=== PATIENT | male | born 1955 | race Caucasian/White ===

== ENCOUNTER → 2017-07-12 | Outpatient (CLI) | payer OTHER ==
[~2017-07-12] MED LIST: ASPEC81 PO; EMPA1TAB PO; INSDGIPEN SC; LPR25 PO; LPT40 PO; LSN5 PO; METF750T PO; NTRSLP4 SL; PLV75 PO
== END | disposition home or self-care (01) ==
LOC: C.LABSPEC 17:39
PROVIDERS: ATTEND Urology
DX: R31.0 Gross hematuria (principal); N40.1 Benign prostatic hyperplasia with lower urinary tract symptoms

== ENCOUNTER → 2017-08-01 | Outpatient (CLI) | payer OTHER ==
[2017-08-01 13:08] LABS: ALT/SGPT 61 U/L (12-78); AST/SGOT 26 U/L (15-37); BLOOD UREA NITROGEN 14 mg/dl (7-18); BUN/CREATININE RATIO 13.5 (10-20); CALCIUM 8.9 mg/dl (8.5-10.1); CARBON DIOXIDE 24 mmol/L (21-32); CHLORIDE 106 mmol/L (98-107); CREATININE 1.04 mg/dl (0.60-1.40); GLUCOSE 158 mg/dl (70-99); POTASSIUM 3.8 mmol/L (3.5-5.1); SODIUM 137 mmol/L (136-145)
[2017-08-01 13:11] LABS: ALB/GLOB RATIO 1.3 (0.9-2); ALKALINE PHOSPHATASE 70 U/L (45-117)
== END | disposition home or self-care (01) ==
LOC: C.LAB 11:14
PROVIDERS: ATTEND Urology
DX: R31.0 Gross hematuria (principal); N40.1 Benign prostatic hyperplasia with lower urinary tract symptoms

== ENCOUNTER 2017-08-07 07:53 | Emergency (ER) | payer OTHER ==
[2017-08-07 08:06] VITALS: TEMP 36.6; Ht 182.9 cm
[2017-08-07] MEDS ORDERED: REPA1TAB5 PO (08:15)
[2017-08-07] MEDS ORDERED: ULT50 PO (08:15)
[2017-08-07] MEDS ORDERED: JNV100 PO (08:15)
[2017-08-07 09:37] LABS: URINE APPEARANCE CLEAR (CLEAR); URINE BILIRUBIN NEG (NEG); URINE COLOR YELLOW; URINE EPITHELIAL CELL AUTO 20-30 /lpf (0-5); URINE NITRITE NEG (NEG); URINE PH 5.5 (4.5-7.5); URINE SPECIFIC GRAVITY 1.013 (1.000-1.030); UROBILINOGEN NEG (NEG); ZZURINE CULT IF INDIC CATH NO
[2017-08-07 09:38] LABS: MANUAL MICROSCOPIC REQUIRED? NO; REVIEW REQ? NO
[2017-08-07] MEDS ORDERED: MoRPHine SULFATE 4 MG/ML 1 ML CARP\\VIAL IV STA ×2 (10:44→11:41)
[2017-08-07 11:49] LABS: BLOOD UREA NITROGEN 14 mg/dl (7-18); BUN/CREATININE RATIO 12.7 (10-20); CALCIUM 8.9 mg/dl (8.5-10.1); CARBON DIOXIDE 24 mmol/L (21-32); CHLORIDE 106 mmol/L (98-107); CREATININE 1.12 mg/dl (0.60-1.40); GLUCOSE 96 mg/dl (70-99); SODIUM 139 mmol/L (136-145)
[2017-08-07] MEDS ORDERED: HYDROmorphone INJ 2 MG/ML SYR/VIAL IV STA (12:50)
[2017-08-07] MEDS ORDERED: OPTIRAY 320 IV PRN (13:00)
[2017-08-07 13:40] LABS: HEMATOCRIT 42.4 % (42-52); MEAN CORPUSCULAR HEMOGLOBIN 32.1 pg (25-34); MEAN CORPUSCULAR HGB CONC 34.9 g/dl (32-36); MEAN PLATELET VOLUME 10.3 fL (7.4-10.4); PLATELET COUNT 170 K/uL (130-400); RED BLOOD COUNT 4.61 M/uL (4.7-6.1); WHITE BLOOD COUNT 9.48 K/uL (4.8-10.8)
--- NOTE | 2017-08-07 13:53 | DIAGNOSTIC IMAGING REPORT ---
ABD/PELVIS IV CONTRAST ONLY CLINICAL HISTORY: 62 years-old Male presenting with pelvis pain, bladder mass, hematuria, urinary symptoms. TECHNIQUE: Multidetector CT of the abdomen and pelvis was performed after the administration of intravenous contrast. IV contrast: 92 mL of Optiray 320. A dose lowering technique was used consistent with the principles of ALARA (as low as reasonably achievable). COMPARISON: None. CT DOSE (mGy.cm): The estimated cumulative dose is 1538.25 mGycm. FINDINGS: Communication Technician topogram: Diffuse small bowel gaseous distention. Lung bases: Minimal dependent changes likely atelectasis. Solid triangular peripheral nodule in the right middle lobe measuring 4 mm (see series 3 image 50). Normal heart size. Coronary artery calcification. No pericardial or pleural effusion. Liver: Normal morphology. No liver lesion. Patent hepatic vasculature. Biliary: No intrahepatic or extrahepatic biliary ductal dilatation. Normal gallbladder. Pancreas: Normal. Spleen: Normal. Adrenal glands: Normal. Kidneys and ureters: Mild right pelvocaliectasis with dilatation of the right ureter to the level of the right ureterovesical junction. No significant urothelial thickening along the ureter though periureteral fat stranding is noted along the right ureter. Relative hypoperfusion of the right kidney. Punctate nonobstructing calculus at the upper pole the right kidney. Multiple subcentimeter hypodensities in the kidneys bilaterally most likely cysts. Left ureter normal. Bladder: Irregular bladder wall thickening greatest along the right lateral aspect and at the fundus. This is even better characterized on delayed imaging with partial opacification of the urinary bladder. A Hernandez catheter decompresses the urinary bladder on initial phase. Pelvic organs: Prostate and seminal vesicles normal. Bowel: Diverticulosis of the sigmoid colon. Mild stool burden throughout normal caliber colon. Normal appendix. No bowel obstruction. Mild gaseous and fluid distention of small bowel in the left mid abdomen. Peritoneal cavity: No free fluid or intraperitoneal gas. Lymph nodes: No enlarged lymph nodes in the abdomen or pelvis. Vasculature: Atherosclerosis of the normal caliber abdominal aorta. IVC patent. Abdominal wall: Normal. Musculoskeletal: Degenerative changes of the spine. IMPRESSION: 1. Irregular bladder wall thickening along the right lateral aspect and at the fundus most consistent with bladder neoplasm, likely of urothelial origin. This results in mild right hydroureteronephrosis. No CT evidence of additional urothelial neoplasm allowing for nonopacification of the right renal collecting system. No lymphadenopathy or evidence of metastatic disease in the abdomen or pelvis. 2. Diverticulosis. 3. Solid subpleural 4 mm nodule in the right middle lobe. Electronically signed by: Benton Recio M.D. 08/07/2017 1:52 PM Dictated Date/Time: 08/07/2017 1:43 PM
--- NOTE | 2017-08-07 15:14 | EMERGENCY ROOM VISIT NOTE ---
History Report prepared by Francisco: Kaye Moreira Under the Supervision of: Dr. Harinder Chong D.O. First contact with patient: 08:25 Chief Complaint: URINARY SYMPTOMS Stated Complaint: URINARY SYMPTOMS Nursing Triage Summary: patient reports he has a tumor in his baldder he has been dealing with. It gets painful when it swells. I can only void small amounts at a time. but when it swells I also have trouble going number 2. last bm was this morning. patient has noticed some blood in urine from time to time. takes 81 mg asprin. History of Present Illness The patient is a 62 year old male who presents to the Emergency Room with complaints of persistent urinary symptoms for the past several days. He currently rates his discomfort as a 6/10 in severity. The patient reports that a few weeks ago he was diagnosed with a bladder tumor, noting that he follows with urology and oncology at [facility]. He states that recently he has had difficulty urinating and has been experiencing urinary retention. The patient states that when he urinates it is painful and additionally notes frequency. He report hematuria as well. The patient states that he has been constipated. He reports lower abdominal pain today with his symptoms. Source of History: patient Onset: past several days Position: other (global) Symptom Intensity: 6/10 Quality: other (urinary symptoms) Timing: other (persistent) Associated Symptoms: + abdominal pain (lower), + urinary symptoms (hematuria , frequency, painful urination, urinary retention) Review of Systems See HPI for pertinent positives & negatives. A total of 10 systems reviewed and were otherwise negative. Past Medical & Surgical Medical Problems: (1) Chronic back pain (2) Diabetes mellitus (3) Dyslipidemia Family History Cancer Diabetes mellitus Social History Smoking Status: Never Smoker Drug Use: none Marital Status: Housing Status: lives with significant other Occupation Status: retired Current/Historical Medications Scheduled Aspirin (Aspirin EC Low Dose), 81 MG PO QAM Atorvastatin (Atorvastatin Calcium), 80 MG PO QAM Clopidogrel Bisulfate (Clopidogrel), 75 MG PO QAM Insulin Glargine (Lantus Solostar), 10 UNIT SC DAILY Lisinopril (Lisinopril), 5 MG PO QAM Metformin Hcl (Glucophage Er), 750 MG PO BID Metoprolol Tartrate (Lopressor), 25 MG PO Q12 Repaglinide (Prandin), 0.5 MG PO DAILY Sitagliptin (Januvia), 100 MG PO QAM Scheduled PRN Tramadol HCl (Tramadol HCl), 50 MG PO UD PRN for Pain Allergies Coded Allergies: No Known Allergies (Unverified , 08/07/17) Physical Exam Vital Signs Date Time Temp Pulse Resp B/P (MAP) Pulse Ox O2 Delivery O2 Flow Rate FiO2 08/07/17 15:09 47 18 153/87 97 Room Air 08/07/17 12:57 60 16 123/78 95 Room Air 08/07/17 12:36 56 20 122/75 94 Room Air 08/07/17 11:13 52 18 167/95 98 Room Air 08/07/17 09:28 56 18 141/85 98 Room Air 08/07/17 08:06 36.6 59 18 150/87 98 Room Air Physical Exam CONSTITUTIONAL/VITAL SIGNS: Reviewed / noted above. GENERAL: Non-toxic in appearance. INTEGUMENTARY: Warm, dry, and [place]. HEAD: Normocephalic. EYES: without scleral icterus or trauma. ENT/OROPHARYNX: clear and moist. LYMPHADENOPATHY/NECK: Is supple without lymphadenopathy or meningismus. RESPIRATORY: Lungs clear and equal. CARDIOVASCULAR: Regular rate and rhythm. GI/ABDOMEN: Soft and tender in the suprapubic area. No organomegaly or pulsatile mass. No rebound or guarding. Normal bowel sounds. EXTREMITIES: Warm and well perfused. BACK: No CVA tenderness. NEUROLOGICAL: Intact without focal deficits. PSYCHIATRIC: normal affect. MUSCULOSKELETAL: Normally developed with good muscle tone. TRIAGE NURSING DOCUMENTATION REVIEWED. Medical Decision & Procedures ER Provider Diagnostic Interpretation: CT results as stated below per my review and radiologist interpretation: ABD/PELVIS IV CONTRAST ONLY CLINICAL HISTORY: 62 years-old Male presenting with pelvis pain, bladder mass, hematuria, urinary symptoms. TECHNIQUE: Multidetector CT of the abdomen and pelvis was performed after the administration of intravenous contrast. IV contrast: 92 mL of Optiray 320. A dose lowering technique was used consistent with the principles of ALARA (as low as reasonably achievable). COMPARISON: None. CT DOSE (mGy.cm): The estimated cumulative dose is 1538.25 mGycm. FINDINGS: Animal Care Giver topogram: Diffuse small bowel gaseous distention. Lung bases: Minimal dependent changes likely atelectasis. Solid triangular peripheral nodule in the right middle lobe measuring 4 mm (see series 3 image 50). Normal heart size. Coronary artery calcification. No pericardial or pleural effusion. Liver: Normal morphology. No liver lesion. Patent hepatic vasculature. Biliary: No intrahepatic or extrahepatic biliary ductal dilatation. Normal gallbladder. Pancreas: Normal. Spleen: Normal. Adrenal glands: Normal. Kidneys and ureters: Mild right pelvocaliectasis with dilatation of the right ureter to the level of the right ureterovesical junction. No significant urothelial thickening along the ureter though periureteral fat stranding is noted along the right ureter. Relative hypoperfusion of the right kidney. Punctate nonobstructing calculus at the upper pole the right kidney. Multiple subcentimeter hypodensities in the kidneys bilaterally most likely cysts. Left ureter normal. Bladder: Irregular bladder wall thickening greatest along the right lateral aspect and at the fundus. This is even better characterized on delayed imaging with partial opacification of the urinary bladder. A Hernandez catheter decompresses the urinary bladder on initial phase. Pelvic organs: Prostate and seminal vesicles normal. Bowel: Diverticulosis of the sigmoid colon. Mild stool burden throughout normal caliber colon. Normal appendix. No bowel obstruction. Mild gaseous and fluid distention of small bowel in the left mid abdomen. Peritoneal cavity: No free fluid or intraperitoneal gas. Lymph nodes: No enlarged lymph nodes in the abdomen or pelvis. Vasculature: Atherosclerosis of the normal caliber abdominal aorta. IVC patent. Abdominal wall: Normal. Musculoskeletal: Degenerative changes of the spine. IMPRESSION: 1. Irregular bladder wall thickening along the right lateral aspect and at the fundus most consistent with bladder neoplasm, likely of urothelial origin. This results in mild right hydroureteronephrosis. No CT evidence of additional urothelial neoplasm allowing for nonopacification of the right renal collecting system. No lymphadenopathy or evidence of metastatic disease in the abdomen or pelvis. 2. Diverticulosis. 3. Solid subpleural 4 mm nodule in the right middle lobe. Electronically signed by: Benton Recio M.D. 08/07/2017 1:52 PM Dictated Date/Time: 08/07/2017 1:43 PM Laboratory Results 08/07/17 11:00 08/07/17 11:00 Test 08/07/17 09:20 08/07/17 11:00 Urine Color YELLOW Urine Appearance CLEAR (CLEAR) Urine pH 5.5 (4.5-7.5) Urine Specific [place] 1.013 (1.000-1.030) Urine Protein NEG (NEG) Urine Glucose (UA) NEG (NEG) Urine Ketones NEG (NEG) Urine Occult Blood 2+ (NEG) Urine Nitrite NEG (NEG) Urine Bilirubin NEG (NEG) Urine Urobilinogen NEG (NEG) Urine Leukocyte Esterase NEG (NEG) Urine WBC (Auto) 1-5 /hpf (0-5) Urine RBC (Auto) 10-30 /hpf (0-4) Urine Hyaline Casts (Auto) 1-5 /lpf (0-5) Urine Epithelial Cells (Auto) 20-30 /lpf (0-5) Urine Bacteria (Auto) NEG (NEG) Red Blood Count 4.61 M/uL (4.7-6.1) Mean Corpuscular Volume 92.0 fL (80-100) Mean Corpuscular Hemoglobin 32.1 pg (25-34) Mean Corpuscular Hemoglobin Concent 34.9 g/dl (32-36) RDW Standard Deviation 43.9 fL (36.4-46.3) RDW Coefficient of Variation 13.0 % (11.5-14.5) Mean Platelet Volume 10.3 fL (7.4-10.4) Anion Gap 9.0 mmol/L (3-11) Estimated GFR () 80.6 Estimated GFR (Non- 69.5 BUN/Creatinine Ratio 12.7 (10-20) Calcium Level 8.9 mg/dl (8.5-10.1) Laboratory results as stated above per my review. Medications Administered Medications (Trade) Dose Ordered Sig/Young Route Start Time Stop Time Status Last Admin Dose Admin Morphine Sulfate (MoRPHine SULFATE INJ) 4 mg NOW STAT IV 08/07/17 10:44 08/07/17 10:45 DC 08/07/17 10:59 4 MG Morphine Sulfate (MoRPHine SULFATE INJ) 4 mg NOW STAT IV 08/07/17 11:41 08/07/17 11:42 DC 08/07/17 11:49 4 MG Hydromorphone HCl (Dilaudid Inj) 2 mg NOW STAT IV 08/07/17 12:50 08/07/17 12:52 DC 08/07/17 12:57 2 MG ED Course 0935: Previous medical records were reviewed. The patient was evaluated in room A3. A complete history and physical examination was performed. 1015: The patients case was discussed with [facility]. She states that the plan is to have the patient follow up with his doctors in [place] on as planned and then a plan will be devised from there. She notes that she spoke to the patients daughter regarding this. 1044: Ordered Morphine Sulfate 4 mg IV. 1050: I reevaluated the patient and he is resting. I discussed the test results with him and I discussed the treatment plan. He verbalized complete understanding and agreement. 1141: Ordered Morphine Sulfate 4 mg IV. 1250: Ordered Dilaudid Inj 2 mg IV. 1406: I reevaluated the patient and he is resting. I discussed the test results with the patient and he verbalized complete understanding and agreement. He states that his pain has improved. 1429: I discussed the patients case with Dr. Orlando, [facility]. He states that they will accept the patient as a transfer to their facility for further evaluation and treatment. 1435: I reevaluated the patient and he is resting. I discussed the treatment plan and he verbalized complete understanding and agreement. The patient will be transferred to [facility] for further evaluation and treatment. Medical Decision Differential considered: pancreatitis, hepatitis, acute cholecystitis, AAA, UTI , pyelonephritis, kidney stones, appendicitis, diverticulitis, shingles, bowel obstruction, mesenteric ischemia, intussusception,hernia, testicular torsion, ovarian torsion, ruptured ovarian cyst,ectopic , . This is a 62-year-old male who presents to the ED with a chief complaint of having been diagnosed with a bladder tumor several weeks ago. He was having discomfort in the bladder and came to the ED for evaluation. He thought that he might be obstructed. The patient has seen Dr. Moralez for this in the past. He has been referred to [place] and has an appointment on for testing. The patient has been taking Ultram and Motrin for his pain at home. His exam reveals some tenderness over the suprapubic area. A Hernandez catheter was placed and only 200 mL of urine was obtained. The patient's discomfort is likely related to his bladder tumor which is around 7 cm. Urine did not show obvious infection. Kidney function is normal. The patient was treated with IV morphine for pain. Blood work here reveals a normal CBC and chemistry panel. Urine did not show obvious infection. Medication Reconcilliation Current Medication List: was personally reviewed by me Consults Time Called: 1010 Consulting Physician: Dennis Eason Returned Call: [phone] The patients case was discussed with Dennis Eason. She states that the plan is to have the patient follow up with his doctors in [place] on as planned and then a plan will be devised from there. She notes that she spoke to the patients daughter regarding this. Additional Consults: Time Called: 1420 Consulted Physician: Dennis Ovalles Returned Call: [phone] Additional Comments: I discussed the patients case with Dr. Orlando, [facility]. He states that they will accept the patient as a transfer to their facility for further evaluation and treatment. Impression Primary Impression: Bladder neoplasm Additional Impression: Intractable abdominal pain Scribe Attestation The scribe's documentation has been prepared under my direction and personally reviewed by me in its entirety. I confirm that the note above accurately reflects all work, treatment, procedures, and medical decision making performed by me. Departure Information Dispostion Transfer Acute Care Facility Referrals No Doctor, Assigned (PCP) Problem Qualifiers
[2017-08-07 16:15] VITALS: BP 154/82; PULSE 52; O2SAT 97
== END 2017-08-07 16:20 | disposition short-term general hospital (02) ==
LOC: C.EDB 07:55 → C.EDA 16:20
DX: D41.4 Neoplasm of uncertain behavior of bladder (principal); R10.9 Unspecified abdominal pain; E11.9 Type 2 diabetes mellitus without complications; E78.5 Hyperlipidemia, unspecified; Z83.3 Family history of diabetes mellitus; Z79.82 Long term (current) use of aspirin; Z79.02 Long term (current) use of antithrombotics/antiplatelets; Z79.4 Long term (current) use of insulin; Z79.84 Long term (current) use of oral hypoglycemic drugs; Z79.899 Other long term (current) drug therapy

== ENCOUNTER → 2017-08-17 | Outpatient (CLI) | payer OTHER ==
[~2017-08-17] MED LIST changes: +ALBU18002 INH; +ASPI81TA28 PO; +ATOR-26 PO; +CITA10TA4 PO; +DOCU-94 PO; +DTR/5 PO; -EMPA1TAB PO; +GABA-113 PO; +GLIM4TAB2 PO; +JNV100 PO; +LISI-729 PO; +METO25TA56 PO; -NTRSLP4 SL; +ONDA8TAB62 SL; +OXYC1TAB3 PO; +PHEN-876 PO; +REPA1TAB5 PO; +SULF800T23 PO; +TAMS0.4C38 PO; +ULT50 PO
[2017-08-17 11:41] LABS: HEMATOCRIT 42.4 % (42-52); MEAN CELL VOLUME 93.4 fL (80-100); MEAN CORPUSCULAR HEMOGLOBIN 32.2 pg (25-34); MEAN CORPUSCULAR HGB CONC 34.4 g/dl (32-36); MEAN PLATELET VOLUME 10.3 fL (7.4-10.4); PLATELET COUNT 243 K/uL (130-400); RED BLOOD COUNT 4.54 M/uL (4.7-6.1)
[2017-08-17 12:08] LABS: ALB/GLOB RATIO 0.9 (0.9-2); ALKALINE PHOSPHATASE 85 U/L (45-117); ALT/SGPT 57 U/L (12-78); AST/SGOT 25 U/L (15-37); BLOOD UREA NITROGEN 16 mg/dl (7-18); BUN/CREATININE RATIO 12.5 (10-20); CALCIUM 8.8 mg/dl (8.5-10.1); CARBON DIOXIDE 29 mmol/L (21-32); CHLORIDE 102 mmol/L (98-107); CREATININE 1.24 mg/dl (0.60-1.40); GLUCOSE 84 mg/dl (70-99); POTASSIUM 4.2 mmol/L (3.5-5.1); SODIUM 138 mmol/L (136-145)
== END | disposition home or self-care (01) ==
LOC: C.LAB 10:54
PROVIDERS: ATTEND Urology
DX: C67.9 Malignant neoplasm of bladder, unspecified (principal)

== ENCOUNTER 2017-08-21 23:08 | Emergency (ER) | payer OTHER ==
[~2017-08-21] VITALS: Ht 182.9 cm; Wt 105.1 kg
[~2017-08-21 23:08] MED LIST changes: -ALBU18002 INH; -ASPI81TA28 PO; -ATOR-26 PO; -CITA10TA4 PO; -DOCU-94 PO; -DTR/5 PO; -GABA-113 PO; -GLIM4TAB2 PO; -JNV100 PO; -LISI-729 PO; -METF750T PO; -METO25TA56 PO; -ONDA8TAB62 SL; -OXYC1TAB3 PO; -PHEN-876 PO; -REPA1TAB5 PO; -SULF800T23 PO; -TAMS0.4C38 PO
[2017-08-21 23:12] VITALS: TEMP 36.3; Ht 182.9 cm; Wt 105.1 kg
[2017-08-21] MEDS ORDERED: ONDANSETRON INJ 2 MG/ML 2 ML VIAL IV STA (23:40)
[2017-08-21] MEDS ORDERED: MoRPHine SULFATE 10 MG/ML CARP/VIAL IV STA (23:40)
--- NOTE | 2017-08-21 23:48 | EMERGENCY ROOM VISIT NOTE ---
History Report prepared by Francisco: Dmitriy Tate Under the Supervision of: Dr. Keyana Dowling D.O. First contact with patient: 23:18 Chief Complaint: ABDOMINAL PAIN Stated Complaint: BLADDER PAIN History of Present Illness The patient is a 62 year old male who presents to the Emergency Room with complaints of lower abdominal pain that began a couple of months ago, but worsened over the past three days. He rates his pain a 9/10 in severity. 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 He believes his pain to be stemming from his tumor. 10 days ago, he was unable to urinate, so he had a Hernandez catheter placed. Today, he noticed that his Hernandez has been draining blood intermittently whenever he attempts to pass gas or have a bowel movement. He notes that he is taking 2 Oxycodone every four hours with a stool softener and a high fiber diet. He feels as if he either is constipated or has a excess of gas built up. His last bowel movement was yesterday. He has also been experiencing chills and shaking. He denies any hematochezia. Source of History: patient Onset: three nights ago Position: abdomen (lower) Symptom Intensity: 9/10 Quality: sharp Timing: worsening Associated Symptoms: + chills, + urinary symptoms (hematuria while attempting to pass gas/bowel matter), No hematochezia Review of Systems See HPI for pertinent positives & negatives. A total of 10 systems reviewed and were otherwise negative. Past Medical & Surgical Medical Problems: (1) Chronic back pain (2) Diabetes mellitus (3) Dyslipidemia Family History Cancer Diabetes mellitus Social History Smoking Status: Former Smoker Drug Use: none Marital Status: Housing Status: lives with significant other Occupation Status: retired Current/Historical Medications Scheduled Aspirin (Aspirin Ec), 81 MG PO QAM Atorvastatin (Lipitor), 80 MG PO DAILY Glimepiride (Glimepiride), 4 MG PO BID Lisinopril (Zestril), 5 MG PO QAM Metformin Hcl (Glucophage Er), 750 MG PO BID Metoprolol Tartrate (Lopressor) (Lopressor), 25 MG PO Q12 Repaglinide (Prandin), 0.5 MG PO DAILY Sitagliptin (Januvia), 100 MG PO QAM Sulfamethoxazole-Trimethoprim (Bactrim Ds 800MG/160MG), 1 TAB PO BID Scheduled PRN Albuterol Sulfate (Proair Respiclick), 2 PUFFS INH UD PRN for SOB/Wheezing Oxycodone Immediate Rel Tab (Roxicodone Ir), 1-2 TAB PO Q4H PRN for Severe Pain Allergies Coded Allergies: No Known Allergies (Unverified , 08/07/17) Physical Exam Vital Signs Date Time Temp Pulse Resp B/P (MAP) Pulse Ox O2 Delivery O2 Flow Rate FiO2 08/22/17 04:16 75 18 114/63 95 08/22/17 02:48 62 18 118/59 97 Nasal Cannula 2.0 08/22/17 00:56 66 18 116/66 93 Room Air 08/21/17 23:12 36.3 75 18 137/78 96 Room Air Physical Exam HEENT: Head - normocephalic and atraumatic Pupils are equal, round, and reactive to light. Extraocular eye muscles are intact, and sclera are anicteric. Nose - moist nasal mucosa without discharge. Mouth - moist buccal mucosa. Oropharynx is nonerythematous and there is no tonsillar exudate or edema noted. Neck: Supple; no JVD, nuchal rigidity, cervical lymphadenopathy. Heart: Regular rate and rhythm. There is a normal S1 and S2 with no murmurs, clicks, or gallops appreciated. Lungs: Clear to auscultation bilaterally with no wheezes, rales, or rhonchi. Abdomen: Soft, exquisite pain to palpation suprapubically and to the LLQ, nondistended, with good bowel sounds. There are no palpable pulsatile masses or hepatosplenomegaly. There is no guarding, rigidity, or rebound noted. A Hernandez catheter is in place. Extremities: No evidence of cyanosis, clubbing, or edema. There are easily palpable peripheral pulses. Skin: warm and dry with good turgor and no rashes. Medical Decision & Procedures ER Provider Diagnostic Interpretation: Radiology results as stated below per my review and the radiologist's interpretation: ABDOMEN X-RAY: Air fluid levels in the LUQ concerning for a small bowel obstruction. Stool in the right colon. No free air. Per me CT ABDOMEN & PELVIS With Contrast: Comparison is made to prior CT abdomen/pelvis on 08/07/2017. Interval placement of a right ureteral stent with slightly decreased but persistent moderate right hydroureteronephrosis likely due to obstruction by a mass in the bladder. Hernandez catheter again noted in the decompressed bladder. Fat stranding surrounding the bladder persistent right-sided bladder mass. Nonspecific hypodensities in both kidneys. Normal appendix. Diverticulosis without evidence of diverticulitis. No bowel obstruction or inflammation. Mild prominence of small bowel loops containing gas and fluid are nonspecific but may represent enteritis or ileus. Tiny fat-containing umbilical hernia. Radiologist: Michel Garcia M.D. Laboratory Results 08/21/17 23:50 Red Blood Count 4.20, Mean Corpuscular Volume 90.7, Mean Corpuscular Hemoglobin 32.1, Mean Corpuscular Hemoglobin Concent 35.4, Mean Platelet Volume 10.0, Neutrophils (%) (Auto) 76.5, Lymphocytes (%) (Auto) 10.3, Monocytes (%) (Auto) 11.8, Eosinophils (%) (Auto) 0.8, Basophils (%) (Auto) 0.1, Neutrophils # (Auto ) 8.42, Lymphocytes # (Auto) 1.14, Monocytes # (Auto) 1.30, Eosinophils # (Auto ) 0.09, Basophils # (Auto) 0.01 08/21/17 23:50 Test 08/21/17 23:50 08/22/17 00:10 08/22/17 00:37 White Blood Count 11.02 K/uL (4.8-10.8) Red Blood Count 4.20 M/uL (4.7-6.1) Hemoglobin 13.5 g/dL (14.0-18.0) Hematocrit 38.1 % (42-52) Mean Corpuscular Volume 90.7 fL (80-100) Mean Corpuscular Hemoglobin 32.1 pg (25-34) Mean Corpuscular Hemoglobin Concent 35.4 g/dl (32-36) Platelet Count 213 K/uL (130-400) Mean Platelet Volume 10.0 fL (7.4-10.4) Neutrophils (%) (Auto) 76.5 % Lymphocytes (%) (Auto) 10.3 % Monocytes (%) (Auto) 11.8 % Eosinophils (%) (Auto) 0.8 % Basophils (%) (Auto) 0.1 % Neutrophils # (Auto) 8.42 K/uL (1.4-6.5) Lymphocytes # (Auto) 1.14 K/uL (1.2-3.4) Monocytes # (Auto) 1.30 K/uL (0.11-0.59) Eosinophils # (Auto) 0.09 K/uL (0-0.5) Basophils # (Auto) 0.01 K/uL (0-0.2) RDW Standard Deviation 40.9 fL (36.4-46.3) RDW Coefficient of Variation 12.3 % (11.5-14.5) Immature Granulocyte % (Auto) 0.5 % Immature Granulocyte # (Auto) 0.06 K/uL (0.00-0.02) Anion Gap 5.0 mmol/L (3-11) Est Creatinine Clear Calc Drug Dose 91.1 ml/min Estimated GFR () 88.1 Estimated GFR (Non- 76.1 BUN/Creatinine Ratio 12.1 (10-20) Calcium Level 8.6 mg/dl (8.5-10.1) Urine Color YELLOW Urine Appearance CLOUDY (CLEAR) Urine pH 6.0 (4.5-7.5) Urine Specific [place] 1.013 (1.000-1.030) Urine Protein 1+ (NEG) Urine Glucose (UA) NEG (NEG) Urine Ketones NEG (NEG) Urine Occult Blood 3+ (NEG) Urine Nitrite POS (NEG) Urine Bilirubin NEG (NEG) Urine Urobilinogen NEG (NEG) Urine Leukocyte Esterase LARGE (NEG) Urine WBC (Auto) >30 /hpf (0-5) Urine RBC (Auto) >30 /hpf (0-4) Urine Hyaline Casts (Auto) 1-5 /lpf (0-5) Urine Epithelial Cells (Auto) 10-20 /lpf (0-5) Urine Bacteria (Auto) 2+ (NEG) Prothrombin Time 11.3 SECONDS (9.0-12.0) Prothromb Time International Ratio 1.1 (0.9-1.1) Activated Partial Thromboplast Time 28.8 SECONDS (21.0-31.0) Partial Thromboplastin Ratio 1.1 Laboratory results per my review. Medications Administered Medications (Trade) Dose Ordered Sig/Young Route Start Time Stop Time Status Last Admin Dose Admin Morphine Sulfate (MoRPHine SULFATE INJ) 6 mg NOW STAT IV 08/21/17 23:40 08/21/17 23:43 DC 08/21/17 23:58 6 MG Ondansetron HCl (Zofran Inj) 4 mg NOW STAT IV 08/21/17 23:40 08/21/17 23:43 DC 08/21/17 23:58 4 MG Hydromorphone HCl (Dilaudid Inj) 2 mg NOW STAT IV 08/22/17 00:47 08/22/17 00:49 DC 08/22/17 00:52 2 MG Trimethoprim/ Sulfamethoxazole (Septra Ds 800/ 160MG Tab) 1 tab NOW STAT PO 08/22/17 02:37 08/22/17 02:38 DC 08/22/17 02:47 1 TAB Procedure Zofran Inj 4 mg IV Morphine Sulfate 6 mg IV Dilaudid Inj 2 mg IV Trimethoprim/Sulfamethoxazole 1 tab PO ED Course 2332: Past medical records reviewed. The patient was evaluated in room B2. A complete history and physical exam was performed. An IV lock was initiated and labs are drawn as above. 2338: Nurses performed a bladder scan at this time and were unable to see any urine in his bladder. 2340: Ordered Zofran Inj 4 mg IV, Morphine Sulfate 6 mg IV. The patient went for an obstruction series as described above. 0045: Upon reevaluation, the patient is still having significant pain without relief from the prior medications. A urine specimen was obtained from the Hernandez catheter appears to be infected. 0047: Ordered Dilaudid Inj 2 mg IV. There was concern for a small bowel obstruction on x-ray and therefore the patient went for a CT scan of the abdomen /pelvis. 0237: Ordered Trimethoprim/Sulfamethoxazole 1 tab PO 0243: The patient's pain has started to come back slightly. I discussed his results and the plan with him. 0402: The patient's is now at the bedside. Upon reevaluation, the patient is resting. I discussed findings and results with him. I also discussed the hazards of opioid addiction. He verbalized agreement of the treatment plan. He was discharged home. Medical Decision The patient is a 62 year old male who presents to the ED with abdominal pain. Differential diagnosis includes urinary outlet obstruction, cystitis, small bowel obstruction or colonic obstruction secondary to bladder tumor, and fecal impaction. Laboratory Results: White blood cell count of 11.0, stable H&H, normal renal function, glucose 115, normal coagulation studies, urinalysis significantly infected, 3+ blood, positive nitrite, large leukocyte esterase, 2+ bacteria, greater than thirty white and red cells This is a 62-year-old male patient with a history of a bladder mass. The patient is scheduled to have this removed on September 11. Unfortunately, the patient is now unable to move his bowels. This is thought to be secondary to the tumor in the bladder creating pressure on the lower colon. Despite taking stool softeners and Metamucil, the patient still does not have regular bowel movements. Urinalysis reveals a urinary tract infection at this time. The patient will be started on oral antibiotics and I will prescribe additional oxycodone as the patient describes that he has run out. I've asked the patient to stop all of his stool softeners, enemas, and Metamucil. I've asked him to start taking milk of magnesia daily. He should follow-up with his surgeon about tonight's presentation. [place] Drug Monitoring Program Search Results: patient reviewed within database, no issues identified Medication Reconcilliation Current Medication List: was personally reviewed by me Blood Pressure Screening Patient's blood pressure: Normal blood pressure Blood pressure disposition: Did not require urgent referral (The patient's pressures were elevated earlier, but I felt them to be situational secondary to his pain) Impression Primary Impression: UTI (urinary tract infection) Additional Impression: Constipation Scribe Attestation The scribe's documentation has been prepared under my direction and personally reviewed by me in its entirety. I confirm that the note above accurately reflects all work, treatment, procedures, and medical decision making performed by me. Departure Information Dispostion Home / Self-Care Prescriptions Oxycodone Immediate Rel Tab (ROXICODONE IR) 5 Mg Tab 1-2 TAB PO Q4H Y for Severe Pain, #20 TAB Prov: Keyana Dowling D.OMark 08/22/17 Sulfamethoxazole-Trimethoprim (Bactrim Ds 800MG/160MG) 1 Tab Tab 1 TAB PO BID, #20 TAB Prov: Keyana Dowling D.O. 08/22/17 Referrals Robbie Vaca D.O. (PCP) Forms Call Back Authorization, HOME CARE DOCUMENTATION FORM, IMPORTANT VISIT INFORMATION Patient Instructions Constipation, My [facility], UTI Additional Instructions Take milk of magnesia daily. Stop other stool softners Take Bactrim twice a day Follow up with Dr. Vaca today Problem Qualifiers Primary Impression: UTI (urinary tract infection) Urinary tract infection type: acute cystitis Hematuria presence: with hematuria Qualified Codes: N30.01 - Acute cystitis with hematuria Additional Impression: Constipation Constipation type: unspecified constipation type Qualified Codes: K59.00 - Constipation, unspecified
[2017-08-22 00:05] LABS: BASO % 0.1 %; BASO ABS # 0.01 K/uL (0-0.2); COMPLETE YES; EOS % 0.8 %; HEMATOCRIT 38.1 % (42-52); IG% 0.5 %; LYMPH % 10.3 %; LYMPH ABS # 1.14 K/uL (1.2-3.4); MEAN CELL VOLUME 90.7 fL (80-100); MEAN CORPUSCULAR HEMOGLOBIN 32.1 pg (25-34); MEAN CORPUSCULAR HGB CONC 35.4 g/dl (32-36); MONO % 11.8 %; NEUT % 76.5 %; PLATELET COUNT 213 K/uL (130-400); WHITE BLOOD COUNT 11.02 K/uL (4.8-10.8)
[2017-08-22] MEDS ORDERED: GLIM4TAB2 PO (00:08)
[2017-08-22] MEDS ORDERED: ALBU18002 INH (00:08)
[2017-08-22] MEDS ORDERED: LISI-729 PO (00:08)
[2017-08-22] MEDS ORDERED: ATOR-26 PO (00:08)
[2017-08-22] MEDS ORDERED: METO25TA56 PO (00:08)
[2017-08-22] MEDS ORDERED: ASPI81TA28 PO (00:09)
[2017-08-22 00:23] LABS: BUN/CREATININE RATIO 12.1 (10-20); CALCIUM 8.6 mg/dl (8.5-10.1); CREATININE 1.04 mg/dl (0.60-1.40); POTASSIUM 3.8 mmol/L (3.5-5.1)
[2017-08-22 00:26] LABS: URINE APPEARANCE CLOUDY (CLEAR); URINE BILIRUBIN NEG (NEG); URINE COLOR YELLOW; URINE NITRITE POS (NEG); URINE SPECIFIC GRAVITY 1.013 (1.000-1.030); UROBILINOGEN NEG (NEG)
[2017-08-22 00:33] LABS: MANUAL MICROSCOPIC REQUIRED? NO; REVIEW REQ? NO
[2017-08-22] MEDS ORDERED: HYDROmorphone INJ 2 MG/ML SYR/VIAL IV STA (00:47)
[2017-08-22 01:00] LABS: INR 1.1 (0.9-1.1); PARTIAL THROMBOPLASTIN RATIO 1.1; PROTHROMBIN TIME (PATIENT) 11.3 SECONDS (9.0-12.0)
[2017-08-22] MEDS ORDERED: OPTIRAY 320 IV PRN (01:15)
[2017-08-22] MEDS ORDERED: SULFAMETHOXAZOLE/TRIMETHOPRIM DS 800/160MG TAB PO STA (02:37)
[2017-08-22] MEDS ORDERED: SULF800T23 PO (04:07)
[2017-08-22] MEDS ORDERED: OXYC1TAB3 PO (04:07)
[2017-08-22 04:16] VITALS: BP 114/63; PULSE 75; O2SAT 95
--- NOTE | 2017-08-22 07:14 | DIAGNOSTIC IMAGING REPORT ---
PA CHEST WITH ABDOMINAL SERIES CLINICAL HISTORY: Generalized abdominal pain. FINDINGS: 2 PA chest radiographs are compared to study dated 12/13/2015. The cardiomediastinal silhouette is unremarkable. The lungs and pleural spaces are clear. No pneumothorax is seen. The bony thorax is grossly intact. Supine and erect abdominal radiographs are compared to study dated 08/07/2017. There is a nonobstructed abdominal bowel gas pattern. Moderate to severe constipation is observed. A catheter projects over the pelvis. No evidence of intraperitoneal free air is seen. A right ureteral stent is in place. There are no abnormal abdominal calcifications. Phleboliths are seen in the left hemipelvis. There is moderate lumbosacral spondylosis. The lumbosacral spine and bony pelvis appear intact. IMPRESSION: 1. No active disease in the chest. 2. Nonobstructed abdominal bowel gas pattern noting moderate to severe constipation. 3. A right ureteral stent is new from previous. Electronically signed by: Tino Pandey M.D. 08/22/2017 7:13 AM Dictated Date/Time: 08/22/2017 7:11 AM
--- NOTE | 2017-08-22 07:17 | DIAGNOSTIC IMAGING REPORT ---
ABDOMEN AND PELVIS CT WITH IV CONTRAST CT DOSE: 802.27 mGy.cm HISTORY: Generalized abdominal pain. eval for sbo; history of bladder tumor TECHNIQUE: Multiaxial CT images of the abdomen and pelvis were performed following the use of intravenous contrast. A dose lowering technique was utilized adhering to the principles of ALARA. COMPARISON STUDY: Abdomen and pelvis CT 08/07/2017. FINDINGS: The lung bases are clear. No suspicious lytic or blastic osseous lesions. The liver, gallbladder, spleen, adrenal glands, and pancreas are unremarkable. There are few bilateral renal hypodense lesions. The majorities are subcentimeter in size and too small to characterize. Dominant lesion within the lower pole the right kidney measures 1.4 cm. This favors a cyst. No left-sided hydronephrosis. Mild right hydronephrosis is improved. A right ureteral stent is in good position. There is mild urothelial thickening within the right ureter. Irregular bladder wall thickening along the right side and anteriorly. Hernandez catheter is in place. Mild fast rating surrounding the bladder. A few prominent loops of fluid-filled small bowel within the left mid abdomen. However, there is no transition point to suggest an obstruction at this time. Colonic diverticulosis. No evidence for diverticulitis. Normal appendix. IMPRESSION: 1. A few borderline dilated fluid-filled loops of small bowel within the left midabdomen. These are not significantly changed compared the prior study. No transition point to suggest an obstruction at this time. 2. Interval placement of a right ureteral stent. The mild right hydronephrosis is improved. 3. Mild urothelial thickening within the right ureter has progressed. This could be reactive to the ureteral stent. 4. Right lateral and anterior bladder wall thickening/mass are again noted. 5. Colonic diverticulosis. 6. Normal appendix. Electronically signed by: Gt Rosario M.D. 08/22/2017 7:16 AM Dictated Date/Time: 08/22/2017 7:10 AM
[2017-08-22] MEDS ORDERED: REPA1TAB5 PO (08:15)
[2017-08-22] MEDS ORDERED: JNV100 PO (08:15)
[2017-08-22] MEDS ORDERED: METF750T PO (23:05)
--- NOTE | 2017-08-24 12:45 | Pharmacy Progress Note ---
ED Pharmacist Culture FollowUp Date of Service: Aug 24, 2017. Patient was sent home with a prescription for bactrim, which should cover the klebsiella pneumonia growing from the patient's urine culture.
[2017-08-29] MEDS ORDERED: OXYC1TAB3 PO (09:47)
[2017-08-29] MEDS ORDERED: GABA-113 PO (09:47)
[2017-08-29] MEDS ORDERED: SULF800T23 PO (09:47)
[2017-08-31] MEDS ORDERED: ONDA8TAB62 SL (11:43)
[2017-08-31] MEDS ORDERED: PHEN-876 PO (11:43)
[2017-08-31] MEDS ORDERED: DTR/5 PO (11:43)
[2017-08-31] MEDS ORDERED: TAMS0.4C38 PO (11:43)
[2017-08-31] MEDS ORDERED: DOCU-94 PO (11:43)
[2017-08-31] MEDS ORDERED: CITA10TA4 PO (11:43)
== END 2017-08-22 04:16 | disposition home or self-care (01) ==
LOC: C.EDB 23:09
DX: N39.0 Urinary tract infection, site not specified (principal); K59.00 Constipation, unspecified; E11.9 Type 2 diabetes mellitus without complications; E78.5 Hyperlipidemia, unspecified; G89.29 Other chronic pain; Z87.891 Personal history of nicotine dependence; Z79.82 Long term (current) use of aspirin; Z79.84 Long term (current) use of oral hypoglycemic drugs; Z79.899 Other long term (current) drug therapy; Z80.9 Family history of malignant neoplasm, unspecified; Z83.3 Family history of diabetes mellitus

== ENCOUNTER → 2017-08-29 | Outpatient (CLI) | payer OTHER ==
[~2017-08-29] MED LIST changes: +ALBU18002 INH; -ASPEC81 PO; +ASPI81TA28 PO; +ATOR-26 PO; +CITA10TA4 PO; +CLC100 PO; +CPR500 PO; +DFL100 PO; +DOCU-94 PO; +DRGTP75 TD; +DTR/5 PO; +ENOX30IN4 SQ; +GABA-113 PO; +GLIM4TAB2 PO; +HYDR-5688 PO; -INSDGIPEN SC; +JNV100 PO; +LCTL45 PO; +LISI-729 PO; -LPR25 PO; -LPT40 PO; +LSN25 PO; -LSN5 PO; +METF750T PO; +METO25TA56 PO; +MISCCAP80 PO; +MRLP17X PO; +MTML PO; +MTR500 PO; +NITR-5 PO; +NRN300 PO; +NRN600 PO; +NUTR-7 PO; +ONDA8TAB62 SL; +OXYC-594 PO; +OXYC-737 PO; +OXYC-90 PO; +PHEN-876 PO; -PLV75 PO; +PROTEIN DRINK PO; +PSYL58.636 PO; +REPA1TAB5 PO; +SENN-61 PO; +SULF800T23 PO; +TAMS0.4C38 PO; -ULT50 PO
--- NOTE | 2017-08-29 11:12 | DIAGNOSTIC IMAGING REPORT ---
(CHEST) THORAX WITHOUT CLINICAL HISTORY: C67.9 Malignant neoplasm of bladder COMPARISON STUDY: Chest x-ray dated 12/13/2015 CT DOSE: 621.31 mGy.cm TECHNIQUE: CT of the thorax was performed from the thoracic inlet to the lung bases. Images are reviewed in the axial, sagittal, and coronal planes. IV contrast was not administered for this examination. A dose lowering technique was utilized adhering to the principles of ALARA. FINDINGS: Thyroid: Imaged portions of the thyroid gland are normal in appearance. Thoracic aorta: The thoracic aorta is normal in course and caliber, noting standard 3 vessel arch anatomy. Heart: There are coronary artery calcifications present Lungs and pleural spaces: No pleural effusions are visualized. There is no focal pulmonary consolidation. There is a 2 mm right middle lobe pulmonary nodule as visualized in image #208/[id number]. There is a calcified granuloma within the right upper lobe abutting the fissure measuring 7 mm as visualized in image #175/346. There is a 3 mm left apical pulmonary nodule as visualized in image #97/346. There is a 3 mm left upper lobe nodule as visualized in image #143/346. This a 3 mm left upper lobe pulmonary nodule as visualized in image #173/346. Mediastinum: There is no mediastinal lymphadenopathy. Halina: Clear. Axilla: Clear. Upper abdomen: There is a punctate upper pole left renal calculus. There is mild right-sided hydronephrosis. There is a partially visualized right-sided neck ureteral stent. Skeletal structures: There are no lytic or blastic osseous lesions. IMPRESSION: 1. No evidence of pathologic adenopathy 3. Scattered tiny subcentimeter pulmonary nodules. Given the history of a known primary malignancy, a 12 month follow-up CT scan should be considered. Electronically signed by: Cristian Gayle M.D. 08/29/2017 11:10 AM Dictated Date/Time: 08/29/2017 11:03 AM
== END | disposition home or self-care (01) ==
LOC: C.CTS 10:51
PROVIDERS: ATTEND Urology
DX: C67.9 Malignant neoplasm of bladder, unspecified (principal)

== ENCOUNTER → 2017-09-06 | Outpatient (CLI) | payer OTHER ==
[~2017-09-06] MED LIST changes: -CLC100 PO; -CPR500 PO; -DFL100 PO; -DRGTP75 TD; -ENOX30IN4 SQ; -HYDR-5688 PO; -LCTL45 PO; -LSN25 PO; -MISCCAP80 PO; -MRLP17X PO; -MTML PO; -MTR500 PO; -NITR-5 PO; -NRN300 PO; -NRN600 PO; -NUTR-7 PO; -OXYC-594 PO; -OXYC-737 PO; -OXYC-90 PO; +OXYC1TAB3 PO; -PROTEIN DRINK PO; -PSYL58.636 PO; -SENN-61 PO
--- NOTE | 2017-09-06 14:35 | DIAGNOSTIC IMAGING REPORT ---
BONE SCAN WHOLE BODY HISTORY: Bladder carcinoma C67.9 Malignant neoplasm of bladderNo latex [id number] RADIOTRACER: 27.3 mCi Tc-99m MDP STUDY/IMAGES: Planar anterior and posterior whole body imaging was performed 3 hours following the intravenous administration of radiotracer. COMPARISON: None. FINDINGS: Obstructive changes of the right kidney. Intense activity overlying the right kidney as compared to the left. Study is considered negative for metastatic bone disease. Mild scattered degenerative activity about the shoulders, sternomanubrial joints, as well as knees bilaterally. IMPRESSION: 1. Study is negative for metastatic bone disease. 2. High-grade obstructive changes right kidney The above report was generated using voice recognition software. It may contain grammatical, syntax or spelling errors. Electronically signed by: Wil Waldrop M.D. 09/06/2017 2:34 PM Dictated Date/Time: 09/06/2017 2:31 PM
== END | disposition home or self-care (01) ==
LOC: C.NUCL 09:54
PROVIDERS: ATTEND Urology
DX: C67.9 Malignant neoplasm of bladder, unspecified (principal)

== ENCOUNTER → 2017-09-06 | Outpatient (CLI) | payer OTHER ==
--- NOTE | 2017-09-06 11:33 | DIAGNOSTIC IMAGING REPORT ---
MRI OF THE PELVIS COMBO CLINICAL HISTORY: Bladder cancer. COMPARISON STUDY: Pelvic CT dated 08/22/2017. TECHNIQUE: MRI of the pelvis is performed utilizing various T1 and T2-weighted sequences in the axial, sagittal, and coronal planes. Contrast-enhanced images were acquired following the IV administration of 10 cc of Gadavist. The examination is degraded by motion artifact. FINDINGS: The bladder is decompressed around a Hernandez catheter and not well evaluated. The bladder wall is markedly thickened. This appears greatest posteriorly. There is pericystic stranding which significant compromises assessment for extension beyond the bladder wall. There is right-sided hydroureter. A right ureteral stent is in place. There is mild fullness of the left ureter. No pelvic adenopathy is identified. The bony pelvis appears intact. The visualized loops of small bowel and colon are normal in course and caliber. There is sigmoid diverticulosis without MRI evidence of acute diverticulitis. IMPRESSION: 1. The bladder is decompressed around a Hernandez catheter and not evaluated. 2. There is circumferential bladder wall thickening and hyperemia which appears greatest posteriorly. This is likely related to the reported history of bladder cancer. This could also be related to cystitis as there significant pericystic inflammatory stranding. Correlation with clinical findings and urinalysis will be required. 3. No pelvic adenopathy is identified. 4. There is right-sided hydroureter. A right ureteral stent is in place. Dictated: 09/06/2017 11:05 AM Transcribed: 09/06/2017 11:32 AM [email or web address] Electronically signed by: Tino Pandey M.D. 09/06/2017 12:01 PM Dictated Date/Time: 09/06/2017 11:05 AM
== END | disposition home or self-care (01) ==
LOC: C.MRI 09:52
PROVIDERS: ATTEND Internal Medicine Hematology & Oncology
DX: C67.2 Malignant neoplasm of lateral wall of bladder (principal); Z96.0 Presence of urogenital implants; N13.4 Hydroureter

== ENCOUNTER 2017-09-07 09:11 | Inpatient (IN) | payer OTHER ==
[~2017-09-07] VITALS: Ht 182.9 cm; Wt 106.5 kg
[2017-09-07] MEDS ORDERED: HYDROmorphone INJ 1 MG/ML SYR IV STA ×3 (09:33→12:27)
[2017-09-07] MEDS ORDERED: SODIUM CHLORIDE 0.9% 1000ML 1,000 ML IV ONE (09:33)
[2017-09-07] MEDS ORDERED: ONDANSETRON INJ 2 MG/ML 2 ML VIAL IV STA (09:33)
[2017-09-07] MEDS ORDERED: OXYC1TAB3 PO (09:43)
[2017-09-07] MEDS ORDERED: OPTIRAY 320 IV PRN (09:45)
[2017-09-07 10:11] LABS: BASO % 0.1 %; BASO ABS # 0.01 K/uL (0-0.2); EOS % 0.1 %; EOS ABS # 0.01 K/uL (0-0.5); HEMATOCRIT 38.8 % (42-52); HEMOGLOBIN 13.6 g/dL (14.0-18.0); IG# 0.08 K/uL (0.00-0.02); LYMPH % 1.3 %; MEAN CELL VOLUME 90.7 fL (80-100); MEAN CORPUSCULAR HEMOGLOBIN 31.8 pg (25-34); MEAN CORPUSCULAR HGB CONC 35.1 g/dl (32-36); MEAN PLATELET VOLUME 9.9 fL (7.4-10.4); MONO % 5.8 %; MONO ABS # 0.86 K/uL (0.11-0.59); NEUT % 92.2 %; NEUT ABS # 13.76 K/uL (1.4-6.5); PLATELET COUNT 165 K/uL (130-400); RED CELL DISTRIBUTION WIDTH CV 12.6 % (11.5-14.5); RED CELL DISTRIBUTION WIDTH SD 41.6 fL (36.4-46.3); WHITE BLOOD COUNT 14.92 K/uL (4.8-10.8)
[2017-09-07] MEDS ORDERED: ACETAMINOPHEN 500 MG TAB PO STA (10:11)
--- NOTE | 2017-09-07 10:11 | DIAGNOSTIC IMAGING REPORT ---
CHEST ONE VIEW PORTABLE CLINICAL HISTORY: Sepsis COMPARISON STUDY: 08/22/2017 FINDINGS: The cardiac and mediastinal contours remain stable. There is no overt failure. There are no pleural effusions. There is slight interstitial prominence, a finding likely accentuated by the AP portable technique..[ IMPRESSION: Slight interstitial prominence, a finding likely related to technical factors. No evidence of focal pulmonary consolidation. Electronically signed by: Cristian Gayle M.D. 09/07/2017 10:10 AM Dictated Date/Time: 09/07/2017 10:08 AM
[2017-09-07] MEDS ORDERED: VANCOMYCIN 1GM/270ML NSS IV STA (10:23)
[2017-09-07] MEDS ORDERED: CEFEPIME IV 2,000 MG in DEXTROSE 5% 100ML 100 ML IV STA (10:23)
[2017-09-07 10:25] LABS: INR 1.1 (0.9-1.1); PTT PATIENT 29.7 SECONDS (21.0-31.0)
[2017-09-07 10:28] LABS: ALBUMIN 3.6 gm/dl (3.4-5.0); ALT/SGPT 39 U/L (12-78); AST/SGOT 17 U/L (15-37); BLOOD UREA NITROGEN 14 mg/dl (7-18); CALCIUM 8.6 mg/dl (8.5-10.1); CARBON DIOXIDE 25 mmol/L (21-32); CREATININE 1.41 mg/dl (0.60-1.40); GLUCOSE 126 mg/dl (70-99); LIPASE 58 U/L (73-393); POTASSIUM 3.9 mmol/L (3.5-5.1); SODIUM 130 mmol/L (136-145)
[2017-09-07 10:34] LABS: ALKALINE PHOSPHATASE 87 U/L (45-117); CKMB < 0.5 ng/ml (0.5-3.6); TOTAL PROTEIN 7.6 gm/dl (6.4-8.2)
[2017-09-07 10:54] LABS: INFLUENZA B ANTIGEN Neg for Influ B (NEG)
--- NOTE | 2017-09-07 11:02 | EMERGENCY ROOM VISIT NOTE ---
History First contact with patient: 09:25 Chief Complaint: OTHER COMPLAINT Stated Complaint: CANCER PT, BLADDER HURTING REALLY BAD AND CHILLS History of Present Illness The patient is a 62 year old male who presents to the Emergency Room with complaints of bladder and epigastric pain as well as chills. The patient reports he had a PET scan yesterday as well as an MRI of his pelvis. He is to receive an echocardiogram here today however the patient had a terrible night last night and is been complaining of epigastric pain as well as bladder pain. In addition the patient is complaining of chills. He took oxycodone last night with no improvement in his pain. He is requesting multiple warm blankets. Review of Systems See HPI for pertinent positives & negatives. A total of 10 systems reviewed and were otherwise negative. Past Medical/Surgical History Medical Problems: (1) Bladder pain (2) Chronic back pain (3) Diabetes mellitus (4) Dyslipidemia (5) UTI (urinary tract infection) Family History Cancer Diabetes mellitus Social History Smoking Status: Former Smoker Drug Use: none Marital Status: Housing Status: lives with significant other Occupation Status: retired Current/Historical Medications Scheduled Aspirin (Aspirin Ec), 81 MG PO QAM Atorvastatin (Lipitor), 80 MG PO QPM Citalopram Hydrobromide (Citalopram Hydrobromide), 10 MG PO DAILY Gabapentin (Neurontin), 300 MG PO TID Glimepiride (Glimepiride), 8 MG PO DAILY Lisinopril (Zestril), 5 MG PO QAM Metformin Hcl (Glucophage Er), 750 MG PO BID Metoprolol Tartrate (Lopressor) (Lopressor), 25 MG PO Q12 Repaglinide (Prandin), 0.5 MG PO QAM Sitagliptin (Januvia), 100 MG PO QAM Tamsulosin Hcl (Flomax), 0.4 MG PO DAILY Scheduled PRN Albuterol Sulfate (Proair Respiclick), 2 PUFFS INH UD PRN for SOB/Wheezing Docusate Sodium (Colace), 100 MG PO BID PRN for Constipation Ondansetron Odt (Zofran Odt), 4 MG SL Q8 PRN for Nausea Oxybutynin Chloride (Ditropan), 5 MG PO TID PRN for Bladder pain Oxycodone Ir (Roxicodone Ir), 5-10 MG PO Q4H PRN for Severe Pain Phenazopyridine HCl (Pyridium), 200 MG PO TID PRN for Bladder pain Physical Exam Vital Signs Date Time Temp Pulse Resp B/P (MAP) Pulse Ox O2 Delivery O2 Flow Rate FiO2 09/07/17 13:12 37.9 09/07/17 13:04 37.9 84 20 105/53 100 09/07/17 13:00 100 Nasal Cannula 2.0 09/07/17 12:31 89 20 113/65 95 Nasal Cannula 09/07/17 11:05 99 20 127/67 97 Nasal Cannula 2.0 09/07/17 10:17 95 Nasal Cannula 3.0 09/07/17 10:12 96 Room Air 09/07/17 10:12 89 16 155/79 93 Room Air 09/07/17 09:54 82 09/07/17 09:22 37.3 91 20 130/64 97 Room Air Physical Exam GENERAL: Patient is a healthy-appearing well-nourished male in mild distress, rigors present HEAD: Normocephalic atraumatic EYES: Ocular movements intact pupils equal and react to light OROPHARYNX mucous membranes are moist no exudates present no erythema or edema present NECK: Supple no nuchal rigidity CHEST: Good equal expansion LUNGS: Clear and equal to auscultation CARDIAC: Normal S1 and S2 ABDOMEN: Soft nontender no guarding BACK: No CVA tenderness EXTREMITIES: No pain upon palpation normal muscle strength in all groups no clubbing cyanosis or edema NEURO: Patient is following commands is answering questions appropriately. Alert and oriented x3 Cranial Nerves 2-12 grossly intact Medical Decision & Procedures ER Provider Diagnostic Interpretation: CHEST ONE VIEW PORTABLE CLINICAL HISTORY: Sepsis COMPARISON STUDY: 08/22/2017 FINDINGS: The cardiac and mediastinal contours remain stable. There is no overt failure. There are no pleural effusions. There is slight interstitial prominence, a finding likely accentuated by the AP portable technique..[ IMPRESSION: Slight interstitial prominence, a finding likely related to technical factors. No evidence of focal pulmonary consolidation. Electronically signed by: Cristian Gayle M.D. 09/07/2017 10:10 AM Dictated Date/Time: 09/07/2017 10:08 AM Laboratory Results Test 09/07/17 09:50 09/07/17 09:57 09/07/17 10:01 09/07/17 11:15 Immature Granulocyte % (Auto) 0.5 % White Blood Count 14.92 K/uL (4.8-10.8) Red Blood Count 4.28 M/uL (4.7-6.1) Hemoglobin 13.6 g/dL (14.0-18.0) Hematocrit 38.8 % (42-52) Mean Corpuscular Volume 90.7 fL (80-100) Mean Corpuscular Hemoglobin 31.8 pg (25-34) Mean Corpuscular Hemoglobin Concent 35.1 g/dl (32-36) Platelet Count 165 K/uL (130-400) Mean Platelet Volume 9.9 fL (7.4-10.4) Neutrophils (%) (Auto) 92.2 % Lymphocytes (%) (Auto) 1.3 % Monocytes (%) (Auto) 5.8 % Eosinophils (%) (Auto) 0.1 % Basophils (%) (Auto) 0.1 % Neutrophils # (Auto) 13.76 K/uL (1.4-6.5) Lymphocytes # (Auto) 0.20 K/uL (1.2-3.4) Monocytes # (Auto) 0.86 K/uL (0.11-0.59) Eosinophils # (Auto) 0.01 K/uL (0-0.5) Basophils # (Auto) 0.01 K/uL (0-0.2) Immature Granulocyte # (Auto) 0.08 K/uL (0.00-0.02) Prothrombin Time 11.2 SECONDS (9.0-12.0) Prothromb Time International Ratio 1.1 (0.9-1.1) Activated Partial Thromboplast Time 29.7 SECONDS (21.0-31.0) Partial Thromboplastin Ratio 1.1 Total Bilirubin 0.7 mg/dl (0.2-1) Aspartate Amino Transf (AST/SGOT) 17 U/L (15-37) Alanine Aminotransferase (ALT/SGPT) 39 U/L (12-78) Alkaline Phosphatase 87 U/L (45-117) Total Creatine Kinase 60 U/L (39-308) Creatine Kinase MB < 0.5 ng/ml (0.5-3.6) Creatine Kinase MB Ratio (0-3.0) Troponin I < 0.015 ng/ml (0-0.045) Total Protein 7.6 gm/dl (6.4-8.2) Albumin 3.6 gm/dl (3.4-5.0) Globulin 4.0 gm/dl (2.5-4.0) Albumin/Globulin Ratio 0.9 (0.9-2) Amylase Level 31 U/L (25-115) Lipase 58 U/L (73-393) Procalcitonin 1.12 ng/ml (0-0.5) Influenza Type A Antigen Neg for Influ A (NEG) Influenza Type B Antigen Neg for Influ B (NEG) Bedside Lactic Acid Venous 0.95 mmol/L (0.90-1.70) Bedside Hemoglobin 13.3 g/dl (14.0-18.0) Bedside Hematocrit 39 % (42-52) Bedside Sodium 133 mEq/L (135-144) Bedside Potassium 3.8 mEq/L (3.3-5.0) Bedside Chloride 95 mEq/L (101-112) Bedside Total CO2 24 mEq/l (24-31) Bedside Blood Urea Nitrogen 15 mg/dl (7-18) Bedside Creatinine 1.5 mg/dl (0.6-1.3) Bedside Glucose (other) 128 mg/dl (70-99) Bedside Ionized Calcium (Vishnu) 1.08 mmol/l (1.12-1.32) Urine Color YELLOW Urine Appearance CLOUDY (CLEAR) Urine pH 5.0 (4.5-7.5) Urine Specific [place] 1.036 (1.000-1.030) Urine Protein 1+ (NEG) Urine Glucose (UA) NEG (NEG) Urine Ketones 1+ (NEG) Urine Occult Blood 3+ (NEG) Urine Nitrite POS (NEG) Urine Bilirubin NEG (NEG) Urine Urobilinogen NEG (NEG) Urine Leukocyte Esterase LARGE (NEG) Urine WBC (Auto) >30 /hpf (0-5) Urine RBC (Auto) >30 /hpf (0-4) Urine Hyaline Casts (Auto) 1-5 /lpf (0-5) Urine Epithelial Cells (Auto) 5-10 /lpf (0-5) Urine Bacteria (Auto) 2+ (NEG) Urine Yeast (Auto) (NONE PRSENT) Medications Administered Medications (Trade) Dose Ordered Sig/Young Route Start Time Stop Time Status Last Admin Dose Admin Sodium Chloride 1,000 ml @ 999 mls/hr Q1H1M ONCE IV 09/07/17 09:33 09/07/17 10:42 DC 09/07/17 10:08 999 MLS/HR Hydromorphone HCl (Dilaudid Inj) 1 mg NOW STAT IV 09/07/17 09:33 09/07/17 09:35 DC 09/07/17 10:09 1 MG Ondansetron HCl (Zofran Inj) 4 mg NOW STAT IV 09/07/17 09:33 09/07/17 09:35 DC 09/07/17 10:09 4 MG Acetaminophen (Tylenol Tab) 1,000 mg NOW STAT PO 09/07/17 10:11 09/07/17 10:12 DC 09/07/17 10:36 1,000 MG Cefepime HCl 2000 mg/Dextrose 122 ml @ 200 mls/hr NOW STAT IV 09/07/17 10:23 09/07/17 10:59 DC 09/07/17 11:03 200 MLS/HR Vancomycin HCl (Vancomycin 1gm/ 270ml Nss) 1 gm NOW STAT IV 09/07/17 10:23 09/07/17 10:25 DC 09/07/17 10:36 1 GM Hydromorphone HCl (Dilaudid Inj) 1 mg NOW STAT IV 09/07/17 11:13 09/07/17 11:14 DC 09/07/17 11:22 1 MG Metoclopramide HCl (Reglan Inj) 10 mg NOW STAT IV 09/07/17 11:13 09/07/17 11:14 DC 09/07/17 11:22 10 MG Sodium Chloride 1,000 ml @ 999 mls/hr Q1H1M STAT IV 09/07/17 12:17 09/07/17 13:17 DC 09/07/17 12:29 999 MLS/HR Sodium Chloride 1,000 ml @ 999 mls/hr Q1H1M STAT IV 09/07/17 12:22 09/07/17 13:22 DC 09/07/17 12:29 999 MLS/HR Clindamycin Phosphate 600 mg/ Dextrose 54 ml @ 108 mls/hr 1230 IV 09/07/17 12:30 09/07/17 12:59 DC 09/07/17 12:37 108 MLS/HR Hydromorphone HCl (Dilaudid Inj) 1 mg NOW STAT IV 09/07/17 12:27 09/07/17 12:28 DC 09/07/17 12:32 1 MG Oxycodone HCl (Roxicodone Immediate Rel Tab) 10 mg Q4H PRN PO 09/07/17 12:30 09/21/17 12:29 09/08/17 05:57 10 MG Hydromorphone HCl (Dilaudid Inj) 1 mg Q3H PRN IV 09/07/17 12:30 09/21/17 12:29 09/08/17 04:51 1 MG Acetaminophen (Tylenol Tab) 650 mg Q6H PRN PO 09/07/17 12:30 10/07/17 12:29 09/08/17 01:32 650 MG Sodium Chloride 1,000 ml @ 150 mls/hr Q6H40M IV 09/07/17 13:15 09/08/17 02:34 DC 09/07/17 23:07 150 MLS/HR Medical Decision This is a 62-year-old male who presents emergency department complaining of rigors. An IV was established, the patient does have an elevation in his white blood count cell count. Due to the nature the patient's pain he was sent for CAT scan of the abdomen and pelvis. This was concerning for pyelonephritis. Due to the stent being in place urology was immediately consulted. The patient was given multiple doses of Dilaudid in the emergency department along with cefepime and clindamycin and vancomycin. I did discuss the case with both the hospitalist as well as the hospital liaison. The patient was taken to the operating room. Impression Primary Impression: UTI (urinary tract infection) Critical Care I have personally spent greater than 30 minutes of critical care time in the direct management of this patient. This includes bedside care, interpretation of diagnostic studies, and testing, discussion with consultants, patient, and family members, and other required patient management activities. This 30 minutes is in excess of all separately billable procedures. Departure Information Dispostion Still a Patient Referrals Vasyl Westbrook D.O. (PCP) Patient Instructions [facility] Problem Qualifiers Primary Impression: UTI (urinary tract infection) Urinary tract infection type: acute cystitis Hematuria presence: without hematuria Qualified Codes: N30.00 - Acute cystitis without hematuria
[2017-09-07] MEDS ORDERED: METOCLOPRAMIDE HCL INJ 5 MG/ML 2 ML VIAL IV STA (11:13)
--- NOTE | 2017-09-07 11:14 | DIAGNOSTIC IMAGING REPORT ---
CT ABD/PELVIS IV CONTRAST ONLY CLINICAL HISTORY: Diffuse abdominal pain HISTORY OF BLADDER TUMOR COMPARISON STUDY: 08/22/2017 TECHNIQUE: Following the IV administration of k mL of Optiray-320, CT scan of the abdomen and pelvis was performed from the lung bases to the proximal femurs. Images are reviewed in the axial, sagittal, and coronal planes. IV contrast was administered without complication. A dose lowering technique was utilized adhering to the principles of ALARA. CT DOSE: 934.65 mGy.cm FINDINGS: Lower chest: There are bibasal atelectatic changes. Liver: The contrast-enhanced liver is normal in size, contour, and attenuation. There is no intrahepatic biliary ductal dilatation. The hepatic veins and portal veins are patent. Gallbladder: Unremarkable. Spleen: The spleen is enlarged measuring 15.9 cm. This remains unchanged the prior study. Pancreas: Unremarkable. Adrenal glands: Unremarkable. Kidneys: There are bilateral hypodense renal lesions ranging in size from 4 mm to 16 mm. These likely represent cysts. There is a diminished right-sided nephrogram. There is right-sided hydronephrosis and hydroureter. There is right-sided perinephric stranding. There is a right-sided nephroureteral stent. Bowel: There are no transition zones indicate bowel obstruction. There is colonic diverticulosis. There are no acute peridiverticular inflammatory changes. The appendix appears normal. Peritoneum: There is no intraperitoneal free air or abdominal ascites. Vasculature: The abdominal aorta is normal in course and caliber. Adenopathy: There is no evidence of pathologic adenopathy by size criteria. Pelvic viscera: There is a joint fluid catheter. There is right lateral bladder wall thickening, likely secondary to the patient's known bladder mass. Skeletal structures: No destructive osseous lesions are seen. IMPRESSION: 1. No evidence of bowel obstruction. No evidence of free air 2. Diverticulosis. No evidence of acute diverticulitis 3. Normal appendix 4. Worsening right-sided hydronephrosis and hydroureter with a diminished right-sided nephrogram and right-sided periureteral stranding. This may indicate right-sided obstruction, despite the presence of an indwelling right-sided nephroureteral stent 5. Bladder wall thickening, similar to the prior study Electronically signed by: Cristian Gayle M.D. 09/07/2017 11:12 AM Dictated Date/Time: 09/07/2017 11:07 AM
[2017-09-07] MEDS ORDERED: CLINDAMYCIN 600 MG/54 ML D5W IV STA (12:16)
[2017-09-07] MEDS ORDERED: SODIUM CHLORIDE 0.9% 1000ML 1,000 ML IV STA ×2 (12:17→12:22)
[2017-09-07] MEDS ORDERED: FAMOTIDINE 20 MG TAB PO PRN (12:30)
[2017-09-07] MEDS ORDERED: CLINDAMYCIN IV 600 MG in DEXTROSE 5% 50ML 50 ML IV SCH (12:30)
[2017-09-07] MEDS ORDERED: ALBUTEROL HFA 8 GM INHALER INH PRN (12:30)
[2017-09-07] MEDS ORDERED: POLYETHYLENE (MIRALAX) 17 GM PACK PO PRN (12:30)
[2017-09-07] MEDS ORDERED: ONDANSETRON INJ 2 MG/ML 2 ML VIAL IV. PRN (12:30)
[2017-09-07 13:00] VITALS: O2SAT 100; BMI 30.2
[2017-09-07] MEDS ORDERED: CONRAY 30% 150ML BOTTLE ONE (13:00)
[2017-09-07] MEDS ORDERED: PROPOFOL IV EMULSION 10 MG/ML 20 ML VIAL IV ONE ×2 (13:01→14:06)
[2017-09-07] MEDS ORDERED: LIDOCAINE HCL 2% 2 ML VIAL (20MG/ML) ONE (13:01)
[2017-09-07] MEDS ORDERED: MIDAZOLAM HCL 1 MG/ML 2ML VIAL ONE (13:01)
[2017-09-07] MEDS ORDERED: SUCCINYLCHOLINE CHLORIDE 20 MG/ML 10 ML VIAL IV ONE (13:01)
[2017-09-07] MEDS ORDERED: FENTANYL CITRATE INJ 50 MCG/1 ML 2 ML VIAL ONE ×2 (13:01→14:16)
--- NOTE | 2017-09-07 13:01 | History and Physical ---
History & Physical Date & Time of Service: Sep 07, 2017 at 12:33 Chief Complaint: Cancer Pt, Bladder Hurting Really Bad And Chills Primary Care Physician: Vasyl Westbrook D.O. History of Present Illness Source: patient 62 y/o M Hx DM II, CAD, urothelial bladder CA - recent resection and R ureteral stent. Pt with chronic Hernandez. Presents with severe bladder pain, dysuria and rigors. He denies CP, SOB, N/V. A CT abdomen/pelvis obtained in the ER reveals worsening R hydroureteronephrosis with perinephric stranding, suspicious for reobstruction vs pyelonephritis or combination of both. Initial labs are notable for a + UA, leukocytosis, hyponatremia and SANTHOSH. 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 Smoking Status: Former Smoker Drug Use: none Marital Status: Occupational Status: retired Multi-Drug Resistant Organisms History of MDRO: No Allergies Coded Allergies: No Known Allergies (Unverified , 09/07/17) Home Medications Scheduled Aspirin (Aspirin Ec), 81 MG PO QAM Atorvastatin (Lipitor), 80 MG PO QPM Citalopram Hydrobromide (Citalopram Hydrobromide), 10 MG PO DAILY Gabapentin (Neurontin), 300 MG PO TID Glimepiride (Glimepiride), 8 MG PO DAILY Lisinopril (Zestril), 5 MG PO QAM Metformin Hcl (Glucophage Er), 750 MG PO BID Metoprolol Tartrate (Lopressor) (Lopressor), 25 MG PO Q12 Repaglinide (Prandin), 0.5 MG PO QAM Sitagliptin (Januvia), 100 MG PO QAM Tamsulosin Hcl (Flomax), 0.4 MG PO DAILY Scheduled PRN Albuterol Sulfate (Proair Respiclick), 2 PUFFS INH UD PRN for SOB/Wheezing Docusate Sodium (Colace), 100 MG PO BID PRN for Constipation Ondansetron Odt (Zofran Odt), 4 MG SL Q8 PRN for Nausea Oxybutynin Chloride (Ditropan), 5 MG PO TID PRN for Bladder pain Oxycodone Ir (Roxicodone Ir), 5-10 MG PO Q4H PRN for Severe Pain Phenazopyridine HCl (Pyridium), 200 MG PO TID PRN for Bladder pain Review of Systems Constitutional: + fever, + chills, + sweats, + weakness Eyes: No worsening of vision ENT: No hearing loss, No unusual epistaxis, No nasal symptoms Respiratory: No cough, No sputum, No wheezing Cardiovascular: No chest pain, No orthopnea, No PND Abdomen: + pain (suprapubic pain - R flank pain) Genitourinary - Male: + hematuria (occassional judy hematuria), + dysuria Neurologic: + weakness, No memory loss, No paralysis Psychiatric: No depression symptoms, No anhedonism Endocrine: + fatigue, No excessive thirst Hematologic / Lymphatic: No abnormal bleeding/bruising Integumentary: No rash Allergic / Immunologic: No environmental allergies Physical Exam Vital Signs Date Time Temp Pulse Resp B/P (MAP) Pulse Ox O2 Delivery O2 Flow Rate FiO2 09/07/17 11:05 99 20 127/67 97 Nasal Cannula 2.0 09/07/17 10:17 95 Nasal Cannula 3.0 09/07/17 10:12 96 Room Air 09/07/17 10:12 89 16 155/79 93 Room Air 09/07/17 09:54 82 09/07/17 09:22 37.3 91 20 130/64 97 Room Air General Appearance: WD/WN, no apparent distress Head: normocephalic Eyes: normal inspection ENT: normal ENT inspection, pharynx normal Neck: supple, no JVD Respiratory/Chest: chest non-tender, lungs clear Cardiovascular: regular rate, rhythm, no edema, no gallop Abdomen/GI: normal bowel sounds, + pertinent finding (Lower abdominal/ suprapubic - R flank pain to palpation - no guarding) Back: + right CVA tenderness Extremities/Musculoskelatal: normal inspection, no calf tenderness, normal capillary refill Neurologic/Psych: 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 associate II-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 nml as tested, no motor/sensory deficits, oriented x 3 Skin: normal color, warm/dry Diagnostics Laboratory Results Results Past 24 Hours Test 09/07/17 09:50 09/07/17 11:15 Range/Units White Blood Count 14.92 4.8-10.8 K/uL Red Blood Count 4.28 4.7-6.1 M/uL Hemoglobin 13.6 14.0-18.0 g/dL Hematocrit 38.8 42-52 % Mean Corpuscular Volume 90.7 80-100 fL Mean Corpuscular Hemoglobin 31.8 25-34 pg Mean Corpuscular Hemoglobin Concent 35.1 32-36 g/dl Platelet Count 165 130-400 K/uL Mean Platelet Volume 9.9 7.4-10.4 fL Neutrophils (%) (Auto) 92.2 % Lymphocytes (%) (Auto) 1.3 % Monocytes (%) (Auto) 5.8 % Eosinophils (%) (Auto) 0.1 % Basophils (%) (Auto) 0.1 % Neutrophils # (Auto) 13.76 1.4-6.5 K/uL Lymphocytes # (Auto) 0.20 1.2-3.4 K/uL Monocytes # (Auto) 0.86 0.11-0.59 K/uL Eosinophils # (Auto) 0.01 0-0.5 K/uL Basophils # (Auto) 0.01 0-0.2 K/uL RDW Standard Deviation 41.6 36.4-46.3 fL RDW Coefficient of Variation 12.6 11.5-14.5 % Immature Granulocyte % (Auto) 0.5 % Immature Granulocyte # (Auto) 0.08 0.00-0.02 K/uL Prothrombin Time 11.2 9.0-12.0 SECONDS Prothromb Time International Ratio 1.1 0.9-1.1 Activated Partial Thromboplast Time 29.7 21.0-31.0 SECONDS Partial Thromboplastin Ratio 1.1 Sodium Level 130 136-145 mmol/L Potassium Level 3.9 3.5-5.1 mmol/L Chloride Level 98 98-107 mmol/L Carbon Dioxide Level 25 21-32 mmol/L Anion Gap 7.0 3-11 mmol/L Blood Urea Nitrogen 14 7-18 mg/dl Creatinine 1.41 0.60-1.40 mg/dl Est Creatinine Clear Calc Drug Dose 66.0 ml/min Estimated GFR () 61.0 Estimated GFR (Non- 52.6 BUN/Creatinine Ratio 10.1 10-20 Random Glucose 126 70-99 mg/dl Calcium Level 8.6 8.5-10.1 mg/dl Total Bilirubin 0.7 0.2-1 mg/dl Aspartate Amino Transf (AST/SGOT) 17 15-37 U/L Alanine Aminotransferase (ALT/SGPT) 39 12-78 U/L Alkaline Phosphatase 87 45-117 U/L Total Creatine Kinase 60 39-308 U/L Creatine Kinase MB < 0.5 0.5-3.6 ng/ml Creatine Kinase MB Ratio 0-3.0 Troponin I < 0.015 0-0.045 ng/ml Total Protein 7.6 6.4-8.2 gm/dl Albumin 3.6 3.4-5.0 gm/dl Globulin 4.0 2.5-4.0 gm/dl Albumin/Globulin Ratio 0.9 0.9-2 Amylase Level 31 25-115 U/L Lipase 58 73-393 U/L Procalcitonin 1.12 0-0.5 ng/ml Influenza Type A Antigen Neg for Influ A NEG Influenza Type B Antigen Neg for Influ B NEG Urine Color YELLOW Urine Appearance CLOUDY CLEAR Urine pH 5.0 4.5-7.5 Urine Specific [place] 1.036 1.000-1.030 Urine Protein 1+ NEG Urine Glucose (UA) NEG NEG Urine Ketones 1+ NEG Urine Occult Blood 3+ NEG Urine Nitrite POS NEG Urine Bilirubin NEG NEG Urine Urobilinogen NEG NEG Urine Leukocyte Esterase LARGE NEG Urine WBC (Auto) >30 0-5 /hpf Urine RBC (Auto) >30 0-4 /hpf Urine Hyaline Casts (Auto) 1-5 0-5 /lpf Urine Epithelial Cells (Auto) 5-10 0-5 /lpf Urine Bacteria (Auto) 2+ NEG Urine Yeast (Auto) NONE PRSENT Microbiology Results 09/07/17 Blood Culture, Received Pending 09/07/17 Blood Culture, Received Pending 09/07/17 Urine Culture, Received Pending Impression Assessment and Plan 62 y/o M Hx DM II, CAD, urothelial bladder CA - recent resection and R ureteral stent. Pt with chronic Hernandez. Presents with severe bladder pain, dysuria and rigors. He denies CP, SOB, N/V. A CT abdomen/pelvis obtained in the ER reveals worsening R hydroureteronephrosis with perinephric stranding, suspicious for reobstruction vs pyelonephritis or combination of both. Initial labs are notable for a + UA, leukocytosis, hyponatremia and SANTHOSH. 1) UTI - likely pyelo and possible reobstruction. The case was discussed with urology and the pt will likely proceed to the OR today for possible stent replacement. We have placed him on broad spectrum coverage pending culture results due to recent invasive procedures, anatomical compromise and sepsis. 2) SANTHOSH - IVF provided - will trend BMP - suspect combination of dehydration and R renal injury 3) Hyponatremia - hypovolemic - cont IVF 4) DM II - placed on Q6H SS 5) CAD - no evidence of ACS - cont ASA, statin, Bblocker Full code - SCDs due to hematuria Total time for this admit including review of labs, meds, imaging - discussion with pt and ER attending - 38 min VTE Prophylaxis VTE Risk Assessment Done? Y/N: Yes Risk Level: Moderate
[2017-09-07 13:09] LABS: ISTAT CREATININE 1.5 mg/dl (0.6-1.3); ISTAT IONIZED CALCIUM 1.08 mmol/l (1.12-1.32); ISTAT POTASSIUM 3.8 mEq/L (3.3-5.0)
--- NOTE | 2017-09-07 13:35 | Urology Consultation ---
History General Date of Service: Sep 07, 2017. Chief Complaint: Right obstruction Primary Care Physician: Vasyl Westbrook D.O. Pt seen a urologist before?: Yes History of Present Illness Patient developed illness with sweating fevers and chills. Pain in right radiating to the groin in waves with no relief. History of Bladder cancer with obst of right kidney and stent. Multiple issues. Patient meets SIRS criteria due to tachycardia and white count. Imaging Imaging: CT Laboratory Labs were reviewed and are within normal limits unless listed below. Labs are available in the chart and at [facility] Problem List Medical Problems: (1) Bladder neoplasm Status: Acute (2) Constipation Status: Acute (3) Intractable abdominal pain Status: Acute (4) UTI (urinary tract infection) Status: Acute Past History arrhythmia, coronary artery disease Past Surgical History: ureteral stent Family History Cancer Diabetes mellitus Social History Hx Tobacco Use In Past Year?: No (smoked for 30 plus years) Marital status: Occupation status: retired History of MDRO No Allergies Coded Allergies: No Known Allergies (Unverified , 09/07/17) Medications Home Medications: Home Meds and Scripts Medications Dose Route/Sig Max Daily Dose Days Date Category Roxicodone Ir (Oxycodone HCl) 5 Mg Tab 5-10 Mg PO Q4H PRN 09/07/17 Reported Flomax (Tamsulosin Hcl) 0.4 Mg Cap 0.4 Mg PO DAILY 30 08/31/17 Reported Citalopram Hydrobromide 10 Mg Tab 10 Mg PO DAILY 30 08/31/17 Reported Ditropan (Oxybutynin Chloride) 5 Mg Tab 5 Mg PO TID PRN 30 08/31/17 Reported Colace (Docusate Sodium) 100 Mg Cap 100 Mg PO BID PRN 15 08/31/17 Reported Pyridium (Phenazopyridine HCl) 200 Mg Tab 200 Mg PO TID PRN 08/31/17 Reported Zofran Odt (Ondansetron HCl) 8 Mg Soltab 4 Mg SL Q8 PRN 08/31/17 Reported Neurontin (Gabapentin) 300 Mg Cap 300 Mg PO TID 08/29/17 Reported Aspirin Ec (Aspirin) 81 Mg Tab 81 Mg PO QAM 08/22/17 Reported Lipitor (Atorvastatin Calcium) 80 Mg Tab 80 Mg PO QPM 08/22/17 Reported Lopressor (Metoprolol Tartrate) 25 Mg Tab 25 Mg PO Q12 08/22/17 Reported Zestril (Lisinopril) 5 Mg Tab 5 Mg PO QAM 08/22/17 Reported Glimepiride 4 Mg Tab 8 Mg PO DAILY 08/22/17 Reported Proair Respiclick (Albuterol Sulfate) 108 Mcg/Act Aer 2 Puffs INH UD PRN 08/22/17 Reported Prandin (Repaglinide) 0.5 Mg Tab 0.5 Mg PO QAM 08/07/17 Reported Januvia (Sitagliptin) 100 Mg Tab 100 Mg PO QAM 08/07/17 Reported Glucophage Er (Metformin Hcl) 750 Mg Tab 750 Mg PO BID 12/13/15 Reported Inpatient Medications: Current Inpatient Medications Medications (Trade) Dose Ordered Sig/Young Route Start Time Stop Time Status Last Admin Dose Admin Ioversol (Optiray 320) 125 ml UD PRN IV 09/07/17 09:45 09/11/17 09:44 Aspirin (Ecotrin Tab) 81 mg QAM PO 09/08/17 09:00 10/08/17 08:59 UNV Atorvastatin Calcium (Lipitor Tab) 80 mg QPM PO 09/07/17 21:00 10/07/17 20:59 UNV Docusate Sodium (coLACE CAP) 100 mg BID PRN PO 09/07/17 12:30 10/07/17 12:29 UNV Gabapentin (Neurontin Cap) 300 mg TID PO 09/07/17 14:00 10/07/17 13:59 UNV Lisinopril (Zestril Tab) 5 mg QAM PO 09/08/17 09:00 10/08/17 08:59 UNV Metoprolol Tartrate (Lopressor Tab) 25 mg Q12 PO 09/07/17 21:00 10/07/17 20:59 UNV Oxybutynin Chloride (Ditropan Tab) 5 mg TID PRN PO 09/07/17 12:30 10/07/17 12:29 UNV Oxycodone HCl (Roxicodone Immediate Rel Tab) 10 mg Q4H PRN PO 09/07/17 12:30 09/21/17 12:29 UNV Phenazopyridine HCl (Pyridium Tab) 200 mg TID PRN PO 09/07/17 12:30 10/07/17 12:29 UNV Tamsulosin HCl (Flomax Cap) 0.4 mg DAILY PO 09/08/17 09:00 10/08/17 08:59 UNV Non-Formulary Medication (Albuterol Sulfate (Proair Respiclick)) 2 puffs UD PRN INH 09/07/17 12:30 10/07/17 12:29 UNV Non-Formulary Medication (Citalopram Hydrobromide ) 10 mg DAILY PO 09/08/17 09:00 10/08/17 08:59 UNV Ondansetron HCl (Zofran Inj) 4 mg Q6H PRN IV. 09/07/17 12:30 10/07/17 12:29 UNV Docusate Sodium (coLACE CAP) 100 mg BID PO 09/07/17 21:00 10/07/17 20:59 UNV Polyethylene (Miralax Powder Packet) 17 gm DAILY PRN PO 09/07/17 12:30 10/07/17 12:29 UNV Famotidine (Pepcid Tab) 20 mg BID PRN PO 09/07/17 12:30 10/07/17 12:29 UNV Hydromorphone HCl (Dilaudid Inj) 1 mg Q3H PRN IV 09/07/17 12:30 09/21/17 12:29 UNV Acetaminophen (Tylenol Tab) 650 mg Q6H PRN PO 09/07/17 12:30 10/07/17 12:29 UNV Cefepime HCl 1000 mg/Dextrose 111 ml @ 200 mls/hr Q8H IV 09/07/17 12:30 09/17/17 12:29 UNV Sodium Chloride 1,000 ml @ 150 mls/hr Q6H40M IV 09/07/17 13:15 10/07/17 13:14 UNV Insulin Aspart (novoLOG ASPART) SLIDING SCALE G... Q6H SC 09/07/17 13:15 10/07/17 13:14 UNV Review of Systems Review of Systems All Other Systems: Reviewed and Negative Additional Comments: All reviewed pertinent postitives and negatives in HPI. Positive for fever, chills, nausea, and ill feelings. Physical Exam Vital Signs: Vital Signs Past 12 Hours Date Time Temp Pulse Resp B/P (MAP) Pulse Ox O2 Delivery O2 Flow Rate FiO2 09/07/17 13:12 37.9 09/07/17 13:04 37.9 84 20 105/53 100 09/07/17 12:31 89 20 113/65 95 Nasal Cannula 09/07/17 11:05 99 20 127/67 97 Nasal Cannula 2.0 09/07/17 10:17 95 Nasal Cannula 3.0 09/07/17 10:12 96 Room Air 09/07/17 10:12 89 16 155/79 93 Room Air 09/07/17 09:54 82 09/07/17 09:22 37.3 91 20 130/64 97 Room Air Physical Exam: General Appearance: WD/WN, + mild distress Eyes: bilateral eyes normal inspection ENT: normal ENT inspection, hearing grossly normal Neck: supple, no JVD Respiratory/Chest: chest non-tender, no respiratory distress Cardiovascular: regular rate, rhythm Gastrointestinal: Abdomen: normal abdomen Genitourinary - Male: Penis: normal penis Extremities: normal range of motion, no pedal edema, no calf tenderness 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 Likely urinary source. 2 Bladder Cancer 3 Obstruction right kidney Plan to urgently take to OR for cystoscopy and right stent exchange with pyelogram and possible aspiration. Will need critical or close monitoring for development of sepsis. Will follow closely. Agree with broad spectrum antibioitcs. Risks and benefits discussed.
[2017-09-07] MEDS ORDERED: EpHEDrine SULFATE INJ 50 MG/ML AMP IV PRN (13:45)
[2017-09-07] MEDS ORDERED: ONDANSETRON INJ 2 MG/ML 2 ML VIAL IV PRN (13:45)
[2017-09-07] MEDS ORDERED: ATROPINE SULFATE 0.1 MG/ML 5ML SYR IV PRN (13:45)
[2017-09-07] MEDS ORDERED: PROMETHAZINE HCL INJ 6.25 MG in SODIUM CHLORIDE 0.9% 50ML 50 ML IV PRN (13:45)
[2017-09-07] MEDS ORDERED: ONDANSETRON INJ 2 MG/ML 2 ML VIAL ONE (14:07)
--- NOTE | 2017-09-07 14:12 | [facility] Operative Report ---
Operative Report Operative Date Sep 07, 2017. 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 Acute cystitis. Specimens Urine right kidney for culture. Drains 6x28 Right Stent. 18 Fr Hernandez Anesthesia General Complication(s) None Disposition Recovery Room / PACU Indications Obstruction secondary to malignancy with signs of acute pyelonephritis. Urgent stent exchange. Description of Procedure Patient was consented and brought back to the operating room. Patient was placed under anesthesia in the supine position and moved to the dorsal lithotomy position. Patient was prepped and draped in the regular sterile fashion. A time out was completed. A 30degree Cystoscope was placed into the bladder and the entire bladder was examined. Patient has residual tumor from previous resection with healing resection bed. The UO's were identified. The right stent was grasped and partially removed. A wire was then placed. The Right was cannulized with a catheter over the wire and an aspiration of urine from the kidney was completed. With the wire in place, a 6 x 28 Double J stent was placed. It was confirmed with fluoroscopy. With the stent in place , the bladder was emptied. The bladder examined again with images saved. The bladder was left full. The scope was removed. An 18 Fr Hernandez was placed. The patient was cleaned, aroused from anesthesia, and transferred to the pacu in stable condition having tolerated the procedure well with no complications. I was present and participated in all aspects of the procedure. The patient will be monitored in the PACU until transferred. I attest to the content of the Intraoperative Record and any orders documented therein. Any exceptions are noted below.
--- NOTE | 2017-09-07 14:22 | DIAGNOSTIC IMAGING REPORT ---
INTRAOPERATIVE KUB 2 VIEWS CLINICAL HISTORY: RT STENT EXCHANGE COMPARISON STUDY: No previous studies for comparison. FINDINGS: 54 seconds of fluoroscopic time was utilized. 2 intraoperative fluoroscopic spot images are provided for interpretation. There is a joint fluid catheter. There is a double-pigtail right-sided neck ureteral stent. There is right-sided hydronephrosis. Contrast is visualized within the distal left ureter. IMPRESSION: Intraoperative radiographs imaged rating a double-pigtail right-sided ureteral stent and right-sided hydronephrosis Electronically signed by: Cristian Gayle M.D. 09/07/2017 2:21 PM Dictated Date/Time: 09/07/2017 2:20 PM
[2017-09-07] MEDS ORDERED: GLUCOSE 40% GEL 15 GM TUBE PO PRN (14:30)
[2017-09-07] MEDS ORDERED: GLUCAGON FOR INJ 1 MG VIAL SQ PRN (14:30)
[2017-09-07] MEDS ORDERED: GLUCOSE 10 TABS/TUBE PO PRN (14:30)
[2017-09-07] MEDS ORDERED: DEXTROSE 50% 50 ML SYR IV PRN (14:30)
[2017-09-07] MEDS ORDERED: DOCUSATE SODIUM 100 MG CAP PO PRN (14:45)
[2017-09-07] MEDS: FENTANYL CITRATE INJ 50 MCG/1 ML 2 ML VIAL IV PRN ×2 (15:18→15:30)
--- NOTE | 2017-09-07 15:19 | Anesthesiology Progress Note ---
Anesthesia Post Op Note Date & Time Sep 07, 2017 at 15:19 Vital Signs Pain Intensity: 2 Vital Signs Past 12 Hours Date Time Temp Pulse Resp B/P (MAP) Pulse Ox O2 Delivery O2 Flow Rate FiO2 09/07/17 15:05 86 18 109/64 97 Nasal Cannula 4 09/07/17 14:50 85 16 112/58 97 Nasal Cannula 4 09/07/17 14:35 36.6 88 16 103/53 97 Nasal Cannula 4 09/07/17 14:25 94 16 101/60 95 Oxymask 10 09/07/17 14:17 36.4 92 16 108/61 97 Oxymask 10 09/07/17 13:12 37.9 09/07/17 13:04 37.9 84 20 105/53 100 09/07/17 13:00 100 Nasal Cannula 2.0 09/07/17 12:31 89 20 113/65 95 Nasal Cannula 09/07/17 11:05 99 20 127/67 97 Nasal Cannula 2.0 09/07/17 10:17 95 Nasal Cannula 3.0 09/07/17 10:12 96 Room Air 09/07/17 10:12 89 16 155/79 93 Room Air 09/07/17 09:54 82 09/07/17 09:22 37.3 91 20 130/64 97 Room Air Notes Mental Status: alert / awake / arousable, participated in evaluation Pt Amnestic to Procedure: Yes Nausea / Vomiting: adequately controlled Pain: adequately controlled Airway Patency, RR, SpO2: stable & adequate BP & HR: stable & adequate Hydration State: stable & adequate Anesthetic Complications: no major complications apparent
[2017-09-07 16:00] VITALS: BP 99/64; PULSE 87; TEMP 38.1; O2SAT 97
[2017-09-07] MEDS: SODIUM CHLORIDE 0.9% 1000ML 1,000 ML IV SCH ×2 (16:44→23:07)
[2017-09-07] MEDS: GABAPENTIN 300 MG CAP PO SCH ×2 (16:44→20:16)
[2017-09-07] MEDS: INSULIN ASPART 100 UNITS/ML 3 ML PEN SC SCH (17:53)
[2017-09-07] MEDS: OXYCODONE HCL IR 5 MG TAB (IMMEDIATE RELEASE) PO PRN ×2 (17:56→22:20)
[2017-09-07] MEDS: CEFEPIME IV 1,000 MG in SYRINGE 0 ML IV SCH (18:00)
[2017-09-07 18:33] LABS: CALCIUM 8.3 mg/dl (8.5-10.1); CREATININE 1.33 mg/dl (0.60-1.40)
[2017-09-07 19:54] VITALS: BP 123/72; PULSE 96; TEMP 36.7; O2SAT 96
[2017-09-07 20:00] VITALS: O2SAT 96
[2017-09-07] MEDS: ATORVASTATIN 40 MG TAB PO SCH (20:15)
[2017-09-07] MEDS: DOCUSATE SODIUM 100 MG CAP PO SCH (20:15)
[2017-09-07] MEDS: METOPROLOL TARTRATE 25 MG TAB PO SCH (20:16)
[2017-09-07] MEDS: HYDROmorphone INJ 1 MG/ML SYR IV PRN ×2 (20:17→23:49)
[2017-09-07 23:25] VITALS: BP 98/58; PULSE 80; TEMP 38.1; O2SAT 96
[2017-09-07 23:59] VITALS: O2SAT 96
[2017-09-08] MEDS: ACETAMINOPHEN 325 MG TAB PO PRN (01:32)
[2017-09-08] MEDS: OXYCODONE HCL IR 5 MG TAB (IMMEDIATE RELEASE) PO PRN ×4 (02:16→19:56)
[2017-09-08] MEDS: CEFEPIME IV 1,000 MG in SYRINGE 0 ML IV SCH ×3 (02:34→20:29)
[2017-09-08 04:00] VITALS: O2SAT 99
[2017-09-08 04:15] VITALS: BP 99/62; PULSE 68; TEMP 37.1; O2SAT 99
[2017-09-08] MEDS: HYDROmorphone INJ 1 MG/ML SYR IV PRN ×4 (04:51→23:56)
[2017-09-08] MEDS: INSULIN ASPART 100 UNITS/ML 3 ML PEN SC SCH ×5 (06:00→21:00)
[2017-09-08 07:09] LABS: HEMATOCRIT 33.9 % (42-52); HEMOGLOBIN 11.6 g/dL (14.0-18.0); MEAN CELL VOLUME 91.9 fL (80-100); MEAN CORPUSCULAR HEMOGLOBIN 31.4 pg (25-34); MEAN CORPUSCULAR HGB CONC 34.2 g/dl (32-36); MEAN PLATELET VOLUME 9.9 fL (7.4-10.4); PLATELET COUNT 120 K/uL (130-400); RED CELL DISTRIBUTION WIDTH CV 12.7 % (11.5-14.5); WHITE BLOOD COUNT 15.07 K/uL (4.8-10.8)
[2017-09-08 07:43] LABS: CALCIUM 8.1 mg/dl (8.5-10.1); CREATININE 1.3 mg/dl (0.60-1.40); POTASSIUM 3.8 mmol/L (3.5-5.1)
[2017-09-08 07:53] VITALS: BP 115/71; PULSE 75; TEMP 36.9; O2SAT 98
[2017-09-08] MEDS: GABAPENTIN 300 MG CAP PO SCH ×3 (08:14→20:36)
[2017-09-08] MEDS: ASPIRIN 81 MG ECTAB PO SCH (08:14)
[2017-09-08] MEDS: DOCUSATE SODIUM 100 MG CAP PO SCH ×2 (08:14→20:36)
[2017-09-08] MEDS: METOPROLOL TARTRATE 25 MG TAB PO SCH ×2 (08:14→20:36)
[2017-09-08] MEDS: CITALOPRAM 20 MG TAB PO SCH (08:14)
[2017-09-08] MEDS: LISINOPRIL 5 MG TAB PO SCH (08:15)
[2017-09-08] MEDS: TAMSULOSIN HCL 0.4 MG CAP PO SCH (08:15)
--- NOTE | 2017-09-08 08:38 | Anesthesiology Progress Note ---
Anesthesia Post Op Note Date & Time Sep 08, 2017 at 08:37 Vital Signs Pain Intensity: 9.0 Vital Signs Past 12 Hours Date Time Temp Pulse Resp B/P (MAP) Pulse Ox O2 Delivery O2 Flow Rate FiO2 09/08/17 04:15 37.1 68 17 99/62 (74) 99 Nasal Cannula 2.0 09/08/17 04:00 99 Nasal Cannula 2.0 09/07/17 23:59 96 Nasal Cannula 2.0 09/07/17 23:25 38.1 80 18 98/58 (71) 96 Nasal Cannula 3.0 Notes Mental Status: alert / awake / arousable, participated in evaluation Pt Amnestic to Procedure: Yes Nausea / Vomiting: adequately controlled Pain: adequately controlled Airway Patency, RR, SpO2: stable & adequate BP & HR: stable & adequate Hydration State: stable & adequate Anesthetic Complications: no major complications apparent
[2017-09-08] MEDS ORDERED: MAGNESIUM SULFATE 1GM / D5W 1 GM in PREMIXED IN D5W 100 ML IV STA (09:24)
[2017-09-08] MEDS ORDERED: PSYLLIUM 58.6% PWD PACK S\\F PO SCH (10:30)
[2017-09-08] MEDS: SODIUM CHLORIDE 0.9% 1000ML 1,000 ML IV SCH ×2 (11:00→17:53)
[2017-09-08 11:04] VITALS: BP 111/70; PULSE 69; TEMP 37.1; O2SAT 97
[2017-09-08] MEDS: OXYBUTYNIN CHLORIDE 5 MG TAB PO PRN ×2 (12:14→23:55)
--- NOTE | 2017-09-08 12:57 | Progress Note ---
Subjective Date of Service: Sep 08, 2017. Subjective Pt evaluation today including: conversation w/ patient, physical exam, chart review, lab review, review of studies Pain: Controlled POD1 Patient doing well. No pain. No discomfort. Patient still ill feeling. Low energy. Activity slowly increasing. No N/V Problem List Medical Problems: (1) Bladder neoplasm Status: Acute (2) Constipation Status: Acute (3) Intractable abdominal pain Status: Acute (4) UTI (urinary tract infection) Status: Acute Review of Systems All Other Systems: Reviewed and Negative (All reviewed. Pertinent Positives and Negatives in HPI) Objective Vital Signs Date Time Temp Pulse Resp B/P (MAP) Pulse Ox O2 Delivery O2 Flow Rate FiO2 09/08/17 11:04 37.1 69 20 111/70 (84) 97 Nasal Cannula 2.0 09/08/17 08:00 Nasal Cannula 2.0 09/08/17 07:53 36.9 75 20 115/71 (86) 98 Nasal Cannula 3.0 09/08/17 04:15 37.1 68 17 99/62 (74) 99 Nasal Cannula 2.0 09/08/17 04:00 99 Nasal Cannula 2.0 09/07/17 23:59 96 Nasal Cannula 2.0 09/07/17 23:25 38.1 80 18 98/58 (71) 96 Nasal Cannula 3.0 09/07/17 20:00 96 Nasal Cannula 2.0 09/07/17 19:54 36.7 96 19 123/72 (89) 96 Nasal Cannula 2.0 09/07/17 16:00 38.1 87 18 99/64 (76) 97 Nasal Cannula 2.0 09/07/17 15:05 86 18 109/64 97 Nasal Cannula 4 09/07/17 14:50 85 16 112/58 97 Nasal Cannula 4 09/07/17 14:35 36.6 88 16 103/53 97 Nasal Cannula 4 09/07/17 14:25 94 16 101/60 95 Oxymask 10 09/07/17 14:17 36.4 92 16 108/61 97 Oxymask 10 09/07/17 13:12 37.9 09/07/17 13:04 37.9 84 20 105/53 100 09/07/17 13:00 100 Nasal Cannula 2.0 Physical Exam General Appearance: WD/WN, no apparent distress Eyes: normal inspection, PERRL, EOMI ENT: normal ENT inspection, hearing grossly normal Neck: supple, no JVD Respiratory/Chest: no respiratory distress, no accessory muscle use Cardiovascular: regular rate, rhythm Abdomen: + distended Extremities: normal range of motion, normal inspection, no pedal edema 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, no motor/sensory deficits, oriented x 3 Skin: normal color, + diaphoresis Lymphatic: no adenopathy Laboratory Results Last 24 Hours Test 09/07/17 17:47 09/07/17 17:51 09/08/17 01:33 09/08/17 06:16 Sodium Level 135 mmol/L Potassium Level 4.0 mmol/L Chloride Level 101 mmol/L Carbon Dioxide Level 25 mmol/L Anion Gap 9.0 mmol/L Blood Urea Nitrogen 13 mg/dl Creatinine 1.33 mg/dl Est Creatinine Clear Calc Drug Dose 69.9 ml/min Estimated GFR () 65.5 Estimated GFR (Non- 56.5 BUN/Creatinine Ratio 9.7 Random Glucose 113 mg/dl Calcium Level 8.3 mg/dl Bedside Glucose 120 mg/dl 113 mg/dl 106 mg/dl Test 09/08/17 06:58 09/08/17 11:57 White Blood Count 15.07 K/uL Red Blood Count 3.69 M/uL Hemoglobin 11.6 g/dL Hematocrit 33.9 % Mean Corpuscular Volume 91.9 fL Mean Corpuscular Hemoglobin 31.4 pg Mean Corpuscular Hemoglobin Concent 34.2 g/dl RDW Standard Deviation 43.0 fL RDW Coefficient of Variation 12.7 % Platelet Count 120 K/uL Mean Platelet Volume 9.9 fL Sodium Level 135 mmol/L Potassium Level 3.8 mmol/L Chloride Level 104 mmol/L Carbon Dioxide Level 25 mmol/L Anion Gap 6.0 mmol/L Blood Urea Nitrogen 14 mg/dl Creatinine 1.30 mg/dl Est Creatinine Clear Calc Drug Dose 73.3 ml/min Estimated GFR () 67.3 Estimated GFR (Non- 58.1 BUN/Creatinine Ratio 10.5 Random Glucose 118 mg/dl Calcium Level 8.1 mg/dl Phosphorus Level 3.0 mg/dl Magnesium Level 1.7 mg/dl Bedside Glucose 169 mg/dl Assessment and Plan 1. POD 1 Stent Change. 2. Obstructive Uropathy 3. Bacteremia 4. Likely Right Pyelonephritis. 5. Clot Retention. 6. T3 Bladder Cancer. Patient improved pain after stent change. Blood cultures are positive for gram neg bacilli. Likely pyelo of right kidney. Unsure if truly obstructed or if acute pyelonephritis exacerbated by obstruction. Patient has residual tumor in bladder. Ureteral orifice was clear and stent placed easily. Pyelogram concerning for external compression of right ureter possibly due to tumor. Will maintain maximum drainage and plan for broad abx coverage. Patient had TURBT scheduled for Monday. Will reschedule. Also was to get Port placed, likely will need rescheduled due to bacteremia. Continued [facility] stay due to: fever, abnormal vital signs, multiple IV medications needed
[2017-09-08] MEDS ORDERED: NURSING VERBAL MED ORDER ONE ×3 (13:15→15:45)
[2017-09-08] MEDS: PHENAZOPYRIDINE HCL 200 MG TAB PO PRN ×2 (15:08→23:54)
--- NOTE | 2017-09-08 17:18 | Progress Note ---
Subjective Date of Service: Sep 08, 2017. Subjective Pt evaluation today including: conversation w/ patient, conversation w/ family ( at bedside), physical exam, chart review, lab review, review of studies ( CT abd/pelvis), review of inpatient medication list Pain: right flank, back PO Intake: fair/good Voiding: solano catheter in place tele stable overnight feels slightly better today pain over right flank is worst symptom he also has chronic low back pain at home despite copious oxycodone & dilaudid today he has continued with pain Problem List Medical Problems: (1) Bladder neoplasm Status: Acute (2) Constipation Status: Acute (3) Intractable abdominal pain Status: Acute (4) UTI (urinary tract infection) Status: Acute Review of Systems Constitutional: No chills Respiratory: No shortness of breath Cardiac: No chest pain, No orthopnea Abdomen: + see HPI, + pain, No nausea, No vomiting Objective Vital Signs Date Time Temp Pulse Resp B/P (MAP) Pulse Ox O2 Delivery O2 Flow Rate FiO2 09/08/17 12:00 Nasal Cannula 2.0 09/08/17 11:04 37.1 69 20 111/70 (84) 97 Nasal Cannula 2.0 09/08/17 08:00 Nasal Cannula 2.0 09/08/17 07:53 36.9 75 20 115/71 (86) 98 Nasal Cannula 3.0 09/08/17 04:15 37.1 68 17 99/62 (74) 99 Nasal Cannula 2.0 09/08/17 04:00 99 Nasal Cannula 2.0 09/07/17 23:59 96 Nasal Cannula 2.0 09/07/17 23:25 38.1 80 18 98/58 (71) 96 Nasal Cannula 3.0 09/07/17 20:00 96 Nasal Cannula 2.0 09/07/17 19:54 36.7 96 19 123/72 (89) 96 Nasal Cannula 2.0 Physical Exam General Appearance: no apparent distress ENT: pharynx normal Neck: no JVD Respiratory/Chest: lungs clear, no respiratory distress, no accessory muscle use Cardiovascular: regular rate, rhythm, no gallop, no murmur Abdomen: normal bowel sounds, soft, no organomegaly, + tenderness (right flank to percussion) Extremities: no pedal edema Neurologic/Psychiatric: alert, oriented x 3 Laboratory Results Last 24 Hours Test 09/07/17 17:47 09/07/17 17:51 09/08/17 01:33 09/08/17 06:16 Sodium Level 135 mmol/L Potassium Level 4.0 mmol/L Chloride Level 101 mmol/L Carbon Dioxide Level 25 mmol/L Anion Gap 9.0 mmol/L Blood Urea Nitrogen 13 mg/dl Creatinine 1.33 mg/dl Est Creatinine Clear Calc Drug Dose 69.9 ml/min Estimated GFR () 65.5 Estimated GFR (Non- 56.5 BUN/Creatinine Ratio 9.7 Random Glucose 113 mg/dl Calcium Level 8.3 mg/dl Bedside Glucose 120 mg/dl 113 mg/dl 106 mg/dl Test 09/08/17 06:58 09/08/17 11:57 09/08/17 16:43 White Blood Count 15.07 K/uL Red Blood Count 3.69 M/uL Hemoglobin 11.6 g/dL Hematocrit 33.9 % Mean Corpuscular Volume 91.9 fL Mean Corpuscular Hemoglobin 31.4 pg Mean Corpuscular Hemoglobin Concent 34.2 g/dl RDW Standard Deviation 43.0 fL RDW Coefficient of Variation 12.7 % Platelet Count 120 K/uL Mean Platelet Volume 9.9 fL Sodium Level 135 mmol/L Potassium Level 3.8 mmol/L Chloride Level 104 mmol/L Carbon Dioxide Level 25 mmol/L Anion Gap 6.0 mmol/L Blood Urea Nitrogen 14 mg/dl Creatinine 1.30 mg/dl Est Creatinine Clear Calc Drug Dose 73.3 ml/min Estimated GFR () 67.3 Estimated GFR (Non- 58.1 BUN/Creatinine Ratio 10.5 Random Glucose 118 mg/dl Calcium Level 8.1 mg/dl Phosphorus Level 3.0 mg/dl Magnesium Level 1.7 mg/dl Bedside Glucose 169 mg/dl 131 mg/dl Assessment and Plan 62yo male: 1. GNR septicemia - 2nd to complicated/solano-catheter associated UTI +/- right- sided pyelonephritis. Cont cefepime, await blood culture results. Repeat blood cx's in the AM for test of cure. 2. right-sided ureteral obstruction 2nd to bladder cancer - s/p stent exchange , POD #1. Appreciate urology assistance. 3. hyponatremia - 2nd to dehydration - resolved. Lower fluid rate to 75cc/hr. 4. bladder cancer - recent diagnosis - noted. 5. hypomagnesemia - replace, repeat level in AM. 6. CAD - no ischemic symptoms at this time. echo this admission. 7. chronic pain syndrome with acute pain 2nd to #1 above - increase dilaudid to 1.5mg q4h prn. Toradol prn as well. 8. DVT proph - start lovenox tomorrow. 9. T2DM - controlled. Novolog meals/HS. Holding oral agents. 10. HTN - controlled. 11. FEN - lower fluid rate to 75cc/hr. Repeat BMP/mag in am. 12. PT, OT 13. constipation - metamucil TID per his request. patient apparently was scheduled to have outpatient echo today to reassess LV function prior to start of Rx for bladder cancer noted that last echo in 2015 showed EF 50% will repeat echo to reassess LV function Continued [facility] stay due to: fever, abnormal vital signs, inadequate oral pain control, multiple IV medications needed Discharge planning: uncertain
[2017-09-08] MEDS: PSYLLIUM 58.6% PWD PACK S\\F PO SCH ×2 (17:41→21:00)
[2017-09-08 19:15] VITALS: BP 105/61; PULSE 81; TEMP 37.4; O2SAT 95
[2017-09-08] MEDS: ATORVASTATIN 40 MG TAB PO SCH (20:36)
[2017-09-09 00:25] VITALS: BP 115/67; PULSE 74; TEMP 36.5; O2SAT 96
[2017-09-09] MEDS: OXYCODONE HCL IR 5 MG TAB (IMMEDIATE RELEASE) PO PRN ×4 (02:28→16:34)
[2017-09-09] MEDS: KETOROLAC TROMETHAMINE 30 MG/ML VIAL IV PRN ×2 (02:29→19:33)
[2017-09-09] MEDS: CEFEPIME IV 1,000 MG in SYRINGE 0 ML IV SCH (02:33)
[2017-09-09 06:06] VITALS: BP 102/57; PULSE 61; TEMP 36.7; O2SAT 94
[2017-09-09] MEDS: HYDROmorphone INJ 1 MG/ML SYR IV PRN ×3 (06:37→19:34)
[2017-09-09] MEDS: SODIUM CHLORIDE 0.9% 1000ML 1,000 ML IV SCH ×3 (07:34→19:43)
[2017-09-09] MEDS: INSULIN ASPART 100 UNITS/ML 3 ML PEN SC SCH ×4 (07:34→21:53)
[2017-09-09 07:39] LABS: BASO % 0.1 %; BASO ABS # 0.01 K/uL (0-0.2); EOS % 0.6 %; EOS ABS # 0.07 K/uL (0-0.5); HEMATOCRIT 33.6 % (42-52); HEMOGLOBIN 11.3 g/dL (14.0-18.0); IG# 0.06 K/uL (0.00-0.02); LYMPH % 6.8 %; LYMPH ABS # 0.76 K/uL (1.2-3.4); MEAN CELL VOLUME 93.3 fL (80-100); MEAN CORPUSCULAR HEMOGLOBIN 31.4 pg (25-34); MEAN CORPUSCULAR HGB CONC 33.6 g/dl (32-36); MEAN PLATELET VOLUME 10.3 fL (7.4-10.4); MONO % 11.6 %; NEUT % 80.4 %; NEUT ABS # 9.04 K/uL (1.4-6.5); PLATELET COUNT 117 K/uL (130-400); RED CELL DISTRIBUTION WIDTH CV 12.8 % (11.5-14.5); RED CELL DISTRIBUTION WIDTH SD 43.3 fL (36.4-46.3); WHITE BLOOD COUNT 11.24 K/uL (4.8-10.8)
[2017-09-09] MEDS: METOPROLOL TARTRATE 25 MG TAB PO SCH ×2 (08:04→21:52)
[2017-09-09] MEDS: PSYLLIUM 58.6% PWD PACK S\\F PO SCH ×3 (08:05→16:38)
[2017-09-09] MEDS: GABAPENTIN 300 MG CAP PO SCH ×3 (08:07→21:51)
[2017-09-09] MEDS: OXYBUTYNIN CHLORIDE 5 MG TAB PO PRN (08:07)
[2017-09-09] MEDS: ASPIRIN 81 MG ECTAB PO SCH (08:08)
[2017-09-09] MEDS: LISINOPRIL 5 MG TAB PO SCH (08:08)
[2017-09-09] MEDS: CITALOPRAM 20 MG TAB PO SCH (08:09)
[2017-09-09] MEDS: DOCUSATE SODIUM 100 MG CAP PO SCH ×2 (08:09→21:52)
[2017-09-09] MEDS: TAMSULOSIN HCL 0.4 MG CAP PO SCH (08:09)
[2017-09-09] MEDS: PHENAZOPYRIDINE HCL 200 MG TAB PO PRN ×2 (08:10→16:30)
[2017-09-09 08:11] LABS: CALCIUM 8.1 mg/dl (8.5-10.1); CREATININE 1.17 mg/dl (0.60-1.40); POTASSIUM 3.6 mmol/L (3.5-5.1)
[2017-09-09 08:14] VITALS: BP 104/44; PULSE 68; TEMP 37.1; O2SAT 98
[2017-09-09] MEDS: CIPROFLOXACIN / D5W 400 MG in PREMIXED IN D5W 200 ML IV SCH ×2 (08:24→21:51)
[2017-09-09 11:10] VITALS: BP 112/59; PULSE 66; TEMP 36.8; O2SAT 94
--- NOTE | 2017-09-09 12:23 | Progress Note ---
Subjective Date of Service: Sep 09, 2017. Subjective Pt evaluation today including: conversation w/ patient, physical exam, chart review, lab review, review of studies pt feeling better ,with better appetite R flank pain present but better Anxious to move forward with workup and RX Problem List Medical Problems: (1) Bladder neoplasm Status: Acute (2) Constipation Status: Acute (3) Intractable abdominal pain Status: Acute (4) UTI (urinary tract infection) Status: Acute Objective Vital Signs Date Time Temp Pulse Resp B/P (MAP) Pulse Ox O2 Delivery O2 Flow Rate FiO2 09/09/17 11:10 36.8 66 20 112/59 (76) 94 Nasal Cannula 2.0 09/09/17 08:14 37.1 68 20 104/44 (64) 98 Nasal Cannula 2.0 09/09/17 08:00 Nasal Cannula 2.0 09/09/17 06:06 36.7 61 20 102/57 (72) 94 Nasal Cannula 2.0 09/09/17 04:00 Nasal Cannula 2.0 09/09/17 00:25 36.5 74 20 115/67 (83) 96 Nasal Cannula 2.0 09/09/17 00:00 Nasal Cannula 2.0 09/08/17 20:00 Nasal Cannula 2.0 09/08/17 19:15 37.4 81 18 105/61 (76) 95 Room Air 09/08/17 16:00 Nasal Cannula 2.0 Physical Exam Comments: culture positive for Klebsiella sensitive to cipro which he is on Laboratory Results Last 24 Hours Test 09/08/17 16:43 09/08/17 20:20 09/09/17 06:26 09/09/17 07:14 Bedside Glucose 131 mg/dl 184 mg/dl 141 mg/dl White Blood Count 11.24 K/uL Red Blood Count 3.60 M/uL Hemoglobin 11.3 g/dL Hematocrit 33.6 % Mean Corpuscular Volume 93.3 fL Mean Corpuscular Hemoglobin 31.4 pg Mean Corpuscular Hemoglobin Concent 33.6 g/dl Platelet Count 117 K/uL Mean Platelet Volume 10.3 fL Neutrophils (%) (Auto) 80.4 % Lymphocytes (%) (Auto) 6.8 % Monocytes (%) (Auto) 11.6 % Eosinophils (%) (Auto) 0.6 % Basophils (%) (Auto) 0.1 % Neutrophils # (Auto) 9.04 K/uL Lymphocytes # (Auto) 0.76 K/uL Monocytes # (Auto) 1.30 K/uL Eosinophils # (Auto) 0.07 K/uL Basophils # (Auto) 0.01 K/uL RDW Standard Deviation 43.3 fL RDW Coefficient of Variation 12.8 % Immature Granulocyte % (Auto) 0.5 % Immature Granulocyte # (Auto) 0.06 K/uL Sodium Level 138 mmol/L Potassium Level 3.6 mmol/L Chloride Level 103 mmol/L Carbon Dioxide Level 29 mmol/L Anion Gap 6.0 mmol/L Blood Urea Nitrogen 13 mg/dl Creatinine 1.17 mg/dl Est Creatinine Clear Calc Drug Dose 81.4 ml/min Estimated GFR () 76.4 Estimated GFR (Non- 66.0 BUN/Creatinine Ratio 11.4 Random Glucose 122 mg/dl Calcium Level 8.1 mg/dl Magnesium Level 1.9 mg/dl Test 09/09/17 10:58 Bedside Glucose 156 mg/dl Assessment and Plan continue antibiotics and pain control pt wbc down and pain better Continued [facility] stay due to: fever, abnormal vital signs, inadequate oral pain control, multiple IV medications needed Discharge planning: uncertain
--- NOTE | 2017-09-09 14:30 | ECHOCARDIOGRAM REPORT ---
*NOTICE TO RECEIVING [facility] This information is strictly Confidential and protected under [place] law. [place] law prohibits you from making any further disclosure of this information unless further disclosure is expressly permitted by the written consent of the person to whom it pertains or is authorized by law. A general authorization for the release of medical or other information is not sufficient for this purpose. Hospital accepts no responsibility if the information is made available to any other person, INCLUDING THE PATIENT. Interpretation Summary * Name: LIZET JONES Study Date: 09/09/2017 08:02 AM BP: 102/57 mmHg * Patient Location: C.2E\S\E208\S\1 HR: 68 * : 1955 (M/d/yyyy) Gender: Male Height: 72 in * Age: 62 yrs Ethnicity: [place] Weight: 234 lb * Ordering Physician: Balwinder Marte * Referring Physician: Self, Referred * Performed By: Brice Shin RDCS * * Reason For Study: CAD * BSA: 2.3 m2 * -- Conclusions -- * Left ventricular systolic function is normal. * No definite wall motion abnormalities. * Ejection Fraction = 60-65%. * There is mild concentric left ventricular hypertrophy. * Grade I diastolic dysfunction, (abnormal relaxation pattern). * No significant valvular pathology. Procedure Details * A complete two-dimensional transthoracic echocardiogram was performed (2D, M-mode, Doppler and color flow Doppler). * The study was technically adequate. Left Ventricle * The left ventricle is normal in size. * There is mild concentric left ventricular hypertrophy. * Ejection Fraction = 60-65%. * Left ventricular systolic function is normal. * No definite wall motion abnormalities. Right Ventricle * The right ventricle is grossly normal size. * The right ventricular systolic function is normal as assessed by tricuspid annular plane systolic excursion (TAPSE) (normal >1.5 cm). Atria * The left atrial size is normal. * Right atrial size is normal. * No ASD detected; PFO is not assessed. Mitral Valve * The mitral valve anatomy is normal. * There is no mitral valve stenosis. * Significant mitral regurgitation is absent. Tricuspid Valve * The tricuspid valve is not well visualized, but is grossly normal. * There is no tricuspid stenosis. * Significant tricuspid regurgitation is absent. Aortic Valve * The aortic valve is normal in structure and function. * No hemodynamically significant valvular aortic stenosis. * No aortic regurgitation is present. Pulmonic Valve * The pulmonary valve is not well seen, but the Doppler examination is normal without significant regurgitation or stenosis. Great Vessels * The aortic root is not well visualized but is probably normal size. * The pulmonary is not well visualized. Pericardium/Pleural * There is no pericardial effusion. Great Vessels * There is no evidence of pulmonary hypertension. The PA systolic pressure is less than 36 mmHg. Left Ventricular Diastolic Function * Grade I diastolic dysfunction, (abnormal relaxation pattern). MMode 2D Measurements and Calculations IVSd 1.2 cm LVIDd 4.3 cm LVIDs 3.2 cm LVPWd 1.2 cm IVS/LVPW 1.0 FS 25.6 % EDV(Teich) 82.0 ml ESV(Teich) 40.4 ml EF(Teich) 50.8 % EDV(cubed) 78.2 ml ESV(cubed) 32.2 ml EF(cubed) 58.8 % LV mass(C)d 183.9 grams LV mass(C)dI 80.8 grams/m\S\2 SV(Teich) 41.6 ml SI(Teich) 18.3 ml/m\S\2 SV(cubed) 46.0 ml SI(cubed) 20.2 ml/m\S\2 EPSS 0.55 cm ACS 2.2 cm asc Aorta Diam 3.6 cm LVOT diam 2.1 cm LVOT area 3.3 cm\S\2 LVAd ap4 30.5 cm\S\2 LVLd ap4 9.0 cm EDV(MOD-sp4) 87.8 ml EDV(sp4-el) 87.7 ml LVAs ap4 17.6 cm\S\2 LVLs ap4 7.5 cm ESV(MOD-sp4) 37.6 ml ESV(sp4-el) 35.0 ml EF(MOD-sp4) 57.2 % EF(sp4-el) 60.1 % LVAd ap2 28.8 cm\S\2 LVLd ap2 8.9 cm EDV(MOD-sp2) 77.5 ml EDV(sp2-el) 79.1 ml LVAs ap2 16.3 cm\S\2 LVLs ap2 7.3 cm ESV(MOD-sp2) 29.8 ml ESV(sp2-el) 30.8 ml EF(MOD-sp2) 61.6 % EF(sp2-el) 61.1 % LVLd %diff -1.56 % EDV(MOD-bp) 82.3 ml LVLs %diff -2.35 % ESV(MOD-bp) 32.8 ml EF(MOD-bp) 60.2 % SV(MOD-sp4) 50.2 ml SI(MOD-sp4) 22.0 ml/m\S\2 SV(MOD-sp2) 47.8 ml SI(MOD-sp2) 21.0 ml/m\S\2 SV(MOD-bp) 49.5 ml SI(MOD-bp) 21.7 ml/m\S\2 SV(sp4-el) 52.7 ml SI(sp4-el) 23.1 ml/m\S\2 SV(sp2-el) 48.3 ml SI(sp2-el) 21.2 ml/m\S\2 Doppler Measurements and Calculations MV E max tom 79.1 cm/sec MV A max tom 89.9 cm/sec MV E/A 0.88 MV dec time 0.29 sec Ao V2 max 186.2 cm/sec Ao max PG 13.9 mmHg Ao max PG (full) 6.6 mmHg TIM(V,A) 2.4 cm\S\2 TIM(V,D) 2.4 cm\S\2 LV V1 max PG 7.3 mmHg LV V1 max 134.9 cm/sec TR max tom 230.6 cm/sec
[2017-09-09 15:20] VITALS: BP 105/59; PULSE 60; TEMP 36.6; O2SAT 93
[2017-09-09] MEDS ORDERED: ENOXAPARIN 40 MG/0.4 ML SYR SQ ONE (18:00)
--- NOTE | 2017-09-09 18:00 | Progress Note ---
Subjective Date of Service: Sep 09, 2017. Subjective Pt evaluation today including: conversation w/ patient, conversation w/ family (, daughter at bedside), physical exam, chart review, lab review, review of studies (echo), review of inpatient medication list Pain: right flank pain better PO Intake: improving Voiding: solano catheter in place tele stable overnight he overall feels better less pain in his right flank and back he admits to using oxycodone 2-3x's each day for 6-12 months at home also uses CPAP for NIDIA with sleeping (and especially after IV dilaudid) o2 sats noted to drop to the 80s reports bowel movement this am Problem List Medical Problems: (1) Bladder neoplasm Status: Acute (2) Constipation Status: Acute (3) Intractable abdominal pain Status: Acute (4) UTI (urinary tract infection) Status: Acute Review of Systems Constitutional: No fever, No chills, No fatigue Respiratory: No shortness of breath Cardiac: No chest pain, No orthopnea Abdomen: + see HPI, + pain, No nausea, No vomiting Objective Vital Signs Date Time Temp Pulse Resp B/P (MAP) Pulse Ox O2 Delivery O2 Flow Rate FiO2 09/09/17 15:20 36.6 60 18 105/59 (74) 93 Room Air 09/09/17 12:00 Nasal Cannula 2.0 09/09/17 11:10 36.8 66 20 112/59 (76) 94 Nasal Cannula 2.0 09/09/17 08:14 37.1 68 20 104/44 (64) 98 Nasal Cannula 2.0 09/09/17 08:00 Nasal Cannula 2.0 09/09/17 06:06 36.7 61 20 102/57 (72) 94 Nasal Cannula 2.0 09/09/17 04:00 Nasal Cannula 2.0 09/09/17 00:25 36.5 74 20 115/67 (83) 96 Nasal Cannula 2.0 09/09/17 00:00 Nasal Cannula 2.0 09/08/17 20:00 Nasal Cannula 2.0 09/08/17 19:15 37.4 81 18 105/61 (76) 95 Room Air Physical Exam General Appearance: no apparent distress, + pertinent finding (looks better) ENT: pharynx normal Neck: no JVD Respiratory/Chest: lungs clear, no respiratory distress, no accessory muscle use Cardiovascular: regular rate, rhythm, no gallop, no murmur Abdomen: normal bowel sounds, soft, no organomegaly, + tenderness (mild, right flank/CVA region) Extremities: no pedal edema Neurologic/Psychiatric: alert, oriented x 3 Laboratory Results Last 24 Hours Test 09/08/17 20:20 09/09/17 06:26 09/09/17 07:14 09/09/17 10:58 Bedside Glucose 184 mg/dl 141 mg/dl 156 mg/dl White Blood Count 11.24 K/uL Red Blood Count 3.60 M/uL Hemoglobin 11.3 g/dL Hematocrit 33.6 % Mean Corpuscular Volume 93.3 fL Mean Corpuscular Hemoglobin 31.4 pg Mean Corpuscular Hemoglobin Concent 33.6 g/dl Platelet Count 117 K/uL Mean Platelet Volume 10.3 fL Neutrophils (%) (Auto) 80.4 % Lymphocytes (%) (Auto) 6.8 % Monocytes (%) (Auto) 11.6 % Eosinophils (%) (Auto) 0.6 % Basophils (%) (Auto) 0.1 % Neutrophils # (Auto) 9.04 K/uL Lymphocytes # (Auto) 0.76 K/uL Monocytes # (Auto) 1.30 K/uL Eosinophils # (Auto) 0.07 K/uL Basophils # (Auto) 0.01 K/uL RDW Standard Deviation 43.3 fL RDW Coefficient of Variation 12.8 % Immature Granulocyte % (Auto) 0.5 % Immature Granulocyte # (Auto) 0.06 K/uL Sodium Level 138 mmol/L Potassium Level 3.6 mmol/L Chloride Level 103 mmol/L Carbon Dioxide Level 29 mmol/L Anion Gap 6.0 mmol/L Blood Urea Nitrogen 13 mg/dl Creatinine 1.17 mg/dl Est Creatinine Clear Calc Drug Dose 81.4 ml/min Estimated GFR () 76.4 Estimated GFR (Non- 66.0 BUN/Creatinine Ratio 11.4 Random Glucose 122 mg/dl Calcium Level 8.1 mg/dl Magnesium Level 1.9 mg/dl Test 09/09/17 16:25 Bedside Glucose 131 mg/dl Assessment and Plan 62yo male: 1. klebsiella septicemia - 2nd to complicated/solano-catheter associated UTI +/ - right-sided pyelonephritis - improved. Repeat blood cx's today to ensure sterility/test of cure. d/c cefepime; change to IV cipro 400mg q12h. In 1-2 days, as long as stable/improving, can change to PO cipro to complete at least 14 days in total of antibiotics. 2. right-sided ureteral obstruction 2nd to bladder cancer - s/p stent exchange , POD #2. Appreciate urology assistance. 3. hyponatremia - 2nd to dehydration - resolved. Can possibly d/c fluids later today if eating/drinking well and BP remains stable. 4. bladder cancer - recent diagnosis - noted. 5. hypomagnesemia - resolved. 6. CAD - no ischemic symptoms at this time. ECHO w/o wall motion abnormalities and preserved EF. Cont asa, statin, BB. 7. chronic pain syndrome with acute pain 2nd to #1 above - cont dilaudid IV prn. Toradol prn as well. 8. DVT proph - start lovenox 40mg once daily. Follow platelet count carefully. 9. T2DM - controlled. Novolog meals/HS. Holding oral agents. 10. HTN - controlled, but BPs low-normal. Hold MICHAEL. Lower metoprolol to 12.5mg BID. 11. FEN - lytes stable, eating is better; repeat BMP am. Cont NS at 75cc/hr; consider d/c later today. 12. constipation - metamucil TID. 13. NIDIA - pt's asked to bring in home CPAP. 14. mild thrombocytopenia - suspect 2nd to #1 and platelet count should improve with Rx of septicemia. CBC in am. 15. mild hypoxia - likely hypoventilation when he uses IV dilaudid + NIDIA when he is sleeping (and not using CPAP). Incentive spirometry, use narcotics cautiously, CPAP at HS/naps for NIDIA. NO evidence of CHF on exam today. family updated leave on tele until AM can likely go to med/surg tomorrow if stable PT, OT mihir requested Continued [facility] stay due to: inadequate oral pain control, multiple IV medications needed Discharge planning: home
[2017-09-09 19:03] VITALS: BP 104/62; PULSE 67; TEMP 37.8; O2SAT 95
[2017-09-09] MEDS: ATORVASTATIN 40 MG TAB PO SCH (21:51)
[2017-09-10] VITALS (7 sets, daily range): BP systolic 103–134; BP diastolic 62–96; PULSE 56–80; TEMP 36.5–37.5; O2SAT 91–96
[2017-09-10] MEDS: OXYCODONE HCL IR 5 MG TAB (IMMEDIATE RELEASE) PO PRN ×4 (01:33→23:18)
[2017-09-10] MEDS: KETOROLAC TROMETHAMINE 30 MG/ML VIAL IV PRN (03:45)
[2017-09-10] MEDS: HYDROmorphone INJ 1 MG/ML SYR IV PRN ×4 (03:46→20:19)
[2017-09-10] MEDS: INSULIN ASPART 100 UNITS/ML 3 ML PEN SC SCH ×5 (07:00→20:54)
[2017-09-10 07:15] LABS: HEMATOCRIT 33.6 % (42-52); HEMOGLOBIN 11.2 g/dL (14.0-18.0); MEAN CELL VOLUME 92.3 fL (80-100); MEAN CORPUSCULAR HEMOGLOBIN 30.8 pg (25-34); MEAN CORPUSCULAR HGB CONC 33.3 g/dl (32-36); MEAN PLATELET VOLUME 10.5 fL (7.4-10.4); PLATELET COUNT 126 K/uL (130-400); RED CELL DISTRIBUTION WIDTH CV 12.6 % (11.5-14.5); RED CELL DISTRIBUTION WIDTH SD 42.8 fL (36.4-46.3); WHITE BLOOD COUNT 8.83 K/uL (4.8-10.8)
[2017-09-10] MEDS: DOCUSATE SODIUM 100 MG CAP PO SCH ×2 (07:26→17:45)
[2017-09-10] MEDS: ASPIRIN 81 MG ECTAB PO SCH (07:27)
[2017-09-10] MEDS: CITALOPRAM 20 MG TAB PO SCH (07:27)
[2017-09-10] MEDS: METOPROLOL TARTRATE 25 MG TAB PO SCH ×2 (07:27→20:27)
[2017-09-10] MEDS: ENOXAPARIN 40 MG/0.4 ML SYR SQ SCH (07:28)
[2017-09-10] MEDS: OXYBUTYNIN CHLORIDE 5 MG TAB PO PRN (07:28)
[2017-09-10] MEDS: PSYLLIUM 58.6% PWD PACK S\\F PO SCH ×3 (07:28→20:28)
[2017-09-10] MEDS: TAMSULOSIN HCL 0.4 MG CAP PO SCH (07:29)
[2017-09-10] MEDS: GABAPENTIN 300 MG CAP PO SCH ×3 (07:29→20:28)
[2017-09-10] MEDS: PHENAZOPYRIDINE HCL 200 MG TAB PO PRN (07:32)
[2017-09-10 07:47] LABS: CALCIUM 8.1 mg/dl (8.5-10.1); CREATININE 1.14 mg/dl (0.60-1.40); POTASSIUM 3.6 mmol/L (3.5-5.1)
--- NOTE | 2017-09-10 08:30 | Progress Note ---
Subjective Date of Service: Sep 10, 2017. Subjective pt has no new concerns just happy that he is recovering, anxious to discuss the future of his solano with urology tomorrow, no other active issues Problem List Medical Problems: (1) Bladder neoplasm Status: Acute (2) Constipation Status: Acute (3) Intractable abdominal pain Status: Acute (4) UTI (urinary tract infection) Status: Acute Review of Systems Constitutional: + weakness, + fatigue Respiratory: No cough, No sputum, No shortness of breath, No dyspnea on exertion Cardiac: No chest pain, No edema Abdomen: No pain, No nausea, No vomiting Male : + dysuria, No incontinence Psychiatric: No depression symptoms, No anhedonism Objective Vital Signs Date Time Temp Pulse Resp B/P (MAP) Pulse Ox O2 Delivery O2 Flow Rate FiO2 09/10/17 08:00 Nasal Cannula 2.0 09/10/17 04:06 37.1 80 19 107/77 (87) 91 Room Air 09/10/17 04:00 Nasal Cannula 2.0 09/10/17 00:30 36.6 57 20 103/62 (76) 96 Room Air 09/10/17 00:00 Nasal Cannula 2.0 09/09/17 20:00 Nasal Cannula 2.0 09/09/17 19:03 37.8 67 18 104/62 (76) 95 Room Air 09/09/17 16:00 Nasal Cannula 2.0 09/09/17 15:20 36.6 60 18 105/59 (74) 93 Room Air 09/09/17 12:00 Nasal Cannula 2.0 09/09/17 11:10 36.8 66 20 112/59 (76) 94 Nasal Cannula 2.0 Physical Exam General Appearance: WD/WN, + mild distress (due to fatigue) Eyes: normal inspection, sclerae normal Respiratory/Chest: chest non-tender, lungs clear, normal breath sounds Cardiovascular: regular rate, rhythm, no murmur Abdomen: normal bowel sounds, soft, + tenderness (suprapubic) Neurologic/Psychiatric: alert, oriented x 3 Laboratory Results Last 24 Hours Test 09/09/17 10:58 09/09/17 16:25 09/09/17 20:37 09/10/17 06:16 Bedside Glucose 156 mg/dl 131 mg/dl 164 mg/dl White Blood Count 8.83 K/uL Red Blood Count 3.64 M/uL Hemoglobin 11.2 g/dL Hematocrit 33.6 % Mean Corpuscular Volume 92.3 fL Mean Corpuscular Hemoglobin 30.8 pg Mean Corpuscular Hemoglobin Concent 33.3 g/dl RDW Standard Deviation 42.8 fL RDW Coefficient of Variation 12.6 % Platelet Count 126 K/uL Mean Platelet Volume 10.5 fL Sodium Level 138 mmol/L Potassium Level 3.6 mmol/L Chloride Level 104 mmol/L Carbon Dioxide Level 29 mmol/L Anion Gap 5.0 mmol/L Blood Urea Nitrogen 14 mg/dl Creatinine 1.14 mg/dl Est Creatinine Clear Calc Drug Dose 83.7 ml/min Estimated GFR () 78.9 Estimated GFR (Non- 68.1 BUN/Creatinine Ratio 12.0 Random Glucose 118 mg/dl Calcium Level 8.1 mg/dl Test 09/10/17 06:42 Bedside Glucose 146 mg/dl Assessment and Plan 62yo male sepsis from uti poa, previous bladder cancer klebsiella septicemia - 2nd to complicated/solano-catheter associated UTI +/- right-sided pyelonephritis changed to IV cipro 400mg q12h, complete at least 14 days in total of antibiotics. right-sided ureteral obstruction 2nd to bladder cancer - s/p stent exchange, urology to follow hyponatremia - resolved, hypomagnesemia - resolved. CAD - no ischemic symptoms at this time. ECHO w/o wall motion abnormalities and preserved EF. Cont asa, statin, BB. chronic pain syndrome with acute pain dilaudid IV prn. Toradol prn as well. DVT proph - start lovenox 40mg once daily, had mild thrombocytopenia will monitor for HIT. T2DM - controlled. Novolog meals/HS. consider restarting oral agent HTN - controlled, but BPs low-normal. Holding MICHAEL. Lower metoprolol to 12.5mg BID. constipation - metamucil TID. NIDIA - home CPAP. . Continued [facility] stay due to: inadequate oral pain control, multiple IV medications needed Discharge planning: home
[2017-09-10] MEDS: CIPROFLOXACIN / D5W 400 MG in PREMIXED IN D5W 200 ML IV SCH ×2 (09:19→20:21)
[2017-09-10] MEDS ORDERED: SENNA 8.6 MG TAB PO ONE (14:15)
[2017-09-10] MEDS: SENNA 8.6 MG TAB PO SCH (15:44)
--- NOTE | 2017-09-10 15:49 | Progress Note ---
Subjective Date of Service: Sep 10, 2017. Subjective Pt evaluation today including: conversation w/ patient, physical exam, lab review pt with less pain anxious to moveforward to bladder cancer treatment Problem List Medical Problems: (1) Bladder neoplasm Status: Acute (2) Constipation Status: Acute (3) Intractable abdominal pain Status: Acute (4) UTI (urinary tract infection) Status: Acute Objective Vital Signs Date Time Temp Pulse Resp B/P (MAP) Pulse Ox O2 Delivery O2 Flow Rate FiO2 09/10/17 12:43 36.6 65 20 122/71 (88) 95 Room Air 09/10/17 12:00 Room Air 09/10/17 08:00 Room Air 09/10/17 07:20 36.5 63 20 126/96 (106) 95 Room Air 09/10/17 04:06 37.1 80 19 107/77 (87) 91 Room Air 09/10/17 04:00 Nasal Cannula 2.0 09/10/17 00:30 36.6 57 20 103/62 (76) 96 Room Air 09/10/17 00:00 Nasal Cannula 2.0 09/09/17 20:00 Nasal Cannula 2.0 09/09/17 19:03 37.8 67 18 104/62 (76) 95 Room Air 09/09/17 16:00 Nasal Cannula 2.0 Laboratory Results Last 24 Hours Test 09/09/17 16:25 09/09/17 20:37 09/10/17 06:16 09/10/17 06:42 Bedside Glucose 131 mg/dl 164 mg/dl 146 mg/dl White Blood Count 8.83 K/uL Red Blood Count 3.64 M/uL Hemoglobin 11.2 g/dL Hematocrit 33.6 % Mean Corpuscular Volume 92.3 fL Mean Corpuscular Hemoglobin 30.8 pg Mean Corpuscular Hemoglobin Concent 33.3 g/dl RDW Standard Deviation 42.8 fL RDW Coefficient of Variation 12.6 % Platelet Count 126 K/uL Mean Platelet Volume 10.5 fL Sodium Level 138 mmol/L Potassium Level 3.6 mmol/L Chloride Level 104 mmol/L Carbon Dioxide Level 29 mmol/L Anion Gap 5.0 mmol/L Blood Urea Nitrogen 14 mg/dl Creatinine 1.14 mg/dl Est Creatinine Clear Calc Drug Dose 83.7 ml/min Estimated GFR () 78.9 Estimated GFR (Non- 68.1 BUN/Creatinine Ratio 12.0 Random Glucose 118 mg/dl Calcium Level 8.1 mg/dl Test 09/10/17 10:43 Bedside Glucose 146 mg/dl Assessment and Plan continue antibiotics and pain control pt wbc down and pain better Continued [facility] stay due to: inadequate oral pain control, multiple IV medications needed Discharge planning: home
[2017-09-10] MEDS ORDERED: NURSING VERBAL MED ORDER ONE (16:15)
[2017-09-10] MEDS: SODIUM CHLORIDE 0.9% 1000ML 1,000 ML IV SCH (16:29)
[2017-09-10] MEDS: ATORVASTATIN 40 MG TAB PO SCH (20:23)
[2017-09-11] MEDS: KETOROLAC TROMETHAMINE 30 MG/ML VIAL IV PRN ×3 (02:25→23:25)
[2017-09-11 07:33] VITALS: BP 126/83; PULSE 61; TEMP 37; O2SAT 96
[2017-09-11] MEDS: SENNA 8.6 MG TAB PO SCH (08:07)
[2017-09-11] MEDS: OXYCODONE HCL IR 5 MG TAB (IMMEDIATE RELEASE) PO PRN ×3 (08:11→21:35)
[2017-09-11] MEDS: TAMSULOSIN HCL 0.4 MG CAP PO SCH (08:37)
[2017-09-11] MEDS: GABAPENTIN 300 MG CAP PO SCH ×3 (08:37→21:30)
[2017-09-11] MEDS: ASPIRIN 81 MG ECTAB PO SCH (08:37)
[2017-09-11] MEDS: CITALOPRAM 20 MG TAB PO SCH (08:37)
[2017-09-11] MEDS: ENOXAPARIN 40 MG/0.4 ML SYR SQ SCH (08:38)
[2017-09-11] MEDS: DOCUSATE SODIUM 100 MG CAP PO SCH ×2 (08:40→21:24)
[2017-09-11] MEDS: PSYLLIUM 58.6% PWD PACK S\\F PO SCH ×3 (08:40→18:32)
[2017-09-11] MEDS: INSULIN ASPART 100 UNITS/ML 3 ML PEN SC SCH ×4 (08:41→21:28)
[2017-09-11] MEDS: CIPROFLOXACIN / D5W 400 MG in PREMIXED IN D5W 200 ML IV SCH (08:55)
[2017-09-11] MEDS ORDERED: MAGNESIUM HYDROXIDE SUSP 30 ML UDC PO PRN (09:00)
[2017-09-11] MEDS: METOPROLOL TARTRATE 25 MG TAB PO SCH ×2 (09:08→21:25)
--- NOTE | 2017-09-11 09:11 | Progress Note ---
Subjective Date of Service: Sep 11, 2017. (Paula Scales CRNP) Subjective Pt evaluation today including: conversation w/ patient, chart review, lab review Voiding: solano catheter in place (patent, draining clear, yellow urine ) 62 yo male with bladder cancer s/p stent exchange. Pt c/o bladder pain and spasms this morning. C/o constipation to the nursing staff as well. He is upset as he feels no one knows what is going on with his care, and was told there is to be a urology meeting today to discuss potential procedure. He is pending port placement to start chemo, but this is on hold by general surgery in the setting of positive blood cultures. (Paula Scales CRNP) Pt evaluation today including: conversation w/ patient Constipation with bloating and bladder pains. Improved slightly. On agressive bowel reg. No BM since admit. No fevers or chills. (Robbie Vaca, D.O.) Problem List Medical Problems: (1) Bladder neoplasm Status: Acute (2) Constipation Status: Acute (3) Intractable abdominal pain Status: Acute (4) UTI (urinary tract infection) Status: Acute (Paula Scales CRNP) Review of Systems Constitutional: No fever, No chills Respiratory: No shortness of breath Cardiac: No chest pain Abdomen: No pain, No nausea, No vomiting Male : No hematuria Heme: No abnormal bleeding/bruising (Paula Scales CRNP) All Other Systems: Reviewed and Negative (Robbie Vaca, D.O.) Objective Vital Signs Date Time Temp Pulse Resp B/P (MAP) Pulse Ox O2 Delivery O2 Flow Rate FiO2 09/11/17 07:33 37.0 61 19 126/83 (97) 96 Room Air 09/10/17 23:20 Room Air 09/10/17 23:07 36.9 56 18 118/76 (90) 95 Room Air 09/10/17 16:37 37.5 62 16 134/78 (96) 95 Room Air 09/10/17 16:29 36.6 65 20 95 09/10/17 16:00 Room Air 09/10/17 16:00 Room Air 09/10/17 12:43 36.6 65 20 122/71 (88) 95 Room Air 09/10/17 12:00 Room Air (Paula Scales CRNP) Physical Exam General Appearance: no apparent distress Eyes: normal inspection ENT: hearing grossly normal Neck: no JVD Respiratory/Chest: no respiratory distress, no accessory muscle use Cardiovascular: no JVD Extremities: normal inspection Neurologic/Psychiatric: alert, normal mood/affect, oriented x 3 Skin: normal color (Paula Scales CRNP) General Appearance: WD/WN, no apparent distress Respiratory/Chest: no respiratory distress, no accessory muscle use Cardiovascular: regular rate, rhythm Abdomen: soft Extremities: non-tender, normal inspection Neurologic/Psychiatric: pmo manager II-XII nml as tested, alert, normal mood/affect Skin: normal color, warm/dry (Robbie Vaca D.OMark) Laboratory Results Last 24 Hours Test 09/10/17 10:43 09/10/17 16:27 09/10/17 16:47 09/10/17 20:42 Bedside Glucose 146 mg/dl 151 mg/dl 138 mg/dl 197 mg/dl Test 09/11/17 08:10 Bedside Glucose 119 mg/dl (Paula Scales CRNP) Assessment and Plan POD # 4 s/p right stent exchange AFVSS. Dr. Vaca to see the pt later today to discuss terminologist plan of care regarding the pt's bladder cancer. Port placement on hold per general surgery. Will continue to follow along with primary service. Continued [facility] stay due to: inadequate oral pain control, multiple IV medications needed Discharge planning: home (Paula Scales CRNP) 1 Acute Pyelo 2. Obst Right Ureter 3. T3 Bladder Cancer 4. Constipation with chronic issues. Plan to compete antibiotics. Will likely need approx 2 weeks of abx. Needs to have port placed. Patient is expected to start chemotherapy soon. May need to check with oncology and determine if anything would need done while inpatient. Patient was having bowel issues worked up. Major constipation issues. (Robbie Vaca D.OMark)
[2017-09-11] MEDS: PHENAZOPYRIDINE HCL 200 MG TAB PO PRN (09:52)
[2017-09-11] MEDS ORDERED: OXYBUTYNIN CHLORIDE 5 MG TAB PO PRN (10:00)
[2017-09-11] MEDS ORDERED: PHENAZOPYRIDINE HCL 200 MG TAB PO PRN (10:00)
[2017-09-11] MEDS ORDERED: BISACODYL 10 MG SUPP PR PRN (10:15)
[2017-09-11] MEDS: HYDROmorphone INJ 1 MG/ML SYR IV PRN (11:28)
--- NOTE | 2017-09-11 12:52 | Hospitalist Progress Note ---
Hospitalist Progress Note Date of Service Sep 11, 2017. (Mana Haas PA-C) Subjective Pt evaluation today including: conversation w/ patient, physical exam, chart review, lab review, review of studies, review of inpatient medication list Patient seen and evaluated. Patient is agitated this morning. States his pain is worse because he isn't moving his bowel. He is on multiple medications for this and will add a suppository. Could consider enema if not response. Did take MOM this AM. States pain is all in the suprapubic region. Constitutional: No fever, No chills Respiratory: No shortness of breath Cardiovascular: No chest pain Abdomen: + pain (suprapubic), + constipation, No nausea, No vomiting, No diarrhea Musculoskeletal: No swelling, No calf pain Heme: No abnormal bleeding/bruising (Mana Haas, IVELISSEC) Medications Current Inpatient Medications Medications (Trade) Dose Ordered Sig/Young Route Start Time Stop Time Status Last Admin Dose Admin Aspirin (Ecotrin Tab) 81 mg QAM PO 09/08/17 09:00 10/08/17 08:59 09/11/17 08:37 81 MG Atorvastatin Calcium (Lipitor Tab) 80 mg QPM PO 09/07/17 21:00 10/07/17 20:59 09/10/17 20:23 80 MG Docusate Sodium (coLACE CAP) 100 mg BID PRN PO 09/07/17 14:45 10/07/17 14:44 Gabapentin (Neurontin Cap) 300 mg TID PO 09/07/17 14:00 10/07/17 13:59 09/11/17 08:37 300 MG Lisinopril (Zestril Tab) 5 mg QAM PO 09/08/17 09:00 10/08/17 08:59 Future Hold 09/09/17 08:08 5 MG Oxycodone HCl (Roxicodone Immediate Rel Tab) 10 mg Q4H PRN PO 09/07/17 12:30 09/21/17 12:29 09/11/17 08:11 10 MG Tamsulosin HCl (Flomax Cap) 0.4 mg DAILY PO 09/08/17 09:00 10/08/17 08:59 09/11/17 08:37 0.4 MG Albuterol (Ventolin Hfa Inhaler) 2 puffs DAILY PRN INH 09/07/17 12:30 10/07/17 12:29 Citalopram Hydrobromide (celeXA TAB) 10 mg DAILY PO 09/08/17 09:00 10/08/17 08:59 09/11/17 08:37 10 MG Ondansetron HCl (Zofran Inj) 4 mg Q6H PRN IV. 09/07/17 12:30 10/07/17 12:29 Docusate Sodium (coLACE CAP) 100 mg BID PO 09/07/17 21:00 10/07/17 20:59 09/11/17 08:40 100 MG Polyethylene (Miralax Powder Packet) 17 gm DAILY PRN PO 09/07/17 12:30 10/07/17 12:29 Famotidine (Pepcid Tab) 20 mg BID PRN PO 09/07/17 12:30 10/07/17 12:29 Acetaminophen (Tylenol Tab) 650 mg Q6H PRN PO 09/07/17 12:30 10/07/17 12:29 09/08/17 01:32 650 MG Glucose (Glucose 40% Gel) 15-30 GRAMS 15 GRAMS... UD PRN PO 09/07/17 14:30 10/07/17 14:29 Glucose (Glucose Chew Tab) 4-8 Tablets 4 Tabl... UD PRN PO 09/07/17 14:30 10/07/17 14:29 Dextrose (Dextrose 50% 50ML Syringe) 25-50ML OF 50% DW IV FOR... UD PRN IV 09/07/17 14:30 10/07/17 14:29 Glucagon (Glucagon Inj) 1 mg UD PRN SQ 09/07/17 14:30 10/07/17 14:29 Insulin Aspart (novoLOG ASPART) SLIDING SCALE G... ACHS SC 09/08/17 16:15 10/08/17 16:14 09/10/17 20:54 1 UNITS Hydromorphone HCl (Dilaudid Inj) 1.5 mg Q4H PRN IV 09/08/17 14:00 09/22/17 13:59 09/11/17 11:28 1.5 MG Psyllium Hydrophilic Mucilloid (Metamucil Powder) 1 pkt TID PO 09/08/17 16:00 10/08/17 15:59 09/11/17 08:40 1 PKT Ketorolac Tromethamine (Toradol Inj) 30 mg Q6H PRN IV 09/08/17 17:15 09/13/17 17:14 09/11/17 10:43 30 MG Metoprolol Tartrate (Lopressor Tab) 12.5 mg Q12 PO 09/09/17 21:00 10/07/17 20:59 09/11/17 09:08 12.5 MG Enoxaparin Sodium (Lovenox Inj) 40 mg QAM SQ 09/10/17 09:00 10/10/17 08:59 09/11/17 08:38 40 MG Senna (Senokot Tab) 17.2 mg QAM PO 09/11/17 09:00 10/11/17 08:59 09/11/17 08:07 17.2 MG Magnesium Hydroxide (Milk Of Magnesia Susp) 30 ml Q6H PRN PO 09/11/17 09:00 10/11/17 08:59 09/11/17 09:12 30 ML Phenazopyridine HCl (Pyridium Tab) 200 mg TID PRN PO 09/11/17 10:00 10/11/17 09:59 Oxybutynin Chloride (Ditropan Tab) 5 mg TID PRN PO 09/11/17 10:00 10/11/17 09:59 Bisacodyl (Dulcolax Supp) 10 mg DAILY PRN [place] 09/11/17 10:15 10/11/17 10:14 Ciprofloxacin (Cipro Tab) 500 mg Q12H PO 09/11/17 21:00 09/25/17 20:59 (Mana Haas, COLETTE) Objective Vital Signs Date Time Temp Pulse Resp B/P (MAP) Pulse Ox O2 Delivery O2 Flow Rate FiO2 09/11/17 07:40 Room Air 09/11/17 07:33 37.0 61 19 126/83 (97) 96 Room Air 09/10/17 23:20 Room Air 09/10/17 23:07 36.9 56 18 118/76 (90) 95 Room Air 09/10/17 16:37 37.5 62 16 134/78 (96) 95 Room Air 09/10/17 16:29 36.6 65 20 95 09/10/17 16:00 Room Air 09/10/17 16:00 Room Air (Mana Haas PA-C) Physical Exam General Appearance: WD/WN, no apparent distress Eyes: sclerae normal ENT: hearing grossly normal Neck: no JVD Respiratory/Chest: lungs clear, normal breath sounds, no respiratory distress, no accessory muscle use Cardiovascular: regular rate, rhythm, no gallop, no murmur Abdomen: normal bowel sounds, + distended (mild distension ), + tenderness ( suprapubic with minimal palpation however no guarding or rigidity) Extremities: no pedal edema Neurologic/Psychiatric: alert Skin: normal color, warm/dry (Mana Haas PA-C) Laboratory Results Last 24 Hours Test 09/10/17 16:27 09/10/17 16:47 09/10/17 20:42 09/11/17 08:10 Bedside Glucose 151 mg/dl 138 mg/dl 197 mg/dl 119 mg/dl Test 09/11/17 12:05 Bedside Glucose 124 mg/dl (Mana Haas PA-C) Assessment and Plan 62yo male sepsis from uti poa, previous bladder cancer Sepsis with Klebsiella Septicemia 2/2 Complicated/Hernandez Associated UTI: Possible R Pyelonephritis - Repeat BCx with NGTD - Ciprofloxacin 500 mg BID to complete 14 day course - continue until 09/20 R-Sided Ureteral Obstruction 2/2 Bladd CA S/P Stente Exchange - Ditropan 5 mg TID PRN and Pyridium 200 mg TID PRN - Continue Roxicodone, Toradol, and Dilaudid - Urology following - plan to complete Abx - pending port placement and chemotherapy in near future CAD: - ASA 81 mg daily, Lipitor 80 mg daily Chronic Pain with Acute Pain: - As above T2DM: - Can continue Prandin, Januvia, Glimepiride, and Metformin with SSI coverage if necessary Constipation: - Senna, Metamucil, Colace, Miralax/MOM, and Dulcolax supp. HTN: - Lisinopril is on hold - continue reduced Lopressor dose DVT Prophylaxis: Lovenox 40 mg SC daily Code Status: - Will need pain control and if tolerating oral Abx possible D/C next 1-2 days Continued [facility] stay due to: multiple IV medications needed Discharge planning: home (Mana Haas, PA-C) PA Physician Supervision Note: I interviewed and examined the patient. Discussed with Mana Haas PAC and agree with findings and plan as documented in the note. Any exceptions or clarifications are listed here: None That the majority my visit counseling this patient today as he was very irate about his Gen. hospital stay I spent 25 minutes [id number] in the room and at least 10 minutes reviewing his chart and discussing with my PA prior to seeing him. His complaint really revolve around his lack of control of the situation and his feeling that things have been delayed due to one thing or another. I explained to him that I'm trying to coordinate at least placement of his a port prior to leaving so they can start chemotherapy as soon as possible. He is agreeable to speaking to Dr. Natarajan regarding a port placement after a week's worth of antibiotic treatment. He will however continue his antibiotic treatment subsequent to the port as recommended by urology for 14 day total treatment. Vital signs are stable side physical exam he appears robust he still having gross hematuria his heart is regular lungs are clear Klebsiella septicemia felt to be of urinary source with recent diagnosis of a urothelial malignancy and chronic diabetes The sensitivities are returned patient will receive one week of therapy he does have subsequent negative blood cultures and a port will be placed we will complete 2 weeks of antibiotics as mentioned in urology's notes and coordinate with oncology for continued treatment Documented By: Ranjith Seay (Ranjith Seay M.D.)
[2017-09-11 15:29] VITALS: BP 117/69; PULSE 60; TEMP 36.7; O2SAT 97
--- NOTE | 2017-09-11 16:03 | Medical Consult ---
Consultation Date of Consultation: Sep 11, 2017. Attending Physician: Ranjith Seay M.D. Reason for Consultation: access port History of Present Illness recently adm w/ sepsis secondary to ureteral obstr- stent placed. pt had + blood cult 09/07- on IV atbx since w/ neg bld cult 09/09. needs port for continued treatment of bladder cancer. Past Medical/Surgical History Medical Problems: (1) Bladder neoplasm Status: Acute (2) Constipation Status: Acute (3) Intractable abdominal pain Status: Acute (4) UTI (urinary tract infection) Status: Acute Family History Cancer Diabetes mellitus Social History Smoking Status: Former Smoker Drug Use: none Marital Status: Housing Status: lives with significant other Occupation Status: retired Allergies Coded Allergies: No Known Allergies (Unverified , 09/07/17) Current Inpatient Medications Current Inpatient Medications Medications (Trade) Dose Ordered Sig/Young Route Start Time Stop Time Status Last Admin Dose Admin Aspirin (Ecotrin Tab) 81 mg QAM PO 09/08/17 09:00 10/08/17 08:59 09/11/17 08:37 81 MG Atorvastatin Calcium (Lipitor Tab) 80 mg QPM PO 09/07/17 21:00 10/07/17 20:59 09/10/17 20:23 80 MG Docusate Sodium (coLACE CAP) 100 mg BID PRN PO 09/07/17 14:45 10/07/17 14:44 Gabapentin (Neurontin Cap) 300 mg TID PO 09/07/17 14:00 10/07/17 13:59 09/11/17 13:42 300 MG Lisinopril (Zestril Tab) 5 mg QAM PO 09/08/17 09:00 10/08/17 08:59 Future Hold 09/09/17 08:08 5 MG Oxycodone HCl (Roxicodone Immediate Rel Tab) 10 mg Q4H PRN PO 09/07/17 12:30 09/21/17 12:29 09/11/17 08:11 10 MG Tamsulosin HCl (Flomax Cap) 0.4 mg DAILY PO 09/08/17 09:00 10/08/17 08:59 09/11/17 08:37 0.4 MG Albuterol (Ventolin Hfa Inhaler) 2 puffs DAILY PRN INH 09/07/17 12:30 10/07/17 12:29 Citalopram Hydrobromide (celeXA TAB) 10 mg DAILY PO 09/08/17 09:00 10/08/17 08:59 09/11/17 08:37 10 MG Ondansetron HCl (Zofran Inj) 4 mg Q6H PRN IV. 09/07/17 12:30 10/07/17 12:29 Docusate Sodium (coLACE CAP) 100 mg BID PO 09/07/17 21:00 10/07/17 20:59 09/11/17 08:40 100 MG Polyethylene (Miralax Powder Packet) 17 gm DAILY PRN PO 09/07/17 12:30 10/07/17 12:29 Famotidine (Pepcid Tab) 20 mg BID PRN PO 09/07/17 12:30 10/07/17 12:29 Acetaminophen (Tylenol Tab) 650 mg Q6H PRN PO 09/07/17 12:30 10/07/17 12:29 09/08/17 01:32 650 MG Glucose (Glucose 40% Gel) 15-30 GRAMS 15 GRAMS... UD PRN PO 09/07/17 14:30 10/07/17 14:29 Glucose (Glucose Chew Tab) 4-8 Tablets 4 Tabl... UD PRN PO 09/07/17 14:30 10/07/17 14:29 Dextrose (Dextrose 50% 50ML Syringe) 25-50ML OF 50% DW IV FOR... UD PRN IV 09/07/17 14:30 10/07/17 14:29 Glucagon (Glucagon Inj) 1 mg UD PRN SQ 09/07/17 14:30 10/07/17 14:29 Insulin Aspart (novoLOG ASPART) SLIDING SCALE G... ACHS SC 09/08/17 16:15 10/08/17 16:14 09/10/17 20:54 1 UNITS Hydromorphone HCl (Dilaudid Inj) 1.5 mg Q4H PRN IV 09/08/17 14:00 09/22/17 13:59 09/11/17 11:28 1.5 MG Psyllium Hydrophilic Mucilloid (Metamucil Powder) 1 pkt TID PO 09/08/17 16:00 10/08/17 15:59 09/11/17 08:40 1 PKT Ketorolac Tromethamine (Toradol Inj) 30 mg Q6H PRN IV 09/08/17 17:15 09/13/17 17:14 09/11/17 10:43 30 MG Metoprolol Tartrate (Lopressor Tab) 12.5 mg Q12 PO 09/09/17 21:00 10/07/17 20:59 09/11/17 09:08 12.5 MG Enoxaparin Sodium (Lovenox Inj) 40 mg QAM SQ 09/10/17 09:00 10/10/17 08:59 09/11/17 08:38 40 MG Senna (Senokot Tab) 17.2 mg QAM PO 09/11/17 09:00 10/11/17 08:59 09/11/17 08:07 17.2 MG Magnesium Hydroxide (Milk Of Magnesia Susp) 30 ml Q6H PRN PO 09/11/17 09:00 10/11/17 08:59 09/11/17 09:12 30 ML Phenazopyridine HCl (Pyridium Tab) 200 mg TID PRN PO 09/11/17 10:00 10/11/17 09:59 Oxybutynin Chloride (Ditropan Tab) 5 mg TID PRN PO 09/11/17 10:00 10/11/17 09:59 Bisacodyl (Dulcolax Supp) 10 mg DAILY PRN [place] 09/11/17 10:15 10/11/17 10:14 Ciprofloxacin (Cipro Tab) 500 mg Q12H PO 09/11/17 21:00 09/25/17 20:59 Repaglinide (Prandin Tab) 0.5 mg QAM PO 09/12/17 09:00 10/12/17 08:59 Sitagliptin Phosphate (Januvia Tab) 100 mg QAM PO 09/12/17 09:00 10/12/17 08:59 Glimepiride (Amaryl Tab) 8 mg DAILY@0830 PO 09/12/17 08:30 10/12/17 08:29 Non-Formulary Medication (Metformin Hcl (Glucophage Er)) 750 mg BID PO 09/11/17 21:00 10/11/17 20:59 UNV Physical Exam Date Time Temp Pulse Resp B/P (MAP) Pulse Ox O2 Delivery O2 Flow Rate FiO2 09/11/17 15:29 36.7 60 18 117/69 (85) 97 Room Air 09/11/17 07:40 Room Air 09/11/17 07:33 37.0 61 19 126/83 (97) 96 Room Air 09/10/17 23:20 Room Air 09/10/17 23:07 36.9 56 18 118/76 (90) 95 Room Air 09/10/17 16:37 37.5 62 16 134/78 (96) 95 Room Air 09/10/17 16:29 36.6 65 20 95 09/10/17 16:00 Room Air 09/10/17 16:00 Room Air General Appearance: no apparent distress Neck: supple Respiratory/Chest: no respiratory distress Neurologic/Psych: alert Skin: normal color Laboratory Results Last 24 Hours Test 09/10/17 16:27 09/10/17 16:47 09/10/17 20:42 09/11/17 08:10 Bedside Glucose 151 mg/dl 138 mg/dl 197 mg/dl 119 mg/dl Test 09/11/17 12:05 Bedside Glucose 124 mg/dl Assessment & Plan 09/11/17- pt is scheduled for access port on 09/13 cont IV atbx - can d/c Wed after port placed if he cont to progress
[2017-09-11] MEDS ORDERED: METFORMIN HCL 750 MG PO SCH (21:00)
[2017-09-11] MEDS: ATORVASTATIN 40 MG TAB PO SCH (21:24)
[2017-09-11] MEDS: CIPROFLOXACIN 500 MG TAB PO SCH (21:24)
[2017-09-11 23:15] VITALS: BP 108/68; PULSE 66; TEMP 37.3; O2SAT 93
[2017-09-12] MEDS: KETOROLAC TROMETHAMINE 30 MG/ML VIAL IV PRN ×3 (07:34→23:29)
[2017-09-12] MEDS: OXYCODONE HCL IR 5 MG TAB (IMMEDIATE RELEASE) PO PRN ×4 (07:45→21:36)
[2017-09-12 07:49] VITALS: BP 129/74; PULSE 65; TEMP 37.1; O2SAT 96
[2017-09-12] MEDS: INSULIN ASPART 100 UNITS/ML 3 ML PEN SC SCH ×4 (08:00→21:00)
[2017-09-12] MEDS ORDERED: GLIMEPIRIDE 2 MG TAB PO SCH (08:30)
[2017-09-12] MEDS: CITALOPRAM 20 MG TAB PO SCH (08:47)
[2017-09-12] MEDS: CIPROFLOXACIN 500 MG TAB PO SCH ×2 (08:47→21:31)
[2017-09-12] MEDS: TAMSULOSIN HCL 0.4 MG CAP PO SCH (08:48)
[2017-09-12] MEDS: DOCUSATE SODIUM 100 MG CAP PO SCH ×2 (08:48→21:31)
[2017-09-12] MEDS: ASPIRIN 81 MG ECTAB PO SCH (08:48)
[2017-09-12] MEDS: METOPROLOL TARTRATE 25 MG TAB PO SCH ×2 (08:50→21:32)
[2017-09-12] MEDS: GABAPENTIN 300 MG CAP PO SCH ×3 (08:51→21:31)
[2017-09-12] MEDS: PSYLLIUM 58.6% PWD PACK S\\F PO SCH ×3 (08:51→18:19)
[2017-09-12] MEDS: SENNA 8.6 MG TAB PO SCH (08:53)
[2017-09-12] MEDS: ENOXAPARIN 40 MG/0.4 ML SYR SQ SCH (08:54)
[2017-09-12] MEDS ORDERED: SITAGLIPTIN 100 MG TAB PO SCH (09:00)
[2017-09-12] MEDS ORDERED: REPAGLINIDE 1 MG TAB PO SCH (09:00)
--- NOTE | 2017-09-12 09:01 | Hospitalist Progress Note ---
Hospitalist Progress Note Date of Service Sep 12, 2017. Subjective Pt evaluation today including: conversation w/ patient, physical exam, chart review, lab review, review of studies, review of inpatient medication list Medications Current Inpatient Medications Medications (Trade) Dose Ordered Sig/Young Route Start Time Stop Time Status Last Admin Dose Admin Aspirin (Ecotrin Tab) 81 mg QAM PO 09/08/17 09:00 10/08/17 08:59 09/12/17 08:48 81 MG Atorvastatin Calcium (Lipitor Tab) 80 mg QPM PO 09/07/17 21:00 10/07/17 20:59 09/11/17 21:24 80 MG Docusate Sodium (coLACE CAP) 100 mg BID PRN PO 09/07/17 14:45 10/07/17 14:44 Gabapentin (Neurontin Cap) 300 mg TID PO 09/07/17 14:00 10/07/17 13:59 09/12/17 08:51 300 MG Lisinopril (Zestril Tab) 5 mg QAM PO 09/08/17 09:00 10/08/17 08:59 Future Hold 09/09/17 08:08 5 MG Oxycodone HCl (Roxicodone Immediate Rel Tab) 10 mg Q4H PRN PO 09/07/17 12:30 09/21/17 12:29 09/12/17 07:45 10 MG Tamsulosin HCl (Flomax Cap) 0.4 mg DAILY PO 09/08/17 09:00 10/08/17 08:59 09/12/17 08:48 0.4 MG Albuterol (Ventolin Hfa Inhaler) 2 puffs DAILY PRN INH 09/07/17 12:30 10/07/17 12:29 Citalopram Hydrobromide (celeXA TAB) 10 mg DAILY PO 09/08/17 09:00 10/08/17 08:59 09/12/17 08:47 10 MG Ondansetron HCl (Zofran Inj) 4 mg Q6H PRN IV. 09/07/17 12:30 10/07/17 12:29 Docusate Sodium (coLACE CAP) 100 mg BID PO 09/07/17 21:00 10/07/17 20:59 09/12/17 08:48 100 MG Polyethylene (Miralax Powder Packet) 17 gm DAILY PRN PO 09/07/17 12:30 10/07/17 12:29 Famotidine (Pepcid Tab) 20 mg BID PRN PO 09/07/17 12:30 10/07/17 12:29 Acetaminophen (Tylenol Tab) 650 mg Q6H PRN PO 09/07/17 12:30 10/07/17 12:29 09/08/17 01:32 650 MG Glucose (Glucose 40% Gel) 15-30 GRAMS 15 GRAMS... UD PRN PO 09/07/17 14:30 10/07/17 14:29 Glucose (Glucose Chew Tab) 4-8 Tablets 4 Tabl... UD PRN PO 09/07/17 14:30 10/07/17 14:29 Dextrose (Dextrose 50% 50ML Syringe) 25-50ML OF 50% DW IV FOR... UD PRN IV 09/07/17 14:30 10/07/17 14:29 Glucagon (Glucagon Inj) 1 mg UD PRN SQ 09/07/17 14:30 10/07/17 14:29 Insulin Aspart (novoLOG ASPART) SLIDING SCALE G... ACHS SC 09/08/17 16:15 10/08/17 16:14 09/11/17 21:28 1 UNITS Hydromorphone HCl (Dilaudid Inj) 1.5 mg Q4H PRN IV 09/08/17 14:00 09/22/17 13:59 09/11/17 11:28 1.5 MG Psyllium Hydrophilic Mucilloid (Metamucil Powder) 1 pkt TID PO 09/08/17 16:00 10/08/17 15:59 09/12/17 08:51 1 PKT Ketorolac Tromethamine (Toradol Inj) 30 mg Q6H PRN IV 09/08/17 17:15 09/13/17 17:14 09/12/17 07:34 30 MG Metoprolol Tartrate (Lopressor Tab) 12.5 mg Q12 PO 09/09/17 21:00 10/07/17 20:59 09/12/17 08:50 12.5 MG Enoxaparin Sodium (Lovenox Inj) 40 mg QAM SQ 09/10/17 09:00 10/10/17 08:59 09/12/17 08:54 40 MG Senna (Senokot Tab) 17.2 mg QAM PO 09/11/17 09:00 10/11/17 08:59 09/12/17 08:53 17.2 MG Magnesium Hydroxide (Milk Of Magnesia Susp) 30 ml Q6H PRN PO 09/11/17 09:00 10/11/17 08:59 09/11/17 09:12 30 ML Phenazopyridine HCl (Pyridium Tab) 200 mg TID PRN PO 09/11/17 10:00 10/11/17 09:59 Oxybutynin Chloride (Ditropan Tab) 5 mg TID PRN PO 09/11/17 10:00 10/11/17 09:59 Bisacodyl (Dulcolax Supp) 10 mg DAILY PRN [place] 09/11/17 10:15 10/11/17 10:14 09/11/17 16:01 10 MG Ciprofloxacin (Cipro Tab) 500 mg Q12H PO 09/11/17 21:00 09/25/17 20:59 09/12/17 08:47 500 MG Repaglinide (Prandin Tab) 0.5 mg QAM PO 09/12/17 09:00 10/12/17 08:59 Future Hold 09/12/17 08:52 0.5 MG Sitagliptin Phosphate (Januvia Tab) 100 mg QAM PO 09/12/17 09:00 10/12/17 08:59 Future Hold 09/12/17 08:49 100 MG Glimepiride (Amaryl Tab) 8 mg DAILY@0830 PO 09/12/17 08:30 10/12/17 08:29 Future Hold 09/12/17 08:46 8 MG Miscellaneous Information (Order Awaiting Action) 1 ea QS N/A 09/12/17 00:00 10/12/17 00:00 Future Hold Objective Vital Signs Date Time Temp Pulse Resp B/P (MAP) Pulse Ox O2 Delivery O2 Flow Rate FiO2 09/12/17 07:49 37.1 65 18 129/74 (92) 96 Room Air 09/12/17 07:30 Room Air 09/11/17 23:25 Room Air 09/11/17 23:15 37.3 66 16 108/68 (81) 93 Room Air 09/11/17 16:00 Room Air 09/11/17 15:29 36.7 60 18 117/69 (85) 97 Room Air Laboratory Results Last 24 Hours Test 09/11/17 12:05 09/11/17 16:55 09/11/17 20:44 09/12/17 08:04 Bedside Glucose 124 mg/dl 114 mg/dl 183 mg/dl 130 mg/dl Assessment and Plan 62yo male sepsis from uti poa, previous bladder cancer Sepsis with Klebsiella Septicemia 2/2 Complicated/Hernandez Associated UTI: Possible R Pyelonephritis -IMPROVING - Repeat BCx with NGTD - Ciprofloxacin 500 mg BID to complete 14 day course - continue until 09/20 R-Sided Ureteral Obstruction 2/2 Bladder CA S/P Stent Exchange - Ditropan 5 mg TID PRN and Pyridium 200 mg TID PRN - Continue Roxicodone, Toradol, and Dilaudid - Urology following - plan to complete Abx - pending port placement and chemotherapy in near future - General Surgery following - plan for port placement on 09/13 CAD: - ASA 81 mg daily, Lipitor 80 mg daily Chronic Pain with Acute Pain: - As above T2DM: - Will hold oral antidiabetics later today (Prandin, Januvia, Glimepiride, and Metformin) due to NPO at midnight and cover with SSI Constipation: - Had 2 BMs yesterday - will need good bowel regimen on D/C given pain medication - Senna, Metamucil, Colace, Miralax/MOM, and Dulcolax supp. HTN: - Lisinopril is on hold - continue reduced Lopressor dose DVT Prophylaxis: Lovenox 40 mg SC daily Code Status: FULL RESUSCITATION Disposition: Port placement on 09/13 - possible D/C after Continued [facility] stay due to: other (port placement) Discharge planning: home with home health
--- NOTE | 2017-09-12 09:05 | Progress Note ---
Subjective Date of Service: Sep 12, 2017. Subjective Pt evaluation today including: conversation w/ patient, chart review, lab review Voiding: solano catheter in place (patent, draining clear, yellow urine ) 62 yo male with bladder cancer. Pt reports he is feeling better this morning. BM x 2 yesterday. Continues to have some bladder spasms. Pending port placement by Dr. Natarajan tomorrow. Problem List Medical Problems: (1) Bladder neoplasm Status: Acute (2) Constipation Status: Acute (3) Intractable abdominal pain Status: Acute (4) UTI (urinary tract infection) Status: Acute Review of Systems Constitutional: No fever, No chills Respiratory: No shortness of breath Cardiac: No chest pain Abdomen: No pain, No nausea, No vomiting Male : No hematuria Heme: No abnormal bleeding/bruising Objective Vital Signs Date Time Temp Pulse Resp B/P (MAP) Pulse Ox O2 Delivery O2 Flow Rate FiO2 09/12/17 07:49 37.1 65 18 129/74 (92) 96 Room Air 09/12/17 07:30 Room Air 09/11/17 23:25 Room Air 09/11/17 23:15 37.3 66 16 108/68 (81) 93 Room Air 09/11/17 16:00 Room Air 09/11/17 15:29 36.7 60 18 117/69 (85) 97 Room Air Physical Exam General Appearance: no apparent distress Eyes: normal inspection ENT: hearing grossly normal Neck: no JVD Respiratory/Chest: no respiratory distress, no accessory muscle use Cardiovascular: no JVD Extremities: normal inspection Neurologic/Psychiatric: alert, normal mood/affect, oriented x 3 Skin: normal color Laboratory Results Last 24 Hours Test 09/11/17 12:05 09/11/17 16:55 09/11/17 20:44 09/12/17 08:04 Bedside Glucose 124 mg/dl 114 mg/dl 183 mg/dl 130 mg/dl Assessment and Plan POD # 5 s/p right stent exchange AFVSS. Continue abx for 14 days of therapy per Dr. Vaca. Plan for port placement tomorrow. Will consult oncology while inpatient to set up initiation of chemo TOSIN. Will continue to follow along with primary service. Continued [facility] stay due to: other (port placement) Discharge planning: home with home health
--- NOTE | 2017-09-12 09:40 | Oncology Consultation ---
Oncology/Heme Consultation Date of Consultation: Sep 12, 2017. Attending Physician: Ranjith Seay M.D. Reason for Consultation: History of bladder carcinoma History of Present Illness Mr. Anna is a 62-year-old gentleman with a history of myocardial infarction in early 2015. He was seen in our clinic recently. In the past he had had bladder pain and occasional hematuria. CT scan done in June of last year revealed an enhancing mass in the right superior lateral bladder wall. At [facility] a cystoscopy was done in July that revealed high-grade invasive urothelial carcinoma with muscularis propria invasion. He was seen in our clinic and plans were to begin systemic chemotherapy with MVA C. The patient was admitted now after a few days worth of fever and chills. He was found to have right hydronephrosis and a ureteral stent has been placed. Klebsiella has been grown in his urine from September 07. He currently seems to be doing well. He is afebrile. He is alert and oriented. Past Medical/Surgical History Medical Problems: (1) Bladder neoplasm Status: Acute (2) Constipation Status: Acute (3) Intractable abdominal pain Status: Acute (4) UTI (urinary tract infection) Status: Acute Family History Cancer Diabetes mellitus Social History Smoking Status: Former Smoker Drug Use: none Marital Status: Housing Status: lives with significant other Occupation Status: retired Allergies Coded Allergies: No Known Allergies (Unverified , 09/07/17) Home Medications Scheduled Aspirin (Aspirin Ec), 81 MG PO QAM Atorvastatin (Lipitor), 80 MG PO QPM Citalopram Hydrobromide (Citalopram Hydrobromide), 10 MG PO DAILY Gabapentin (Neurontin), 300 MG PO TID Glimepiride (Glimepiride), 8 MG PO DAILY Lisinopril (Zestril), 5 MG PO QAM Metformin Hcl (Glucophage Er), 750 MG PO BID Metoprolol Tartrate (Lopressor) (Lopressor), 25 MG PO Q12 Repaglinide (Prandin), 0.5 MG PO QAM Sitagliptin (Januvia), 100 MG PO QAM Tamsulosin Hcl (Flomax), 0.4 MG PO DAILY Scheduled PRN Albuterol Sulfate (Proair Respiclick), 2 PUFFS INH UD PRN for SOB/Wheezing Docusate Sodium (Colace), 100 MG PO BID PRN for Constipation Ondansetron Odt (Zofran Odt), 4 MG SL Q8 PRN for Nausea Oxybutynin Chloride (Ditropan), 5 MG PO TID PRN for Bladder pain Oxycodone Ir (Roxicodone Ir), 5-10 MG PO Q4H PRN for Severe Pain Phenazopyridine HCl (Pyridium), 200 MG PO TID PRN for Bladder pain Current Inpatient Medications Current Inpatient Medications Medications (Trade) Dose Ordered Sig/Young Route Start Time Stop Time Status Last Admin Dose Admin Aspirin (Ecotrin Tab) 81 mg QAM PO 09/08/17 09:00 10/08/17 08:59 09/12/17 08:48 81 MG Atorvastatin Calcium (Lipitor Tab) 80 mg QPM PO 09/07/17 21:00 10/07/17 20:59 09/11/17 21:24 80 MG Docusate Sodium (coLACE CAP) 100 mg BID PRN PO 09/07/17 14:45 10/07/17 14:44 Gabapentin (Neurontin Cap) 300 mg TID PO 09/07/17 14:00 10/07/17 13:59 09/12/17 08:51 300 MG Lisinopril (Zestril Tab) 5 mg QAM PO 09/08/17 09:00 10/08/17 08:59 Future Hold 09/09/17 08:08 5 MG Oxycodone HCl (Roxicodone Immediate Rel Tab) 10 mg Q4H PRN PO 09/07/17 12:30 09/21/17 12:29 09/12/17 07:45 10 MG Tamsulosin HCl (Flomax Cap) 0.4 mg DAILY PO 09/08/17 09:00 10/08/17 08:59 09/12/17 08:48 0.4 MG Albuterol (Ventolin Hfa Inhaler) 2 puffs DAILY PRN INH 09/07/17 12:30 10/07/17 12:29 Citalopram Hydrobromide (celeXA TAB) 10 mg DAILY PO 09/08/17 09:00 10/08/17 08:59 09/12/17 08:47 10 MG Ondansetron HCl (Zofran Inj) 4 mg Q6H PRN IV. 1/11/18 12:30 10/07/17 12:29 Docusate Sodium (coLACE CAP) 100 mg BID PO 09/07/17 21:00 10/07/17 20:59 09/12/17 08:48 100 MG Polyethylene (Miralax Powder Packet) 17 gm DAILY PRN PO 09/07/17 12:30 10/07/17 12:29 Famotidine (Pepcid Tab) 20 mg BID PRN PO 09/07/17 12:30 10/07/17 12:29 Acetaminophen (Tylenol Tab) 650 mg Q6H PRN PO 09/07/17 12:30 10/07/17 12:29 09/08/17 01:32 650 MG Glucose (Glucose 40% Gel) 15-30 GRAMS 15 GRAMS... UD PRN PO 09/07/17 14:30 10/07/17 14:29 Glucose (Glucose Chew Tab) 4-8 Tablets 4 Tabl... UD PRN PO 09/07/17 14:30 10/07/17 14:29 Dextrose (Dextrose 50% 50ML Syringe) 25-50ML OF 50% DW IV FOR... UD PRN IV 09/07/17 14:30 10/07/17 14:29 Glucagon (Glucagon Inj) 1 mg UD PRN SQ 09/07/17 14:30 10/07/17 14:29 Insulin Aspart (novoLOG ASPART) SLIDING SCALE G... ACHS SC 09/08/17 16:15 10/08/17 16:14 09/11/17 21:28 1 UNITS Hydromorphone HCl (Dilaudid Inj) 1.5 mg Q4H PRN IV 09/08/17 14:00 09/22/17 13:59 09/11/17 11:28 1.5 MG Psyllium Hydrophilic Mucilloid (Metamucil Powder) 1 pkt TID PO 09/08/17 16:00 10/08/17 15:59 09/12/17 08:51 1 PKT Ketorolac Tromethamine (Toradol Inj) 30 mg Q6H PRN IV 09/08/17 17:15 09/13/17 17:14 09/12/17 07:34 30 MG Metoprolol Tartrate (Lopressor Tab) 12.5 mg Q12 PO 09/09/17 21:00 10/07/17 20:59 09/12/17 08:50 12.5 MG Enoxaparin Sodium (Lovenox Inj) 40 mg QAM SQ 09/10/17 09:00 10/10/17 08:59 09/12/17 08:54 40 MG Senna (Senokot Tab) 17.2 mg QAM PO 09/11/17 09:00 10/11/17 08:59 09/12/17 08:53 17.2 MG Magnesium Hydroxide (Milk Of Magnesia Susp) 30 ml Q6H PRN PO 09/11/17 09:00 10/11/17 08:59 09/11/17 09:12 30 ML Phenazopyridine HCl (Pyridium Tab) 200 mg TID PRN PO 09/11/17 10:00 10/11/17 09:59 Oxybutynin Chloride (Ditropan Tab) 5 mg TID PRN PO 09/11/17 10:00 10/11/17 09:59 Bisacodyl (Dulcolax Supp) 10 mg DAILY PRN [place] 09/11/17 10:15 10/11/17 10:14 09/11/17 16:01 10 MG Ciprofloxacin (Cipro Tab) 500 mg Q12H PO 09/11/17 21:00 09/25/17 20:59 09/12/17 08:47 500 MG Repaglinide (Prandin Tab) 0.5 mg QAM PO 09/12/17 09:00 10/12/17 08:59 Future Hold 09/12/17 08:52 0.5 MG Sitagliptin Phosphate (Januvia Tab) 100 mg QAM PO 09/12/17 09:00 10/12/17 08:59 Future Hold 09/12/17 08:49 100 MG Glimepiride (Amaryl Tab) 8 mg DAILY@0830 PO 09/12/17 08:30 10/12/17 08:29 Future Hold 09/12/17 08:46 8 MG Miscellaneous Information (Order Awaiting Action) 1 ea QS N/A 09/12/17 00:00 10/12/17 00:00 Future Hold Review of Systems Constitutional: He reports a 30-40 pound weight loss over the past 6 months according to prior notes Eyes: Negative for event change of vision ENT: Negative for epistaxis, nasal discharge, sore throat, or deafness Cardiovascular: Negative for chest pain, palpitations, dizziness, diaphoresis Respiratory: Negative for new shortness of breath,hemoptysis, or purulent cough Gastrointestinal: Negative for diarrhea, hematemesis, melena, nausea, vomiting , or dyspepsia Integumentary (skin): Negative for rash or jaundice discoloration Genitourinary: Positive for dysuria Neurological: Negative for weakness, seizure activity, headache, or dizziness Lymphatic/Hematologic: Negative for petechiae, bleeding or new adenopathy Musculoskeletal: Negative for new joint or back pain Allergic/Immunologic: Negative for unusual rash or pruritis. Physical Exam Date Time Temp Pulse Resp B/P (MAP) Pulse Ox O2 Delivery O2 Flow Rate FiO2 09/12/17 07:49 37.1 65 18 129/74 (92) 96 Room Air 09/12/17 07:30 Room Air 09/11/17 23:25 Room Air 09/11/17 23:15 37.3 66 16 108/68 (81) 93 Room Air 09/11/17 16:00 Room Air 09/11/17 15:29 36.7 60 18 117/69 (85) 97 Room Air Constitutional: vitals are stable. Eyes: Eyes are BARBARA EOMI without conjuctival erythema or icterus. ENT: External examination was negative for masses. Neck: Negative for masses or palpable thyromegaly Respiratory: Lung sounds were generally clear bilaterally Cardiovascular: Heart was RRR without significant murmur, gallops aoe rubs Gastrointestinal: No palpable hepatic or splenomegaly. The abdomen was soft with normal bowel sounds. Lymphatic system: there was no palpable peripheral lymphadenopathy Musculoskeletal System: The musculoskeletal system seemed concordant with age. Skin: The skin was negative for jaundice. Neurologic exam: The exam was negative for any focal findings. Deep tendon reflexes were equal and symmetrical. Psychiatric exam: Was essentially negative with normal mood and effect. Extremities: Negative for edema Laboratory Results Last 24 Hours Test 09/11/17 12:05 09/11/17 16:55 09/11/17 20:44 09/12/17 08:04 Bedside Glucose 124 mg/dl 114 mg/dl 183 mg/dl 130 mg/dl Assessment & Plan Bladder carcinoma affecting the right bladder wall. This has led to hydronephrosis and a ureteral stent has been placed. Dr. Sims's plan was to give MVAC. I understand a port is scheduled to be placed tomorrow. The Klebsiella in his blood will need to be treated before beginning chemotherapy. An echocardiogram done recently showed normal LVEF. We will arrange for follow- up in our clinic in anticipation to begin the above systemic therapy mid to late next week at the earliest. Thank you.
[2017-09-12] MEDS: ACETAMINOPHEN 325 MG TAB PO PRN (11:01)
--- NOTE | 2017-09-12 13:48 | Hospitalist Progress Note ---
Hospitalist Progress Note Date of Service Sep 12, 2017. (Mana Haas PA-C) Subjective Pt evaluation today including: conversation w/ patient, conversation w/ family , physical exam, chart review, lab review, review of studies, review of inpatient medication list Patient seen and evaluated. No acute events overnight. Reporting pain is improving with bowel movements. However still has chronic pain with his cancer/stent and looks uncomfortable. Verbalizes no other complaints. Reports pain medications do help control his pain but does require a decent amount to control his pain. Plan for port placement tomorrow. Possible D/C tomorrow pending tolerance of procedure. Plans to follow with Onc next week for treatment. Constitutional: No fever, No chills Respiratory: No cough, No shortness of breath Cardiovascular: No chest pain Abdomen: + pain, No nausea, No vomiting, No diarrhea, No constipation Male : + problem reported (Hernandez placed without issue) Heme: No abnormal bleeding/bruising (Mana Haas, IVELISSEC) Medications Current Inpatient Medications Medications (Trade) Dose Ordered Sig/Young Route Start Time Stop Time Status Last Admin Dose Admin Aspirin (Ecotrin Tab) 81 mg QAM PO 09/08/17 09:00 10/08/17 08:59 09/12/17 08:48 81 MG Atorvastatin Calcium (Lipitor Tab) 80 mg QPM PO 09/07/17 21:00 10/07/17 20:59 09/11/17 21:24 80 MG Docusate Sodium (coLACE CAP) 100 mg BID PRN PO 09/07/17 14:45 10/07/17 14:44 Gabapentin (Neurontin Cap) 300 mg TID PO 09/07/17 14:00 10/07/17 13:59 09/12/17 13:39 300 MG Lisinopril (Zestril Tab) 5 mg QAM PO 09/08/17 09:00 10/08/17 08:59 Future Hold 09/09/17 08:08 5 MG Oxycodone HCl (Roxicodone Immediate Rel Tab) 10 mg Q4H PRN PO 09/07/17 12:30 09/21/17 12:29 09/12/17 11:44 10 MG Tamsulosin HCl (Flomax Cap) 0.4 mg DAILY PO 09/08/17 09:00 10/08/17 08:59 09/12/17 08:48 0.4 MG Albuterol (Ventolin Hfa Inhaler) 2 puffs DAILY PRN INH 09/07/17 12:30 10/07/17 12:29 Citalopram Hydrobromide (celeXA TAB) 10 mg DAILY PO 09/08/17 09:00 10/08/17 08:59 09/12/17 08:47 10 MG Ondansetron HCl (Zofran Inj) 4 mg Q6H PRN IV. 09/07/17 12:30 10/07/17 12:29 Docusate Sodium (coLACE CAP) 100 mg BID PO 09/07/17 21:00 10/07/17 20:59 09/12/17 08:48 100 MG Polyethylene (Miralax Powder Packet) 17 gm DAILY PRN PO 09/07/17 12:30 10/07/17 12:29 Famotidine (Pepcid Tab) 20 mg BID PRN PO 09/07/17 12:30 10/07/17 12:29 Acetaminophen (Tylenol Tab) 650 mg Q6H PRN PO 09/07/17 12:30 10/07/17 12:29 09/12/17 11:01 650 MG Glucose (Glucose 40% Gel) 15-30 GRAMS 15 GRAMS... UD PRN PO 09/07/17 14:30 10/07/17 14:29 Glucose (Glucose Chew Tab) 4-8 Tablets 4 Tabl... UD PRN PO 09/07/17 14:30 10/07/17 14:29 Dextrose (Dextrose 50% 50ML Syringe) 25-50ML OF 50% DW IV FOR... UD PRN IV 09/07/17 14:30 10/07/17 14:29 Glucagon (Glucagon Inj) 1 mg UD PRN SQ 09/07/17 14:30 10/07/17 14:29 Insulin Aspart (novoLOG ASPART) SLIDING SCALE G... ACHS SC 09/08/17 16:15 10/08/17 16:14 09/11/17 21:28 1 UNITS Hydromorphone HCl (Dilaudid Inj) 1.5 mg Q4H PRN IV 09/08/17 14:00 09/22/17 13:59 09/11/17 11:28 1.5 MG Psyllium Hydrophilic Mucilloid (Metamucil Powder) 1 pkt TID PO 09/08/17 16:00 10/08/17 15:59 09/12/17 13:38 1 PKT Ketorolac Tromethamine (Toradol Inj) 30 mg Q6H PRN IV 09/08/17 17:15 09/13/17 17:14 09/12/17 07:34 30 MG Metoprolol Tartrate (Lopressor Tab) 12.5 mg Q12 PO 09/09/17 21:00 10/07/17 20:59 09/12/17 08:50 12.5 MG Enoxaparin Sodium (Lovenox Inj) 40 mg QAM SQ 09/10/17 09:00 10/10/17 08:59 09/12/17 08:54 40 MG Senna (Senokot Tab) 17.2 mg QAM PO 09/11/17 09:00 10/11/17 08:59 09/12/17 08:53 17.2 MG Magnesium Hydroxide (Milk Of Magnesia Susp) 30 ml Q6H PRN PO 09/11/17 09:00 10/11/17 08:59 09/11/17 09:12 30 ML Phenazopyridine HCl (Pyridium Tab) 200 mg TID PRN PO 09/11/17 10:00 10/11/17 09:59 09/12/17 11:00 200 MG Oxybutynin Chloride (Ditropan Tab) 5 mg TID PRN PO 09/11/17 10:00 10/11/17 09:59 Bisacodyl (Dulcolax Supp) 10 mg DAILY PRN [place] 09/11/17 10:15 10/11/17 10:14 09/11/17 16:01 10 MG Ciprofloxacin (Cipro Tab) 500 mg Q12H PO 09/11/17 21:00 09/25/17 20:59 09/12/17 08:47 500 MG Repaglinide (Prandin Tab) 0.5 mg QAM PO 09/12/17 09:00 10/12/17 08:59 Future Hold 09/12/17 08:52 0.5 MG Sitagliptin Phosphate (Januvia Tab) 100 mg QAM PO 09/12/17 09:00 10/12/17 08:59 Future Hold 09/12/17 08:49 100 MG Glimepiride (Amaryl Tab) 8 mg DAILY@0830 PO 09/12/17 08:30 10/12/17 08:29 Future Hold 09/12/17 08:46 8 MG Miscellaneous Information (Order Awaiting Action) 1 ea QS N/A 09/12/17 00:00 10/12/17 00:00 Future Hold (Mana Haas PA-C) Objective Vital Signs Date Time Temp Pulse Resp B/P (MAP) Pulse Ox O2 Delivery O2 Flow Rate FiO2 09/12/17 07:49 37.1 65 18 129/74 (92) 96 Room Air 09/12/17 07:30 Room Air 09/11/17 23:25 Room Air 09/11/17 23:15 37.3 66 16 108/68 (81) 93 Room Air 09/11/17 16:00 Room Air 09/11/17 15:29 36.7 60 18 117/69 (85) 97 Room Air (Mana Haas PA-C) Physical Exam General Appearance: WD/WN, + mild distress (uncomfortable - pain) Eyes: sclerae normal ENT: hearing grossly normal Neck: supple, no JVD, trachea midline Respiratory/Chest: lungs clear, normal breath sounds, no respiratory distress, no accessory muscle use Cardiovascular: regular rate, rhythm, no gallop, no murmur Abdomen: normal bowel sounds, + tenderness Extremities: no pedal edema Neurologic/Psychiatric: alert Skin: normal color, warm/dry (Mana Haas PA-C) Laboratory Results Last 24 Hours Test 09/11/17 16:55 09/11/17 20:44 09/12/17 08:04 Bedside Glucose 114 mg/dl 183 mg/dl 130 mg/dl (Mana Haas PA-C) Assessment and Plan 62yo male sepsis from uti poa, previous bladder cancer Sepsis with Klebsiella Septicemia 2/2 Complicated/Hernandez Associated UTI: Possible R Pyelonephritis -IMPROVING - Repeat BCx with NGTD - Ciprofloxacin 500 mg BID to complete 14 day course - continue until 09/20 R-Sided Ureteral Obstruction 2/2 Bladder CA S/P Stent Exchange - Ditropan 5 mg TID PRN and Pyridium 200 mg TID PRN - Continue Roxicodone, Toradol, and Dilaudid - Urology following - plan to complete Abx - pending port placement and chemotherapy in near future - General Surgery following - plan for port placement on 09/13 CAD: - ASA 81 mg daily, Lipitor 80 mg daily Chronic Pain with Acute Pain: - As above T2DM: - Will hold oral antidiabetics later today (Prandin, Januvia, Glimepiride, and Metformin) due to NPO at midnight and cover with SSI Constipation: - Had 2 BMs yesterday - will need good bowel regimen on D/C given pain medication - Senna, Metamucil, Colace, Miralax/MOM, and Dulcolax supp. HTN: - Lisinopril is on hold - continue reduced Lopressor dose DVT Prophylaxis: Lovenox 40 mg SC daily Code Status: FULL RESUSCITATION Disposition: Port placement on 09/13 - possible D/C after pending procedure tolerance Continued [facility] stay due to: other (port placement on 09/13) Discharge planning: home with home health (possible vs self-care) (Mana Haas, PA-C) PA Physician Supervision Note: I interviewed and examined the patient. Discussed with Mana Haas PAC and agree with findings and plan as documented in the note. Any exceptions or clarifications are listed here: None Patient is in better spirits today did move his bowels scheduled for his a port placement on the , continue antibiotics and likely initiating chemotherapy 1 week from the after completing 2 weeks of antibiotics he continues to be followed by urology. Vital signs are stable as mentioned he did of a bowel movement Cardiac exam is regular lungs are clear abdomen normoactive bowel sounds and soft Sepsis from urinary source on presentation with recent urothelial tumor, plan for antibiotics to continue a port and chemotherapy being arranged however discussion of Hernandez catheter needs to be determined by urology Documented By: Ranjith Seay (Ranjith Seay M.D.)
--- NOTE | 2017-09-12 15:06 | Progress Note ---
Progress Note Date of Service Sep 12, 2017. Progress Note Pt is a 62 yo man who initially presented with urosepsis s/p stent exchange. Pt has been receiving IV antibiotic for his infection and currently doing better. Pt with h/o bladder cancer is scheduled to have infusaport placement tomorrow. Pt PMH significant for [place] in 11/2015 s/p IVY, HTN, XOL, DM2 with insulin and NIDIA using CPAP. Recent NATACHA done on 09/07/17 shows EF of 60-65% with gr 1 DD. Anesthesia plan was discussed with patient, all questions answered and consent was obtained. Pt was advised to be NPO after midnight except for no more than 15ml of water with meds in the morning.
[2017-09-12] MEDS ORDERED: LACTULOSE SYRUP 30 GM/45 ML UDP PO ONE (15:30)
[2017-09-12 15:36] VITALS: BP 112/67; PULSE 85; TEMP 36.9; O2SAT 99
[2017-09-12] MEDS ORDERED: METFORMIN HCL 750 MG PO SCH (21:00)
[2017-09-12] MEDS: ATORVASTATIN 40 MG TAB PO SCH (21:32)
[2017-09-12 21:37] VITALS: BP 151/74
[2017-09-12 23:15] VITALS: BP 146/65; PULSE 74; TEMP 37.3; O2SAT 93
[2017-09-12] MEDS ORDERED: NURSING VERBAL MED ORDER ONE (23:15)
[2017-09-13] VITALS (9 sets, daily range): BP systolic 100–130; BP diastolic 58–78; PULSE 62–83; TEMP 36.8–37.2; O2SAT 92–97; Ht 182.9 cm; Wt 106.5 kg
[2017-09-13] MEDS ORDERED: GLUCAGON FOR INJ 1 MG VIAL SQ STA (05:55)
[2017-09-13] MEDS ORDERED: INSULIN ASPART 100 UNITS/ML 3 ML PEN SC SCH ×2 (06:00→12:00)
[2017-09-13] MEDS ORDERED: DEXTROSE 50% 50 ML SYR IV ONE ×2 (06:00)
--- NOTE | 2017-09-13 06:19 | History & Physical Bridge Note ---
H&P Re-Evaluation Bridge Note: I have examined the patient, reviewed the History & Physical and in the interval since the performance of the History & Physical I have noted the following changes of clinical significance: No changes noted
[2017-09-13] MEDS ORDERED: DEXTROSE 5% 1000ML 1,000 ML IV SCH (06:30)
[2017-09-13] MEDS ORDERED: NURSING VERBAL MED ORDER ONE ×3 (06:30→13:15)
[2017-09-13] MEDS ORDERED: LIDOCAINE HCL 1% 20 ML VIAL ONE (07:57)
[2017-09-13] MEDS ORDERED: HEPARIN SOD (PORCINE) 1000 UNIT/ML 10 ML VIAL ONE (07:57)
[2017-09-13] MEDS ORDERED: THROMBIN FOR SOLN 20000 UNIT KIT ONE (07:57)
[2017-09-13] MEDS ORDERED: CEFAZOLIN SOD 1 GM VIAL ONE (07:57)
[2017-09-13] MEDS ORDERED: EpHEDrine SULFATE INJ 50 MG/ML AMP IV PRN (08:30)
[2017-09-13] MEDS ORDERED: ONDANSETRON INJ 2 MG/ML 2 ML VIAL IV PRN ×2 (08:30→09:15)
[2017-09-13] MEDS ORDERED: PROMETHAZINE HCL INJ 12.5 MG in SODIUM CHLORIDE 0.9% 50ML 50 ML IV PRN (08:30)
[2017-09-13] MEDS ORDERED: FENTANYL CITRATE INJ 50 MCG/1 ML 2 ML VIAL IV PRN (08:30)
[2017-09-13] MEDS ORDERED: ATROPINE SULFATE 0.1 MG/ML 5ML SYR IV PRN (08:30)
[2017-09-13] MEDS ORDERED: HYDROmorphone INJ 1 MG/ML SYR IV PRN (08:30)
--- NOTE | 2017-09-13 08:30 | Progress Note ---
Progress Note Date of Service Sep 13, 2017. Progress Note Attempted to see the pt, but he was on his way to the OR for port placement this morning. Will plan to leave solano catheter in place for now until he follows up with Dr. Vaca. High risk for recurrence of UR. Will see pt again tomorrow morning.
--- NOTE | 2017-09-13 09:07 | [facility] Operative Report ---
Operative Report Operative Date Sep 13, 2017. Pre-Operative Diagnosis Bladder Cancer Post-Operative Diagnosis Same as preop Procedure(s) Performed port Surgeon Dr. Natarajan Can Technician Surgeon(s) None Estimated Blood Loss 3 cc Findings placed via Lt subclavian vein Specimens None per Surgeon Complication(s) None Disposition Recovery Room / PACU I attest to the content of the Intraoperative Record and any orders documented therein. Any exceptions are noted below.
[2017-09-13] MEDS ORDERED: HYDROCODONE/ACETAMOPHEN 5/325MG TAB PO PRN ×2 (09:15)
[2017-09-13] MEDS ORDERED: HYDR-5688 PO (09:21)
--- NOTE | 2017-09-13 09:22 | Discharge Instructions ---
Discharge Instructions Date of Service Sep 13, 2017. Admission Reason for Admission: Bladder Pain, Uti Discharge Discharge Diagnosis / Problem: port Discharge Goals Goal(s): Decrease discomfort, Improve function Activity Recommendations Activity Limitations: as noted below Lifting Limitations: no more than 25 pounds Exercise/Sports Limitations: until after follow-up appointment May Resume Sexual Activity: when tolerated Shower/Bathe: tomorrow Driving or Machine Use: resume 1 day after discharge . Instructions / Follow-Up Instructions / Follow-Up SPECIAL CARE INSTRUCTIONS: * Cover incisions and change daily for comfort/drainage. * May use ibuprofen for pain as tolerated. * Expect some swelling and bruising. Call your doctor if: * Temperature above 101 degrees * Pain not relieved by pain medicine ordered * There is increased drainage or redness from any incision * You have any unanswered questions or concerns [phone]. FOLLOW UP VISIT: If not already scheduled, please call the office for a follow-up visit. for 2 weeks- suture removal OFFICE PHONE NUMBER: Dr. Natarajan Office Current Hospital Diet Patient's current hospital diet: AHA Diet (Heart Healthy), Diabetes Type 2 Diet Discharge Diet Recommended Diet: Regular Diet Procedures Procedures Performed: A-Port Insertion Left Subclavian Pending Studies Studies pending at discharge: no Medical Emergencies . Who to Call and When: Medical Emergencies: If at any time you feel your situation is an emergency, please call 911 immediately. . Non-Emergent Contact Non-Emergency issues call your: Primary Care Provider, Surgeon . "Provider Documentation" section prepared by Ibrahima Natarajan. . VTE Core Measure Inpt VTE Proph given/why not?: Enoxaparin (Lovenox)SQ, SCD's
--- NOTE | 2017-09-13 09:26 | Hematology/Oncology Prog Note ---
Hematology/Onc Progress Note Date of Service Sep 13, 2017. Diagnoses Bladder carcinoma Right hydronephrosis Medications Medications Administered Medications (Trade) Dose Ordered Sig/Young Route Start Time Stop Time Status Last Admin Dose Admin Sodium Chloride 1,000 ml @ 999 mls/hr Q1H1M ONCE IV 09/07/17 09:33 09/07/17 10:42 DC 09/07/17 10:08 999 MLS/HR Hydromorphone HCl (Dilaudid Inj) 1 mg NOW STAT IV 09/07/17 09:33 09/07/17 09:35 DC 09/07/17 10:09 1 MG Ondansetron HCl (Zofran Inj) 4 mg NOW STAT IV 09/07/17 09:33 09/07/17 09:35 DC 09/07/17 10:09 4 MG Acetaminophen (Tylenol Tab) 1,000 mg NOW STAT PO 09/07/17 10:11 09/07/17 10:12 DC 09/07/17 10:36 1,000 MG Cefepime HCl 2000 mg/Dextrose 122 ml @ 200 mls/hr NOW STAT IV 09/07/17 10:23 09/07/17 10:59 DC 09/07/17 11:03 200 MLS/HR Vancomycin HCl (Vancomycin 1gm/ 270ml Nss) 1 gm NOW STAT IV 09/07/17 10:23 09/07/17 10:25 DC 09/07/17 10:36 1 GM Hydromorphone HCl (Dilaudid Inj) 1 mg NOW STAT IV 09/07/17 11:13 09/07/17 11:14 DC 09/07/17 11:22 1 MG Metoclopramide HCl (Reglan Inj) 10 mg NOW STAT IV 09/07/17 11:13 09/07/17 11:14 DC 09/07/17 11:22 10 MG Sodium Chloride 1,000 ml @ 999 mls/hr Q1H1M STAT IV 09/07/17 12:17 09/07/17 13:17 DC 09/07/17 12:29 999 MLS/HR Sodium Chloride 1,000 ml @ 999 mls/hr Q1H1M STAT IV 09/07/17 12:22 09/07/17 13:22 DC 09/07/17 12:29 999 MLS/HR Clindamycin Phosphate 600 mg/ Dextrose 54 ml @ 108 mls/hr 1230 IV 09/07/17 12:30 09/07/17 12:59 DC 09/07/17 12:37 108 MLS/HR Hydromorphone HCl (Dilaudid Inj) 1 mg NOW STAT IV 09/07/17 12:27 09/07/17 12:28 DC 09/07/17 12:32 1 MG Aspirin (Ecotrin Tab) 81 mg QAM PO 09/08/17 09:00 10/08/17 08:59 09/12/17 08:48 81 MG Atorvastatin Calcium (Lipitor Tab) 80 mg QPM PO 09/07/17 21:00 10/07/17 20:59 09/12/17 21:32 80 MG Gabapentin (Neurontin Cap) 300 mg TID PO 09/07/17 14:00 10/07/17 13:59 09/12/17 21:31 300 MG Lisinopril (Zestril Tab) 5 mg QAM PO 09/08/17 09:00 10/08/17 08:59 Future Hold 09/09/17 08:08 5 MG Metoprolol Tartrate (Lopressor Tab) 25 mg Q12 PO 09/07/17 21:00 09/09/17 17:48 DC 09/09/17 08:04 25 MG Oxybutynin Chloride (Ditropan Tab) 5 mg TID PRN PO 09/07/17 12:30 09/11/17 09:55 DC 09/10/17 07:28 5 MG Oxycodone HCl (Roxicodone Immediate Rel Tab) 10 mg Q4H PRN PO 09/07/17 12:30 09/21/17 12:29 09/12/17 21:36 10 MG Phenazopyridine HCl (Pyridium Tab) 200 mg TID PRN PO 09/07/17 12:30 09/11/17 09:55 DC 09/11/17 09:52 200 MG Tamsulosin HCl (Flomax Cap) 0.4 mg DAILY PO 09/08/17 09:00 10/08/17 08:59 09/12/17 08:48 0.4 MG Citalopram Hydrobromide (celeXA TAB) 10 mg DAILY PO 09/08/17 09:00 10/08/17 08:59 09/12/17 08:47 10 MG Docusate Sodium (coLACE CAP) 100 mg BID PO 09/07/17 21:00 10/07/17 20:59 09/12/17 21:31 100 MG Hydromorphone HCl (Dilaudid Inj) 1 mg Q3H PRN IV 09/07/17 12:30 09/08/17 13:56 DC 09/08/17 12:14 1 MG Acetaminophen (Tylenol Tab) 650 mg Q6H PRN PO 09/07/17 12:30 10/07/17 12:29 09/12/17 11:01 650 MG Cefepime HCl 1000 mg/Syringe 11 ml @ 5.5 mls/min Q8H IV 09/07/17 19:00 09/09/17 07:53 DC 09/09/17 02:33 5.5 MLS/MIN Sodium Chloride 1,000 ml @ 150 mls/hr Q6H40M IV 09/07/17 13:15 09/08/17 02:34 DC 09/07/17 23:07 150 MLS/HR Fentanyl Citrate (Fentanyl Inj) 25 mcg Q5M PRN IV 09/07/17 13:45 09/07/17 18:45 DC 09/07/17 15:30 25 MCG Sodium Chloride 1,000 ml @ 75 mls/hr [id number] IV 09/08/17 09:30 09/10/17 17:03 DC 09/09/17 19:43 75 MLS/HR Magnesium Sulfate 1 gm/Prmx 100 ml @ 100 mls/hr NOW STAT IV 09/08/17 09:24 09/08/17 10:23 DC 09/08/17 10:57 100 MLS/HR Psyllium Hydrophilic Mucilloid (Metamucil Powder) 1 pkt QAM PO 09/08/17 10:30 09/08/17 16:00 DC 09/08/17 10:57 1 PKT Insulin Aspart (novoLOG ASPART) SLIDING SCALE G... ACHS SC 09/08/17 16:15 09/12/17 23:19 DC 09/11/17 21:28 1 UNITS Hydromorphone HCl (Dilaudid Inj) 1.5 mg Q4H PRN IV 09/08/17 14:00 09/22/17 13:59 09/11/17 11:28 1.5 MG Psyllium Hydrophilic Mucilloid (Metamucil Powder) 1 pkt TID PO 09/08/17 16:00 10/08/17 15:59 09/12/17 18:19 1 PKT Ketorolac Tromethamine (Toradol Inj) 30 mg Q6H PRN IV 09/08/17 17:15 09/13/17 17:14 09/12/17 23:29 30 MG Ciprofloxacin/ Dextrose 400 mg/ Prmx 200 ml @ 100 mls/hr Q12 IV 09/09/17 09:00 09/11/17 10:20 DC 09/11/17 08:55 100 MLS/HR Metoprolol Tartrate (Lopressor Tab) 12.5 mg Q12 PO 09/09/17 21:00 10/07/17 20:59 09/12/17 21:32 12.5 MG Enoxaparin Sodium (Lovenox Inj) 40 mg NOW ONCE SQ 09/09/17 18:00 09/09/17 18:20 DC 09/09/17 19:33 40 MG Enoxaparin Sodium (Lovenox Inj) 40 mg QAM SQ 09/10/17 09:00 10/10/17 08:59 Future Hold 09/12/17 08:54 40 MG Senna (Senokot Tab) 17.2 mg QAM PO 09/11/17 09:00 10/11/17 08:59 09/12/17 08:53 17.2 MG Senna (Senokot Tab) 17.2 mg ONE ONCE PO 09/10/17 14:15 09/10/17 14:19 DC 09/10/17 15:17 17.2 MG Magnesium Hydroxide (Milk Of Magnesia Susp) 30 ml Q6H PRN PO 09/11/17 09:00 10/11/17 08:59 09/11/17 09:12 30 ML Phenazopyridine HCl (Pyridium Tab) 200 mg TID PRN PO 09/11/17 10:00 10/11/17 09:59 09/12/17 11:00 200 MG Bisacodyl (Dulcolax Supp) 10 mg DAILY PRN AL 09/11/17 10:15 10/11/17 10:14 09/11/17 16:01 10 MG Ciprofloxacin (Cipro Tab) 500 mg Q12H PO 09/11/17 21:00 09/25/17 20:59 09/12/17 21:31 500 MG Repaglinide (Prandin Tab) 0.5 mg QAM PO 09/12/17 09:00 10/12/17 08:59 Future Hold 09/12/17 08:52 0.5 MG Sitagliptin Phosphate (Januvia Tab) 100 mg QAM PO 09/12/17 09:00 10/12/17 08:59 Future Hold 09/12/17 08:49 100 MG Glimepiride (Amaryl Tab) 8 mg DAILY@0830 PO 09/12/17 08:30 10/12/17 08:29 Future Hold 09/12/17 08:46 8 MG Lactulose (Chronulac Syrup) 30 gm ONE ONCE PO 09/12/17 15:30 09/12/17 15:31 DC 09/12/17 15:46 30 GM Dextrose (Dextrose 50% 50ML Syringe) 25 ml NOW ONCE IV 09/13/17 00:00 09/13/17 00:12 DC 09/13/17 00:13 25 ML Dextrose (Dextrose 50% 50ML Syringe) 50 ml NOW ONCE IV 09/13/17 06:00 09/13/17 06:05 DC 09/13/17 06:12 50 ML Glucagon (Glucagon Inj) 1 mg NOW STAT SQ 09/13/17 05:55 09/13/17 06:05 DC 09/13/17 06:13 1 MG Dextrose 1,000 ml @ 100 mls/hr Q10H IV 09/13/17 06:30 10/13/17 06:29 09/13/17 06:24 100 MLS/HR Lidocaine HCl (Xylocaine 1% Inj (Local)) 40 ml STK-MED ONCE .ROUTE 09/13/17 07:57 09/13/17 07:58 DC 09/13/17 09:02 10 ML Cefazolin Sodium (Ancef Inj) 1,000 mg STK-MED ONCE .ROUTE 09/13/17 07:57 09/13/17 07:58 DC 09/13/17 09:01 1,000 MG Heparin Sodium (Porcine) (Heparin Iv Bolus) 10,000 unit STK-MED ONCE .ROUTE 09/13/17 07:57 09/13/17 07:58 DC 09/13/17 09:01 1,000 UNIT Subjective Seen in the postop area. Today he had a port placed in the right subclavian. He states he feels well. He is anxious for discharge. Review of Systems: Constitutional: Negative for weight loss, night sweats, or fever Eyes: Negative for event change of vision ENT: Negative for epistaxis, nasal discharge, sore throat, or deafness Cardiovascular: Negative for chest pain, palpitations, dizziness, diaphoresis Respiratory: Negative for new shortness of breath,hemoptysis, or purulent cough Gastrointestinal: Negative for diarrhea, hematemesis, melena, nausea, vomiting , or dyspepsia Integumentary (skin): Negative for rash or jaundice discoloration Genitourinary: as before Neurological: Negative for weakness, seizure activity, headache, or dizziness Lymphatic/Hematologic: Negative for petechiae, bleeding or new adenopathy Musculoskeletal: Negative for new joint or back pain Allergic/Immunologic: Negative for unusual rash or pruritis. Vital Signs Vital Signs Past 12 Hours Date Time Temp Pulse Resp B/P (MAP) Pulse Ox O2 Delivery O2 Flow Rate FiO2 09/13/17 09:20 68 18 130/72 95 Nasal Cannula 2 09/13/17 09:13 36.5 75 18 136/76 97 Nasal Cannula 2 09/13/17 07:46 36.9 62 17 130/78 (95) 96 Room Air 09/13/17 07:10 Room Air 09/12/17 23:30 Room Air 09/12/17 23:15 37.3 74 16 146/65 (92) 93 Room Air 09/12/17 21:37 151/74 (99) Physical Exam Constitutional: vitals are stable. Eyes: Eyes are BARBARA EOMI without conjuctival erythema or icterus. ENT: External examination was negative for masses. Neck: Negative for masses or palpable thyromegaly Respiratory: Lung sounds were generally clear bilaterally Cardiovascular: Heart was RRR without significant murmur, gallops aoe rubs Gastrointestinal: No palpable hepatic or splenomegaly. The abdomen was soft with normal bowel sounds. Lymphatic system: there was no palpable peripheral lymphadenopathy Musculoskeletal System: The musculoskeletal system seemed concordant with age. Skin: The skin was negative for jaundice. Neurologic exam: The exam was negative for any focal findings. Deep tendon reflexes were equal and symmetrical. Psychiatric exam: Was essentially negative with normal mood and effect. Extremities: negative for edema, tenderness Laboratory Last 24 Hours Test 09/12/17 11:58 09/12/17 17:07 09/12/17 21:12 09/12/17 21:25 Bedside Glucose 91 mg/dl 78 mg/dl 58 mg/dl 58 mg/dl Test 09/12/17 21:50 09/12/17 23:30 09/13/17 00:50 09/13/17 05:51 Bedside Glucose 65 mg/dl 68 mg/dl 82 mg/dl 46 mg/dl Test 09/13/17 06:38 Bedside Glucose 170 mg/dl Assessment & Plan Bladder carcinoma status post ureteric stent placement. Gram-negative sepsis being treated. Port is been placed in anticipation of chemotherapy namely MVA C that all began mid-to-late next week in our clinic and those arrangements will be made in follow-up. Echocardiogram has been done and LVEF is quite good. We will sign off as a service for now please do not hesitate to reconsult if needed.
--- NOTE | 2017-09-13 09:31 | OPERATIVE REPORT ---
DATE OF OPERATION: 09/13/2017 NAME OF OPERATION: Access port. PREOPERATIVE DIAGNOSIS: Bladder cancer. POSTOPERATIVE DIAGNOSIS: Same. STAFF SURGEON: Ibrahima Natarajan MD. ANESTHESIA: 1% plain lidocaine with sedation. DESCRIPTION OF PROCEDURE: The patient was brought in the operating room and placed on the operating table in supine position. His chest was prepped and draped in usual fashion. 1% plain lidocaine was used to anesthetize the skin and subcutaneous tissue over the left deltopectoral groove. Incision was made carrying dissection down identifying the cephalic vein. It was too small to place the catheter. It was ligated. Then the patient was placed in Trendelenburg position. Using a puncture technique, the left subclavian vein was localized, a wire passed under fluoroscopy. The dilator and introducer passed over the wire. The dilator and wire removed. Catheter passed through the introducer, positioned appropriately and then aspirated and flushed with heparinized solution. A pocket was fashioned in the chest wall. Then the port was attached to the catheter. The port was aspirated and flushed with heparinized solution and was placed into the pocket and secured to the chest wall using 3-0 Prolene suture. The wound was irrigated with antibiotic solution. Subcutaneous tissue was reapproximated using 2-0 chromic suture and then the skin reapproximated using 4-0 nylon suture. The patient was transferred to recovery room in stable condition. I attest to the content of the Intraoperative Record and any orders documented therein. Any exception s are noted below.
--- NOTE | 2017-09-13 09:33 | Anesthesiology Progress Note ---
Anesthesia Post Op Note Date & Time Sep 13, 2017 at 09:33 Vital Signs Pain Intensity: 0 Vital Signs Past 12 Hours Date Time Temp Pulse Resp B/P (MAP) Pulse Ox O2 Delivery O2 Flow Rate FiO2 09/13/17 09:30 60 18 114/67 99 Nasal Cannula 2 09/13/17 09:20 68 18 130/72 95 Nasal Cannula 2 09/13/17 09:13 36.5 75 18 136/76 97 Nasal Cannula 2 09/13/17 07:46 36.9 62 17 130/78 (95) 96 Room Air 09/13/17 07:10 Room Air 09/12/17 23:30 Room Air 09/12/17 23:15 37.3 74 16 146/65 (92) 93 Room Air 09/12/17 21:37 151/74 (99) Notes Mental Status: alert / awake / arousable, participated in evaluation Pt Amnestic to Procedure: Yes Nausea / Vomiting: adequately controlled Pain: adequately controlled Airway Patency, RR, SpO2: stable & adequate BP & HR: stable & adequate Hydration State: stable & adequate Anesthetic Complications: no major complications apparent Awake, doing well, no complaints. VSS.
--- NOTE | 2017-09-13 09:57 | DIAGNOSTIC IMAGING REPORT ---
CHEST ONE VIEW PORTABLE CLINICAL HISTORY: A-Port catheter placement COMPARISON STUDY: 09/07/2017 FINDINGS: The cardiac and mediastinal contours are normal. There is no evidence of focal pulmonary consolidation. There is no evidence of failure. No pleural effusions are visualized.[There has been interval placement of a left subclavian A-Port catheter. The tip projects at the superior vena cava. There is no pneumothorax. A small metallic density projects over the central chest. IMPRESSION: No evidence of pneumothorax status post placement of a left subclavian A-Port catheter. Electronically signed by: Cristian Gayle M.D. 09/13/2017 9:55 AM Dictated Date/Time: 09/13/2017 9:54 AM
[2017-09-13] MEDS: CIPROFLOXACIN 500 MG TAB PO SCH (10:24)
[2017-09-13] MEDS: PSYLLIUM 58.6% PWD PACK S\\F PO SCH ×2 (10:24→13:15)
[2017-09-13] MEDS: CITALOPRAM 20 MG TAB PO SCH (10:24)
[2017-09-13] MEDS: DOCUSATE SODIUM 100 MG CAP PO SCH (10:25)
[2017-09-13] MEDS: TAMSULOSIN HCL 0.4 MG CAP PO SCH (10:25)
[2017-09-13] MEDS: ASPIRIN 81 MG ECTAB PO SCH (10:25)
[2017-09-13] MEDS: METOPROLOL TARTRATE 25 MG TAB PO SCH (10:27)
[2017-09-13] MEDS: GABAPENTIN 300 MG CAP PO SCH ×2 (10:27→13:16)
[2017-09-13] MEDS: SENNA 8.6 MG TAB PO SCH (10:28)
[2017-09-13] MEDS ORDERED: CPR500 PO (10:58)
[2017-09-13] MEDS ORDERED: SENN-61 PO (10:58)
[2017-09-13] MEDS ORDERED: LCTL45 PO (14:01)
--- NOTE | 2017-09-13 14:02 | Surgery Progress Note ---
Surgery Progress Note Date of Service Sep 13, 2017. Objective Vital Signs: Date Time Temp Pulse Resp B/P (MAP) Pulse Ox O2 Delivery O2 Flow Rate FiO2 09/13/17 12:45 36.9 77 18 123/77 (92) 92 Room Air 09/13/17 11:50 37.2 70 14 121/74 (90) 95 Room Air 09/13/17 11:09 96 Room Air 09/13/17 10:45 36.8 82 16 120/75 (90) 94 Room Air 09/13/17 10:17 37.0 78 16 105/72 (83) 92 Room Air 09/13/17 09:45 Room Air 09/13/17 09:45 37.0 69 16 106/71 (83) 97 Room Air 09/13/17 09:40 36.6 61 18 105/62 99 Nasal Cannula 2 09/13/17 09:30 60 18 114/67 99 Nasal Cannula 2 09/13/17 09:20 68 18 130/72 95 Nasal Cannula 2 09/13/17 09:13 36.5 75 18 136/76 97 Nasal Cannula 2 09/13/17 07:46 36.9 62 17 130/78 (95) 96 Room Air 09/13/17 07:10 Room Air 09/12/17 23:30 Room Air 09/12/17 23:15 37.3 74 16 146/65 (92) 93 Room Air 09/12/17 21:37 151/74 (99) 09/12/17 15:45 Room Air 09/12/17 15:36 36.9 85 18 112/67 (82) 99 Room Air Laboratory Results: Results Past 24 Hours Test 09/12/17 17:07 09/12/17 21:12 09/12/17 21:25 09/12/17 21:50 Range/Units Bedside Glucose 78 58 58 65 70-99 mg/dl Test 09/12/17 23:30 09/13/17 00:50 09/13/17 05:51 09/13/17 06:38 Range/Units Bedside Glucose 68 82 46 170 70-99 mg/dl Test 09/13/17 09:22 09/13/17 12:21 Range/Units Bedside Glucose 180 76 70-99 mg/dl Assessment & Plan 09/13/17- s/p port- may d/c when ok with med team- script in chart, instructions in computer- office 2 weeks- sutures
--- NOTE | 2017-09-13 14:06 | Discharge Instructions ---
Discharge Instructions Date of Service Sep 13, 2017. Admission Reason for Admission: Bladder Pain, Uti Discharge Discharge Diagnosis / Problem: Urinary Tract Infection; Urinary Retention Discharge Goals Goal(s): Decrease discomfort, Improve function, Increase independence Activity Recommendations Activity Limitations: resume your previous activity . Instructions / Follow-Up Instructions / Follow-Up Sepsis from Klebsiella Septicemia and Urinary Tract Infection: - Your repeat blood cultures do not show any bacteria. Due to the UTI will need to complete a 14 day course of antibiotics. You will finish this on 09/20/17 - Follow-up with the urologist as planned. The plan is to keep the Hernandez in place at this time until you follow-up with urology Constipation: - Will give a prescription for Lactulose to use as needed for constipation and Senna this is a laxative that helps when using pain medication Diabetes: - Continue to monitor your diabetes as you normally do. Continue your previously prescribed diabetes medication. Home Medications: - Please continue your home medications as previously prescribed. We did not make changes to these Current Hospital Diet Patient's current hospital diet: AHA Diet (Heart Healthy), Diabetes Type 2 Diet Discharge Diet Recommended Diet: AHA Diet (Heart Healthy), Diabetes Type 2 Diet Procedures Procedures Performed: A-Port Insertion Left Subclavian Pending Studies Studies pending at discharge: no Medical Emergencies . Who to Call and When: Medical Emergencies: If at any time you feel your situation is an emergency, please call 911 immediately. . Non-Emergent Contact Non-Emergency issues call your: Primary Care Provider Call Non-Emergent contact if: you have a fever, your pain is concerning you, you have any medication questions . . "Provider Documentation" section prepared by Mana Haas. . VTE Core Measure Inpt VTE Proph given/why not?: Enoxaparin (Lovenox)SQ, SCD's
--- NOTE | 2017-09-13 18:08 | Discharge Summary ---
Discharge Summary Date of Service Sep 13, 2017. Discharge Summary Admission Date: Sep 07, 2017 at 13:20 Discharge Date: Sep 13, 2017 Discharge Disposition: Home Principal Diagnosis: Sepsis with Klebsiella Septicemia with Catheter- Associated UTI Problems/Secondary Diagnoses: 1. T2DM 2. CAD S/P VT and S/P Stent 3. Invasive Bladder CA - Urothelial - Possible Invasion into Rectum - TURBT on 08/08 4. HLD Procedures: CT ABD/PELVIS IV CONTRAST ONLY FINDINGS: Lower chest: There are bibasal atelectatic changes. Liver: The contrast-enhanced liver is normal in size, contour, and attenuation. There is no intrahepatic biliary ductal dilatation. The hepatic veins and portal veins are patent. Gallbladder: Unremarkable. Spleen: The spleen is enlarged measuring 15.9 cm. This remains unchanged the prior study. Pancreas: Unremarkable. Adrenal glands: Unremarkable. Kidneys: There are bilateral hypodense renal lesions ranging in size from 4 mm to 16 mm. These likely represent cysts. There is a diminished right-sided nephrogram. There is right-sided hydronephrosis and hydroureter. There is right-sided perinephric stranding. There is a right-sided nephroureteral stent. Bowel: There are no transition zones indicate bowel obstruction. There is colonic diverticulosis. There are no acute peridiverticular inflammatory changes. The appendix appears normal. Peritoneum: There is no intraperitoneal free air or abdominal ascites. Vasculature: The abdominal aorta is normal in course and caliber. Adenopathy: There is no evidence of pathologic adenopathy by size criteria. Pelvic viscera: There is a joint fluid catheter. There is right lateral bladder wall thickening, likely secondary to the patient's known bladder mass. Skeletal structures: No destructive osseous lesions are seen. IMPRESSION: 1. No evidence of bowel obstruction. No evidence of free air 2. Diverticulosis. No evidence of acute diverticulitis 3. Normal appendix 4. Worsening right-sided hydronephrosis and hydroureter with a diminished right-sided nephrogram and right-sided periureteral stranding. This may indicate right-sided obstruction, despite the presence of an indwelling right-sided nephroureteral stent 5. Bladder wall thickening, similar to the prior study INTRAOPERATIVE KUB 2 VIEWS FINDINGS: 54 seconds of fluoroscopic time was utilized. 2 intraoperative fluoroscopic spot images are provided for interpretation. There is a joint fluid catheter. There is a double-pigtail right-sided neck ureteral stent. There is right-sided hydronephrosis. Contrast is visualized within the distal left ureter. IMPRESSION: Intraoperative radiographs imaged rating a double-pigtail right-sided ureteral stent and right-sided hydronephrosis CHEST ONE VIEW PORTABLE FINDINGS: The cardiac and mediastinal contours remain stable. There is no overt failure. There are no pleural effusions. There is slight interstitial prominence, a finding likely accentuated by the AP portable technique..[ IMPRESSION: Slight interstitial prominence, a finding likely related to technical factors. No evidence of focal pulmonary consolidation. Medication Reconciliation New Medications: Hydrocodone/Acetaminophen 5MG/325MG ([place] 5MG/325MG) Tab 1-2 TABLET PO q 6 hrs PRN for Pain, #20 TAB PRN PAIN Lactulose (Lactulose) 30 Gm/45 Ml Syrp 30 GM PO DAILY PRN for Constipation for 14 Days Ciprofloxacin (Ciprofloxacin HCl) 500 Mg Tab 500 MG PO Q12H, #15 TAB Take one dose this evening on 09/13 then resume twice a day on 09/14 Senna (Senokot) 8.6 Mg Tab 17.2 MG PO QAM for 30 Days, #60 TAB Continued Medications: Albuterol Sulfate (Proair Respiclick) 108 Mcg/Act Aer 2 PUFFS INH UD PRN for SOB/Wheezing Aspirin (Aspirin Ec) 81 Mg Tab 81 MG PO QAM Atorvastatin (Lipitor) 80 Mg Tab 80 MG PO QPM Citalopram Hydrobromide (Citalopram Hydrobromide) 10 Mg Tab 10 MG PO DAILY for 30 Days, #30 TAB 3 Refills Docusate Sodium (Colace) 100 Mg Cap 100 MG PO BID PRN for Constipation for 15 Days, #30 CAP Gabapentin (Neurontin) 300 Mg Cap 300 MG PO TID, CAP Glimepiride (Glimepiride) 4 Mg Tab 8 MG PO DAILY Lisinopril (Zestril) 5 Mg Tab 5 MG PO QAM, TAB Metformin Hcl (Glucophage Er) 750 Mg Tab 750 MG PO BID Metoprolol Tartrate (Lopressor) (Lopressor) 25 Mg Tab 25 MG PO Q12, TAB Ondansetron Odt (Zofran Odt) 8 Mg Soltab 4 MG SL Q8 PRN for Nausea, TAB Oxybutynin Chloride (Ditropan) 5 Mg Tab 5 MG PO TID PRN for Bladder pain for 30 Days, #90 TAB 11 Refills Oxycodone Ir (Roxicodone Ir) 5 Mg Tab 5-10 MG PO Q4H PRN for Severe Pain, TAB Phenazopyridine HCl (Pyridium) 200 Mg Tab 200 MG PO TID PRN for Bladder pain, #6 TAB Sitagliptin (Januvia) 100 Mg Tab 100 MG PO QAM Tamsulosin Hcl (Flomax) 0.4 Mg Cap 0.4 MG PO DAILY for 30 Days, #30 CAP 5 Refills Discontinued Medications: Repaglinide (Prandin) 0.5 Mg Tab 0.5 MG PO QAM Discharge Exam Review of Systems: Constitutional: No fever, No chills Respiratory: No cough, No shortness of breath Cardiovascular: No chest pain Abdomen: No pain, No nausea, No vomiting, No diarrhea, No constipation Musculoskeletal: No swelling, No calf pain Genitourinary - Male: + urinary retention (Hernandez placed), No dysuria Hematologic / Lymphatic: No abnormal bleeding/bruising Physical Exam: General Appearance: WD/WN, no apparent distress Eyes: sclerae normal ENT: hearing grossly normal Neck: supple, no JVD, trachea midline Respiratory/Chest: lungs clear, normal breath sounds, no respiratory distress, no accessory muscle use Cardiovascular: regular rate, rhythm, no gallop, no murmur Abdomen / GI: normal bowel sounds, non tender, soft Extremities: no calf tenderness, no pedal edema Neurologic/Psychiatric: alert, oriented x 3 Skin: normal color, warm/dry Hospital Course ADMISSION: 62 y/o M Hx DM II, CAD, urothelial bladder CA - recent resection and R ureteral stent. Pt with chronic Hernandez. Presents with severe bladder pain, dysuria and rigors. He denies CP, SOB, N/V. A CT abdomen/pelvis obtained in the ER reveals worsening R hydroureteronephrosis with perinephric stranding, suspicious for reobstruction vs pyelonephritis or combination of both. Initial labs are notable for a + UA, leukocytosis, hyponatremia and SANTHOSH. HOSPITAL COURSE: Mr. Anna was admitted for Sepsis from Klebsiella Septicemia 2/ 2 Hernandez-Associated UTI and Possible R Pyelonephritis with Known Obstructive Bladder CA Sepsis with Klebsiella Septicemia 2/2 Complicated/Hernandez Associated UTI: Possible R Pyelonephritis -IMPROVING - Repeat BCx with NGTD - Ciprofloxacin 500 mg BID to complete 14 day course - course complete on 09/20 R-Sided Ureteral Obstruction 2/2 Bladder CA S/P Stent Exchange - Chronic Hernandez Placed - Urology followed - plan to follow as outpatient and discuss situation with chronic Hernandez - whether to remove and complete TOV or leave in - General Surgery followed - placed L port for chemotherapy - Oncology - plans to see at end of week and possible chemotherapy starting next week T2DM: - Had episodes of hypoglycemia - currently resolved - continue home oral anti- diabetics Constipation: - Promote good bowel regimen - Rx given for Senna and PRN Lactulose HTN: - Lisinopril is on hold due to initial SANTHOSH - currently resolved Disposition: Plans for F/U with Urology in near future, Oncology on 09/15 with plans for possible chemotherapy next week PA Physician Supervision Note: I interviewed and examined the patient. Discussed with Mana PLUNKETT and agree with findings and plan as documented in the note. Any exceptions or clarifications are listed here: None Patient is doing dramatically well after having is a port placed today. He continues have improved symptoms after having his constipation remedied with lactulose Vital signs are stable The patient is stable doing well has a port site is minorly tender heart is regular lungs are clear Patiently discharged to complete 1 more week of outpatient antibiotics continue his Hernandez catheterization by urology use lactulose for his constipation and will follow up with oncology as an outpatient Documented By: Ranjith Seay Total Time Spent: Greater than 30 minutes This includes examination of the patient, discharge planning, medication reconciliation, and communication with other providers. Discharge Instructions Please refer to the electronic Patient Visit Report (Discharge Instructions) for additional information. Additional Copies To Vasyl Westbrook D.O.
== END 2017-09-13 16:04 | disposition home or self-care (01) | DRG 698 ==
LOC: C.EDB 09:13 → C.2T 13:20 → ENRESERV 14:32 → C.2E 09-08 13:31 → ENRESERV 09-10 14:27 → C.MSW 09-10 16:37
PROVIDERS: ADMIT Internal Medicine; ATTEND Internal Medicine
PROC: 0TP98DZ Removal of Intraluminal Device from Ureter, Via Natural or Artificial Opening Endoscopic (ICD-10-PCS; principal; 2017-09-07 11:05)
PROC: 0T768DZ Dilation of Right Ureter with Intraluminal Device, Via Natural or Artificial Opening Endoscopic (ICD-10-PCS; principal; 2017-09-07 11:05)
PROC: 0JH63XZ Insertion of Tunneled Vascular Access Device into Chest Subcutaneous Tissue and Fascia, Percutaneous Approach (ICD-10-PCS; 2017-09-13)
PROC: 05H633Z Insertion of Infusion Device into Left Subclavian Vein, Percutaneous Approach (ICD-10-PCS; 2017-09-13)
DX: T83.511A Infection and inflammatory reaction due to indwelling urethral catheter, initial encounter (principal); A41.9 Sepsis, unspecified organism; E87.1 Hypo-osmolality and hyponatremia; N17.9 Acute kidney failure, unspecified; N13.1 Hydronephrosis with ureteral stricture, not elsewhere classified; N10 Acute pyelonephritis; N39.0 Urinary tract infection, site not specified; E11.9 Type 2 diabetes mellitus without complications; I25.10 Atherosclerotic heart disease of native coronary artery without angina pectoris; E86.0 Dehydration; E83.42 Hypomagnesemia; G89.29 Other chronic pain; K59.00 Constipation, unspecified; B96.1 Klebsiella pneumoniae [K. pneumoniae] as the cause of diseases classified elsewhere; G47.33 Obstructive sleep apnea (adult) (pediatric); R09.02 Hypoxemia; C67.2 Malignant neoplasm of lateral wall of bladder; Z79.82 Long term (current) use of aspirin; Z79.84 Long term (current) use of oral hypoglycemic drugs; Z79.899 Other long term (current) drug therapy; Y84.6 Urinary catheterization as the cause of abnormal reaction of the patient, or of later complication, without mention of misadventure at the time of the procedure

== ENCOUNTER 2017-09-17 12:39 | Inpatient (IN) | payer OTHER ==
[~2017-09-17] VITALS: Ht 177.8 cm; Wt 97.7 kg
[~2017-09-17 12:39] MED LIST changes: +CPR500 PO; +HYDR-5688 PO; +LCTL45 PO; -REPA1TAB5 PO; +SENN-61 PO; -SULF800T23 PO
[2017-09-17] MEDS ORDERED: FENTANYL 50 MCG/HR TDSY TD STA (13:22)
--- NOTE | 2017-09-17 13:29 | EMERGENCY ROOM VISIT NOTE ---
History First contact with patient: 13:05 Chief Complaint: PAIN (GENERALIZED) Stated Complaint: KIDNEY AND BLADDER CANCER History of Present Illness The patient is a 62 year old male who presents to the Emergency Room with complaints of severe right flank pain and lower abdominal pain that started fairly suddenly this morning. The patient has a history of invasive bladder cancer. He was just discharged from the hospital on 09/13. He was treated for a UTI and also had a port placed. He is not currently taking chemotherapy. The patient also notes gross hematuria starting this morning. He has an indwelling Hernandez catheter. He has also had chills. He did not take his temperature at home. He denies any cough, congestion or sore throat. No nausea. He has had a poor appetite. The patient was taking oxycodone at home that did not help with the pain this morning. Review of Systems 10 system review performed and negative unless noted in HPI or below Past Medical/Surgical History Medical Problems: (1) Bladder pain (2) Chronic back pain (3) Diabetes mellitus (4) Dyslipidemia (5) Gross hematuria (6) Gross hematuria (7) Intractable pain (8) Postop check (9) UTI (urinary tract infection) Family History Cancer Diabetes mellitus Social History Smoking Status: Former Smoker Drug Use: none Marital Status: Housing Status: lives with significant other Occupation Status: retired Current/Historical Medications Scheduled Aspirin (Aspirin Ec), 81 MG PO QAM Atorvastatin (Lipitor), 80 MG PO QPM Ciprofloxacin (Ciprofloxacin HCl), 500 MG PO Q12H Citalopram Hydrobromide (Citalopram Hydrobromide), 10 MG PO DAILY Gabapentin (Neurontin), 300 MG PO TID Glimepiride (Glimepiride), 8 MG PO DAILY Lisinopril (Zestril), 5 MG PO QAM Metformin Hcl (Glucophage Er), 750 MG PO BID Metoprolol Tartrate (Lopressor) (Lopressor), 25 MG PO Q12 Senna (Senokot), 17.2 MG PO QAM Sitagliptin (Januvia), 100 MG PO QAM Tamsulosin Hcl (Flomax), 0.4 MG PO DAILY Scheduled PRN Albuterol Sulfate (Proair Respiclick), 2 PUFFS INH UD PRN for SOB/Wheezing Docusate Sodium (Colace), 100 MG PO BID PRN for Constipation Hydrocodone/Acetaminophen 5MG/325MG ([place] 5MG/325MG), 1-2 TABLET PO q 6 hrs PRN for Pain Lactulose (Lactulose), 30 GM PO DAILY PRN for Constipation Ondansetron Odt (Zofran Odt), 4 MG SL Q8 PRN for Nausea Oxybutynin Chloride (Ditropan), 5 MG PO TID PRN for Bladder pain Oxycodone Ir (Roxicodone Ir), 5-10 MG PO Q4H PRN for Severe Pain Phenazopyridine HCl (Pyridium), 200 MG PO TID PRN for Bladder pain Physical Exam Vital Signs Date Time Temp Pulse Resp B/P (MAP) Pulse Ox O2 Delivery O2 Flow Rate FiO2 09/17/17 17:18 64 17 119/88 98 Nasal Cannula 09/17/17 15:43 59 18 108/72 99 Nasal Cannula 2.0 09/17/17 14:40 61 20 135/73 93 Room Air 09/17/17 12:55 36.6 81 24 106/62 95 Room Air Physical Exam VITALS: Vitals are noted on the nurse's note and reviewed by myself. Vital signs stable. GENERAL: 62-year-old male, obviously uncomfortable, SKIN: The skin was without rashes, erythema, edema, or bruising. HEAD: Normocephalic atraumatic. MOUTH: Mucous membranes lately dry. Tonsils are not enlarged. Pharynx without erythema or exudate. Uvula midline. Airway patent. Tongue does not deviate. NECK: . No lymphadenopathy. Cervical spine is nontender. No JVD. HEART: Regular rate and rhythm without murmurs gallops or rubs. LUNGS: Clear to auscultation bilaterally without wheezes, rales or rhonchi. No accessory muscle use. ABDOMEN: Positive bowel sounds x 4.Soft, tenderness to palpation in the right lower quadrant and suprapubic region. Right CVA tenderness noted. No guarding or rebound tenderness. Gross hematuria noted in the Hernandez bag MUSCULOSKELETAL: No muscle atrophy, erythema, or edema noted. Strength 5/5 throughout. NEURO: Patient was alert and oriented to person place and time. Normal sensation to touch. No focal neurological deficits. Medical Decision & Procedures ER Provider Diagnostic Interpretation: CT abdomen and pelvis IMPRESSION: 1. Unchanged moderate right-sided hydroureteronephrosis with right-sided ureteral stent in stable satisfactory position. 2. Hernandez catheter is noted within a partially collapsed urinary bladder lumen. Hemorrhagic debris is noted within the urinary bladder lumen anterior to the Hernandez catheter balloon. Additionally, there is bladder wall thickening with moderate perivesicular stranding. Correlate with urinalysis to exclude cystitis. 3. Bilateral nonobstructing renal calculi. No ureteral calculi identified. 4. Moderate colonic diverticulosis without diverticulitis. 5. Mild splenomegaly. The above report was generated using voice recognition software. It may contain grammatical, syntax or spelling errors. Electronically signed by: Sushil Diaz M.D. 09/17/2017 2:48 PM Dictated Date/Time: 09/17/2017 2:39 PM The status of this report is Signed. Draft = Not yet reviewed or approved by Radiologist. Signed = Reviewed and approved by Radiologist. <AttendingPhy></AttendingPhy> <FamilyPhy>Vasyl Westbrook D.O.</FamilyPhy> < PrimaryPhy>Vasyl Westbrook D.O.</PrimaryPhy> <UnitNumber>[id number]</ UnitNumber> <VisitNumber>[id number]</VisitNumber> <PatientName>LIZET JONES< /PatientName> <DateOfBirth>1955</DateOfBirth> <Location>[facility]</Location> < ServiceDate>09/17/17</ServiceDate> <MNE>ESINDI</MNE> <OrderingPhy>Nithya Nuñez PA-C</OrderingPhy> <OrderingPhyMNE>f rep ord dr montoya</OrderingPhyMNE> < DictatingPhyMNE>f rep dict dr montoya</DictatingPhyMNE> <CCListMNE>f rep ct mne</ CCListMNE> <AdmittingPhyMNE>f pt admit dr montoya</AdmittingPhyMNE> <AttendingPhyMNE >f pt attend dr montoya</AttendingPhyMNE> Chest x-ray Patient Name: LIZET JONES Unit Number: [id number] Dictated: 09/17/17 1357 Transcribed: 09/17/17 135 JRB Printed Date/Time: [~ rep prt dt]/[~ rep prt tm] [~ rep ct labl] - [~ rep ct ivnm] [facility] [place] [id number] Dictated: 09/17/171356 Transcribed: 09/17/171356 JRB Printed Date/Time: [~ rep prt dt]/[~ rep prt tm] [~ rep ct labl] - [~ rep ct ivnm] IMPRESSION: No acute process. The above report was generated using voice recognition software. It may contain grammatical, syntax or spelling errors. Electronically signed by: Sushil Diaz M.D. 09/17/2017 1:59 PM Dictated Date/Time: 09/17/2017 1:57 PM The status of this report is Signed. Draft = Not yet reviewed or approved by Radiologist. Signed = Reviewed and approved by Radiologist. <AttendingPhy></AttendingPhy> <FamilyPhy>Vasyl Westbrook D.O.</FamilyPhy> < PrimaryPhy>Vasyl Westbrook D.O.</PrimaryPhy> <UnitNumber>[id number]</ UnitNumber> <VisitNumber>[id number]</VisitNumber> <PatientName>LIZET JONES Boyd< /PatientName> <DateOfBirth>1955</DateOfBirth> <Location>[facility]</Location> < ServiceDate>09/17/17</ServiceDate> <MNE>ESINDI</MNE> <OrderingPhy>Nithya Nuñez PA-C</OrderingPhy> <OrderingPhyMNE>f rep ord dr montoya</OrderingPhyMNE> < DictatingPhyMNE>f rep dict dr montoya</DictatingPhyMNE> <CCListMNE>f rep ct mne</ CCListMNE> <AdmittingPhyMNE>f pt admit dr montoya</AdmittingPhyMNE> <AttendingPhyMNE >f pt attend dr montoya</AttendingPhyMNE> <ConsultingPhyMNE>f pt consult dr montoya</ConsultingPhyMNE> <FamilyPhyMNE>f pt fam dr mne</FamilyPhyMNE> <OtherPhyMNE>f pt other mne</OtherPhyMNE> < PrimaryPhyMNE>f pt prim care mne</PrimaryPhyMNE> <ReferringPhyMNE>f pt referring mne</ReferringPhyMNE> Laboratory Results 09/17/17 13:10 Red Blood Count 3.96, Mean Corpuscular Volume 90.7, Mean Corpuscular Hemoglobin 30.8, Mean Corpuscular Hemoglobin Concent 34.0, Mean Platelet Volume 9.7, Neutrophils (%) (Auto) 76.1, Lymphocytes (%) (Auto) 11.0, Monocytes (%) (Auto) 10.6, Eosinophils (%) (Auto) 0.9, Basophils (%) (Auto) 0.1, Neutrophils # (Auto ) 5.23, Lymphocytes # (Auto) 0.76, Monocytes # (Auto) 0.73, Eosinophils # (Auto ) 0.06, Basophils # (Auto) 0.01 09/17/17 13:10 Test 09/17/17 13:10 09/17/17 13:50 09/17/17 14:30 White Blood Count 6.88 K/uL (4.8-10.8) Red Blood Count 3.96 M/uL (4.7-6.1) Hemoglobin 12.2 g/dL (14.0-18.0) Hematocrit 35.9 % (42-52) Mean Corpuscular Volume 90.7 fL (80-100) Mean Corpuscular Hemoglobin 30.8 pg (25-34) Mean Corpuscular Hemoglobin Concent 34.0 g/dl (32-36) Platelet Count 180 K/uL (130-400) Mean Platelet Volume 9.7 fL (7.4-10.4) Neutrophils (%) (Auto) 76.1 % Lymphocytes (%) (Auto) 11.0 % Monocytes (%) (Auto) 10.6 % Eosinophils (%) (Auto) 0.9 % Basophils (%) (Auto) 0.1 % Neutrophils # (Auto) 5.23 K/uL (1.4-6.5) Lymphocytes # (Auto) 0.76 K/uL (1.2-3.4) Monocytes # (Auto) 0.73 K/uL (0.11-0.59) Eosinophils # (Auto) 0.06 K/uL (0-0.5) Basophils # (Auto) 0.01 K/uL (0-0.2) RDW Standard Deviation 42.5 fL (36.4-46.3) RDW Coefficient of Variation 12.7 % (11.5-14.5) Immature Granulocyte % (Auto) 1.3 % Immature Granulocyte # (Auto) 0.09 K/uL (0.00-0.02) Prothrombin Time 11.0 SECONDS (9.0-12.0) Prothromb Time International Ratio 1.0 (0.9-1.1) Anion Gap 10.0 mmol/L (3-11) Est Creatinine Clear Calc Drug Dose 57.6 ml/min Estimated GFR () 54.8 Estimated GFR (Non- 47.3 BUN/Creatinine Ratio 12.4 (10-20) Calcium Level 8.9 mg/dl (8.5-10.1) Total Bilirubin 0.5 mg/dl (0.2-1) Aspartate Amino Transf (AST/SGOT) 58 U/L (15-37) Alanine Aminotransferase (ALT/SGPT) 153 U/L (12-78) Alkaline Phosphatase 85 U/L (45-117) Total Protein 7.4 gm/dl (6.4-8.2) Albumin 3.2 gm/dl (3.4-5.0) Globulin 4.2 gm/dl (2.5-4.0) Albumin/Globulin Ratio 0.8 (0.9-2) Lactic Acid Level 0.9 mmol/L (0.4-2.0) Urine Color RED Urine Appearance TURBID (CLEAR) Urine pH 6.5 (4.5-7.5) Urine Specific [place] 1.020 (1.000-1.030) Urine Protein 2+ (NEG) Urine Glucose (UA) NEG (NEG) Urine Ketones NEG (NEG) Urine Occult Blood 3+ (NEG) Urine Nitrite NEG (NEG) Urine Bilirubin NEG (NEG) Urine Urobilinogen NEG (NEG) Urine Leukocyte Esterase NEG (NEG) Urine RBC >30 /hpf (0-4) Urine WBC >30 /hpf (0-5) Urine Epithelial Cells 0-5 /lpf (0-5) Urine Bacteria 1+ (NEG) Medications Administered Medications (Trade) Dose Ordered Sig/Young Route Start Time Stop Time Status Last Admin Dose Admin Hydromorphone HCl (Dilaudid Inj) 1 mg Q1H PRN IV 09/17/17 13:30 09/17/17 19:23 DC 09/17/17 17:18 1 MG Fentanyl (Duragesic Patch) 50 mcg NOW STAT TD 09/17/17 13:22 09/17/17 13:26 DC 09/17/17 13:33 50 MCG Sodium Chloride 1,000 ml @ 999 mls/hr Q1H1M ONCE IV 09/17/17 13:30 09/17/17 14:30 DC 09/17/17 13:34 999 MLS/HR ED Course Patient was seen and examined Vital signs including blood pressure were reviewed medications list was verified with patient Labs were obtained, and a saline lock was established The patient was medicated with Dilaudid. He was also given a fentanyl patch. He was hydrated with 1 L normal saline. Upon reevaluation, the patient was still. He was given Dilaudid 1 mg IV. His workup was reviewed with my supervising physician who is in agreement with my plan. I discussed the results with the patient and the patient's family. They voiced understanding. We discussed disposition. They were uncomfortable being discharged home as he has had a lot of bleeding and clots through the Hernandez catheter. This was discussed with case management. The case was discussed with the [facility] hospitalist group who agreed to admit the patient for further workup and treatment. Medical Decision Differential diagnosis: UTI, sepsis, invasive bladder CA, hydronephrosis This patient is an unfortunate 62-year-old male with a history of invasive bladder cancer that presented to the emergency department with hematuria, chills and sudden onset of severe pain. Exam, he was significantly uncomfortable. His abdomen was tender. There was gross blood in the Hernandez catheter. His labs reveal a mild drop in his H&H. Otherwise, there is no significant change from previous labs. A CT was performed. There was some inflammatory changes surrounding the bladder consistent with his recent UTI. Otherwise, it was fairly unchanged. Unfortunately, I did not get the patient's pain under control after numerous doses of Dilaudid and fentanyl patch. He also was passing a fair amount of blood and clots in his urine. For these reasons, I do not feel comfortable discharging the patient home. This was discussed with the patient and he was in agreement. He will be admitted to the hospital for further workup and treatment. This chart was completed in part utilizing [employer] Speech Voice Recognition software. Attempts were made to minimize the grammatical errors, random word insertions, pronoun errors and incomplete sentences. Any formal questions or concerns about the content, text or information contained within the body of this dictation should be directly addressed to the provider for clarification. Medication Reconcilliation Current Medication List: was personally reviewed by me Blood Pressure Screening Patient's blood pressure: Normal blood pressure Impression Primary Impression: Gross hematuria Additional Impression: Abdominal pain Departure Information Referrals Vasyl Westbrook D.O. (PCP) Patient Instructions [facility] Problem Qualifiers
[2017-09-17] MEDS ORDERED: SODIUM CHLORIDE 0.9% 1000ML 1,000 ML IV ONE (13:30)
[2017-09-17] MEDS: HYDROmorphone INJ 1 MG/ML SYR IV PRN ×4 (13:34→21:16)
[2017-09-17 13:40] LABS: HEMATOCRIT 35.9 % (42-52); HEMOGLOBIN 12.2 g/dL (14.0-18.0); MEAN CELL VOLUME 90.7 fL (80-100); MEAN CORPUSCULAR HEMOGLOBIN 30.8 pg (25-34); MEAN PLATELET VOLUME 9.7 fL (7.4-10.4); PLATELET COUNT 180 K/uL (130-400); RED CELL DISTRIBUTION WIDTH CV 12.7 % (11.5-14.5); RED CELL DISTRIBUTION WIDTH SD 42.5 fL (36.4-46.3); WHITE BLOOD COUNT 6.88 K/uL (4.8-10.8)
[2017-09-17 13:48] LABS: ALBUMIN 3.2 gm/dl (3.4-5.0); CALCIUM 8.9 mg/dl (8.5-10.1); CREATININE 1.54 mg/dl (0.60-1.40)
[2017-09-17 13:51] LABS: TOTAL PROTEIN 7.4 gm/dl (6.4-8.2)
[2017-09-17 14:00] LABS: BASO % 0.1 %; BASO ABS # 0.01 K/uL (0-0.2); EOS % 0.9 %; EOS ABS # 0.06 K/uL (0-0.5); IG# 0.09 K/uL (0.00-0.02); LYMPH ABS # 0.76 K/uL (1.2-3.4); MONO % 10.6 %; MONO ABS # 0.73 K/uL (0.11-0.59); NEUT % 76.1 %; NEUT ABS # 5.23 K/uL (1.4-6.5)
--- NOTE | 2017-09-17 14:00 | DIAGNOSTIC IMAGING REPORT ---
CHEST ONE VIEW PORTABLE HISTORY: 62 years-old Male chills hx bladder CA acute chest with history of bladder cancer COMPARISON: Chest radiograph 09/13/2017 TECHNIQUE: Portable AP view of the chest FINDINGS: Left subclavian Kdcmyt-i-Owuk catheter is seen with distal tip terminating in the region of the SVC. Atherosclerosis of the aorta. Cardiac silhouette is within normal limits. Previously noted metallic density projecting over the central chest is no longer identified. There is no pneumothorax, pleural effusion, focal airspace consolidation or overt pulmonary edema. The bones of the chest appear grossly intact. IMPRESSION: No acute process. The above report was generated using voice recognition software. It may contain grammatical, syntax or spelling errors. Electronically signed by: Sushil Diaz M.D. 09/17/2017 1:59 PM Dictated Date/Time: 09/17/2017 1:57 PM
--- NOTE | 2017-09-17 14:49 | DIAGNOSTIC IMAGING REPORT ---
ABD/PELVIS WITHOUT FOR STONE HISTORY: 62 years-old Male hematuria severe R flank pain low abd pain acute hematuria with right-sided flank pain and lower abdominal pain. Right-sided ureteral stent in place. COMPARISON: CT abdomen and pelvis 09/07/2017. TECHNIQUE: Multiple axial CT images of the abdomen and pelvis were obtained without the use of IV contrast. A dose lowering technique was used consistent with the principals of DANIELLE. FINDINGS: Subsegmental groundglass opacities of the left lung base suggest atelectasis. No pneumatosis or pneumoperitoneum identified. Imaged inferior cardiac chambers are unremarkable with coronary arterial disease. The liver, gallbladder, pancreas and adrenal glands are within normal limits. Spleen is mildly enlarged, 15.6 cm. There are at least 8 nonobstructive renal calculi on the left, largest of which measures 3 mm. There are least 6 nonobstructing renal calculi on the right, largest of which measures 3 mm within the inferior pole. 1.6 cm low attenuating lesion of the inferior pole right kidney suggests renal cyst. There is moderate right-sided hydroureteronephrosis with associated right perinephric and periureteral inflammatory stranding which appears generally unchanged from comparison. A right-sided ureteral stent is in place which appears to be in satisfactory positioning. No calculi are seen along the course of the right ureteral stent. Hernandez catheter is noted within a partially collapsed urinary lumen. High attenuating ill-defined material anterior to the balloon suggest hemorrhage. Moderate perivesicular inflammatory stranding. Moderate atherosclerosis of the aorta. No aneurysm. No bulky adenopathy identified. There is no bowel obstruction or focal bowel wall thickening identified. Moderate colonic diverticulosis without CT evidence of acute diverticulitis. Normal appendix and terminal ileum. Soft tissues are unremarkable. The bones appear intact. IMPRESSION: 1. Unchanged moderate right-sided hydroureteronephrosis with right-sided ureteral stent in stable satisfactory position. 2. Hernandez catheter is noted within a partially collapsed urinary bladder lumen. Hemorrhagic debris is noted within the urinary bladder lumen anterior to the Hernandez catheter balloon. Additionally, there is bladder wall thickening with moderate perivesicular stranding. Correlate with urinalysis to exclude cystitis. 3. Bilateral nonobstructing renal calculi. No ureteral calculi identified. 4. Moderate colonic diverticulosis without diverticulitis. 5. Mild splenomegaly. The above report was generated using voice recognition software. It may contain grammatical, syntax or spelling errors. Electronically signed by: Sushil Diaz M.D. 09/17/2017 2:48 PM Dictated Date/Time: 09/17/2017 2:39 PM
[2017-09-17] MEDS ORDERED: DEXTROSE 50% 50 ML SYR IV PRN (17:30)
[2017-09-17] MEDS ORDERED: GLUCAGON FOR INJ 1 MG VIAL SQ PRN (17:30)
[2017-09-17] MEDS ORDERED: GLUCOSE 40% GEL 15 GM TUBE PO PRN (17:30)
[2017-09-17] MEDS ORDERED: GLUCOSE 10 TABS/TUBE PO PRN (17:30)
[2017-09-17] MEDS ORDERED: ONDANSETRON 4MG OD TAB SL PRN (17:45)
[2017-09-17] MEDS ORDERED: PHENAZOPYRIDINE HCL 200 MG TAB PO PRN (17:45)
[2017-09-17] MEDS ORDERED: DOCUSATE SODIUM 100 MG CAP PO PRN (17:45)
[2017-09-17] MEDS ORDERED: LACTULOSE SYRUP 30 GM/45 ML UDP PO PRN (17:45)
--- NOTE | 2017-09-17 18:37 | History and Physical ---
History & Physical Date & Time of Service: Sep 17, 2017 at 17:59 Chief Complaint: Kidney And Bladder Cancer Primary Care Physician: Vasyl Westbrook D.O. History of Present Illness Patient is a 62 year old male with bladder cancer and a past medical history of HTN, HLD, DM, and NIDIA that presents with intractable pain and gross hematuria. The patient is on pain medications at home including Roxicodone and had been requiring decreasing doses until this morning. The patient states that he woke up with right sided flank and suprapubic discomfort. This discomfort continued to progress throughout the day until it was a constant 10/10 sharp and burning pain. He also developed hematuria this morning that also progressed to the point where not we urinating gross blood through his solano catheter. The patient was recently discharged on 09/13/16 after he was treated for klebsiella septicemia secondary to a complicated UTI with possible right pyelonephritis. The patient is currently on Cipro 500mg BID and will complete his course of antibiotics on 09/20. During that admission he also had an exchange of a right sided ureteral stent due to worsening bladder cancer. He also had a port placed on his left side for chemotherapy that he is slated to start on 09/[address] Sims. The patient has been having regular bowel movements with his regimen of Lactulose and Senna despite his significant opioid use. Past Medical/Surgical History Medical Problems: (1) Chronic back pain Status: Chronic (2) Diabetes mellitus Status: Chronic (3) Dyslipidemia Status: Chronic Family History Cancer Diabetes mellitus Social History Smoking Status: Former Smoker Drug Use: none Marital Status: Occupational Status: retired Multi-Drug Resistant Organisms History of MDRO: No Allergies Coded Allergies: No Known Allergies (Unverified , 09/17/17) Home Medications Scheduled Aspirin (Aspirin Ec), 81 MG PO QAM Atorvastatin (Lipitor), 80 MG PO QPM Ciprofloxacin (Ciprofloxacin HCl), 500 MG PO Q12H Citalopram Hydrobromide (Citalopram Hydrobromide), 10 MG PO DAILY Gabapentin (Neurontin), 300 MG PO TID Glimepiride (Glimepiride), 8 MG PO DAILY Lisinopril (Zestril), 5 MG PO QAM Metformin Hcl (Glucophage Er), 750 MG PO BID Metoprolol Tartrate (Lopressor) (Lopressor), 25 MG PO Q12 Senna (Senokot), 17.2 MG PO QAM Sitagliptin (Januvia), 100 MG PO QAM Tamsulosin Hcl (Flomax), 0.4 MG PO DAILY Scheduled PRN Albuterol Sulfate (Proair Respiclick), 2 PUFFS INH UD PRN for SOB/Wheezing Docusate Sodium (Colace), 100 MG PO BID PRN for Constipation Hydrocodone/Acetaminophen 5MG/325MG ([place] 5MG/325MG), 1-2 TABLET PO q 6 hrs PRN for Pain Lactulose (Lactulose), 30 GM PO DAILY PRN for Constipation Ondansetron Odt (Zofran Odt), 4 MG SL Q8 PRN for Nausea Oxybutynin Chloride (Ditropan), 5 MG PO TID PRN for Bladder pain Oxycodone Ir (Roxicodone Ir), 5-10 MG PO Q4H PRN for Severe Pain Phenazopyridine HCl (Pyridium), 200 MG PO TID PRN for Bladder pain Review of Systems Constitutional: No fever, No chills, No fatigue Respiratory: No cough, No shortness of breath Cardiovascular: No chest pain, No palpitations Abdomen: + pain (suprapubic pain), No nausea, No vomiting, No diarrhea, No constipation, No GI bleeding Genitourinary - Male: + hematuria (gross hematuria) Physical Exam Vital Signs Date Time Temp Pulse Resp B/P (MAP) Pulse Ox O2 Delivery O2 Flow Rate FiO2 09/17/17 17:18 64 17 119/88 98 Nasal Cannula 09/17/17 15:43 59 18 108/72 99 Nasal Cannula 2.0 09/17/17 14:40 61 20 135/73 93 Room Air 09/17/17 12:55 36.6 81 24 106/62 95 Room Air General Appearance: WD/WN, no apparent distress Head: normocephalic, atraumatic Eyes: normal inspection, sclerae normal Respiratory/Chest: chest non-tender, lungs clear, normal breath sounds Cardiovascular: regular rate, rhythm, no edema, no gallop Abdomen/GI: normal bowel sounds, soft, + pertinent finding (Suprapubic tenderness, Right flank tenderness) Genitourinary - Male: normal male genitalia, no urethral discharge Back: + right CVA tenderness Neurologic/Psych: alert, normal mood/affect, oriented x 3 Diagnostics Laboratory Results Results Past 24 Hours Test 09/17/17 13:10 09/17/17 13:50 09/17/17 14:30 Range/Units White Blood Count 6.88 4.8-10.8 K/uL Red Blood Count 3.96 4.7-6.1 M/uL Hemoglobin 12.2 14.0-18.0 g/dL Hematocrit 35.9 42-52 % Mean Corpuscular Volume 90.7 80-100 fL Mean Corpuscular Hemoglobin 30.8 25-34 pg Mean Corpuscular Hemoglobin Concent 34.0 32-36 g/dl Platelet Count 180 130-400 K/uL Mean Platelet Volume 9.7 7.4-10.4 fL Neutrophils (%) (Auto) 76.1 % Lymphocytes (%) (Auto) 11.0 % Monocytes (%) (Auto) 10.6 % Eosinophils (%) (Auto) 0.9 % Basophils (%) (Auto) 0.1 % Neutrophils # (Auto) 5.23 1.4-6.5 K/uL Lymphocytes # (Auto) 0.76 1.2-3.4 K/uL Monocytes # (Auto) 0.73 0.11-0.59 K/uL Eosinophils # (Auto) 0.06 0-0.5 K/uL Basophils # (Auto) 0.01 0-0.2 K/uL RDW Standard Deviation 42.5 36.4-46.3 fL RDW Coefficient of Variation 12.7 11.5-14.5 % Immature Granulocyte % (Auto) 1.3 % Immature Granulocyte # (Auto) 0.09 0.00-0.02 K/uL Prothrombin Time 11.0 9.0-12.0 SECONDS Prothromb Time International Ratio 1.0 0.9-1.1 Sodium Level 133 136-145 mmol/L Potassium Level 4.0 3.5-5.1 mmol/L Chloride Level 99 98-107 mmol/L Carbon Dioxide Level 24 21-32 mmol/L Anion Gap 10.0 3-11 mmol/L Blood Urea Nitrogen 19 7-18 mg/dl Creatinine 1.54 0.60-1.40 mg/dl Est Creatinine Clear Calc Drug Dose 57.6 ml/min Estimated GFR () 54.8 Estimated GFR (Non- 47.3 BUN/Creatinine Ratio 12.4 10-20 Random Glucose 153 70-99 mg/dl Calcium Level 8.9 8.5-10.1 mg/dl Total Bilirubin 0.5 0.2-1 mg/dl Aspartate Amino Transf (AST/SGOT) 58 15-37 U/L Alanine Aminotransferase (ALT/SGPT) 153 12-78 U/L Alkaline Phosphatase 85 45-117 U/L Total Protein 7.4 6.4-8.2 gm/dl Albumin 3.2 3.4-5.0 gm/dl Globulin 4.2 2.5-4.0 gm/dl Albumin/Globulin Ratio 0.8 0.9-2 Lactic Acid Level 0.9 0.4-2.0 mmol/L Urine Color RED Urine Appearance TURBID CLEAR Urine pH 6.5 4.5-7.5 Urine Specific [place] 1.020 1.000-1.030 Urine Protein 2+ NEG Urine Glucose (UA) NEG NEG Urine Ketones NEG NEG Urine Occult Blood 3+ NEG Urine Nitrite NEG NEG Urine Bilirubin NEG NEG Urine Urobilinogen NEG NEG Urine Leukocyte Esterase NEG NEG Urine RBC >30 0-4 /hpf Urine WBC >30 0-5 /hpf Urine Epithelial Cells 0-5 0-5 /lpf Urine Bacteria 1+ NEG Microbiology Results 09/17/17 Blood Culture, Received Pending 09/17/17 Blood Culture, Received Pending Impression Assessment and Plan Patient is a 62 year old male with bladder cancer and a past medical history of HTN, HLD, DM, and NIDIA that presents with intractable pain and gross hematuria Intractable Pain 2/2 Bladder Cancer - Abdominal CT: Patient is a 62 year old male with bladder cancer and a past medical history of HTN, HLD, DM, and NIDIA that presents with intractable pain and gross hematuria - Pain well controlled with IV Dilaudid --> Require 3 doses of 1mg over 5 hours in the ED - Dilaudid 1mg IV q4h PRN for Pain - Continue home Oxybutynin, Pyridium, and Flomax - Normal Saline 100 mls/hr - Solano Catheter in place Gross Hematuria 2/2 Bladder Cancer - UA and Urine Culture ordered --> UA shows 3+ Hematuria - H/H q6h - Hold home Aspirin and no anticoagulation at this time - Urology Consult - NPO after midnight SANTHOSH - Creatinine 1.54 - Baseline appears to be 1.2 but lab as recently as 09/15 showed Cr of 1.66 - IV hydration - Daily BMP History of Klebsiella Septicemia 2/2 Complicated UTI with possible Right Sided Pyelonephritis - Continue Ciprofloxacin 500mg BID until 09/20/16 Hypertension - Continue home Lisinopril Constipation - Continue Senna and Lactulose Diabetes - Sliding Scale Insulin - BSG AC and HS - Hold home Metformin and Sitagliptin' NIDIA - CPAP machine ordered Hyperlipidemia - Continue home Atorvastatin DVT - SCDs Code Status - Full Resuscitation Level of Care Med/Surg Resuscitation Status FULL RESUSCITATION VTE Prophylaxis VTE Risk Assessment Done? Y/N: Yes Risk Level: Moderate Given or contraindicated: SCD's Note Supervising Note Dr. Zaman I performed a history and physical examination on the patient. I reviewed above note and agree with it. I discussed plan with APC and patient. During my face to face encounter with the patient, I answered all of the patient's questions. Consulted Urology. Discussed case. Likely pain is from ureteral stent, and hematuria is from retained blood clot. Urology will see patient in AM. Will continue to follow patient over the course of the day. Resident Tracking Resident Involvement: Resident Care Provided Care Provided: Adult Hospital Medicine
[2017-09-17 19:15] VITALS: BP 147/84; PULSE 71; TEMP 37.3; O2SAT 95
[2017-09-17] MEDS: SODIUM CHLORIDE 0.9% 1000ML 1,000 ML IV SCH (19:38)
[2017-09-17] MEDS ORDERED: HYDROmorphone INJ 1 MG/ML SYR ONE (19:38)
[2017-09-17] MEDS ORDERED: INSULIN ASPART 100 UNITS/ML 3 ML PEN SC SCH (21:00)
[2017-09-17] MEDS ORDERED: IV FLUIDS COMPLETED PRN (21:15)
[2017-09-17] MEDS: CIPROFLOXACIN 500 MG TAB PO SCH (21:17)
[2017-09-17] MEDS: METOPROLOL TARTRATE 25 MG TAB PO SCH (21:18)
[2017-09-17] MEDS: GABAPENTIN 300 MG CAP PO SCH (21:18)
[2017-09-17] MEDS: ATORVASTATIN 40 MG TAB PO SCH (21:19)
[2017-09-17 21:35] VITALS: BP 147/84; PULSE 71; TEMP 37.3; Ht 177.8 cm; Wt 97.7 kg
[2017-09-17] MEDS: OXYBUTYNIN CHLORIDE 5 MG TAB PO PRN (21:45)
[2017-09-17 22:20] LABS: HEMATOCRIT 32.5 % (42-52); HEMOGLOBIN 10.9 g/dL (14.0-18.0)
[2017-09-17 22:51] VITALS: BP 107/66; PULSE 62; TEMP 36.7; O2SAT 96
[2017-09-18] VITALS (7 sets, daily range): BP systolic 95–154; BP diastolic 65–94; PULSE 56–72; TEMP 36.9–37.1; O2SAT 93–99
[2017-09-18] MEDS ORDERED: NURSING VERBAL MED ORDER ONE ×2 (01:15→09:15)
[2017-09-18] MEDS: HYDROmorphone INJ 1 MG/ML SYR IV PRN ×5 (01:22→20:39)
[2017-09-18] MEDS: SODIUM CHLORIDE 0.9% 1000ML 1,000 ML IV SCH (05:40)
[2017-09-18] MEDS ORDERED: INSULIN ASPART 100 UNITS/ML 3 ML PEN SC SCH (06:00)
[2017-09-18 06:30] LABS: HEMATOCRIT 37.2 % (42-52); HEMOGLOBIN 12.5 g/dL (14.0-18.0)
[2017-09-18 06:32] LABS: BASO % 0.3 %; BASO ABS # 0.02 K/uL (0-0.2); EOS % 1.3 %; EOS ABS # 0.09 K/uL (0-0.5); HEMATOCRIT 37.9 % (42-52); HEMOGLOBIN 12.6 g/dL (14.0-18.0); IG# 0.07 K/uL (0.00-0.02); LYMPH % 13.7 %; LYMPH ABS # 0.97 K/uL (1.2-3.4); MEAN CELL VOLUME 92.4 fL (80-100); MEAN CORPUSCULAR HEMOGLOBIN 30.7 pg (25-34); MEAN CORPUSCULAR HGB CONC 33.2 g/dl (32-36); MEAN PLATELET VOLUME 9.4 fL (7.4-10.4); MONO ABS # 0.85 K/uL (0.11-0.59); NEUT % 71.7 %; PLATELET COUNT 203 K/uL (130-400); RED CELL DISTRIBUTION WIDTH SD 43.7 fL (36.4-46.3)
[2017-09-18 07:05] LABS: CALCIUM 8.7 mg/dl (8.5-10.1); CREATININE 1.52 mg/dl (0.60-1.40)
--- NOTE | 2017-09-18 08:55 | Urology Consultation ---
History General Date of Service: Sep 18, 2017. Chief Complaint: gross hematuria Primary Care Physician: Vasyl Westbrook D.O. Pt seen a urologist before?: Yes (Dr. Vaca ) If yes, why?: bladder cancer History of Present Illness 62 yo male with urothelial carcinoma admitted for worsening gross hematuria. The pt is s/p TURBT in July and s/p right stent exchange for worsening right hydro on 09-07-17. He reports chronic constipation at home, and notes pain and straining with BMs causing worsening hematuria. He notes his hematuria worsened yesterday after attempting to have a BM, and resulted in gross hematuria with clots and clogging of his catheter. This resulted in pain as well. Urine is neville colored without clot this morning. Solano patent. He reports chills at home as well. Denies fevers. Denies n/v. He is currently afebrile and white count is normal. Blood and urine cultures pending. Cr noted to be elevated at 1.[address] scan showing stable right hydro with stent in good position. Imaging Imaging: CT Laboratory Last 24 Hours Test 09/17/17 13:10 09/17/17 13:50 09/17/17 14:30 09/17/17 20:23 White Blood Count 6.88 K/uL Red Blood Count 3.96 M/uL Hemoglobin 12.2 g/dL Hematocrit 35.9 % Mean Corpuscular Volume 90.7 fL Mean Corpuscular Hemoglobin 30.8 pg Mean Corpuscular Hemoglobin Concent 34.0 g/dl Platelet Count 180 K/uL Mean Platelet Volume 9.7 fL Neutrophils (%) (Auto) 76.1 % Lymphocytes (%) (Auto) 11.0 % Monocytes (%) (Auto) 10.6 % Eosinophils (%) (Auto) 0.9 % Basophils (%) (Auto) 0.1 % Neutrophils # (Auto) 5.23 K/uL Lymphocytes # (Auto) 0.76 K/uL Monocytes # (Auto) 0.73 K/uL Eosinophils # (Auto) 0.06 K/uL Basophils # (Auto) 0.01 K/uL RDW Standard Deviation 42.5 fL RDW Coefficient of Variation 12.7 % Immature Granulocyte % (Auto) 1.3 % Immature Granulocyte # (Auto) 0.09 K/uL Prothrombin Time 11.0 SECONDS Prothromb Time International Ratio 1.0 Sodium Level 133 mmol/L Potassium Level 4.0 mmol/L Chloride Level 99 mmol/L Carbon Dioxide Level 24 mmol/L Anion Gap 10.0 mmol/L Blood Urea Nitrogen 19 mg/dl Creatinine 1.54 mg/dl Est Creatinine Clear Calc Drug Dose 57.6 ml/min Estimated GFR () 54.8 Estimated GFR (Non- 47.3 BUN/Creatinine Ratio 12.4 Random Glucose 153 mg/dl Calcium Level 8.9 mg/dl Total Bilirubin 0.5 mg/dl Aspartate Amino Transf (AST/SGOT) 58 U/L Alanine Aminotransferase (ALT/SGPT) 153 U/L Alkaline Phosphatase 85 U/L Total Protein 7.4 gm/dl Albumin 3.2 gm/dl Globulin 4.2 gm/dl Albumin/Globulin Ratio 0.8 Lactic Acid Level 0.9 mmol/L Urine Color RED Urine Appearance TURBID Urine pH 6.5 Urine Specific [place] 1.020 Urine Protein 2+ Urine Glucose (UA) NEG Urine Ketones NEG Urine Occult Blood 3+ Urine Nitrite NEG Urine Bilirubin NEG Urine Urobilinogen NEG Urine Leukocyte Esterase NEG Urine RBC >30 /hpf Urine WBC >30 /hpf Urine Epithelial Cells 0-5 /lpf Urine Bacteria 1+ Bedside Glucose 111 mg/dl Test 09/17/17 22:10 09/18/17 06:04 09/18/17 06:16 Hemoglobin 10.9 g/dL 12.6 g/dL Hematocrit 32.5 % 37.9 % Bedside Glucose 127 mg/dl White Blood Count 7.10 K/uL Red Blood Count 4.10 M/uL Mean Corpuscular Volume 92.4 fL Mean Corpuscular Hemoglobin 30.7 pg Mean Corpuscular Hemoglobin Concent 33.2 g/dl Platelet Count 203 K/uL Mean Platelet Volume 9.4 fL Neutrophils (%) (Auto) 71.7 % Lymphocytes (%) (Auto) 13.7 % Monocytes (%) (Auto) 12.0 % Eosinophils (%) (Auto) 1.3 % Basophils (%) (Auto) 0.3 % Neutrophils # (Auto) 5.10 K/uL Lymphocytes # (Auto) 0.97 K/uL Monocytes # (Auto) 0.85 K/uL Eosinophils # (Auto) 0.09 K/uL Basophils # (Auto) 0.02 K/uL RDW Standard Deviation 43.7 fL RDW Coefficient of Variation 13.0 % Immature Granulocyte % (Auto) 1.0 % Immature Granulocyte # (Auto) 0.07 K/uL Sodium Level 133 mmol/L Potassium Level 4.0 mmol/L Chloride Level 102 mmol/L Carbon Dioxide Level 27 mmol/L Anion Gap 4.0 mmol/L Blood Urea Nitrogen 16 mg/dl Creatinine 1.52 mg/dl Est Creatinine Clear Calc Drug Dose 58.3 ml/min Estimated GFR () 55.7 Estimated GFR (Non- 48.1 BUN/Creatinine Ratio 10.5 Random Glucose 129 mg/dl Calcium Level 8.7 mg/dl Problem List Medical Problems: (1) Abdominal pain Status: Acute (2) Bladder neoplasm Status: Acute (3) Constipation Status: Acute (4) Intractable abdominal pain Status: Acute (5) UTI (urinary tract infection) Status: Acute Past History arrhythmia, cancer (bladder ), coronary artery disease, urinary tract infection Past Surgical History: ureteral stent (right stent exchange 09-07-17), other ( TURBT, mediport placement 09-13-17) Family History Cancer Diabetes mellitus Social History Hx Tobacco Use In Past Year?: No (smoked 1 PPD for 30 years plus) Smoking: non-smoker Drug use: none Marital status: Occupation status: retired History of MDRO No Allergies Coded Allergies: No Known Allergies (Unverified , 09/17/17) Medications Home Medications: Home Meds and Scripts Medications Dose Route/Sig Max Daily Dose Days Date Category Dose Instructions Lactulose 30 Gm/45 Ml Syrp 30 Gm PO DAILY PRN 14 09/13/17 Rx Senokot (Senna) 8.6 Mg Tab 17.2 Mg PO QAM 30 09/13/17 Rx Ciprofloxacin HCl (Ciprofloxacin) 500 Mg Tab 500 Mg PO Q12H 09/13/17 Rx Take one dose this evening on 09/13 then resume twice a day on [place] 5MG/325MG (Acetaminophen/Hydrocodone Bitart) Tab 1-2 Tablet PO Q 6 HRS PRN 09/13/17 Rx PRN PAIN Roxicodone Ir (Oxycodone HCl) 5 Mg Tab 5-10 Mg PO Q4H PRN 09/07/17 Reported Flomax (Tamsulosin Hcl) 0.4 Mg Cap 0.4 Mg PO DAILY 30 08/31/17 Reported Citalopram Hydrobromide 10 Mg Tab 10 Mg PO DAILY 30 08/31/17 Reported Ditropan (Oxybutynin Chloride) 5 Mg Tab 5 Mg PO TID PRN 30 08/31/17 Reported Colace (Docusate Sodium) 100 Mg Cap 100 Mg PO BID PRN 15 08/31/17 Reported Pyridium (Phenazopyridine HCl) 200 Mg Tab 200 Mg PO TID PRN 08/31/17 Reported Zofran Odt (Ondansetron HCl) 8 Mg Soltab 4 Mg SL Q8 PRN 08/31/17 Reported Neurontin (Gabapentin) 300 Mg Cap 300 Mg PO TID 08/29/17 Reported Aspirin Ec (Aspirin) 81 Mg Tab 81 Mg PO QAM 08/22/17 Reported Lipitor (Atorvastatin Calcium) 80 Mg Tab 80 Mg PO QPM 08/22/17 Reported Lopressor (Metoprolol Tartrate) 25 Mg Tab 25 Mg PO Q12 08/22/17 Reported Zestril (Lisinopril) 5 Mg Tab 5 Mg PO QAM 08/22/17 Reported Glimepiride 4 Mg Tab 8 Mg PO DAILY 08/22/17 Reported Proair Respiclick (Albuterol Sulfate) 108 Mcg/Act Aer 2 Puffs INH UD PRN 08/22/17 Reported Januvia (Sitagliptin) 100 Mg Tab 100 Mg PO QAM 08/07/17 Reported Glucophage Er (Metformin Hcl) 750 Mg Tab 750 Mg PO BID 12/13/15 Reported Inpatient Medications: Current Inpatient Medications Medications (Trade) Dose Ordered Sig/Young Route Start Time Stop Time Status Last Admin Dose Admin Glucose (Glucose 40% Gel) 15-30 GRAMS 15 GRAMS... UD PRN PO 09/17/17 17:30 10/17/17 17:29 Glucose (Glucose Chew Tab) 4-8 Tablets 4 Tabl... UD PRN PO 09/17/17 17:30 10/17/17 17:29 Dextrose (Dextrose 50% 50ML Syringe) 25-50ML OF 50% DW IV FOR... UD PRN IV 09/17/17 17:30 10/17/17 17:29 Glucagon (Glucagon Inj) 1 mg UD PRN SQ 09/17/17 17:30 10/17/17 17:29 Hydromorphone HCl (Dilaudid Inj) 1 mg Q4 PRN IV 09/17/17 21:00 10/01/17 20:59 09/18/17 06:22 1 MG Atorvastatin Calcium (Lipitor Tab) 80 mg QPM PO 09/17/17 21:00 10/17/17 20:59 09/17/17 21:19 80 MG Ciprofloxacin (Cipro Tab) 500 mg Q12H PO 09/17/17 21:00 09/20/17 23:59 09/17/17 21:17 500 MG Docusate Sodium (coLACE CAP) 100 mg BID PRN PO 09/17/17 17:45 10/17/17 17:44 Gabapentin (Neurontin Cap) 300 mg TID PO 09/17/17 21:00 10/17/17 20:59 09/17/17 21:18 300 MG Lactulose (Chronulac Syrup) 30 gm DAILY PRN PO 09/17/17 17:45 10/17/17 17:44 Lisinopril (Zestril Tab) 5 mg QAM PO 09/18/17 09:00 10/18/17 08:59 Metoprolol Tartrate (Lopressor Tab) 25 mg Q12 PO 09/17/17 21:00 10/17/17 20:59 09/17/17 21:18 25 MG Ondansetron HCl (Zofran Odt) 4 mg Q8 PRN SL 09/17/17 17:45 10/17/17 17:44 Oxybutynin Chloride (Ditropan Tab) 5 mg TID PRN PO 09/17/17 17:45 10/17/17 17:44 09/17/17 21:45 5 MG Phenazopyridine HCl (Pyridium Tab) 200 mg TID PRN PO 09/17/17 17:45 10/17/17 17:44 Senna (Senokot Tab) 17.2 mg QAM PO 09/18/17 09:00 10/18/17 08:59 Tamsulosin HCl (Flomax Cap) 0.4 mg DAILY PO 09/18/17 09:00 10/18/17 08:59 Sodium Chloride 1,000 ml @ 100 mls/hr Q10H IV 09/17/17 19:30 10/17/17 19:29 09/18/17 05:40 100 MLS/HR Miscellaneous (Iv Fluids Completed) 1 ea PRN PRN N/A 09/17/17 21:15 09/17/18 21:14 Insulin Aspart (novoLOG ASPART) SLIDING SCALE If C... Q6 SC 09/18/17 06:00 10/18/17 05:59 Review of Systems Review of Systems Constitutional: No fever, No chills Eyes: No double vision Neurological: No dizzy Endocrine: No excessive thirst Gastrointestinal: No abdominal pain, No nausea, No vomiting Cardiovascular: No chest pain Respiratory: No shortness of breath Skin: No rash Musculoskeletal: No back pain Male : + blood in urine Physical Exam Vital Signs: Vital Signs Past 12 Hours Date Time Temp Pulse Resp B/P (MAP) Pulse Ox O2 Delivery O2 Flow Rate FiO2 09/18/17 06:57 36.9 72 17 95/65 (75) 95 Room Air 09/18/17 00:30 99 Room Air 09/17/17 22:51 36.7 62 18 107/66 (80) 96 Room Air 09/17/17 21:35 37.3 71 18 147/84 Physical Exam: General Appearance: no apparent distress Eyes: bilateral eyes normal inspection ENT: hearing grossly normal Neck: no JVD Respiratory/Chest: no respiratory distress, no accessory muscle use Cardiovascular: no JVD Extremities: normal inspection Neurologic/Psychiatric: alert, normal mood/affect, oriented x 3 Skin: normal color Assessment & Plan Assessment & Plan A/P: Gross hematuria, bladder cancer, ARF AFVSS. Stent appears in good position on CT scan. Avoid surgical intervention for now. Will provide a diet this morning. Recommend IVF for ARF. Will plan for hand irrigation of solano catheter qshift and PRN. Recommend aggressive management of constipation. Will order Miralax and MOM this morning. Continue stool softeners and Dulcolax PRN. Consider adding Dulcolax suppositories PRN. Will keep f/u with Dr. Vaca on 09-28-17 as scheduled. Thanks for the consult. Will continue to follow along with primary service.
[2017-09-18] MEDS ORDERED: POLYETHYLENE (MIRALAX) 17 GM PACK PO SCH (09:00)
[2017-09-18] MEDS ORDERED: SENNA 8.6 MG TAB PO SCH (09:00)
[2017-09-18] MEDS: TAMSULOSIN HCL 0.4 MG CAP PO SCH (09:20)
[2017-09-18] MEDS: METOPROLOL TARTRATE 25 MG TAB PO SCH ×2 (09:20→20:44)
[2017-09-18] MEDS: GABAPENTIN 300 MG CAP PO SCH ×3 (09:20→20:44)
[2017-09-18] MEDS: CIPROFLOXACIN 500 MG TAB PO SCH ×2 (09:20→20:44)
[2017-09-18] MEDS: OXYBUTYNIN CHLORIDE 5 MG TAB PO PRN (09:21)
[2017-09-18] MEDS: MAGNESIUM HYDROXIDE SUSP 30 ML UDC PO PRN (09:29)
[2017-09-18] MEDS: LISINOPRIL 5 MG TAB PO SCH (10:37)
[2017-09-18] MEDS: INSULIN ASPART 100 UNITS/ML 3 ML PEN SC SCH ×3 (13:28→20:47)
--- NOTE | 2017-09-18 13:29 | Family Medicine Progress Note ---
Progress Note Date of Service Sep 18, 2017. Subjective Pt evaluation today including: conversation w/ patient, physical exam, chart review, lab review Pain: reports R sided bladder and kidney pain PO Intake: tolerated 50% of BF Voiding: solano catheter in place This AM reports R sided back and abdominal pain even at rest. Denied n/v. Otherwise asymptomatic Constitutional: No fever, No chills Respiratory: No shortness of breath Cardiovascular: No chest pain Abdomen: + pain, + constipation, No nausea, No vomiting Male : + hematuria Medications Current Inpatient Medications Medications (Trade) Dose Ordered Sig/Young Route Start Time Stop Time Status Last Admin Dose Admin Glucose (Glucose 40% Gel) 15-30 GRAMS 15 GRAMS... UD PRN PO 09/17/17 17:30 10/17/17 17:29 Glucose (Glucose Chew Tab) 4-8 Tablets 4 Tabl... UD PRN PO 09/17/17 17:30 10/17/17 17:29 Dextrose (Dextrose 50% 50ML Syringe) 25-50ML OF 50% DW IV FOR... UD PRN IV 09/17/17 17:30 10/17/17 17:29 Glucagon (Glucagon Inj) 1 mg UD PRN SQ 09/17/17 17:30 10/17/17 17:29 Hydromorphone HCl (Dilaudid Inj) 1 mg Q4 PRN IV 09/17/17 21:00 10/01/17 20:59 09/18/17 16:32 1 MG Atorvastatin Calcium (Lipitor Tab) 80 mg QPM PO 09/17/17 21:00 10/17/17 20:59 09/17/17 21:19 80 MG Ciprofloxacin (Cipro Tab) 500 mg Q12H PO 09/17/17 21:00 09/20/17 23:59 09/18/17 09:20 500 MG Docusate Sodium (coLACE CAP) 100 mg BID PRN PO 09/17/17 17:45 10/17/17 17:44 Gabapentin (Neurontin Cap) 300 mg TID PO 09/17/17 21:00 10/17/17 20:59 09/18/17 13:26 300 MG Lactulose (Chronulac Syrup) 30 gm DAILY PRN PO 09/17/17 17:45 10/17/17 17:44 09/18/17 14:38 30 GM Lisinopril (Zestril Tab) 5 mg QAM PO 09/18/17 09:00 10/18/17 08:59 09/18/17 10:37 5 MG Metoprolol Tartrate (Lopressor Tab) 25 mg Q12 PO 09/17/17 21:00 10/17/17 20:59 09/18/17 09:20 25 MG Ondansetron HCl (Zofran Odt) 4 mg Q8 PRN SL 09/17/17 17:45 10/17/17 17:44 Oxybutynin Chloride (Ditropan Tab) 5 mg TID PRN PO 09/17/17 17:45 10/17/17 17:44 09/18/17 09:21 5 MG Phenazopyridine HCl (Pyridium Tab) 200 mg TID PRN PO 09/17/17 17:45 10/17/17 17:44 Senna (Senokot Tab) 17.2 mg QAM PO 09/18/17 09:00 10/18/17 08:59 09/18/17 09:20 17.2 MG Tamsulosin HCl (Flomax Cap) 0.4 mg DAILY PO 09/18/17 09:00 10/18/17 08:59 09/18/17 09:20 0.4 MG Miscellaneous (Iv Fluids Completed) 1 ea PRN PRN N/A 09/17/17 21:15 09/17/18 21:14 Magnesium Hydroxide (Milk Of Magnesia Susp) 30 ml Q6H PRN PO 09/18/17 08:45 10/18/17 08:44 09/18/17 09:29 30 ML Polyethylene (Miralax Powder Packet) 17 gm DAILY PO 09/18/17 09:00 10/18/17 08:59 Insulin Aspart (novoLOG ASPART) SLIDING SCALE If C... ACHS SC 09/18/17 12:00 10/18/17 05:59 09/18/17 13:28 6 UNITS Miscellaneous (Fentanyl Patch Remove & Waste) 1 ea Q3D@1300 ONCE N/A 09/20/17 13:00 09/20/17 13:01 Miscellaneous Information (Check Fentanyl Patch Placement) 1 ea QS N/A 09/18/17 16:00 09/20/17 13:01 09/18/17 15:46 1 EA Objective Vital Signs Date Time Temp Pulse Resp B/P (MAP) Pulse Ox O2 Delivery O2 Flow Rate FiO2 09/18/17 15:45 Room Air 09/18/17 15:40 37.1 56 18 117/73 (88) 93 Room Air 09/18/17 10:38 147/86 (106) 09/18/17 09:24 64 154/94 (114) 09/18/17 07:20 Room Air 09/18/17 06:57 36.9 72 17 95/65 (75) 95 Room Air 09/18/17 00:30 99 Room Air 09/17/17 22:51 36.7 62 18 107/66 (80) 96 Room Air 09/17/17 21:35 37.3 71 18 147/84 09/17/17 19:45 Room Air Physical Exam General Appearance: + mild distress Eyes: normal inspection, sclerae normal Respiratory/Chest: lungs clear, normal breath sounds Cardiovascular: regular rate, rhythm, no murmur Abdomen: normal bowel sounds, soft, + tenderness (RLQ/suprapubic TTP; +R sided CVA tenderness) Extremities: non-tender, no pedal edema Neurologic/Psychiatric: alert, oriented x 3 Skin: warm/dry Laboratory Results 09/18/17 06:16 Red Blood Count 4.10, Mean Corpuscular Volume 92.4, Mean Corpuscular Hemoglobin 30.7, Mean Corpuscular Hemoglobin Concent 33.2, Mean Platelet Volume 9.4, Neutrophils (%) (Auto) 71.7, Lymphocytes (%) (Auto) 13.7, Monocytes (%) (Auto) 12.0, Eosinophils (%) (Auto) 1.3, Basophils (%) (Auto) 0.3, Neutrophils # (Auto ) 5.10, Lymphocytes # (Auto) 0.97, Monocytes # (Auto) 0.85, Eosinophils # (Auto ) 0.09, Basophils # (Auto) 0.02 09/18/17 13:57 09/18/17 06:16 Test 09/18/17 06:16 09/18/17 16:59 White Blood Count 7.10 K/uL (4.8-10.8) Red Blood Count 4.10 M/uL (4.7-6.1) Hemoglobin 12.6 g/dL (14.0-18.0) Hematocrit 37.9 % (42-52) Mean Corpuscular Volume 92.4 fL (80-100) Mean Corpuscular Hemoglobin 30.7 pg (25-34) Mean Corpuscular Hemoglobin Concent 33.2 g/dl (32-36) Platelet Count 203 K/uL (130-400) Mean Platelet Volume 9.4 fL (7.4-10.4) Neutrophils (%) (Auto) 71.7 % Lymphocytes (%) (Auto) 13.7 % Monocytes (%) (Auto) 12.0 % Eosinophils (%) (Auto) 1.3 % Basophils (%) (Auto) 0.3 % Neutrophils # (Auto) 5.10 K/uL (1.4-6.5) Lymphocytes # (Auto) 0.97 K/uL (1.2-3.4) Monocytes # (Auto) 0.85 K/uL (0.11-0.59) Eosinophils # (Auto) 0.09 K/uL (0-0.5) Basophils # (Auto) 0.02 K/uL (0-0.2) RDW Standard Deviation 43.7 fL (36.4-46.3) RDW Coefficient of Variation 13.0 % (11.5-14.5) Immature Granulocyte % (Auto) 1.0 % Immature Granulocyte # (Auto) 0.07 K/uL (0.00-0.02) Anion Gap 4.0 mmol/L (3-11) Est Creatinine Clear Calc Drug Dose 58.3 ml/min Estimated GFR () 55.7 Estimated GFR (Non- 48.1 BUN/Creatinine Ratio 10.5 (10-20) Calcium Level 8.7 mg/dl (8.5-10.1) Bedside Glucose 144 mg/dl (70-99) Assessment and Plan 62 yoM with hx of invasive urothelial bladder cancer, CAD s/p MA/stent, HTN, HLD , DM, and NIDIA who presents with worsening gross hematuria and intractable pain likely from excessive straining due to chronic constipation. Intractable Pain 2/2 Invasive Urothelial Bladder Cancer with possible invasion into rectum - well controlled with IV Dilaudid and fentanyl patch - Hx of TURBT in July and exchange of R ureteral stent for worsening hydro in 09/07/17 - Abdominal CT: unchanged moderate R sided hydroureteronephrosis; ureteral stent in stable position, hemorrhagic debris anterior to Solano balloon within lumen of bladder, mod bladder wall thickening with mod perivascular stranding r/ ot cystitis,b/l non-obstructing renal calculi no ureteral calculi - Dilaudid 1mg IV q4h PRN for Pain - Continue home Flomax 0.4mg daily - Continue home Oxybutynin 5mg TID PRN - Continue home Pyridium 200mg TID PRN - Solano Catheter in place - Urology Consult - no surgical intervention at this time - hand irrigate solano qshift and PRN - Miralax 17g daily (refused today) and MOM 30ml this AM - Dulcolax and stool softner PRN; consider dulcolax supp PRN - Keep f/u 09/28/17 Gross Hematuria 2/2 Bladder Cancer - UA - 3+ Hematuria >30 RBC, >30 WBC red turbid - UCx NG < 1000 colonies - H/H q6h - stable this PM - Hold home Aspirin and no anticoagulation at this time Mildly elevated Cr - Creatinine 1.52 - Baseline appears to be 1.2 but lab as recently as 09/15 showed Cr of 1.66 - Daily BMP History of Klebsiella Septicemia 2/2 Complicated UTI with possible Right Sided Pyelonephritis - Continue Ciprofloxacin 500mg BID until 09/20/16 Hypertension - Continue home Lisinopril 5mg QAM - Metoprolol 25mg Q12H Constipation - Continue Lactulose 30g Q1H until BM. Max dose 4 - Received MOM 30ml Q6H PRN this AM Diabetes type 2 - Sliding Scale Insulin - goal 120-160; CF 25; Carb 1:8 - BSG AC and HS - Hold home Metformin and Sitagliptin NIDIA - CPAP machine ordered Hyperlipidemia - Continue home Atorvastatin 80mg QPM DVT - SCDs Code Status - Full Resuscitation Resident Physician Supervision Note: I interviewed and examined the patient. Discussed with Dr. Romero and agree with findings and plan as documented in the note. Any exceptions or clarifications are listed here: None Documented By: Jeferson Darden relates most of his pain to BMs and constipation. notes that he's tried a number of different bowel meds at [facility] wtout relief, hard to tell exactly what all he's taken and when, on directed questioning does note that he's taken miralax 3-4 doses in a day without meaningful results vitals noted nad breathing unlabored no pallor or icterus, abd soft moderate distended no guarding/rebound, (+) suprapubic tenderness pain - relates to cancer and constipation -agree w transitioning to "basal bolus" type pain regimen -bowel regimen - for now lactulose to affect BMs then transition to hopefully more reliable regimen at home Resident Involvement: Resident Care Provided Care Provided: Adult Hospital Medicine
[2017-09-18 14:19] LABS: HEMATOCRIT 34.9 % (42-52); HEMOGLOBIN 11.8 g/dL (14.0-18.0)
[2017-09-18] MEDS: CHECK FENTANYL PATCH PLACEMENT SCH (15:46)
[2017-09-18] MEDS: LACTULOSE SYRUP 30 GM/45 ML UDP PO SCH ×4 (16:28→19:00)
[2017-09-18] MEDS: ATORVASTATIN 40 MG TAB PO SCH (20:45)
[2017-09-19] MEDS: CHECK FENTANYL PATCH PLACEMENT SCH ×4 (00:18→23:41)
[2017-09-19] MEDS: HYDROmorphone INJ 1 MG/ML SYR IV PRN ×4 (02:34→17:22)
[2017-09-19 07:36] VITALS: BP 119/80; PULSE 80; TEMP 36.9; O2SAT 95
[2017-09-19] MEDS ORDERED: SIMETHICONE 80 MG CHEW PO PRN (09:00)
[2017-09-19] MEDS: GABAPENTIN 300 MG CAP PO SCH ×3 (09:04→21:28)
[2017-09-19] MEDS: TAMSULOSIN HCL 0.4 MG CAP PO SCH (09:04)
[2017-09-19] MEDS: LISINOPRIL 5 MG TAB PO SCH (09:04)
--- NOTE | 2017-09-19 09:04 | Progress Note ---
Subjective Date of Service: Sep 19, 2017. Subjective Pt evaluation today including: conversation w/ patient, chart review, lab review Voiding: solano catheter in place (patent, draining clear, yellow urine) 62 yo male with urothelial carcinoma, gross hematuria. Pt reports large BMs yesterday. BMs clear liquid now. C/o gas pains this morning. Says he is not happy with his pain control. He is also upset that he does not have Metamucil ordered with each meal, which he feels helps to control his constipation. He does not want to take Miralax, as he feels this upsets his stomach. Pt also refusing solano irrigation as he said this was not done in a sterile fashion, and he does not want to continue the irrigations. Forturnately his urine is now clear. Prelim UC&S is negative. One blood culture preliminarily positive, the second is preliminarily negative. Problem List Medical Problems: (1) Abdominal pain Status: Acute (2) Bladder neoplasm Status: Acute (3) Constipation Status: Acute (4) Intractable abdominal pain Status: Acute (5) UTI (urinary tract infection) Status: Acute Review of Systems Constitutional: No fever, No chills Respiratory: No shortness of breath Cardiac: No chest pain Abdomen: + pain (gas pain ), No nausea, No vomiting, No constipation Male : No hematuria Heme: No abnormal bleeding/bruising Objective Vital Signs Date Time Temp Pulse Resp B/P (MAP) Pulse Ox O2 Delivery O2 Flow Rate FiO2 09/19/17 07:36 36.9 80 16 119/80 (93) 95 Room Air 09/18/17 22:59 36.9 63 15 110/69 (83) 95 Room Air 09/18/17 15:45 Room Air 09/18/17 15:40 37.1 56 18 117/73 (88) 93 Room Air 09/18/17 10:38 147/86 (106) 09/18/17 09:24 64 154/94 (114) Physical Exam General Appearance: no apparent distress Eyes: normal inspection ENT: hearing grossly normal Neck: no JVD Respiratory/Chest: no respiratory distress, no accessory muscle use Cardiovascular: no JVD Extremities: normal inspection Neurologic/Psychiatric: alert, normal mood/affect, oriented x 3 Skin: normal color Laboratory Results Last 24 Hours Test 09/18/17 11:59 09/18/17 13:57 09/18/17 16:59 09/18/17 20:14 Bedside Glucose 142 mg/dl 144 mg/dl 176 mg/dl Hemoglobin 11.8 g/dL Hematocrit 34.9 % Test 09/19/17 04:44 09/19/17 07:19 Assessment and Plan A/P: Bladder cancer, gross hematuria AFVSS. Hematuria resolved. Can d/c solano irrigations for now as urine is clear. Resume PRN. Will order him some Metamucil TID with meals. Will d/c the Miralax. Will also order some simethicone to hopefully help with his gas pains. Pt OK for d/c home when OK with primary service. Keep f/u with Dr. Vaca on 09-28 as scheduled and f/u with oncology for chemo as scheduled for next week as well.
[2017-09-19] MEDS: METOPROLOL TARTRATE 25 MG TAB PO SCH ×2 (09:05→21:00)
[2017-09-19] MEDS: CIPROFLOXACIN 500 MG TAB PO SCH ×2 (09:05→21:26)
[2017-09-19] MEDS: INSULIN ASPART 100 UNITS/ML 3 ML PEN SC SCH ×4 (09:10→21:00)
[2017-09-19 09:25] LABS: HEMATOCRIT 37.1 % (42-52); HEMOGLOBIN 12.7 g/dL (14.0-18.0); MEAN CELL VOLUME 90.7 fL (80-100); MEAN CORPUSCULAR HEMOGLOBIN 31.1 pg (25-34); MEAN CORPUSCULAR HGB CONC 34.2 g/dl (32-36); MEAN PLATELET VOLUME 9.4 fL (7.4-10.4); PLATELET COUNT 208 K/uL (130-400); RED CELL DISTRIBUTION WIDTH CV 12.8 % (11.5-14.5); RED CELL DISTRIBUTION WIDTH SD 42.3 fL (36.4-46.3); WHITE BLOOD COUNT 9.78 K/uL (4.8-10.8)
[2017-09-19] MEDS ORDERED: FENTANYL PATCH REMOVE & WASTE SCH (09:59)
[2017-09-19] MEDS ORDERED: FENTANYL 75 MCG/HR TDSY TD SCH (10:00)
[2017-09-19] MEDS: OXYBUTYNIN CHLORIDE 5 MG TAB PO PRN ×2 (10:00→16:29)
[2017-09-19 10:25] LABS: ALBUMIN 3.3 gm/dl (3.4-5.0); CALCIUM 8.6 mg/dl (8.5-10.1); CREATININE 1.44 mg/dl (0.60-1.40); POTASSIUM 3.9 mmol/L (3.5-5.1)
[2017-09-19 10:28] LABS: TOTAL PROTEIN 7.7 gm/dl (6.4-8.2)
[2017-09-19] MEDS: PSYLLIUM 58.6% PWD PACK S\\F PO SCH ×2 (13:07→18:14)
[2017-09-19 15:54] VITALS: BP 96/64; PULSE 69; TEMP 36.4; O2SAT 96
[2017-09-19] MEDS: DOCUSATE SODIUM 100 MG CAP PO SCH ×2 (18:31→21:26)
--- NOTE | 2017-09-19 19:06 | Family Medicine Progress Note ---
Progress Note Date of Service Sep 19, 2017. Subjective Pt evaluation today including: conversation w/ patient, physical exam, chart review, lab review Pain: reports diffuse gas related Abd pain PO Intake: tolerating Voiding: solano catheter in place (dark yellow urine ) This AM pt reports severe diffuse gas related abdominal pain. Reports persistent bladder pain. Denies n/v. Otherwise asymptomatic. ON: Had numerous BMs s/p 3 doses of lactulose 30mg Constitutional: No fever, No chills Respiratory: No shortness of breath Cardiovascular: No chest pain Abdomen: + pain, No nausea, No vomiting, No constipation Medications Current Inpatient Medications Medications (Trade) Dose Ordered Sig/Young Route Start Time Stop Time Status Last Admin Dose Admin Glucose (Glucose 40% Gel) 15-30 GRAMS 15 GRAMS... UD PRN PO 09/17/17 17:30 10/17/17 17:29 Glucose (Glucose Chew Tab) 4-8 Tablets 4 Tabl... UD PRN PO 09/17/17 17:30 10/17/17 17:29 Dextrose (Dextrose 50% 50ML Syringe) 25-50ML OF 50% DW IV FOR... UD PRN IV 09/17/17 17:30 10/17/17 17:29 Glucagon (Glucagon Inj) 1 mg UD PRN SQ 09/17/17 17:30 10/17/17 17:29 Hydromorphone HCl (Dilaudid Inj) 1 mg Q4 PRN IV 09/17/17 21:00 10/01/17 20:59 09/19/17 17:22 1 MG Atorvastatin Calcium (Lipitor Tab) 80 mg QPM PO 09/17/17 21:00 10/17/17 20:59 09/18/17 20:45 80 MG Ciprofloxacin (Cipro Tab) 500 mg Q12H PO 09/17/17 21:00 09/20/17 23:59 09/19/17 09:05 500 MG Lactulose (Chronulac Syrup) 30 gm DAILY PRN PO 09/17/17 17:45 10/17/17 17:44 09/18/17 14:38 30 GM Lisinopril (Zestril Tab) 5 mg QAM PO 09/18/17 09:00 10/18/17 08:59 09/19/17 09:04 5 MG Metoprolol Tartrate (Lopressor Tab) 25 mg Q12 PO 09/17/17 21:00 10/17/17 20:59 09/19/17 09:05 25 MG Ondansetron HCl (Zofran Odt) 4 mg Q8 PRN SL 09/17/17 17:45 10/17/17 17:44 Oxybutynin Chloride (Ditropan Tab) 5 mg TID PRN PO 09/17/17 17:45 10/17/17 17:44 09/19/17 16:29 5 MG Phenazopyridine HCl (Pyridium Tab) 200 mg TID PRN PO 09/17/17 17:45 10/17/17 17:44 Tamsulosin HCl (Flomax Cap) 0.4 mg DAILY PO 09/18/17 09:00 10/18/17 08:59 09/19/17 09:04 0.4 MG Miscellaneous (Iv Fluids Completed) 1 ea PRN PRN N/A 09/17/17 21:15 09/17/18 21:14 Magnesium Hydroxide (Milk Of Magnesia Susp) 30 ml Q6H PRN PO 09/18/17 08:45 10/18/17 08:44 09/18/17 09:29 30 ML Insulin Aspart (novoLOG ASPART) SLIDING SCALE If C... ACHS SC 09/18/17 12:00 10/18/17 05:59 09/19/17 18:30 9 UNITS Psyllium Hydrophilic Mucilloid (Metamucil Powder) 1 pkt TIDM PO 09/19/17 12:30 10/19/17 12:29 09/19/17 18:14 1 PKT Simethicone (Mylicon Chew Tab) 80 mg Q6H PRN PO 09/19/17 09:00 10/19/17 08:59 09/19/17 13:08 80 MG Fentanyl (Duragesic Patch) 75 mcg Q72H TD 09/19/17 10:00 10/03/17 09:59 09/19/17 10:00 75 MCG Miscellaneous (Fentanyl Patch Remove & Waste) 1 ea Q72H N/A 09/19/17 09:59 10/19/17 09:58 09/19/17 10:03 1 EA Miscellaneous Information (Check Fentanyl Patch Placement) 1 ea QS N/A 1/23/18 16:00 10/19/17 15:59 09/19/17 16:04 1 EA Docusate Sodium (coLACE CAP) 100 mg BID PO 09/19/17 17:30 10/17/17 17:44 09/19/17 18:31 100 MG Gabapentin (Neurontin Cap) 300 mg BID PO 09/19/17 21:00 10/17/17 20:59 Gabapentin (Neurontin Cap) 600 mg QAM PO 09/20/17 09:00 10/20/17 08:59 Oxycodone/ Acetaminophen (Percocet 10-325MG Tab) 1 tab Q4H PRN PO 09/19/17 17:30 10/03/17 17:29 Objective Vital Signs Date Time Temp Pulse Resp B/P (MAP) Pulse Ox O2 Delivery O2 Flow Rate FiO2 09/19/17 16:05 Room Air 09/19/17 15:54 36.4 69 18 96/64 (75) 96 Room Air 09/19/17 07:36 36.9 80 16 119/80 (93) 95 Room Air 09/19/17 07:25 Room Air 09/18/17 22:59 36.9 63 15 110/69 (83) 95 Room Air Physical Exam General Appearance: no apparent distress Eyes: normal inspection, sclerae normal Respiratory/Chest: lungs clear, normal breath sounds Cardiovascular: regular rate, rhythm, no murmur Abdomen: normal bowel sounds, soft, + distended, + tenderness (diffuse TTP) Extremities: non-tender, no pedal edema Neurologic/Psychiatric: alert Skin: warm/dry Laboratory Results 09/19/17 09:03 09/19/17 09:03 Test 09/19/17 09:03 09/19/17 12:11 Red Blood Count 4.09 M/uL (4.7-6.1) Mean Corpuscular Volume 90.7 fL (80-100) Mean Corpuscular Hemoglobin 31.1 pg (25-34) Mean Corpuscular Hemoglobin Concent 34.2 g/dl (32-36) RDW Standard Deviation 42.3 fL (36.4-46.3) RDW Coefficient of Variation 12.8 % (11.5-14.5) Mean Platelet Volume 9.4 fL (7.4-10.4) Anion Gap 10.0 mmol/L (3-11) Est Creatinine Clear Calc Drug Dose 61.6 ml/min Estimated GFR () 59.5 Estimated GFR (Non- 51.3 BUN/Creatinine Ratio 10.9 (10-20) Calcium Level 8.6 mg/dl (8.5-10.1) Total Bilirubin 0.5 mg/dl (0.2-1) Direct Bilirubin 0.1 mg/dl (0-0.2) Aspartate Amino Transf (AST/SGOT) 41 U/L (15-37) Alanine Aminotransferase (ALT/SGPT) 117 U/L (12-78) Alkaline Phosphatase 89 U/L (45-117) Total Protein 7.7 gm/dl (6.4-8.2) Albumin 3.3 gm/dl (3.4-5.0) Bedside Glucose 136 mg/dl (70-99) Assessment and Plan 62 yoM with hx of invasive urothelial bladder cancer, CAD s/p [place]/stent, HTN, HLD , DM, and NIDIA who presented with worsening gross hematuria and intractable pain likely from excessive straining due to chronic constipation. Intractable Pain 2/2 Invasive Urothelial Bladder Cancer with possible invasion into rectum - persistent - Hx of TURBT in July and exchange of R ureteral stent for worsening hydro in 09/07/17 - Abdominal CT: unchanged moderate R sided hydroureteronephrosis; ureteral stent in stable position, hemorrhagic debris anterior to Solano balloon within lumen of bladder, mod bladder wall thickening with mod perivascular stranding r/ ot cystitis,b/l non-obstructing renal calculi no ureteral calculi - Started on Percocet 10-325 Q4H PRN for moderate pain - Dilaudid 1mg IV q4h PRN for severe Pain - Increased Gabapentin 300mg BID and 600mg QAM - Continue home Flomax 0.4mg daily - Continue home Oxybutynin 5mg TID PRN - Continue home Pyridium 200mg TID PRN - Solano Catheter in place draining dark urine - Urology Consult - no surgical intervention at this time - Metamucil TID with meals - Semithicone 80mg PO Q6H PRN for gas pains - Dced Miralax - Keep f/u with Dr. Vaca on 09/28/17 and oncology for next week Gross Hematuria 2/2 Bladder Cancer - resolved - UA - 3+ Hematuria >30 RBC, >30 WBC red turbid - UCx NG < 1000 colonies - H/H q6h - stable this AM - Hold home Aspirin and no anticoagulation at this time Mildly elevated Cr - improving - Creatinine 1.52 --> 1.44 - Baseline appears to be 1.2 but lab as recently as 09/15 showed Cr of 1.66 - Daily BMP History of Klebsiella Septicemia 2/2 Complicated UTI with possible Right Sided Pyelonephritis - Continue Ciprofloxacin 500mg BID until 09/20/16 Hypertension - Continue home Lisinopril 5mg QAM - Metoprolol 25mg Q12H Constipation - resolved - Continue Lactulose 30g PRN - take if no BM in 2 days (a dose every hr up to 3 doses until has a BM) - Started on Colace 100mg BID Diabetes type 2 - Sliding Scale Insulin - goal 120-160; CF 25; Carb 1:8 - BSG AC and HS - Hold home Metformin and Sitagliptin NIDIA - CPAP machine ordered Hyperlipidemia - Continue home Atorvastatin 80mg QPM DVT: SCDs Code Status: Full Resuscitation Resident Physician Supervision Note: I interviewed and examined the patient. Discussed with Dr. Romero and agree with findings and plan as documented in the note. Any exceptions or clarifications are listed here: None Documented By: Jeferson Darden had BM's now crampy abdominal pain some, also ongoing chronic abdominal pain not well controlled emily noted less distress but still uncomfortable constipation - improved, base bowel regimen cancer pain - increase basal pain control, follow for ?improvement after gas pain from lactulose subsides otherwise as above Resident Involvement: Resident Care Provided Care Provided: Adult Hospital Medicine
[2017-09-19] MEDS: ATORVASTATIN 40 MG TAB PO SCH (21:27)
[2017-09-19 21:30] VITALS: BP 98/64
[2017-09-19] MEDS: OXYCODONE/ACETAMINOPHEN 10/325MG TAB PO PRN (23:46)
[2017-09-20 00:15] VITALS: BP 110/60; PULSE 60; TEMP 36.8; O2SAT 95
[2017-09-20] MEDS: OXYCODONE/ACETAMINOPHEN 10/325MG TAB PO PRN ×4 (06:10→21:49)
[2017-09-20 07:00] VITALS: BP 102/74; PULSE 66; TEMP 36.8; O2SAT 96
[2017-09-20] MEDS: CHECK FENTANYL PATCH PLACEMENT SCH ×2 (08:00→15:56)
[2017-09-20 08:34] LABS: HEMATOCRIT 35.3 % (42-52); MEAN CELL VOLUME 90.3 fL (80-100); MEAN CORPUSCULAR HEMOGLOBIN 30.7 pg (25-34); MEAN PLATELET VOLUME 9.7 fL (7.4-10.4); PLATELET COUNT 215 K/uL (130-400); RED CELL DISTRIBUTION WIDTH CV 12.9 % (11.5-14.5); RED CELL DISTRIBUTION WIDTH SD 42.2 fL (36.4-46.3); WHITE BLOOD COUNT 9.11 K/uL (4.8-10.8)
--- NOTE | 2017-09-20 08:47 | Progress Note ---
Subjective Date of Service: Sep 20, 2017. Subjective Pt evaluation today including: conversation w/ patient, chart review, lab review Voiding: solano catheter in place (patent, draining clear, yellow urine) 62 yo male with urothelial carcinoma. Pt reports his gas pain has improved. No BMs this morning, but has gone several times over the past few days. Hematuria resolved. Denies n/v. Blood culture preliminarily positive, but still pending. Problem List Medical Problems: (1) Abdominal pain Status: Acute (2) Bladder neoplasm Status: Acute (3) Constipation Status: Acute (4) Intractable abdominal pain Status: Acute (5) UTI (urinary tract infection) Status: Acute Review of Systems Constitutional: No fever, No chills Respiratory: No shortness of breath Cardiac: No chest pain Abdomen: No pain, No nausea, No vomiting Male : No hematuria Heme: No abnormal bleeding/bruising Objective Vital Signs Date Time Temp Pulse Resp B/P (MAP) Pulse Ox O2 Delivery O2 Flow Rate FiO2 09/20/17 07:00 36.8 66 16 102/74 (83) 96 Room Air 09/20/17 00:15 36.8 60 16 110/60 (77) 95 Room Air 09/19/17 23:40 Room Air 09/19/17 21:30 98/64 (75) 09/19/17 16:05 Room Air 09/19/17 15:54 36.4 69 18 96/64 (75) 96 Room Air Physical Exam General Appearance: no apparent distress Eyes: normal inspection ENT: hearing grossly normal Neck: no JVD Respiratory/Chest: no respiratory distress, no accessory muscle use Cardiovascular: no JVD Extremities: normal inspection Neurologic/Psychiatric: alert, normal mood/affect, oriented x 3 Skin: normal color Laboratory Results Last 24 Hours Test 09/19/17 09:03 09/19/17 12:11 09/19/17 16:56 09/19/17 20:38 White Blood Count 9.78 K/uL Red Blood Count 4.09 M/uL Hemoglobin 12.7 g/dL Hematocrit 37.1 % Mean Corpuscular Volume 90.7 fL Mean Corpuscular Hemoglobin 31.1 pg Mean Corpuscular Hemoglobin Concent 34.2 g/dl RDW Standard Deviation 42.3 fL RDW Coefficient of Variation 12.8 % Platelet Count 208 K/uL Mean Platelet Volume 9.4 fL Sodium Level 132 mmol/L Potassium Level 3.9 mmol/L Chloride Level 100 mmol/L Carbon Dioxide Level 22 mmol/L Anion Gap 10.0 mmol/L Blood Urea Nitrogen 16 mg/dl Creatinine 1.44 mg/dl Est Creatinine Clear Calc Drug Dose 61.6 ml/min Estimated GFR () 59.5 Estimated GFR (Non- 51.3 BUN/Creatinine Ratio 10.9 Random Glucose 149 mg/dl Calcium Level 8.6 mg/dl Total Bilirubin 0.5 mg/dl Direct Bilirubin 0.1 mg/dl Aspartate Amino Transf (AST/SGOT) 41 U/L Alanine Aminotransferase (ALT/SGPT) 117 U/L Alkaline Phosphatase 89 U/L Total Protein 7.7 gm/dl Albumin 3.3 gm/dl Bedside Glucose 136 mg/dl 133 mg/dl 132 mg/dl Test 09/20/17 07:47 White Blood Count 9.11 K/uL Red Blood Count 3.91 M/uL Hemoglobin 12.0 g/dL Hematocrit 35.3 % Mean Corpuscular Volume 90.3 fL Mean Corpuscular Hemoglobin 30.7 pg Mean Corpuscular Hemoglobin Concent 34.0 g/dl RDW Standard Deviation 42.2 fL RDW Coefficient of Variation 12.9 % Platelet Count 215 K/uL Mean Platelet Volume 9.7 fL Assessment and Plan A/P: Bladder cancer, gross hematuria AFVSS. Hematuria resolved. Can d/c solano irrigations for now as urine is clear. Resume PRN. Continue constipation management. I think this is a huge factor in his comfort levels. He also reports he wants to continue Percocet as it is effective for his pain control. We did discuss the risk of worsening constipation on Percocet and if he needs to take oxybutynin. Pt OK for d/c home when OK with primary service. Keep f/u with Dr. Vaca on 09-28 as scheduled and f/u with oncology for chemo as scheduled for next week as well. No further management at this time. Will sign off for now. Recall PRN issues.
[2017-09-20] MEDS ORDERED: GABAPENTIN 300 MG CAP PO SCH (09:00)
[2017-09-20 09:13] LABS: ALT/SGPT 91 U/L (12-78); AST/SGOT 31 U/L (15-37); BLOOD UREA NITROGEN 15 mg/dl (7-18); CARBON DIOXIDE 24 mmol/L (21-32); CREATININE 1.38 mg/dl (0.60-1.40); GLUCOSE 114 mg/dl (70-99); POTASSIUM 4.1 mmol/L (3.5-5.1); SODIUM 132 mmol/L (136-145)
[2017-09-20 09:15] LABS: ALKALINE PHOSPHATASE 81 U/L (45-117); TOTAL PROTEIN 6.9 gm/dl (6.4-8.2)
[2017-09-20] MEDS: PSYLLIUM 58.6% PWD PACK S\\F PO SCH ×3 (09:26→17:54)
[2017-09-20] MEDS: CIPROFLOXACIN 500 MG TAB PO SCH ×2 (09:26→21:47)
[2017-09-20] MEDS: TAMSULOSIN HCL 0.4 MG CAP PO SCH (09:27)
[2017-09-20] MEDS: METOPROLOL TARTRATE 25 MG TAB PO SCH ×2 (09:27→21:00)
[2017-09-20] MEDS: LISINOPRIL 5 MG TAB PO SCH (09:27)
[2017-09-20] MEDS: GABAPENTIN 300 MG CAP PO SCH (09:27)
[2017-09-20] MEDS: INSULIN ASPART 100 UNITS/ML 3 ML PEN SC SCH ×4 (09:39→21:00)
[2017-09-20] MEDS ORDERED: DOCUSATE SODIUM 100 MG CAP PO SCH (10:15)
[2017-09-20] MEDS ORDERED: FENTANYL PATCH REMOVE & WASTE ONE (13:00)
[2017-09-20] MEDS: OXYBUTYNIN CHLORIDE 5 MG TAB PO PRN (13:02)
[2017-09-20 15:19] VITALS: BP 101/65; PULSE 59; TEMP 36.9; O2SAT 97
[2017-09-20] MEDS: MAGNESIUM HYDROXIDE SUSP 30 ML UDC PO PRN (19:05)
--- NOTE | 2017-09-20 19:17 | Family Medicine Progress Note ---
Progress Note Date of Service Sep 20, 2017. Subjective Pt evaluation today including: conversation w/ patient, physical exam, chart review, lab review Pain: reports better controlled bladder pain PO Intake: tolerating Voiding: solano catheter in place (draining yellow urine no blood) This AM reports better control of bladder pain and decreased R kidney pain. Denies any n/v. Tolerating diet. Has not had a BM since yesterday morning Constitutional: No fever, No chills Respiratory: No shortness of breath Cardiovascular: No chest pain Abdomen: + pain, No nausea, No vomiting, No diarrhea, No constipation Medications Current Inpatient Medications Medications (Trade) Dose Ordered Sig/Young Route Start Time Stop Time Status Last Admin Dose Admin Glucose (Glucose 40% Gel) 15-30 GRAMS 15 GRAMS... UD PRN PO 09/17/17 17:30 10/17/17 17:29 Glucose (Glucose Chew Tab) 4-8 Tablets 4 Tabl... UD PRN PO 09/17/17 17:30 10/17/17 17:29 Dextrose (Dextrose 50% 50ML Syringe) 25-50ML OF 50% DW IV FOR... UD PRN IV 09/17/17 17:30 10/17/17 17:29 Glucagon (Glucagon Inj) 1 mg UD PRN SQ 09/17/17 17:30 10/17/17 17:29 Hydromorphone HCl (Dilaudid Inj) 1 mg Q4 PRN IV 09/17/17 21:00 10/01/17 20:59 09/19/17 17:22 1 MG Atorvastatin Calcium (Lipitor Tab) 80 mg QPM PO 09/17/17 21:00 10/17/17 20:59 09/19/17 21:27 80 MG Ciprofloxacin (Cipro Tab) 500 mg Q12H PO 09/17/17 21:00 09/20/17 23:59 09/20/17 09:26 500 MG Lactulose (Chronulac Syrup) 30 gm DAILY PRN PO 09/17/17 17:45 10/17/17 17:44 09/18/17 14:38 30 GM Lisinopril (Zestril Tab) 5 mg QAM PO 09/18/17 09:00 10/18/17 08:59 09/20/17 09:27 5 MG Metoprolol Tartrate (Lopressor Tab) 25 mg Q12 PO 09/17/17 21:00 10/17/17 20:59 09/20/17 09:27 25 MG Ondansetron HCl (Zofran Odt) 4 mg Q8 PRN SL 09/17/17 17:45 10/17/17 17:44 Oxybutynin Chloride (Ditropan Tab) 5 mg TID PRN PO 09/17/17 17:45 10/17/17 17:44 09/20/17 13:02 5 MG Phenazopyridine HCl (Pyridium Tab) 200 mg TID PRN PO 09/17/17 17:45 10/17/17 17:44 Tamsulosin HCl (Flomax Cap) 0.4 mg DAILY PO 09/18/17 09:00 10/18/17 08:59 09/20/17 09:27 0.4 MG Miscellaneous (Iv Fluids Completed) 1 ea PRN PRN N/A 09/17/17 21:15 09/17/18 21:14 Magnesium Hydroxide (Milk Of Magnesia Susp) 30 ml Q6H PRN PO 09/18/17 08:45 10/18/17 08:44 09/20/17 19:05 30 ML Insulin Aspart (novoLOG ASPART) SLIDING SCALE If C... ACHS SC 09/18/17 12:00 10/18/17 05:59 09/20/17 18:00 7 UNITS Psyllium Hydrophilic Mucilloid (Metamucil Powder) 1 pkt TIDM PO 09/19/17 12:30 10/19/17 12:29 09/20/17 17:54 1 PKT Simethicone (Mylicon Chew Tab) 80 mg Q6H PRN PO 09/19/17 09:00 10/19/17 08:59 09/19/17 13:08 80 MG Fentanyl (Duragesic Patch) 75 mcg Q72H TD 09/19/17 10:00 10/03/17 09:59 09/19/17 10:00 75 MCG Miscellaneous (Fentanyl Patch Remove & Waste) 1 ea Q72H N/A 09/19/17 09:59 10/19/17 09:58 09/19/17 10:03 1 EA Miscellaneous Information (Check Fentanyl Patch Placement) 1 ea QS N/A 09/19/17 16:00 10/19/17 15:59 09/20/17 15:56 1 EA Gabapentin (Neurontin Cap) 300 mg BID PO 09/19/17 21:00 10/17/17 20:59 09/20/17 09:27 300 MG Gabapentin (Neurontin Cap) 600 mg QAM PO 09/20/17 09:00 10/20/17 08:59 Oxycodone/ Acetaminophen (Percocet 10-325MG Tab) 1 tab Q4H PRN PO 09/19/17 17:30 10/03/17 17:29 09/20/17 16:41 1 TAB Docusate Sodium (coLACE CAP) 100 mg BID PO 09/20/17 21:00 10/20/17 20:59 Objective Vital Signs Date Time Temp Pulse Resp B/P (MAP) Pulse Ox O2 Delivery O2 Flow Rate FiO2 09/20/17 16:50 Room Air 09/20/17 15:19 36.9 59 18 101/65 (77) 97 Room Air 09/20/17 07:25 Room Air 09/20/17 07:00 36.8 66 16 102/74 (83) 96 Room Air 09/20/17 00:15 36.8 60 16 110/60 (77) 95 Room Air 09/19/17 23:40 Room Air 09/19/17 21:30 98/64 (75) Physical Exam General Appearance: no apparent distress Eyes: normal inspection, sclerae normal Respiratory/Chest: lungs clear, normal breath sounds Cardiovascular: regular rate, rhythm, no murmur Abdomen: normal bowel sounds, soft, + tenderness (RLQ and suprapubic TTP) Extremities: non-tender, no pedal edema Neurologic/Psychiatric: alert, oriented x 3 Skin: warm/dry Laboratory Results 09/20/17 07:47 09/20/17 07:47 Test 09/20/17 07:47 09/20/17 12:33 Red Blood Count 3.91 M/uL (4.7-6.1) Mean Corpuscular Volume 90.3 fL (80-100) Mean Corpuscular Hemoglobin 30.7 pg (25-34) Mean Corpuscular Hemoglobin Concent 34.0 g/dl (32-36) RDW Standard Deviation 42.2 fL (36.4-46.3) RDW Coefficient of Variation 12.9 % (11.5-14.5) Mean Platelet Volume 9.7 fL (7.4-10.4) Anion Gap 8.0 mmol/L (3-11) Est Creatinine Clear Calc Drug Dose 64.2 ml/min Estimated GFR () 62.6 Estimated GFR (Non- 54.0 BUN/Creatinine Ratio 10.7 (10-20) Calcium Level 9.0 mg/dl (8.5-10.1) Total Bilirubin 0.4 mg/dl (0.2-1) Direct Bilirubin < 0.1 mg/dl (0-0.2) Aspartate Amino Transf (AST/SGOT) 31 U/L (15-37) Alanine Aminotransferase (ALT/SGPT) 91 U/L (12-78) Alkaline Phosphatase 81 U/L (45-117) Total Protein 6.9 gm/dl (6.4-8.2) Albumin 3.0 gm/dl (3.4-5.0) Bedside Glucose 133 mg/dl (70-99) Assessment and Plan 62 yoM with hx of invasive urothelial bladder cancer, CAD s/p [place]/stent, HTN, HLD , DM, and NIDIA who presented with worsening gross hematuria and intractable pain likely from excessive straining due to chronic constipation. Intractable Pain 2/2 Invasive Urothelial Bladder Cancer with possible invasion into rectum - better controlled - Hx of TURBT in July and exchange of R ureteral stent for worsening hydro in 09/07/17 - Abdominal CT: unchanged moderate R sided hydroureteronephrosis; ureteral stent in stable position, hemorrhagic debris anterior to Solano balloon within lumen of bladder, mod bladder wall thickening with mod perivascular stranding r/ ot cystitis,b/l non-obstructing renal calculi no ureteral calculi - Started on Percocet 10-325 Q4H PRN for moderate pain which is better controlling pain - Dilaudid 1mg IV q4h PRN for severe Pain - Increased Gabapentin 600mg BID and 300mg QAM - Continue home Flomax 0.4mg daily - Continue home Oxybutynin 5mg TID PRN - Continue home Pyridium 200mg TID PRN - Solano Catheter in place draining yellow urine - Urology Consult - no surgical intervention at this time - Metamucil TID with meals - Semithicone 80mg PO Q6H PRN for gas pains - Dced Miralax - Keep f/u with Dr. Vaca on 09/28/17 and oncology for next week Gross Hematuria 2/2 Bladder Cancer - resolved - UA - 3+ Hematuria >30 RBC, >30 WBC red turbid - UCx NG < 1000 colonies - H/H q6h - stable this AM - Hold home Aspirin and no anticoagulation at this time Mildly elevated Cr - improving - Creatinine 1.52 --> 1.38 - Baseline appears to be 1.2 but lab as recently as 09/15 showed Cr of 1.66 - Daily BMP History of Klebsiella Septicemia 2/2 Complicated UTI with possible Right Sided Pyelonephritis - Continue Ciprofloxacin 500mg BID until 09/20/16 Hypertension - Continue home Lisinopril 5mg QAM - Metoprolol 25mg Q12H Constipation - resolved - Continue Lactulose 30g PRN - take if no BM in 2 days (a dose every hr up to 3 doses until has a BM) - Started on Colace 100mg BID Diabetes type 2 - Sliding Scale Insulin - goal 120-160; CF 25; Carb 1:8 - BSG AC and HS - Hold home Metformin and Sitagliptin NIDIA - CPAP machine ordered Hyperlipidemia - Continue home Atorvastatin 80mg QPM DVT: SCDs Code Status: Full Resuscitation Resident Physician Supervision Note: I interviewed and examined the patient. Discussed with Dr. Romero and agree with findings and plan as documented in the note. Any exceptions or clarifications are listed here: None Documented By: Jeferson Darden doing better feeling better thinks pain under better control vitals noted nad breathing unlabored no pallor or icterus constipation - improved, bowel regimen pain - improving - fentanyl + percocet + gabapentin Resident Involvement: Resident Care Provided Care Provided: Adult Hospital Medicine
[2017-09-20] MEDS ORDERED: GABAPENTIN 300 MG CAP PO ONE (20:00)
[2017-09-20] MEDS: ATORVASTATIN 40 MG TAB PO SCH (21:48)
[2017-09-20] MEDS: DOCUSATE SODIUM 100 MG CAP PO SCH (21:51)
[2017-09-20 21:54] VITALS: BP 102/65; PULSE 61
[2017-09-20] MEDS: GABAPENTIN 600 MG TAB PO SCH (22:12)
[2017-09-20 22:52] VITALS: BP 109/67; PULSE 59; TEMP 36.6; O2SAT 96
[2017-09-21] MEDS: CHECK FENTANYL PATCH PLACEMENT SCH ×3 (00:11→16:28)
[2017-09-21] MEDS: OXYCODONE/ACETAMINOPHEN 10/325MG TAB PO PRN ×3 (06:31→16:34)
[2017-09-21 06:51] LABS: HEMATOCRIT 34.9 % (42-52); HEMOGLOBIN 11.6 g/dL (14.0-18.0); MEAN CELL VOLUME 90.4 fL (80-100); MEAN CORPUSCULAR HEMOGLOBIN 30.1 pg (25-34); MEAN CORPUSCULAR HGB CONC 33.2 g/dl (32-36); MEAN PLATELET VOLUME 9.8 fL (7.4-10.4); PLATELET COUNT 222 K/uL (130-400); RED CELL DISTRIBUTION WIDTH CV 12.8 % (11.5-14.5); RED CELL DISTRIBUTION WIDTH SD 41.9 fL (36.4-46.3); WHITE BLOOD COUNT 7.76 K/uL (4.8-10.8)
[2017-09-21 07:19] LABS: ALBUMIN 2.9 gm/dl (3.4-5.0); CALCIUM 8.7 mg/dl (8.5-10.1); CREATININE 1.58 mg/dl (0.60-1.40); POTASSIUM 4.4 mmol/L (3.5-5.1)
[2017-09-21 07:22] LABS: TOTAL PROTEIN 6.9 gm/dl (6.4-8.2)
[2017-09-21 08:12] VITALS: BP 99/57; PULSE 55; TEMP 37; O2SAT 94
[2017-09-21] MEDS: METOPROLOL TARTRATE 25 MG TAB PO SCH (09:00)
[2017-09-21] MEDS: LISINOPRIL 5 MG TAB PO SCH (09:00)
[2017-09-21] MEDS: PSYLLIUM 58.6% PWD PACK S\\F PO SCH ×2 (09:12→13:09)
[2017-09-21] MEDS: GABAPENTIN 600 MG TAB PO SCH (09:16)
[2017-09-21] MEDS: TAMSULOSIN HCL 0.4 MG CAP PO SCH (09:16)
[2017-09-21] MEDS: INSULIN ASPART 100 UNITS/ML 3 ML PEN SC SCH ×2 (09:20→13:13)
[2017-09-21] MEDS: MAGNESIUM HYDROXIDE SUSP 30 ML UDC PO PRN (10:40)
[2017-09-21] MEDS: DOCUSATE SODIUM 100 MG CAP PO SCH ×2 (11:54→16:33)
[2017-09-21] MEDS ORDERED: GABAPENTIN 300 MG CAP PO SCH (12:00)
--- NOTE | 2017-09-21 15:00 | Discharge Instructions ---
Discharge Instructions Date of Service Sep 21, 2017. Admission Reason for Admission: Gross Hematuria; Intractable Pain Discharge Discharge Diagnosis / Problem: intractable pain and gross hemature in the setting of bladder cancer Discharge Goals Goal(s): Decrease discomfort, Diagnostic testing, Therapeutic intervention Activity Recommendations Activity Limitations: resume your previous activity . Instructions / Follow-Up Instructions / Follow-Up Mr. Anna you were admitted for uncontrollable pain in your bladder and right kidney as well as blood in your urine likely from your bladder cancer. Constipation was also contributing to your pain. We changed your pain medication and constipation regimen. You were also seen by Urology, Paula Scales while here. Please follow the instructions below: Constipation - Take Colace 100mg twice a day - Take a packet/1 dose of Metamucil with each meal for added fiber to your diet - Take lactulose 30mg if you have not have a bowel movement in 2 days - You can take a dose every hour up to 3 doses until you have a bowel movement Pain - Take Percocet 10mg every 4 hours as needed for uncontrolled pain - Place a fentanyl patch every 3 days for chronic pain management Hypertension - Continue taking Lisinopril 5mg every morning Diabetees - Continue taking home metformin and Sitagliptin as prescribed Sleep apnea - Continue using your CPAP machine at night High cholesterol - Continue taking your Atorvastatin as prescribed -Follow up with Dr. Westbrook as scheduled on 09/[address] Barrera tomorrow 09/22 Current Hospital Diet Patient's current hospital diet: Diabetes Type 2 Diet Discharge Diet Recommended Diet: Regular Diet, Diabetes Type 2 Diet Pending Studies Studies pending at discharge: no Medical Emergencies . Who to Call and When: Medical Emergencies: If at any time you feel your situation is an emergency, please call 911 immediately. . Non-Emergent Contact Non-Emergency issues call your: Primary Care Provider . . "Provider Documentation" section prepared by Poppy Romero. . VTE Core Measure Inpt VTE Proph given/why not?: SCD's
[2017-09-21] MEDS ORDERED: NRN300 PO (15:02)
[2017-09-21] MEDS ORDERED: LCTL45 PO (15:02)
[2017-09-21] MEDS ORDERED: OXYC-88 PO (15:02)
[2017-09-21] MEDS ORDERED: NRN600 PO (15:02)
[2017-09-21] MEDS ORDERED: MTML PO (15:02)
[2017-09-21] MEDS ORDERED: DRGTP75 TD (15:02)
[2017-09-21] MEDS ORDERED: DOCU-94 PO (15:02)
[2017-09-21 15:36] VITALS: BP 99/57; PULSE 55; TEMP 37; O2SAT 94
[2017-09-21 15:52] VITALS: BP 114/74; PULSE 68; TEMP 36.8; O2SAT 93
--- NOTE | 2017-09-21 18:31 | Discharge Summary ---
Discharge Summary Date of Service Sep 21, 2017. Discharge Summary Admission Date: Sep 17, 2017 at 17:57 Discharge Date: Sep 21, 2017 Discharge Disposition: Home Principal Diagnosis: intractable pain and hematuria in the setting of bladder cancer Problems/Secondary Diagnoses: Constipation HTN DM2 NIDIA HLD Procedures: CHEST ONE VIEW PORTABLE HISTORY: 62 years-old Male chills hx bladder CA acute chest with history of bladder cancer COMPARISON: Chest radiograph 09/13/2017 TECHNIQUE: Portable AP view of the chest FINDINGS: Left subclavian Oelzym-d-Mdgi catheter is seen with distal tip terminating in the region of the SVC. Atherosclerosis of the aorta. Cardiac silhouette is within normal limits. Previously noted metallic density projecting over the central chest is no longer identified. There is no pneumothorax, pleural effusion, focal airspace consolidation or overt pulmonary edema. The bones of the chest appear grossly intact. IMPRESSION: No acute process. ABD/PELVIS WITHOUT FOR STONE HISTORY: 62 years-old Male hematuria severe R flank pain low abd pain acute hematuria with right-sided flank pain and lower abdominal pain. Right-sided ureteral stent in place. COMPARISON: CT abdomen and pelvis 09/07/2017. TECHNIQUE: Multiple axial CT images of the abdomen and pelvis were obtained without the use of IV contrast. A dose lowering technique was used consistent with the principals of DANIELLE. FINDINGS: Subsegmental groundglass opacities of the left lung base suggest atelectasis. No pneumatosis or pneumoperitoneum identified. Imaged inferior cardiac chambers are unremarkable with coronary arterial disease. The liver, gallbladder, pancreas and adrenal glands are within normal limits. Spleen is mildly enlarged, 15.6 cm. There are at least 8 nonobstructive renal calculi on the left, largest of which measures 3 mm. There are least 6 nonobstructing renal calculi on the right, largest of which measures 3 mm within the inferior pole. 1.6 cm low attenuating lesion of the inferior pole right kidney suggests renal cyst. There is moderate right-sided hydroureteronephrosis with associated right perinephric and periureteral inflammatory stranding which appears generally unchanged from comparison. A right-sided ureteral stent is in place which appears to be in satisfactory positioning. No calculi are seen along the course of the right ureteral stent. Hernandez catheter is noted within a partially collapsed urinary lumen. High attenuating ill-defined material anterior to the balloon suggest hemorrhage. Moderate perivesicular inflammatory stranding. Moderate atherosclerosis of the aorta. No aneurysm. No bulky adenopathy identified. There is no bowel obstruction or focal bowel wall thickening identified. Moderate colonic diverticulosis without CT evidence of acute diverticulitis. Normal appendix and terminal ileum. Soft tissues are unremarkable. The bones appear intact. IMPRESSION: 1. Unchanged moderate right-sided hydroureteronephrosis with right-sided ureteral stent in stable satisfactory position. 2. Hernandez catheter is noted within a partially collapsed urinary bladder lumen. Hemorrhagic debris is noted within the urinary bladder lumen anterior to the Hernandez catheter balloon. Additionally, there is bladder wall thickening with moderate perivesicular stranding. Correlate with urinalysis to exclude cystitis. 3. Bilateral nonobstructing renal calculi. No ureteral calculi identified. 4. Moderate colonic diverticulosis without diverticulitis. 5. Mild splenomegaly. Consultations: Urology - Paula Scales Medication Reconciliation New Medications: Fentanyl (Duragesic) 75 Mcg Tdsy 75 MCG TD Q72H, #10 Gabapentin (Gabapentin) 600 Mg Tab 600 MG PO BID, #60 TAB Gabapentin (Gabapentin) 300 Mg Cap 300 MG PO DAILY@1200, #30 CAP Oxycodone/Acetaminophen 10MG/325MG (Oxycodone/Acetaminophen 10MG/325MG) 1 Tab Tab 1 TAB PO QID PRN for Pain, #120 TAB Psyllium (Konsyl) 1 Pkt Pack 1 PKT PO TIDM for 30 Days Continued Medications: Albuterol Sulfate (Proair Respiclick) 108 Mcg/Act Aer 2 PUFFS INH UD PRN for SOB/Wheezing Atorvastatin (Lipitor) 80 Mg Tab 80 MG PO QPM Ciprofloxacin (Ciprofloxacin HCl) 500 Mg Tab 500 MG PO Q12H, #15 TAB Take one dose this evening on 09/13 then resume twice a day on 09/14 Citalopram Hydrobromide (Citalopram Hydrobromide) 10 Mg Tab 10 MG PO DAILY for 30 Days, #30 TAB 3 Refills Docusate Sodium (Colace) 100 Mg Cap 100 MG PO BID, #60 CAP (This prescription has been renewed) Glimepiride (Glimepiride) 4 Mg Tab 8 MG PO DAILY Lactulose (Lactulose) 30 Gm/45 Ml Syrp 30 GM PO DAILY PRN for Constipation, #1 BTL (This prescription has been renewed) Lisinopril (Zestril) 5 Mg Tab 5 MG PO QAM, TAB Metformin Hcl (Glucophage Er) 750 Mg Tab 750 MG PO BID Metoprolol Tartrate (Lopressor) (Lopressor) 25 Mg Tab 25 MG PO Q12, TAB Ondansetron Odt (Zofran Odt) 8 Mg Soltab 4 MG SL Q8 PRN for Nausea, TAB Oxybutynin Chloride (Ditropan) 5 Mg Tab 5 MG PO TID PRN for Bladder pain for 30 Days, #90 TAB 11 Refills Phenazopyridine HCl (Pyridium) 200 Mg Tab 200 MG PO TID PRN for Bladder pain, #6 TAB Sitagliptin (Januvia) 100 Mg Tab 100 MG PO QAM Tamsulosin Hcl (Flomax) 0.4 Mg Cap 0.4 MG PO DAILY for 30 Days, #30 CAP 5 Refills Discontinued Medications: Aspirin (Aspirin Ec) 81 Mg Tab 81 MG PO QAM Gabapentin (Neurontin) 300 Mg Cap 300 MG PO TID, CAP Hydrocodone/Acetaminophen 5MG/325MG ([place] 5MG/325MG) Tab 1-2 TABLET PO q 6 hrs PRN for Pain, #20 TAB PRN PAIN Oxycodone Ir (Roxicodone Ir) 5 Mg Tab 5-10 MG PO Q4H PRN for Severe Pain, TAB Senna (Senokot) 8.6 Mg Tab 17.2 MG PO QAM for 30 Days, #60 TAB Discharge Exam Constitutional: No fever, No chills Respiratory: No shortness of breath Cardiovascular: No chest pain Abdomen: + pain, No nausea, No vomiting, No diarrhea, No constipation General Appearance: no apparent distress Eyes: normal inspection, sclerae normal Respiratory/Chest: lungs clear, normal breath sounds Cardiovascular: regular rate, rhythm, no murmur Abdomen: normal bowel sounds, soft, + tenderness (RLQ and suprapubic TTP) Extremities: non-tender, no pedal edema Neurologic/Psychiatric: alert, oriented x 3 Skin: warm/dry Hospital Course 62 yoM with hx of invasive urothelial bladder cancer, CAD s/p [place]/stent, HTN, HLD , DM, and NIDIA who presented with worsening gross hematuria and intractable pain likely from excessive straining due to chronic constipation. Intractable Pain 2/2 Invasive Urothelial Bladder Cancer with possible invasion into rectum - better controlled - Hx of TURBT in July and exchange of R ureteral stent for worsening hydro in 09/07/17 - Abdominal CT: unchanged moderate R sided hydroureteronephrosis; ureteral stent in stable position, hemorrhagic debris anterior to Hernandez balloon within lumen of bladder, mod bladder wall thickening with mod perivascular stranding r/ ot cystitis,b/l non-obstructing renal calculi no ureteral calculi - Started and dced on Percocet 10-325 Q4H PRN for moderate pain which is better controlling pain - Received Dilaudid 1mg IV q4h PRN for severe Pain - Increased Gabapentin to 600mg BID and 300mg QAM - Continued home Flomax 0.4mg daily - Continued home Oxybutynin 5mg TID PRN - Continued home Pyridium 200mg TID PRN - Hernandez Catheter in place draining yellow urine - Urology Consult - no surgical intervention at this time - Metamucil TID with meals - Semithicone 80mg PO Q6H PRN for gas pains - Dced Miralax - Keep f/u with Dr. Vaca on 09/28/17 and oncology for next week Gross Hematuria 2/2 Bladder Cancer - resolved - UA - 3+ Hematuria >30 RBC, >30 WBC red turbid - UCx NG < 1000 colonies - H/H - stable at 11.6/24.9 - Held home Aspirin and not anticoagulated during admission Mildly elevated Cr - Creatinine 1.52 --> 1.58 - Baseline appears to be 1.2 but lab as recently as 09/15 showed Cr of 1.66 - Followed daily BMP History of Klebsiella Septicemia 2/2 Complicated UTI with possible Right Sided Pyelonephritis - Continued Ciprofloxacin 500mg BID until 09/20/16 Hypertension - Continued home Lisinopril 5mg QAM - Continued Metoprolol 25mg Q12H Constipation - resolved - Continued Lactulose 30g PRN - take if no BM in 2 days (a dose every hr up to 3 doses until has a BM) - Started on Colace 100mg BID - Instructed to take Metamucil 1 dose/packet with each meal for added fiber to diet Diabetes type 2 - Sliding Scale Insulin - goal 120-160; CF 25; Carb 1:8 - BSG AC and HS - Held home Metformin and Sitagliptin NIDIA - Continued on CPAP Hyperlipidemia - Continued home Atorvastatin 80mg QPM DVT: SCDs Code Status: Full Resuscitation Resident Physician Supervision Note: I interviewed and examined the patient. Discussed with Dr. Romero and agree with findings and plan as documented in the note. Any exceptions or clarifications are listed here: None Documented By: Jeferson Darden feeling better! feels that he'll do well at home vitals noted nad breathing unlabored no pallor or icterus constipation - base bowel regimen of colace 100mg bid & fiber; lactulose prn refractory constipation pain - base regimen of fentanyl patch + gabapentin (can continue to titrate), percocet for breakthrough otherwise as above, stable/safe for home Total Time Spent: Less than 30 minutes This includes examination of the patient, discharge planning, medication reconciliation, and communication with other providers. Discharge Instructions Please refer to the electronic Patient Visit Report (Discharge Instructions) for additional information. Additional Copies To Vasyl Westbrook D.O.
== END 2017-09-21 17:30 | disposition home or self-care (01) | DRG 948 ==
LOC: C.EDB 12:43 → EDBEDREQ 17:56 → C.MSW 17:57 → EDBEDREQ 18:01 → ENRESERV 18:15
PROVIDERS: ADMIT Student in an Organized Health Care Education/Training Program; ATTEND Family Medicine
DX: G89.3 Neoplasm related pain (acute) (chronic) (principal); N17.9 Acute kidney failure, unspecified; C67.9 Malignant neoplasm of bladder, unspecified; K59.00 Constipation, unspecified; R31.0 Gross hematuria; E11.9 Type 2 diabetes mellitus without complications; E78.5 Hyperlipidemia, unspecified; I11.9 Hypertensive heart disease without heart failure; I25.10 Atherosclerotic heart disease of native coronary artery without angina pectoris; G47.33 Obstructive sleep apnea (adult) (pediatric); Z79.899 Other long term (current) drug therapy; Z79.82 Long term (current) use of aspirin; Z79.84 Long term (current) use of oral hypoglycemic drugs; Z87.440 Personal history of urinary (tract) infections; Z87.891 Personal history of nicotine dependence; Z83.3 Family history of diabetes mellitus

== ENCOUNTER 2017-10-12 10:22 | Emergency (ER) | payer OTHER ==
[~2017-10-12] VITALS: Ht 182.9 cm; Wt 98.0 kg
[~2017-10-12 10:22] MED LIST changes: -CPR500 PO; +DRGTP75 TD; -GABA-113 PO; -HYDR-5688 PO; -LISI-729 PO; +LSN25 PO; +MTML PO; +NRN300 PO; +NRN600 PO; +OXYC-88 PO; -OXYC1TAB3 PO; -SENN-61 PO
[2017-10-12 10:55] VITALS: Ht 182.9 cm; Wt 98.0 kg
[2017-10-12 11:58] LABS: HEMATOCRIT 31.6 % (42-52); HEMOGLOBIN 10.8 g/dL (14.0-18.0); MEAN CELL VOLUME 87.1 fL (80-100); MEAN CORPUSCULAR HEMOGLOBIN 29.8 pg (25-34); MEAN CORPUSCULAR HGB CONC 34.2 g/dl (32-36); RED CELL DISTRIBUTION WIDTH CV 13.5 % (11.5-14.5); WHITE BLOOD COUNT 46.98 K/uL (4.8-10.8)
[2017-10-12 12:06] LABS: ALBUMIN 3.2 gm/dl (3.4-5.0); CALCIUM 8.6 mg/dl (8.5-10.1); CREATININE 1.84 mg/dl (0.60-1.40); POTASSIUM 3.6 mmol/L (3.5-5.1)
[2017-10-12] MEDS ORDERED: CEFTRIAXONE SOD INJ 1 GM ADDVIAL IV STA (12:08)
[2017-10-12] MEDS ORDERED: SODIUM CHLORIDE 0.9% 1000ML 1,000 ML IV STA ×3 (12:08→12:10)
[2017-10-12] MEDS ORDERED: HYDROmorphone INJ 1 MG/ML SYR IV STA ×5 (12:08→16:53)
[2017-10-12] MEDS ORDERED: VANCOMYCIN 1GM/270ML NSS IV STA (12:08)
[2017-10-12] MEDS ORDERED: ONDANSETRON INJ 2 MG/ML 2 ML VIAL IV STA (12:08)
[2017-10-12 12:09] LABS: TOTAL PROTEIN 6.7 gm/dl (6.4-8.2)
[2017-10-12] MEDS ORDERED: ONDANSETRON INJ 2 MG/ML 2 ML VIAL ONE (12:09)
[2017-10-12] MEDS ORDERED: HYDROmorphone INJ 1 MG/ML SYR ONE (12:09)
--- NOTE | 2017-10-12 12:10 | EMERGENCY ROOM VISIT NOTE ---
History Report prepared by Francisco: Eben Wolfe Under the Supervision of: Dr. Harinder Kebede M.D. First contact with patient: 11:09 Chief Complaint: ABDOMINAL PAIN Stated Complaint: COLD,HOT FLASHES,ABD PAIN, BLADDER CA PT Nursing Triage Summary: pt had 2nd chemo rx yesterday. last night became achey with n/v. pt has indwelling solano for invasive bladder ca History of Present Illness The patient is a 62 year old male who presents to the Emergency Room with complaints of severe and diffuse abdominal pains that began last night. The patient states that he is currently diagnosed with Bladder Cancer and just received his second round of chemotherapy 3 days ago. Last night he also developed nausea and vomiting along with his abdominal pain that has continued to worsen since onset. Source of History: patient Onset: Last night Position: abdomen (Diffuse) Symptom Intensity: severe Timing: worsening Associated Symptoms: + nausea, + vomiting Review of Systems See HPI for pertinent positives & negatives. A total of 10 systems reviewed and were otherwise negative. Past Medical & Surgical Medical Problems: (1) Bladder pain (2) Chronic back pain (3) Diabetes mellitus (4) Dyslipidemia (5) Gross hematuria (6) Gross hematuria (7) Intractable pain (8) Postop check (9) UTI (urinary tract infection) Family History Cancer Diabetes mellitus Social History Smoking Status: Never Smoker Drug Use: none Marital Status: Housing Status: lives with significant other Occupation Status: retired Current/Historical Medications Scheduled Aspirin (Aspirin Ec), 81 MG PO QAM Atorvastatin (Lipitor), 80 MG PO QPM Citalopram Hydrobromide (Citalopram Hydrobromide), 10 MG PO QAM Docusate Sodium (Colace), 100 MG PO BID Fentanyl (Duragesic), 75 MCG TD Q72H Gabapentin (Gabapentin), 600 MG PO BID Gabapentin (Gabapentin), 300 MG PO DAILY@1200 Glimepiride (Glimepiride), 8 MG PO QAM Lisinopril (Lisinopril), 2.5 MG PO QAM Metformin Hcl (Glucophage Er), 750 MG PO BID Metoprolol Tartrate (Lopressor) (Lopressor), 25 MG PO BID Psyllium (Konsyl), 1 PKT PO TIDM Sitagliptin (Januvia), 100 MG PO QAM Tamsulosin Hcl (Flomax), 0.4 MG PO QPM Scheduled PRN Albuterol Sulfate (Proair Respiclick), 2 PUFFS INH UD PRN for SOB/Wheezing Lactulose (Lactulose), 30 GM PO DAILY PRN for Constipation Ondansetron Odt (Zofran Odt), 4 MG SL Q8 PRN for Nausea Oxybutynin Chloride (Ditropan), 5 MG PO TID PRN for Bladder pain Oxycodone/Acetaminophen 10MG/325MG (Oxycodone/Acetaminophen 10MG/325MG), 1 TAB PO QID PRN for Pain Phenazopyridine HCl (Pyridium), 200 MG PO TID PRN for Bladder pain Allergies Coded Allergies: No Known Allergies (Unverified , 10/12/17) Physical Exam Vital Signs Date Time Temp Pulse Resp B/P (MAP) Pulse Ox O2 Delivery O2 Flow Rate FiO2 10/13/17 08:14 55 17 147/82 93 Room Air 10/13/17 06:36 37.3 60 18 124/74 97 Room Air 10/13/17 05:35 85 20 131/60 99 Room Air 10/13/17 04:47 60 10/13/17 03:15 78 18 132/74 98 Nasal Cannula 2.0 10/13/17 03:00 61 18 132/77 99 Nasal Cannula 2.0 10/13/17 02:30 61 18 100/58 95 Nasal Cannula 2.0 10/13/17 02:00 57 18 134/79 97 Nasal Cannula 2.0 10/13/17 01:30 60 18 133/82 98 Nasal Cannula 2.0 10/13/17 01:01 157/85 10/13/17 00:54 65 18 100 10/13/17 00:39 62 26 99 10/13/17 00:31 117/70 10/13/17 00:24 57 98 10/13/17 00:19 55 12 98 Nasal Cannula 2.0 10/13/17 00:04 55 12 97 10/13/17 00:01 127/66 10/12/17 23:49 59 13 98 10/12/17 23:34 65 17 98 10/12/17 23:31 129/70 10/12/17 23:19 56 12 98 10/12/17 23:14 57 97 Nasal Cannula 2.0 2/15/18 23:10 58 2/15/18 23:01 128/66 /15/18 22:59 57 14 97 /1518 22:44 69 26 97 /15/18 22:31 139/82 /15/18 22:29 65 16 99 /15/18 22:14 58 98 /15/18 22:01 134/64 15/18 21:59 60 13 98 15/18 21:44 59 13 98 /15/18 21:31 119/64 15/18 21:29 61 16 99 /15/18 21:14 64 98 /15/ 21:09 65 98 Nasal Cannula 2.0 10/12/17 21:01 146/68 89 Room Air 10/12/17 21:00 Nasal Cannula 2.0 10/12/17 20:54 66 16 94 15/18 20:39 66 16 93 18 20:34 148/80 10/12/17 20:05 64 13 90 18 20:01 127/72 18 19:50 63 95 15/18 19:35 67 15 92 15/18 19:30 66 14 92 15/18 19:21 141/85 10/12/17 19:15 64 12 94 15/18 19:04 153/88 1518 18:45 63 15 96 15/18 18:06 69 12 91 15/18 18:01 128/74 1518 17:36 65 13 92 15/18 17:06 65 19 95 15/18 17:03 66 19 133/80 95 215/18 17:01 133/80 15/18 16:36 67 14 95 15/18 16:06 70 94 1518 16:01 114/59 94 Room Air 10/12/17 15:56 74 12 92 15/18 15:26 77 19 94 15/18 15:01 138/86 1518 14:56 78 0 94 15 14:51 79 4 94 10/12/17 14:36 78 8 97 18 14:36 78 8 97 15 14:21 63 19 98 10/12/17 14:06 61 15 96 10/12/17 14:06 61 15 96 10/12/17 14:01 144/81 10/12/17 13:52 67 15 97 10/12/17 13:22 59 17 98 10/12/17 13:16 94 Room Air 10/12/17 13:03 62 20 149/92 98 Room Air 10/12/17 13:01 149/92 10/12/17 12:57 158/93 10/12/17 12:22 66 22 10/12/17 12:12 65 10/12/17 12:01 139/80 10/12/17 11:52 70 13 84 10/12/17 11:22 61 18 96 10/12/17 11:14 134/78 10/12/17 10:55 37.4 69 20 136/83 98 Room Air Physical Exam GENERAL: Patient is a healthy-appearing well-nourished male HEAD: Normocephalic atraumatic EYES: Ocular movements intact pupils equal and react to light OROPHARYNX mucous membranes are moist no exudates present no erythema or edema present NECK: Supple no nuchal rigidity CHEST: Good equal expansion LUNGS: Clear and equal to auscultation CARDIAC: Normal S1 and S2 ABDOMEN: Soft and diffusely tender abdomen no guarding BACK: No CVA tenderness EXTREMITIES: No pain upon palpation normal muscle strength in all groups no clubbing cyanosis or edema NEURO: Patient is following commands and answering questions appropriately. Alert and oriented x3 Cranial Nerves 2-12 grossly intact Medical Decision & Procedures ER Provider Diagnostic Interpretation: Radiology results as stated below per my review and radiologist interpretation: ABD/PELVIS IV CONTRAST ONLY CLINICAL HISTORY: 62 years-old Male presenting with Pt c/o abd pain, history of urothelial carcinoma. TECHNIQUE: Multidetector CT of the abdomen and pelvis was performed after the administration of intravenous contrast. IV contrast: 64 mL of Optiray 320. A dose lowering technique was used consistent with the principles of ALARA (as low as reasonably achievable). COMPARISON: 09/17/2017. CT DOSE (mGy.cm): The estimated cumulative dose is 702.85 mGy.cm. FINDINGS: Inventory Clerk topogram: Right ureteral stent and Solano catheter in place. Lung bases: Dependent reticulation and solid consolidation at the posterior basal left lower lobe. Mild left lower lobe bronchial wall thickening and minimal bronchial debris and bronchiectasis. Normal heart size. Coronary artery calcification. No pericardial or pleural effusion. Liver: Normal morphology. No liver lesion. Patent hepatic vasculature. Biliary: No intrahepatic or extrahepatic biliary ductal dilatation. Normal gallbladder. Pancreas: Normal. Spleen: Normal. Adrenal glands: Normal. Kidneys and ureters: Persistent right perinephric fat stranding. A right ureteral stent is in place. Relative hypoperfusion/delayed perfusion of the right kidney noted to the left. Nonobstructing 2 mm calculus at the upper pole the right kidney. Several hypodensities in the right kidney indeterminate but likely simple cysts. The right urinary collecting system and right ureter remain dilated. Urothelial thickening and periureteral fat stranding. These findings are unchanged from most recent CT. Multiple nonobstructing punctate left renal calculi. Mild left pelviectasis and mild left hydroureter. Bladder: The bladder is decompressed with a Solano catheter. Focus of gas related to catheterization. Extensive bladder wall thickening and perivesicular fat stranding as on prior exam. Previously noted hyperdensity is no longer present though the lumen is poorly evaluated given underdistention. Pelvic organs: Prostate and seminal vesicles normal. Bowel: Diverticulosis of the descending and sigmoid colon. Scattered diverticula noted elsewhere in the colon. The appendix is normal. No bowel obstruction. Peritoneal cavity: No free fluid or intraperitoneal gas. Lymph nodes: No enlarged lymph nodes in the abdomen or pelvis. Vasculature: Atherosclerosis of the normal caliber abdominal aorta. IVC patent. Abdominal wall: Normal. Musculoskeletal: Degenerative changes of the spine. IMPRESSION: 1. Right ureteral stent and Solano catheter is in place. The right urinary collecting system remains dilated despite the presence of the right ureteral stent. Mild dilatation of the left renal collecting system and left ureter similar to prior exam. Altered perfusion of the right kidney consistent with right hydroureteronephrosis. Obstruction of both ureters consistent with obstruction at the bladder trigone likely secondary to neoplasm. 2. Extensive bladder wall thickening and perivesicular inflammatory change. Underlying cystitis and/or neoplasm is difficult to exclude. Correlate with urinalysis to exclude acute infection. Alternatively, findings could be seen in the setting of post radiation cystitis or due to neoplasm. 3. Nonobstructing bilateral nephrolithiasis. 4. Diverticulosis. 5. Findings suggest chronic aspiration in the left lower lobe Electronically signed by: Benton Recio M.D. 10/12/2017 1:06 PM Dictated Date/Time: 10/12/2017 12:56 PM CHEST ONE VIEW PORTABLE HISTORY: 62 years-old Male Sepsis acute sepsis with history of bladder cancer COMPARISON: Chest radiograph 09/17/2017 TECHNIQUE: Portable AP view of the chest FINDINGS: Cardiac silhouette is upper limits of normal in size. Atherosclerosis of the aorta. Left subclavian [id number]-j-[id number] catheter appears unchanged with distal tip in the region of the mid SVC. There is no pneumothorax or pleural effusion. There is mild left hemidiaphragmatic elevation with subsegmental left basilar opacities. The right lung is clear. Bones of the chest appear grossly intact. IMPRESSION: Subsegmental left basilar opacities suggest atelectasis with mild left hemidiaphragmatic elevation. The above report was generated using voice recognition software. It may contain grammatical, syntax or spelling errors. Electronically signed by: Sushil Diaz M.D. 10/12/2017 12:49 PM Dictated Date/Time: 10/12/2017 12:47 PM Laboratory Results 10/12/17 11:11 Red Blood Count 3.63, Mean Corpuscular Volume 87.1, Mean Corpuscular Hemoglobin 29.8, Mean Corpuscular Hemoglobin Concent 34.2, Mean Platelet Volume 9.4 10/12/17 11:11 Test 10/12/17 11:11 10/12/17 11:25 10/12/17 12:24 10/12/17 12:44 White Blood Count 46.98 K/uL (4.8-10.8) Red Blood Count 3.63 M/uL (4.7-6.1) Hemoglobin 10.8 g/dL (14.0-18.0) Hematocrit 31.6 % (42-52) Mean Corpuscular Volume 87.1 fL (80-100) Mean Corpuscular Hemoglobin 29.8 pg (25-34) Mean Corpuscular Hemoglobin Concent 34.2 g/dl (32-36) Platelet Count 148 K/uL (130-400) Mean Platelet Volume 9.4 fL (7.4-10.4) RDW Standard Deviation 43.0 fL (36.4-46.3) RDW Coefficient of Variation 13.5 % (11.5-14.5) Neutrophils % (Manual) 97.4 % Lymphocytes % (Manual) 1.7 % Monocytes % (Manual) 0.9 % Neutrophils # (Manual) 45.76 K/uL (1.4-6.5) Total Absolute Neutrophils 45.76 K/uL (1.4-6.5) Lymphocytes # (Manual) 0.80 K/uL (1.2-3.4) Total Absolute Lymphocytes 0.80 K/uL (1.2-3.4) Monocytes # (Manual) 0.42 K/uL (0.11-0.59) Toxic Granulation 2+ Dohle Bodies 1+ Large Platelets 2+ Prothrombin Time 11.3 SECONDS (9.0-12.0) Prothromb Time International Ratio 1.1 (0.9-1.1) Activated Partial Thromboplast Time 26.8 SECONDS (21.0-31.0) Partial Thromboplastin Ratio 1.0 Anion Gap 11.0 mmol/L (3-11) Est Creatinine Clear Calc Drug Dose 49.9 ml/min Estimated GFR () 44.2 Estimated GFR (Non- 38.2 BUN/Creatinine Ratio 13.4 (10-20) Calcium Level 8.6 mg/dl (8.5-10.1) Total Bilirubin 0.5 mg/dl (0.2-1) Aspartate Amino Transf (AST/SGOT) 16 U/L (15-37) Alanine Aminotransferase (ALT/SGPT) 23 U/L (12-78) Alkaline Phosphatase 121 U/L (45-117) Total Creatine Kinase 31 U/L (39-308) Creatine Kinase MB 0.5 ng/ml (0.5-3.6) Creatine Kinase MB Ratio 1.6 (0-3.0) Troponin I < 0.015 ng/ml (0-0.045) Total Protein 6.7 gm/dl (6.4-8.2) Albumin 3.2 gm/dl (3.4-5.0) Globulin 3.5 gm/dl (2.5-4.0) Albumin/Globulin Ratio 0.9 (0.9-2) Lipase 50 U/L (73-393) Procalcitonin 0.69 ng/ml (0-0.5) Urine Color YELLOW Urine Appearance CLEAR (CLEAR) Urine pH >= 9.0 (4.5-7.5) Urine Specific Sunset 1.012 (1.000-1.030) Urine Protein NEG (NEG) Urine Glucose (UA) NEG (NEG) Urine Ketones TRACE (NEG) Urine Occult Blood TRACE (NEG) Urine Nitrite POS (NEG) Urine Bilirubin NEG (NEG) Urine Urobilinogen NEG (NEG) Urine Leukocyte Esterase SMALL (NEG) Urine WBC (Auto) >30 /hpf (0-5) Urine RBC (Auto) 0-4 /hpf (0-4) Urine Hyaline Casts (Auto) 1-5 /lpf (0-5) Urine Epithelial Cells (Auto) 0-5 /lpf (0-5) Urine Bacteria (Auto) NEG (NEG) Urine Yeast (Auto) BUD W/ HYPHAE (NONE PRSENT) Bedside Lactic Acid Venous 1.08 mmol/L (0.90-1.70) Influenza Type A Antigen Neg for Influ A (NEG) Influenza Type B Antigen Neg for Influ B (NEG) Test 10/13/17 07:24 Bedside Glucose 122 mg/dl (70-99) Labs reviewed by ED physician. Medications Administered Medications (Trade) Dose Ordered Sig/Young Route Start Time Stop Time Status Last Admin Dose Admin Ceftriaxone Sodium (Rocephin Inj) 1 gm NOW STAT IV 10/12/17 12:08 10/12/17 12:10 DC 10/12/17 13:07 1 GM Sodium Chloride 1,000 ml @ 999 mls/hr Q1H1M STAT IV 10/12/17 12:08 10/12/17 13:08 DC 10/12/17 12:08 999 MLS/HR Vancomycin HCl (Vancomycin 1gm/ 270ml Nss) 1 gm NOW STAT IV 10/12/17 12:08 10/12/17 12:10 DC 10/12/17 13:46 1 GM Hydromorphone HCl (Dilaudid Inj) 1 mg STK-MED ONCE .ROUTE 10/12/17 12:09 10/12/17 12:10 DC 10/12/17 12:09 1 MG Ondansetron HCl (Zofran Inj) 4 mg STK-MED ONCE .ROUTE 10/12/17 12:09 10/12/17 12:10 DC 10/12/17 12:09 4 MG Sodium Chloride 1,000 ml @ 999 mls/hr Q1H1M STAT IV 10/12/17 12:10 10/12/17 13:10 DC 10/12/17 12:10 999 MLS/HR Sodium Chloride 1,000 ml @ 999 mls/hr Q1H1M STAT IV 10/12/17 12:10 10/12/17 13:10 DC 10/12/17 12:10 999 MLS/HR Hydromorphone HCl (Dilaudid Inj) 1 mg NOW STAT IV 10/12/17 12:28 10/12/17 12:29 DC 10/12/17 12:28 1 MG Hydromorphone HCl (Dilaudid Inj) 1 mg NOW STAT IV 10/12/17 12:58 10/12/17 13:00 DC 10/12/17 13:07 1 MG Caspofungin 70 mg/ Sodium Chloride 260 ml @ 260 mls/hr ONE ONCE IV 10/12/17 14:00 10/12/17 14:59 DC 10/12/17 14:06 260 MLS/HR Acetaminophen 100 ml @ 400 mls/hr NOW STAT IV 10/12/17 14:05 10/12/17 14:19 DC 10/12/17 14:20 400 MLS/HR Hydromorphone HCl (Dilaudid Inj) 1 mg NOW STAT IV 10/12/17 14:09 10/12/17 14:11 DC 10/12/17 14:20 1 MG Metoclopramide HCl (Reglan Inj) 10 mg NOW STAT IV. 10/12/17 14:09 10/12/17 14:11 DC 10/12/17 14:20 10 MG Fentanyl (Duragesic Patch) 50 mcg NOW STAT TD 10/12/17 14:15 10/12/17 14:16 DC 10/12/17 14:46 50 MCG Hydromorphone HCl (Dilaudid Inj) 1 mg NOW STAT IV 10/12/17 16:53 10/12/17 16:54 DC 10/12/17 17:03 1 MG Hydromorphone HCl (Dilaudid Inj) 1 mg Q1HWA PRN IV 10/12/17 20:45 10/13/17 10:23 DC 10/13/17 07:46 1 MG Vancomycin HCl (Vancomycin 1gm/ 270ml Nss) 1 gm NOW STAT IV 10/13/17 01:20 10/13/17 01:21 DC 10/13/17 01:51 1 GM Ondansetron HCl (Zofran Inj) 4 mg NOW STAT IV 10/13/17 01:44 10/13/17 01:45 DC 10/13/17 01:48 4 MG Ondansetron HCl (Zofran Inj) 4 mg STK-MED ONCE .ROUTE 10/13/17 07:50 10/13/17 07:51 DC 10/13/17 07:50 4 MG ED Course 1206: Past medical records reviewed. The patient was evaluated in room C10. A complete history and physical examination was performed. 1208: Ordered Zofran 4 mg IV, Vancomycin HCl 1 gm IV, Sodium Chloride 1000 mL @ 999 mL/hr IV, Rocephin 1 gm IV, Dilaudid 1 mg IV. 1210: Ordered Sodium Chloride 1000 mL @ 999 mL/hr IV, Sodium Chloride 1000 mL @ 999 mL/hr IV. 1228: Ordered Dilaudid 1 mg IV. 1258: Ordered Dilaudid 1 mg IV. 1324: I discussed the case with Dr. Nathan [facility]. He asked that I add an Antifungal medication to the patient's treatment. He will come to evaluate the patient and discuss transfer options with the family. 1353: Dr. Evans has evaluated the patient at this time. They would like to go to [facility] for a Nephrostomy Tube. 1359: The patient is being prepared for transfer to [facility]. 1400: Ordered Caspofungin 70 mg/Sodium Chloride 260 mL @ 260 mL/hr IV. 1408: I discussed the case with Dr. Dayana [facility]. She will accept the patient for transfer. Medical Decision Differential diagnosis: Etiologies such as appendicitis, diverticulitis, PUD, biliary pathology, UTI, pancreatitis, obstruction, mesenteric ischemia, aortic pathology, infections, inflammatory bowel disease, renal colic, as well as others were entertained. This is a 62-year-old male who presents emergency department complaining of right-sided flank pain. Patient has a history of bladder cancer and has stents in place. Because the stents have been revised already I did have urology come and see the patient. They believe the patient will be better served with a percutaneous nephrostomy. She was started on Rocephin and vancomycin. Patient has a large white blood cell count that urology believes is consistent with a fungal infection there for fungal cultures were taken. I discussed the case with pharmacology who felt that the patient should be started on capsaicin. I also discussed the case with [facility] who expressed readily accepted the patient for transfer. As the patient was waiting for a bed patient was signed out to Dr. Chong at change of shift. Received patient in signout from Dr. Shah. Patient has been waiting in the emergency department overnight for a bed. At this point I did call [facility] and threatened to send the patient to [facility]. A bed then opened up and the patient was transferred via ambulance. Medication Reconcilliation Current Medication List: was personally reviewed by me Blood Pressure Screening Patient's blood pressure: Elevated blood pressure Blood pressure disposition: Referred to PCP Consults Time Called: 1318 Consulting Physician: Dr. Nathan Collins Returned Call: 1324 I discussed the case with Dr. Nathan Collins. He asked that I add an Antifungal medication to the patient's treatment. He will come to evaluate the patient and discuss transfer options with the family. Additional Consults: Time Called: 1400 Consulted Physician: Dr. Dayana Juárez Returned Call: 1408 Additional Comments: I discussed the case with Dr. Dayana Hammonds. She will accept the patient for transfer. Impression Primary Impression: Fungal infection Additional Impression: uretheral stent blockage Critical Care I have personally spent greater than 90 minutes of critical care time in the direct management of this patient. This includes bedside care, interpretation of diagnostic studies, and testing, discussion with consultants, patient, and family members, and other required patient management activities. This 90 minutes is in excess of all separately billable procedures. Scribe Attestation The scribe's documentation has been prepared under my direction and personally reviewed by me in its entirety. I confirm that the note above accurately reflects all work, treatment, procedures, and medical decision making performed by me. Departure Information Dispostion Transfer Acute Care Facility ([facility]) Referrals Vasyl Westbrook D.O. (PCP) Patient Instructions [facility] Problem Qualifiers
[2017-10-12 12:11] LABS: MEAN PLATELET VOLUME 9.4 fL (7.4-10.4); PLATELET COUNT 148 K/uL (130-400)
[2017-10-12] MEDS ORDERED: OPTIRAY 320 IV PRN (12:15)
--- NOTE | 2017-10-12 12:50 | DIAGNOSTIC IMAGING REPORT ---
CHEST ONE VIEW PORTABLE HISTORY: 62 years-old Male Sepsis acute sepsis with history of bladder cancer COMPARISON: Chest radiograph 09/17/2017 TECHNIQUE: Portable AP view of the chest FINDINGS: Cardiac silhouette is upper limits of normal in size. Atherosclerosis of the aorta. Left subclavian [id number] catheter appears unchanged with distal tip in the region of the mid SVC. There is no pneumothorax or pleural effusion. There is mild left hemidiaphragmatic elevation with subsegmental left basilar opacities. The right lung is clear. Bones of the chest appear grossly intact. IMPRESSION: Subsegmental left basilar opacities suggest atelectasis with mild left hemidiaphragmatic elevation. The above report was generated using voice recognition software. It may contain grammatical, syntax or spelling errors. Electronically signed by: Sushil Diaz M.D. 10/12/2017 12:49 PM Dictated Date/Time: 10/12/2017 12:47 PM
[2017-10-12 12:51] LABS: INR 1.1 (0.9-1.1); PTT PATIENT 26.8 SECONDS (21.0-31.0)
[2017-10-12 13:00] LABS: CKMB 0.5 ng/ml (0.5-3.6)
--- NOTE | 2017-10-12 13:07 | DIAGNOSTIC IMAGING REPORT ---
ABD/PELVIS IV CONTRAST ONLY CLINICAL HISTORY: 62 years-old Male presenting with Pt c/o abd pain, history of urothelial carcinoma. TECHNIQUE: Multidetector CT of the abdomen and pelvis was performed after the administration of intravenous contrast. IV contrast: 64 mL of Optiray 320. A dose lowering technique was used consistent with the principles of ALARA (as low as reasonably achievable). COMPARISON: 09/17/2017. CT DOSE (mGy.cm): The estimated cumulative dose is 702.85 mGy.cm. FINDINGS: Physicist Cryogenics topogram: Right ureteral stent and Hernandez catheter in place. Lung bases: Dependent reticulation and solid consolidation at the posterior basal left lower lobe. Mild left lower lobe bronchial wall thickening and minimal bronchial debris and bronchiectasis. Normal heart size. Coronary artery calcification. No pericardial or pleural effusion. Liver: Normal morphology. No liver lesion. Patent hepatic vasculature. Biliary: No intrahepatic or extrahepatic biliary ductal dilatation. Normal gallbladder. Pancreas: Normal. Spleen: Normal. Adrenal glands: Normal. Kidneys and ureters: Persistent right perinephric fat stranding. A right ureteral stent is in place. Relative hypoperfusion/delayed perfusion of the right kidney noted to the left. Nonobstructing 2 mm calculus at the upper pole the right kidney. Several hypodensities in the right kidney indeterminate but likely simple cysts. The right urinary collecting system and right ureter remain dilated. Urothelial thickening and periureteral fat stranding. These findings are unchanged from most recent CT. Multiple nonobstructing punctate left renal calculi. Mild left pelviectasis and mild left hydroureter. Bladder: The bladder is decompressed with a Hernandez catheter. Focus of gas related to catheterization. Extensive bladder wall thickening and perivesicular fat stranding as on prior exam. Previously noted hyperdensity is no longer present though the lumen is poorly evaluated given underdistention. Pelvic organs: Prostate and seminal vesicles normal. Bowel: Diverticulosis of the descending and sigmoid colon. Scattered diverticula noted elsewhere in the colon. The appendix is normal. No bowel obstruction. Peritoneal cavity: No free fluid or intraperitoneal gas. Lymph nodes: No enlarged lymph nodes in the abdomen or pelvis. Vasculature: Atherosclerosis of the normal caliber abdominal aorta. IVC patent. Abdominal wall: Normal. Musculoskeletal: Degenerative changes of the spine. IMPRESSION: 1. Right ureteral stent and Hernandez catheter is in place. The right urinary collecting system remains dilated despite the presence of the right ureteral stent. Mild dilatation of the left renal collecting system and left ureter similar to prior exam. Altered perfusion of the right kidney consistent with right hydroureteronephrosis. Obstruction of both ureters consistent with obstruction at the bladder trigone likely secondary to neoplasm. 2. Extensive bladder wall thickening and perivesicular inflammatory change. Underlying cystitis and/or neoplasm is difficult to exclude. Correlate with urinalysis to exclude acute infection. Alternatively, findings could be seen in the setting of post radiation cystitis or due to neoplasm. 3. Nonobstructing bilateral nephrolithiasis. 4. Diverticulosis. 5. Findings suggest chronic aspiration in the left lower lobe. Electronically signed by: Benton Recio M.D. 10/12/2017 1:06 PM Dictated Date/Time: 10/12/2017 12:56 PM
[2017-10-12 13:16] VITALS: O2SAT 94
[2017-10-12 13:40] LABS: INFLUENZA B ANTIGEN Neg for Influ B (NEG)
[2017-10-12] MEDS ORDERED: CASPOFUNGIN INJ 70 MG in SODIUM CHLORIDE 0.9% 250ML 250 ML IV ONE (14:00)
[2017-10-12] MEDS ORDERED: ACETAMINOPHEN IV 100 ML IV STA (14:05)
[2017-10-12] MEDS ORDERED: METOCLOPRAMIDE HCL INJ 5 MG/ML 2 ML VIAL IV. STA (14:09)
[2017-10-12] MEDS ORDERED: FENTANYL 50 MCG/HR TDSY TD STA (14:15)
--- NOTE | 2017-10-12 14:18 | Urology Consultation ---
History General Date of Service: Oct 12, 2017. Chief Complaint: Right Hydronephrosis, Sepsis Primary Care Physician: Vasyl Westbrook D.O. Pt seen a urologist before?: Yes History of Present Illness Presented with malaise, n/v, fever, chills, severe elevated white count. Severe renal colic. CT in ER shows obstruction of right kidney with stent in place. Very well known to Urology Severe. 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 Last stent change end of July. Currently on MVAC chemo regimen. Has port in place for chemo. Had presented septic from obstruction last time and required exchange. Cystoscopy in July showed no obstruction at UO. Obstruction appears to be at distal ureter possibly due to tumor vs scarring with external compression. Currently ill feeling, but vitals currently stable. Significant pain. Has port in for chemotherapy as well as solano catheter and right stent large caliber stent Laboratory Labs were reviewed and are within normal limits unless listed below. Labs are available in the chart and at [facility] Problem List Medical Problems: (1) Abdominal pain Status: Acute (2) Bladder neoplasm Status: Acute (3) Constipation Status: Acute (4) Intractable abdominal pain Status: Acute (5) UTI (urinary tract infection) Status: Acute Past History arrhythmia, cancer, coronary artery disease, urinary tract infection Past Surgical History: ureteral stent, other Family History Cancer Diabetes mellitus Social History Hx Tobacco Use In Past Year?: No (smoked 1 PPD for 30 years plus) Smoking: non-smoker Drug use: none Marital status: Occupation status: retired History of MDRO No Allergies Coded Allergies: No Known Allergies (Unverified , 10/12/17) Medications Home Medications: Home Meds and Scripts Medications Dose Route/Sig Max Daily Dose Days Date Category Aspirin Ec (Aspirin) 81 Mg Tab 81 Mg PO QAM 10/05/17 Reported Lisinopril 2.5 Mg Tab 2.5 Mg PO QAM 10/05/17 Reported Konsyl (Psyllium) 1 Pkt Pack 1 Pkt PO TIDM 30 09/21/17 Rx Oxycodone/Acetaminophen 10MG/325MG 1 Tab Tab 1 Tab PO QID PRN 09/21/17 Rx Gabapentin 300 Mg Cap 300 Mg PO DAILY@1200 09/21/17 Rx Gabapentin 600 Mg Tab 600 Mg PO BID 09/21/17 Rx Duragesic (Fentanyl) 75 Mcg Tdsy 75 Mcg TD Q72H 09/21/17 Rx Lactulose 30 Gm/45 Ml Syrp 30 Gm PO DAILY PRN 09/21/17 Rx Colace (Docusate Sodium) 100 Mg Cap 100 Mg PO BID 09/21/17 Rx Flomax (Tamsulosin Hcl) 0.4 Mg Cap 0.4 Mg PO QPM 08/31/17 Reported Citalopram Hydrobromide 10 Mg Tab 10 Mg PO QAM 08/31/17 Reported Ditropan (Oxybutynin Chloride) 5 Mg Tab 5 Mg PO TID PRN 08/31/17 Reported Pyridium (Phenazopyridine HCl) 200 Mg Tab 200 Mg PO TID PRN 08/31/17 Reported Zofran Odt (Ondansetron HCl) 8 Mg Soltab 4 Mg SL Q8 PRN 08/31/17 Reported Lipitor (Atorvastatin Calcium) 80 Mg Tab 80 Mg PO QPM 08/22/17 Reported Lopressor (Metoprolol Tartrate) 25 Mg Tab 25 Mg PO BID 08/22/17 Reported Glimepiride 4 Mg Tab 8 Mg PO QAM 08/22/17 Reported Proair Respiclick (Albuterol Sulfate) 108 Mcg/Act Aer 2 Puffs INH UD PRN 08/22/17 Reported Januvia (Sitagliptin) 100 Mg Tab 100 Mg PO QAM 08/07/17 Reported Glucophage Er (Metformin Hcl) 750 Mg Tab 750 Mg PO BID 12/13/15 Reported Inpatient Medications: Current Inpatient Medications Medications (Trade) Dose Ordered Sig/Young Route Start Time Stop Time Status Last Admin Dose Admin Ioversol (Optiray 320) 70 ml UD PRN IV 10/12/17 12:15 10/16/17 12:14 Caspofungin 70 mg/ Sodium Chloride 260 ml @ 260 mls/hr ONE ONCE IV 10/12/17 14:00 10/12/17 14:59 Review of Systems Review of Systems All Other Systems: Reviewed and Negative Additional Comments: See HPI for pertinent positives and negatives. All systems reviewed. Physical Exam Vital Signs: Vital Signs Past 12 Hours Date Time Temp Pulse Resp B/P (MAP) Pulse Ox O2 Delivery O2 Flow Rate FiO2 10/12/17 13:16 94 Room Air 10/12/17 13:03 62 20 149/92 98 Room Air 10/12/17 12:12 65 10/12/17 10:55 37.4 69 20 136/83 98 Room Air Physical Exam: General Appearance: WD/WN, no apparent distress, + pertinent finding (Weight loss. weakened. 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 Sepsis 2. Positive UA with High pH, possible funguria 3. Right obstructive uropathy 4. cT3 UCC currently in course of MVAC 5. Deconditioned Saw and evaluated patient and independently reviewed imaging. Discussed options at length. Obstruction of ureter with sepsis. Major concern for possible development of blood infection. Patient has had two major episodes with stent failure. Concern that stent exchange at this time may only temporarily bypass blockage. Patient is mid course with chemotherapy for UCC. Discussed stent exchange urgently vs urgent nephrostomy tube exchange. Patient experiencing considerable renal colic and has severely elevated white count. Patient elected to pursue nephrostomy tube placement. Patient will require transfer to facility with IR capabilities for nephrostomy tube placement on right. Will likley also require solano and stent change. Concern for possible funguria which would need exchange of all internal urinary catheters. Blood cultures and urine cultures sent. Will recommend expanded coverage of urinary pathogens including antifungal coverage. Patient also has infusion port which may need assessment. Will continue to monitor patient closely and await transfer for IR intervention. Agree with supportive care while currently in emergency department.
[2017-10-12] MEDS: HYDROmorphone INJ 1 MG/ML SYR IV PRN (21:02)
[2017-10-13] MEDS ORDERED: VANCOMYCIN 1GM/270ML NSS IV STA (01:20)
--- NOTE | 2017-10-13 01:22 | EMERGENCY ROOM VISIT NOTE ---
ED Visit Note First contact with patient: 01:21 I received this patient at change of shift signout. The patient was awaiting transfer. He was evaluated by urology. He was felt to be a good candidate for inpatient management but the patient's course is complicated and he may require nephrostomy tubes. He was accepted at [facility] however there was a long delay awaiting the patient's bed. The case was discussed with me by the charge nurse. At this time we have called [facility] again and they have reassured us that a bed will become available this evening. I reviewed the patient's laboratory and radiographic studies. I also reviewed the medications that were ordered for antibiotics. He was already given a dose of Rocephin as well as caspofungin and vancomycin. He is due for another dose of vancomycin at this time. That was ordered by myself. He will not require another dose of Rocephin or caspofungin until approximately 1 PM on 10/13/2017. At this time we are still awaiting a bed assignment and then the transfer will proceed.
[2017-10-13] MEDS: HYDROmorphone INJ 1 MG/ML SYR IV PRN ×3 (01:43→07:46)
[2017-10-13] MEDS ORDERED: ONDANSETRON INJ 2 MG/ML 2 ML VIAL IV STA (01:44)
[2017-10-13 06:36] VITALS: TEMP 37.3
--- NOTE | 2017-10-13 06:46 | EMERGENCY ROOM VISIT NOTE ---
ED Visit Note First contact with patient: 04:05 I received this patient in signout at the change of shift, pending transfer to [facility]. The patient was originally seen by Dr. Kebede in the emergency department with urology, Dr. Vaca. The patient is felt to require urgent percutaneous nephrostomy tube for ureteral obstruction and failed ureteral stent. The patient is receiving IV ceftriaxone, IV vancomycin and IV Caspofungin. Patient is receiving IV Dilaudid on a when necessary basis for pain management. He has ambulated to the bathroom several times for loose bowels related to his chemotherapy. The patient was discussed with Dr. Shea of the hospitalist service. He was evaluated and felt to be too high risk to admit to [facility] awaiting a bed at the tertiary care facility. Dr. Grissom of urology was consulted who stated the patient could await transfer in the ICU, although this is not optimal for his care. The patient requires a percutaneous nephrostomy tube TOSIN as he is obstructed and septic. The transfer center at [facility] was again contacted by me directly. Urology, Dr. Olvera was contacted at [facility]. He stated that interventional radiology would need to accept this patient to the emergency department. The transfer center assured me that they would have a bed available within the next 1.5 hours as the "maintenance issue" has been resolved. They will contact the nursing staff to remove the existing patient out of the room and put in for a "stat clean." They also would contact life flight for the possibility of air transport. Poor weather is limiting the ability to transport by air. The patient has been updated on multiple occasions. He remains afebrile with vital signs stable. His antibiotics are up -to-date at this time. He last receive IV vancomycin at 1:20 AM. Caspofungin and ceftriaxone are once daily dosing and will be required later today. At this time the patient has been accepted to an ICU bed at 0645 AM after approximately 20 hours in the emergency department. ALS ground transport has been arranged by [facility].
[2017-10-13] MEDS ORDERED: ONDANSETRON INJ 2 MG/ML 2 ML VIAL ONE (07:50)
[2017-10-13 08:14] VITALS: BP 147/82; PULSE 55; O2SAT 93
== END 2017-10-13 07:45 | disposition short-term general hospital (02) ==
LOC: C.EDB 10:23 → C.EDA 10-13 07:45
DX: N13.1 Hydronephrosis with ureteral stricture, not elsewhere classified (principal); N13.8 Other obstructive and reflux uropathy; C67.9 Malignant neoplasm of bladder, unspecified; E11.9 Type 2 diabetes mellitus without complications; I25.10 Atherosclerotic heart disease of native coronary artery without angina pectoris; E78.5 Hyperlipidemia, unspecified; Z83.3 Family history of diabetes mellitus; Z79.82 Long term (current) use of aspirin; Z79.899 Other long term (current) drug therapy; Z79.84 Long term (current) use of oral hypoglycemic drugs; Z96.0 Presence of urogenital implants

== ENCOUNTER 2017-10-29 01:30 | Inpatient (IN) | payer OTHER ==
[~2017-10-29] VITALS: Ht 182.9 cm; Wt 99.1 kg
--- NOTE | 2017-10-29 01:50 | EMERGENCY ROOM VISIT NOTE ---
History Report prepared by Francisco: Jeanine Oliveira Under the Supervision of: Dr. Nishant Rowe M.D. First contact with patient: 01:48 Chief Complaint: URINARY SYMPTOMS Stated Complaint: SHARP PAINS IN STOMACH HAS BLADDER CANCER History of Present Illness The patient is a 62 year old male who presents to the Emergency Room with complaints of persistent abdominal pain that started last night. The patient rates his pain a 9/10 in severity. He notes he has bladder cancer. The patient got out of [facility] 1 week ago. The patient had his last chemotherapy treatment 5 days ago. He states he has pain in his bladder, constant aching, chills, sweats, nausea, and right flank pain. He notes he felt like he had a fever. He states he recently finished antibiotics for C. Diff. The patient reports he took oxycodone around 6pm last night. Source of History: patient Onset: last night Position: abdomen Symptom Intensity: 9/10 Associated Symptoms: + chills, + nausea Note: Additional symptoms: pain in bladder, sweats, right flank pain. Review of Systems See HPI for pertinent positives & negatives. A total of 10 systems reviewed and were otherwise negative. Past Medical & Surgical Medical Problems: (1) Abdominal pain (2) Bladder pain (3) Chronic back pain (4) Diabetes mellitus (5) Dyslipidemia (6) Gross hematuria (7) Gross hematuria (8) Intractable pain (9) Postop check (10) UTI (urinary tract infection) Family History Cancer Diabetes mellitus Social History Smoking Status: Current Every Day Smoker Drug Use: none Marital Status: Housing Status: lives with significant other Occupation Status: retired Current/Historical Medications Scheduled Aspirin (Aspirin Ec), 81 MG PO QAM Atorvastatin (Lipitor), 80 MG PO QPM Citalopram Hydrobromide (Citalopram Hydrobromide), 10 MG PO QAM Fentanyl (Duragesic), 75 MCG TD Q72H Fentanyl (Duragesic), 75 MCG TD Q72H Gabapentin (Gabapentin), 300 MG PO DAILY@1200 Gabapentin (Gabapentin), 600 MG PO AMPM Gabapentin (Neurontin), 300 MG PO DAILY@ NOON Lisinopril (Lisinopril), 2.5 MG PO QAM Metoprolol Tartrate (Lopressor) (Lopressor), 25 MG PO BID Psyllium (Konsyl), 1 PKT PO TIDM Tamsulosin Hcl (Flomax), 0.4 MG PO QPM Scheduled PRN Albuterol Sulfate (Proair Respiclick), 2 PUFFS INH UD PRN for SOB/Wheezing Lactulose (Lactulose), 30 GM PO DAILY PRN for Constipation Ondansetron Odt (Zofran Odt), 4 MG SL Q8 PRN for Nausea Oxybutynin Chloride (Ditropan), 5 MG PO TID PRN for Bladder pain Oxycodone/Acetaminophen 10MG/325MG (Oxycodone/Acetaminophen 10MG/325MG), 1 TAB PO QID PRN for Pain Phenazopyridine HCl (Pyridium), 200 MG PO TID PRN for Bladder pain Allergies Coded Allergies: No Known Allergies (Unverified , 10/12/17) Physical Exam Vital Signs Date Time Temp Pulse Resp B/P (MAP) Pulse Ox O2 Delivery O2 Flow Rate FiO2 10/29/17 05:22 66 18 117/72 99 Room Air 10/29/17 04:24 67 18 104/63 97 Nasal Cannula 2.0 10/29/17 03:42 69 18 104/65 95 Room Air 10/29/17 01:41 36.9 85 20 101/68 97 Room Air Physical Exam GENERAL: Patient is chronically unwell appearing and in moderate distress. HEENT: No acute trauma, normocephalic atraumatic, mucous membranes moist, no nasal congestion, no scleral icterus. NECK: No stridor, no adenopathy, no meningismus, trachea is midline. LUNGS: No dyspnea. Clear to auscultation and equal bilaterally. No wheeze, no rhonchi. HEART: Regular rate and rhythm. No murmurs, rubs, gallops appreciated. ABDOMEN: Soft, vague tenderness of entire abdomen, bowel sounds positive, no masses appreciated, no peritonitis. BACK: No midline tenderness, no CVA tenderness. Right nephrostomy tube with cloudy urine output. EXTREMITIES: Normal motion all extremities, no cyanosis, no edema. NEUROLOGIC: Alert and oriented, no acute motor or sensory deficits, no focal weakness, cranial nerves grossly intact. SKIN: No rash, no jaundice, no diaphoresis. Medical Decision & Procedures Laboratory Results 10/29/17 03:00 Red Blood Count 3.43, Mean Corpuscular Volume 85.4, Mean Corpuscular Hemoglobin 29.7, Mean Corpuscular Hemoglobin Concent 34.8, Mean Platelet Volume 9.2, Neutrophils (%) (Auto) 87.4, Lymphocytes (%) (Auto) 4.5, Monocytes (%) (Auto) 1.5, Eosinophils (%) (Auto) 0.1, Basophils (%) (Auto) 0.1, Neutrophils # (Auto) 10.72, Lymphocytes # (Auto) 0.55, Monocytes # (Auto) 0.18, Eosinophils # (Auto) 0.01, Basophils # (Auto) 0.01 10/29/17 03:00 Test 10/29/17 02:30 10/29/17 03:00 10/29/17 03:20 Urine Color YELLOW Urine Appearance TURBID (CLEAR) Urine pH 5.0 (4.5-7.5) Urine Specific [place] 1.017 (1.000-1.030) Urine Protein 2+ (NEG) Urine Glucose (UA) NEG (NEG) Urine Ketones NEG (NEG) Urine Occult Blood 2+ (NEG) Urine Nitrite POS (NEG) Urine Bilirubin NEG (NEG) Urine Urobilinogen NEG (NEG) Urine Leukocyte Esterase LARGE (NEG) Urine WBC (Auto) >30 /hpf (0-5) Urine RBC (Auto) 5-10 /hpf (0-4) Urine Hyaline Casts (Auto) 0 /lpf (0-5) Urine Epithelial Cells (Auto) 20-30 /lpf (0-5) Urine Bacteria (Auto) 4+ (NEG) Urine Crystals URIC ACID (NONE PRSENT) Urine Pathogenic Casts /lpf (0) Urine Yeast (Auto) BUD W/ HYPHAE (NONE PRSENT) White Blood Count 12.25 K/uL (4.8-10.8) Red Blood Count 3.43 M/uL (4.7-6.1) Hemoglobin 10.2 g/dL (14.0-18.0) Hematocrit 29.3 % (42-52) Mean Corpuscular Volume 85.4 fL (80-100) Mean Corpuscular Hemoglobin 29.7 pg (25-34) Mean Corpuscular Hemoglobin Concent 34.8 g/dl (32-36) Platelet Count 140 K/uL (130-400) Mean Platelet Volume 9.2 fL (7.4-10.4) Neutrophils (%) (Auto) 87.4 % Lymphocytes (%) (Auto) 4.5 % Monocytes (%) (Auto) 1.5 % Eosinophils (%) (Auto) 0.1 % Basophils (%) (Auto) 0.1 % Neutrophils # (Auto) 10.72 K/uL (1.4-6.5) Lymphocytes # (Auto) 0.55 K/uL (1.2-3.4) Monocytes # (Auto) 0.18 K/uL (0.11-0.59) Eosinophils # (Auto) 0.01 K/uL (0-0.5) Basophils # (Auto) 0.01 K/uL (0-0.2) RDW Standard Deviation 46.1 fL (36.4-46.3) RDW Coefficient of Variation 14.9 % (11.5-14.5) Immature Granulocyte % (Auto) 6.4 % Immature Granulocyte # (Auto) 0.78 K/uL (0.00-0.02) Hypersegmented Polys 1+ Toxic Granulation 1+ Toxic Vacuolation 1+ Dohle Bodies 2+ Prothrombin Time 10.9 SECONDS (9.0-12.0) Prothromb Time International Ratio 1.0 (0.9-1.1) Anion Gap 8.0 mmol/L (3-11) Est Creatinine Clear Calc Drug Dose 54.3 ml/min Estimated GFR () 55.3 Estimated GFR (Non- 47.7 BUN/Creatinine Ratio 22.7 (10-20) Calcium Level 8.4 mg/dl (8.5-10.1) Magnesium Level 1.1 mg/dl (1.8-2.4) Total Bilirubin 0.6 mg/dl (0.2-1) Direct Bilirubin 0.1 mg/dl (0-0.2) Aspartate Amino Transf (AST/SGOT) 16 U/L (15-37) Alanine Aminotransferase (ALT/SGPT) 31 U/L (12-78) Alkaline Phosphatase 165 U/L (45-117) Total Creatine Kinase 34 U/L (39-308) C-Reactive Protein 1.62 mg/dl (0-0.29) Total Protein 7.3 gm/dl (6.4-8.2) Albumin 3.6 gm/dl (3.4-5.0) Procalcitonin 0.31 ng/ml (0-0.5) Bedside Lactic Acid Venous 1.10 mmol/L (0.90-1.70) Laboratory results as reviewed by me. Medications Administered Medications (Trade) Dose Ordered Sig/Young Route Start Time Stop Time Status Last Admin Dose Admin Sodium Chloride 1,000 ml @ 999 mls/hr Q1H1M STAT IV 10/29/17 02:04 10/29/17 03:04 DC 10/29/17 02:04 999 MLS/HR Hydromorphone HCl (Dilaudid Inj) 1 mg NOW STAT IV 10/29/17 02:04 10/29/17 02:07 DC 10/29/17 03:27 1 MG Ondansetron HCl (Zofran Inj) 4 mg NOW STAT IV 10/29/17 02:04 10/29/17 02:07 DC 10/29/17 03:24 4 MG Hydromorphone HCl (Dilaudid Inj) 1 mg NOW STAT IV 10/29/17 03:49 10/29/17 03:50 DC 10/29/17 04:13 1 MG Vancomycin HCl 1500 mg/Sodium Chloride 530 ml @ 200 mls/hr ONE STAT IV 10/29/17 04:25 10/29/17 07:03 10/29/17 05:42 200 MLS/HR Magnesium Sulfate (Magnesium Sulfate) 2 gm NOW STAT IV 10/29/17 04:27 10/29/17 04:28 DC 10/29/17 05:22 2 GM ED Course 0150: The patient was evaluated in room B6. A complete history and physical exam was performed 0325: Difficulty accessing port. Was able to insert peripheral IV after some time. 0400: Discussed the patient's case with Dr. Shea, Hospitalist. The patient will be evaluated for further treatment and disposition. Medical Decision Differential: Viral, Pharyngitis, Cellulitis, Pneumonia, Influenza, Meningitis, Sepsis, Bacteremia, UTI/Pyelonephritis, Endocrine, Toxicologic, amongst other pathologies entertained. 62 yr old male with complex bladder ca issue resulting in recent right nephrostomy tube arrives for evaluation of chills, weakness, and increasing diffuse pains a week post last chemo. WBC mildly elevated. He has 4+ bacteria from both nephrostomy and solano which are new from previous UA. He has normal BP and lactic acid. He is dehydrated and clearly malnutrition with mag and Na dropping. He is not currently septic though with his history bacteremia unfortunately likely. Blood cultures were obtained but unable to get port to draw. Given IV Cefepime and IV Vanco based on previous cultures blood/ua. Initially ordered caspo as he had fungemia 2 weeks ago and has yeast in UAs as well, though after discussing with hospitalist this was cancelled. Patient without respiratory complaints nor chest pains. He is requiring repeat IV narcotics. He does not have surgical abdomen by exam thus I feel that holding off on imaging reasonable at this time. Stable throughout and both he and are happy with plan to come in to hospital. Medication Reconcilliation Current Medication List: was personally reviewed by me Blood Pressure Screening Patient's blood pressure: Normal blood pressure Impression Primary Impression: Urinary tract infection associated with nephrostomy catheter Additional Impressions: Hypomagnesemia Acute hyponatremia Generalized weakness Scribe Attestation The scribe's documentation has been prepared under my direction and personally reviewed by me in its entirety. I confirm that the note above accurately reflects all work, treatment, procedures, and medical decision making performed by me. Departure Information Referrals Vsayl Westbrook D.O. (PCP) Patient Instructions My [facility] Problem Qualifiers
[2017-10-29] MEDS ORDERED: SODIUM CHLORIDE 0.9% 1000ML 1,000 ML IV STA (02:04)
[2017-10-29] MEDS ORDERED: HYDROmorphone INJ 1 MG/ML SYR IV STA ×2 (02:04→03:49)
[2017-10-29] MEDS ORDERED: ONDANSETRON INJ 2 MG/ML 2 ML VIAL IV STA (02:04)
[2017-10-29] MEDS ORDERED: HYDROmorphone INJ 1 MG/ML SYR IV PRN (04:00)
[2017-10-29 04:02] LABS: ALBUMIN 3.6 gm/dl (3.4-5.0); CALCIUM 8.4 mg/dl (8.5-10.1); CREATININE 1.53 mg/dl (0.60-1.40); POTASSIUM 4.1 mmol/L (3.5-5.1)
[2017-10-29 04:06] LABS: TOTAL PROTEIN 7.3 gm/dl (6.4-8.2)
[2017-10-29 04:17] LABS: HEMATOCRIT 29.3 % (42-52); HEMOGLOBIN 10.2 g/dL (14.0-18.0); MEAN CELL VOLUME 85.4 fL (80-100); MEAN CORPUSCULAR HEMOGLOBIN 29.7 pg (25-34); MEAN CORPUSCULAR HGB CONC 34.8 g/dl (32-36); MEAN PLATELET VOLUME 9.2 fL (7.4-10.4); PLATELET COUNT 140 K/uL (130-400); RED CELL DISTRIBUTION WIDTH CV 14.9 % (11.5-14.5); RED CELL DISTRIBUTION WIDTH SD 46.1 fL (36.4-46.3); WHITE BLOOD COUNT 12.25 K/uL (4.8-10.8)
[2017-10-29] MEDS ORDERED: VANCOMYCIN INJ 1,500 MG in SODIUM CHLORIDE 0.9% 500ML 500 ML IV STA (04:25)
[2017-10-29] MEDS ORDERED: CEFEPIME IV 1,000 MG in DEXTROSE 5% 100ML 100 ML IV STA (04:25)
[2017-10-29] MEDS ORDERED: MAGNESIUM SULFATE 1GM / D5W 1 GM BAG IV STA (04:27)
[2017-10-29] MEDS ORDERED: VANCOMYCIN CONSULT ACTIVE PRN (04:30)
[2017-10-29] MEDS ORDERED: CASPOFUNGIN INJ 70 MG in SODIUM CHLORIDE 0.9% 250ML 250 ML IV SCH (04:30)
[2017-10-29] MEDS ORDERED: ALBUTEROL HFA 8 GM INHALER INH PRN (04:45)
[2017-10-29] MEDS ORDERED: ACETAMINOPHEN 325 MG TAB PO PRN (04:45)
[2017-10-29] MEDS ORDERED: ALUMINUM/MAGNESIUM/SIMETH (MAALOX MAX) 30 ML UDC PO PRN (04:45)
[2017-10-29] MEDS ORDERED: POLYETHYLENE (MIRALAX) 17 GM PACK PO PRN (04:45)
[2017-10-29] MEDS ORDERED: MAGNESIUM HYDROXIDE SUSP 30 ML UDC PO PRN (04:45)
[2017-10-29] MEDS ORDERED: ZOLPIDEM TARTRATE 5 MG TAB PO PRN (04:45)
[2017-10-29] MEDS ORDERED: PHENAZOPYRIDINE HCL 200 MG TAB PO PRN (04:45)
[2017-10-29] MEDS ORDERED: ONDANSETRON INJ 2 MG/ML 2 ML VIAL IV PRN (04:45)
[2017-10-29] MEDS ORDERED: DRGTP75 TD (04:57)
[2017-10-29 05:01] LABS: BASO % 0.1 %; BASO ABS # 0.01 K/uL (0-0.2); EOS % 0.1 %; EOS ABS # 0.01 K/uL (0-0.5); IG# 0.78 K/uL (0.00-0.02); LYMPH % 4.5 %; LYMPH ABS # 0.55 K/uL (1.2-3.4); MONO % 1.5 %; MONO ABS # 0.18 K/uL (0.11-0.59); NEUT % 87.4 %; NEUT ABS # 10.72 K/uL (1.4-6.5)
[2017-10-29] MEDS ORDERED: NRN600 PO (05:01)
[2017-10-29] MEDS ORDERED: GABA-113 PO (05:02)
[2017-10-29] MEDS ORDERED: LISI-729 PO (05:04)
--- NOTE | 2017-10-29 06:08 | History and Physical ---
History & Physical Date & Time of Service: Oct 29, 2017 at 04:31 Chief Complaint: Sharp Pains In Stomach Has Bladder Cancer Primary Care Physician: Vasyl Westbrook D.O. History of Present Illness Source: patient, hospital records 62 y/o M Hx DM II, CAD, urothelial bladder CA - post resection and R ureteral stent. Pt with chronic Hernandez. Treated for pyelo/urosepsis due to klebsiella and had a right sided ureteral stent exchanged due to CA invasion/ obstruction. A Port was placed for chemotherapy which commenced on 09/25 w/ MVAC regimen. He was again obstructed 10/12 and was transferred to [facility] where he ultimately received a R nephrostomy tube as restenting failed. While at [facility] he states he had a disseminated fungal infection for which he was prescribed Diflucan, and completed his prescription 2 days ago. He also developed C diff and completed a course of Vancocin 2 day ago. He states that he has ongoing diarrhea. Pt presents today with severe lower abdominal pain. He had a fever one day ago. A UA obtained both from the catheter and the nephrostomy is strongly (+). He denies SOB, a productive cough, nausea or vomiting. Initial labs are notable for leukocytosis, anemia, hyponatremia and SANTHOSH. He is afebrile with stable vital signs at the time of admission. Past Medical/Surgical History 1) Invasive bladder CA - urothelial - possible invasion into rectum - TURBT performed 08/08 -- Commenced chemo with MVAC regimen 09/25 2) R ureteral obstruction due to CA - stent placed 08/08 - replace 09/14 - required nephrostomy 10/12 3) CAD - STEMI 12/11 - diffuse CAD - IVY placed in RCA 4) DM II 5) HPL 6) HTN Family History Cancer Diabetes mellitus Social History Smoking Status: Current Every Day Smoker Drug Use: none Marital Status: Occupational Status: retired Allergies Coded Allergies: No Known Allergies (Unverified , 10/12/17) Home Medications Scheduled Aspirin (Aspirin Ec), 81 MG PO QAM Atorvastatin (Lipitor), 80 MG PO QPM Citalopram Hydrobromide (Citalopram Hydrobromide), 10 MG PO QAM Fentanyl (Duragesic), 75 MCG TD Q72H Fentanyl (Duragesic), 75 MCG TD Q72H Gabapentin (Gabapentin), 300 MG PO DAILY@1200 Gabapentin (Gabapentin), 600 MG PO AMPM Gabapentin (Neurontin), 300 MG PO DAILY@ NOON Lisinopril (Lisinopril), 2.5 MG PO QAM Metoprolol Tartrate (Lopressor) (Lopressor), 25 MG PO BID Psyllium (Konsyl), 1 PKT PO TIDM Tamsulosin Hcl (Flomax), 0.4 MG PO QPM Scheduled PRN Albuterol Sulfate (Proair Respiclick), 2 PUFFS INH UD PRN for SOB/Wheezing Lactulose (Lactulose), 30 GM PO DAILY PRN for Constipation Ondansetron Odt (Zofran Odt), 4 MG SL Q8 PRN for Nausea Oxybutynin Chloride (Ditropan), 5 MG PO TID PRN for Bladder pain Oxycodone/Acetaminophen 10MG/325MG (Oxycodone/Acetaminophen 10MG/325MG), 1 TAB PO QID PRN for Pain Phenazopyridine HCl (Pyridium), 200 MG PO TID PRN for Bladder pain Review of Systems Constitutional: + weakness, + fatigue Eyes: No worsening of vision ENT: No hearing loss, No unusual epistaxis, No nasal symptoms Respiratory: No cough, No sputum, No wheezing Cardiovascular: No chest pain, No orthopnea, No PND Abdomen: + pain, + nausea, No vomiting, No diarrhea Musculoskeletal: No joint pain Genitourinary - Male: No hematuria Neurologic: + weakness, No memory loss, No paralysis Psychiatric: No depression symptoms Endocrine: + fatigue Hematologic / Lymphatic: No abnormal bleeding/bruising Integumentary: No rash Allergic / Immunologic: No environmental allergies Physical Exam Vital Signs Date Time Temp Pulse Resp B/P (MAP) Pulse Ox O2 Delivery O2 Flow Rate FiO2 10/29/17 04:24 67 18 104/63 97 Nasal Cannula 2.0 10/29/17 03:42 69 18 104/65 95 Room Air 10/29/17 01:41 36.9 85 20 101/68 97 Room Air General Appearance: WD/WN, no apparent distress Head: normocephalic Eyes: normal inspection ENT: normal ENT inspection, pharynx normal Neck: supple, no JVD Respiratory/Chest: chest non-tender, lungs clear, normal breath sounds, + pertinent finding (Port in L chest - subcutaneous - no evidence of infection) Cardiovascular: regular rate, rhythm, no edema, no gallop Abdomen/GI: normal bowel sounds, soft, + pertinent finding (Mildly tender lower abdomen/suprapubic area ) Back: normal inspection, + pertinent finding (R nephrostomy) Neurologic/Psych: molder hand II-XII nml as tested, no motor/sensory deficits, alert, oriented x 3 Skin: normal color Diagnostics Laboratory Results Results Past 24 Hours Test 10/29/17 02:30 10/29/17 03:00 10/29/17 03:20 Range/Units Urine Color YELLOW Urine Appearance TURBID CLEAR Urine pH 5.0 4.5-7.5 Urine Specific [place] 1.017 1.000-1.030 Urine Protein 2+ NEG Urine Glucose (UA) NEG NEG Urine Ketones NEG NEG Urine Occult Blood 2+ NEG Urine Nitrite POS NEG Urine Bilirubin NEG NEG Urine Urobilinogen NEG NEG Urine Leukocyte Esterase LARGE NEG Urine WBC (Auto) >30 0-5 /hpf Urine RBC (Auto) 5-10 0-4 /hpf Urine Hyaline Casts (Auto) 0 0-5 /lpf Urine Epithelial Cells (Auto) 20-30 0-5 /lpf Urine Bacteria (Auto) 4+ NEG Urine Crystals URIC ACID NONE PRSENT Urine Pathogenic Casts 0 /lpf Urine Yeast (Auto) BUD W/ HYPHAE NONE PRSENT White Blood Count 12.25 4.8-10.8 K/uL Red Blood Count 3.43 4.7-6.1 M/uL Hemoglobin 10.2 14.0-18.0 g/dL Hematocrit 29.3 42-52 % Mean Corpuscular Volume 85.4 80-100 fL Mean Corpuscular Hemoglobin 29.7 25-34 pg Mean Corpuscular Hemoglobin Concent 34.8 32-36 g/dl Platelet Count 140 130-400 K/uL Mean Platelet Volume 9.2 7.4-10.4 fL RDW Standard Deviation 46.1 36.4-46.3 fL RDW Coefficient of Variation 14.9 11.5-14.5 % Prothrombin Time 10.9 9.0-12.0 SECONDS Prothromb Time International Ratio 1.0 0.9-1.1 Sodium Level 129 136-145 mmol/L Potassium Level 4.1 3.5-5.1 mmol/L Chloride Level 96 98-107 mmol/L Carbon Dioxide Level 25 21-32 mmol/L Anion Gap 8.0 3-11 mmol/L Blood Urea Nitrogen 35 7-18 mg/dl Creatinine 1.53 0.60-1.40 mg/dl Est Creatinine Clear Calc Drug Dose 54.3 ml/min Estimated GFR () 55.3 Estimated GFR (Non- 47.7 BUN/Creatinine Ratio 22.7 10-20 Random Glucose 123 70-99 mg/dl Calcium Level 8.4 8.5-10.1 mg/dl Magnesium Level 1.1 1.8-2.4 mg/dl Total Bilirubin 0.6 0.2-1 mg/dl Direct Bilirubin 0.1 0-0.2 mg/dl Aspartate Amino Transf (AST/SGOT) 16 15-37 U/L Alanine Aminotransferase (ALT/SGPT) 31 12-78 U/L Alkaline Phosphatase 165 45-117 U/L Total Creatine Kinase 34 39-308 U/L C-Reactive Protein 1.62 0-0.29 mg/dl Total Protein 7.3 6.4-8.2 gm/dl Albumin 3.6 3.4-5.0 gm/dl Procalcitonin 0.31 0-0.5 ng/ml Bedside Lactic Acid Venous 1.10 0.90-1.70 mmol/L Microbiology Results 10/29/17 Blood Culture, Received Pending 10/29/17 Blood Culture, Received Pending 10/29/17 Urine Culture, Received Pending 10/29/17 Urine Culture, Received Pending Impression Assessment and Plan 62 y/o M Hx DM II, CAD, urothelial bladder CA - post resection and R ureteral stent. Pt with chronic Hernandez. Treated for pyelo/urosepsis due to klebsiella and had a right sided ureteral stent exchanged due to CA invasion/ obstruction. A Port was placed for chemotherapy which commenced on 09/25 w/ MVAC regimen. He was again obstructed 10/12 and was transferred to [facility] where he ultimately received a R nephrostomy tube as restenting failed. While at [facility] he states he had a disseminated fungal infection for which he was prescribed Diflucan, and completed his prescription 2 days ago. He also developed C diff and completed a course of Vancocin 2 day ago. He states that he has ongoing diarrhea. Pt presents today with severe lower abdominal pain. He had a fever one day ago. A UA obtained both from the catheter and the nephrostomy is strongly (+). He denies SOB, a productive cough, nausea or vomiting. Initial labs are notable for leukocytosis, anemia, hyponatremia and SANTHOSH. 1) UTI - abdominal pain - we will placed the pt on Cefepime pending culture results. He received a dose of Vanc in the ER. His fever is likely due to a UTI however, other sources such as persistent C-diff and a line-related infection cannot be ruled out. We will also place him back on an antifungal - Diflucan for now. We have consulted ID. Reg his abdominal pain, cause is unclear - may be due to cystitis - urology is consulted. Narcotics provided. Note that he was not entirely sure that he had been taking Diflucan or another antifungal and was not sure of the dose. This will need confirmation AM as he purchased this at a local pharmacy which is closed at the time of admission. 2) SANTHOSH - renal function has been variable on review of labs so it is not clear if this represents a new baseline - IVF provided - will trend BMP 3) Recent C-diff - has ongoing diarrhea - toxin screen ordered, pt on isolation. As he completed Vanc 2 days ago and we are placing him on broad- spectrum antibiotics, we will restart PO Vanc. 4) Hyponatremia - has had milder hypoNa - possibly hypovolemic although SIADH is in differential - will provide IVF and recheck a BMP 5) DM II - placed on Q6H SS 6) CAD - no evidence of ACS - cont ASA, statin, Bblocker 7) HTN - Cont Metoprolol - Lisinopril held due to SANTHOSH 8) Anemia - Hb is at baseline Full code - SCDs due to hematuria - if he remains hospitalized a trial of Heparin should ensue Total time for this admit including review of labs, meds, imaging - discussion with pt and ER attending - 38 min Resuscitation Status VTE Prophylaxis Will order VTE Prophylaxis: Yes
[2017-10-29] MEDS: HYDROmorphone INJ 1 MG/ML SYR IV PRN ×5 (07:24→23:25)
[2017-10-29 07:34] VITALS: BP 111/63; PULSE 60; TEMP 36.8; O2SAT 100
[2017-10-29 07:45] VITALS: BP 111/63; PULSE 60; TEMP 36.8; O2SAT 100; Ht 182.9 cm; Wt 99.1 kg
[2017-10-29] MEDS: SODIUM CHLORIDE 0.9% 1000ML 1,000 ML IV SCH ×2 (07:45→17:52)
[2017-10-29] MEDS ORDERED: LACTULOSE SYRUP 30 GM/45 ML UDP PO PRN (08:00)
[2017-10-29] MEDS: CHECK FENTANYL PATCH PLACEMENT SCH ×3 (08:00→23:26)
[2017-10-29] MEDS: RASPBERRY SYRUP 5 ML UDP PO SCH ×4 (09:40→20:38)
[2017-10-29] MEDS: VANCOMYCIN HCL 125 MG/2.5ML SOLN PO SCH ×4 (09:41→20:38)
[2017-10-29] MEDS: FLUCONAZOLE 100 MG TAB PO SCH (09:42)
[2017-10-29] MEDS: CITALOPRAM 20 MG TAB PO SCH (09:43)
[2017-10-29] MEDS: METOPROLOL TARTRATE 25 MG TAB PO SCH ×2 (09:43→20:43)
[2017-10-29] MEDS: DOCUSATE SODIUM 100 MG CAP PO SCH ×2 (09:43→20:37)
[2017-10-29] MEDS: ASPIRIN 81 MG ECTAB PO SCH (09:44)
[2017-10-29] MEDS: PSYLLIUM 58.6% PWD PACK S\\F PO SCH ×3 (09:45→17:00)
[2017-10-29] MEDS: GABAPENTIN 600 MG TAB PO SCH ×2 (09:45→20:38)
[2017-10-29] MEDS: OXYCODONE/ACETAMINOPHEN 10/325MG TAB PO PRN (09:52)
[2017-10-29 09:56] LABS: HEMATOCRIT 24.5 % (42-52); HEMOGLOBIN 8.4 g/dL (14.0-18.0); MEAN CELL VOLUME 85.7 fL (80-100); MEAN CORPUSCULAR HEMOGLOBIN 29.4 pg (25-34); MEAN CORPUSCULAR HGB CONC 34.3 g/dl (32-36); RED CELL DISTRIBUTION WIDTH CV 14.9 % (11.5-14.5); WHITE BLOOD COUNT 9.16 K/uL (4.8-10.8)
[2017-10-29 10:21] LABS: MEAN PLATELET VOLUME 8.2 fL (7.4-10.4); PLATELET COUNT 92 K/uL (130-400)
[2017-10-29 10:26] LABS: CALCIUM 7.7 mg/dl (8.5-10.1); CREATININE 1.36 mg/dl (0.60-1.40)
[2017-10-29 11:14] VITALS: BP 99/64; PULSE 65; TEMP 36.6; O2SAT 96
[2017-10-29] MEDS: MAGNESIUM SULFATE 1GM / D5W 1 GM in PREMIXED IN D5W 100 ML IV SCH ×2 (11:21→12:30)
[2017-10-29] MEDS: INSULIN ASPART 100 UNITS/ML 3 ML PEN SC SCH ×2 (12:00→17:53)
[2017-10-29] MEDS: GABAPENTIN 300 MG CAP PO SCH (12:33)
[2017-10-29] MEDS: CEFEPIME IV 1,000 MG in DEXTROSE 5% 100ML 100 ML IV SCH ×2 (12:37→20:34)
[2017-10-29] MEDS ORDERED: FENTANYL PATCH REMOVE & WASTE STA (12:50)
[2017-10-29] MEDS ORDERED: FENTANYL 75 MCG/HR TDSY TD STA (12:50)
--- NOTE | 2017-10-29 13:06 | Urology Consultation ---
History General Date of Service: Oct 29, 2017. Primary Care Physician: Vasyl Westbrook D.O. History of Present Illness 62-year-old white male with an invasive bladder cancer. Currently has a right nephrostomy tube and a Hernandez catheter. Currently is receiving chemotherapy. Plan is to have a cystoprostatectomy and ileal conduit in November. Was admitted for lower abdominal pain and urinary tract infection. Currently he says the abdominal pain is subsiding. Nephrostomy tube and Hernandez are both draining clear urine. Laboratory Date/Time Source Procedure Growth Status 10/29/17 03:39 Blood Blood Culture Pending Received 10/29/17 03:00 Blood Blood Culture Pending Received 10/29/17 02:30 Urine,Catheterized Urine Culture Pending Received 10/29/17 02:30 Urine,Catheterized Urine Culture Pending Received Last 24 Hours Test 10/29/17 02:30 10/29/17 03:00 10/29/17 03:20 10/29/17 07:44 Urine Color YELLOW Urine Appearance TURBID Urine pH 5.0 Urine Specific [place] 1.017 Urine Protein 2+ Urine Glucose (UA) NEG Urine Ketones NEG Urine Occult Blood 2+ Urine Nitrite POS Urine Bilirubin NEG Urine Urobilinogen NEG Urine Leukocyte Esterase LARGE Urine WBC (Auto) >30 /hpf Urine RBC (Auto) 5-10 /hpf Urine Hyaline Casts (Auto) 0 /lpf Urine Epithelial Cells (Auto) 20-30 /lpf Urine Bacteria (Auto) 4+ Urine Crystals URIC ACID Urine Pathogenic Casts /lpf Urine Yeast (Auto) BUD W/ HYPHAE White Blood Count 12.25 K/uL Red Blood Count 3.43 M/uL Hemoglobin 10.2 g/dL Hematocrit 29.3 % Mean Corpuscular Volume 85.4 fL Mean Corpuscular Hemoglobin 29.7 pg Mean Corpuscular Hemoglobin Concent 34.8 g/dl Platelet Count 140 K/uL Mean Platelet Volume 9.2 fL Neutrophils (%) (Auto) 87.4 % Lymphocytes (%) (Auto) 4.5 % Monocytes (%) (Auto) 1.5 % Eosinophils (%) (Auto) 0.1 % Basophils (%) (Auto) 0.1 % Neutrophils # (Auto) 10.72 K/uL Lymphocytes # (Auto) 0.55 K/uL Monocytes # (Auto) 0.18 K/uL Eosinophils # (Auto) 0.01 K/uL Basophils # (Auto) 0.01 K/uL RDW Standard Deviation 46.1 fL RDW Coefficient of Variation 14.9 % Immature Granulocyte % (Auto) 6.4 % Immature Granulocyte # (Auto) 0.78 K/uL Hypersegmented Polys 1+ Toxic Granulation 1+ Toxic Vacuolation 1+ Dohle Bodies 2+ Prothrombin Time 10.9 SECONDS Prothromb Time International Ratio 1.0 Sodium Level 129 mmol/L Potassium Level 4.1 mmol/L Chloride Level 96 mmol/L Carbon Dioxide Level 25 mmol/L Anion Gap 8.0 mmol/L Blood Urea Nitrogen 35 mg/dl Creatinine 1.53 mg/dl Est Creatinine Clear Calc Drug Dose 54.3 ml/min Estimated GFR () 55.3 Estimated GFR (Non- 47.7 BUN/Creatinine Ratio 22.7 Random Glucose 123 mg/dl Calcium Level 8.4 mg/dl Magnesium Level 1.1 mg/dl Total Bilirubin 0.6 mg/dl Direct Bilirubin 0.1 mg/dl Aspartate Amino Transf (AST/SGOT) 16 U/L Alanine Aminotransferase (ALT/SGPT) 31 U/L Alkaline Phosphatase 165 U/L Total Creatine Kinase 34 U/L C-Reactive Protein 1.62 mg/dl Total Protein 7.3 gm/dl Albumin 3.6 gm/dl Procalcitonin 0.31 ng/ml Bedside Lactic Acid Venous 1.10 mmol/L Bedside Glucose 112 mg/dl Test 10/29/17 09:39 10/29/17 11:33 White Blood Count 9.16 K/uL Red Blood Count 2.86 M/uL Hemoglobin 8.4 g/dL Hematocrit 24.5 % Mean Corpuscular Volume 85.7 fL Mean Corpuscular Hemoglobin 29.4 pg Mean Corpuscular Hemoglobin Concent 34.3 g/dl RDW Standard Deviation 46.0 fL RDW Coefficient of Variation 14.9 % Platelet Count 92 K/uL Mean Platelet Volume 8.2 fL Platelet Estimate DECREASED Sodium Level 133 mmol/L Potassium Level 4.0 mmol/L Chloride Level 100 mmol/L Carbon Dioxide Level 26 mmol/L Anion Gap 7.0 mmol/L Blood Urea Nitrogen 32 mg/dl Creatinine 1.36 mg/dl Est Creatinine Clear Calc Drug Dose 61.0 ml/min Estimated GFR () 63.7 Estimated GFR (Non- 55.0 BUN/Creatinine Ratio 23.5 Random Glucose 116 mg/dl Calcium Level 7.7 mg/dl Magnesium Level 1.6 mg/dl Bedside Glucose 116 mg/dl Problem List Medical Problems: (1) Abdominal pain Status: Acute (2) Acute hyponatremia Status: Acute (3) Bladder neoplasm Status: Acute (4) Constipation Status: Acute (5) Fungal infection Status: Acute (6) Generalized weakness Status: Acute (7) Hypomagnesemia Status: Acute (8) Intractable abdominal pain Status: Acute (9) Urinary tract infection associated with nephrostomy catheter Status: Acute (10) UTI (urinary tract infection) Status: Acute Past History arrhythmia, cancer, coronary artery disease, urinary tract infection Past Surgical History: ureteral stent, other Family History Cancer Diabetes mellitus Social History Hx Tobacco Use In Past Year?: No (smoked 1 PPD for 30 years plus) Smoking: non-smoker Drug use: none Marital status: Occupation status: retired History of MDRO No Allergies Coded Allergies: No Known Allergies (Unverified , 10/12/17) Medications Home Medications: Home Meds and Scripts Medications Dose Route/Sig Max Daily Dose Days Date Category Neurontin (Gabapentin) 300 Mg Cap 300 Mg PO DAILY@ NOON 10/29/17 Reported Gabapentin 600 Mg Tab 600 Mg PO AMPM 10/29/17 Reported Duragesic (Fentanyl) 75 Mcg Tdsy 75 Mcg TD Q72H 10/29/17 Reported Aspirin Ec (Aspirin) 81 Mg Tab 81 Mg PO QAM 10/05/17 Reported Lisinopril 2.5 Mg Tab 2.5 Mg PO QAM 10/05/17 Reported Konsyl (Psyllium) 1 Pkt Pack 1 Pkt PO TIDM 30 09/21/17 Rx Oxycodone/Acetaminophen 10MG/325MG 1 Tab Tab 1 Tab PO QID PRN 09/21/17 Rx Gabapentin 300 Mg Cap 300 Mg PO DAILY@1200 09/21/17 Rx Duragesic (Fentanyl) 75 Mcg Tdsy 75 Mcg TD Q72H 09/21/17 Rx Lactulose 30 Gm/45 Ml Syrp 30 Gm PO DAILY PRN 09/21/17 Rx Flomax (Tamsulosin Hcl) 0.4 Mg Cap 0.4 Mg PO QPM 08/31/17 Reported Citalopram Hydrobromide 10 Mg Tab 10 Mg PO QAM 08/31/17 Reported Ditropan (Oxybutynin Chloride) 5 Mg Tab 5 Mg PO TID PRN 08/31/17 Reported Pyridium (Phenazopyridine HCl) 200 Mg Tab 200 Mg PO TID PRN 08/31/17 Reported Zofran Odt (Ondansetron HCl) 8 Mg Soltab 4 Mg SL Q8 PRN 08/31/17 Reported Lipitor (Atorvastatin Calcium) 80 Mg Tab 80 Mg PO QPM 08/22/17 Reported Lopressor (Metoprolol Tartrate) 25 Mg Tab 25 Mg PO BID 08/22/17 Reported Proair Respiclick (Albuterol Sulfate) 108 Mcg/Act Aer 2 Puffs INH UD PRN 08/22/17 Reported Inpatient Medications: Current Inpatient Medications Medications (Trade) Dose Ordered Sig/Young Route Start Time Stop Time Status Last Admin Dose Admin Hydromorphone HCl (Dilaudid Inj) 1 mg Q3H PRN IV 10/29/17 04:45 11/12/17 04:44 10/29/17 10:44 1 MG Aspirin (Ecotrin Tab) 81 mg QAM PO 10/29/17 08:00 11/28/17 08:59 10/29/17 09:44 81 MG Atorvastatin Calcium (Lipitor Tab) 80 mg QPM PO 10/29/17 21:00 11/28/17 20:59 Docusate Sodium (coLACE CAP) 100 mg BID PO 10/29/17 08:00 11/28/17 08:59 10/29/17 09:43 100 MG Fentanyl (Duragesic Patch) 75 mcg Q72H TD 11/01/17 08:00 11/15/17 07:59 Gabapentin (Neurontin Cap) 300 mg DAILY@1200 PO 10/29/17 12:00 11/28/17 11:59 10/29/17 12:33 300 MG Gabapentin (Neurontin Tab) 600 mg BID PO 10/29/17 08:00 11/28/17 07:59 10/29/17 09:45 600 MG Lactulose (Chronulac Syrup) 30 gm DAILY PRN PO 10/29/17 08:00 11/28/17 07:59 Metoprolol Tartrate (Lopressor Tab) 25 mg BID PO 10/29/17 08:00 11/28/17 08:59 10/29/17 09:43 25 MG Oxybutynin Chloride (Ditropan Tab) 5 mg TID PRN PO 10/29/17 04:45 11/28/17 04:44 Oxycodone/ Acetaminophen (Percocet 10-325MG Tab) 1 tab QID PRN PO 10/29/17 04:45 11/12/17 04:44 10/29/17 09:52 1 TAB Phenazopyridine HCl (Pyridium Tab) 200 mg TID PRN PO 10/29/17 04:45 11/28/17 04:44 10/29/17 09:42 200 MG Psyllium Hydrophilic Mucilloid (Metamucil Powder) 1 pkt TIDM PO 10/29/17 08:00 11/28/17 07:59 10/29/17 12:30 1 PKT Tamsulosin HCl (Flomax Cap) 0.4 mg QPM PO 10/29/17 21:00 11/28/17 20:59 Albuterol (Ventolin Hfa Inhaler) 2 puffs DAILY PRN INH 10/29/17 04:45 11/28/17 04:44 Citalopram Hydrobromide (celeXA TAB) 10 mg QAM PO 10/29/17 08:00 11/28/17 08:59 10/29/17 09:43 10 MG Insulin Aspart (novoLOG ASPART) SLIDING SCALE G... Q6 SC 10/29/17 12:00 11/28/17 11:59 Sodium Chloride 1,000 ml @ 125 mls/hr Q8H IV 10/29/17 04:45 10/29/17 20:44 10/29/17 07:45 125 MLS/HR Acetaminophen (Tylenol Tab) 650 mg Q4H PRN PO 10/29/17 04:45 11/28/17 04:44 Al Hydrox/Mg Hydrox/Simethicone (Maalox Max Susp) 15 ml Q4H PRN PO 10/29/17 04:45 11/28/17 04:44 Magnesium Hydroxide (Milk Of Magnesia Susp) 30 ml Q6H PRN PO 10/29/17 04:45 11/28/17 04:44 Polyethylene (Miralax Powder Packet) 17 gm DAILY PRN PO 10/29/17 04:45 11/28/17 04:44 Zolpidem Tartrate (Ambien Tab) 5 mg HSZ PRN PO 10/29/17 04:45 11/28/17 04:44 Ondansetron HCl (Zofran Inj) 4 mg Q6H PRN IV 10/29/17 04:45 11/28/17 04:44 10/29/17 07:31 4 MG Cefepime HCl 1000 mg/Dextrose 111 ml @ 200 mls/hr Q8H IV 10/29/17 12:00 11/08/17 11:59 10/29/17 12:37 200 MLS/HR Fluconazole (Diflucan Tab) 100 mg QAM PO 10/29/17 08:00 11/08/17 08:59 10/29/17 09:42 100 MG Vancomycin HCl (Vancomycin Oral Soln) 125 mg Q6H PO 10/29/17 08:00 11/08/17 07:59 10/29/17 12:38 125 MG Raspberry (Raspberry Syrup 5ml Cup) 5 ml QID PO 10/29/17 08:00 11/12/17 07:59 10/29/17 12:38 5 ML Miscellaneous (Fentanyl Patch Remove & Waste) 1 ea Q3D N/A 11/01/17 07:59 12/01/17 07:58 Miscellaneous Information (Check Fentanyl Patch Placement) 1 ea QS N/A 10/29/17 08:00 11/28/17 07:59 10/29/17 08:00 1 EA Review of Systems Review of Systems Additional Comments: Review of systems reviewed from the admitting history and physical and ER notes Physical Exam Vital Signs: Vital Signs Past 12 Hours Date Time Temp Pulse Resp B/P (MAP) Pulse Ox O2 Delivery O2 Flow Rate FiO2 10/29/17 11:14 36.6 65 18 99/64 (76) 96 10/29/17 07:45 36.8 60 18 111/63 100 Room Air 10/29/17 07:34 36.8 60 18 111/63 (79) 100 10/29/17 05:22 66 18 117/72 99 Room Air 10/29/17 04:24 67 18 104/63 97 Nasal Cannula 2.0 10/29/17 03:42 69 18 104/65 95 Room Air 10/29/17 01:41 36.9 85 20 101/68 97 Room Air Physical Exam: General Appearance: WD/WN, no apparent distress ENT: hearing grossly normal Neck: no JVD Respiratory/Chest: no respiratory distress, no accessory muscle use Gastrointestinal: Abdomen: normal abdomen Bladder: normal bladder Renal: normal renal Liver: normal liver Spleen: normal spleen Genitourinary - Male: Penis: normal penis Urethral Meatus: normal urethral meatus Testes: normal testes Epididymides: normal epididymides Scrotum: normal scrotum Assessment & Plan Assessment & Plan Assessment Patient with T3 TCC Plan is for cystoprostatectomy ileal conduit in November He is continuing on his chemotherapy for now Abdominal pain seems to be subsiding Urine is clear Cultures pending Would continue current therapy
[2017-10-29 15:12] VITALS: BP 110/70; PULSE 64; TEMP 36.9; O2SAT 98
[2017-10-29 16:00] VITALS: O2SAT 98
[2017-10-29 20:00] VITALS: BP 100/60; PULSE 72; TEMP 37; O2SAT 99
--- NOTE | 2017-10-29 20:09 | Progress Note ---
Progress Note Date of Service Oct 29, 2017. Progress Note time - 1999 Pt felt better throughout the day with modestly improved appetite & improved abd pain. Cultures (urine/blood) still pending. Vitals stable. exam - gen - laying flat comfortably mouth - MMM heart - RRR lungs - CTA b/l abd - soft, minimal suprapubic tenderness, ND, BS+; no CVA tenderness right nephrostomy tube draining urine ext - no edema A/P: solano-catheter/complicated UTI; possibly mild sepsis 2nd to same hyponatremia 2nd to volume depletion acute kidney injury 2nd to volume depletion bladder cancer s/p chemotherapy this past Monday right sided nephrostomy tube status hypomagnesemia - severe cont current IV abx follow cx's obtain records from [facility] [place] daughter updated by phone replace mag labs in AM Bessie CUNNINGHAM MD
[2017-10-29] MEDS: ATORVASTATIN 40 MG TAB PO SCH (20:37)
[2017-10-29] MEDS: TAMSULOSIN HCL 0.4 MG CAP PO SCH (20:39)
[2017-10-30] VITALS (9 sets, daily range): BP systolic 92–121; BP diastolic 60–71; PULSE 62–78; TEMP 36.7–37; O2SAT 96–99
[2017-10-30] MEDS: INSULIN ASPART 100 UNITS/ML 3 ML PEN SC SCH ×4 (01:06→18:00)
[2017-10-30] MEDS: HYDROmorphone INJ 1 MG/ML SYR IV PRN ×5 (02:35→19:24)
[2017-10-30] MEDS: CEFEPIME IV 1,000 MG in SYRINGE 0 ML IV SCH ×3 (05:19→21:51)
[2017-10-30 06:00] LABS: HEMATOCRIT 24.3 % (42-52); HEMOGLOBIN 8.2 g/dL (14.0-18.0); MEAN CELL VOLUME 86.8 fL (80-100); MEAN CORPUSCULAR HEMOGLOBIN 29.3 pg (25-34); MEAN CORPUSCULAR HGB CONC 33.7 g/dl (32-36); RED CELL DISTRIBUTION WIDTH CV 14.8 % (11.5-14.5); RED CELL DISTRIBUTION WIDTH SD 46.3 fL (36.4-46.3); WHITE BLOOD COUNT 4.35 K/uL (4.8-10.8)
[2017-10-30 06:18] LABS: CREATININE 1.22 mg/dl (0.60-1.40); POTASSIUM 4.4 mmol/L (3.5-5.1)
[2017-10-30 06:49] LABS: MEAN PLATELET VOLUME 8.7 fL (7.4-10.4); PLATELET COUNT 85 K/uL (130-400)
[2017-10-30] MEDS: VANCOMYCIN HCL 125 MG/2.5ML SOLN PO SCH ×3 (09:09→16:55)
[2017-10-30] MEDS: RASPBERRY SYRUP 5 ML UDP PO SCH ×3 (09:09→16:55)
[2017-10-30] MEDS: MAGNESIUM SULFATE 1GM / D5W 1 GM in PREMIXED IN D5W 100 ML IV SCH ×2 (09:09→11:09)
[2017-10-30] MEDS: PSYLLIUM 58.6% PWD PACK S\\F PO SCH ×3 (09:12→16:56)
[2017-10-30] MEDS: CITALOPRAM 20 MG TAB PO SCH (09:13)
[2017-10-30] MEDS: ASPIRIN 81 MG ECTAB PO SCH (09:14)
[2017-10-30] MEDS: GABAPENTIN 600 MG TAB PO SCH ×2 (09:14→21:54)
[2017-10-30] MEDS: METOPROLOL TARTRATE 25 MG TAB PO SCH ×2 (09:15→21:55)
[2017-10-30] MEDS: DOCUSATE SODIUM 100 MG CAP PO SCH ×2 (09:15→21:54)
[2017-10-30] MEDS: CHECK FENTANYL PATCH PLACEMENT SCH ×2 (09:16→16:56)
[2017-10-30] MEDS: FLUCONAZOLE 100 MG TAB PO SCH (09:16)
--- NOTE | 2017-10-30 09:18 | Clinical Documentation Query ---
CLINICAL DOCUMENTATION QUERY Dr. CUNNINGHAM, In your clinical opinion is this patient being managed for: (x ) chemotherapy induced pancytopenia ( ) Not Agree ( ) Other explanation of clinical findings (Please Explain) ( ) Unable to determine (Please Define) ( ) Need to Discuss The medical record reflects the following clinical findings, treatment, and risk factors. Clinical Indicators: 62 yo male presenting with UTI. Initial CBC did not reflect pancytopenia, however subsequent labs: WBC 4.35, Hgb 8.2, Hct 24.3, plts 85. Per ER notation, pt finished his most recent chemo treatment 5 days prior to presentation. Treatment: monitor CBC Risk Factors: bladder neoplasm with chemotherapy Please clarify and document your clinical opinion in the progress notes and discharge summary. Terms such as "probable", "suspected", "likely", "questionable", "possible", or "still to be ruled out" are acceptable. IF IN AGREEMENT, YOU MUST DOCUMENT ABOVE DIAGNOSTIC STATEMENT IN DAILY PROGRESS NOTES AND DISCHARGE SUMMARY. This document is not part of the patient's record. Thank You, Nickie Reardon RN [phone]
--- NOTE | 2017-10-30 10:38 | Progress Note ---
Subjective Date of Service: Oct 30, 2017. Subjective Pt evaluation today including: conversation w/ patient, chart review, lab review Voiding: solano catheter in place (patent, draining clear, yellow urine ) Pt denies pain this morning. States his PCN tube was not draining well until this morning, and he feels it needs flushed. PCN and solano draining clear, yellow urine. UC&S growing gram negative bacilli. Problem List Medical Problems: (1) Abdominal pain Status: Acute (2) Acute hyponatremia Status: Acute (3) Bladder neoplasm Status: Acute (4) Constipation Status: Acute (5) Fungal infection Status: Acute (6) Generalized weakness Status: Acute (7) Hypomagnesemia Status: Acute (8) Intractable abdominal pain Status: Acute (9) Urinary tract infection associated with nephrostomy catheter Status: Acute (10) UTI (urinary tract infection) Status: Acute Review of Systems Constitutional: No fever, No chills Respiratory: No shortness of breath Cardiac: No chest pain Abdomen: No pain, No nausea, No vomiting Male : No hematuria Heme: No abnormal bleeding/bruising Objective Vital Signs Date Time Temp Pulse Resp B/P (MAP) Pulse Ox O2 Delivery O2 Flow Rate FiO2 10/30/17 07:39 36.7 66 18 105/71 (82) 96 Room Air 10/30/17 04:00 36.9 78 20 121/65 (83) 98 2.0 10/30/17 01:26 36.7 64 20 92/60 (71) 98 2.0 10/30/17 00:00 Nasal Cannula 2.0 10/29/17 20:00 Nasal Cannula 2.0 10/29/17 20:00 37.0 72 20 100/60 (73) 99 2.0 10/29/17 16:00 98 Room Air 10/29/17 15:12 36.9 64 18 110/70 (83) 98 10/29/17 11:14 36.6 65 18 99/64 (76) 96 Physical Exam General Appearance: no apparent distress Eyes: normal inspection ENT: hearing grossly normal Neck: no JVD Respiratory/Chest: no respiratory distress, no accessory muscle use Cardiovascular: no JVD Extremities: normal inspection Neurologic/Psychiatric: alert, normal mood/affect, oriented x 3 Skin: normal color Laboratory Results Last 24 Hours Test 10/29/17 11:33 10/29/17 16:22 10/29/17 19:58 10/30/17 00:36 Bedside Glucose 116 mg/dl 118 mg/dl 127 mg/dl 115 mg/dl Test 10/30/17 05:26 10/30/17 05:55 10/30/17 08:09 White Blood Count 4.35 K/uL Red Blood Count 2.80 M/uL Hemoglobin 8.2 g/dL Hematocrit 24.3 % Mean Corpuscular Volume 86.8 fL Mean Corpuscular Hemoglobin 29.3 pg Mean Corpuscular Hemoglobin Concent 33.7 g/dl RDW Standard Deviation 46.3 fL RDW Coefficient of Variation 14.8 % Platelet Count 85 K/uL Mean Platelet Volume 8.7 fL Sodium Level 134 mmol/L Potassium Level 4.4 mmol/L Chloride Level 103 mmol/L Carbon Dioxide Level 25 mmol/L Anion Gap 7.0 mmol/L Blood Urea Nitrogen 24 mg/dl Creatinine 1.22 mg/dl Est Creatinine Clear Calc Drug Dose 68.0 ml/min Estimated GFR () 72.7 Estimated GFR (Non- 62.7 BUN/Creatinine Ratio 20.0 Random Glucose 92 mg/dl Calcium Level 8.0 mg/dl Magnesium Level 1.6 mg/dl Bedside Glucose 99 mg/dl 116 mg/dl Assessment and Plan A/P: Bladder cancer, UTI AFVSS. Continue cefepime pending culture sensitivities. Would then transition to 10 days of oral abx. Will order PCN flushes qshift and PRN. Continue to plan for cystectomy in November as scheduled. Will repeat his CT of the chest/thorax and CT of the abd/pelvis while inpatient as he is schedule for outpatient f/u with Dr. Vaca next week.
[2017-10-30] MEDS ORDERED: OPTIRAY 320 IV PRN (11:15)
[2017-10-30] MEDS: GABAPENTIN 300 MG CAP PO SCH (12:11)
--- NOTE | 2017-10-30 14:41 | DIAGNOSTIC IMAGING REPORT ---
CT SCAN OF THE CHEST, ABDOMEN, AND PELVIS WITH IV CONTRAST CLINICAL HISTORY: Bladder cancer. COMPARISON STUDY: Chest CT dated 08/29/2017. Abdominal CT dated 10/12/2017 and 08/22/2017. TECHNIQUE: Following the IV administration of 93 of Optiray 320, CT scan of the chest, abdomen, and pelvis was performed from the thoracic inlet to the proximal femora. Images are reviewed in the axial, sagittal, and coronal planes. IV contrast was administered without complication. Automated dose control exposure was utilized. A dose lowering technique was utilized adhering to the principles of ALARA. CT DOSE: 1414.29 mGycm FINDINGS: CHEST: Thyroid: Imaged portions of the thyroid gland are normal in size and attenuation. Thoracic aorta: There is mild atherosclerotic calcification of the thoracic aorta, which is normal in caliber and demonstrates standard 3-vessel arch anatomy. No dissection is seen. A left subclavian central venous infusion port is in place. Pulmonary vasculature: The pulmonary trunk is normal in caliber. There are no filling defects identified in the central pulmonary vessels to indicate pulmonary embolus. Note that this examination was not protocoled for evaluation of the pulmonary arteries. Heart: The heart is normal in size and configuration, and without pericardial effusion. The coronary arteries are densely calcified. Lungs and pleural spaces: An impacted bronchus is seen at the left lung base. No airspace consolidation or pleural effusion is identified. A 4 mm pleural-based nodule in the right middle lobe lung minor fissure seen on image #149 is unchanged. No new or concerning pulmonary nodule is seen. A small calcified granulomas identified in the anterior right middle lobe. The trachea and central airways are clear. Mediastinum: There are scattered subcentimeter mediastinal lymph nodes. These are not pathologically enlarged by size criteria. Halina: Clear. Axillae: There is no axillary lymphadenopathy. Bony thorax: No lytic or blastic lesions are identified. ABDOMEN AND PELVIS: Liver: The contrast-enhanced liver is normal in size, contour, and attenuation. There is no intrahepatic or ductal dilatation. The hepatic veins and portal veins are patent. Gallbladder: Unremarkable. Spleen: The spleen is enlarged measuring 16.5 cm in length. Pancreas: Unremarkable. Adrenal glands: Unremarkable. Kidneys: The contrast enhanced kidneys demonstrate mild cortical atrophy and are without hydronephrosis. A percutaneous nephrostomy tube and ureteral stent are present on the right. There is heterogeneous enhancement of the right kidney with associated perinephric stranding. Urothelial thickening enhancement are identified in the right renal pelvis and along the course of the ureter. The left kidney enhances homogeneously. There are punctate nonobstructing calculi present within both kidneys. 1.3 cm cyst is identified in the right lower pole. Numerous additional subcentimeter cortical hypodensities also likely represent cysts but are too small for definitive characterization. A small focus of gas is present within the right renal collecting system. There is mild fullness of the distal left ureter just above the bladder. Abdominal vasculature: The abdominal aorta is normal in course and caliber noting moderate atherosclerotic calcification. Stomach and bowel: There is a tiny hiatal hernia. The stomach and duodenum are normal in configuration. There is moderate sigmoid diverticulosis without CT evidence of acute diverticulitis. Moderate colonic fecal retention is observed. No bowel obstruction is seen. The appendix is well-visualized and normal. Peritoneum: There is no intraperitoneal free air or abdominal ascites. Lymphadenopathy: None. Pelvic viscera: The bladder is partially decompressed around a Hernandez catheter. The bladder wall is markedly thickened (asymmetrically greatest on the right), heterogeneous, and trabeculated. There is pericystic inflammatory stranding. Gas is present within the bladder lumen, and the bladder also contains the distal end of a right ureteral stent. The prostate and seminal vesicles are normal as imaged. Skeletal structures: No lytic or blastic lesions are seen. IMPRESSION: 1. The bladder is partially decompressed around a Hernandez catheter. The bladder wall is asymmetrically thickened, heterogeneous, and hyperemic. There is associated pericystic inflammatory stranding. Some of this is likely related to the reported history of bladder cancer. Correlate clinically for evidence of superimposed cystitis, either on an infectious basis or related to radiation treatment. 2. A percutaneous nephrostomy tube and a ureteral stent are present on the right. There is no hydronephrosis. 3. There is heterogeneous perfusion of the right kidney, a small focus of gas within the right renal collecting system, urothelial thickening and enhancement involving the right renal pelvis and the right ureter, and right-sided perinephric stranding. Although these findings could be related to the presence of indwelling catheters, correlate with urinalysis for evidence of superimposed infection. 4. There is no convincing evidence of metastatic disease in the chest, abdomen, or pelvis. 5. Moderate sigmoid diverticulosis without CT evidence of acute diverticulitis. 6. Splenomegaly. 7. There is no airspace consolidation or pleural effusion. 8. Small bilateral nonobstructing renal calculi. 9. Additional findings as above. Electronically signed by: Tino Pandey M.D. 10/30/2017 2:40 PM Dictated Date/Time: 10/30/2017 2:24 PM
[2017-10-30] MEDS: ATORVASTATIN 40 MG TAB PO SCH (21:53)
[2017-10-30] MEDS: TAMSULOSIN HCL 0.4 MG CAP PO SCH (21:55)
[2017-10-31] VITALS (8 sets, daily range): BP systolic 88–102; BP diastolic 54–68; PULSE 57–75; TEMP 36.3–36.9; O2SAT 96–99
[2017-10-31] MEDS: INSULIN ASPART 100 UNITS/ML 3 ML PEN SC SCH ×5 (03:29→20:28)
[2017-10-31] MEDS: CHECK FENTANYL PATCH PLACEMENT SCH ×3 (03:29→15:27)
[2017-10-31] MEDS: CEFEPIME IV 1,000 MG in SYRINGE 0 ML IV SCH (03:30)
[2017-10-31] MEDS: HYDROmorphone INJ 1 MG/ML SYR IV PRN ×4 (03:31→18:19)
--- NOTE | 2017-10-31 05:50 | Progress Note ---
Subjective Date of Service: late entry for visit on Oct 30, 2017. Subjective Pt evaluation today including: conversation w/ patient, conversation w/ family (daughter by phone), physical exam, chart review, lab review, review of studies (CT chest/abd/pelvis) Pain: mild suprapubic pain PO Intake: improved Voiding: solano catheter in place feels much better today more energy eating better pain better no new complaints ambulating in room; declines formal PT evaluation Problem List Medical Problems: (1) Abdominal pain Status: Acute (2) Acute hyponatremia Status: Acute (3) Bladder neoplasm Status: Acute (4) Constipation Status: Acute (5) Fungal infection Status: Acute (6) Generalized weakness Status: Acute (7) Hypomagnesemia Status: Acute (8) Intractable abdominal pain Status: Acute (9) Urinary tract infection associated with nephrostomy catheter Status: Acute (10) UTI (urinary tract infection) Status: Acute Review of Systems Constitutional: No fever Respiratory: No cough, No shortness of breath Cardiac: No chest pain Abdomen: No nausea, No vomiting, No diarrhea Objective Vital Signs Date Time Temp Pulse Resp B/P (MAP) Pulse Ox O2 Delivery O2 Flow Rate FiO2 10/31/17 03:35 36.8 70 18 88/56 (67) 99 Room Air 10/31/17 00:00 Room Air 10/30/17 23:00 36.9 68 18 97/62 (74) 99 Room Air 10/30/17 20:56 37.0 67 18 103/69 (80) 98 Room Air 10/30/17 20:00 Room Air 10/30/17 16:24 36.8 62 17 103/69 (80) 98 Room Air 10/30/17 16:00 98 Room Air 10/30/17 11:17 36.9 64 20 96/61 (73) 98 Room Air 10/30/17 08:00 96 Room Air 10/30/17 07:39 36.7 66 18 105/71 (82) 96 Room Air Physical Exam General Appearance: no apparent distress, + pertinent finding (looks much better today) ENT: pharynx normal Neck: no JVD Respiratory/Chest: lungs clear, no respiratory distress, no accessory muscle use Cardiovascular: regular rate, rhythm, no gallop, no JVD, no murmur Abdomen: normal bowel sounds, non tender, soft, no organomegaly, + pertinent finding (nephrostomy tube in place on right) Extremities: no pedal edema Neurologic/Psychiatric: alert, oriented x 3 Skin: + pallor Laboratory Results Last 24 Hours Test 10/30/17 05:55 10/30/17 08:09 10/30/17 11:50 10/30/17 17:05 Bedside Glucose 99 mg/dl 116 mg/dl 151 mg/dl 132 mg/dl Test 10/30/17 20:06 Bedside Glucose 117 mg/dl Assessment and Plan 62 yo male with: 1. GNR UTI - complicated/solano-catheter associated - continue cefepime, await culture. Blood cx's negative. Clinically improved. 2. hyponatremia - nearly resolved with IV fluids; was 2nd to volume depletion. 3. acute kidney injury - 2nd to #1, #2 - resolved. 4. hypomagnesemia - ongoing - replace 2 grams IV mag sulfate; repeat mag level am. 5. urothelial cancer - management per urology and heme/onc - s/p chemo 1 week ago. CTs of chest/abd/pelvis today without metastatic disease. 6. right-sided ureteral obstruction due to #5 - s/p nephrostomy tube at [facility] last month. 7. ?fungemia or fungal UTI - awaiting records from [facility] - no evidence of such while here; stop diflucan. 8. recent c diff colitis at [facility] - resolved; no stools this entire stay; stop vancomycin orally. 9. FEN - fluids stopped, replace mag, BMP/mag in am. Eating is better. 10. DM II - controlled. 11. CAD - stable; cont asa/statin/BB. 12. HTN - controlled; hold MICHAEL since BPs are low. 13. chemotherapy induced pancytopenia - daily CBC. 14. DVT proph - depending no platelet count would start chemical means in AM due to high risk of DVT. progressing nicely home next 1-2 days Continued [facility] stay due to: multiple IV medications needed Discharge planning: home
[2017-10-31 07:18] LABS: HEMATOCRIT 24.9 % (42-52); HEMOGLOBIN 8.5 g/dL (14.0-18.0); MEAN CELL VOLUME 86.2 fL (80-100); MEAN CORPUSCULAR HEMOGLOBIN 29.4 pg (25-34); MEAN CORPUSCULAR HGB CONC 34.1 g/dl (32-36); RED CELL DISTRIBUTION WIDTH CV 14.6 % (11.5-14.5); RED CELL DISTRIBUTION WIDTH SD 45.3 fL (36.4-46.3); WHITE BLOOD COUNT 2.69 K/uL (4.8-10.8)
[2017-10-31 07:19] LABS: MEAN PLATELET VOLUME 9.3 fL (7.4-10.4); PLATELET COUNT 73 K/uL (130-400)
[2017-10-31] MEDS ORDERED: GLUCOSE 10 TABS/TUBE PO PRN (07:45)
[2017-10-31] MEDS ORDERED: DEXTROSE 50% 50 ML SYR IV PRN (07:45)
[2017-10-31] MEDS ORDERED: GLUCAGON FOR INJ 1 MG VIAL SQ PRN (07:45)
[2017-10-31] MEDS ORDERED: GLUCOSE 40% GEL 15 GM TUBE PO PRN (07:45)
[2017-10-31 07:58] LABS: CALCIUM 8.5 mg/dl (8.5-10.1); CREATININE 1.15 mg/dl (0.60-1.40)
[2017-10-31 08:05] LABS: BASO % 0.4 %; BASO ABS # 0.01 K/uL (0-0.2); EOS % 1.1 %; EOS ABS # 0.03 K/uL (0-0.5); IG# 0.03 K/uL (0.00-0.02); LYMPH % 23.8 %; LYMPH ABS # 0.64 K/uL (1.2-3.4); MONO ABS # 0.35 K/uL (0.11-0.59); NEUT % 60.6 %; NEUT ABS # 1.63 K/uL (1.4-6.5)
--- NOTE | 2017-10-31 08:50 | Progress Note ---
Subjective Date of Service: Oct 31, 2017. Subjective Pt evaluation today including: conversation w/ patient, chart review Voiding: solano catheter in place (patent, draining clear, yellow urine ) 62 yo male with bladder cancer. Finished chemo. Scheduled for cystectomy in early November. Solano and PCN patent and draining clear, yellow urine this morning. Repeat chest and abd/pelvis CT yesterday shows no evidence for metastatic disease. Nutrition and ostomy consult have been placed for pre-op eval. UC&S growing reyes sensitive Klebsiella. Pt c/o persistent bladder discomfort this morning, but otherwise feels well. Denies constipation. States his goal until surgery is to remain out of the hospital. Problem List Medical Problems: (1) Abdominal pain Status: Acute (2) Acute hyponatremia Status: Acute (3) Bladder neoplasm Status: Acute (4) Constipation Status: Acute (5) Fungal infection Status: Acute (6) Generalized weakness Status: Acute (7) Hypomagnesemia Status: Acute (8) Intractable abdominal pain Status: Acute (9) Urinary tract infection associated with nephrostomy catheter Status: Acute (10) UTI (urinary tract infection) Status: Acute Review of Systems Constitutional: No fever, No chills Respiratory: No shortness of breath Cardiac: No chest pain Abdomen: + pain (suprapubic/bladder pain ), No nausea, No vomiting Male : No hematuria Heme: No abnormal bleeding/bruising Objective Vital Signs Date Time Temp Pulse Resp B/P (MAP) Pulse Ox O2 Delivery O2 Flow Rate FiO2 10/31/17 07:24 36.3 68 18 98/68 (78) 96 Room Air 10/31/17 03:35 36.8 70 18 88/56 (67) 99 Room Air 10/31/17 00:00 Room Air 10/30/17 23:00 36.9 68 18 97/62 (74) 99 Room Air 10/30/17 20:56 37.0 67 18 103/69 (80) 98 Room Air 10/30/17 20:00 Room Air 10/30/17 16:24 36.8 62 17 103/69 (80) 98 Room Air 10/30/17 16:00 98 Room Air 10/30/17 11:17 36.9 64 20 96/61 (73) 98 Room Air Physical Exam General Appearance: no apparent distress Eyes: normal inspection ENT: hearing grossly normal Neck: no JVD Respiratory/Chest: no respiratory distress, no accessory muscle use Cardiovascular: no JVD Extremities: normal inspection Neurologic/Psychiatric: alert, normal mood/affect, oriented x 3 Skin: normal color Laboratory Results Last 24 Hours Test 10/30/17 11:50 10/30/17 17:05 10/30/17 20:06 10/31/17 06:18 Bedside Glucose 151 mg/dl 132 mg/dl 117 mg/dl White Blood Count 2.69 K/uL Red Blood Count 2.89 M/uL Hemoglobin 8.5 g/dL Hematocrit 24.9 % Mean Corpuscular Volume 86.2 fL Mean Corpuscular Hemoglobin 29.4 pg Mean Corpuscular Hemoglobin Concent 34.1 g/dl Platelet Count 73 K/uL Mean Platelet Volume 9.3 fL Neutrophils (%) (Auto) 60.6 % Lymphocytes (%) (Auto) 23.8 % Monocytes (%) (Auto) 13.0 % Eosinophils (%) (Auto) 1.1 % Basophils (%) (Auto) 0.4 % Neutrophils # (Auto) 1.63 K/uL Lymphocytes # (Auto) 0.64 K/uL Monocytes # (Auto) 0.35 K/uL Eosinophils # (Auto) 0.03 K/uL Basophils # (Auto) 0.01 K/uL RDW Standard Deviation 45.3 fL RDW Coefficient of Variation 14.6 % Immature Granulocyte % (Auto) 1.1 % Immature Granulocyte # (Auto) 0.03 K/uL Toxic Granulation 2+ Dohle Bodies 2+ Sodium Level 133 mmol/L Potassium Level 4.0 mmol/L Chloride Level 101 mmol/L Carbon Dioxide Level 28 mmol/L Anion Gap 5.0 mmol/L Blood Urea Nitrogen 23 mg/dl Creatinine 1.15 mg/dl Est Creatinine Clear Calc Drug Dose 72.2 ml/min Estimated GFR () 78.1 Estimated GFR (Non- 67.4 BUN/Creatinine Ratio 20.3 Random Glucose 95 mg/dl Calcium Level 8.5 mg/dl Magnesium Level 1.7 mg/dl Thyroid Stimulating Hormone (TSH) 1.060 uIu/ml Test 10/31/17 07:32 Bedside Glucose 115 mg/dl Assessment and Plan A/P: Bladder cancer, UTI AFVSS. UC&S growing Klebsiella. Would recommend 14 days of Cipro or Bactrim at this time. Would then consider transitioning to prophylactic abx such as nightly trimethoprim or nitrofurantoin to cover him until his surgery. Continue PCN flushes PRN. Continue to plan for cystectomy in November as scheduled. He is scheduled to f/u with Dr. Vaca in the office on 11-07. Will keep appt as scheduled. Will initiate nutrition and ostomy pre-op consults while inpatient. Continue oxybutynin and Pyridium for bladder discomfort. Continue bowel regimen as constipation has been a major issue for him in the past. Primary goal at this time is to keep the pt healthy and out of the hospital until his scheduled cystectomy. No further management at this time. Recall PRN issues. Thanks for allowing us to participate in this pt's care. Continued [facility] stay due to: multiple IV medications needed Discharge planning: home
[2017-10-31] MEDS ORDERED: MAGNESIUM SULFATE 1GM / D5W 1 GM in PREMIXED IN D5W 100 ML IV SCH (09:00)
[2017-10-31] MEDS: BOOST GLUCOSE CONTROL PO SCH ×2 (09:04→17:00)
[2017-10-31] MEDS: METOPROLOL TARTRATE 25 MG TAB PO SCH (09:14)
[2017-10-31] MEDS: CIPROFLOXACIN 500 MG TAB PO SCH ×2 (09:14→20:27)
[2017-10-31] MEDS: CITALOPRAM 20 MG TAB PO SCH (09:15)
[2017-10-31] MEDS: ASPIRIN 81 MG ECTAB PO SCH (09:15)
[2017-10-31] MEDS: DOCUSATE SODIUM 100 MG CAP PO SCH ×2 (09:15→20:26)
[2017-10-31] MEDS: GABAPENTIN 600 MG TAB PO SCH ×2 (09:16→20:26)
[2017-10-31] MEDS: PSYLLIUM 58.6% PWD PACK S\\F PO SCH ×3 (09:16→17:00)
[2017-10-31] MEDS: OXYBUTYNIN CHLORIDE 5 MG TAB PO PRN (09:18)
[2017-10-31] MEDS ORDERED: HYDROmorphone INJ 0.5 MG/0.5 ML SYR ONE (10:12)
[2017-10-31] MEDS ORDERED: KETOROLAC TROMETHAMINE 30 MG/ML VIAL ONE (10:13)
--- NOTE | 2017-10-31 10:31 | Medical Consult ---
Consultation Date of Consultation: Oct 31, 2017. Attending Physician: Balwinder Marte MD Reason for Consultation: Recurrent urinary tract infection, restricted antibiotics History of Present Illness 62-year-old male with history of bladder cancer status post right nephrostomy for obstruction, admitted recently to [facility] with sepsis and urinary tract infection with Klebsiella, course complicated by fungal infection treated with fluconazole and C difficile colitis treated with vancomycin. He was readmitted now with several days of progressively worsening flank pain, fever and chills, with cultures again growing Klebsiella pneumoniae. Patient currently on ciprofloxacin and has shown slow clinical improvement. However this morning had episode of sweats with transient left flank pain. Has been tolerating his ciprofloxacin without apparent difficulty. Has been afebrile. Right flank pain on admission rated 9/10 in intensity. Past Medical/Surgical History Medical Problems: (1) Abdominal pain Status: Acute (2) Acute hyponatremia Status: Acute (3) Bladder neoplasm Status: Acute (4) Constipation Status: Acute (5) Fungal infection Status: Acute (6) Generalized weakness Status: Acute (7) Hypomagnesemia Status: Acute (8) Intractable abdominal pain Status: Acute (9) Urinary tract infection associated with nephrostomy catheter Status: Acute (10) UTI (urinary tract infection) Status: Acute Family History Cancer Diabetes mellitus Social History Smoking Status: Current Every Day Smoker Drug Use: none Marital Status: Housing Status: lives with significant other Occupation Status: retired Allergies Coded Allergies: No Known Allergies (Unverified , 10/12/17) Current Inpatient Medications Current Inpatient Medications Medications (Trade) Dose Ordered Sig/Young Route Start Time Stop Time Status Last Admin Dose Admin Hydromorphone HCl (Dilaudid Inj) 1 mg Q3H PRN IV 10/29/17 04:45 11/12/17 04:44 10/31/17 09:00 1 MG Aspirin (Ecotrin Tab) 81 mg QAM PO 10/29/17 08:00 11/28/17 08:59 10/31/17 09:15 81 MG Atorvastatin Calcium (Lipitor Tab) 80 mg QPM PO 10/29/17 21:00 11/28/17 20:59 10/30/17 21:53 80 MG Docusate Sodium (coLACE CAP) 100 mg BID PO 10/29/17 08:00 11/28/17 08:59 10/31/17 09:15 100 MG Fentanyl (Duragesic Patch) 75 mcg Q72H TD 11/01/17 08:00 11/15/17 07:59 Gabapentin (Neurontin Cap) 300 mg DAILY@1200 PO 10/29/17 12:00 11/28/17 11:59 10/30/17 12:11 300 MG Gabapentin (Neurontin Tab) 600 mg BID PO 10/29/17 08:00 11/28/17 07:59 10/31/17 09:16 600 MG Lactulose (Chronulac Syrup) 30 gm DAILY PRN PO 10/29/17 08:00 11/28/17 07:59 Metoprolol Tartrate (Lopressor Tab) 25 mg BID PO 10/29/17 08:00 11/28/17 08:59 10/30/17 21:55 25 MG Oxybutynin Chloride (Ditropan Tab) 5 mg TID PRN PO 10/29/17 04:45 11/28/17 04:44 10/31/17 09:18 5 MG Oxycodone/ Acetaminophen (Percocet 10-325MG Tab) 1 tab QID PRN PO 10/29/17 04:45 11/12/17 04:44 10/29/17 09:52 1 TAB Phenazopyridine HCl (Pyridium Tab) 200 mg TID PRN PO 10/29/17 04:45 11/28/17 04:44 10/29/17 09:42 200 MG Psyllium Hydrophilic Mucilloid (Metamucil Powder) 1 pkt TIDM PO 10/29/17 08:00 11/28/17 07:59 10/31/17 09:16 1 PKT Tamsulosin HCl (Flomax Cap) 0.4 mg QPM PO 10/29/17 21:00 11/28/17 20:59 10/30/17 21:55 0.4 MG Albuterol (Ventolin Hfa Inhaler) 2 puffs DAILY PRN INH 10/29/17 04:45 11/28/17 04:44 Citalopram Hydrobromide (celeXA TAB) 10 mg QAM PO 10/29/17 08:00 11/28/17 08:59 10/31/17 09:15 10 MG Insulin Aspart (novoLOG ASPART) SLIDING SCALE G... Q6 SC 10/29/17 12:00 11/28/17 11:59 Acetaminophen (Tylenol Tab) 650 mg Q4H PRN PO 10/29/17 04:45 11/28/17 04:44 Al Hydrox/Mg Hydrox/Simethicone (Maalox Max Susp) 15 ml Q4H PRN PO 10/29/17 04:45 11/28/17 04:44 Magnesium Hydroxide (Milk Of Magnesia Susp) 30 ml Q6H PRN PO 10/29/17 04:45 11/28/17 04:44 Polyethylene (Miralax Powder Packet) 17 gm DAILY PRN PO 10/29/17 04:45 11/28/17 04:44 Zolpidem Tartrate (Ambien Tab) 5 mg HSZ PRN PO 10/29/17 04:45 11/28/17 04:44 Ondansetron HCl (Zofran Inj) 4 mg Q6H PRN IV 10/29/17 04:45 11/28/17 04:44 10/29/17 07:31 4 MG Miscellaneous (Fentanyl Patch Remove & Waste) 1 ea Q3D N/A 11/01/17 07:59 12/01/17 07:58 Miscellaneous Information (Check Fentanyl Patch Placement) 1 ea QS N/A 10/29/17 08:00 11/28/17 07:59 10/31/17 09:17 1 EA Heparin Sodium (Porcine) (Heparin 100 Unit/ml 5ml Flush) 5 ml PRN PRN IV 10/30/17 06:45 11/29/17 06:44 10/30/17 12:50 5 ML Ioversol (Optiray 320) 125 ml UD PRN IV 10/30/17 11:15 11/03/17 11:14 Enteral Nutritional Formula (Boost Glucose Control) 1 can BIDM PO 10/31/17 08:00 11/30/17 07:59 Ciprofloxacin (Cipro Tab) 500 mg BID PO 10/31/17 08:00 11/10/17 07:59 10/31/17 09:14 500 MG Glucose (Glucose 40% Gel) 15-30 GRAMS 15 GRAMS... UD PRN PO 10/31/17 07:45 11/30/17 07:44 Glucose (Glucose Chew Tab) 4-8 Tablets 4 Tabl... UD PRN PO 10/31/17 07:45 11/30/17 07:44 Dextrose (Dextrose 50% 50ML Syringe) 25-50ML OF 50% DW IV FOR... UD PRN IV 10/31/17 07:45 11/30/17 07:44 Glucagon (Glucagon Inj) 1 mg UD PRN SQ 10/31/17 07:45 11/30/17 07:44 Hydromorphone HCl (Dilaudid Inj) 0.5 mg NOW STAT IV 10/31/17 10:07 10/31/17 10:08 UNV Ketorolac Tromethamine (Toradol Inj) 30 mg NOW STAT IV 10/31/17 10:07 10/31/17 10:08 UNV Sodium Chloride 1,000 ml @ 0 mls/hr Q0M IV 10/31/17 10:15 11/30/17 10:14 UNV Review of Systems Constitutional: + fever, + chills Eyes: No problem reported ENT: No problem reported Respiratory: No problem reported Cardiovascular: No problem reported Abdomen: + pain Musculoskeletal: No problem reported Genitourinary - Male: + problem reported (See HPI) Neurologic: No problem reported Psychiatric: No problem reported Endocrine: No problem reported Hematologic / Lymphatic: No problem reported Integumentary: No problem reported Allergic / Immunologic: No problem reported Physical Exam Date Time Temp Pulse Resp B/P (MAP) Pulse Ox O2 Delivery O2 Flow Rate FiO2 10/31/17 09:53 36.7 76 88/56 (67) 10/31/17 07:24 36.3 68 18 98/68 (78) 96 Room Air 10/31/17 03:35 36.8 70 18 88/56 (67) 99 Room Air 10/31/17 00:00 Room Air 10/30/17 23:00 36.9 68 18 97/62 (74) 99 Room Air 10/30/17 20:56 37.0 67 18 103/69 (80) 98 Room Air 10/30/17 20:00 Room Air 10/30/17 16:24 36.8 62 17 103/69 (80) 98 Room Air 10/30/17 16:00 98 Room Air 10/30/17 11:17 36.9 64 20 96/61 (73) 98 Room Air General Appearance: WD/WN, no apparent distress Head: normocephalic, atraumatic Eyes: normal inspection, EOMI, sclerae normal ENT: normal ENT inspection, hearing grossly normal, pharynx normal Neck: supple, no adenopathy, thyroid normal, trachea midline Respiratory/Chest: chest non-tender, lungs clear, normal breath sounds, no respiratory distress Cardiovascular: regular rate, rhythm, no gallop, no murmur Abdomen/GI: normal bowel sounds, soft, no organomegaly, + tenderness (Mild suprapubic) Genitourinary - Male: + pertinent finding (Right nephrostomy tube, site clean) Back: normal inspection, + left CVA tenderness Extremities/Musculoskelatal: normal inspection, no calf tenderness, normal capillary refill, non-tender Neurologic/Psych: alert, normal mood/affect, oriented x 3 Skin: normal color, warm/dry, no rash Lymphatic: no adenopathy Laboratory Results --- RUN DATE: 10/31/17 [facility] LAB PAGE 1 RUN TIME: 0653 Specimen Inquiry PATIENT: LIZET JONES [facility] #: [id number] LOC: [facility] # : [id number] AGE/SX: 62/M ROOM: [facility] REG : 10/29/[address]: Balwinder Marte MD : 1955 BED: 1 DIS : STATUS: ADM IN TLOC: SPEC #: [id number] BETZAIDA: 10/29/17 STATUS: RES REQ #: [id number] RECD: 10/29/17 [facility] DR: Lizet Rowe M.D. SOURCE: URINE CATH ENTR: 10/29/17 [facility] DR: Vasyl Westbrook D.OMark SPDES: ORDERED: CULTURE UR CATH Procedure Result Verified Site URINE CULTURE Preliminary 10/31/17 Organism 1 KLEBSIELLA PNEUMONIAE COLONY COUNT >100,000 CFU/ml SENS SENSITIVITY TO FOLLOW 1. KLEBSIELLA PNEUMONIAE Target Route Dose RX AB Cost M.I.C. IQ ------ ----- ------ -- ------ -------- - ------ TRIMET/SULFA S <=2/38 AMPICILLIN/SUL S <=8/4 CEFAZOLIN S <=8 CEFOXITIN S <=8 CEFOTAXIME S <=2 CEFTRIAXONE S <=1 CEFEPIME S <=4 CEFUROXIME S 8 IMIPENEM S <=1 GENTAMICIN S <=4 TOBRAMYCIN S <=4 AMIKACIN S <=16 CIPROFLOXACIN S <=1 LEVOFLOXACIN S <=2 ERTAPENEM S <=1 NITROFURANTOIN S <=32 PIP/TAZO S <=16 S = SENSITIVE I = INTERMEDIATE R = RESISTANT END OF REPORT Last 24 Hours Test 10/30/17 11:50 10/30/17 17:05 10/30/17 20:06 10/31/17 06:18 Bedside Glucose 151 mg/dl 132 mg/dl 117 mg/dl White Blood Count 2.69 K/uL Red Blood Count 2.89 M/uL Hemoglobin 8.5 g/dL Hematocrit 24.9 % Mean Corpuscular Volume 86.2 fL Mean Corpuscular Hemoglobin 29.4 pg Mean Corpuscular Hemoglobin Concent 34.1 g/dl Platelet Count 73 K/uL Mean Platelet Volume 9.3 fL Neutrophils (%) (Auto) 60.6 % Lymphocytes (%) (Auto) 23.8 % Monocytes (%) (Auto) 13.0 % Eosinophils (%) (Auto) 1.1 % Basophils (%) (Auto) 0.4 % Neutrophils # (Auto) 1.63 K/uL Lymphocytes # (Auto) 0.64 K/uL Monocytes # (Auto) 0.35 K/uL Eosinophils # (Auto) 0.03 K/uL Basophils # (Auto) 0.01 K/uL RDW Standard Deviation 45.3 fL RDW Coefficient of Variation 14.6 % Immature Granulocyte % (Auto) 1.1 % Immature Granulocyte # (Auto) 0.03 K/uL Toxic Granulation 2+ Dohle Bodies 2+ Sodium Level 133 mmol/L Potassium Level 4.0 mmol/L Chloride Level 101 mmol/L Carbon Dioxide Level 28 mmol/L Anion Gap 5.0 mmol/L Blood Urea Nitrogen 23 mg/dl Creatinine 1.15 mg/dl Est Creatinine Clear Calc Drug Dose 72.2 ml/min Estimated GFR () 78.1 Estimated GFR (Non- 67.4 BUN/Creatinine Ratio 20.3 Random Glucose 95 mg/dl Calcium Level 8.5 mg/dl Magnesium Level 1.7 mg/dl Thyroid Stimulating Hormone (TSH) 1.060 uIu/ml Test 10/31/17 07:32 10/31/17 10:01 Bedside Glucose 115 mg/dl 200 mg/dl Patient Name: LIZET JONES Unit Number: [id number] Dictated: 10/30/171423 Transcribed: 10/30/171423 EV Printed Date/Time: [~ rep prt dt]/[~ rep prt tm] [~ rep ct labl] - [~ rep ct ivnm] [facility] Radiology Department [place], [place] [id number] Dictated: 10/30/171423 Transcribed: 10/30/171423 EV Printed Date/Time: [~ rep prt dt]/[~ rep prt tm] [~ rep ct labl] - [~ rep ct ivnm] CT SCAN OF THE CHEST, ABDOMEN, AND PELVIS WITH IV CONTRAST CLINICAL HISTORY: Bladder cancer. COMPARISON STUDY: Chest CT dated 08/29/2017. Abdominal CT dated 10/12/2017 and 08/22/2017. TECHNIQUE: Following the IV administration of 93 of Optiray 320, CT scan of the chest, abdomen, and pelvis was performed from the thoracic inlet to the proximal femora. Images are reviewed in the axial, sagittal, and coronal planes. IV contrast was administered without complication. Automated dose control exposure was utilized. A dose lowering technique was utilized adhering to the principles of ALARA. CT DOSE: 1414.29 mGycm FINDINGS: CHEST: Thyroid: Imaged portions of the thyroid gland are normal in size and attenuation. Thoracic aorta: There is mild atherosclerotic calcification of the thoracic aorta, which is normal in caliber and demonstrates standard 3-vessel arch anatomy. No dissection is seen. A left subclavian central venous infusion port is in place. Pulmonary vasculature: The pulmonary trunk is normal in caliber. There are no filling defects identified in the central pulmonary vessels to indicate pulmonary embolus. Note that this examination was not protocoled for evaluation of the pulmonary arteries. Heart: The heart is normal in size and configuration, and without pericardial effusion. The coronary arteries are densely calcified. Lungs and pleural spaces: An impacted bronchus is seen at the left lung base. No airspace consolidation or pleural effusion is identified. A 4 mm pleural-based nodule in the right middle lobe lung minor fissure seen on image #149 is unchanged. No new or concerning pulmonary nodule is seen. A small calcified granulomas identified in the anterior right middle lobe. The trachea and central airways are clear. Mediastinum: There are scattered subcentimeter mediastinal lymph nodes. These are not pathologically enlarged by size criteria. Halina: Clear. Axillae: There is no axillary lymphadenopathy. Bony thorax: No lytic or blastic lesions are identified. ABDOMEN AND PELVIS: Liver: The contrast-enhanced liver is normal in size, contour, and attenuation. There is no intrahepatic or ductal dilatation. The hepatic veins and portal veins are patent. Gallbladder: Unremarkable. Spleen: The spleen is enlarged measuring 16.5 cm in length. Pancreas: Unremarkable. Adrenal glands: Unremarkable. Kidneys: The contrast enhanced kidneys demonstrate mild cortical atrophy and are without hydronephrosis. A percutaneous nephrostomy tube and ureteral stent are present on the right. There is heterogeneous enhancement of the right kidney with associated perinephric stranding. Urothelial thickening enhancement are identified in the right renal pelvis and along the course of the ureter. The left kidney enhances homogeneously. There are punctate nonobstructing calculi present within both kidneys. 1.3 cm cyst is identified in the right lower pole. Numerous additional subcentimeter cortical hypodensities also likely represent cysts but are too small for definitive characterization. A small focus of gas is present within the right renal collecting system. There is mild fullness of the distal left ureter just above the bladder. Abdominal vasculature: The abdominal aorta is normal in course and caliber noting moderate atherosclerotic calcification. Stomach and bowel: There is a tiny hiatal hernia. The stomach and duodenum are normal in configuration. There is moderate sigmoid diverticulosis without CT evidence of acute diverticulitis. Moderate colonic fecal retention is observed. No bowel obstruction is seen. The appendix is well-visualized and normal. Peritoneum: There is no intraperitoneal free air or abdominal ascites. Lymphadenopathy: None. Pelvic viscera: The bladder is partially decompressed around a Hernandez catheter. The bladder wall is markedly thickened (asymmetrically greatest on the right), heterogeneous, and trabeculated. There is pericystic inflammatory stranding. Gas is present within the bladder lumen, and the bladder also contains the distal end of a right ureteral stent. The prostate and seminal vesicles are normal as imaged. Skeletal structures: No lytic or blastic lesions are seen. IMPRESSION: 1. The bladder is partially decompressed around a Hernandez catheter. The bladder wall is asymmetrically thickened, heterogeneous, and hyperemic. There is associated pericystic inflammatory stranding. Some of this is likely related to the reported history of bladder cancer. Correlate clinically for evidence of superimposed cystitis, either on an infectious basis or related to radiation treatment. 2. A percutaneous nephrostomy tube and a ureteral stent are present on the right. There is no hydronephrosis. 3. There is heterogeneous perfusion of the right kidney, a small focus of gas within the right renal collecting system, urothelial thickening and enhancement involving the right renal pelvis and the right ureter, and right-sided perinephric stranding. Although these findings could be related to the presence of indwelling catheters, correlate with urinalysis for evidence of superimposed infection. 4. There is no convincing evidence of metastatic disease in the chest, abdomen, or pelvis. 5. Moderate sigmoid diverticulosis without CT evidence of acute diverticulitis. 6. Splenomegaly. 7. There is no airspace consolidation or pleural effusion. 8. Small bilateral nonobstructing renal calculi. 9. Additional findings as above. Electronically signed by: Tino Pandey M.D. 10/30/2017 2:40 PM Dictated Date/Time: 10/30/2017 2:24 PM The status of this report is Signed. Draft = Not yet reviewed or approved by Radiologist. Signed = Reviewed and approved by Radiologist. <AttendingPhy>Balwinder Marte MD</AttendingPhy> <FamilyPhy>Vasyl Westbrook D.OMark</FamilyPhy> <PrimaryPhy>Vasyl Westbrook D.O.</PrimaryPhy> <UnitNumber> [id number]</UnitNumber> <VisitNumber>[id number]</VisitNumber> <PatientName> LIZET JONES</PatientName> <DateOfBirth>1955</DateOfBirth> <Location> C.4E</Location> <ServiceDate>10/29/17</ServiceDate> <MNE>ESINDI</MNE> < OrderingPhy>Paula Scales</OrderingPhy> <OrderingPhyMNE>f rep ord dr montoya</OrderingPhyMNE> <DictatingPhyMNE>f rep dict dr mne</DictatingPhyMNE> < CCListMNE>f rep ct lindsay</CCListMNE> <AdmittingPhyMNE>f pt admit dr montoya</ AdmittingPhyMNE> <AttendingPhyMNE>f pt attend dr montoya</AttendingPhyMNE> <ConsultingPhyMNE>f pt consult dr montoya</ConsultingPhyMNE> <FamilyPhyMNE>f pt fam dr montoya</FamilyPhyMNE> <OtherPhyMNE>f pt other dr montoya</OtherPhyMNE> < PrimaryPhyMNE>f pt prim care dr montoya</PrimaryPhyMNE> <ReferringPhyMNE>f pt referring dr montoya</ReferringPhyMNE> Assessment & Plan 62-year-old male with recurrent urinary tract infection with Klebsiella pneumoniae in the setting of obstructive uropathy in indwelling right nephrostomy tube as well as bladder cancer. Patient appears to be slowly responding to ciprofloxacin to which isolate is sensitive, and this certainly can be given orally. Would recommend continuing patient on antibiotics until definitive surgery has been performed. Will discuss with all involved.
[2017-10-31] MEDS ORDERED: HYDROmorphone INJ 0.5 MG/0.5 ML SYR IV ONE (11:00)
[2017-10-31] MEDS ORDERED: KETOROLAC TROMETHAMINE 30 MG/ML VIAL IV ONE (11:00)
[2017-10-31] MEDS ORDERED: SODIUM CHLORIDE 0.9% 1000ML 1,000 ML IV SCH ×2 (11:00→11:45)
[2017-10-31] MEDS: GABAPENTIN 300 MG CAP PO SCH (12:42)
[2017-10-31] MEDS: OXYCODONE/ACETAMINOPHEN 10/325MG TAB PO PRN ×2 (13:49→21:59)
[2017-10-31] MEDS ORDERED: NURSING VERBAL MED ORDER ONE (14:15)
[2017-10-31] MEDS: ATORVASTATIN 40 MG TAB PO SCH (20:28)
[2017-10-31] MEDS: TAMSULOSIN HCL 0.4 MG CAP PO SCH (20:28)
--- NOTE | 2017-10-31 22:05 | Progress Note ---
Subjective Date of Service: Oct 31, 2017. Subjective Pt evaluation today including: conversation w/ patient, conversation w/ family (daughter by phone), physical exam, chart review, lab review, review of studies (CTs from yesterday), review of inpatient medication list Pain: after bowel movement this AM he had LUQ/LLQ abd pain PO Intake: eating better Voiding: solano catheter in place (along w/ nephrostomy tube) had a good night slept decently this am he had a very large bowel movement some of which was in balls/ constipation and he had associated straining immediately after he had a very sharp pain in the LUQ he felt like he needed to have another bowel movement he had pain in the LLQ as well nursing staff called me - I ordered toradol 30mg IV x 1 and dilaudid 0.5mg IV x 1 - pain resolved EKG - no ST changes he also felt dizzy this am w/ standing - gave fluid bolus w/ resolution of dizziness declines PT; he is ambulating "fine" Problem List Medical Problems: (1) Abdominal pain Status: Acute (2) Acute hyponatremia Status: Acute (3) Bladder neoplasm Status: Acute (4) Constipation Status: Acute (5) Fungal infection Status: Acute (6) Generalized weakness Status: Acute (7) Hypomagnesemia Status: Acute (8) Intractable abdominal pain Status: Acute (9) Urinary tract infection associated with nephrostomy catheter Status: Acute (10) UTI (urinary tract infection) Status: Acute Review of Systems Constitutional: + sweats (had diaphoresis when he had the LUQ pain), No fever, No chills Respiratory: No shortness of breath, No dyspnea on exertion Cardiac: No chest pain, No orthopnea, No PND, No edema Abdomen: + see HPI, + pain, No nausea, No vomiting Objective Vital Signs Date Time Temp Pulse Resp B/P (MAP) Pulse Ox O2 Delivery O2 Flow Rate FiO2 10/31/17 20:10 36.9 75 19 100/63 (75) 99 Room Air 10/31/17 16:00 99 Room Air 10/31/17 15:00 36.7 60 18 96/54 (68) 99 Room Air 10/31/17 11:17 36.8 72 18 100/54 (69) 99 Room Air 10/31/17 09:53 36.7 76 88/56 (67) 10/31/17 09:15 Room Air 10/31/17 07:24 36.3 68 18 98/68 (78) 96 Room Air 10/31/17 03:35 36.8 70 18 88/56 (67) 99 Room Air 10/31/17 00:00 Room Air 10/30/17 23:00 36.9 68 18 97/62 (74) 99 Room Air Physical Exam General Appearance: no apparent distress, + pertinent finding (looks good today ) ENT: pharynx normal Neck: no JVD Respiratory/Chest: lungs clear, no respiratory distress, no accessory muscle use Cardiovascular: regular rate, rhythm, no gallop, no murmur Abdomen: normal bowel sounds, soft, no organomegaly, + tenderness (minimal suprapubic region; minimal LUQ/LLQ) Extremities: no pedal edema Neurologic/Psychiatric: alert, oriented x 3 Skin: + pallor Laboratory Results Last 24 Hours Test 10/31/17 06:18 10/31/17 07:32 10/31/17 10:01 10/31/17 11:31 White Blood Count 2.69 K/uL Red Blood Count 2.89 M/uL Hemoglobin 8.5 g/dL Hematocrit 24.9 % Mean Corpuscular Volume 86.2 fL Mean Corpuscular Hemoglobin 29.4 pg Mean Corpuscular Hemoglobin Concent 34.1 g/dl Platelet Count 73 K/uL Mean Platelet Volume 9.3 fL Neutrophils (%) (Auto) 60.6 % Lymphocytes (%) (Auto) 23.8 % Monocytes (%) (Auto) 13.0 % Eosinophils (%) (Auto) 1.1 % Basophils (%) (Auto) 0.4 % Neutrophils # (Auto) 1.63 K/uL Lymphocytes # (Auto) 0.64 K/uL Monocytes # (Auto) 0.35 K/uL Eosinophils # (Auto) 0.03 K/uL Basophils # (Auto) 0.01 K/uL RDW Standard Deviation 45.3 fL RDW Coefficient of Variation 14.6 % Immature Granulocyte % (Auto) 1.1 % Immature Granulocyte # (Auto) 0.03 K/uL Toxic Granulation 2+ Dohle Bodies 2+ Sodium Level 133 mmol/L Potassium Level 4.0 mmol/L Chloride Level 101 mmol/L Carbon Dioxide Level 28 mmol/L Anion Gap 5.0 mmol/L Blood Urea Nitrogen 23 mg/dl Creatinine 1.15 mg/dl Est Creatinine Clear Calc Drug Dose 72.2 ml/min Estimated GFR () 78.1 Estimated GFR (Non- 67.4 BUN/Creatinine Ratio 20.3 Random Glucose 95 mg/dl Calcium Level 8.5 mg/dl Magnesium Level 1.7 mg/dl Thyroid Stimulating Hormone (TSH) 1.060 uIu/ml Bedside Glucose 115 mg/dl 200 mg/dl 133 mg/dl Test 10/31/17 16:51 10/31/17 20:28 Bedside Glucose 108 mg/dl 124 mg/dl Assessment and Plan 62 yo male with: 1. klebsiella UTI - complicated/solano-catheter associated - d/c cefepime, change to cipro. Day #3 of antibiotics. Urology recommending 14 days in total of abx, then changing to once daily antibiotic (TMP, etc) for UTI prophylaxis. No evidence of septicemia with negative blood cx's. 2. hyponatremia - improved, was 2nd to volume depletion; BMP am. 3. acute kidney injury - 2nd to #1, #2 - resolved. 4. hypomagnesemia - ongoing but much improved- give additional IV mag today, then repeat level in am. 5. urothelial cancer - management per urology and heme/onc - s/p chemo 7-10 days [address]s of chest/abd/pelvis yesterday without metastatic disease. 6. right-sided ureteral obstruction due to #5 - s/p nephrostomy tube at [facility] last month. 7. ?fungemia or fungal UTI - awaiting records from [facility] from last month , but there has been no evidence of such while here; diflucan stopped. 8. recent c diff colitis at [facility] - daughter reports he never had diarrhea while at [facility]. And, he did not have diarrhea at home either. In fact, he has severe constipation typically due to his narcotics. He finished a course of vanco PO at home, however. 9. FEN - fluids stopped, replace mag, BMP/mag in am. Eating again improved. 10. DM II - controlled. 11. CAD - stable; cont asa/statin/BB. EKG today w/o ischemic changes. I do not believe his pain this am was cardiac; likely GI. 12. HTN - controlled; hold MICHAEL since BPs are low. Also hold metoprolol due to low BP. 13. chemotherapy induced pancytopenia - daily CBC. Appears to be approaching a kush. 14. DVT proph - platelet count continues to fall slowly; thus, avoid chemical means for now. SCDs. 15. abdominal pain, left-sided - in the setting of severe constipation this am. Resolved. Bowel regimen. CT abd/pelvis yesterday w/o acute pathology (no diverticulitis, etc). 16. low-normal BPs - likely due to volume depletion; adrenal glands on CT yesterday appeared normal. If low BPs persist, however, consider cortisol level. NS bolus given followed by 1 additional liter of fluid today. Hold BP/CAD meds. daughter updated again tonight progressing nicely home hopefully tomorrow Continued [facility] stay due to: multiple IV medications needed Discharge planning: home
[2017-11-01] VITALS (7 sets, daily range): BP systolic 99–126; BP diastolic 57–76; PULSE 59–70; TEMP 36.7–37.1; O2SAT 96–100
[2017-11-01] MEDS: CHECK FENTANYL PATCH PLACEMENT SCH ×3 (00:21→15:51)
[2017-11-01] MEDS: HYDROmorphone INJ 1 MG/ML SYR IV PRN ×3 (01:57→14:37)
[2017-11-01 06:17] LABS: HEMATOCRIT 24.5 % (42-52); HEMOGLOBIN 8.3 g/dL (14.0-18.0); MEAN CORPUSCULAR HEMOGLOBIN 29.1 pg (25-34); MEAN CORPUSCULAR HGB CONC 33.9 g/dl (32-36); MEAN PLATELET VOLUME 9.5 fL (7.4-10.4); PLATELET COUNT 71 K/uL (130-400); RED CELL DISTRIBUTION WIDTH CV 14.3 % (11.5-14.5); RED CELL DISTRIBUTION WIDTH SD 45.1 fL (36.4-46.3); WHITE BLOOD COUNT 1.86 K/uL (4.8-10.8)
[2017-11-01 06:26] LABS: BASO % 1.1 %; BASO ABS # 0.02 K/uL (0-0.2); EOS % 1.6 %; EOS ABS # 0.03 K/uL (0-0.5); IG# 0.03 K/uL (0.00-0.02); LYMPH % 34.4 %; LYMPH ABS # 0.64 K/uL (1.2-3.4); MONO % 23.7 %; MONO ABS # 0.44 K/uL (0.11-0.59); NEUT % 37.6 %
[2017-11-01 06:32] LABS: CALCIUM 8.4 mg/dl (8.5-10.1); CREATININE 1.18 mg/dl (0.60-1.40); POTASSIUM 4.2 mmol/L (3.5-5.1)
[2017-11-01] MEDS ORDERED: FENTANYL PATCH REMOVE & WASTE SCH (07:59)
[2017-11-01] MEDS ORDERED: SENNA 8.6 MG TAB PO SCH (08:00)
[2017-11-01] MEDS: BOOST GLUCOSE CONTROL PO SCH ×2 (08:00→15:51)
[2017-11-01] MEDS ORDERED: FENTANYL 75 MCG/HR TDSY TD SCH (08:00)
[2017-11-01] MEDS: INSULIN ASPART 100 UNITS/ML 3 ML PEN SC SCH ×3 (08:01→17:30)
[2017-11-01] MEDS: OXYBUTYNIN CHLORIDE 5 MG TAB PO PRN (08:03)
[2017-11-01] MEDS: GABAPENTIN 600 MG TAB PO SCH (08:03)
[2017-11-01] MEDS: CITALOPRAM 20 MG TAB PO SCH (08:04)
[2017-11-01] MEDS: CIPROFLOXACIN 500 MG TAB PO SCH (08:04)
[2017-11-01] MEDS: DOCUSATE SODIUM 100 MG CAP PO SCH (08:05)
[2017-11-01] MEDS: ASPIRIN 81 MG ECTAB PO SCH (08:05)
[2017-11-01] MEDS: PSYLLIUM 58.6% PWD PACK S\\F PO SCH ×3 (08:05→15:52)
[2017-11-01] MEDS: MAGNESIUM SULFATE 1GM / D5W 1 GM in PREMIXED IN D5W 100 ML IV SCH ×2 (08:16→09:39)
[2017-11-01] MEDS: OXYCODONE/ACETAMINOPHEN 10/325MG TAB PO PRN (09:45)
[2017-11-01] MEDS: GABAPENTIN 300 MG CAP PO SCH (11:42)
[2017-11-01] MEDS ORDERED: CPR500 PO (16:24)
[2017-11-01] MEDS ORDERED: MRLP17X PO (16:24)
[2017-11-01] MEDS ORDERED: CLC100 PO (16:24)
[2017-11-01] MEDS ORDERED: NUTR-7 PO (16:24)
[2017-11-01] MEDS ORDERED: NITR-5 PO (16:24)
--- NOTE | 2017-11-01 16:33 | Discharge Instructions ---
Discharge Instructions Date of Service Nov 01, 2017. Admission Reason for Admission: Abdominal Pain, Uti Discharge Discharge Diagnosis / Problem: Urinary tract infection-complicated, urothelial cancer Discharge Goals Goal(s): Improve disease control, Diagnostic testing, Therapeutic intervention Activity Recommendations Activity Limitations: resume your previous activity Shower/Bathe: no limitations . Instructions / Follow-Up Instructions / Follow-Up You were admitted with a urinary tract infection and treated with antibiotics. You should finish out the course of ciprofloxacin for 10 more days and then take Macrobid 100 mg once daily in the evening for urinary tract infection prevention until you have your surgery. Please follow-up as scheduled with both urology and oncology. Please also follow-up with your family physician within 1-2 weeks. Current Hospital Diet Patient's current hospital diet: Diabetes Type 2 Diet Discharge Diet Recommended Diet: Diabetes Type 2 Diet Procedures Procedures Performed: CT chest/abdomen/pelvis Pending Studies Studies pending at discharge: yes List of pending studies: Final blood cultures-no growth to date Laboratory Results Last 24 Hours Test 10/31/17 16:51 10/31/17 20:28 11/01/17 05:20 11/01/17 08:01 Bedside Glucose 108 mg/dl 124 mg/dl 106 mg/dl White Blood Count 1.86 K/uL Red Blood Count 2.85 M/uL Hemoglobin 8.3 g/dL Hematocrit 24.5 % Mean Corpuscular Volume 86.0 fL Mean Corpuscular Hemoglobin 29.1 pg Mean Corpuscular Hemoglobin Concent 33.9 g/dl Platelet Count 71 K/uL Mean Platelet Volume 9.5 fL Neutrophils (%) (Auto) 37.6 % Lymphocytes (%) (Auto) 34.4 % Monocytes (%) (Auto) 23.7 % Eosinophils (%) (Auto) 1.6 % Basophils (%) (Auto) 1.1 % Neutrophils # (Auto) 0.70 K/uL Lymphocytes # (Auto) 0.64 K/uL Monocytes # (Auto) 0.44 K/uL Eosinophils # (Auto) 0.03 K/uL Basophils # (Auto) 0.02 K/uL RDW Standard Deviation 45.1 fL RDW Coefficient of Variation 14.3 % Immature Granulocyte % (Auto) 1.6 % Immature Granulocyte # (Auto) 0.03 K/uL Toxic Granulation 1+ Dohle Bodies 2+ Sodium Level 136 mmol/L Potassium Level 4.2 mmol/L Chloride Level 104 mmol/L Carbon Dioxide Level 24 mmol/L Anion Gap 8.0 mmol/L Blood Urea Nitrogen 21 mg/dl Creatinine 1.18 mg/dl Est Creatinine Clear Calc Drug Dose 70.3 ml/min Estimated GFR () 75.7 Estimated GFR (Non- 65.3 BUN/Creatinine Ratio 17.6 Random Glucose 89 mg/dl Calcium Level 8.4 mg/dl Magnesium Level 1.5 mg/dl Test 11/01/17 11:49 Bedside Glucose 135 mg/dl Medical Emergencies . Who to Call and When: Medical Emergencies: If at any time you feel your situation is an emergency, please call 911 immediately. . Non-Emergent Contact Non-Emergency issues call your: Primary Care Provider, Oncologist Call Non-Emergent contact if: temperature is above 100.5, your pain is not controlled, your pain is worsening, your pain is unusual for you, your pain is concerning you, wound has increased drainage, wound has increased redness, wound has increased pain, you have any medication questions You have any changes in the urine in your Hernandez catheter bag or your nephrostomy tube bag. . . "Provider Documentation" section prepared by Mala Justin. .
[2017-11-01] MEDS ORDERED: METO25TA56 PO (16:39)
--- NOTE | 2017-11-01 16:52 | Discharge Summary ---
Discharge Summary Date of Service Nov 01, 2017. Discharge Summary Admission Date: Oct 29, 2017 at 04:56 Discharge Date: Nov 01, 2017 Discharge Disposition: Home Principal Diagnosis: Complicated UTI, urothelial cancer Problems/Secondary Diagnoses: Klebsiella UTI - complicated/sloano-catheter associated Hyponatremia . Acute kidney injury Hypomagnesemia H/o right-sided ureteral obstruction s/p Right nephrostomy tube History of fungal UTI History of recent c diff colitis at [facility] Constipation DM II CAD HTN Chemotherapy induced pancytopenia Neutropenia Procedures: CT chest/abdomen/pelvis Consultations: Urology Infectious disease Medication Reconciliation New Medications: Nitrofurantoin Monohyd Macrocr (Macrobid) 100 Mg Cap 100 MG PO HS for 14 Days, #14 CAP TO START AFTER COMPLETION OF COURSE OF CIPRO FOR PREVENTION OF UTI Ciprofloxacin (Ciprofloxacin HCl) 500 Mg Tab 500 MG PO BID, #21 TAB Docusate Sodium (Docusate Sodium) 100 Mg Cap 100 MG PO BID for 30 Days, CAP Nutritional Supplements (Boost) 1 Liq Liq 1 CAN PO BIDM for 30 Days Polyethylene (Miralax) 17 Gm Pow 17 GM PO DAILY for 30 Days, #1 BTL OTC Changed Medications: Metoprolol Tartrate (Lopressor) (Lopressor) 25 Mg Tab 25 MG PO BID for 30 Days, TAB (Medication details modified) HOLD until advised to restart by your PCP, for low blood pressures Continued Medications: Albuterol Sulfate (Proair Respiclick) 108 Mcg/Act Aer 2 PUFFS INH UD PRN for SOB/Wheezing Aspirin (Aspirin Ec) 81 Mg Tab 81 MG PO QAM Atorvastatin (Lipitor) 80 Mg Tab 80 MG PO QPM Citalopram Hydrobromide (Citalopram Hydrobromide) 10 Mg Tab 10 MG PO QAM Fentanyl (Duragesic) 75 Mcg Tdsy 75 MCG TD Q72H, #10 Gabapentin (Gabapentin) 300 Mg Cap 300 MG PO DAILY@1200, #30 CAP Gabapentin (Gabapentin) 600 Mg Tab 600 MG PO AMPM Lactulose (Lactulose) 30 Gm/45 Ml Syrp 30 GM PO DAILY PRN for Constipation, #1 BTL Ondansetron Odt (Zofran Odt) 8 Mg Soltab 4 MG SL Q8 PRN for Nausea, TAB Oxybutynin Chloride (Ditropan) 5 Mg Tab 5 MG PO TID PRN for Bladder pain Oxycodone/Acetaminophen 10MG/325MG (Oxycodone/Acetaminophen 10MG/325MG) 1 Tab Tab 1 TAB PO QID PRN for Pain, #120 TAB Phenazopyridine HCl (Pyridium) 200 Mg Tab 200 MG PO TID PRN for Bladder pain Psyllium (Konsyl) 1 Pkt Pack 1 PKT PO TIDM for 30 Days Tamsulosin Hcl (Flomax) 0.4 Mg Cap 0.4 MG PO QPM Discontinued Medications: Fentanyl (Duragesic) 75 Mcg Tdsy 75 MCG TD Q72H Gabapentin (Neurontin) 300 Mg Cap 300 MG PO DAILY@ NOON, CAP Lisinopril (Lisinopril) 2.5 Mg Tab 2.5 MG PO QAM Discharge Exam Patient doing well, he has some of his chronic right flank pain, but no further left-sided abdominal pain. He is tolerating p.o., denies lightheadedness, he is ambulating around the room without difficulties. He remains afebrile. He denies chest pain or shortness of breath. No other concerns. I discussed the case with his oncologist on the phone who states that his CBC and counts including his neutropenia are expected at this point after his chemotherapy. As he remains afebrile and is on antibiotics, it is okay for him to be discharged to home. Review of Systems: Constitutional: No fever Eyes: No problem reported ENT: No problem reported Respiratory: No problem reported Cardiovascular: No problem reported Abdomen: No problem reported Musculoskeletal: No problem reported Genitourinary - Male: No problem reported Neurologic: No problem reported Psychiatric: No problem reported Endocrine: No problem reported Hematologic / Lymphatic: No problem reported Integumentary: No problem reported Physical Exam: General Appearance: WD/WN, no apparent distress Eyes: normal inspection, sclerae normal ENT: hearing grossly normal Neck: trachea midline Respiratory/Chest: lungs clear, normal breath sounds, no respiratory distress, no accessory muscle use Cardiovascular: regular rate, rhythm, no edema, no gallop, no murmur, normal peripheral pulses Abdomen / GI: normal bowel sounds, non tender, soft, no organomegaly, no pulsatile mass, + pertinent finding (Right sided nephrostomy tube in place without surrounding erythema or drainage, nephrostomy tube bag is draining clear yellow urine; Solano catheter is draining clear yellow urine) Extremities: normal inspection, no calf tenderness, normal capillary refill , no pedal edema, normal range of motion Neurologic/Psychiatric: no motor/sensory deficits, alert, normal mood/affect , oriented x 3 Skin: normal color, warm/dry, no rash Hospital Course This patient is a 62 y/o male with a history of diet controlled DM II, CAD, HTN , and recent diagnosis of urothelial bladder CA - post TURBT and R ureteral stent. Pt with chronic Solano. Treated for pyelo/urosepsis due to klebsiella and had a right sided ureteral stent exchanged due to CA invasion/ obstruction. A Port was placed for chemotherapy which commenced on 09/25 w/ MVAC regimen. He was again obstructed 10/12 and was transferred to [facility] where he ultimately received a R nephrostomy tube as restenting failed. While at [facility] he states he had a disseminated fungal infection for which he was prescribed Diflucan, and completed his prescription 2 days ago. He also developed C diff and completed a course of Vancocin 2 day ago. Pt presented today with severe lower abdominal pain. He had a fever one day prior to admission. A UA obtained both from the catheter and the nephrostomy is strongly (+). He denies SOB, a productive cough, nausea or vomiting. Initial labs are notable for leukocytosis, anemia, hyponatremia and SANTHOSH. 1. Klebsiella UTI - complicated/solano-catheter associated -received cefepime initially, changed to cipro. Day #4 of antibiotics. Urology and infectious disease recommending 14 days in total of abx, then changing to once daily antibiotic such as Macrobid for UTI prophylaxis until he has his cystectomy in early November. No evidence of septicemia with negative blood cx's. 2. Hyponatremia -resolved, was 2nd to volume depletion 3. acute kidney injury - 2nd to #1, #2 - resolved. 4. hypomagnesemia - ongoing but improved- give additional IV mag today, should follow periodically as an outpatient 5. urothelial cancer - management per urology and heme/onc - s/p chemo last treatment on 10/23/17 CTs of chest/abd/pelvis here without metastatic disease. 6. right-sided ureteral obstruction due to #5 - s/p nephrostomy tube at [facility] last month.-Making good urine output 7. History of fungal UTI -received records from [facility] in the form of the admission history and physical, but no discharge summary from last month, but there has been no evidence of such while here; diflucan stopped. 8. Recent c diff colitis at [facility] -had diarrhea on admission there, but none since. He has actually had constipation here. In fact, he has severe constipation typically due to his narcotics. He finished a course of vanco PO at home, however. 9. FEN - fluids stopped, replaced mag, BMP/mag in am. Eating again improved. 10. DM II - controlled. 11. CAD - stable; cont asa/statin/BB but beta-duyen on hold for low normal blood pressures at this time. EKG w/o ischemic changes. 12. HTN - controlled; hold MICHAEL since BPs are low. Also hold metoprolol due to low BP. -Follow-up with PCP and can restart beta-duyen at that time if needed 13. chemotherapy induced pancytopenia - daily CBC. Appears to be approaching a kush. ANC 700 with neutropenia today, but remains afebrile. Discussed with oncology and find to discharge to home. Expect counts to come up in the next 1- 2 days. 14. DVT proph - platelet count continues to fall slowly; thus, avoided chemical anticoagulation. SCDs. 15. abdominal pain, left-sided - in the setting of severe constipation. Resolved. Continue with aggressive bowel regimen. CT abd/pelvis yesterday w/o acute pathology (no diverticulitis, etc). Stable for discharge to home Total Time Spent: Greater than 30 minutes This includes examination of the patient, discharge planning, medication reconciliation, and communication with other providers. Discharge Instructions Please refer to the electronic Patient Visit Report (Discharge Instructions) for additional information. Follow-Up PCP within 1-2 weeks Oncology in 2-3 weeks as scheduled Urology in 1 week as scheduled Additional Copies To Vasyl Westbrook D.O.; Nicko Sims MD; Robbie Vaca D.O.
--- NOTE | 2017-11-03 12:28 | EDITING REQUIRED CODING QUERY ---
CODING QUERY To promote full compliance with coding requirements relating to patient care, provider participation is requested in all cases of information coder uncertainty. Please assist us with the question(s) below: Coding Question(s): The ER documents Urinary Tract Infection associated with nephrostomy catheter and there is documentation in the record and on Discharge Summary of UTI complicated/solano-catheter associated. Please clarify below, in your clinical opinion. ( ) Complicated UTI is likely due to both the Solano and Nephrostomy Catheters ( x ) Complicated UTI is likely due to the Solano Catheter ( ) Complicated UTI is likely due to the Nephrostomy Catheter ( ) Complicated UTI is Not likely due to Catheters Physician's Response(s): Thank you Bárbara Elmore Principal Diagnosis: "_that condition established after study, to be chiefly responsible for occasioning the admission of the patient to the hospital for care." Co-Existing Principal Diagnosis: "_when two or more diagnoses equally meet the criteria for principal diagnosis as determined by the circumstances of admission, diagnostic work up, and/or therapy provided, and the Alphabetic Index, Tabular List, or another coding guideline does not provide sequencing direction, any one of the diagnoses may be sequenced first." "When the physician has documented what appears to be a current diagnosis in the body of the record, but has not included the diagnosis in the final diagnostic statement, the physician should be asked whether the diagnosis should be added." (Source Coding [facility] 2 QTR90. p3-4)
== END 2017-11-01 18:00 | disposition home or self-care (01) | DRG 698 ==
LOC: C.EDB 01:31 → C.4E 04:56 → EDBEDREQ 05:09 → EDBEDREQSVC 05:09 → ENRESERV 05:16
PROVIDERS: ADMIT Internal Medicine; ATTEND Family Medicine
DX: T83.518A Infection and inflammatory reaction due to other urinary catheter, initial encounter (principal); D61.810 Antineoplastic chemotherapy induced pancytopenia; N39.0 Urinary tract infection, site not specified; N17.9 Acute kidney failure, unspecified; E87.1 Hypo-osmolality and hyponatremia; B96.1 Klebsiella pneumoniae [K. pneumoniae] as the cause of diseases classified elsewhere; C67.9 Malignant neoplasm of bladder, unspecified; E83.42 Hypomagnesemia; R19.7 Diarrhea, unspecified; K59.00 Constipation, unspecified; E11.9 Type 2 diabetes mellitus without complications; E78.5 Hyperlipidemia, unspecified; I11.9 Hypertensive heart disease without heart failure; I25.10 Atherosclerotic heart disease of native coronary artery without angina pectoris; F17.200 Nicotine dependence, unspecified, uncomplicated; Z79.899 Other long term (current) drug therapy; Z79.82 Long term (current) use of aspirin; Z86.19 Personal history of other infectious and parasitic diseases; Z87.440 Personal history of urinary (tract) infections; Z87.891 Personal history of nicotine dependence; Z83.3 Family history of diabetes mellitus

== ENCOUNTER 2017-11-11 18:44 | Inpatient (IN) | payer OTHER ==
[~2017-11-11] VITALS: Ht 182.9 cm; Wt 88.5 kg
[~2017-11-11 18:44] MED LIST changes: +CLC100 PO; +CPR500 PO; -DOCU-94 PO; -GLIM4TAB2 PO; -JNV100 PO; -LSN25 PO; -METF750T PO; +MRLP17X PO; +NITR-5 PO; +NUTR-7 PO
[2017-11-11] MEDS ORDERED: SODIUM CHLORIDE 0.9% 500ML 500 ML IV STA (19:18)
[2017-11-11] MEDS ORDERED: SODIUM CHLORIDE 0.9% 1000ML 1,000 ML IV STA (19:18)
[2017-11-11] MEDS ORDERED: HYDROCODONE/ACETAMIN 5/325MG TAB PO STA (19:26)
[2017-11-11 20:02] LABS: HEMATOCRIT 23.7 % (42-52); MEAN CELL VOLUME 89.4 fL (80-100); MEAN CORPUSCULAR HEMOGLOBIN 30.2 pg (25-34); MEAN CORPUSCULAR HGB CONC 33.8 g/dl (32-36); MEAN PLATELET VOLUME 8.7 fL (7.4-10.4); PLATELET COUNT 164 K/uL (130-400); RED CELL DISTRIBUTION WIDTH CV 16.5 % (11.5-14.5); RED CELL DISTRIBUTION WIDTH SD 53.3 fL (36.4-46.3); WHITE BLOOD COUNT 10.38 K/uL (4.8-10.8)
[2017-11-11 20:23] LABS: ALT/SGPT 22 U/L (12-78); BLOOD UREA NITROGEN 28 mg/dl (7-18); CALCIUM 7.7 mg/dl (8.5-10.1); CARBON DIOXIDE 29 mmol/L (21-32); CREATININE 1.37 mg/dl (0.60-1.40); GLUCOSE 156 mg/dl (70-99); LIPASE 104 U/L (73-393); SODIUM 137 mmol/L (136-145)
[2017-11-11 20:26] LABS: ALKALINE PHOSPHATASE 96 U/L (45-117); AST/SGOT 11 U/L (15-37); BASO % 0.2 %; BASO ABS # 0.02 K/uL (0-0.2); EOS % 0.7 %; EOS ABS # 0.07 K/uL (0-0.5); IG# 0.07 K/uL (0.00-0.02); LYMPH % 11.2 %; LYMPH ABS # 1.16 K/uL (1.2-3.4); MONO % 10.6 %; NEUT % 76.6 %; NEUT ABS # 7.96 K/uL (1.4-6.5); TOTAL PROTEIN 6.3 gm/dl (6.4-8.2)
[2017-11-11] MEDS ORDERED: PROTEIN DRINK PO (20:28)
[2017-11-11] MEDS ORDERED: PSYL58.636 PO (20:28)
--- NOTE | 2017-11-11 20:36 | DIAGNOSTIC IMAGING REPORT ---
ABD/PELVIS WITHOUT FOR STONE CT DOSE: 1366.29 mGy.cm HISTORY: Pain. right nephrostomy and solano due to bladder ca. ? obstruction TECHNIQUE: Multiaxial CT images of the abdomen and pelvis were performed without the use of intravenous and oral contrast according to the standard department stone protocol. A dose lowering technique was utilized adhering to the principles of ALARA. COMPARISON STUDY: 10/30/2017 FINDINGS: Right lung bases clear. Left lung base shows minimal atelectatic and or nodular change unaltered from the prior study. Configuration of liver is unremarkable. There is a right-sided process we catheter. Several punctate nonobstructing right renal calcifications are present. No evidence for hydronephrosis on the right or left. The right-sided stent passes to the bladder. Asymmetric bladder wall thickening persists. Mild pericystic infiltrative changes stable. Findings of chronic sigmoid diverticulosis with slight increase in bowel wall thickening and pericolic infiltrative change. Acute diverticulitis is felt to be present. No evidence for abscess collection or obstruction. Bowel pattern again is nonobstructive. IMPRESSION: 1. Placement of a right nephrostomy catheter with the catheter appearing to be in good position. 2. Unchanging focal wall thickening of the bladder on the right with mild pericystic infiltrative change also unaltered. 3. No evidence for hydronephrosis. 4. No evidence for an obstructing urinary tract calculus. Several nonobstructing renal cortical calcifications bilaterally. 5. Mild sigmoid diverticulitis. 6. No evidence for abscess collection or bowel obstructive change. The above report was generated using voice recognition software. It may contain grammatical, syntax or spelling errors. Electronically signed by: Wil Waldrop M.D. 11/11/2017 8:34 PM Dictated Date/Time: 11/11/2017 8:29 PM
[2017-11-11] MEDS ORDERED: HYDROmorphone INJ 1 MG/ML SYR IM STA (20:53)
[2017-11-11] MEDS ORDERED: CIPROFLOXACIN 400MG / 200ML D5W IV STA (21:19)
[2017-11-11] MEDS ORDERED: METRONIDAZOLE 500MG / 100ML NSS IV STA (21:19)
[2017-11-11] MEDS ORDERED: ALBUTEROL HFA 8 GM INHALER INH PRN (22:15)
[2017-11-11] MEDS ORDERED: ACETAMINOPHEN 325 MG TAB PO PRN (22:15)
[2017-11-11] MEDS ORDERED: ALUMINUM/MAGNESIUM/SIMETH (MAALOX MAX) 30 ML UDC PO PRN (22:15)
[2017-11-11] MEDS ORDERED: LACTULOSE SYRUP 30 GM/45 ML UDP PO PRN (22:15)
[2017-11-11] MEDS ORDERED: ONDANSETRON INJ 2 MG/ML 2 ML VIAL IV PRN (22:15)
[2017-11-11] MEDS ORDERED: MAGNESIUM HYDROXIDE SUSP 30 ML UDC PO PRN (22:15)
--- NOTE | 2017-11-11 22:18 | EMERGENCY ROOM VISIT NOTE ---
History Report prepared by Francisco: Susan Mckee Under the Supervision of: Dr. Wil Prado M.D. First contact with patient: 19:05 Chief Complaint: HEMATURIA Stated Complaint: BLADDER PAIN,BLOOD IN URINE,SHARP PAIN,CHILLS History of Present Illness The patient is a 62 year old male who presents to the Emergency Room with complaints of constant sharp suprapubic abdominal pain since this morning. He has a history of bladder cancer with a tumor in his bladder. He notes the pain in his bladder is new. He currently rates his pain an 8/10 in severity. He notes blood in his urine that began today. He also notes chills and nausea that began today. The patient had a CT A/P scan October 29, 2017. Findings: No blood clots. The patient has a nephrostomy tube and ureteral stent on right side. He has a suprapubic catheter and a Solano catheter. He was recently diagnosed with an infection two weeks ago and was prescribed Cipro and Macrobid. The culture showed: pansensitive klebsiella. Pt denies LOC, headache, fevers, diaphoresis, visual changes, neck pain, chest pain, breathing difficulties, vomiting, back pain, melena, hematochezia, numbness, weakness, rash, or other complaints. Source of History: patient Onset: since this morning Position: other (bladder) Symptom Intensity: 8/10 Quality: sharp Timing: constant Associated Symptoms: + chills, + nausea, + urinary symptoms (hematuria) Review of Systems See HPI for pertinent positives and negatives. A total of ten systems were reviewed and were otherwise negative. Past Medical & Surgical Medical Problems: (1) Abdominal pain (2) Bladder cancer (3) Bladder pain (4) Chronic back pain (5) Diabetes mellitus (6) Diverticulitis (7) Dyslipidemia (8) Gross hematuria (9) Gross hematuria (10) Intractable pain (11) Postop check (12) UTI (urinary tract infection) Family History Cancer Diabetes mellitus Social History Smoking Status: Former Smoker Drug Use: none Marital Status: Housing Status: lives with significant other Occupation Status: retired Current/Historical Medications Scheduled Aspirin (Aspirin Ec), 81 MG PO QAM Atorvastatin (Lipitor), 80 MG PO QPM Citalopram Hydrobromide (Citalopram Hydrobromide), 10 MG PO QAM Docusate Sodium (Docusate Sodium), 100 MG PO BID Fentanyl (Duragesic), 75 MCG TD Q72H Gabapentin (Gabapentin), 600 MG PO AMPM Nitrofurantoin Monohyd Macrocr (Macrobid), 100 MG PO HS Phenazopyridine HCl (Pyridium), 200 MG PO QOD Polyethylene (Miralax), 17 GM PO DAILY Psyllium (Metamucil Fiber), 1 PKT PO DAILY Tamsulosin Hcl (Flomax), 0.4 MG PO QPM [Protein Drink], 1 PO DAILY Scheduled PRN Albuterol Sulfate (Proair Respiclick), 2 PUFFS INH UD PRN for SOB/Wheezing Lactulose (Lactulose), 30 GM PO DAILY PRN for Constipation Ondansetron Odt (Zofran Odt), 4 MG SL Q8 PRN for Nausea Oxybutynin Chloride (Ditropan), 5 MG PO TID PRN for Bladder pain Allergies Coded Allergies: No Known Allergies (Unverified , 10/12/17) Physical Exam Vital Signs Date Time Temp Pulse Resp B/P (MAP) Pulse Ox O2 Delivery O2 Flow Rate FiO2 11/11/17 20:24 63 20 110/69 95 Room Air 11/11/17 18:53 36.7 66 18 94/58 96 Room Air Physical Exam GENERAL: Awake, alert, well-appearing, in no distress HENT: Normocephalic, atraumatic. Oropharynx unremarkable. EYES: Normal conjunctiva. Sclera non-icteric. NECK: Supple. No nuchal rigidity. FROM. No masses. RESPIRATORY: Clear to auscultation. No wheezes. No rales. Normal respiratory effort. CARDIAC: Normal rate. Normal rhythm. No murmurs. No rubs. Extremities warm and well perfused. Pulses equal. No JVD. GI: Soft, non-distended. Suprapubic tenderness to palpation. No rebound or guarding. No masses. : Solano catheter in place, bloody urine in bag. RECTAL: Deferred. MUSCULOSKELETAL: Atraumatic. Chest examination reveals no tenderness. Port in left upper chest. The back is symmetrical on inspection without obvious abnormality. There is no CVA tenderness to palpation. Nephrostomy tube in right flank, there is cloudiness to urine. No joint edema. LOWER EXTREMITIES: Calves are equal size bilaterally and non-tender. No edema. No discoloration. NEURO: Normal sensorium. No sensory or motor deficits noted. SKIN: No rash or jaundice noted. Medical Decision & Procedures ER Provider Diagnostic Interpretation: Radiology results as stated below per my review and radiologist interpretation: ABD/PELVIS WITHOUT FOR STONE CT DOSE: 1366.29 mGy.cm HISTORY: Pain. right nephrostomy and solano due to bladder ca. ? obstruction TECHNIQUE: Multiaxial CT images of the abdomen and pelvis were performed without the use of intravenous and oral contrast according to the standard department stone protocol. A dose lowering technique was utilized adhering to the principles of ALARA. COMPARISON STUDY: 10/30/2017 FINDINGS: Right lung bases clear. Left lung base shows minimal atelectatic and or nodular change unaltered from the prior study. Configuration of liver is unremarkable. There is a right-sided process we catheter. Several punctate nonobstructing right renal calcifications are present. No evidence for hydronephrosis on the right or left. The right-sided stent passes to the bladder. Asymmetric bladder wall thickening persists. Mild pericystic infiltrative changes stable. Findings of chronic sigmoid diverticulosis with slight increase in bowel wall thickening and pericolic infiltrative change. Acute diverticulitis is felt to be present. No evidence for abscess collection or obstruction. Bowel pattern again is nonobstructive. IMPRESSION: 1. Placement of a right nephrostomy catheter with the catheter appearing to be in good position. 2. Unchanging focal wall thickening of the bladder on the right with mild pericystic infiltrative change also unaltered. 3. No evidence for hydronephrosis. 4. No evidence for an obstructing urinary tract calculus. Several nonobstructing renal cortical calcifications bilaterally. 5. Mild sigmoid diverticulitis. 6. No evidence for abscess collection or bowel obstructive change. The above report was generated using voice recognition software. It may contain grammatical, syntax or spelling errors. Electronically signed by: Wil Wladrop M.D. 11/11/2017 8:34 PM Dictated Date/Time: 11/11/2017 8:29 PM Laboratory Results 11/11/17 19:35 Red Blood Count 2.65, Mean Corpuscular Volume 89.4, Mean Corpuscular Hemoglobin 30.2, Mean Corpuscular Hemoglobin Concent 33.8, Mean Platelet Volume 8.7, Neutrophils (%) (Auto) 76.6, Lymphocytes (%) (Auto) 11.2, Monocytes (%) (Auto) 10.6, Eosinophils (%) (Auto) 0.7, Basophils (%) (Auto) 0.2, Neutrophils # (Auto ) 7.96, Lymphocytes # (Auto) 1.16, Monocytes # (Auto) 1.10, Eosinophils # (Auto ) 0.07, Basophils # (Auto) 0.02 11/11/17 19:35 Test 11/11/17 19:35 11/11/17 19:48 11/11/17 19:50 White Blood Count 10.38 K/uL (4.8-10.8) Red Blood Count 2.65 M/uL (4.7-6.1) Hemoglobin 8.0 g/dL (14.0-18.0) Hematocrit 23.7 % (42-52) Mean Corpuscular Volume 89.4 fL (80-100) Mean Corpuscular Hemoglobin 30.2 pg (25-34) Mean Corpuscular Hemoglobin Concent 33.8 g/dl (32-36) Platelet Count 164 K/uL (130-400) Mean Platelet Volume 8.7 fL (7.4-10.4) Neutrophils (%) (Auto) 76.6 % Lymphocytes (%) (Auto) 11.2 % Monocytes (%) (Auto) 10.6 % Eosinophils (%) (Auto) 0.7 % Basophils (%) (Auto) 0.2 % Neutrophils # (Auto) 7.96 K/uL (1.4-6.5) Lymphocytes # (Auto) 1.16 K/uL (1.2-3.4) Monocytes # (Auto) 1.10 K/uL (0.11-0.59) Eosinophils # (Auto) 0.07 K/uL (0-0.5) Basophils # (Auto) 0.02 K/uL (0-0.2) RDW Standard Deviation 53.3 fL (36.4-46.3) RDW Coefficient of Variation 16.5 % (11.5-14.5) Immature Granulocyte % (Auto) 0.7 % Immature Granulocyte # (Auto) 0.07 K/uL (0.00-0.02) Toxic Granulation 2+ Dohle Bodies 1+ Anion Gap 6.0 mmol/L (3-11) Estimated GFR () 63.2 Estimated GFR (Non- 54.5 BUN/Creatinine Ratio 20.2 (10-20) Calcium Level 7.7 mg/dl (8.5-10.1) Total Bilirubin 0.1 mg/dl (0.2-1) Direct Bilirubin < 0.1 mg/dl (0-0.2) Aspartate Amino Transf (AST/SGOT) 11 U/L (15-37) Alanine Aminotransferase (ALT/SGPT) 22 U/L (12-78) Alkaline Phosphatase 96 U/L (45-117) Total Protein 6.3 gm/dl (6.4-8.2) Albumin 3.0 gm/dl (3.4-5.0) Lipase 104 U/L (73-393) Bedside Lactic Acid Venous 1.01 mmol/L (0.90-1.70) Urine Color YELLOW Urine Appearance CLOUDY (CLEAR) Urine pH 7.5 (4.5-7.5) Urine Specific [place] 1.009 (1.000-1.030) Urine Protein 1+ (NEG) Urine Glucose (UA) TRACE (NEG) Urine Ketones NEG (NEG) Urine Occult Blood 3+ (NEG) Urine Nitrite NEG (NEG) Urine Bilirubin NEG (NEG) Urine Urobilinogen NEG (NEG) Urine Leukocyte Esterase LARGE (NEG) Urine WBC (Auto) >30 /hpf (0-5) Urine RBC (Auto) >30 /hpf (0-4) Urine Hyaline Casts (Auto) 1-5 /lpf (0-5) Urine Epithelial Cells (Auto) 5-10 /lpf (0-5) Urine Bacteria (Auto) NEG (NEG) Urine Yeast (Auto) BUD W/ HYPHAE (NONE PRSENT) Urine Sperm (Auto) PRESENT (NOT PRESENT) Laboratory results reviewed by me Medications Administered Medications (Trade) Dose Ordered Sig/Young Route Start Time Stop Time Status Last Admin Dose Admin Sodium Chloride 500 ml @ 999 mls/hr Q31M STAT IV 11/11/17 19:18 11/11/17 19:48 DC 11/11/17 19:41 999 MLS/HR Sodium Chloride 1,000 ml @ 125 mls/hr Q8H STAT IV 11/11/17 19:18 11/12/17 03:17 11/11/17 19:41 125 MLS/HR Acetaminophen/ Hydrocodone Bitart ([place] 5/325 Tab) 2 tab NOW STAT PO 11/11/17 19:26 11/11/17 19:28 DC 11/11/17 19:41 2 TAB Hydromorphone HCl (Dilaudid Inj) 1 mg NOW STAT IM 11/11/17 20:53 11/11/17 20:54 DC 11/11/17 21:07 1 MG Metronidazole (Flagyl / Nss) 500 mg NOW STAT IV 11/11/17 21:19 11/11/17 21:20 DC 11/11/17 21:30 500 MG Ciprofloxacin/ Dextrose (Cipro / D5W) 400 mg NOW STAT IV 11/11/17 21:19 11/11/17 21:20 DC 11/11/17 21:29 400 MG ED Course 1913: The patient was evaluated in room C10. A complete history and physical exam was performed. 1917: Ordered Sodium Chloride 1,000 ml @ 125 mls/hr IV and Sodium Chloride 500 ml @ 999 mls/hr IV 1925: Ordered Hydrocodone Bitart/Acetaminophen 2 tab PO 2052: Ordered Dilaudid 1 mg IM RA: 2104: I reassessed the patient at this time. He does not feel well enough to go home. I discussed the results and treatment plan with the patient. I answered all pertaining questions that he had. He expressed understanding and verbalized agreement. The patient will be further evaluated. 2109: I spoke with Dr. Shea, [facility] hospitalist. We discussed the patient's case. The patient will be evaluated by the [facility] for further management. Medical Decision Triage Nursing notes reviewed. The patient's presentation and history were concerning for urinary symptoms, recent UTI, bladder cancer, indwelling stents, and prior chemotherapy. Etiologies such as intra-abdominal process, UTI, obstruction,metabolic, infection, hypo/hyperglycemia, electrolyte abnormalities, cardiac sources, intracerebral event, toxicologic, neurologic, as well as others were entertained. The patient was evaluated. Blood work and cultures obtained. Urinalysis and cultures obtained from the nephrostomy as well as the Solano. CT imaging was ordered. The patient was given saline hydration as well as oral [place]. He noted that IV pain medication through his Mediport cause severe nausea. The patient was still having pain. He was given a dose of IM Dilaudid. His CT imaging revealed inflammation around the bladder. His catheters and stent appeared to be in good position. No significant hydroureter was noted. Findings concerning for diverticulitis were present. Patient was given IV Cipro and IV Flagyl. The patient was found to have a moderate anemia on CBC. This is trended down from 8.5 now down to 8. Given his hematuria this is concerning. Urinalysis concerning for infection. The patient does not feel well enough to go home. I did discuss inpatient and outpatient treatment. The patient had a consultation placed with internal medicine. He was evaluated in the ER for further management. Medication Reconcilliation Current Medication List: was personally reviewed by me Blood Pressure Screening Patient's blood pressure: Low blood pressure Consults Time Called: 2109 Consulting Physician: Dr. Shea, [facility] hospitalist I spoke with Dr. Shea, [facility] hospitalist. We discussed the patient's case. The patient will be evaluated by the [facility] for further management. Impression Primary Impression: Suprapubic abdominal pain Additional Impressions: Hematuria UTI (urinary tract infection) Diverticulitis Scribe Attestation The scribe's documentation has been prepared under my direction and personally reviewed by me in its entirety. I confirm that the note above accurately reflects all work, treatment, procedures, and medical decision making performed by me. Departure Information Dispostion Being Evaluated By Hospitalist Referrals Vasyl Westbrook D.O. (PCP) Patient Instructions My [facility] Problem Qualifiers
--- NOTE | 2017-11-11 22:39 | History and Physical ---
History & Physical Date & Time of Service: Nov 11, 2017 at 22:18 Chief Complaint: Bladder Pain,Blood In Urine,Sharp Pain,Chills Primary Care Physician: Vasyl Westbrook D.O. History of Present Illness Source: patient, family This patient is a 62 y/o male with a history of diet controlled DM II, CAD, HTN , and recent diagnosis of urothelial bladder CA - post TURBT and R ureteral stent. He does have a chronic Solano. He presents today with gross hematuria and suprapubic abdominal pain. He has had obstructions in the recent past. The patient has a R. nephrostomy tube that is draining clear yellow urine. His solano is not draining well and does have gross hematuria. He also reports nausea and chills. He was most recently admitted 2 weeks ago and found to have complicated UTI, pansensitive klebsiella. Brief history: Diagnosis of invasive bladder CA s/p TURBT and R ureteral stent 09/13- Uropsepsis 09/29 Klebsiella + right ureteral stent exchange A port for chemo - started 09/25 - MVAC regimen 10/12 - obstructed- transferred to [facility] - received R Nephrostomy tube after failed restenting- + had disseminated fungal infection treated with Diflucan + C.diff- completed Vanc course 11/02- presented with lower abdominal pain- complicated Solano/catheter UTI Past Medical/Surgical History 1) Invasive bladder CA - urothelial - possible invasion into rectum - TURBT performed 08/08 -- Commenced chemo with MVAC regimen 09/25 2) R ureteral obstruction due to CA - stent placed 08/08 - replace 09/14 - required nephrostomy 10/12 3) CAD - STEMI 12/11 - diffuse CAD - IVY placed in RCA 4) DM II 5) HPL 6) HTN Family History Cancer Diabetes mellitus Social History Smoking Status: Former Smoker Drug Use: none Marital Status: Occupational Status: retired Multi-Drug Resistant Organisms History of MDRO: No Allergies Coded Allergies: No Known Allergies (Unverified , 10/12/17) Home Medications Scheduled Aspirin (Aspirin Ec), 81 MG PO QAM Atorvastatin (Lipitor), 80 MG PO QPM Citalopram Hydrobromide (Citalopram Hydrobromide), 10 MG PO QAM Docusate Sodium (Docusate Sodium), 100 MG PO BID Fentanyl (Duragesic), 75 MCG TD Q72H Gabapentin (Gabapentin), 600 MG PO AMPM Nitrofurantoin Monohyd Macrocr (Macrobid), 100 MG PO HS Phenazopyridine HCl (Pyridium), 200 MG PO QOD Polyethylene (Miralax), 17 GM PO DAILY Psyllium (Metamucil Fiber), 1 PKT PO DAILY Tamsulosin Hcl (Flomax), 0.4 MG PO QPM [Protein Drink], 1 PO DAILY Scheduled PRN Albuterol Sulfate (Proair Respiclick), 2 PUFFS INH UD PRN for SOB/Wheezing Lactulose (Lactulose), 30 GM PO DAILY PRN for Constipation Ondansetron Odt (Zofran Odt), 4 MG SL Q8 PRN for Nausea Oxybutynin Chloride (Ditropan), 5 MG PO TID PRN for Bladder pain Review of Systems Constitutional: + chills, + sweats Respiratory: No cough, No sputum, No wheezing, No shortness of breath, No dyspnea on exertion Cardiovascular: No chest pain Abdomen: + pain, + nausea, No diarrhea, No constipation Genitourinary - Male: + hematuria Physical Exam Vital Signs Date Time Temp Pulse Resp B/P (MAP) Pulse Ox O2 Delivery O2 Flow Rate FiO2 11/11/17 20:24 63 20 110/69 95 Room Air 11/11/17 18:53 36.7 66 18 94/58 96 Room Air General Appearance: no apparent distress Eyes: PERRL, EOMI ENT: hearing grossly normal Neck: supple, no JVD Respiratory/Chest: lungs clear, normal breath sounds, no respiratory distress, no accessory muscle use Cardiovascular: regular rate, rhythm, no edema, no murmur, normal peripheral pulses Abdomen/GI: normal bowel sounds, soft, + pertinent finding (suprapubic tenderness) Genitourinary - Male: + pertinent finding (solano draining blood) Back: no CVA tenderness, no muscle spasm, + pertinent finding (right nephrostomy tube draining clear yellow urine) Neurologic/Psych: no motor/sensory deficits, alert, normal mood/affect Diagnostics Laboratory Results Results Past 24 Hours Test 11/11/17 19:35 11/11/17 19:48 11/11/17 19:50 Range/Units White Blood Count 10.38 4.8-10.8 K/uL Red Blood Count 2.65 4.7-6.1 M/uL Hemoglobin 8.0 14.0-18.0 g/dL Hematocrit 23.7 42-52 % Mean Corpuscular Volume 89.4 80-100 fL Mean Corpuscular Hemoglobin 30.2 25-34 pg Mean Corpuscular Hemoglobin Concent 33.8 32-36 g/dl Platelet Count 164 130-400 K/uL Mean Platelet Volume 8.7 7.4-10.4 fL Neutrophils (%) (Auto) 76.6 % Lymphocytes (%) (Auto) 11.2 % Monocytes (%) (Auto) 10.6 % Eosinophils (%) (Auto) 0.7 % Basophils (%) (Auto) 0.2 % Neutrophils # (Auto) 7.96 1.4-6.5 K/uL Lymphocytes # (Auto) 1.16 1.2-3.4 K/uL Monocytes # (Auto) 1.10 0.11-0.59 K/uL Eosinophils # (Auto) 0.07 0-0.5 K/uL Basophils # (Auto) 0.02 0-0.2 K/uL RDW Standard Deviation 53.3 36.4-46.3 fL RDW Coefficient of Variation 16.5 11.5-14.5 % Immature Granulocyte % (Auto) 0.7 % Immature Granulocyte # (Auto) 0.07 0.00-0.02 K/uL Toxic Granulation 2+ Dohle Bodies 1+ Sodium Level 137 136-145 mmol/L Potassium Level 4.0 3.5-5.1 mmol/L Chloride Level 103 98-107 mmol/L Carbon Dioxide Level 29 21-32 mmol/L Anion Gap 6.0 3-11 mmol/L Blood Urea Nitrogen 28 7-18 mg/dl Creatinine 1.37 0.60-1.40 mg/dl Estimated GFR () 63.2 Estimated GFR (Non- 54.5 BUN/Creatinine Ratio 20.2 10-20 Random Glucose 156 70-99 mg/dl Calcium Level 7.7 8.5-10.1 mg/dl Total Bilirubin 0.1 0.2-1 mg/dl Direct Bilirubin < 0.1 0-0.2 mg/dl Aspartate Amino Transf (AST/SGOT) 11 15-37 U/L Alanine Aminotransferase (ALT/SGPT) 22 12-78 U/L Alkaline Phosphatase 96 45-117 U/L Total Protein 6.3 6.4-8.2 gm/dl Albumin 3.0 3.4-5.0 gm/dl Lipase 104 73-393 U/L Bedside Lactic Acid Venous 1.01 0.90-1.70 mmol/L Urine Color YELLOW Urine Appearance CLOUDY CLEAR Urine pH 7.5 4.5-7.5 Urine Specific [place] 1.009 1.000-1.030 Urine Protein 1+ NEG Urine Glucose (UA) TRACE NEG Urine Ketones NEG NEG Urine Occult Blood 3+ NEG Urine Nitrite NEG NEG Urine Bilirubin NEG NEG Urine Urobilinogen NEG NEG Urine Leukocyte Esterase LARGE NEG Urine WBC (Auto) >30 0-5 /hpf Urine RBC (Auto) >30 0-4 /hpf Urine Hyaline Casts (Auto) 1-5 0-5 /lpf Urine Epithelial Cells (Auto) 5-10 0-5 /lpf Urine Bacteria (Auto) NEG NEG Urine Yeast (Auto) BUD W/ HYPHAE NONE PRSENT Urine Sperm (Auto) PRESENT NOT PRESENT Microbiology Results 11/11/17 Blood Culture, Received Pending 11/11/17 Blood Culture, Received Pending 11/11/17 Urine Culture, Received Pending Impression Assessment and Plan 62 y/o M with recent diagnosis of urothelial bladder ca s/p TURBT, r ureteral stent and r nephrostomy tube, receiving chemo and has indewelling solano presents with gross hematuria and suprapubic pain. He has had multiple recent admissions for infection/hematuria/obstruction Gross Hematuria/?obstruction/UTI/Urothelial bladder Ca Irrigate Solano Nephrostomy tube with good output Cipro for probable complicated UTI(most recent culture shows pansensitive klebsiella) Urine culture pending U/A also shows liang- consider Diflucan Continue tamsulosin, Ditropan, Pyridium Consult Urology- Patient has cystoprostatectomy with ileal conduit planned in November Anemia, blood loss Worsening over the past month Transfuse 1 unit irradiated pRBCs, recheck h/h Mild acute diverticulitis As evidenced on CT Added Flagyl DMII- diet controlled CAD Aspirin held Contniue statin DVT proph- chemical contraindicated 62 y/o M Hx DM II, CAD, HTN, recent diagnosis of urothelial bladder CA - post TURBT and R ureteral stent. receiving chemotherapy in prep for surgery. He has an indwelling Solano and a R nephrostomy. Multiple recent admission for infection, hematuria, obstruction. Presented today as he believed his Solano may be obstructed and hematuria had progressed. Additionally, he c/o suprapubic pain and rigors. Initial labs are consistent with worsening anemia. UA from the Solano and Nephrostomy tube are +. OE AAO x 3 - pallor present S1,2 R CTAB Tender suprapubic region No CCE No deficits P: Pt will receive 2 units PRBCs due to current blood loss and worsening anemia Solano will be irrigated - Urology consulted Pt is started on Cipro as recent micro indicates infection with pansensitive Klebsiella Ther is some concern for Diverticulitis on CT - Flagyl is added to Cipro DM is normally diet-controlled VTE Prophylaxis VTE Risk Assessment Done? Y/N: Yes Risk Level: High
[2017-11-11 22:41] VITALS: BP 125/82; PULSE 54; TEMP 36.6; O2SAT 100; Ht 182.9 cm; Wt 88.5 kg
[2017-11-11] MEDS ORDERED: POLYETHYLENE (MIRALAX) 17 GM PACK PO PRN (23:15)
[2017-11-12] VITALS (10 sets, daily range): BP systolic 99–125; BP diastolic 61–76; PULSE 53–70; TEMP 36.5–36.9; O2SAT 96–99
[2017-11-12] MEDS: CHECK FENTANYL PATCH PLACEMENT SCH ×4 (00:14→23:51)
[2017-11-12] MEDS: OXYBUTYNIN CHLORIDE 5 MG TAB PO PRN ×2 (00:16→15:50)
[2017-11-12 01:22] LABS: HEMATOCRIT 25.5 % (42-52); HEMOGLOBIN 8.2 g/dL (14.0-18.0)
[2017-11-12] MEDS: METRONIDAZOLE / NSS 500 MG in PREMIXED NSS 100 ML IV SCH ×3 (03:44→20:07)
[2017-11-12] MEDS: OXYCODONE/ACETAMINOPHEN 5-325 TAB PO PRN ×4 (05:44→23:50)
[2017-11-12] MEDS ORDERED: METRONIDAZOLE / NSS 500 MG in PREMIXED NSS 100 ML IV SCH (06:00)
[2017-11-12 06:20] LABS: BASO % 0.4 %; BASO ABS # 0.03 K/uL (0-0.2); EOS % 0.9 %; EOS ABS # 0.07 K/uL (0-0.5); HEMATOCRIT 26.6 % (42-52); HEMOGLOBIN 8.9 g/dL (14.0-18.0); IG# 0.08 K/uL (0.00-0.02); LYMPH % 15.2 %; LYMPH ABS # 1.24 K/uL (1.2-3.4); MEAN CELL VOLUME 90.2 fL (80-100); MEAN CORPUSCULAR HEMOGLOBIN 30.2 pg (25-34); MEAN CORPUSCULAR HGB CONC 33.5 g/dl (32-36); MEAN PLATELET VOLUME 8.8 fL (7.4-10.4); MONO % 14.4 %; MONO ABS # 1.18 K/uL (0.11-0.59); NEUT % 68.1 %; NEUT ABS # 5.57 K/uL (1.4-6.5); PLATELET COUNT 157 K/uL (130-400); RED CELL DISTRIBUTION WIDTH CV 16.2 % (11.5-14.5); RED CELL DISTRIBUTION WIDTH SD 53.3 fL (36.4-46.3); WHITE BLOOD COUNT 8.17 K/uL (4.8-10.8)
[2017-11-12 06:40] LABS: CREATININE 1.08 mg/dl (0.60-1.40); POTASSIUM 4.2 mmol/L (3.5-5.1)
[2017-11-12] MEDS: DOCUSATE SODIUM 100 MG CAP PO SCH ×2 (09:14→20:11)
[2017-11-12] MEDS: GABAPENTIN 600 MG TAB PO SCH ×2 (09:14→20:11)
[2017-11-12] MEDS: CIPROFLOXACIN / D5W 400 MG in PREMIXED IN D5W 200 ML IV SCH ×2 (09:14→21:28)
[2017-11-12] MEDS: CITALOPRAM 20 MG TAB PO SCH (09:15)
[2017-11-12] MEDS: PHENAZOPYRIDINE HCL 200 MG TAB PO SCH (09:16)
--- NOTE | 2017-11-12 13:26 | GENITOURINARY CONSULTATION ---
DATE OF CONSULTATION: 11/12/2017 REASON FOR THE CONSULT: Gross hematuria, history of bladder cancer and history of right percutaneous nephrostomy. HISTORY OF PRESENTATION: The patient is a 62-year-old man diagnosed with invasive bladder cancer who had been having ongoing pain prior to presenting with infection and a chronically obstructed right ureter with a stent. He was sent to [place], had a port placed and was treated with for infection recently. He has also been getting chemotherapy in preparation for a radical cystectomy. Yesterday, he began to have abdominal pain. He thinks that the catheter may have been misplaced, his catheter had blood in it, catheter has had in for quite some time. He came to the hospital, catheter has been changed and currently is clear. The patient is more comfortable. He is afebrile. He is afebrile. His hemoglobin is now 26.6 after a unit of blood and appears to be stable. He is resting comfortably. REVIEW OF SYSTEMS: Please refer to review of systems from his admission history and physical at that time and now 10 systems were reviewed and were negative. PAST MEDICAL HISTORY: The patient has a history of abdominal pain, bladder cancer, bladder pain, chronic back pain, diabetes, diverticulitis, gross hematuria and UTI. SOCIAL HISTORY: He does have a history of smoking in the past. He is . MEDICATIONS: Include aspirin, Lipitor, citalopram, docusate, fentanyl patch, gabapentin, nitrofurantoin at bedtime for prophylaxis, Pyridium, MiraLax, Metamucil, and tamsulosin. PHYSICAL EXAMINATION: GENERAL: The patient is a well-developed male who is somewhat pale. He does appear to be resting comfortably. HEENT: Unremarkable. The urine is draining clearly from the right back into the nephrostomy tube. The urine now from the Hernandez catheter is clear. ABDOMEN: Soft and benign. NEUROLOGIC: He is alert and oriented without any focal sensory deficit. EXTREMITIES: Unremarkable. HEENT: Again, is unremarkable. ASSESSMENT: Apparent obstructed and possibly misplaced catheter, a history of bladder cancer with right ureteral obstruction. PLAN: The patient is on the schedule for cystectomy in approximately 2 weeks with this. Check cultures, stabilize and then continue to treat prior in preparation of cystectomy.
[2017-11-12] MEDS ORDERED: FLUCONAZOLE 50 MG TAB PO ONE (15:45)
--- NOTE | 2017-11-12 17:44 | Family Medicine Progress Note ---
Progress Note Date of Service Nov 12, 2017. Subjective Pt evaluation today including: conversation w/ patient, physical exam, chart review, lab review The patient was seen and examined at bedside. Patient reports that his solano has cleared up. He has no complaints. Saw the urologist. Patient is resting comfortably in bed. Denies having any pain. Eating and urinating well. Plan of care was described to the patient and all questions were answered. Constitutional: No fever, No chills, No sweats ENT: No hearing loss Respiratory: No cough, No sputum, No wheezing, No shortness of breath Cardiovascular: No chest pain Abdomen: No pain, No nausea, No vomiting, No diarrhea, No constipation Musculoskeletal: No muscle pain Male : No dysuria, No incontinence Neurologic: No memory loss, No weakness Endo: No fatigue Objective Physical Exam Notes: General Appearance: no apparent distress Eyes: PERRL, EOMI ENT: hearing grossly normal Neck: supple, no JVD Respiratory/Chest: lungs clear, normal breath sounds, no respiratory distress, no accessory muscle use Cardiovascular: regular rate, rhythm, no edema, no murmur, normal peripheral pulses Abdomen/GI: normal bowel sounds, soft, + pertinent finding (suprapubic tenderness) Genitourinary - Male: + pertinent finding (solano draining yellow urine with orange tint - no clots) Back: no CVA tenderness, no muscle spasm, + pertinent finding (right nephrostomy tube draining clear yellow urine) Neurologic/Psych: no motor/sensory deficits, alert, normal mood/affect Assessment and Plan 62M with a PMHx of DM2, HTN with recent diagnosis of urothelial bladder ca s/p TURBT, Right ureteral stent and Right nephrostomy tube, receiving chemo and has indewelling solano presents with gross hematuria and suprapubic pain. He has had multiple recent admissions for infection/hematuria/obstruction. Gross Hematuria 2/2 Infection vs Bladder Ca (resolved) Resolved early today, irrigated solano twice. Nephrostomy tube with good output Urine culture is negative thus far for bacteria but positive for Candidate. Diflucan 100mg Po daily started. Day #1. Continue tamsulosin, Ditropan, Pyridium Urology on board - stabilize prior to procedure in November. Bladder CA Pt is well known to urology, diagnosed in Aug 2017. Pt to receive cystoprostatectomy and ileal conduit in November. Will get Prealbumin, CRP and order nutrition supplement. Anemia, blood loss Worsening over the past month, baseline in August was 11-12. Transfuse 1 unit irradiated pRBCs, 8.0-->8.9, recheck h/h tomorrow AM. Mild acute sigmoid diverticulitis As evidenced on CT c/w Cipro and Flagyl, Day #1 DM2 HBA1C was 8.7 in 2016, will recheck today, might need insulin. CAD Aspirin held c/w Statin. DVT proph- chemical contraindicated due to anemia. FULL CODE Resident Involvement: Resident Care Provided Care Provided: Adult Hospital Medicine Reviewed: Pt Seen/Exam by Me History urine has cleared. Constitutional: denies: fever Respiratory: negative: short of breath Cardiovascular: denies chest pain General Appearance: no apparent distress Respiratory: lungs clear, no respiratory distress Cardiovascular: regular rate, rhythm Gastrointestinal: soft Neurologic/Psychiatric: alert, oriented x 3 Skin Characteristics: warm/dry Assessment/Plan Resident Physician Supervision Note: I independently interviewed and examined the patient and verified the smiley history and physical, reviewed labs and image studies, discussed the case with the resident Dr. Núñez and agree with the findings and care plan.
[2017-11-12] MEDS: ATORVASTATIN 40 MG TAB PO SCH (21:31)
[2017-11-12] MEDS: TAMSULOSIN HCL 0.4 MG CAP PO SCH (21:31)
[2017-11-13] VITALS (8 sets, daily range): BP systolic 105–128; BP diastolic 71–77; PULSE 54–62; TEMP 36.7–37; O2SAT 96–99
[2017-11-13] MEDS: METRONIDAZOLE / NSS 500 MG in PREMIXED NSS 100 ML IV SCH ×2 (04:18→11:36)
[2017-11-13 05:40] LABS: BASO % 0.3 %; BASO ABS # 0.02 K/uL (0-0.2); EOS % 0.9 %; EOS ABS # 0.07 K/uL (0-0.5); HEMATOCRIT 29.5 % (42-52); HEMOGLOBIN 9.4 g/dL (14.0-18.0); IG# 0.07 K/uL (0.00-0.02); LYMPH ABS # 1.05 K/uL (1.2-3.4); MEAN CELL VOLUME 89.4 fL (80-100); MEAN CORPUSCULAR HEMOGLOBIN 28.5 pg (25-34); MEAN CORPUSCULAR HGB CONC 31.9 g/dl (32-36); MEAN PLATELET VOLUME 8.8 fL (7.4-10.4); MONO % 13.3 %; NEUT % 70.6 %; NEUT ABS # 5.31 K/uL (1.4-6.5); PLATELET COUNT 161 K/uL (130-400); RED CELL DISTRIBUTION WIDTH CV 16.2 % (11.5-14.5); RED CELL DISTRIBUTION WIDTH SD 52.8 fL (36.4-46.3); WHITE BLOOD COUNT 7.52 K/uL (4.8-10.8)
[2017-11-13 05:59] LABS: CALCIUM 8.4 mg/dl (8.5-10.1); CREATININE 1.17 mg/dl (0.60-1.40); POTASSIUM 4.2 mmol/L (3.5-5.1)
[2017-11-13 07:10] LABS: HEMOGLOBIN A1C 6.2 % (4.5-5.6)
[2017-11-13] MEDS: OXYCODONE/ACETAMINOPHEN 5-325 TAB PO PRN (07:57)
[2017-11-13] MEDS: BOOST GLUCOSE CONTROL PO SCH ×2 (08:00→16:30)
--- NOTE | 2017-11-13 08:01 | Clinical Documentation Query ---
Dr. [facility] : CLINICAL DOCUMENTATION QUERY Patient is a 62 year old male admitted for evaluation of suprapubic pain and hematuria. Admitted with indwelling solano catheter and right nephrostomy tube. H&P documentation includes the followin/17- Uropsepsis 2/ Klebsiella + right ureteral stent exchange A port for chemo - started 09/25 - MVAC regimen 10/12 - obstructed- transferred to [facility] - received R Nephrostomy tube after failed restenting- + had disseminated fungal infection treated with Diflucan + C.diff- completed Vanc course 11/02- presented with lower abdominal pain- complicated Solano/catheter UTI" As appropriate, consider explicit documentation of the etiology of the UTI as this affects accurate DRG assignment. Thank you. In your clinical opinion is this patient being managed for: ( ) Solano catheter, right nephrostomy tube, and/or right ureteral stent associated UTI ( ) Not Agree ( ) Other explanation of clinical findings (Please Explain) ( ) Unable to determine (Please Define) ( ) Need to Discuss The medical record reflects the following clinical findings, treatment, and risk factors. Clinical Indicators: As above Treatment: Irrigate Solano, I/O, Ciprofloxacin, UA, C&S, Tamsulosin, Ditropan, Pyridium, Urology consultation Risk Factors: Indwelling urethral catheter, right nephrostomy tube, right ureteral stent. Please clarify and document your clinical opinion in the progress notes and discharge summary. Terms such as "probable", "suspected", "likely", "questionable", "possible", or "still to be ruled out" are acceptable. IF IN AGREEMENT, YOU MUST DOCUMENT ABOVE DIAGNOSTIC STATEMENT IN DAILY PROGRESS NOTES AND DISCHARGE SUMMARY. This document is not part of the patient's record. Thank You, Black Vera, RN [phone]
--- NOTE | 2017-11-13 08:01 | Clinical Documentation Query ---
QIANA Villatoro : CLINICAL DOCUMENTATION QUERY Patient is a 62 year old male admitted for evaluation of suprapubic pain and hematuria. Admitted with indwelling solano catheter and right nephrostomy tube. H&P documentation includes the followin/17- Uropsepsis 2/2 Klebsiella + right ureteral stent exchange A port for chemo - started 09/25 - MVAC regimen 10/12 - obstructed- transferred to [facility] - received R Nephrostomy tube after failed restenting- + had disseminated fungal infection treated with Diflucan + C.diff- completed Vanc course 11/02- presented with lower abdominal pain- complicated Solano/catheter UTI" As appropriate, consider explicit documentation of the etiology of the UTI as this affects accurate DRG assignment. Thank you. In your clinical opinion is this patient being managed for: (x ) Solano catheter, right nephrostomy tube, and/or right ureteral stent associated UTI ( ) Not Agree ( ) Other explanation of clinical findings (Please Explain) ( ) Unable to determine (Please Define) ( ) Need to Discuss The medical record reflects the following clinical findings, treatment, and risk factors. Clinical Indicators: As above Treatment: Irrigate Solano, I/O, Ciprofloxacin, UA, C&S, Tamsulosin, Ditropan, Pyridium, Urology consultation Risk Factors: Indwelling urethral catheter, right nephrostomy tube, right ureteral stent. Please clarify and document your clinical opinion in the progress notes and discharge summary. Terms such as "probable", "suspected", "likely", "questionable", "possible", or "still to be ruled out" are acceptable. IF IN AGREEMENT, YOU MUST DOCUMENT ABOVE DIAGNOSTIC STATEMENT IN DAILY PROGRESS NOTES AND DISCHARGE SUMMARY. This document is not part of the patient's record. Thank You, Black Vera, RN [phone]
[2017-11-13] MEDS: CITALOPRAM 20 MG TAB PO SCH (08:02)
[2017-11-13] MEDS: DOCUSATE SODIUM 100 MG CAP PO SCH ×2 (08:02→20:47)
[2017-11-13] MEDS: FLUCONAZOLE 100 MG TAB PO SCH (08:03)
[2017-11-13] MEDS: GABAPENTIN 600 MG TAB PO SCH ×2 (08:03→20:49)
[2017-11-13] MEDS: CHECK FENTANYL PATCH PLACEMENT SCH ×2 (08:04→16:32)
[2017-11-13] MEDS: CIPROFLOXACIN / D5W 400 MG in PREMIXED IN D5W 200 ML IV SCH (09:14)
--- NOTE | 2017-11-13 09:18 | Progress Note ---
Subjective Date of Service: Nov 13, 2017. Subjective Pt evaluation today including: conversation w/ patient, chart review, lab review Voiding: solano catheter in place (patent, draining clear, yellow urine ) Pt states he feels "lousy" this morning, but did not elaborate as his is primarily very upset this morning that he has not eaten. He states he is ready to leave on his own, and go to the cafeteria. He does not feel he is being treated well while here. C/o nausea from taking medications on an empty stomach, but denies vomiting. Denies abdominal pain at this time. Problem List Medical Problems: (1) Abdominal pain Status: Acute (2) Acute hyponatremia Status: Acute (3) Bladder neoplasm Status: Acute (4) Constipation Status: Acute (5) Fungal infection Status: Acute (6) Generalized weakness Status: Acute (7) Hematuria Status: Acute (8) Hypomagnesemia Status: Acute (9) Intractable abdominal pain Status: Acute (10) Suprapubic abdominal pain Status: Acute (11) Urinary tract infection associated with nephrostomy catheter Status: Acute (12) UTI (urinary tract infection) Status: Acute (13) UTI (urinary tract infection) Status: Acute Review of Systems Constitutional: No fever, No chills Respiratory: No shortness of breath Cardiac: No chest pain Abdomen: No pain, No nausea, No vomiting Male : No dysuria, No hematuria Heme: No abnormal bleeding/bruising Objective Vital Signs Date Time Temp Pulse Resp B/P (MAP) Pulse Ox O2 Delivery O2 Flow Rate FiO2 11/13/17 08:31 97 Room Air 11/13/17 07:54 36.8 61 18 120/72 (88) 97 Room Air 11/13/17 04:17 37.0 62 20 105/71 (82) 99 Room Air 11/13/17 00:00 Room Air 11/12/17 23:03 36.8 57 18 111/72 (85) 99 Room Air 11/12/17 20:00 Room Air 11/12/17 19:37 36.9 70 20 103/65 (78) 96 Room Air 11/12/17 15:35 36.6 54 18 119/76 (90) 99 Room Air 11/12/17 15:34 Room Air 11/12/17 11:33 36.6 53 18 119/73 (88) 97 Room Air Physical Exam General Appearance: + moderate distress (pt very angry this morning about not eating) Eyes: normal inspection ENT: hearing grossly normal Neck: no JVD Respiratory/Chest: no respiratory distress, no accessory muscle use Cardiovascular: no JVD Extremities: normal inspection Neurologic/Psychiatric: alert, normal mood/affect, oriented x 3 Skin: normal color Laboratory Results Last 24 Hours Test 11/13/17 05:25 White Blood Count 7.52 K/uL Red Blood Count 3.30 M/uL Hemoglobin 9.4 g/dL Hematocrit 29.5 % Mean Corpuscular Volume 89.4 fL Mean Corpuscular Hemoglobin 28.5 pg Mean Corpuscular Hemoglobin Concent 31.9 g/dl Platelet Count 161 K/uL Mean Platelet Volume 8.8 fL Neutrophils (%) (Auto) 70.6 % Lymphocytes (%) (Auto) 14.0 % Monocytes (%) (Auto) 13.3 % Eosinophils (%) (Auto) 0.9 % Basophils (%) (Auto) 0.3 % Neutrophils # (Auto) 5.31 K/uL Lymphocytes # (Auto) 1.05 K/uL Monocytes # (Auto) 1.00 K/uL Eosinophils # (Auto) 0.07 K/uL Basophils # (Auto) 0.02 K/uL RDW Standard Deviation 52.8 fL RDW Coefficient of Variation 16.2 % Immature Granulocyte % (Auto) 0.9 % Immature Granulocyte # (Auto) 0.07 K/uL Sodium Level 139 mmol/L Potassium Level 4.2 mmol/L Chloride Level 105 mmol/L Carbon Dioxide Level 27 mmol/L Anion Gap 7.0 mmol/L Blood Urea Nitrogen 19 mg/dl Creatinine 1.17 mg/dl Est Creatinine Clear Calc Drug Dose 70.9 ml/min Estimated GFR () 76.4 Estimated GFR (Non- 66.0 BUN/Creatinine Ratio 15.9 Random Glucose 100 mg/dl Estimated Average Glucose 131 mg/dl Hemoglobin A1c 6.2 % Calcium Level 8.4 mg/dl C-Reactive Protein 0.42 mg/dl Prealbumin 23.6 mg/dl Assessment and Plan A/P: Kate UTI, bladder cancer AFVSS. Will contact the pt's hospitalist in regards to NPO status. No surgical interventions planned this admission, and the pt may eat from our perspective. Continue fluconazole for Kate UTI for at least 5 days. Continue management of diverticulitis per primary service. Should not set back his cystectomy scheduled for 4-5 as long as he is adequately treated. Continue to plan for cystectomy on 4-5.
[2017-11-13] MEDS: OXYCODONE/ACETAMINOPHEN 10/325MG TAB PO PRN ×3 (11:41→23:44)
[2017-11-13] MEDS ORDERED: HYDROmorphone INJ 0.5 MG/0.5 ML SYR IV STA (14:32)
[2017-11-13] MEDS ORDERED: HYDROmorphone INJ 0.5 MG/0.5 ML SYR ONE (14:40)
--- NOTE | 2017-11-13 18:29 | Family Medicine Progress Note ---
Progress Note Date of Service Nov 13, 2017. Subjective Pt evaluation today including: conversation w/ patient, physical exam, chart review, lab review Voiding: solano catheter in place 62-year-old male with a past medical history of type 2 diabetes, hypertension with a recent diagnosis of urothelial bladder cancer status post TURBT, right ureteral stent and right nephrostomy tube presented with gross hematuria and suprapubic pain. Angry and upset this morning due to his n.p.o. status. States that he would walk out to the cafeteria to get his own food. Food was ordered and on recheck he denied any nausea, vomiting or worsening abdominal pain in the morning. Later in the afternoon, he complained of worsening left lower quadrant pain but no nausea or vomiting Constitutional: No fever, No chills Eyes: No worsening of vision ENT: No hearing loss Respiratory: No cough, No sputum Cardiovascular: No chest pain Abdomen: + pain, No nausea, No vomiting Musculoskeletal: No joint pain Male : + hematuria (resolved), No dysuria Heme: No abnormal bleeding/bruising Endo: No fatigue Medications Current Inpatient Medications Medications (Trade) Dose Ordered Sig/Young Route Start Time Stop Time Status Last Admin Dose Admin Acetaminophen (Tylenol Tab) 650 mg Q4H PRN PO 11/11/17 22:15 12/11/17 22:14 Al Hydrox/Mg Hydrox/Simethicone (Maalox Max Susp) 15 ml Q4H PRN PO 11/11/17 22:15 12/11/17 22:14 Magnesium Hydroxide (Milk Of Magnesia Susp) 30 ml Q6H PRN PO 11/11/17 22:15 12/11/17 22:14 Polyethylene (Miralax Powder Packet) 17 gm DAILY PRN PO 11/11/17 23:15 12/11/17 23:14 Ondansetron HCl (Zofran Inj) 4 mg Q6H PRN IV 11/11/17 22:15 12/11/17 22:14 Atorvastatin Calcium (Lipitor Tab) 80 mg QPM PO 11/12/17 21:00 12/12/17 20:59 11/12/17 21:31 80 MG Docusate Sodium (coLACE CAP) 100 mg BID PO 11/12/17 08:00 12/12/17 08:59 11/13/17 08:02 100 MG Fentanyl (Duragesic Patch) 75 mcg Q72H TD 11/14/17 09:00 11/28/17 08:59 Gabapentin (Neurontin Tab) 600 mg BID PO 11/12/17 08:00 12/12/17 08:59 11/13/17 08:03 600 MG Lactulose (Chronulac Syrup) 30 gm DAILY PRN PO 11/11/17 22:15 12/11/17 22:14 Oxybutynin Chloride (Ditropan Tab) 5 mg TID PRN PO 11/11/17 22:15 12/11/17 22:14 11/12/17 15:50 5 MG Phenazopyridine HCl (Pyridium Tab) 200 mg Q2D@0900 PO 11/12/17 09:00 12/12/17 08:59 11/12/17 09:16 200 MG Tamsulosin HCl (Flomax Cap) 0.4 mg QPM PO 11/12/17 21:00 12/12/17 20:59 11/12/17 21:31 0.4 MG Albuterol (Ventolin Hfa Inhaler) 2 puffs DAILY PRN INH 11/11/17 22:15 12/11/17 22:14 Citalopram Hydrobromide (celeXA TAB) 10 mg QAM PO 11/12/17 08:00 12/12/17 08:59 11/13/17 08:02 10 MG Miscellaneous (Fentanyl Patch Remove & Waste) 1 ea Q3D@0859 N/A 11/14/17 08:59 12/14/17 08:58 Miscellaneous Information (Check Fentanyl Patch Placement) 1 ea QS N/A 11/12/17 00:00 12/12/17 00:00 11/13/17 16:32 1 EA Heparin Sodium (Porcine) (Heparin 100 Unit/ml 5ml Flush) 5 ml PRN PRN IV 11/12/17 05:45 12/12/17 05:44 11/13/17 11:07 5 ML Fluconazole (Diflucan Tab) 100 mg QAM PO 11/13/17 08:00 11/22/17 07:59 11/13/17 08:03 100 MG Enteral Nutritional Formula (Boost Glucose Control) 1 can BIDM PO 11/13/17 08:00 12/13/17 07:59 11/13/17 16:30 1 CAN Oxycodone/ Acetaminophen (Percocet 10-325MG Tab) 1 tab Q4H PRN PO 11/13/17 11:00 11/27/17 10:59 11/13/17 16:31 1 TAB Ciprofloxacin (Cipro Tab) 500 mg Q12H PO 11/13/17 21:00 11/21/17 20:59 Metronidazole (Flagyl Tab) 500 mg TID PO 11/13/17 20:00 11/23/17 19:59 Objective Vital Signs Date Time Temp Pulse Resp B/P (MAP) Pulse Ox O2 Delivery O2 Flow Rate FiO2 11/13/17 16:00 98 Room Air 11/13/17 15:41 36.9 57 18 115/72 (86) 98 Room Air 11/13/17 11:50 36.9 56 18 128/76 (93) 99 Room Air 11/13/17 09:00 Room Air 11/13/17 08:31 97 Room Air 11/13/17 07:54 36.8 61 18 120/72 (88) 97 Room Air 11/13/17 04:17 37.0 62 20 105/71 (82) 99 Room Air 11/13/17 00:00 Room Air 11/12/17 23:03 36.8 57 18 111/72 (85) 99 Room Air 11/12/17 20:00 Room Air 11/12/17 19:37 36.9 70 20 103/65 (78) 96 Room Air Physical Exam General Appearance: WD/WN, no apparent distress ENT: hearing grossly normal Neck: supple Respiratory/Chest: lungs clear, normal breath sounds, no respiratory distress Cardiovascular: regular rate, rhythm Abdomen: soft, + tenderness (LLQ) Extremities: no pedal edema Neurologic/Psychiatric: alert, normal mood/affect, oriented x 3 Laboratory Results 11/13/17 05:25 Red Blood Count 3.30, Mean Corpuscular Volume 89.4, Mean Corpuscular Hemoglobin 28.5, Mean Corpuscular Hemoglobin Concent 31.9, Mean Platelet Volume 8.8, Neutrophils (%) (Auto) 70.6, Lymphocytes (%) (Auto) 14.0, Monocytes (%) (Auto) 13.3, Eosinophils (%) (Auto) 0.9, Basophils (%) (Auto) 0.3, Neutrophils # (Auto ) 5.31, Lymphocytes # (Auto) 1.05, Monocytes # (Auto) 1.00, Eosinophils # (Auto ) 0.07, Basophils # (Auto) 0.02 11/13/17 05:25 Test 11/13/17 05:25 White Blood Count 7.52 K/uL (4.8-10.8) Red Blood Count 3.30 M/uL (4.7-6.1) Hemoglobin 9.4 g/dL (14.0-18.0) Hematocrit 29.5 % (42-52) Mean Corpuscular Volume 89.4 fL (80-100) Mean Corpuscular Hemoglobin 28.5 pg (25-34) Mean Corpuscular Hemoglobin Concent 31.9 g/dl (32-36) Platelet Count 161 K/uL (130-400) Mean Platelet Volume 8.8 fL (7.4-10.4) Neutrophils (%) (Auto) 70.6 % Lymphocytes (%) (Auto) 14.0 % Monocytes (%) (Auto) 13.3 % Eosinophils (%) (Auto) 0.9 % Basophils (%) (Auto) 0.3 % Neutrophils # (Auto) 5.31 K/uL (1.4-6.5) Lymphocytes # (Auto) 1.05 K/uL (1.2-3.4) Monocytes # (Auto) 1.00 K/uL (0.11-0.59) Eosinophils # (Auto) 0.07 K/uL (0-0.5) Basophils # (Auto) 0.02 K/uL (0-0.2) RDW Standard Deviation 52.8 fL (36.4-46.3) RDW Coefficient of Variation 16.2 % (11.5-14.5) Immature Granulocyte % (Auto) 0.9 % Immature Granulocyte # (Auto) 0.07 K/uL (0.00-0.02) Anion Gap 7.0 mmol/L (3-11) Est Creatinine Clear Calc Drug Dose 70.9 ml/min Estimated GFR () 76.4 Estimated GFR (Non- 66.0 BUN/Creatinine Ratio 15.9 (10-20) Estimated Average Glucose 131 mg/dl Hemoglobin A1c 6.2 % (4.5-5.6) Calcium Level 8.4 mg/dl (8.5-10.1) C-Reactive Protein 0.42 mg/dl (0-0.29) Prealbumin 23.6 mg/dl (20-40) Assessment and Plan 62-year-old male with a past medical history of type 2 diabetes, hypertension with a recent diagnosis of urothelial bladder cancer status post TURBT, right ureteral stent and right nephrostomy tube presented with gross hematuria and suprapubic pain. Multiple admissions with hematuria/infections/obstruction Gross hematuria/urothelial bladder cancer/recurrent urinary tract infections: Hematuria is currently resolved -Urine culture growing Kate -Continue Diflucan 100 mg p.o. daily for 5 days. Today is day 2 -Continue tamsulosin, Ditropan, Pyridium -Cystoprostatectomy with ileal conduit scheduled in November -Pain control with fentanyl patch, Percocet increased to 10-325 every 4h Mild sigmoid diverticulitis: -Continue Flagyl and Cipro -Advance diet as tolerated Acute blood loss anemia: Secondary to hematuria -Hemoglobin at 9.4 status post 1 unit PRBC transfusion Diabetes mellitus type 2: Hemoglobin A1c at 6.2 Coronary artery disease: Aspirin held due to hematuria -Continue statin DVT prophylaxis: SCDs No chemical anticoagulation considering hematuria Full code Resident Physician Supervision Note: I interviewed and examined the patient. Discussed with Dr. Mon and agree with findings and plan as documented in the note. Any exceptions or clarifications are listed here: None Documented By: Jeferson Darden pain bad, stressed, upset d/w dtr as well vitals noted upset, appearing at least to a degree uncomfortable diverticulitis - change to PO abx, trial of diet solano cath/R nephrostomy tube/ureteral stent associated UTI - kate - diflucan , abx for diverticulitis stress response - discussed plans, expectations, and goals pain - increase meds otherwise as above Resident Tracking Resident Involvement: Resident Care Provided Care Provided: Adult [facility] Medicine
[2017-11-13] MEDS: METRONIDAZOLE 500 MG TAB PO SCH (20:47)
[2017-11-13] MEDS: TAMSULOSIN HCL 0.4 MG CAP PO SCH (20:49)
[2017-11-13] MEDS: ATORVASTATIN 40 MG TAB PO SCH (21:58)
[2017-11-13] MEDS: CIPROFLOXACIN 500 MG TAB PO SCH (21:58)
[2017-11-14] MEDS: CHECK FENTANYL PATCH PLACEMENT SCH ×2 (03:13→08:15)
[2017-11-14 04:11] VITALS: BP 115/76; PULSE 57; TEMP 37.3; O2SAT 97
[2017-11-14 05:47] LABS: BASO % 0.1 %; BASO ABS # 0.01 K/uL (0-0.2); EOS % 1.1 %; EOS ABS # 0.08 K/uL (0-0.5); HEMATOCRIT 29.5 % (42-52); HEMOGLOBIN 9.9 g/dL (14.0-18.0); IG# 0.05 K/uL (0.00-0.02); LYMPH % 13.9 %; LYMPH ABS # 0.97 K/uL (1.2-3.4); MEAN CELL VOLUME 88.6 fL (80-100); MEAN CORPUSCULAR HEMOGLOBIN 29.7 pg (25-34); MEAN CORPUSCULAR HGB CONC 33.6 g/dl (32-36); MEAN PLATELET VOLUME 8.6 fL (7.4-10.4); MONO ABS # 1.26 K/uL (0.11-0.59); NEUT % 66.2 %; NEUT ABS # 4.62 K/uL (1.4-6.5); PLATELET COUNT 147 K/uL (130-400); RED CELL DISTRIBUTION WIDTH CV 16.2 % (11.5-14.5); RED CELL DISTRIBUTION WIDTH SD 51.7 fL (36.4-46.3); WHITE BLOOD COUNT 6.99 K/uL (4.8-10.8)
[2017-11-14 06:19] LABS: CALCIUM 8.5 mg/dl (8.5-10.1); CREATININE 1.35 mg/dl (0.60-1.40); POTASSIUM 4.2 mmol/L (3.5-5.1)
[2017-11-14 07:24] VITALS: BP 120/75; PULSE 56; TEMP 36.7; O2SAT 96
[2017-11-14] MEDS: CIPROFLOXACIN 500 MG TAB PO SCH (08:14)
[2017-11-14] MEDS: DOCUSATE SODIUM 100 MG CAP PO SCH (08:14)
[2017-11-14] MEDS: METRONIDAZOLE 500 MG TAB PO SCH ×2 (08:14→14:15)
[2017-11-14] MEDS: GABAPENTIN 600 MG TAB PO SCH (08:14)
[2017-11-14] MEDS: PHENAZOPYRIDINE HCL 200 MG TAB PO SCH (08:15)
[2017-11-14] MEDS: FLUCONAZOLE 100 MG TAB PO SCH (08:15)
[2017-11-14] MEDS ORDERED: BOOST BREEZE NUTRITION DRINK 1 BOX PO ONE (08:18)
[2017-11-14] MEDS: BOOST GLUCOSE CONTROL PO SCH (08:24)
[2017-11-14] MEDS: OXYCODONE/ACETAMINOPHEN 10/325MG TAB PO PRN ×2 (08:25→12:40)
[2017-11-14] MEDS: CITALOPRAM 20 MG TAB PO SCH (08:25)
--- NOTE | 2017-11-14 08:39 | Progress Note ---
Subjective Date of Service: Nov 14, 2017. Subjective Pt evaluation today including: conversation w/ patient, chart review, lab review Voiding: solano catheter in place (patent, draining clear, yellow urine ) 62 yo male with bladder cancer. Pt states he feels "terrible" this morning. He c/o bladder and abdominal pain. Abdominal pain is worse after eating. Denies n/v. Reports regular BMs while inpatient. He is upset about his admission and being made NPO yesterday. He is upset that this visit has not gone the way he had hoped, and is anxious to have his surgery. He did become tearful during our visit today, and is concerned about anymore possible setbacks to his surgery. Problem List Medical Problems: (1) Abdominal pain Status: Acute (2) Acute hyponatremia Status: Acute (3) Bladder neoplasm Status: Acute (4) Constipation Status: Acute (5) Fungal infection Status: Acute (6) Generalized weakness Status: Acute (7) Hematuria Status: Acute (8) Hypomagnesemia Status: Acute (9) Intractable abdominal pain Status: Acute (10) Suprapubic abdominal pain Status: Acute (11) Urinary tract infection associated with nephrostomy catheter Status: Acute (12) UTI (urinary tract infection) Status: Acute (13) UTI (urinary tract infection) Status: Acute Review of Systems Constitutional: No fever, No chills Respiratory: No shortness of breath Cardiac: No chest pain Abdomen: + see HPI, + pain, No nausea, No vomiting, No constipation Male : No hematuria Heme: No abnormal bleeding/bruising Objective Vital Signs Date Time Temp Pulse Resp B/P (MAP) Pulse Ox O2 Delivery O2 Flow Rate FiO2 11/14/17 07:24 36.7 56 16 120/75 (90) 96 11/14/17 04:11 37.3 57 16 115/76 (89) 97 Room Air 11/14/17 00:00 Room Air 11/13/17 23:25 37.0 54 16 116/77 (90) 96 Room Air 11/13/17 19:52 36.7 54 18 112/71 (85) 98 Room Air 11/13/17 16:00 98 Room Air 11/13/17 15:41 36.9 57 18 115/72 (86) 98 Room Air 11/13/17 11:50 36.9 56 18 128/76 (93) 99 Room Air 11/13/17 09:00 Room Air 11/13/17 08:31 97 Room Air Physical Exam General Appearance: + mild distress Eyes: normal inspection ENT: hearing grossly normal Neck: no JVD Respiratory/Chest: no respiratory distress, no accessory muscle use Cardiovascular: no JVD Extremities: normal inspection Neurologic/Psychiatric: alert, oriented x 3 Skin: normal color Laboratory Results Last 24 Hours Test 11/14/17 05:35 White Blood Count 6.99 K/uL Red Blood Count 3.33 M/uL Hemoglobin 9.9 g/dL Hematocrit 29.5 % Mean Corpuscular Volume 88.6 fL Mean Corpuscular Hemoglobin 29.7 pg Mean Corpuscular Hemoglobin Concent 33.6 g/dl Platelet Count 147 K/uL Mean Platelet Volume 8.6 fL Neutrophils (%) (Auto) 66.2 % Lymphocytes (%) (Auto) 13.9 % Monocytes (%) (Auto) 18.0 % Eosinophils (%) (Auto) 1.1 % Basophils (%) (Auto) 0.1 % Neutrophils # (Auto) 4.62 K/uL Lymphocytes # (Auto) 0.97 K/uL Monocytes # (Auto) 1.26 K/uL Eosinophils # (Auto) 0.08 K/uL Basophils # (Auto) 0.01 K/uL RDW Standard Deviation 51.7 fL RDW Coefficient of Variation 16.2 % Immature Granulocyte % (Auto) 0.7 % Immature Granulocyte # (Auto) 0.05 K/uL Sodium Level 137 mmol/L Potassium Level 4.2 mmol/L Chloride Level 103 mmol/L Carbon Dioxide Level 29 mmol/L Anion Gap 6.0 mmol/L Blood Urea Nitrogen 22 mg/dl Creatinine 1.35 mg/dl Est Creatinine Clear Calc Drug Dose 61.5 ml/min Estimated GFR () 64.3 Estimated GFR (Non- 55.5 BUN/Creatinine Ratio 15.9 Random Glucose 105 mg/dl Calcium Level 8.5 mg/dl Assessment and Plan A/P: Kate UTI, bladder cancer AFVSS. I think the pt's varying anger and tearfulness are related to his anxiety surrounding his cancer, upcoming surgery, and lack of control over the situation. Ultimate goal at this time for the pt is to clear his UTI and diverticulitis and get him optimized for his cystectomy on 4-5. Continue fluconazole for Kate UTI for at least 5 days. Continue management of diverticulitis per primary service. Should not set back his cystectomy scheduled for 4-5 as long as he is adequately treated. Will do a pre-op type and screen while inpatient. Will consult anesthesia for pre-op clearance while inpatient. Will also consult the ostomy nurse for pre-op assessment. Will plan for the pt to start Boost supplementation daily as well pre-op through his cystectomy. Will consult nutrition services for assistance with this as well. Will continue to follow along with primary service.
[2017-11-14] MEDS ORDERED: FENTANYL PATCH REMOVE & WASTE SCH (08:59)
[2017-11-14] MEDS ORDERED: FENTANYL 75 MCG/HR TDSY TD SCH (09:00)
[2017-11-14] MEDS ORDERED: NURSING VERBAL MED ORDER ONE (09:00)
[2017-11-14] MEDS ORDERED: PSYLLIUM 58.6% PWD PACK S\\F PO ONE (09:45)
[2017-11-14 11:17] VITALS: BP 119/83; PULSE 63; TEMP 37.4; O2SAT 96
[2017-11-14] MEDS ORDERED: PSYLLIUM 58.6% PWD PACK S\\F PO SCH (12:00)
[2017-11-14] MEDS ORDERED: NRN600 PO (13:44)
[2017-11-14] MEDS ORDERED: OXYC-88 PO (13:44)
[2017-11-14] MEDS ORDERED: MTR500 PO (13:44)
[2017-11-14] MEDS ORDERED: CPR500 PO (13:44)
[2017-11-14] MEDS ORDERED: NUTR-7 PO (13:44)
[2017-11-14] MEDS ORDERED: DFL100 PO (13:44)
--- NOTE | 2017-11-14 13:51 | Discharge Instructions ---
Discharge Instructions Date of Service Nov 14, 2017. Admission Reason for Admission: Diverticulitis, Gross Hematuria Discharge Discharge Diagnosis / Problem: see below Discharge Goals Goal(s): Diagnostic testing, Therapeutic intervention Activity Recommendations Activity Limitations: resume your previous activity . Instructions / Follow-Up Instructions / Follow-Up a) diverticulitis -this is a bacterial infection of the wall of your colon. this typically takes a few weeks to totally resolve, and we'll need to finish out a 10 more day course of treatment with two antibiotics - ciprofloxacin twice a day, and metronidazole three times a day -- your next dose of both should be at bedtime tonight -the left lower abdominal pain from the diverticulitis can sometimes take a few weeks to get better, typically it'll be worst about an hour to a few hours after eating (as the wave of contractions set off by eating reaches the infected part of the colon b) yeast infection of the bladder -because your bladder is compromised right now, it's easily susceptible to infections - there was yeast (liang) growing in it this time -the antifungal ( fluconazole) is to treat this - it's once a day for 8 more days -- next dose tomorrow c) pain -while the diverticulitis pain will improve over the next few weeks, obviously the pain as it relates to the cancer and the bladder will be a longer term thing that needs ongoing management- -we've kept the fentanyl patch dose the same at 75mcg, change every three days -we increased the gabapentin to 600mg three times a day -we've increased the percocet back to 10/325mg up to four times a day as needed for breakthrough pain (pain that happens on top of the other pain meds you're taking) -since the pain medication obviously be constipating, stay on top of your bowel regimen (with a goal of at least a bowel movement a day) so that you don' t have pain from constipation added to the mix -----if the pain continues, Dr Westbrook can make any number of changes to help, such as increasing the fentanyl patch to a higher dose, or as we discussed, possibly changing your celexa to something like effexor or amitryptilline, which are in the antidepressant family of medications, but in different classes than the celexa, and often do a better job of modifying how your brain perceives pain Current Hospital Diet Patient's current hospital diet: Regular Diet Discharge Diet Recommended Diet: Regular Diet Pending Studies Studies pending at discharge: no Laboratory Results Hemoglobin A1c Test 11/13/17 05:25 Range/Units Estimated Average Glucose 131 mg/dl Hemoglobin A1c 6.2 H 4.5-5.6 % Medical Emergencies . Who to Call and When: Medical Emergencies: If at any time you feel your situation is an emergency, please call 911 immediately. . Non-Emergent Contact Non-Emergency issues call your: Primary Care Provider, Urologist . . "Provider Documentation" section prepared by Jeferson Darden. .
[2017-11-14] MEDS ORDERED: GABAPENTIN 600 MG TAB PO SCH (14:00)
--- NOTE | 2017-11-14 14:00 | Anesthesiology Progress Note ---
Anesthesia Progress Note Date of Service Nov 14, 2017. Progress Notes Asked to see patient regarding his upcoming robotic cystectomy surgery. Admitted due to diverticulitis which they are treating currently. Past history of HTN, DM and CAD including a stent placed in his RCA in 2015. He lost weight and no longer requires medicine for DM, and since his stent placement has done very well and has preserved LV function. No problems with anesthesia in the past. At this point I don't see any contraindications to his surgery once his diverticulitis is cleared up.
[2017-11-14 14:03] VITALS: BP 119/83; PULSE 63; TEMP 37.4; O2SAT 96
[2017-11-14 15:28] VITALS: BP 126/75; PULSE 62; TEMP 37.3; O2SAT 99
--- NOTE | 2017-11-15 05:48 | Discharge Summary ---
Discharge Summary Date of Service Nov 15, 2017. Discharge Summary Admission Date: Nov 11, 2017 at 22:15 Discharge Date: Nov 14, 2017 Discharge Disposition: Home Principal Diagnosis: Gross hematuria, mild sigmoid diverticulitis Problems/Secondary Diagnoses: bladder cancer, candidal UTI Procedures: [~ rep ct add3]] ABD/PELVIS WITHOUT FOR STONE CT DOSE: 1366.29 mGy.cm HISTORY: Pain. right nephrostomy and solano due to bladder ca. ? obstruction TECHNIQUE: Multiaxial CT images of the abdomen and pelvis were performed without the use of intravenous and oral contrast according to the standard department stone protocol. A dose lowering technique was utilized adhering to the principles of ALARA. COMPARISON STUDY: 10/30/2017 FINDINGS: Right lung bases clear. Left lung base shows minimal atelectatic and or nodular change unaltered from the prior study. Configuration of liver is unremarkable. There is a right-sided process we catheter. Several punctate nonobstructing right renal calcifications are present. No evidence for hydronephrosis on the right or left. The right-sided stent passes to the bladder. Asymmetric bladder wall thickening persists. Mild pericystic infiltrative changes stable. Findings of chronic sigmoid diverticulosis with slight increase in bowel wall thickening and pericolic infiltrative change. Acute diverticulitis is felt to be present. No evidence for abscess collection or obstruction. Bowel pattern again is nonobstructive. IMPRESSION: 1. Placement of a right nephrostomy catheter with the catheter appearing to be in good position. 2. Unchanging focal wall thickening of the bladder on the right with mild pericystic infiltrative change also unaltered. 3. No evidence for hydronephrosis. 4. No evidence for an obstructing urinary tract calculus. Several nonobstructing renal cortical calcifications bilaterally. 5. Mild sigmoid diverticulitis. 6. No evidence for abscess collection or bowel obstructive change. The above report was generated using voice recognition software. It may contain grammatical, syntax or spelling errors. Electronically signed by: Wil Waldrop M.D. 11/11/2017 8:34 PM Dictated Date/Time: 11/11/2017 8:29 PM Consultations: Urology, anesthesiology Medication Reconciliation New Medications: Ciprofloxacin (Ciprofloxacin HCl) 500 Mg Tab 500 MG PO Q12H, #20 TAB Fluconazole (Fluconazole) 100 Mg Tab 100 MG PO QAM for 8 Days, #8 TAB Gabapentin (Gabapentin) 600 Mg Tab 600 MG PO TID, #90 TAB Metronidazole (Metronidazole) 500 Mg Tab 500 MG PO TID, #30 TAB Nutritional Supplements (Boost) 1 Liq Liq 1 CAN PO BIDM, #90 BTL Oxycodone/Acetaminophen 10MG/325MG (Oxycodone/Acetaminophen 10MG/325MG) 1 Tab Tab 1 TAB PO Q4H PRN for Pain, #90 TAB Continued Medications: Albuterol Sulfate (Proair Respiclick) 108 Mcg/Act Aer 2 PUFFS INH UD PRN for SOB/Wheezing Aspirin (Aspirin Ec) 81 Mg Tab 81 MG PO QAM Atorvastatin (Lipitor) 80 Mg Tab 80 MG PO QPM Citalopram Hydrobromide (Citalopram Hydrobromide) 10 Mg Tab 10 MG PO QAM Docusate Sodium (Docusate Sodium) 100 Mg Cap 100 MG PO BID for 30 Days, CAP Fentanyl (Duragesic) 75 Mcg Tdsy 75 MCG TD Q72H, #10 Lactulose (Lactulose) 30 Gm/45 Ml Syrp 30 GM PO DAILY PRN for Constipation, #1 BTL Ondansetron Odt (Zofran Odt) 8 Mg Soltab 4 MG SL Q8 PRN for Nausea, TAB Oxybutynin Chloride (Ditropan) 5 Mg Tab 5 MG PO TID PRN for Bladder pain Phenazopyridine HCl (Pyridium) 200 Mg Tab 200 MG PO QOD Polyethylene (Miralax) 17 Gm Pow 17 GM PO DAILY for 30 Days, #1 BTL OTC Psyllium (Metamucil Fiber) 51.7 % Db 1 PKT PO DAILY Tamsulosin Hcl (Flomax) 0.4 Mg Cap 0.4 MG PO QPM [Protein Drink] () 1 PO DAILY Discontinued Medications: Gabapentin (Gabapentin) 600 Mg Tab 600 MG PO AMPM Nitrofurantoin Monohyd Macrocr (Macrobid) 100 Mg Cap 100 MG PO HS for 14 Days, #14 CAP TO START AFTER COMPLETION OF COURSE OF CIPRO FOR PREVENTION OF UTI Discharge Exam LLQ appeared to have improved. Had been tolerating his diet without Nausea, vomiting. Hematuria has fully resolved Review of Systems: Constitutional: No fever, No chills Eyes: No worsening of vision ENT: No hearing loss Respiratory: No cough Cardiovascular: No chest pain Abdomen: + pain (mild lower left quadrant pain. ), No nausea, No vomiting Neurologic: No memory loss, No paralysis Physical Exam: General Appearance: WD/WN, no apparent distress Eyes: normal inspection ENT: hearing grossly normal Neck: supple Respiratory/Chest: lungs clear, normal breath sounds, no respiratory distress Cardiovascular: regular rate, rhythm Abdomen / GI: normal bowel sounds, soft, + tenderness (LLQ) Extremities: no pedal edema, normal range of motion Neurologic/Psychiatric: alert, normal mood/affect, oriented x 3 Hospital Course 62-year-old male with a past medical history of diet-controlled diabetes mellitus type 2, coronary artery disease, hypertension and recent diagnosis of urothelial bladder cancer post TURBT and right ureteral stent with chronic Soalno presented with gross hematuria and suprapubic abdominal pain. He also complained of nausea and chills. He was recently admitted and found to have a complicated UTI with pansensitive Klebsiella Brief history: Diagnosis of invasive bladder CA s/p TURBT and R ureteral stent 09/13- Uropsepsis 09/29 Klebsiella + right ureteral stent exchange A port for chemo - started 09/25 - MVAC regimen 10/12 - obstructed- transferred to [facility] - received R Nephrostomy tube after failed restenting- + had disseminated fungal infection treated with Diflucan + C.diff- completed Vanc course 11/02- presented with lower abdominal pain- complicated Solano/catheter UTI Abdominal CT pelvis was ordered which revealed unchanging focal thickening of the bladder wall and mild sigmoid diverticulitis. He was also found to have Kate growing in his urine and was treated with a 5 day course of Diflucan. He was also treated with ciprofloxacin and metronidazole for diverticulitis. He is scheduled to have a cystectomy in November and was discharged in stable condition after resolution of his hematuria. He was discharged with a 10 day course of Cipro and metronidazole. He also had a preop evaluation performed by anesthesiology for his surgery. His pain medications have been increased to Percocet 10-325 every 4-6 hours as needed along with fentanyl patch. His gabapentin dosage was also increased to 600 mg 3 times daily. Consider changing his Celexa to SNR I/TCA for better pain modulation Total Time Spent: Greater than 30 minutes This includes examination of the patient, discharge planning, medication reconciliation, and communication with other providers. Discharge Instructions Please refer to the electronic Patient Visit Report (Discharge Instructions) for additional information. Follow-Up Follow-up with urology Follow up with PCP in about a week Additional Copies To Vasyl Westbrook D.O. Resident Tracking Resident Involvement: Resident Care Provided Care Provided: [facility] Medicine
[2017-11-15] MEDS ORDERED: BOOST BREEZE NUTRITION DRINK 1 BOX PO SCH (08:00)
== END 2017-11-14 15:56 | disposition home or self-care (01) | DRG 699 ==
LOC: C.EDB 18:45 → C.4E 22:15 → ENRESERV 22:28
PROVIDERS: ADMIT Internal Medicine; ATTEND Family Medicine
PROC: 0T9B70Z Drainage of Bladder with Drainage Device, Via Natural or Artificial Opening (ICD-10-PCS; principal; 2017-11-11)
DX: T83.511A Infection and inflammatory reaction due to indwelling urethral catheter, initial encounter (principal); D62 Acute posthemorrhagic anemia; B37.49 Other urogenital candidiasis; K57.32 Diverticulitis of large intestine without perforation or abscess without bleeding; C67.9 Malignant neoplasm of bladder, unspecified; R31.0 Gross hematuria; Z96.0 Presence of urogenital implants; Z93.6 Other artificial openings of urinary tract status; E11.9 Type 2 diabetes mellitus without complications; I25.10 Atherosclerotic heart disease of native coronary artery without angina pectoris; G89.29 Other chronic pain; Z87.440 Personal history of urinary (tract) infections; Z87.891 Personal history of nicotine dependence; Z79.2 Long term (current) use of antibiotics; Z79.82 Long term (current) use of aspirin; Z79.891 Long term (current) use of opiate analgesic; Z79.899 Other long term (current) drug therapy; Z83.3 Family history of diabetes mellitus

== ENCOUNTER → 2017-11-24 | Day surgery (SDC) | payer OTHER ==
[~2017-11-24] MED LIST changes: +DFL100 PO; -LCTL45 PO; -METO25TA56 PO; -MTML PO; +MTR500 PO; -NITR-5 PO; -NRN300 PO; +PSYL58.636 PO
== END | disposition home or self-care (01) ==
LOC: C.ACU 10:28
PROVIDERS: ATTEND Surgery
DX: Z01.89 Encounter for other specified special examinations (principal)

== ENCOUNTER 2017-11-30 06:29 | Inpatient (IN) | payer OTHER ==
[2017-08-29 09:49] VITALS: BMI 32.0
--- NOTE | 2017-08-29 10:27 | PAT Medication Instructions ---
Service Date Aug 29, 2017. Current Home Medication List Albuterol Sulfate (Proair Respiclick), 2 PUFFS INH UD PRN for SOB/Wheezing Aspirin (Aspirin Ec), 81 MG PO QAM Atorvastatin (Lipitor), 80 MG PO QPM Gabapentin (Neurontin), 300 MG PO QPM Glimepiride (Glimepiride), 4 MG PO BID Lisinopril (Zestril), 5 MG PO QAM Metformin Hcl (Glucophage Er), 750 MG PO BID Metoprolol Tartrate (Lopressor) (Lopressor), 25 MG PO Q12 Oxycodone Ir (Roxicodone Ir), 1-2 TAB PO Q4H PRN for Severe Pain Repaglinide (Prandin), 0.5 MG PO QAM Sitagliptin (Januvia), 100 MG PO QAM Sulfamethoxazole-Trimethoprim (Bactrim Ds 800MG/160MG), 1 TAB PO BID Medication Instructions For Your Scheduled Surgery Continue as directed: Sulfamethoxazole-Trimethoprim (Bactrim Ds 800MG/160MG), 1 TAB PO BID - Hold the following medications 48 hours prior to surgery: Metformin Hcl (Glucophage Er), 750 MG PO BID - Hold the following medications the morning of surgery: Repaglinide (Prandin), 0.5 MG PO QAM Sitagliptin (Januvia), 100 MG PO QAM Lisinopril (Zestril), 5 MG PO QAM Glimepiride (Glimepiride), 4 MG PO BID - Take the following medications the morning of surgery with a sip of water: Aspirin (Aspirin Ec), 81 MG PO QAM (OK per surgeon) Albuterol Sulfate (Proair Respiclick), 2 PUFFS INH UD PRN for SOB/Wheezing (if needed) Metoprolol Tartrate (Lopressor) (Lopressor), 25 MG PO Q12 Oxycodone Ir (Roxicodone Ir), 1-2 TAB PO Q4H PRN for Severe Pain (if needed, can be taken up to four hours before surgery) - Take the following medications as scheduled the night before surgery: Albuterol Sulfate (Proair Respiclick), 2 PUFFS INH UD PRN for SOB/Wheezing (if needed) Atorvastatin (Lipitor), 80 MG PO QPM Gabapentin (Neurontin), 300 MG PO QPM Glimepiride (Glimepiride), 4 MG PO BID Metoprolol Tartrate (Lopressor) (Lopressor), 25 MG PO Q12 Oxycodone Ir (Roxicodone Ir), 1-2 TAB PO Q4H PRN for Severe Pain (if needed) If you have any questions please call us at [phone] or [phone] or [phone]
[2017-08-29 11:28] LABS: BASO % 0.2 %; BASO ABS # 0.02 K/uL (0-0.2); EOS ABS # 0.12 K/uL (0-0.5); HEMATOCRIT 39.3 % (42-52); HEMOGLOBIN 13.5 g/dL (14.0-18.0); LYMPH % 12.6 %; LYMPH ABS # 1.46 K/uL (1.2-3.4); MEAN CELL VOLUME 92.3 fL (80-100); MEAN CORPUSCULAR HEMOGLOBIN 31.7 pg (25-34); MEAN CORPUSCULAR HGB CONC 34.4 g/dl (32-36); MEAN PLATELET VOLUME 9.8 fL (7.4-10.4); MONO ABS # 0.81 K/uL (0.11-0.59); NEUT % 78.3 %; NEUT ABS # 9.07 K/uL (1.4-6.5); PLATELET COUNT 257 K/uL (130-400); RED CELL DISTRIBUTION WIDTH CV 12.6 % (11.5-14.5); RED CELL DISTRIBUTION WIDTH SD 42.2 fL (36.4-46.3); WHITE BLOOD COUNT 11.58 K/uL (4.8-10.8)
[2017-10-05 09:03] VITALS: BMI 29.0
[2017-11-17 09:25] VITALS: BMI 27.0
[~2017-11-30] VITALS: Ht 182.9 cm; Wt 92.2 kg
[2017-11-30] VITALS (10 sets, daily range): BP systolic 128–171; BP diastolic 60–85; PULSE 56–91; TEMP 36.4–37.1; O2SAT 94–100; BMI 28.0
[~2017-11-30 06:29] MED LIST changes: +ACETAMINOPHEN IV 1000MG/100ML IV SCH; +CEFAZOLIN SOD 1000MG/7.5 ML IV PUSH IV ONE; +CEFOXITIN IV 2,000 MG in DEXTROSE 5% 50ML 50 ML IV SCH; +CIPROFLOXACIN / D5W 400 MG IV SCH; +CIPROFLOXACIN 400MG / D5W IV SCH; +FENTANYL CITRATE INJ 50 MCG/1 ML 2 ML VIAL ONE; +HEPARIN SOD 5000 UNIT/0.5 ML CARP SQ SCH; +LACTATED RINGER'S 1000ML 1,000 ML IV SCH; +LIDOCAINE HCL 2% 2 ML VIAL (20MG/ML) ONE; +MIDAZOLAM HCL 1 MG/ML 2ML VIAL ONE; +PROPOFOL IV EMULSION 10 MG/ML 20 ML VIAL IV ONE
[2017-11-30] MEDS ORDERED: FENTANYL CITRATE INJ 50 MCG/1 ML 2 ML VIAL ONE ×6 (07:55→18:35)
[2017-11-30] MEDS ORDERED: MIDAZOLAM HCL 1 MG/ML 2ML VIAL ONE ×2 (07:55→18:06)
[2017-11-30] MEDS ORDERED: HYDROmorphone INJ 2 MG/ML SYR/VIAL ONE ×2 (07:55→10:15)
[2017-11-30] MEDS ORDERED: ACETAMINOPHEN 1000 MG/100 ML IV IV ONE ×2 (07:59→14:16)
[2017-11-30] MEDS ORDERED: KETAMINE HCL INJ 50 MG/ML 10 ML VIAL ONE (07:59)
[2017-11-30] MEDS ORDERED: ALBUMIN HUMAN 5% 12.5 GM/250 ML VIAL IV ONE (07:59)
[2017-11-30] MEDS ORDERED: BUPIVACAINE 0.5 % 5 MG/1 ML MPF 30ML VIAL ONE (09:03)
[2017-11-30] MEDS ORDERED: DEXAMETHASONE SOD INJ 4 MG/ML VIAL ONE (09:36)
[2017-11-30] MEDS ORDERED: GLYCOPYRROLATE INJ 0.2 MG/ML VIAL ONE (09:36)
[2017-11-30] MEDS ORDERED: PROPOFOL IV EMULSION 10 MG/ML 20 ML VIAL IV ONE (09:36)
[2017-11-30] MEDS ORDERED: PHENYLEPHRINE 100MCG/ML 5ML SYR ONE (09:36)
[2017-11-30] MEDS ORDERED: ONDANSETRON INJ 2 MG/ML 2 ML VIAL ONE (09:36)
[2017-11-30] MEDS ORDERED: EpHEDrine SULFATE 50MG/5ML SYR ONE (09:36)
[2017-11-30] MEDS ORDERED: NEOSTIGMINE METHYLSULFATE 5 MG/5 ML SYR ONE (09:36)
[2017-11-30] MEDS ORDERED: LIDOCAINE HCL 2% 2 ML VIAL (20MG/ML) ONE (09:36)
[2017-11-30] MEDS ORDERED: FENTANYL CITRATE INJ 50 MCG/1 ML 2 ML VIAL IV PRN (10:30)
[2017-11-30] MEDS ORDERED: LABETALOL HCL IV 5 MG/ML 20ML IV PRN (10:30)
[2017-11-30] MEDS ORDERED: EpHEDrine SULFATE INJ 50 MG/ML AMP IV PRN (10:30)
[2017-11-30] MEDS ORDERED: MEPERIDINE HCL 25 MG/ML CARP IV PRN (10:30)
[2017-11-30] MEDS ORDERED: ONDANSETRON INJ 2 MG/ML 2 ML VIAL IV PRN (10:30)
[2017-11-30] MEDS ORDERED: HYDROmorphone INJ 1 MG/ML SYR IV PRN (10:30)
[2017-11-30] MEDS ORDERED: ATROPINE SULFATE 0.1 MG/ML 5ML SYR IV PRN (10:30)
[2017-11-30] MEDS ORDERED: CEFOXITIN SOD 1 GM VIAL ONE (11:28)
[2017-11-30] MEDS ORDERED: SURGICEL ABSORB HEMOSTAT 2IN X 14IN TOP ONE (13:52)
[2017-11-30] MEDS ORDERED: FLOSEAL HEMOSTATIC MATRIX 10ML TOP ONE (17:18)
[2017-11-30] MEDS: SODIUM CHLORIDE 0.9% 1000ML 1,000 ML IV SCH (17:35)
[2017-11-30] MEDS ORDERED: FAMOTIDINE IV INJ 20 MG in DEXTROSE 5% 100ML 100 ML IV SCH (17:45)
[2017-11-30] MEDS ORDERED: NALOXONE HCL 0.4 MG/1 ML VIAL/CARP IV PRN (17:45)
--- NOTE | 2017-11-30 17:54 | [facility] Post Operative Brief Note ---
Immediate Operative Summary Operative Date Nov 30, 2017. Pre-Operative Diagnosis Muscle Invasive Bladder Cancer Post-Operative Diagnosis Same Procedure(s) Performed 1, Robot Assisted Laparoscopic Radical Cystoprostatectomy 2. Bilateral Extended Pelvic Lymph Node Dissection 3. Ileal Conduit Diversion Surgeon Lio GANDARA Professor Of Journalism Surgeon(s) Alonzo STRINGER, Yordy BUENO Estimated Blood Loss 1200 Findings Consistent with Post-Op Diagnosis Specimens 1. Distal Right Ureter Segment 2. Distal Left Ureter Segment 3. Right Pelvic Lymph Nodes 4. Left Pelvic Lymph Nodes 5. Radical Prostate and bladder. Drains 19 Fr Flat TRISH Drain. Bilateral 7 Fr Diversion stent. Ostomy appliance Anesthesia Type General Complication(s) none Disposition Disposition: Recovery Room / PACU
[2017-11-30] MEDS ORDERED: CEFOXITIN 2000MG/60 ML D5W IV SCH (18:00)
[2017-11-30 18:34] LABS: ISTAT CREATININE 1.5 mg/dl (0.6-1.3); ISTAT IONIZED CALCIUM 1.11 mmol/l (1.12-1.32)
[2017-11-30 18:34] LABS: ISTAT CREATININE 1.4 mg/dl (0.6-1.3); ISTAT IONIZED CALCIUM 1.11 mmol/l (1.12-1.32)
[2017-11-30] MEDS ORDERED: PROPOFOL IV EMULSION 10 MG/ML 100 ML VIAL IV ONE (18:36)
[2017-11-30] MEDS ORDERED: PROPOFOL IV EMULSION 10 MG/ML 100 ML VIAL IV STA ×2 (18:36→20:44)
[2017-11-30] MEDS ORDERED: ALBUTEROL HFA 8 GM INHALER INH PRN (18:45)
--- NOTE | 2017-11-30 18:48 | [facility] Operative Report ---
Operative Report Operative Date Nov 30, 2017. Pre-Operative Diagnosis Muscle Invasive Bladder Cancer Post-Operative Diagnosis Same Procedure(s) Performed 1. Robot Assisted Radical Cystoprostatectomy 2. Bilateral Extended Pelvic Lymph Node Dissection 3. Ileal Conduit Urinary Diversion Surgeon Lio GANDARA [employer] Dealer Surgeon(s) Alonzo STRINGER, Yordy BUENO Estimated Blood Loss 1200cc Findings Moderate hydroureteronephrosis of the right kidney. No abnormal masses. Specimens 1. Distal Right Ureter Segment 2. Distal Left Ureter Segment 3. Right Pelvic Lymph Nodes 4. Left Pelvic Lymph Nodes 5. Radical Bladder and Prostate Drains 19 Fr Flat TRISH drain. Bilateral 7 Fr Diversion Stents. Ostomy appliance. Anesthesia Type General Complication(s) none Disposition Surgical ICU (Patient remained intubated and sedated. ) Indications Muscle Invasive Bladder Cancer with obstruction of right ureter. Patient tolerated Neoadjuvant Chemotherapy and is prepared for Radical Cystectomy. Risks and benefits discussed at length. Description of Procedure The patient was brought to the operative suite and placed under general endotracheal intubation anesthesia in the supine position. The patient was transferred to the dorsal lithotomy position. At this point, the patient prepped and draped in the usual sterile fashion and a timeout was completed. Preoperative antibiotics of Mefoxin 2 grams had been given. The patient also received a dose of SQ Heparin and MAXIMO's and SCD's were placed on the patient's lower extremities. A catheter was placed using sterile technique. Patient prior to surgery was marked by Stoma Nursing for ostomy creation. With the time out completed the patient was placed into Trendelenburg and the skin at the umbilicus was anesthetized. A small midline incision was made at the anterior umbilicus. A Veress needle was placed. A aspiration and irrigation of the needle confirmed placement and insufflation was initiated of the abdominal cavity. The cavity was insufflated to 12mmHG. A 12mm camera port was placed and the abdominal cavity inspected. No concerning features were noted. At this point, the skin was marked for port placement and 8mm working ports were placed. The skin was anesthetized down to fascia and an approx 1cm incision was made to place the 3 x 8mm ports. A 10mm and 5 mm production assistant ports were also placed in similar fashion under direct visualization. During the case the production assistant port was changed to a 15mm port in order to place bag. The patient was transferred into steep Trendelenburg position and the legs lowered. The robot was positioned and docked. The camera was placed and all trocars were positioned under direct visualization. Paula Yordy was integral in port placement, camera utilization, and docking procedure. She remained in sterile attire and then proceeded to assist the remainder of the case. Dr. Rosado was also scrubbed and actively assisted during smiley portions of the proceeding procedure. At this point, I transitioned to the robotic console. The right ureter was identified as it coursed over the iliac vessels and the peritoneum opened. Care was taken to dissect the ureter and periureteric tissues with minimal manipulation. The ureter was mobilized down to the junction with the bladder. A hemolock clip was placed followed by a mor proximal clip with a white vicryl suture tag. The ureter was cut and a distal segment was sent for pathologic analysis. The Left ureter was identified in the same fashion. Adhesions of the sigmoid colon were released and the colon mobilized medially to facilitate identification of the ureter on the left. The ureter was dissected again attempting minimal manipulation and preservation of periureteric tissues. This was clip distally at the junction with the bladder and a proximal clip with a dyed vicryl suture tag was placed. A distal segment was sent for frozen immediate assessment. At this point, the sigmoid colon was mobilized superiorly and the pelvis assessed. The peritoneum in the midline was opened between rectum and bladder and the seminal vesicles exposed. These were dissected with blunt technique. Cautery was used to assist dissection avoiding the tissue posteriorly near the rectum. The lateral vesicles were clipped with a hemolock and all bleeding controlled. This was taken as inferior as possible from this position. The peritoneum was the incised from the midline opening to the opening from mobilization of the ureter. This allowed exposure of the vas deferens back along its course. The medial umbilical ligaments were then identified and the peritoneum directly lateral on the right followed by the left was opened. The tissues were bluntly dissected to free the bladder's lateral attachments. This was taken down to the pubic bone and exposed the endopelvic fascia bilaterally. Care was taken to maintain the attachment of the ligaments to suspend the bladder for the next portions of the procedure. Dissection of the bladder pedicles on the right began. The vas was clipped and cut and mobilized. The pedicle was exposed. The robotic vessel sealing ligation device was exchanged for the robotic scissors. The pedicles were dissected and all vessels identified during dissection were ligated with vessel sealing device. The are was assessed and no bleeding or other issues were noted. The left vas deferens was then dissected and cut. The left bladder pedicle was similarly dissected, identified, sealed/ligated, cut, and inspected. No issues or bleeding were noted. Dissection was taken inferiorly. The posterior dissection took an extended period of time in order to insure safe and complete dissection. The endopelvic fascia on each side was then opened and the lateral edges of the prostate dissected. The medial ligaments were ligated and cut and the median attachments released with blunt dissection of the anterior tissues. The Dorsal venous complex of the prostate was dissected and assessed. A 2-0 suture was used to ligate the vessels. Electrocautery was used to cut the anterior attachments, the puboprostatic ligaments, and venous tissues. The anterior prostate was released and the urethra exposed. This was dissected. A hemolock clip was placed on the catheter at the proximal urethra after the urethra was opened and the catheter exposed. The catheter clipped with a hemolock was then cut. All bleeding was controlled. The posterior prostate was dissected. An attempt was made to limit cautery and utilize cold dissection of the lateral posterior prostate to attempt preservation of the neurovascular bundle bilaterally. The vessels were sealed at the prostatic pedicle bilaterally. The bladder and prostate was then placed in an endoscopic bag and secured. The urethral stump was suture with a 2-0 vicryl figure of eight suture to close the urethral stump. The entire dissection bed was inspected. Sterile water irrigation was completed. Hemostatic agent was placed in the region. No areas of injury or bleeding was noted. Care was taken to examine the perirectal tissues. A rectal probe was placed and no obvious injure was observed. The right and left pelvic lymph tissue was identified in relation to the iliac vessels. Distal dissection was taken to the Node of [place]. Inferiorly the obturator vessels and nerve were identified. Lymphatic tissue within the surround fat tissue was dissected. The medial/anterior tissue was taken to the bifurcation of the IVC. This packet of tissues were sent for pathologic analysis and lymph node assessment with lymph node count. This was done for each separate side. Hemostatic agent was placed on the exposed skeletonized vessels. The ureter on the left was proximally dissected. Lateral to the sigmoid colon as well as medially a small opening was created to allow transposition of the ureter from the left. The ureter was passed posterior to the sigmoid/descending colon. The suture material from the right and left tagged ureter were then secured into the production assistant port. The entire dissection space was inspected one final time. No bleeding or injuries or areas of concern were noted. Geo-seal hemostatic agent was placed into the pelvis. No tumor or other concerning features were noted. At this point, the robot was undocked and moved away from the patient. The port sites were all assessed laparoscopically. The suture tags and endoscopic bag were moved into the midline port. The 15mm port site had a 19 Fr Flat drain placed and sutured/secured with a 3-0 Nylon suture. This was placed to suction. Dr. Rosado was integral in the remainder of the case and participated heavily in the conduit creation and placement as well as closure of the incisions and fascia. Paula Scales was scrubbed and assisted with these portions of the case as well and was relied on for management of equipment and assistance. The skin at the umbilical port was marked and a midline incision was made into the skin. The subcutaneous tissues were dissected and the fascia exposed. The fascia was opened and a retraction port was placed to facilitate conduit creation. The terminal ileum/ileocecal valve was identified. Approximately 20 cm from the junction , the bowel was assessed. A proximal and distal a silk suture tag was placed into the ileum. The Vasculature was assessed and a segment of 10 cm bowel was chosen with adequate blood supply and good mobility to facilitate placement. A SHERRIE stapler was used to transect the bowel and a stapling device with vascular load was used to cut the mesentery. This had been marked after close inspection. The segment was isolated. and the bowel was reanastomosed with a SHERRIE and TA stapling device. The suture lines were oversewn. A silk stitch was placed into the junction of the two bowel ends. The mesentery opening was sutured with a silk interrupted suture. The conduit segment was irrigated after being opened on the end. The staple line was removed and the bowel irrigated. At this point the ureteral ends were assessed. An opening was made in the bowel on the antimesenteric side. The mucous edges were exposed and sutured open with 4-0 vicryl suture. The ureter was cut and the distal end sent for permanent pathology. The ureter was spatulated. Interrupted 4-0 vicryl suture was used to anastomosis the left ureter to the opening. A diversion stent was placed on the left and was blue in color. The anastomosis was completed and a leak test completed. The right ureter was then anastomosed in a similar fashion approx 1 cm away from the left insertion on the same antimesenteric side. A red diversion stent was placed and leak testing was done with no issues. The skin at the right robotic arm port was assessed and a circular opening created. This port had been placed slightly inferior to the marked ostomy creation site. The subcutaneous fat was removed. A cruciate incision was made into the fascia at the site of port placement. This was dilated after the rectus muscle was split and the peritoneum incised. A Reta was placed and open end of the conduit was placed into the opening. 2 -0 Vicryl suture was used to create an end stoma. This mucosa was inverted in four corners to create a seneca appearance. The conduit had been assessed and mesentery was in proper position. Additional interrupted vicryl was used to secure the ostomy opening. The area was cleaned. The stents were trimmed to allow placement into the ostomy appliance. The flat drain was assessed. The pelvis had been copiously irrigated with sterile water. The drain was positioned into good position in the pelvis. The fascia of the midline incision was closed with a running 1-0 PDS single stranded suture. Vicryl was used to close subcutaneous tissues. A running monocryl was used to close all skin openings. Additional anesthetic agent was injected into the midline fascia before complete closure. The patient was cleaned and the wounds covered with surgical glue. The drain had a sponge and bandage placed. The ostomy was fitted with a urinary ostomy appliance. Urine was freely draining from each of the bilateral stents. The patient was further cleaned. Due to extended surgical time, anesthesia elected to maintain intubation and wean after transfer directly to the Surgical ICU. The patient had tolerated the procedure well without apparent complications. One unit of pRBC was given during the procedure. Please see anesthesia report for full fluid. An estimated 1200cc of blood was lost during the case. The patient was transferred to the Surgical ICU in stable condition while intubated and still under sedation. He will be managed and monitored critically in the immediate post operative period with plans to extubated after fluid mobilization. Family was updated routinely throughout the procedure. As mentioned, Dr. Rosado and Paula Black were integral in many smiley portions of the case with specifics in those sections illustrated in the above dictation. I attest to the content of the Intraoperative Record and any orders documented therein. Any exceptions are noted below.
[2017-11-30] MEDS ORDERED: FENTANYL CITRATE INJ 50 MCG/1 ML 2 ML VIAL IV ONE (18:51)
--- NOTE | 2017-11-30 18:53 | Critical Care Consultation ---
Critical Care Consultation Date of Consultation: Nov 30, 2017. Attending Physician: Robbie Vaca D.O. Reason for Consultation: Postop upper airway edema preventing him from being extubated after the procedure. History of Present Illness Dear Dr. Vaca: Thank you for your kind referral of Mr. Anna to critical care service. This is 62-year-old gentleman with a history of coronary artery disease status post stent placement in 2016, history of smoking quit in 2016, history of recently diagnosed bladder CA with pelvic invasion, the patient presented to the hospital for radical prostatectomy, cystectomy, lymphadenectomy and underwent also nephrostomy with ileal conduit. The patient had the procedure done in Trendelenburg over 9 hours, total blood loss was approximately 1200 mL, the patient did receive a total of 4 L of IV fluid during the procedure. He was stable hemodynamically as well as vital signs frye. The patient postop was evaluated by Dr. Blackburn, and underwent fiberoptic laryngoscopy which showed significant swelling in the upper airway that preclude him from being extubated. The patient did have good lung mechanics on the ventilator. In the past, the patient did have right nephrostomy tube, and currently he had bilateral ureteral stent, with ileoconduit to the pelvic area. And a TRISH in place. Review of system was not obtainable from the patient as the patient was sedated and intubated. At the time the patient started to wake up from the anesthesia, start becoming more agitated requiring propofol infusion as well as fentanyl. His rass was 1 and reduced to -2 with medications. Family History Cancer Diabetes mellitus Social History Smoking Status: Former Smoker Drug Use: none Marital Status: Housing Status: lives with significant other Occupation Status: retired Allergies Coded Allergies: No Known Allergies (Unverified , 11/30/17) Home Medications Scheduled Aspirin (Aspirin Ec), 81 MG PO QAM Atorvastatin (Lipitor), 80 MG PO QPM Ciprofloxacin (Ciprofloxacin HCl), 500 MG PO Q12H Citalopram Hydrobromide (Citalopram Hydrobromide), 10 MG PO QAM Docusate Sodium (Docusate Sodium), 100 MG PO BID Fentanyl (Duragesic), 75 MCG TD Q72H Fluconazole (Fluconazole), 100 MG PO QAM Gabapentin (Gabapentin), 600 MG PO TID Metronidazole (Metronidazole), 500 MG PO TID Nutritional Supplements (Boost), 1 CAN PO BIDM Phenazopyridine HCl (Pyridium), 200 MG PO QOD Polyethylene (Miralax), 17 GM PO DAILY Psyllium (Metamucil Fiber), 1 PKT PO DAILY Tamsulosin Hcl (Flomax), 0.4 MG PO QPM Scheduled PRN Albuterol Sulfate (Proair Respiclick), 2 PUFFS INH UD PRN for SOB/Wheezing Ondansetron Odt (Zofran Odt), 4 MG SL Q8 PRN for Nausea Oxybutynin Chloride (Ditropan), 5 MG PO TID PRN for Bladder pain Oxycodone/Acetaminophen 10MG/325MG (Oxycodone/Acetaminophen 10MG/325MG), 1 TAB PO Q4H PRN for Pain Current Inpatient Medications Current Inpatient Medications Medications (Trade) Dose Ordered Sig/Young Route Start Time Stop Time Status Last Admin Dose Admin Lactated Ringer's 1,000 ml @ 15 mls/hr Q24H IV 11/30/17 06:00 12/01/17 05:59 11/30/17 07:46 15 MLS/HR Lactated Ringer's 1,000 ml @ 15 mls/hr Q24H IV 11/30/17 06:00 12/01/17 05:59 Cefoxitin Sodium (Mefoxin 2000mg/ 60 ml D5W) 2,000 mg Q6 IV 11/30/17 18:00 12/03/17 18:00 UNV Ciprofloxacin/ Dextrose 400 mg/ Prmx 200 ml @ 100 mls/hr Q12 IV 11/30/17 21:00 12/01/17 20:59 Acetaminophen 650 mg/Empty Bag 65 ml @ 260 mls/hr Q6H IV 11/30/17 17:45 12/30/17 17:44 UNV Metoclopramide HCl (Reglan Inj) 10 mg Q8 IV. 11/30/17 22:00 12/03/17 18:00 UNV Famotidine 20 mg/ Dextrose 102 ml @ 200 mls/hr Q12H IV 11/30/17 17:45 12/03/17 18:00 UNV Naloxone HCl (Narcan Inj) 0.1 mg Q5M PRN IV 11/30/17 17:45 12/02/17 18:00 Hydromorphone HCl (Dilaudid Recovery Coach) 25 mg PRN PRN IV 11/30/17 17:45 12/02/17 18:00 Sodium Chloride 1,000 ml @ 15 mls/hr Q24H IV 11/30/17 17:35 12/02/17 18:00 Ketorolac Tromethamine (Toradol Inj) 30 mg Q6H PRN IV 11/30/17 17:45 12/02/17 18:00 UNV Lactated Ringer's 1,000 ml @ 75 mls/hr [id number] IV 11/30/17 17:35 12/30/17 17:34 UNV Albuterol (Ventolin Hfa Inhaler) 2 puffs Q4H PRN INH 11/30/17 18:45 12/30/17 18:44 Non-Formulary Medication (Citalopram Hydrobromide ) 10 mg QAM PO 12/01/17 09:00 12/31/17 08:59 UNV Ondansetron HCl (Zofran Inj) 4 mg Q6H PRN IV 11/30/17 17:45 12/30/17 17:44 Heparin Sodium (Porcine) (Heparin Sq 5000 Unit/0.5ml) 5,000 unit Q12H SQ 11/30/17 19:00 12/30/17 18:59 UNV Metronidazole 500 mg/Prmx 100 ml @ 100 mls/hr Q8H IV 11/30/17 18:15 12/03/17 18:00 UNV Fentanyl Citrate (Fentanyl Inj) 100 mcg ONE IV 11/30/17 18:45 12/14/17 18:44 UNV Fentanyl Citrate (Fentanyl Inj) 50 mcg Q1HWA PRN IV 11/30/17 18:45 12/14/17 18:44 UNV Methylprednisolone Sodium Succinate 40 mg/Syringe 0.64 ml @ 1.5 mls/min Q4 IV 11/30/17 20:00 12/01/17 04:01 UNV Review of Systems Not obtainable. Physical Exam Date Time Temp Pulse Resp B/P (MAP) Pulse Ox O2 Delivery O2 Flow Rate FiO2 11/30/17 18:33 30 11/30/17 07:22 94 Room Air 11/30/17 07:11 36.4 56 18 134/85 General Appearance: no apparent distress ENT: normal throat exam, other (Minimal swelling in the facial area.) Neck: trachea midline, other (Intubated with #8-26 cm.) Respiratory: breath sounds normal Cardiovasular: normal S1S2, no M/G/R, no murmur Abdomen: other (Right-sided TRISH, mid sub-umbilical incision, right nephrostomy tube.) Lower Extremities: no edema Neuro: other (While sedated) Laboratory Results Last 24 Hours Test 11/30/17 07:23 11/30/17 14:41 11/30/17 16:37 11/30/17 17:35 Bedside Glucose 127 mg/dl Bedside Hemoglobin 8.2 g/dl 9.2 g/dl Bedside Hematocrit 24 % 27 % Bedside Sodium 140 mEq/L 138 mEq/L Bedside Potassium 4.0 mEq/L 5.0 mEq/L Bedside Chloride 107 mEq/L 107 mEq/L Bedside Total CO2 24 mEq/l 22 mEq/l Anion Gap 13.0 mmol/L 16.0 mmol/L Bedside Blood Urea Nitrogen 23 mg/dl 24 mg/dl Bedside Creatinine 1.4 mg/dl 1.5 mg/dl Bedside Glucose (other) 238 mg/dl 271 mg/dl Bedside Ionized Calcium (Vishnu) 1.11 mmol/l 1.11 mmol/l Test 11/30/17 18:30 11/30/17 18:46 Blood Gas Sample Site Art Line Bedside Blood Gas pH (LAB) 7.27 Bedside Blood Gas pCO2 (LAB) 40 mmHg Bedside Blood Gas pO2 (LAB) 88 mmHg Bedside Blood Gas HCO3 (LAB) 18 meq/L Bedside Blood Gas Total CO2 19 mEq/l Bedside Blood Gas Base Excess (LAB) -9.0 meq/L Bedside Blood Gas O2 Saturation 95.0 % Adam Test NA Oxygen Delivery Device Ventilator Bedside Oxygen Rate (breaths/min) 19 Blood Gas Minute Ventilation 11 Bedside FiO2 30 % Blood Gas Tidal Volume 559 Blood Gas PEEP 5 Diagnostic Results His labs were reviewed which showed metabolic acidosis, with a pH of 7.26. X- ray still pending. Ventilator has been reviewed and the rest of his labs are pending as well. Assessment & Plan 1. Bladder CA, status post cystectomy, prostatectomy and lymphadenectomy, with diverting ureters to urostomy, nephrostomy tube still in place, bilateral ureteral stents. 2. Status post first dose chemotherapy prior to this admission. 3. History of coronary artery disease status post stenting in 2016. Preserved LV with EF of 55%. 4. History of smoking quit 2 years ago, I do not have evidence of COPD, I do not have pulmonary function test done on this patient in the past. 5. Agitation secondary to postanesthesia awakening. Controlled with propofol and fentanyl. The patient has been already on narcotics prior to coming to the hospital to control his pain from his cancer. 6. Diabetes. 7. Hypertension. 8. Pharyngeal and laryngeal edema due to prolonged Trendelenburg, no evidence of difficult airways. Plan: 1. We will keep the patient intubated. 2. I will perform 3 doses of Solu-Medrol 40 mg every 4 hours overnight for upper airway edema. 3. We will sedate the patient with propofol. 4. Fentanyl as needed every hour. 5. Antibiotics ordered per urology, appreciate Dr. Vaca input. 6. DVT and GI prophylaxis. 7. Toradol if needed for pain control as well. 8. Adjust the ventilator to rate of 18 due to the low pH. 9. Obtain labs. 10. Chest x-ray post intubation. 11. CPAP trial in the morning. 12. Single dose of Lasix in the morning. 13. Glucose control. 14. Hopefully extubation in the morning. 15. Continue with bronchodilators while vented. Case discussed with Dr. Vaca, the staff, critical care time spent with the patient was 60 minutes.
--- NOTE | 2017-11-30 19:09 | Anesthesiology Progress Note ---
Anesthesia Post Op Note Date & Time Nov 30, 2017 at 18:58 Vital Signs Pain Intensity: 4 Vital Signs Past 12 Hours Date Time Temp Pulse Resp B/P (MAP) Pulse Ox O2 Delivery O2 Flow Rate FiO2 11/30/17 18:33 30 11/30/17 18:15 37 98 21 115/68 97 Mechanical Ventilator 30 11/30/17 07:22 94 Room Air 11/30/17 07:11 36.4 56 18 134/85 Notes Mental Status: see Notes Nausea / Vomiting: see Notes Pain: see Notes Airway Patency, RR, SpO2: see Notes BP & HR: stable & adequate Hydration State: stable & adequate Anesthetic Complications: no major complications apparent Patient had robot assisted radical cystoprostatectomy under GETA with steep trendelenberg for ~9hours. Intraoperatively, the case proceeded quite well and the patient tolerated the anesthetic without issue. 3L of crystalloid was given with 0.5L of colloid to facilitate hemodynamics and urine output through the newly created urostomies, which was adequate. At the end of the case, patient was pulling >500cc tidal volumes spontaneously even in trendelenberg position which improved to 650cc when placed in a seated position. He was saturating 100% on 50% FiO2. When the patient was positioned for a potential wean, his face had moderate swelling and periorbital edema. There was minimal edema around the neck. I considered extubating the patient, but first performed fiberoptic nasal and oral laryngoscopies to evaluate the posterior oropharynx and glottis. On fiberoptic exam, there was significant edema of the soft pallate and posterior tongue which only had a tiny opening and was difficult to pass with the scope. The posterior arytenoids also had significant edema. Thus, a decision was made to leave the patient intubated and sedated overnight until adequate fluid mobilization had been achieved. I discussed this plan with the ICU attending and he will take over ventilator management overnight and weaning trials in the morning. I also discussed this plan with the patients family and their questions and concerns have been answered.
[2017-11-30] MEDS ORDERED: PHARMACY GLYCEMIC MGMT CONSULT PRN (19:10)
[2017-11-30 19:11] LABS: HEMATOCRIT 29.1 % (42-52); HEMOGLOBIN 9.6 g/dL (14.0-18.0); MEAN CELL VOLUME 90.9 fL (80-100); MEAN PLATELET VOLUME 9.2 fL (7.4-10.4); PLATELET COUNT 125 K/uL (130-400); RED CELL DISTRIBUTION WIDTH CV 16.9 % (11.5-14.5); RED CELL DISTRIBUTION WIDTH SD 56.4 fL (36.4-46.3); WHITE BLOOD COUNT 12.26 K/uL (4.8-10.8)
--- NOTE | 2017-11-30 19:15 | Anesthesiology Progress Note ---
Anesthesia Progress Note Date of Service Nov 30, 2017. Progress Notes Nasal and oral flexible fiberoptic exams performed by myself at the end of the 9 hour operative procedure to evaluate posterior oropharynx and glottis prior to possible ventilator wean. Posterior oropharynx demostrated significant edema of the posterior tongue and soft pallate. There was a very small opening that was mildly resistant to passing of the scope on oral exam. Posterior nasopharynx also very obstructed by edema on nasal exam. Posterior arytenoids were moderately edematous. Decision made to leave patient intubated overnight for fluid mobilization. Further details in anesthesia post op note.
[2017-11-30 19:20] LABS: INR 1.1 (0.9-1.1)
[2017-11-30 19:41] LABS: CALCIUM 7.6 mg/dl (8.5-10.1); CREATININE 2.19 mg/dl (0.60-1.40)
[2017-11-30] MEDS ORDERED: GLUCOSE 10 TABS/TUBE PO PRN (19:45)
[2017-11-30] MEDS ORDERED: INSULIN REGULAR 250 UNITS in SODIUM CHLORIDE 0.9% 250ML 250 ML IV SCH (19:45)
[2017-11-30] MEDS ORDERED: GLUCAGON FOR INJ 1 MG VIAL SQ PRN (19:45)
[2017-11-30] MEDS ORDERED: GLUCOSE 40% GEL 15 GM TUBE PO PRN (19:45)
[2017-11-30] MEDS ORDERED: INSULIN HUMAN REGULAR IV BOLUS 2.5 UNIT in SYRINGE 0 ML IV ONE (19:45)
[2017-11-30] MEDS ORDERED: DEXTROSE 50% 50 ML SYR IV PRN (19:45)
[2017-11-30] MEDS: METRONIDAZOLE / NSS 500 MG in PREMIXED NSS 100 ML IV SCH (19:49)
--- NOTE | 2017-11-30 19:49 | Pharmacy Progress Note ---
Glycemic Control Intl Consult Date of Service Nov 30, 2017. Scope Glycemic Pharmacist consulted by Dr Thomas on 11/30/17 for glycemic control and to write orders per [facility] inpatient glycemic control protocol Objective Weight (Kilograms): 96 Accuchecks BSG (last 24hrs): Test 11/30/17 07:23 11/30/17 18:56 Bedside Glucose 127 mg/dl (70-99) Random Glucose 269 mg/dl (70-99) Laboratory Data (last 24hrs) Test 11/30/17 14:41 11/30/17 16:37 11/30/17 18:56 Anion Gap 13.0 mmol/L 16.0 mmol/L 10.0 mmol/L BUN/Creatinine Ratio 11.8 Blood Urea Nitrogen 26 mg/dl Creatinine 2.19 mg/dl Potassium Level 5.0 mmol/L Sodium Level 138 mmol/L White Blood Count 12.26 K/uL Recent Pertinent Medications Outpatient Anti-diabetic Regimen: * glimepiride 4 mg BID + metformin ER 750 mg BID + Prandin 0.5 mg qAM + Januvia 100 mg daily Assessment & Plan ASSESSMENT: * 62 yr old T2DM admitted for radical prostatectomy, cystectomy, lymphadenectomy and nephrostomy with ileal conduit. * Patient is well controlled on oral anti-diabetic agents with recent A1c of 6.2 %. * Patient was found to have upper airway edema post procedure and therefore is unable to be extubated at this time. Solu-medrol 40 mg IV every 4 hours x 3 doses has been initiated for airway edema. * Last three BSGs have been > 220 mg/dL, therefore I have ordered an IV insulin infusion. * I anticipate transition to SQ basal + bolus insulin on 4/6 am after last dose of IV steroid is administered. PLAN FOR INPATIENT GLYCEMIC CONTROL: * Starting IV insulin infusion per moderate stress protocol * Goal Range 120 - 160 mg/dl * In the critical care setting, continuous IV insulin infusion has been shown to be the best method for achieving glycemic targets. * Holding outpatient oral diabetes medications * Please note that the plan above was derived based on current level of insulin resistance and hospital stress. These recommendations are appropriate for inpatient admission only. Plan of care upon discharge will need to be reassessed to avoid potential outpatient hypo/hyperglycemia. Thank you.
[2017-11-30] MEDS: ACETAMINOPHEN IV 650 MG in EMPTY BAG 0 ML IV SCH (19:50)
[2017-11-30] MEDS: METHYLPREDNISOLONE IV 40 MG in SYRINGE 0 ML IV SCH (19:50)
[2017-11-30] MEDS: FAMOTIDINE IV INJ 20 MG in SYRINGE 3 ML IV SCH (19:51)
[2017-11-30] MEDS: LACTATED RINGER'S 1000ML 1,000 ML IV SCH (19:51)
[2017-11-30] MEDS: FENTANYL CITRATE INJ 50 MCG/1 ML 2 ML VIAL IV PRN ×2 (20:10→22:01)
[2017-11-30] MEDS: CIPROFLOXACIN / D5W 400 MG in PREMIXED IN D5W 200 ML IV SCH (20:15)
[2017-11-30] MEDS: KETOROLAC TROMETHAMINE 15 MG/ML VIAL IV PRN (20:21)
--- NOTE | 2017-11-30 20:33 | DIAGNOSTIC IMAGING REPORT ---
KUB CLINICAL HISTORY: 62 years-old Male presenting with s/p cystectomy - in PACU. TECHNIQUE: Single supine view of the abdomen was obtained. COMPARISON: CT from 11/11/2017 and plain radiograph from 08/22/2017. FINDINGS: Nonobstructive bowel gas pattern. No gross pneumoperitoneum. Right percutaneous the prostate and bilateral ureteral stents. Evidence of an ileal conduit given the course of the ureteral stents. Suture margins in the bowel evident in the right lower quadrant. A Alvaro-Duong drain projects over the left hemipelvis. An external bulb device projects over the mid abdomen degrading image quality in this region. Degenerative changes of the spine. IMPRESSION: 1. Postsurgical changes of ileal conduit with right percutaneous the fluoroscopy and bilateral ureteral stents in place. Electronically signed by: Benton Recio M.D. 11/30/2017 8:32 PM Dictated Date/Time: 11/30/2017 8:29 PM
--- NOTE | 2017-11-30 20:35 | DIAGNOSTIC IMAGING REPORT ---
CHEST ONE VIEW PORTABLE CLINICAL HISTORY: 62 years-old Male presenting with post intubation. TECHNIQUE: Portable upright AP view of the chest was obtained. COMPARISON: 10/12/[address] from 10/30/2017. FINDINGS: An endotracheal tube is positioned in the upper thoracic trachea proximally 7 cm from the hernán. Left subclavian Mediport again terminates in the lower SVC. Atherosclerosis of the moderate prominent and tortuous thoracic aorta. Cardiac silhouette normal in size. No focal opacity. No large effusion or pneumothorax. Osseous structures normal. IMPRESSION: 1. Appropriately positioned endotracheal tube. 2. No acute cardiopulmonary disease. Electronically signed by: Benton Recio M.D. 11/30/2017 8:33 PM Dictated Date/Time: 11/30/2017 8:32 PM
[2017-11-30] MEDS: INSULIN ASPART 100 UNITS/ML 3 ML PEN SC SCH (21:00)
[2017-11-30] MEDS: METOCLOPRAMIDE HCL INJ 5 MG/ML 2 ML VIAL IV. SCH (22:01)
[2017-11-30] MEDS: CEFOXITIN IV 2,000 MG in DEXTROSE 5% 50ML 50 ML IV SCH (22:01)
[2017-11-30] MEDS: HEPARIN SOD 5000 UNIT/0.5 ML CARP SQ SCH (22:02)
[2017-12-01] VITALS (17 sets, daily range): BP systolic 117–164; BP diastolic 71–89; PULSE 72–88; TEMP 36.9–37.1; O2SAT 97–100; Ht 182.9 cm; Wt 92.2 kg
[2017-12-01] MEDS: METHYLPREDNISOLONE IV 40 MG in SYRINGE 0 ML IV SCH ×2 (00:15→03:32)
[2017-12-01] MEDS: FENTANYL CITRATE INJ 50 MCG/1 ML 2 ML VIAL IV PRN ×3 (00:16→06:26)
[2017-12-01] MEDS: ACETAMINOPHEN IV 650 MG in EMPTY BAG 0 ML IV SCH ×4 (02:06→19:41)
[2017-12-01] MEDS ORDERED: PROPOFOL IV EMULSION 10 MG/ML 100 ML VIAL IV ONE (02:25)
[2017-12-01] MEDS: METRONIDAZOLE / NSS 500 MG in PREMIXED NSS 100 ML IV SCH ×3 (03:29→19:28)
[2017-12-01] MEDS: CEFOXITIN IV 2,000 MG in DEXTROSE 5% 50ML 50 ML IV SCH ×4 (03:29→20:52)
[2017-12-01] MEDS: KETOROLAC TROMETHAMINE 15 MG/ML VIAL IV PRN (03:30)
[2017-12-01] MEDS ORDERED: PNEUMOCOCCAL POLYSACCHARIDES 25 MCG/0.5 ML VIAL/SYR IM. ONE (03:45)
[2017-12-01] MEDS ORDERED: PNEUMOCOCCAL ADMINISTRATION CHARGE ONE (03:45)
[2017-12-01] MEDS ORDERED: PROPOFOL IV EMULSION 10 MG/ML 100 ML VIAL IV PRN (04:15)
[2017-12-01 05:04] LABS: HEMATOCRIT 27.2 % (42-52); HEMOGLOBIN 8.9 g/dL (14.0-18.0); MEAN CORPUSCULAR HEMOGLOBIN 29.8 pg (25-34); MEAN CORPUSCULAR HGB CONC 32.7 g/dl (32-36); MEAN PLATELET VOLUME 9.3 fL (7.4-10.4); PLATELET COUNT 132 K/uL (130-400); RED CELL DISTRIBUTION WIDTH CV 17.5 % (11.5-14.5); RED CELL DISTRIBUTION WIDTH SD 57.7 fL (36.4-46.3); WHITE BLOOD COUNT 10.89 K/uL (4.8-10.8)
[2017-12-01 05:22] LABS: CALCIUM 7.8 mg/dl (8.5-10.1); CREATININE 2.82 mg/dl (0.60-1.40); POTASSIUM 4.5 mmol/L (3.5-5.1)
[2017-12-01 05:28] LABS: IG# 0.02 K/uL (0.00-0.02); LYMPH % 2.7 %; LYMPH ABS # 0.29 K/uL (1.2-3.4); MONO % 2.4 %; MONO ABS # 0.26 K/uL (0.11-0.59); NEUT % 94.7 %; NEUT ABS # 10.32 K/uL (1.4-6.5)
[2017-12-01] MEDS: FAMOTIDINE IV INJ 20 MG in SYRINGE 3 ML IV SCH (06:08)
[2017-12-01] MEDS: METOCLOPRAMIDE HCL INJ 5 MG/ML 2 ML VIAL IV. SCH ×3 (06:08→20:49)
[2017-12-01] MEDS: INSULIN ASPART 100 UNITS/ML 3 ML PEN SC SCH ×4 (08:00→23:44)
--- NOTE | 2017-12-01 08:10 | Anesthesiology Progress Note ---
Anesthesia Post Op Note Date & Time Dec 01, 2017 at 08:08 Vital Signs Pain Intensity: 4 Vital Signs Past 12 Hours Date Time Temp Pulse Resp B/P (MAP) Pulse Ox O2 Delivery O2 Flow Rate FiO2 12/01/17 07:50 30 12/01/17 07:24 30 12/01/17 06:00 79 155/76 (102) 99 12/01/17 05:00 74 150/71 (97) 100 12/01/17 04:59 30 12/01/17 04:00 Mechanical Ventilator 30 12/01/17 04:00 30 12/01/17 04:00 37.0 81 164/88 (113) 100 Mechanical Ventilator 30 12/01/17 03:00 78 151/77 (101) 99 12/01/17 02:05 30 12/01/17 02:01 81 148/76 (100) 99 12/01/17 02:00 79 150/77 (101) 12/01/17 01:00 83 134/71 (92) 99 12/01/17 00:01 87 144/76 (98) 98 11/30/17 23:59 Mechanical Ventilator 30 11/30/17 23:59 30 11/30/17 23:07 30 11/30/17 23:00 37.1 87 156/76 (102) 100 11/30/17 22:01 87 150/75 (100) 99 11/30/17 22:00 86 148/73 (98) 11/30/17 21:00 90 130/66 (87) 99 11/30/17 20:21 91 132/60 (84) 99 Notes Mental Status: see Notes Pt Amnestic to Procedure: Yes Nausea / Vomiting: adequately controlled Pain: adequately controlled Airway Patency, RR, SpO2: stable & adequate, see Notes BP & HR: stable & adequate Hydration State: stable & adequate Anesthetic Complications: no major complications apparent patient continues to be intubated and on ventilator in ICU. plan is to wean off and extubate later today once MD arrives. pt on propofol drip. VSS, no pressors infusing.
--- NOTE | 2017-12-01 08:11 | Clinical Documentation Query ---
QUERY 1 OF [address] ALVARENGA, In your clinical opinion is this patient being managed for: ( ) Acute blood loss anemia ( ) Not Agree ( X ) Other explanation of clinical findings (Please Explain) Patient was given 1u pRBC during a major surgery indicated by anesthesia management. Has not required further transfusion and is stable. ( ) Unable to determine (Please Define) ( ) Need to Discuss The medical record reflects the following clinical findings, treatment, and risk factors. Clinical Indicators: 62 yo male presenting with bladder cancer requiring surgery. EBL of 1200 cc, TRISH drainage 250 cc thus far. 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 Clinical Indicators: Review of historical Cr levels revealed baseline range of 1.04-1.37 with GFR of 54.5-72.7. Postoperatively Cr has risen to 2.82. Nursing note describes ileal conduit urine as brown/jr in color. Treatment: IV fluids, 1U PRBC, serial PRP's, I/O, ICU monitoring Risk Factors: bladder surgery, IV lasix for edema mgt, hx CAD, DM and HTN Please clarify and document your clinical opinion in the progress notes and discharge summary. Terms such as "probable", "suspected", "likely", "questionable", "possible", or "still to be ruled out" are acceptable. IF IN AGREEMENT, YOU MUST DOCUMENT ABOVE DIAGNOSTIC STATEMENT IN DAILY PROGRESS NOTES AND DISCHARGE SUMMARY. This document is not part of the patient's record. Thank You, Nickie Reardon, RN [phone]
[2017-12-01] MEDS ORDERED: INSULIN GLARGINE SOLOSTAR 100 UNITS/ML 3 ML PEN SC ONE ×2 (09:00→21:00)
[2017-12-01] MEDS ORDERED: ENOXAPARIN 30 MG/0.3 ML SYR SQ SCH (09:00)
[2017-12-01] MEDS: CITALOPRAM 20 MG TAB PO SCH (09:00)
[2017-12-01] MEDS: HYDROmorphone HCL 0.5MG/ML 50 ML CASSETTE IV PRN (09:27)
[2017-12-01] MEDS: CIPROFLOXACIN / D5W 400 MG in PREMIXED IN D5W 200 ML IV SCH ×2 (09:32→20:39)
[2017-12-01] MEDS: HEPARIN SOD 5000 UNIT/0.5 ML CARP SQ SCH ×2 (09:36→20:42)
--- NOTE | 2017-12-01 09:44 | Pharmacy Progress Note ---
Glycemic Control Intl Consult Date of Service Dec 01, 2017. Scope Glycemic Pharmacist consulted by Dr Thomas on 11/30/17 for glycemic control and to write orders per [facility] inpatient glycemic control protocol Objective Weight (Kilograms): 92.200 Accuchecks BSG (last 24hrs): Test 11/30/17 18:32 11/30/17 18:56 11/30/17 21:02 11/30/17 22:06 Bedside Glucose 262 mg/dl (70-99) 268 mg/dl (70-99) 207 mg/dl (70-99) Random Glucose 269 mg/dl (70-99) Test 11/30/17 23:17 12/01/17 00:09 12/01/17 01:16 12/01/17 01:57 Bedside Glucose 169 mg/dl (70-99) 235 mg/dl (70-99) 222 mg/dl (70-99) 224 mg/dl (70-99) Test 12/01/17 02:56 12/01/17 04:15 12/01/17 04:52 12/01/17 04:54 Bedside Glucose 209 mg/dl (70-99) 173 mg/dl (70-99) 192 mg/dl (70-99) Random Glucose 185 mg/dl (70-99) Laboratory Data (last 24hrs) Test 11/30/17 14:41 11/30/17 16:37 11/30/17 18:56 12/01/17 04:52 Anion Gap 13.0 mmol/L 16.0 mmol/L 10.0 mmol/L 8.0 mmol/L BUN/Creatinine Ratio 11.8 12.5 Blood Urea Nitrogen 26 mg/dl 35 mg/dl Creatinine 2.19 mg/dl 2.82 mg/dl Potassium Level 5.0 mmol/L 4.5 mmol/L Sodium Level 138 mmol/L 137 mmol/L White Blood Count 12.26 K/uL 10.89 K/uL Red Blood Count 2.99 M/uL Hemoglobin 8.9 g/dL Hematocrit 27.2 % Mean Corpuscular Volume 91.0 fL Mean Corpuscular Hemoglobin 29.8 pg Mean Corpuscular Hemoglobin Concent 32.7 g/dl Platelet Count 132 K/uL Mean Platelet Volume 9.3 fL Neutrophils (%) (Auto) 94.7 % Lymphocytes (%) (Auto) 2.7 % Monocytes (%) (Auto) 2.4 % Eosinophils (%) (Auto) 0.0 % Basophils (%) (Auto) 0.0 % Neutrophils # (Auto) 10.32 K/uL Lymphocytes # (Auto) 0.29 K/uL Monocytes # (Auto) 0.26 K/uL Eosinophils # (Auto) 0.00 K/uL Basophils # (Auto) 0.00 K/uL HbA1c 6.2% 11/13/17 Recent Pertinent Medications Outpatient Anti-diabetic Regimen: * Glimepiride 4mg PO BID * Metformin ER 750mg PO BID * Prandin 0.5mg with breakfast * Januvia 100mg PO daily * A1c = 6.2 % 11/13/17 The patient is currently receiving: * IV insulin infusion per moderate stress protocol; goal range 120-160mg/dL Risk Factors for Insulin Resistance: * Steroids: Solu-medrol 40mg IV Q 4 hrs x 3 doses (last dose at ~0330 12/01/17) * Infection: abx prophylaxis ordered for /GI surgery * IVF: LR @125cc/hr * Recent Surgery: POD # 1 * Diet: NPO * Mechanical Ventilation: extubated this AM Assessment & Plan ASSESSMENT: * 62 yo type 2 diabetic admitted to ICU following radical prostatectomy, cystectomy, lymphadenectomy, nephrostomy w/ ileal conduit * He remained on vent following procedure due to laryngeal edema * Prescribed Solu-Medrol 40mg IV x 3 doses for airway edema prior to extubation * Extubated this AM, however diet will not advance today * Insulin infusion initiated last evening due to multiple significant stressors (9+ hours surgery, mech vent, steroids, etc) and continues this AM * Insulin drip ran at ~3.8 units/hr overnight and BSGs are now dropping into the 190's this AM (current rate 3units/hr) * Given pt's recent surgery and infectious risks, would like to maintain tight glycemic control over the next 24 hours. An insulin drip would be best suited to meet these goals, however adding some basal insulin at this time is reasonable as this will aid in the transition off the insulin drip in the future. He will likely require a basal/bolus insulin regimen for control once off the insulin drip. PLAN FOR INPATIENT GLYCEMIC CONTROL: * Lantus 32 units SQ x 1 this AM; then 16 units BID thereafter with the insulin drip * Change IV insulin drip goal range to 110 - 180 mg/dL * If the insulin drip is placed on hold for > 2 hours after the Lantus is on board, may discontinue the insulin drip * If transitioned off the insulin drip, would begin the following Novolog orders in addition to the above Lantus: * BSGs Q 4 hours * Correction factor 20 mg/dl/unit * Carb ratio 1 unit per 7 grams CHO consumed * Goal range Low 120 mg/dL - High 160 mg/dL * Please note that the plan above was derived based on current level of insulin resistance and hospital stress. These recommendations are appropriate for inpatient admission only. Plan of care upon discharge will need to be reassessed to avoid potential outpatient hypo/hyperglycemia. Thank you.
[2017-12-01] MEDS ORDERED: COUGH DROP (SUGAR FREE) LOZ 24 LOZ/1 BOX LOZ ONE (09:53)
[2017-12-01] MEDS ORDERED: INSULIN PROTOCOL GOAL RANGE ONE (10:00)
--- NOTE | 2017-12-01 10:01 | Progress Note ---
Subjective Date of Service: Dec 01, 2017. (Paula Scales CRNP) Subjective Pt evaluation today including: conversation w/ patient, chart review, lab review 62 yo male with bladder cancer s/p cystectomy. Pt extubated this morning. Pt is OOB to chair this morning. Doing well. Denies n/v. Urostomy draining light neville colored urine. PCN tube draining clear, yellow urine. (Paula Scales CRNP) Problem List Medical Problems: (1) Abdominal pain Status: Acute (2) Acute hyponatremia Status: Acute (3) Bladder neoplasm Status: Acute (4) Constipation Status: Acute (5) Fungal infection Status: Acute (6) Generalized weakness Status: Acute (7) Hematuria Status: Acute (8) Hypomagnesemia Status: Acute (9) Intractable abdominal pain Status: Acute (10) Suprapubic abdominal pain Status: Acute (11) Urinary tract infection associated with nephrostomy catheter Status: Acute (12) UTI (urinary tract infection) Status: Acute (Paula Scales CRNP) Review of Systems Constitutional: No fever, No chills Respiratory: No shortness of breath Cardiac: No chest pain Abdomen: No pain, No nausea, No vomiting Male : + hematuria Heme: No abnormal bleeding/bruising (Paula Scales CRNP) Objective Vital Signs Date Time Temp Pulse Resp B/P (MAP) Pulse Ox O2 Delivery O2 Flow Rate FiO2 12/01/17 07:50 30 12/01/17 07:24 30 12/01/17 06:00 79 155/76 (102) 99 12/01/17 05:00 74 150/71 (97) 100 12/01/17 04:59 30 12/01/17 04:00 Mechanical Ventilator 30 12/01/17 04:00 30 12/01/17 04:00 37.0 81 164/88 (113) 100 Mechanical Ventilator 30 12/01/17 03:00 78 151/77 (101) 99 12/01/17 02:05 30 12/01/17 02:01 81 148/76 (100) 99 12/01/17 02:00 79 150/77 (101) 12/01/17 01:00 83 134/71 (92) 99 12/01/17 00:01 87 144/76 (98) 98 11/30/17 23:59 Mechanical Ventilator 30 11/30/17 23:59 30 11/30/17 23:07 30 11/30/17 23:00 37.1 87 156/76 (102) 100 11/30/17 22:01 87 150/75 (100) 99 11/30/17 22:00 86 148/73 (98) 11/30/17 21:00 90 130/66 (87) 99 11/30/17 20:21 91 132/60 (84) 99 11/30/17 20:06 86 135/66 (89) 100 11/30/17 20:00 83 171/81 (111) 99 11/30/17 20:00 30 11/30/17 20:00 30 11/30/17 20:00 Mechanical Ventilator 30 11/30/17 19:00 37.0 91 128/68 (88) 98 Mechanical Ventilator 30 11/30/17 18:35 102 20 133/71 99 11/30/17 18:33 30 11/30/17 18:30 91 20 136/78 97 11/30/17 18:25 91 21 129/73 97 11/30/17 18:15 37 98 21 115/68 97 Mechanical Ventilator 30 (Paula Scales CRNP) Physical Exam General Appearance: no apparent distress Eyes: normal inspection ENT: hearing grossly normal Neck: no JVD Respiratory/Chest: no respiratory distress, no accessory muscle use Cardiovascular: no JVD Abdomen: + pertinent finding (abdominal incisions c/d/i; ostomy neville/dusky; TRISH draining sanguinous fluid) Extremities: normal inspection Neurologic/Psychiatric: alert, normal mood/affect, oriented x 3 Skin: normal color (Paula Scales CRNP) Laboratory Results Last 24 Hours Test 11/30/17 14:41 11/30/17 16:37 11/30/17 18:30 11/30/17 18:32 Bedside Hemoglobin 8.2 g/dl 9.2 g/dl Bedside Hematocrit 24 % 27 % Bedside Sodium 140 mEq/L 138 mEq/L Bedside Potassium 4.0 mEq/L 5.0 mEq/L Bedside Chloride 107 mEq/L 107 mEq/L Bedside Total CO2 24 mEq/l 22 mEq/l Anion Gap 13.0 mmol/L 16.0 mmol/L Bedside Blood Urea Nitrogen 23 mg/dl 24 mg/dl Bedside Creatinine 1.4 mg/dl 1.5 mg/dl Bedside Glucose (other) 238 mg/dl 271 mg/dl Bedside Ionized Calcium (Vishnu) 1.11 mmol/l 1.11 mmol/l Blood Gas Sample Site Art Line Bedside Blood Gas pH (LAB) 7.27 Bedside Blood Gas pCO2 (LAB) 40 mmHg Bedside Blood Gas pO2 (LAB) 88 mmHg Bedside Blood Gas HCO3 (LAB) 18 meq/L Bedside Blood Gas Total CO2 19 mEq/l Bedside Blood Gas Base Excess (LAB) -9.0 meq/L Bedside Blood Gas O2 Saturation 95.0 % Adam Test NA Oxygen Delivery Device Ventilator Bedside Oxygen Rate (breaths/min) 19 Blood Gas Minute Ventilation 11 Bedside FiO2 30 % Blood Gas Tidal Volume 559 Blood Gas PEEP 5 Bedside Glucose 262 mg/dl Test 11/30/17 18:56 11/30/17 21:02 11/30/17 22:06 11/30/17 23:17 White Blood Count 12.26 K/uL Red Blood Count 3.20 M/uL Hemoglobin 9.6 g/dL Hematocrit 29.1 % Mean Corpuscular Volume 90.9 fL Mean Corpuscular Hemoglobin 30.0 pg Mean Corpuscular Hemoglobin Concent 33.0 g/dl RDW Standard Deviation 56.4 fL RDW Coefficient of Variation 16.9 % Platelet Count 125 K/uL Mean Platelet Volume 9.2 fL Prothrombin Time 11.4 SECONDS Prothromb Time International Ratio 1.1 Sodium Level 138 mmol/L Potassium Level 5.0 mmol/L Chloride Level 109 mmol/L Carbon Dioxide Level 19 mmol/L Anion Gap 10.0 mmol/L Blood Urea Nitrogen 26 mg/dl Creatinine 2.19 mg/dl Est Creatinine Clear Calc Drug Dose 41.5 ml/min Estimated GFR () 35.8 Estimated GFR (Non- 30.9 BUN/Creatinine Ratio 11.8 Random Glucose 269 mg/dl Calcium Level 7.6 mg/dl Bedside Glucose 268 mg/dl 207 mg/dl 169 mg/dl Test 12/01/17 00:09 12/01/17 01:16 12/01/17 01:57 12/01/17 02:56 Bedside Glucose 235 mg/dl 222 mg/dl 224 mg/dl 209 mg/dl Test 12/01/17 04:15 12/01/17 04:52 12/01/17 04:54 Bedside Glucose 173 mg/dl 192 mg/dl White Blood Count 10.89 K/uL Red Blood Count 2.99 M/uL Hemoglobin 8.9 g/dL Hematocrit 27.2 % Mean Corpuscular Volume 91.0 fL Mean Corpuscular Hemoglobin 29.8 pg Mean Corpuscular Hemoglobin Concent 32.7 g/dl Platelet Count 132 K/uL Mean Platelet Volume 9.3 fL Neutrophils (%) (Auto) 94.7 % Lymphocytes (%) (Auto) 2.7 % Monocytes (%) (Auto) 2.4 % Eosinophils (%) (Auto) 0.0 % Basophils (%) (Auto) 0.0 % Neutrophils # (Auto) 10.32 K/uL Lymphocytes # (Auto) 0.29 K/uL Monocytes # (Auto) 0.26 K/uL Eosinophils # (Auto) 0.00 K/uL Basophils # (Auto) 0.00 K/uL RDW Standard Deviation 57.7 fL RDW Coefficient of Variation 17.5 % Immature Granulocyte % (Auto) 0.2 % Immature Granulocyte # (Auto) 0.02 K/uL Red Blood Cell Morphology Unremarkable Sodium Level 137 mmol/L Potassium Level 4.5 mmol/L Chloride Level 108 mmol/L Carbon Dioxide Level 21 mmol/L Anion Gap 8.0 mmol/L Blood Urea Nitrogen 35 mg/dl Creatinine 2.82 mg/dl Est Creatinine Clear Calc Drug Dose 32.2 ml/min Estimated GFR () 26.4 Estimated GFR (Non- 22.8 BUN/Creatinine Ratio 12.5 Random Glucose 185 mg/dl Calcium Level 7.8 mg/dl (Paula Scales CRNP) Assessment and Plan POD #1 s/p cystectomy AFVSS. Cr noted to be elevated at 2.82. H&H of 8.9 and 27.2. Positive fluid balance not unexpected. Will continue to keep IVF slow at 75mls/ hr. He will remain on Cipro, Flagyl, and cefoxitin x 72hrs post-op. Continue SCDs/TEDs/Hep subq for DVT prophylaxis. Continue PT/OT and ambulation to hallway TID. Encourage IS. He will remain NPO today. Will start 8oz of clear liquids q8hrs on POD #2 if doing well. Ostomy nurse consulted. Possible transfer to med/surg tomorrow if doing well. Will also consult social media director for discharge planning. The pt most likely to remain inpatient at least 5 days, and will need set up with home health upon d/ c home. Continued [facility] stay due to: inadequate po fluid intake, multiple IV medications needed Discharge planning: home with home health (Paula Scales CRNP) 1. POD 1 s/p Radical Cystoprostatectomy with Ileal Diversion and PLND 2. SANTHOSH on CKD 3. Tracheal Edema Patient doing well. Extubated. Being managed with fluid. Agree with noted as above. Continue critical monitoring. Continue Cystectomy Rapid Transition protocol (Robbie Vaca., II., DO)
[2017-12-01] MEDS ORDERED: ROCURONIUM BROMIDE 10 MG/ML 5 ML VIAL IV ONE (10:11)
--- NOTE | 2017-12-01 11:04 | Critical Care Progress Note ---
Critical Care Progress Note Date of Service Dec 01, 2017. Attending Dr. Thomas Subjective No events overnight, the patient has been on propofol and did require frequent doses of fentanyl for pain control. Today in the morning, the patient is fully awake following commands and answering questions. He tolerated spontaneous breathing trial. With good lung mechanics. Objective Physical exam of 12/01/2017 revealed postop patient, currently intubated, does not appear to be in any distress, vital signs are stable except for blood pressure of 151, heart examination S1-S2 regular rate and rhythm, distant breath sounds bilaterally, postop changes, nephrostomy tube and urostomy bag is in place. Trace edema in the periphery. The edema in the upper airway has resolved. His labs also reviewed on 12/01/2017 which revealed worsening of BUN/creatinine, likely postobstructive, the patient have a good urine output, still blood-tinged , his labs also reviewed as well as his chest x-ray which showed the ET tube is approximately 6 cm above the hernán. No infiltrate. No pulmonary vascular congestion either. Leak test was performed at the bedside with excellent leak. Assessment & Plan 1. Postop failure to wean due to pharyngeal and laryngeal edema, resolved. 2. Status post prostatectomy and cystectomy for bladder CA. 3. History of obstructive sleep apnea. 4. History of coronary artery disease status post stenting in 2015. 5. Acute kidney insufficiency on chronic kidney disease, bilateral ureteral stent. 6. Possible history of COPD, I could not confirm it. 7. History of C. difficile colitis in September 2017, no evidence of diarrhea at this point. 8. Diabetes. Plan: 1. I would proceed with extubation. 2. Discontinue propofol. 3. Dilaudid LEAN FACILITATOR. 4. Appreciate pharmacy assistance in the Dilaudid CA. 5. Continue current antibiotics per Dr. Vaca, appreciate his input. 6. The patient was started on clear liquids in the morning. 8 ounces every 8. 7. Blood pressure has been on the borderline will control the pain first before reinstitute his medications. 8. Glucose control per pharmacy, appreciate input. 9. The patient is currently off steroids and likely his blood sugar would be better controlled. 10. DVT prophylaxis. 11. Ambulate. 12. Resume his fentanyl patch. 13. Discontinue fentanyl IV. 14. Discussed with the staff on rounds and details. Thank you, will follow, critical care time spent with the patient was 35 minutes. Data Medications: Current Inpatient Medications Medications (Trade) Dose Ordered Sig/Young Route Start Time Stop Time Status Last Admin Dose Admin Ciprofloxacin/ Dextrose 400 mg/ Prmx 200 ml @ 100 mls/hr Q12 IV 11/30/17 21:00 12/03/17 10:59 12/01/17 09:32 100 MLS/HR Acetaminophen 650 mg/Empty Bag 65 ml @ 260 mls/hr Q6H IV 11/30/17 20:00 12/30/17 19:59 12/01/17 08:38 260 MLS/HR Metoclopramide HCl (Reglan Inj) 10 mg Q8 IV. 11/30/17 22:00 12/03/17 18:00 12/01/17 06:08 10 MG Naloxone HCl (Narcan Inj) 0.1 mg Q5M PRN IV 11/30/17 17:45 12/02/17 18:00 Hydromorphone HCl (Dilaudid Sound Ranging Crewmember) 25 mg PRN PRN IV 11/30/17 17:45 12/02/17 18:00 12/01/17 09:27 25 MG Sodium Chloride 1,000 ml @ 15 mls/hr Q24H IV 11/30/17 17:35 12/02/17 18:00 Lactated Ringer's 1,000 ml @ 125 mls/hr Q8H IV 11/30/17 19:00 12/30/17 18:59 11/30/17 19:51 75 MLS/HR Albuterol (Ventolin Hfa Inhaler) 2 puffs Q4H PRN INH 11/30/17 18:45 12/30/17 18:44 Citalopram Hydrobromide (celeXA TAB) 10 mg QAM PO 12/01/17 09:00 12/31/17 08:59 Ondansetron HCl (Zofran Inj) 4 mg Q6H PRN IV 11/30/17 17:45 12/30/17 17:44 Heparin Sodium (Porcine) (Heparin Sq 5000 Unit/0.5ml) 5,000 unit Q12H SQ 11/30/17 21:00 12/30/17 20:59 12/01/17 09:36 5,000 UNIT Metronidazole 500 mg/Prmx 100 ml @ 100 mls/hr Q8H IV 11/30/17 20:00 12/03/17 12:59 12/01/17 03:29 100 MLS/HR Cefoxitin Sodium 2000 mg/Dextrose 60 ml @ 120 mls/hr Q6H IV 11/30/17 22:00 12/03/17 16:29 12/01/17 09:37 120 MLS/HR Miscellaneous Information (Consult Glycemic Management Pharmacy) 1 ea UD PRN N/A 11/30/17 19:10 12/30/17 19:09 Insulin Human Regular 250 units/ Sodium Chloride 252.5 ml @ 0 mls/hr Q24H IV 11/30/17 19:45 12/30/17 19:44 11/30/17 19:59 2.4 MLS/HR Insulin Aspart (novoLOG ASPART) [facility] 11/30/17 21:00 12/30/17 20:59 Glucose (Glucose 40% Gel) 15-30 GRAMS 15 GRAMS... UD PRN PO 11/30/17 19:45 12/30/17 19:44 Glucose (Glucose Chew Tab) 4-8 Tablets 4 Tabl... UD PRN PO 11/30/17 19:45 12/30/17 19:44 Dextrose (Dextrose 50% 50ML Syringe) 25-50ML OF 50% DW IV FOR... UD PRN IV 11/30/17 19:45 12/30/17 19:44 Glucagon (Glucagon Inj) 1 mg UD PRN SQ 11/30/17 19:45 12/30/17 19:44 Hydromorphone HCl (Dilaudid Inj) 1 mg Q4 PRN IV 12/01/17 07:45 12/15/17 07:44 Famotidine 20 mg/ Syringe 5 ml @ 2.5 mls/min Q24H IV 12/02/17 09:00 01/01/18 08:59 Fentanyl (Duragesic Patch) 75 mcg Q72H TD 12/03/17 09:00 12/17/17 08:59 Miscellaneous (Fentanyl Patch Remove & Waste) 1 ea Q72H N/A 12/03/17 08:59 01/02/18 08:58 Miscellaneous Information (Check Fentanyl Patch Placement) 1 ea QS N/A 12/01/17 16:00 12/31/17 15:59 Insulin Glargine (Lantus Solostar Pen) 16 units Q12 SC 12/02/17 09:00 01/01/18 08:59 Insulin Glargine (Lantus Solostar Pen) 8 units HS ONCE SC 12/01/17 21:00 12/01/17 21:01 Vital Signs: Date Time Temp Pulse Resp B/P (MAP) Pulse Ox O2 Delivery O2 Flow Rate FiO2 12/01/17 10:00 86 20 117/87 (97) 100 Nasal Cannula 2.0 12/01/17 08:00 36.9 77 20 130/78 (95) 100 Mask 10.0 40 12/01/17 08:00 100 Mask 10.0 40 12/01/17 07:50 30 12/01/17 07:24 30 12/01/17 06:00 79 155/76 (102) 99 12/01/17 05:00 74 150/71 (97) 100 12/01/17 04:59 30 12/01/17 04:00 Mechanical Ventilator 30 12/01/17 04:00 30 12/01/17 04:00 37.0 81 164/88 (113) 100 Mechanical Ventilator 30 12/01/17 03:00 78 151/77 (101) 99 12/01/17 02:05 30 12/01/17 02:01 81 148/76 (100) 99 12/01/17 02:00 79 150/77 (101) 12/01/17 01:00 83 134/71 (92) 99 12/01/17 00:01 87 144/76 (98) 98 11/30/17 23:59 Mechanical Ventilator 30 11/30/17 23:59 30 11/30/17 23:07 30 11/30/17 23:00 37.1 87 156/76 (102) 100 11/30/17 22:01 87 150/75 (100) 99 11/30/17 22:00 86 148/73 (98) 11/30/17 21:00 90 130/66 (87) 99 11/30/17 20:21 91 132/60 (84) 99 11/30/17 20:06 86 135/66 (89) 100 11/30/17 20:00 83 171/81 (111) 99 11/30/17 20:00 30 11/30/17 20:00 30 11/30/17 20:00 Mechanical Ventilator 30 11/30/17 19:00 37.0 91 128/68 (88) 98 Mechanical Ventilator 30 11/30/17 18:35 102 20 133/71 99 11/30/17 18:33 30 11/30/17 18:30 91 20 136/78 97 11/30/17 18:25 91 21 129/73 97 11/30/17 18:15 37 98 21 115/68 97 Mechanical Ventilator 30 Laboratory Results: Last 24 Hours Test 11/30/17 14:41 11/30/17 16:37 11/30/17 18:30 11/30/17 18:32 Bedside Hemoglobin 8.2 g/dl 9.2 g/dl Bedside Hematocrit 24 % 27 % Bedside Sodium 140 mEq/L 138 mEq/L Bedside Potassium 4.0 mEq/L 5.0 mEq/L Bedside Chloride 107 mEq/L 107 mEq/L Bedside Total CO2 24 mEq/l 22 mEq/l Anion Gap 13.0 mmol/L 16.0 mmol/L Bedside Blood Urea Nitrogen 23 mg/dl 24 mg/dl Bedside Creatinine 1.4 mg/dl 1.5 mg/dl Bedside Glucose (other) 238 mg/dl 271 mg/dl Bedside Ionized Calcium (Vishnu) 1.11 mmol/l 1.11 mmol/l Blood Gas Sample Site Art Line Bedside Blood Gas pH (LAB) 7.27 Bedside Blood Gas pCO2 (LAB) 40 mmHg Bedside Blood Gas pO2 (LAB) 88 mmHg Bedside Blood Gas HCO3 (LAB) 18 meq/L Bedside Blood Gas Total CO2 19 mEq/l Bedside Blood Gas Base Excess (LAB) -9.0 meq/L Bedside Blood Gas O2 Saturation 95.0 % Adam Test NA Oxygen Delivery Device Ventilator Bedside Oxygen Rate (breaths/min) 19 Blood Gas Minute Ventilation 11 Bedside FiO2 30 % Blood Gas Tidal Volume 559 Blood Gas PEEP 5 Bedside Glucose 262 mg/dl Test 11/30/17 18:56 11/30/17 21:02 11/30/17 22:06 11/30/17 23:17 White Blood Count 12.26 K/uL Red Blood Count 3.20 M/uL Hemoglobin 9.6 g/dL Hematocrit 29.1 % Mean Corpuscular Volume 90.9 fL Mean Corpuscular Hemoglobin 30.0 pg Mean Corpuscular Hemoglobin Concent 33.0 g/dl RDW Standard Deviation 56.4 fL RDW Coefficient of Variation 16.9 % Platelet Count 125 K/uL Mean Platelet Volume 9.2 fL Prothrombin Time 11.4 SECONDS Prothromb Time International Ratio 1.1 Sodium Level 138 mmol/L Potassium Level 5.0 mmol/L Chloride Level 109 mmol/L Carbon Dioxide Level 19 mmol/L Anion Gap 10.0 mmol/L Blood Urea Nitrogen 26 mg/dl Creatinine 2.19 mg/dl Est Creatinine Clear Calc Drug Dose 41.5 ml/min Estimated GFR () 35.8 Estimated GFR (Non- 30.9 BUN/Creatinine Ratio 11.8 Random Glucose 269 mg/dl Calcium Level 7.6 mg/dl Bedside Glucose 268 mg/dl 207 mg/dl 169 mg/dl Test 12/01/17 00:09 12/01/17 01:16 12/01/17 01:57 12/01/17 02:56 Bedside Glucose 235 mg/dl 222 mg/dl 224 mg/dl 209 mg/dl Test 12/01/17 04:15 12/01/17 04:52 12/01/17 04:54 Bedside Glucose 173 mg/dl 192 mg/dl White Blood Count 10.89 K/uL Red Blood Count 2.99 M/uL Hemoglobin 8.9 g/dL Hematocrit 27.2 % Mean Corpuscular Volume 91.0 fL Mean Corpuscular Hemoglobin 29.8 pg Mean Corpuscular Hemoglobin Concent 32.7 g/dl Platelet Count 132 K/uL Mean Platelet Volume 9.3 fL Neutrophils (%) (Auto) 94.7 % Lymphocytes (%) (Auto) 2.7 % Monocytes (%) (Auto) 2.4 % Eosinophils (%) (Auto) 0.0 % Basophils (%) (Auto) 0.0 % Neutrophils # (Auto) 10.32 K/uL Lymphocytes # (Auto) 0.29 K/uL Monocytes # (Auto) 0.26 K/uL Eosinophils # (Auto) 0.00 K/uL Basophils # (Auto) 0.00 K/uL RDW Standard Deviation 57.7 fL RDW Coefficient of Variation 17.5 % Immature Granulocyte % (Auto) 0.2 % Immature Granulocyte # (Auto) 0.02 K/uL Red Blood Cell Morphology Unremarkable Sodium Level 137 mmol/L Potassium Level 4.5 mmol/L Chloride Level 108 mmol/L Carbon Dioxide Level 21 mmol/L Anion Gap 8.0 mmol/L Blood Urea Nitrogen 35 mg/dl Creatinine 2.82 mg/dl Est Creatinine Clear Calc Drug Dose 32.2 ml/min Estimated GFR () 26.4 Estimated GFR (Non- 22.8 BUN/Creatinine Ratio 12.5 Random Glucose 185 mg/dl Calcium Level 7.8 mg/dl
[2017-12-01] MEDS: LACTATED RINGER'S 1000ML 1,000 ML IV SCH ×2 (12:09→20:40)
[2017-12-01 14:45] LABS: CALCIUM 8.3 mg/dl (8.5-10.1); CREATININE 2.51 mg/dl (0.60-1.40); POTASSIUM 4.4 mmol/L (3.5-5.1)
[2017-12-01] MEDS: CHECK FENTANYL PATCH PLACEMENT SCH ×2 (15:46→23:44)
[2017-12-01] MEDS: SODIUM CHLORIDE 0.9% 1000ML 1,000 ML IV SCH (17:31)
--- NOTE | 2017-12-01 17:40 | Progress Note ---
Progress Note Date of Service Dec 01, 2017. Progress Note PM rounds Patient in bed, resting comfortably, good spirits. VSS NAD Good respiratory excursion S1 S2 Soft, nondistended, inc c/d/i, ostomy pink with stents in place Labs as noted below. A/P 62 yo male POD#1 s/p robotic cystectomy, ileal conduit. Looking good. OOBTC encouraged. Will start with low volume clears tomorrow, likely transfer to floor if remains stable. Last 24 Hours Test 11/30/17 18:30 11/30/17 18:32 11/30/17 18:56 11/30/17 21:02 Blood Gas Sample Site Art Line Bedside Blood Gas pH (LAB) 7.27 Bedside Blood Gas pCO2 (LAB) 40 mmHg Bedside Blood Gas pO2 (LAB) 88 mmHg Bedside Blood Gas HCO3 (LAB) 18 meq/L Bedside Blood Gas Total CO2 19 mEq/l Bedside Blood Gas Base Excess (LAB) -9.0 meq/L Bedside Blood Gas O2 Saturation 95.0 % Adam Test NA Oxygen Delivery Device Ventilator Bedside Oxygen Rate (breaths/min) 19 Blood Gas Minute Ventilation 11 Bedside FiO2 30 % Blood Gas Tidal Volume 559 Blood Gas PEEP 5 Bedside Glucose 262 mg/dl 268 mg/dl White Blood Count 12.26 K/uL Red Blood Count 3.20 M/uL Hemoglobin 9.6 g/dL Hematocrit 29.1 % Mean Corpuscular Volume 90.9 fL Mean Corpuscular Hemoglobin 30.0 pg Mean Corpuscular Hemoglobin Concent 33.0 g/dl RDW Standard Deviation 56.4 fL RDW Coefficient of Variation 16.9 % Platelet Count 125 K/uL Mean Platelet Volume 9.2 fL Prothrombin Time 11.4 SECONDS Prothromb Time International Ratio 1.1 Sodium Level 138 mmol/L Potassium Level 5.0 mmol/L Chloride Level 109 mmol/L Carbon Dioxide Level 19 mmol/L Anion Gap 10.0 mmol/L Blood Urea Nitrogen 26 mg/dl Creatinine 2.19 mg/dl Est Creatinine Clear Calc Drug Dose 41.5 ml/min Estimated GFR () 35.8 Estimated GFR (Non- 30.9 BUN/Creatinine Ratio 11.8 Random Glucose 269 mg/dl Calcium Level 7.6 mg/dl Test 11/30/17 22:06 11/30/17 23:17 12/01/17 00:09 12/01/17 01:16 Bedside Glucose 207 mg/dl 169 mg/dl 235 mg/dl 222 mg/dl Test 12/01/17 01:57 12/01/17 02:56 12/01/17 04:15 12/01/17 04:52 Bedside Glucose 224 mg/dl 209 mg/dl 173 mg/dl White Blood Count 10.89 K/uL Red Blood Count 2.99 M/uL Hemoglobin 8.9 g/dL Hematocrit 27.2 % Mean Corpuscular Volume 91.0 fL Mean Corpuscular Hemoglobin 29.8 pg Mean Corpuscular Hemoglobin Concent 32.7 g/dl Platelet Count 132 K/uL Mean Platelet Volume 9.3 fL Neutrophils (%) (Auto) 94.7 % Lymphocytes (%) (Auto) 2.7 % Monocytes (%) (Auto) 2.4 % Eosinophils (%) (Auto) 0.0 % Basophils (%) (Auto) 0.0 % Neutrophils # (Auto) 10.32 K/uL Lymphocytes # (Auto) 0.29 K/uL Monocytes # (Auto) 0.26 K/uL Eosinophils # (Auto) 0.00 K/uL Basophils # (Auto) 0.00 K/uL RDW Standard Deviation 57.7 fL RDW Coefficient of Variation 17.5 % Immature Granulocyte % (Auto) 0.2 % Immature Granulocyte # (Auto) 0.02 K/uL Red Blood Cell Morphology Unremarkable Sodium Level 137 mmol/L Potassium Level 4.5 mmol/L Chloride Level 108 mmol/L Carbon Dioxide Level 21 mmol/L Anion Gap 8.0 mmol/L Blood Urea Nitrogen 35 mg/dl Creatinine 2.82 mg/dl Est Creatinine Clear Calc Drug Dose 32.2 ml/min Estimated GFR () 26.4 Estimated GFR (Non- 22.8 BUN/Creatinine Ratio 12.5 Random Glucose 185 mg/dl Calcium Level 7.8 mg/dl Test 12/01/17 04:54 12/01/17 06:06 12/01/17 06:58 12/01/17 07:59 Bedside Glucose 192 mg/dl 182 mg/dl 153 mg/dl 126 mg/dl Test 12/01/17 09:26 12/01/17 10:21 12/01/17 11:20 12/01/17 12:14 Bedside Glucose 141 mg/dl 164 mg/dl 190 mg/dl 173 mg/dl Test 12/01/17 13:35 12/01/17 14:00 Bedside Glucose 141 mg/dl Sodium Level 137 mmol/L Potassium Level 4.4 mmol/L Chloride Level 108 mmol/L Carbon Dioxide Level 20 mmol/L Anion Gap 9.0 mmol/L Blood Urea Nitrogen 42 mg/dl Creatinine 2.51 mg/dl Est Creatinine Clear Calc Drug Dose 33.1 ml/min Estimated GFR () 30.4 Estimated GFR (Non- 26.2 BUN/Creatinine Ratio 16.8 Random Glucose 137 mg/dl Calcium Level 8.3 mg/dl
[2017-12-02] VITALS (13 sets, daily range): BP systolic 136–168; BP diastolic 73–91; PULSE 67–77; TEMP 36.7–36.9; O2SAT 94–100
[2017-12-02] MEDS: ACETAMINOPHEN IV 650 MG in EMPTY BAG 0 ML IV SCH ×4 (01:41→19:44)
[2017-12-02] MEDS: METRONIDAZOLE / NSS 500 MG in PREMIXED NSS 100 ML IV SCH ×3 (03:53→19:59)
[2017-12-02] MEDS: LACTATED RINGER'S 1000ML 1,000 ML IV SCH ×4 (03:53→23:31)
[2017-12-02] MEDS: CEFOXITIN IV 2,000 MG in DEXTROSE 5% 50ML 50 ML IV SCH ×4 (03:53→21:37)
[2017-12-02] MEDS: INSULIN ASPART 100 UNITS/ML 3 ML PEN SC SCH ×5 (04:00→23:33)
[2017-12-02 05:48] LABS: BASO % 0.1 %; BASO ABS # 0.01 K/uL (0-0.2); HEMATOCRIT 24.7 % (42-52); HEMOGLOBIN 8.1 g/dL (14.0-18.0); IG# 0.05 K/uL (0.00-0.02); LYMPH % 6.3 %; LYMPH ABS # 0.87 K/uL (1.2-3.4); MEAN CELL VOLUME 91.5 fL (80-100); MEAN CORPUSCULAR HGB CONC 32.8 g/dl (32-36); MEAN PLATELET VOLUME 8.2 fL (7.4-10.4); MONO % 6.9 %; MONO ABS # 0.95 K/uL (0.11-0.59); NEUT % 86.3 %; NEUT ABS # 11.92 K/uL (1.4-6.5); PLATELET COUNT 104 K/uL (130-400); RED CELL DISTRIBUTION WIDTH CV 17.4 % (11.5-14.5); RED CELL DISTRIBUTION WIDTH SD 58.1 fL (36.4-46.3)
[2017-12-02] MEDS: METOCLOPRAMIDE HCL INJ 5 MG/ML 2 ML VIAL IV. SCH ×3 (06:14→21:37)
[2017-12-02 06:29] LABS: CALCIUM 8.1 mg/dl (8.5-10.1); CREATININE 1.8 mg/dl (0.60-1.40); POTASSIUM 3.7 mmol/L (3.5-5.1)
--- NOTE | 2017-12-02 08:04 | Progress Note ---
Subjective Date of Service: Dec 02, 2017. Subjective Pt evaluation today including: conversation w/ patient, physical exam, chart review, lab review, review of inpatient medication list Pain: Controlled with SLICING MACHINE TENDER, appropriate postop PO Intake: NPO per orders Voiding: solano catheter in place (ostomy draining well, minimal nephrostomy output) 62 yo male POD#2 s/p robotic cystectomy and ileal conduit. He is OOBTC in ICU, VSS. No specific complaints save surgical pain, controlled with SLICING MACHINE TENDER. Past notes and AM labs noted. Minimal nephrostomy output, 290 cc per TRISH last shift. No significant changes since last night. Problem List Medical Problems: (1) Abdominal pain Status: Acute (2) Acute hyponatremia Status: Acute (3) Bladder neoplasm Status: Acute (4) Constipation Status: Acute (5) Fungal infection Status: Acute (6) Generalized weakness Status: Acute (7) Hematuria Status: Acute (8) Hypomagnesemia Status: Acute (9) Intractable abdominal pain Status: Acute (10) Suprapubic abdominal pain Status: Acute (11) Urinary tract infection associated with nephrostomy catheter Status: Acute (12) UTI (urinary tract infection) Status: Acute Review of Systems Constitutional: No fever, No chills Eyes: No worsening of vision ENT: No hearing loss Respiratory: No wheezing, No shortness of breath Cardiac: No chest pain Abdomen: + pain, No nausea, No vomiting, No diarrhea Male : + see HPI Neurologic: No memory loss, No paralysis Psychiatric: No depression symptoms Endo: No excessive thirst Skin: No new/changing skin lesions, No color change Objective Vital Signs Date Time Temp Pulse Resp B/P (MAP) Pulse Ox O2 Delivery O2 Flow Rate FiO2 12/02/17 06:00 75 141/78 (99) 100 Nasal Cannula 2.0 12/02/17 04:00 98 Nasal Cannula 2.0 12/02/17 04:00 36.7 67 141/83 (102) 98 Nasal Cannula 2.0 12/02/17 02:00 77 137/84 (101) 98 Nasal Cannula 2.0 12/02/17 00:01 36.8 70 18 136/73 (94) 98 Nasal Cannula 2.0 12/01/17 23:59 98 Nasal Cannula 2.0 12/01/17 22:00 82 18 120/74 (89) 100 Nasal Cannula 2.0 12/01/17 20:00 37.1 72 18 146/78 (100) 97 Nasal Cannula 2.0 12/01/17 20:00 Nasal Cannula 2.0 12/01/17 18:00 77 18 145/78 (100) 98 Nasal Cannula 2.0 12/01/17 16:00 Nasal Cannula 2.0 12/01/17 16:00 37.1 86 18 151/89 (109) 97 Nasal Cannula 2.0 12/01/17 14:00 86 18 127/77 (94) 98 Nasal Cannula 2.0 12/01/17 12:00 37.1 88 20 144/87 (106) 99 Nasal Cannula 2.0 12/01/17 12:00 99 Nasal Cannula 2.0 12/01/17 10:00 86 20 117/87 (97) 100 Nasal Cannula 2.0 Physical Exam General Appearance: WD/WN, no apparent distress ENT: normal ENT inspection Neck: supple, no adenopathy Respiratory/Chest: no respiratory distress, no accessory muscle use Cardiovascular: no JVD Abdomen: soft, + pertinent finding (nondistended, inc c/d/i, ostomy pink and functional, stents in place) Extremities: non-tender Neurologic/Psychiatric: alert, oriented x 3 Skin: normal color Laboratory Results Last 24 Hours Test 12/01/17 09:26 12/01/17 10:21 12/01/17 11:20 12/01/17 12:14 Bedside Glucose 141 mg/dl 164 mg/dl 190 mg/dl 173 mg/dl Test 12/01/17 13:35 12/01/17 14:00 12/01/17 14:24 12/01/17 15:33 Bedside Glucose 141 mg/dl 122 mg/dl 128 mg/dl Sodium Level 137 mmol/L Potassium Level 4.4 mmol/L Chloride Level 108 mmol/L Carbon Dioxide Level 20 mmol/L Anion Gap 9.0 mmol/L Blood Urea Nitrogen 42 mg/dl Creatinine 2.51 mg/dl Est Creatinine Clear Calc Drug Dose 33.1 ml/min Estimated GFR () 30.4 Estimated GFR (Non- 26.2 BUN/Creatinine Ratio 16.8 Random Glucose 137 mg/dl Calcium Level 8.3 mg/dl Test 12/01/17 17:28 12/01/17 19:43 12/01/17 20:29 12/01/17 23:37 Bedside Glucose 129 mg/dl 90 mg/dl 76 mg/dl 115 mg/dl Test 12/02/17 04:03 12/02/17 05:36 Bedside Glucose 112 mg/dl White Blood Count 13.80 K/uL Red Blood Count 2.70 M/uL Hemoglobin 8.1 g/dL Hematocrit 24.7 % Mean Corpuscular Volume 91.5 fL Mean Corpuscular Hemoglobin 30.0 pg Mean Corpuscular Hemoglobin Concent 32.8 g/dl Platelet Count 104 K/uL Mean Platelet Volume 8.2 fL Neutrophils (%) (Auto) 86.3 % Lymphocytes (%) (Auto) 6.3 % Monocytes (%) (Auto) 6.9 % Eosinophils (%) (Auto) 0.0 % Basophils (%) (Auto) 0.1 % Neutrophils # (Auto) 11.92 K/uL Lymphocytes # (Auto) 0.87 K/uL Monocytes # (Auto) 0.95 K/uL Eosinophils # (Auto) 0.00 K/uL Basophils # (Auto) 0.01 K/uL RDW Standard Deviation 58.1 fL RDW Coefficient of Variation 17.4 % Immature Granulocyte % (Auto) 0.4 % Immature Granulocyte # (Auto) 0.05 K/uL Hypersegmented Polys OCCASIONAL Red Blood Cell Morphology Unremarkable Sodium Level 140 mmol/L Potassium Level 3.7 mmol/L Chloride Level 109 mmol/L Carbon Dioxide Level 26 mmol/L Anion Gap 5.0 mmol/L Blood Urea Nitrogen 37 mg/dl Creatinine 1.80 mg/dl Est Creatinine Clear Calc Drug Dose 46.1 ml/min Estimated GFR () 45.4 Estimated GFR (Non- 39.2 BUN/Creatinine Ratio 20.3 Random Glucose 120 mg/dl Calcium Level 8.1 mg/dl Assessment and Plan A/P 62 yo male POD#2 s/p robotic cystectomy, ileal conduit. Will start 8 oz clears Q 8 hours today. Increase activity, ambulate in halls. Patient remains stable - will transfer to Med/Surg. Cap nephrostomy tube - minimal output, ostomy functioning well. Monitor labs and TRISH output. SLICING MACHINE TENDER for pain control until tomorrow. Continue Heparin and SCDs for DVT prophylaxis. Will advance diet to unrestricted clears tomorrow if doing well. Continued [facility] stay due to: inadequate po fluid intake, multiple IV medications needed Discharge planning: home with home health
[2017-12-02] MEDS: CHECK FENTANYL PATCH PLACEMENT SCH ×3 (08:46→23:32)
[2017-12-02] MEDS: CITALOPRAM 20 MG TAB PO SCH ×2 (08:47→10:45)
[2017-12-02] MEDS: HEPARIN SOD 5000 UNIT/0.5 ML CARP SQ SCH ×2 (08:48→20:51)
[2017-12-02] MEDS: FAMOTIDINE IV INJ 20 MG in SYRINGE 3 ML IV SCH (08:51)
[2017-12-02] MEDS: CIPROFLOXACIN / D5W 400 MG in PREMIXED IN D5W 200 ML IV SCH ×2 (08:51→21:01)
[2017-12-02] MEDS ORDERED: INSULIN GLARGINE SOLOSTAR 100 UNITS/ML 3 ML PEN SC SCH ×2 (09:00→21:00)
--- NOTE | 2017-12-02 10:13 | Critical Care Progress Note ---
Critical Care Progress Note Date of Service Dec 02, 2017. Attending Dr. Thomas Subjective The patient has no events overnight, pain has been only with movement escalating to 03/06, the patient denies any nausea or vomiting, he started today on liquid diet, his vital signs remained stable, TRISH drainage is minimal, as well as nephrostomy tube. His glucose has been controlled. Objective Physical exam of 12/01/2017 revealed postop patient, currently intubated, does not appear to be in any distress, vital signs are stable except for blood pressure of 151, heart examination S1-S2 regular rate and rhythm, distant breath sounds bilaterally, postop changes, nephrostomy tube and urostomy bag is in place. Trace edema in the periphery. The edema in the upper airway has resolved. His labs also reviewed on 12/01/2017 which revealed worsening of BUN/creatinine, likely postobstructive, the patient have a good urine output, still blood-tinged , his labs also reviewed as well as his chest x-ray which showed the ET tube is approximately 6 cm above the hernán. No infiltrate. No pulmonary vascular congestion either. Leak test was performed at the bedside with excellent leak. Physical exam on 12/02/2017 revealed vital signs are stable except for slightly elevated blood pressure systolic 144. No JVP, S1-S2 regular rate and rhythm, with distant breath sounds bilaterally, abdomen is soft and benign, minimal edema in the periphery. Following commands and answering questions properly. His labs were reviewed which showed leukocytosis, his BUN/creatinine has improved with IV fluid. Hematocrit is stable. Assessment & Plan 1. Postop failure to wean due to pharyngeal and laryngeal edema, resolved, the patient remains extubated. 2. Status post prostatectomy and cystectomy for bladder CA. Appreciate urology input. 3. History of obstructive sleep apnea. Holding off on BiPAP until ileus is improving. 4. History of coronary artery disease status post stenting in 2016. 5. Acute kidney insufficiency on chronic kidney disease, bilateral ureteral stent. Improving. 6. Possible history of COPD, I could not confirm it. 7. History of C. difficile colitis in September 2017, no evidence of diarrhea at this point. 8. Diabetes. Was controlled with insulin drip, he can be treated now with subcu Lantus. Plan: 1. Continue pain control. 2. Current IV fluids at the same rate. 3. Dilaudid RESOURCE MANAGEMENT SPECIALIST. It seems to control his pain. 4. Appreciate pharmacy assistance in the Dilaudid CA. 5. Continue current antibiotics per Dr. Vaca, plan to continue it for 72 hours. 6. The patient was started on clear liquids in the morning. 8 ounces every 8. 7. Blood pressure has been on the borderline will control the pain first before reinstitute his medications. 8. Glucose control per pharmacy, appreciate input. 9. The patient is currently off steroids and likely his blood sugar would be better controlled. 10. DVT prophylaxis. 11. Ambulate. 12. Resume his fentanyl patch. 13. Discontinue fentanyl IV. 14. Disposition plan to regular floor if okay with Dr. Westbrook. Thank you, will follow, critical care time spent with the patient was 35 minutes. Data Medications: Current Inpatient Medications Medications (Trade) Dose Ordered Sig/Young Route Start Time Stop Time Status Last Admin Dose Admin Ciprofloxacin/ Dextrose 400 mg/ Prmx 200 ml @ 100 mls/hr Q12 IV 11/30/17 21:00 12/03/17 10:59 12/02/17 08:51 100 MLS/HR Acetaminophen 650 mg/Empty Bag 65 ml @ 260 mls/hr Q6H IV 11/30/17 20:00 12/30/17 19:59 12/02/17 08:46 260 MLS/HR Metoclopramide HCl (Reglan Inj) 10 mg Q8 IV. 11/30/17 22:00 12/03/17 18:00 12/02/17 06:14 10 MG Naloxone HCl (Narcan Inj) 0.1 mg Q5M PRN IV 11/30/17 17:45 12/02/17 18:00 Hydromorphone HCl (Dilaudid Commercial Litigation Attorney) 25 mg PRN PRN IV 11/30/17 17:45 12/02/17 18:00 12/01/17 09:27 25 MG Sodium Chloride 1,000 ml @ 15 mls/hr Q24H IV 11/30/17 17:35 12/02/17 18:00 Lactated Ringer's 1,000 ml @ 125 mls/hr Q8H IV 11/30/17 19:00 12/30/17 18:59 12/02/17 03:53 125 MLS/HR Albuterol (Ventolin Hfa Inhaler) 2 puffs Q4H PRN INH 11/30/17 18:45 12/30/17 18:44 Citalopram Hydrobromide (celeXA TAB) 10 mg QAM PO 12/01/17 09:00 12/31/17 08:59 Ondansetron HCl (Zofran Inj) 4 mg Q6H PRN IV 11/30/17 17:45 12/30/17 17:44 Heparin Sodium (Porcine) (Heparin Sq 5000 Unit/0.5ml) 5,000 unit Q12H SQ 11/30/17 21:00 12/30/17 20:59 12/02/17 08:48 5,000 UNIT Metronidazole 500 mg/Prmx 100 ml @ 100 mls/hr Q8H IV 11/30/17 20:00 12/03/17 12:59 12/02/17 03:53 100 MLS/HR Cefoxitin Sodium 2000 mg/Dextrose 60 ml @ 120 mls/hr Q6H IV 11/30/17 22:00 12/03/17 16:29 12/02/17 03:53 120 MLS/HR Miscellaneous Information (Consult Glycemic Management Pharmacy) 1 ea UD PRN N/A 11/30/17 19:10 12/30/17 19:09 Glucose (Glucose 40% Gel) 15-30 GRAMS 15 GRAMS... UD PRN PO 11/30/17 19:45 12/30/17 19:44 Glucose (Glucose Chew Tab) 4-8 Tablets 4 Tabl... UD PRN PO 11/30/17 19:45 12/30/17 19:44 Dextrose (Dextrose 50% 50ML Syringe) 25-50ML OF 50% DW IV FOR... UD PRN IV 11/30/17 19:45 12/30/17 19:44 Glucagon (Glucagon Inj) 1 mg UD PRN SQ 11/30/17 19:45 12/30/17 19:44 Hydromorphone HCl (Dilaudid Inj) 1 mg Q4 PRN IV 12/01/17 07:45 12/15/17 07:44 Famotidine 20 mg/ Syringe 5 ml @ 2.5 mls/min Q24H IV 12/02/17 09:00 01/01/18 08:59 12/02/17 08:51 2.5 MLS/MIN Fentanyl (Duragesic Patch) 75 mcg Q72H TD 12/03/17 09:00 12/17/17 08:59 Miscellaneous (Fentanyl Patch Remove & Waste) 1 ea Q72H N/A 12/03/17 08:59 01/02/18 08:58 Miscellaneous Information (Check Fentanyl Patch Placement) 1 ea QS N/A 12/01/17 16:00 12/31/17 15:59 12/02/17 08:46 1 EA Insulin Glargine (Lantus Solostar Pen) 16 units Q12 SC 12/02/17 09:00 01/01/18 08:59 Future Hold Heparin Sodium (Porcine) (Heparin 100 Unit/ml 5ml Flush) 5 ml PRN PRN FLUSH 12/01/17 16:00 12/31/17 15:59 Insulin Aspart (novoLOG ASPART) SLIDING SCALE Q4 SC 12/02/17 00:00 01/01/18 00:00 Vital Signs: Date Time Temp Pulse Resp B/P (MAP) Pulse Ox O2 Delivery O2 Flow Rate FiO2 12/02/17 10:01 68 151/84 (106) 96 12/02/17 09:00 77 94 12/02/17 08:01 36.8 76 16 161/91 (114) 99 Nasal Cannula 2.0 12/02/17 08:00 Nasal Cannula 2.0 12/02/17 07:00 76 100 Nasal Cannula 2.0 12/02/17 06:00 75 141/78 (99) 100 Nasal Cannula 2.0 12/02/17 04:00 98 Nasal Cannula 2.0 12/02/17 04:00 36.7 67 141/83 (102) 98 Nasal Cannula 2.0 12/02/17 02:00 77 137/84 (101) 98 Nasal Cannula 2.0 12/02/17 00:01 36.8 70 18 136/73 (94) 98 Nasal Cannula 2.0 12/01/17 23:59 98 Nasal Cannula 2.0 12/01/17 22:00 82 18 120/74 (89) 100 Nasal Cannula 2.0 12/01/17 20:00 37.1 72 18 146/78 (100) 97 Nasal Cannula 2.0 12/01/17 20:00 Nasal Cannula 2.0 12/01/17 18:00 77 18 145/78 (100) 98 Nasal Cannula 2.0 12/01/17 16:00 Nasal Cannula 2.0 12/01/17 16:00 37.1 86 18 151/89 (109) 97 Nasal Cannula 2.0 12/01/17 14:00 86 18 127/77 (94) 98 Nasal Cannula 2.0 12/01/17 12:00 37.1 88 20 144/87 (106) 99 Nasal Cannula 2.0 12/01/17 12:00 99 Nasal Cannula 2.0 Laboratory Results: Last 24 Hours Test 12/01/17 10:21 12/01/17 11:20 12/01/17 12:14 12/01/17 13:35 Bedside Glucose 164 mg/dl 190 mg/dl 173 mg/dl 141 mg/dl Test 12/01/17 14:00 12/01/17 14:24 12/01/17 15:33 12/01/17 17:28 Sodium Level 137 mmol/L Potassium Level 4.4 mmol/L Chloride Level 108 mmol/L Carbon Dioxide Level 20 mmol/L Anion Gap 9.0 mmol/L Blood Urea Nitrogen 42 mg/dl Creatinine 2.51 mg/dl Est Creatinine Clear Calc Drug Dose 33.1 ml/min Estimated GFR () 30.4 Estimated GFR (Non- 26.2 BUN/Creatinine Ratio 16.8 Random Glucose 137 mg/dl Calcium Level 8.3 mg/dl Bedside Glucose 122 mg/dl 128 mg/dl 129 mg/dl Test 12/01/17 19:43 12/01/17 20:29 12/01/17 23:37 12/02/17 04:03 Bedside Glucose 90 mg/dl 76 mg/dl 115 mg/dl 112 mg/dl Test 12/02/17 05:36 White Blood Count 13.80 K/uL Red Blood Count 2.70 M/uL Hemoglobin 8.1 g/dL Hematocrit 24.7 % Mean Corpuscular Volume 91.5 fL Mean Corpuscular Hemoglobin 30.0 pg Mean Corpuscular Hemoglobin Concent 32.8 g/dl Platelet Count 104 K/uL Mean Platelet Volume 8.2 fL Neutrophils (%) (Auto) 86.3 % Lymphocytes (%) (Auto) 6.3 % Monocytes (%) (Auto) 6.9 % Eosinophils (%) (Auto) 0.0 % Basophils (%) (Auto) 0.1 % Neutrophils # (Auto) 11.92 K/uL Lymphocytes # (Auto) 0.87 K/uL Monocytes # (Auto) 0.95 K/uL Eosinophils # (Auto) 0.00 K/uL Basophils # (Auto) 0.01 K/uL RDW Standard Deviation 58.1 fL RDW Coefficient of Variation 17.4 % Immature Granulocyte % (Auto) 0.4 % Immature Granulocyte # (Auto) 0.05 K/uL Hypersegmented Polys OCCASIONAL Red Blood Cell Morphology Unremarkable Sodium Level 140 mmol/L Potassium Level 3.7 mmol/L Chloride Level 109 mmol/L Carbon Dioxide Level 26 mmol/L Anion Gap 5.0 mmol/L Blood Urea Nitrogen 37 mg/dl Creatinine 1.80 mg/dl Est Creatinine Clear Calc Drug Dose 46.1 ml/min Estimated GFR () 45.4 Estimated GFR (Non- 39.2 BUN/Creatinine Ratio 20.3 Random Glucose 120 mg/dl Calcium Level 8.1 mg/dl
[2017-12-02] MEDS ORDERED: NURSING VERBAL MED ORDER ONE (10:45)
[2017-12-02] MEDS ORDERED: SIMETHICONE 80 MG CHEW PO PRN (11:00)
[2017-12-02] MEDS: DOCUSATE SODIUM 100 MG CAP PO SCH (11:16)
[2017-12-02] MEDS: HYDROmorphone HCL 0.5MG/ML 50 ML CASSETTE IV PRN ×3 (11:46→16:04)
[2017-12-02] MEDS ORDERED: INSULIN GLARGINE SOLOSTAR 100 UNITS/ML 3 ML PEN SC ONE ×2 (12:00→12:30)
--- NOTE | 2017-12-02 12:58 | Pharmacy Progress Note ---
Pharmacy Glycemic Short Note 2 Date of Service Dec 02, 2017. OUTPATIENT ANTIDIABETIC REGIMEN: * glimpiride 4 mg PO BID plus metformin ER 750 mg PO BID plus Prandin 0.5 mg in the morning plus Januvia 100 mg PO in the morning ASSESSMENT: * Mr Nishant Anna is a 62 y/o M with a PMH of CAD with stents, bladder cancer, hypertension, and well controlled type 2 diabetes who presents POD 2 for prostatectomy, cystectomy, lymphadenectomy, and nephrostomy with ileal conduit. He had significant airway edema after surgery with required prolonged intubation and three doses of Solu-Medrol 40 mg IV. The patient was extubated yesterday and has been started on a clear liquid diet today. * He was started on an insulin infusion on 11/30/17 (day of surgery) which continued until 1999 last night. He received 32 units of insulin yesterday as a basal dose in the morning. Patient's blood sugars were well controlled yesterday ranging from 90-190 mg/dL .... he did have a low blood sugar this morning. Fasting was 151 mg/dL and lunch blood sugar was 167 mg/dL. Patient is tolerating diet through drinking water and eating some candy. * For Lantus, since 32 units produced a low blood sugar will reduce dose by 50% and distribute twice daily. Give 10 units now then 8 units tonight if blood sugar over 180 mg/dL. Since patient had steroids, these profoundly affect post- prandial blood sugars therefore will be more aggressive with Novolog. Continue weight-based stress of 3 for now. PLAN FOR INPATIENT GLYCEMIC CONTROL: * Hold outpatient oral diabetes medications * Basal insulin * Lantus 10 units SQ x 1 then 8 units if blood sugar over 180 mg/dL tonight * Bolus insulin * NovoLog per scale ACHS or Q6hrs while NPO * Goal Range: Low 120 mg/dL - High 160 mg/dL * Correction Factor: 20 mg/dL/unit * Nutritional / Prandial insulin per carb ratio of 1 unit per 7 grams CHO consumed PLAN FOR DISCHARGE: * May continue home regimen if well tolerated.
[2017-12-02] MEDS: SODIUM CHLORIDE 0.9% 1000ML 1,000 ML IV SCH (17:09)
[2017-12-02] MEDS: HYDROmorphone INJ 2 MG/ML SYR/VIAL IV PRN (23:29)
[2017-12-03] MEDS: ACETAMINOPHEN IV 650 MG in EMPTY BAG 0 ML IV SCH ×4 (01:52→20:34)
[2017-12-03] MEDS: METRONIDAZOLE / NSS 500 MG in PREMIXED NSS 100 ML IV SCH ×2 (03:36→12:13)
[2017-12-03] MEDS: CEFOXITIN IV 2,000 MG in DEXTROSE 5% 50ML 50 ML IV SCH ×3 (03:36→16:25)
[2017-12-03] MEDS: ONDANSETRON INJ 2 MG/ML 2 ML VIAL IV PRN ×2 (03:41→12:13)
[2017-12-03] MEDS: HYDROmorphone INJ 2 MG/ML SYR/VIAL IV PRN ×3 (04:42→13:35)
[2017-12-03] MEDS: METOCLOPRAMIDE HCL INJ 5 MG/ML 2 ML VIAL IV. SCH ×2 (05:33→13:36)
[2017-12-03] MEDS: INSULIN ASPART 100 UNITS/ML 3 ML PEN SC SCH ×4 (05:38→20:42)
[2017-12-03 06:06] LABS: EOS % 0.1 %; EOS ABS # 0.01 K/uL (0-0.5); HEMATOCRIT 25.9 % (42-52); HEMOGLOBIN 8.7 g/dL (14.0-18.0); IG# 0.04 K/uL (0.00-0.02); LYMPH % 3.5 %; LYMPH ABS # 0.49 K/uL (1.2-3.4); MEAN CELL VOLUME 90.6 fL (80-100); MEAN CORPUSCULAR HEMOGLOBIN 30.4 pg (25-34); MEAN CORPUSCULAR HGB CONC 33.6 g/dl (32-36); MEAN PLATELET VOLUME 8.5 fL (7.4-10.4); MONO % 8.9 %; MONO ABS # 1.25 K/uL (0.11-0.59); NEUT % 87.2 %; NEUT ABS # 12.22 K/uL (1.4-6.5); PLATELET COUNT 124 K/uL (130-400); RED CELL DISTRIBUTION WIDTH CV 16.4 % (11.5-14.5); RED CELL DISTRIBUTION WIDTH SD 55.1 fL (36.4-46.3); WHITE BLOOD COUNT 14.01 K/uL (4.8-10.8)
[2017-12-03 06:44] LABS: CALCIUM 8.3 mg/dl (8.5-10.1); CREATININE 1.28 mg/dl (0.60-1.40); POTASSIUM 3.6 mmol/L (3.5-5.1)
[2017-12-03 07:51] VITALS: BP 154/84; PULSE 76; TEMP 36.9; O2SAT 97
[2017-12-03] MEDS: FENTANYL PATCH REMOVE & WASTE SCH (07:54)
[2017-12-03] MEDS: CHECK FENTANYL PATCH PLACEMENT SCH ×3 (07:55→23:24)
[2017-12-03] MEDS: LACTATED RINGER'S 1000ML 1,000 ML IV SCH (08:30)
[2017-12-03] MEDS: FAMOTIDINE IV INJ 20 MG in SYRINGE 3 ML IV SCH (08:57)
[2017-12-03] MEDS: FENTANYL 75 MCG/HR TDSY TD SCH (08:58)
[2017-12-03] MEDS ORDERED: INSULIN GLARGINE SOLOSTAR 100 UNITS/ML 3 ML PEN SC SCH (09:00)
[2017-12-03] MEDS: DOCUSATE SODIUM 100 MG CAP PO SCH (09:03)
[2017-12-03] MEDS: CITALOPRAM 20 MG TAB PO SCH (09:03)
[2017-12-03] MEDS: CIPROFLOXACIN / D5W 400 MG in PREMIXED IN D5W 200 ML IV SCH (09:04)
[2017-12-03] MEDS: HEPARIN SOD 5000 UNIT/0.5 ML CARP SQ SCH ×2 (09:08→20:45)
--- NOTE | 2017-12-03 10:31 | Progress Note ---
Subjective Date of Service: Dec 03, 2017. Subjective Pt evaluation today including: conversation w/ patient, conversation w/ family , physical exam, chart review, lab review, review of inpatient medication list Pain: Controlled with meds, IV dilaudid PRN PO Intake: Mikal restricted clears Voiding: solano catheter in place (ostomy draining clear fluid) 62 yo male POD#3 s/p robotic cystectomy and ileal conduit. in room, patient in good spirits, nursing in room for rounds. Patient denies n/v, + copious flatus, appropriate post-surgical abdominal pain without bloating, + ambulating in hallways. 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 He denies solid BM, no other complaints. Labwork reviewed - Hb stable, Cr further normalized. Good UOP, ~ 300 cc per TRISH per shift, serosanguinous. Nephrostomy capped yesterday without issue. Problem List Medical Problems: (1) Abdominal pain Status: Acute (2) Acute hyponatremia Status: Acute (3) Bladder neoplasm Status: Acute (4) Constipation Status: Acute (5) Fungal infection Status: Acute (6) Generalized weakness Status: Acute (7) Hematuria Status: Acute (8) Hypomagnesemia Status: Acute (9) Intractable abdominal pain Status: Acute (10) Suprapubic abdominal pain Status: Acute (11) Urinary tract infection associated with nephrostomy catheter Status: Acute (12) UTI (urinary tract infection) Status: Acute Review of Systems Constitutional: No fever, No chills Eyes: No worsening of vision ENT: No hearing loss Respiratory: No wheezing, No shortness of breath Cardiac: No chest pain Abdomen: + pain, No nausea, No vomiting, No diarrhea Male : + see HPI Neurologic: No memory loss, No paralysis Psychiatric: No depression symptoms Heme: No clotting problems, No swollen lymph nodes Skin: No new/changing skin lesions Objective Vital Signs Date Time Temp Pulse Resp B/P (MAP) Pulse Ox O2 Delivery O2 Flow Rate FiO2 12/03/17 07:51 36.9 76 18 154/84 (107) 97 Room Air 12/02/17 23:25 Room Air 12/02/17 23:25 36.7 72 18 164/85 (111) 97 Room Air 12/02/17 15:10 Room Air 12/02/17 15:04 36.9 72 16 167/89 (115) 96 Room Air 12/02/17 14:00 Room Air 12/02/17 12:38 155/87 (109) 12/02/17 11:57 36.8 70 18 168/74 (105) 96 Room Air 12/02/17 11:53 36.8 68 16 96 Physical Exam General Appearance: WD/WN, no apparent distress Eyes: normal inspection ENT: normal ENT inspection, hearing grossly normal Neck: supple, no adenopathy Respiratory/Chest: no respiratory distress, no accessory muscle use Cardiovascular: no JVD Abdomen: non tender, soft, + pertinent finding (inc c/d/i, ostomy pink) Extremities: non-tender Neurologic/Psychiatric: alert, oriented x 3 Skin: normal color Laboratory Results Last 24 Hours Test 12/02/17 10:35 12/02/17 12:20 12/02/17 18:02 12/02/17 20:43 Bedside Glucose 167 mg/dl 165 mg/dl 167 mg/dl 161 mg/dl Test 12/02/17 23:24 12/03/17 05:38 12/03/17 05:49 Bedside Glucose 160 mg/dl 147 mg/dl White Blood Count 14.01 K/uL Red Blood Count 2.86 M/uL Hemoglobin 8.7 g/dL Hematocrit 25.9 % Mean Corpuscular Volume 90.6 fL Mean Corpuscular Hemoglobin 30.4 pg Mean Corpuscular Hemoglobin Concent 33.6 g/dl Platelet Count 124 K/uL Mean Platelet Volume 8.5 fL Neutrophils (%) (Auto) 87.2 % Lymphocytes (%) (Auto) 3.5 % Monocytes (%) (Auto) 8.9 % Eosinophils (%) (Auto) 0.1 % Basophils (%) (Auto) 0.0 % Neutrophils # (Auto) 12.22 K/uL Lymphocytes # (Auto) 0.49 K/uL Monocytes # (Auto) 1.25 K/uL Eosinophils # (Auto) 0.01 K/uL Basophils # (Auto) 0.00 K/uL RDW Standard Deviation 55.1 fL RDW Coefficient of Variation 16.4 % Immature Granulocyte % (Auto) 0.3 % Immature Granulocyte # (Auto) 0.04 K/uL Toxic Granulation OCCASIONAL Toxic Vacuolation OCCASIONAL Red Blood Cell Morphology Unremarkable Sodium Level 138 mmol/L Potassium Level 3.6 mmol/L Chloride Level 105 mmol/L Carbon Dioxide Level 27 mmol/L Anion Gap 6.0 mmol/L Blood Urea Nitrogen 21 mg/dl Creatinine 1.28 mg/dl Est Creatinine Clear Calc Drug Dose 64.8 ml/min Estimated GFR () 68.6 Estimated GFR (Non- 59.2 BUN/Creatinine Ratio 16.3 Random Glucose 138 mg/dl Calcium Level 8.3 mg/dl Assessment and Plan A/P 62 yo male POD#3 s/p robotic cystectomy, ileal conduit, doing well. Will increase to unrestricted clear liquids today. Slow IVF, change to 1/2 NS + 20 K. Will add Toradol PRN and UItram to regimen seen normalization of renal function. Continue regular ambulation in halls. Monitor labs, will check TRISH Cr seen borderline output. DC GI prophylaxis after today's dose. Care d/w patient and who vocalize good understanding of the treatment plan. Continued [facility] stay due to: inadequate po fluid intake, multiple IV medications needed Discharge planning: home with home health
[2017-12-03] MEDS ORDERED: D5W AND 1/2NSS + 20MEQ KCL 1,000 ML IV SCH (10:45)
--- NOTE | 2017-12-03 10:53 | Pharmacy Progress Note ---
Pharmacy Glycemic Short Note 2 Date of Service Dec 03, 2017. OUTPATIENT ANTIDIABETIC REGIMEN: * glimpiride 4 mg PO BID plus metformin ER 750 mg PO BID plus Prandin 0.5 mg in the morning plus Januvia 100 mg PO in the morning ASSESSMENT: * Mr Nishant Anna is a 62 y/o M with a PMH of CAD with stents, bladder cancer, hypertension, and well controlled type 2 diabetes who presents POD 3 for prostatectomy, cystectomy, lymphadenectomy, and nephrostomy with ileal conduit. He had significant airway edema after surgery with required prolonged intubation and three doses of Solu-Medrol 40 mg IV. The patient was extubated 2 days ago and has been started on an unrestricted clear liquid diet today. * Blood sugars yesterday were [phone] mg/dL and patient received 11 units of insulin with 10 units of Lantus. Fasting today is 147 mg/dL which is slightly lower yesterday. Give Lantus 10 units and provide a dose of 10 units at bedtime if blood sugar over 180 mg/dL. Continue current Novolog parameters as they will be used as diet progresses today. PLAN FOR INPATIENT GLYCEMIC CONTROL: * Hold outpatient oral diabetes medications * Basal insulin * Lantus 10 units SQ qAM then 10 units if blood sugar over 180 mg/dL HS * Bolus insulin * NovoLog per scale ACHS or Q6hrs while NPO * Goal Range: Low 120 mg/dL - High 160 mg/dL * Correction Factor: 20 mg/dL/unit * Nutritional / Prandial insulin per carb ratio of 1 unit per 7 grams CHO consumed PLAN FOR DISCHARGE: * May continue home regimen if well tolerated.
[2017-12-03] MEDS ORDERED: NURSING VERBAL MED ORDER ONE ×2 (11:00→21:00)
[2017-12-03] MEDS: SODIUM CHLOR 0.45% + 20MEQ KCL 1,000 ML IV SCH ×2 (11:23→23:20)
[2017-12-03 14:56] VITALS: BP 162/86; PULSE 69; TEMP 37; O2SAT 99
[2017-12-03] MEDS: TRAMADOL HCL 50 MG TAB PO PRN ×2 (16:26→23:26)
[2017-12-03] MEDS: INSULIN GLARGINE SOLOSTAR 100 UNITS/ML 3 ML PEN SC SCH (20:41)
[2017-12-03 22:52] VITALS: BP 151/76; PULSE 65; TEMP 36.7; O2SAT 99
[2017-12-04] MEDS: ACETAMINOPHEN IV 650 MG in EMPTY BAG 0 ML IV SCH ×2 (02:14→08:01)
[2017-12-04 06:08] LABS: EOS % 0.8 %; EOS ABS # 0.07 K/uL (0-0.5); HEMATOCRIT 24.6 % (42-52); HEMOGLOBIN 8.3 g/dL (14.0-18.0); IG# 0.02 K/uL (0.00-0.02); LYMPH % 11.1 %; LYMPH ABS # 0.98 K/uL (1.2-3.4); MEAN CELL VOLUME 89.5 fL (80-100); MEAN CORPUSCULAR HEMOGLOBIN 30.2 pg (25-34); MEAN CORPUSCULAR HGB CONC 33.7 g/dl (32-36); MEAN PLATELET VOLUME 8.4 fL (7.4-10.4); MONO % 9.2 %; MONO ABS # 0.81 K/uL (0.11-0.59); NEUT % 78.7 %; NEUT ABS # 6.94 K/uL (1.4-6.5); PLATELET COUNT 102 K/uL (130-400); RED CELL DISTRIBUTION WIDTH CV 16.1 % (11.5-14.5); RED CELL DISTRIBUTION WIDTH SD 52.8 fL (36.4-46.3); WHITE BLOOD COUNT 8.82 K/uL (4.8-10.8)
[2017-12-04 06:36] LABS: CALCIUM 7.8 mg/dl (8.5-10.1); CREATININE 0.99 mg/dl (0.60-1.40); POTASSIUM 3.4 mmol/L (3.5-5.1)
[2017-12-04 07:48] VITALS: BP 142/84; PULSE 72; TEMP 36.9; O2SAT 96
[2017-12-04] MEDS: TRAMADOL HCL 50 MG TAB PO PRN ×3 (07:58→21:36)
[2017-12-04] MEDS: CHECK FENTANYL PATCH PLACEMENT SCH ×2 (08:01→15:54)
[2017-12-04] MEDS: SODIUM CHLOR 0.45% + 20MEQ KCL 1,000 ML IV SCH ×2 (08:55→19:51)
[2017-12-04] MEDS: INSULIN ASPART 100 UNITS/ML 3 ML PEN SC SCH ×4 (08:58→21:00)
[2017-12-04] MEDS: DOCUSATE SODIUM 100 MG CAP PO SCH (08:59)
[2017-12-04] MEDS: HEPARIN SOD 5000 UNIT/0.5 ML CARP SQ SCH ×2 (08:59→21:45)
[2017-12-04] MEDS ORDERED: INSULIN GLARGINE SOLOSTAR 100 UNITS/ML 3 ML PEN SC SCH (09:00)
[2017-12-04] MEDS: CITALOPRAM 20 MG TAB PO SCH (09:00)
--- NOTE | 2017-12-04 09:30 | Progress Note ---
Subjective Date of Service: Dec 04, 2017. Subjective Pt evaluation today including: conversation w/ patient, chart review, lab review 62 yo male s/p cystectomy. Pt doing well this morning. In the process of having his ostomy device changed. Denies n/v. Tolerating clear liquids. + flatus. No BMs. PCN capped. Cr has normalized since surgery. White count normalized as well. H&H stable. I&Os acceptable. Problem List Medical Problems: (1) Abdominal pain Status: Acute (2) Acute hyponatremia Status: Acute (3) Bladder neoplasm Status: Acute (4) Constipation Status: Acute (5) Fungal infection Status: Acute (6) Generalized weakness Status: Acute (7) Hematuria Status: Acute (8) Hypomagnesemia Status: Acute (9) Intractable abdominal pain Status: Acute (10) Suprapubic abdominal pain Status: Acute (11) Urinary tract infection associated with nephrostomy catheter Status: Acute (12) UTI (urinary tract infection) Status: Acute Review of Systems Constitutional: No fever, No chills Respiratory: No shortness of breath Cardiac: No chest pain Abdomen: No pain, No nausea, No vomiting Male : No hematuria Heme: No abnormal bleeding/bruising Objective Vital Signs Date Time Temp Pulse Resp B/P (MAP) Pulse Ox O2 Delivery O2 Flow Rate FiO2 12/04/17 07:48 36.9 72 15 142/84 (103) 96 Room Air 12/03/17 23:25 Room Air 12/03/17 22:52 36.7 65 16 151/76 (101) 99 Room Air 12/03/17 16:15 Room Air 12/03/17 14:56 37.0 69 16 162/86 (111) 99 Room Air Physical Exam General Appearance: no apparent distress Eyes: normal inspection ENT: hearing grossly normal Neck: no JVD Respiratory/Chest: no respiratory distress, no accessory muscle use Cardiovascular: no JVD Abdomen: + pertinent finding (stoma viable, bright [place] colored; incisions c/ d/i; TRISH draining serous fluid) Extremities: normal inspection Neurologic/Psychiatric: alert, normal mood/affect, oriented x 3 Skin: normal color Laboratory Results Last 24 Hours Test 12/03/17 10:51 12/03/17 12:20 12/03/17 17:18 12/03/17 20:41 Body Fluid Creatinine 0.98 mg/dl Bedside Glucose 150 mg/dl 133 mg/dl 136 mg/dl Test 12/04/17 05:48 12/04/17 07:54 White Blood Count 8.82 K/uL Red Blood Count 2.75 M/uL Hemoglobin 8.3 g/dL Hematocrit 24.6 % Mean Corpuscular Volume 89.5 fL Mean Corpuscular Hemoglobin 30.2 pg Mean Corpuscular Hemoglobin Concent 33.7 g/dl Platelet Count 102 K/uL Mean Platelet Volume 8.4 fL Neutrophils (%) (Auto) 78.7 % Lymphocytes (%) (Auto) 11.1 % Monocytes (%) (Auto) 9.2 % Eosinophils (%) (Auto) 0.8 % Basophils (%) (Auto) 0.0 % Neutrophils # (Auto) 6.94 K/uL Lymphocytes # (Auto) 0.98 K/uL Monocytes # (Auto) 0.81 K/uL Eosinophils # (Auto) 0.07 K/uL Basophils # (Auto) 0.00 K/uL RDW Standard Deviation 52.8 fL RDW Coefficient of Variation 16.1 % Immature Granulocyte % (Auto) 0.2 % Immature Granulocyte # (Auto) 0.02 K/uL Red Blood Cell Morphology Unremarkable Sodium Level 137 mmol/L Potassium Level 3.4 mmol/L Chloride Level 103 mmol/L Carbon Dioxide Level 27 mmol/L Anion Gap 7.0 mmol/L Blood Urea Nitrogen 15 mg/dl Creatinine 0.99 mg/dl Est Creatinine Clear Calc Drug Dose 83.8 ml/min Estimated GFR () 93.6 Estimated GFR (Non- 80.7 BUN/Creatinine Ratio 15.5 Random Glucose 110 mg/dl Calcium Level 7.8 mg/dl Bedside Glucose 131 mg/dl Assessment and Plan POD #4 s/p cystectomy AFVSS. Pt doing well post-op. Will advance to a mechanical soft diet today. Continue SCDs/TEDs/Hep subq for DVT prophylaxis. Continue PT/OT and ambulation to hallway TID. Encourage IS. Pain management with Ofirmev PRN (will change from scheduled dosing), Toradol PRN, and Ultram PRN. Plan for home health upon discharge. Continued [facility] stay due to: inadequate po fluid intake, multiple IV medications needed Discharge planning: home with home health
[2017-12-04 10:04] VITALS: O2SAT 96
--- NOTE | 2017-12-04 10:08 | Medical Student: [facility] ---
Med Student Progress Note Date of Service Dec 04, 2017. Subjective Pt evaluation today including: conversation w/ patient, physical exam, chart review, lab review, review of studies, review of inpatient medication list PO Intake: tolerating clear liquids Voiding: no voiding problems (urostomy tube draining well) Review of Systems Constitutional: No fever, No chills Respiratory: No cough, No shortness of breath Cardiac: No chest pain Abdomen: + see HPI (+ flatus ), No pain, No nausea Male : + see HPI Heme: No abnormal bleeding/bruising Endo: No fatigue Skin: + see HPI Objective Vital Signs Date Time Temp Pulse Resp B/P (MAP) Pulse Ox O2 Delivery O2 Flow Rate FiO2 12/04/17 07:48 36.9 72 15 142/84 (103) 96 Room Air 12/03/17 23:25 Room Air 12/03/17 22:52 36.7 65 16 151/76 (101) 99 Room Air 12/03/17 16:15 Room Air 12/03/17 14:56 37.0 69 16 162/86 (111) 99 Room Air Physical Exam General Appearance: WD/WN, no apparent distress ENT: hearing grossly normal Respiratory/Chest: no respiratory distress, no accessory muscle use Cardiovascular: no JVD Abdomen: soft, + pertinent finding (urostomy site beefy red with good UO. TRISH draining serous fluid.) Neurologic/Psychiatric: alert, normal mood/affect (in good spirits ), oriented x 3 Skin: normal color, warm/dry, + pertinent finding (abdominal incisions c/d/i - no erythema, warmth, drainage or other signs of infection) Lymphatic: no adenopathy Laboratory Results Last 24 Hours Test 12/03/17 10:51 12/03/17 12:20 12/03/17 17:18 12/03/17 20:41 Body Fluid Creatinine 0.98 mg/dl Bedside Glucose 150 mg/dl 133 mg/dl 136 mg/dl Test 12/04/17 05:48 12/04/17 07:54 White Blood Count 8.82 K/uL Red Blood Count 2.75 M/uL Hemoglobin 8.3 g/dL Hematocrit 24.6 % Mean Corpuscular Volume 89.5 fL Mean Corpuscular Hemoglobin 30.2 pg Mean Corpuscular Hemoglobin Concent 33.7 g/dl Platelet Count 102 K/uL Mean Platelet Volume 8.4 fL Neutrophils (%) (Auto) 78.7 % Lymphocytes (%) (Auto) 11.1 % Monocytes (%) (Auto) 9.2 % Eosinophils (%) (Auto) 0.8 % Basophils (%) (Auto) 0.0 % Neutrophils # (Auto) 6.94 K/uL Lymphocytes # (Auto) 0.98 K/uL Monocytes # (Auto) 0.81 K/uL Eosinophils # (Auto) 0.07 K/uL Basophils # (Auto) 0.00 K/uL RDW Standard Deviation 52.8 fL RDW Coefficient of Variation 16.1 % Immature Granulocyte % (Auto) 0.2 % Immature Granulocyte # (Auto) 0.02 K/uL Red Blood Cell Morphology Unremarkable Sodium Level 137 mmol/L Potassium Level 3.4 mmol/L Chloride Level 103 mmol/L Carbon Dioxide Level 27 mmol/L Anion Gap 7.0 mmol/L Blood Urea Nitrogen 15 mg/dl Creatinine 0.99 mg/dl Est Creatinine Clear Calc Drug Dose 83.8 ml/min Estimated GFR () 93.6 Estimated GFR (Non- 80.7 BUN/Creatinine Ratio 15.5 Random Glucose 110 mg/dl Calcium Level 7.8 mg/dl Bedside Glucose 131 mg/dl Assessment and Plan Assessment and Plan: Nishant is POD day #4 s/p cystoprostatectomy with bilateral stent and ileal conduit placement. He is in good spirits, pain well controlled with PRN IV medication. TRISH draining 200ml serous today, Cr stable, Urostomy draining 400ml clear yellow today, Nephrostomy tube capped. GI - tolerating clear liquids, advance to mechanical soft today. Home health care and ostomy nursing consulted for discharge. Continue to monitor closely with primary service. Continued [facility] stay due to: inadequate po fluid intake, multiple IV medications needed Discharge planning: home with home health
--- NOTE | 2017-12-04 13:37 | Pharmacy Progress Note ---
Pharmacy Glycemic Short Note 2 Date of Service Dec 04, 2017. OUTPATIENT ANTIDIABETIC REGIMEN: * Glimpiride 4 mg PO BIDM * Metformin ER 750 mg PO BIDM * Prandin 0.5 mg in the morning * Januvia 100 mg PO in the morning ASSESSMENT: * 62yo T2DM with adequate outpatient control per recent A1c. However, A1c may be somewhat unreliable secondary to cancer/chemo/anemia. * Pt is maintained on multiple oral agents as an outpatient. * Oral agents are not recommended for inpatient use d/t drug interactions, changing PO intake, and difficulty titrating for acute hyper/hypoglycemia. ADA recommends re-initiating outpatient oral agents 1-2 days prior to discharge if/ when appropriate if they were held on admission. * Outpatient oral agents held on admission and weight IV insulin infusion was required initially post-operatively secondary to stress, steroids, and surgery. Pt transitioned to SQ basal bolus insulin regimen which is the recommended regimen for inpatient glycemic control on 12/01/17 * Pharmacy has been titrating regimen daily based on BSG trends. * Pt has been requiring ~ 10 units of insulin /day with adequate control * Majority of regimen is basal insulin but pt has been NPO/clear liquid diet so this is appropriate * Diet advanced today, expect insulin needs to increase with increased PO intake. Ordered CR insulin should be sufficient for controlling post-prandial hyperglycemia. PLAN FOR INPATIENT GLYCEMIC CONTROL: no changes needed at this time. * Hold outpatient oral diabetes medications * Basal insulin * Lantus 10 units SQ qAM then 10 units if blood sugar over 180 mg/dL HS * Bolus insulin * NovoLog per scale ACHS or Q6hrs while NPO * Goal Range: Low 110 mg/dL - High 150 mg/dL * Correction Factor: 20 mg/dL/unit * Nutritional / Prandial insulin per carb ratio of 1 unit per 7 grams CHO consumed
[2017-12-04 15:30] VITALS: BP 139/80; PULSE 64; TEMP 36.8; O2SAT 95
[2017-12-04] MEDS: ONDANSETRON INJ 2 MG/ML 2 ML VIAL IV PRN (18:40)
[2017-12-04] MEDS: INSULIN GLARGINE SOLOSTAR 100 UNITS/ML 3 ML PEN SC SCH (21:00)
[2017-12-04 23:10] VITALS: BP 126/64; PULSE 65; TEMP 36.8; O2SAT 98
[2017-12-05] MEDS: ACETAMINOPHEN IV 650 MG in EMPTY BAG 0 ML IV PRN ×2 (01:05→15:59)
[2017-12-05] MEDS: TRAMADOL HCL 50 MG TAB PO PRN ×4 (03:40→18:47)
[2017-12-05] MEDS: SODIUM CHLOR 0.45% + 20MEQ KCL 1,000 ML IV SCH ×2 (05:59→15:59)
[2017-12-05 07:11] VITALS: BP 142/78; PULSE 65; TEMP 36.8; O2SAT 97
[2017-12-05 08:00] VITALS: O2SAT 97
[2017-12-05 08:05] LABS: BASO % 0.1 %; BASO ABS # 0.01 K/uL (0-0.2); EOS ABS # 0.15 K/uL (0-0.5); HEMATOCRIT 25.3 % (42-52); HEMOGLOBIN 8.7 g/dL (14.0-18.0); IG# 0.03 K/uL (0.00-0.02); LYMPH % 9.4 %; MEAN CELL VOLUME 88.8 fL (80-100); MEAN CORPUSCULAR HEMOGLOBIN 30.5 pg (25-34); MEAN CORPUSCULAR HGB CONC 34.4 g/dl (32-36); MEAN PLATELET VOLUME 8.5 fL (7.4-10.4); MONO % 8.4 %; MONO ABS # 0.63 K/uL (0.11-0.59); NEUT % 79.7 %; NEUT ABS # 5.96 K/uL (1.4-6.5); PLATELET COUNT 116 K/uL (130-400); RED CELL DISTRIBUTION WIDTH CV 15.4 % (11.5-14.5); RED CELL DISTRIBUTION WIDTH SD 50.3 fL (36.4-46.3); WHITE BLOOD COUNT 7.48 K/uL (4.8-10.8)
[2017-12-05] MEDS: CHECK FENTANYL PATCH PLACEMENT SCH ×4 (08:08→23:37)
[2017-12-05] MEDS: CITALOPRAM 20 MG TAB PO SCH (08:13)
[2017-12-05] MEDS: DOCUSATE SODIUM 100 MG CAP PO SCH (08:14)
[2017-12-05 08:31] LABS: CALCIUM 7.8 mg/dl (8.5-10.1); CREATININE 0.85 mg/dl (0.60-1.40); POTASSIUM 3.7 mmol/L (3.5-5.1)
[2017-12-05] MEDS ORDERED: LOVENOX TEACHING KIT ONE (09:00)
[2017-12-05] MEDS: ONDANSETRON INJ 2 MG/ML 2 ML VIAL IV PRN ×2 (09:12→15:43)
[2017-12-05] MEDS: HEPARIN SOD 5000 UNIT/0.5 ML CARP SQ SCH ×2 (09:20→21:12)
[2017-12-05] MEDS: INSULIN ASPART 100 UNITS/ML 3 ML PEN SC SCH ×4 (09:20→21:00)
[2017-12-05] MEDS: INSULIN GLARGINE SOLOSTAR 100 UNITS/ML 3 ML PEN SC SCH (09:22)
--- NOTE | 2017-12-05 11:25 | Progress Note ---
Subjective Date of Service: Dec 05, 2017. Subjective Pt evaluation today including: conversation w/ patient, chart review, lab review 62 yo male s/p cystectomy. Pt reports large BMs this morning. C/o some nausea, but denies vomiting. Tolerating small amount of mechanical soft diet. + slight incisional pain. Labs stable. I&Os acceptable. Ostomy nurse was in to see the pt this morning. Home health in the process of being arranged. Problem List Medical Problems: (1) Abdominal pain Status: Acute (2) Acute hyponatremia Status: Acute (3) Bladder neoplasm Status: Acute (4) Constipation Status: Acute (5) Fungal infection Status: Acute (6) Generalized weakness Status: Acute (7) Hematuria Status: Acute (8) Hypomagnesemia Status: Acute (9) Intractable abdominal pain Status: Acute (10) Suprapubic abdominal pain Status: Acute (11) Urinary tract infection associated with nephrostomy catheter Status: Acute (12) UTI (urinary tract infection) Status: Acute Review of Systems Constitutional: No fever, No chills Respiratory: No shortness of breath Cardiac: No chest pain Abdomen: + see HPI, + pain (incisional ), + nausea, No vomiting Male : No hematuria Heme: No abnormal bleeding/bruising Objective Vital Signs Date Time Temp Pulse Resp B/P (MAP) Pulse Ox O2 Delivery O2 Flow Rate FiO2 12/05/17 07:11 36.8 65 18 142/78 (99) 97 Room Air 12/05/17 00:40 Room Air 12/04/17 23:10 36.8 65 16 126/64 (84) 98 Room Air 12/04/17 15:35 Room Air 12/04/17 15:30 36.8 64 18 139/80 (99) 95 Room Air Physical Exam General Appearance: no apparent distress Eyes: normal inspection ENT: hearing grossly normal Neck: no JVD Respiratory/Chest: no respiratory distress, no accessory muscle use Cardiovascular: no JVD Abdomen: + pertinent finding (abdominal incisions c/d/i; ostomy beefy red, TRISH draining serosanguinous fluid) Extremities: normal inspection Neurologic/Psychiatric: alert, normal mood/affect, oriented x 3 Skin: normal color Laboratory Results Last 24 Hours Test 12/04/17 12:01 12/04/17 16:56 12/04/17 20:33 12/05/17 07:53 Bedside Glucose 129 mg/dl 102 mg/dl 107 mg/dl White Blood Count 7.48 K/uL Red Blood Count 2.85 M/uL Hemoglobin 8.7 g/dL Hematocrit 25.3 % Mean Corpuscular Volume 88.8 fL Mean Corpuscular Hemoglobin 30.5 pg Mean Corpuscular Hemoglobin Concent 34.4 g/dl Platelet Count 116 K/uL Mean Platelet Volume 8.5 fL Neutrophils (%) (Auto) 79.7 % Lymphocytes (%) (Auto) 9.4 % Monocytes (%) (Auto) 8.4 % Eosinophils (%) (Auto) 2.0 % Basophils (%) (Auto) 0.1 % Neutrophils # (Auto) 5.96 K/uL Lymphocytes # (Auto) 0.70 K/uL Monocytes # (Auto) 0.63 K/uL Eosinophils # (Auto) 0.15 K/uL Basophils # (Auto) 0.01 K/uL RDW Standard Deviation 50.3 fL RDW Coefficient of Variation 15.4 % Immature Granulocyte % (Auto) 0.4 % Immature Granulocyte # (Auto) 0.03 K/uL Red Blood Cell Morphology Unremarkable Sodium Level 134 mmol/L Potassium Level 3.7 mmol/L Chloride Level 102 mmol/L Carbon Dioxide Level 23 mmol/L Anion Gap 9.0 mmol/L Blood Urea Nitrogen 12 mg/dl Creatinine 0.85 mg/dl Est Creatinine Clear Calc Drug Dose 97.7 ml/min Estimated GFR () 107.5 Estimated GFR (Non- 92.7 BUN/Creatinine Ratio 14.4 Random Glucose 98 mg/dl Calcium Level 7.8 mg/dl Test 12/05/17 08:14 Bedside Glucose 106 mg/dl Assessment and Plan POD #5 s/p cystectomy AFVSS. Pt doing well post-op. Continue mechanical soft diet today. Continue SCDs/TEDs/Hep subq for DVT prophylaxis. Continue PT/OT and ambulation to hallway TID. Encourage IS. Pain management with Ofirmev PRN (will change from scheduled dosing), Toradol PRN, and Ultram PRN. Plan for home health upon discharge. Possible d/c home tomorrow. Will continue to observe today d/t nausea. Continued [facility] stay due to: inadequate po fluid intake, multiple IV medications needed Discharge planning: home with home health
--- NOTE | 2017-12-05 11:47 | Medical Student: [facility] ---
Med Student Progress Note Date of Service Dec 05, 2017. Subjective Pt evaluation today including: conversation w/ patient, conversation w/ family , physical exam, chart review, lab review, review of studies, review of inpatient medication list Pain: well controlled PO Intake: tolerating small amounts of mechanical soft, some nausea Voiding: no voiding problems (urostomy in place ) Mr. Anna is POD #5 cystoprostatectomy, bilateral pelvic region lymph node resection with bilateral stent and ileal conduit placement. Review of Systems Constitutional: No fever, No chills Respiratory: No cough, No shortness of breath Abdomen: + nausea (some nausea after small amount of soft, no vomitting), No pain, No constipation Musculoskeletal: No joint pain Male : + see HPI Skin: No rash, No new/changing skin lesions, No bleeding Objective Vital Signs Date Time Temp Pulse Resp B/P (MAP) Pulse Ox O2 Delivery O2 Flow Rate FiO2 12/05/17 07:11 36.8 65 18 142/78 (99) 97 Room Air 12/05/17 00:40 Room Air 12/04/17 23:10 36.8 65 16 126/64 (84) 98 Room Air 12/04/17 15:35 Room Air 12/04/17 15:30 36.8 64 18 139/80 (99) 95 Room Air Physical Exam General Appearance: WD/WN, no apparent distress ENT: hearing grossly normal Neck: no JVD Respiratory/Chest: no respiratory distress, no accessory muscle use Cardiovascular: no JVD Abdomen: non tender, soft, + pertinent finding (Abdominal incision sites C/D/I - no erythema, drainage or warmth; TRISH intact - draining ~220 serosanginous. ) Extremities: normal inspection Neurologic/Psychiatric: no motor/sensory deficits, alert, normal mood/affect, oriented x 3 Skin: warm/dry, no rash Lymphatic: no adenopathy Comments: : urostomy stoma is beefy red, draining adequate amount of pain yellow urine. Device is intact and well sealed. Laboratory Results Last 24 Hours Test 12/04/17 12:01 12/04/17 16:56 12/04/17 20:33 12/05/17 07:53 Bedside Glucose 129 mg/dl 102 mg/dl 107 mg/dl White Blood Count 7.48 K/uL Red Blood Count 2.85 M/uL Hemoglobin 8.7 g/dL Hematocrit 25.3 % Mean Corpuscular Volume 88.8 fL Mean Corpuscular Hemoglobin 30.5 pg Mean Corpuscular Hemoglobin Concent 34.4 g/dl Platelet Count 116 K/uL Mean Platelet Volume 8.5 fL Neutrophils (%) (Auto) 79.7 % Lymphocytes (%) (Auto) 9.4 % Monocytes (%) (Auto) 8.4 % Eosinophils (%) (Auto) 2.0 % Basophils (%) (Auto) 0.1 % Neutrophils # (Auto) 5.96 K/uL Lymphocytes # (Auto) 0.70 K/uL Monocytes # (Auto) 0.63 K/uL Eosinophils # (Auto) 0.15 K/uL Basophils # (Auto) 0.01 K/uL RDW Standard Deviation 50.3 fL RDW Coefficient of Variation 15.4 % Immature Granulocyte % (Auto) 0.4 % Immature Granulocyte # (Auto) 0.03 K/uL Red Blood Cell Morphology Unremarkable Sodium Level 134 mmol/L Potassium Level 3.7 mmol/L Chloride Level 102 mmol/L Carbon Dioxide Level 23 mmol/L Anion Gap 9.0 mmol/L Blood Urea Nitrogen 12 mg/dl Creatinine 0.85 mg/dl Est Creatinine Clear Calc Drug Dose 97.7 ml/min Estimated GFR () 107.5 Estimated GFR (Non- 92.7 BUN/Creatinine Ratio 14.4 Random Glucose 98 mg/dl Calcium Level 7.8 mg/dl Test 12/05/17 08:14 Bedside Glucose 106 mg/dl Assessment and Plan Assessment and Plan: Mr. Anna is POD #5 cystoprostatectomy, bilateral pelvic region lymph node resection with bilateral stent and ileal conduit placement. APVSS: He is doing very well, in good spirits with his at bedside. States the pan shover Adriana has been very helpful in teaching. Working with PT and ambulating daily. Pain is well controlled. He is having some nausea with eating, after a few bites. No vomiting. He had 2 large, "good" bowel movements this AM, and is passing flatus. Labwork reviewed -stable. Good UO, -400ml balance today. TRISH draining ~220 of serous today. Nephrostomy tube capped. Continue soft diet as tolerated- monitor for worsening nausea or vomiting. Continue VTE prophylactic therapies. Continue PT and ambulating in halls. Will discuss with Dr. Vaca the plan for nephrostomy tube. Continue to monitor with primary service, okay to discharge home with home health services tomorrow if nausea improves. Continued [facility] stay due to: inadequate po fluid intake, multiple IV medications needed Discharge planning: home with home health
--- NOTE | 2017-12-05 12:02 | Pharmacy Progress Note ---
Glycemic: Assessment & Plan Date of Service Dec 05, 2017. Assessment & Plan The patient is currently receiving 17 units of insulin per day. BSGs ranging 102 - 107 mg/dl over the past 24hrs. * Basal insulin: Lantus 10 units every 24 hours * Correctional Insulin: Novolog Correction per scale ACHS Goal Range: Low 110 mg/dL - High 150 mg/dL Correction Factor: 20 mg/dL/unit * Prandial insulin: Per carb ratio of 1 unit per 7 grams CHO consumed Mr. Anna' AM fasting BSGs have trended down over the past few days, ergo will decrease lantus dose from 10units---> 8units QAM. Will d/c PM lantus scale as he has not utilized it in 4 days. Continue ordered CF:CR. * Please note that the plan above was derived based on current level of insulin resistance and hospital stress. These recommendations are appropriate for inpatient admission only. Plan of care upon discharge will need to be reassessed to avoid potential outpatient hypo/hyperglycemia.
[2017-12-05 15:08] VITALS: BP 130/75; PULSE 62; TEMP 36.9; O2SAT 100
[2017-12-05] MEDS: KETOROLAC TROMETHAMINE 15 MG/ML VIAL IV PRN (21:13)
[2017-12-05 22:51] VITALS: BP 130/78; PULSE 65; TEMP 36.7; O2SAT 98
[2017-12-06] MEDS: SODIUM CHLOR 0.45% + 20MEQ KCL 1,000 ML IV SCH ×2 (01:56→11:44)
[2017-12-06] MEDS: TRAMADOL HCL 50 MG TAB PO PRN (06:07)
[2017-12-06 06:11] LABS: BASO % 0.1 %; BASO ABS # 0.01 K/uL (0-0.2); EOS % 3.7 %; EOS ABS # 0.39 K/uL (0-0.5); HEMATOCRIT 27.4 % (42-52); HEMOGLOBIN 9.6 g/dL (14.0-18.0); IG# 0.05 K/uL (0.00-0.02); LYMPH % 9.9 %; LYMPH ABS # 1.05 K/uL (1.2-3.4); MEAN CORPUSCULAR HEMOGLOBIN 31.2 pg (25-34); MONO ABS # 0.96 K/uL (0.11-0.59); NEUT % 76.8 %; NEUT ABS # 8.18 K/uL (1.4-6.5); PLATELET COUNT 167 K/uL (130-400); RED CELL DISTRIBUTION WIDTH CV 15.5 % (11.5-14.5); RED CELL DISTRIBUTION WIDTH SD 50.1 fL (36.4-46.3); WHITE BLOOD COUNT 10.64 K/uL (4.8-10.8)
[2017-12-06 06:45] LABS: CREATININE 0.9 mg/dl (0.60-1.40); POTASSIUM 3.8 mmol/L (3.5-5.1)
[2017-12-06 07:30] VITALS: O2SAT 97
[2017-12-06] MEDS: KETOROLAC TROMETHAMINE 15 MG/ML VIAL IV PRN (07:48)
[2017-12-06] MEDS: CHECK FENTANYL PATCH PLACEMENT SCH (07:48)
[2017-12-06 07:51] VITALS: BP 128/76; PULSE 63; TEMP 36.7; O2SAT 97
[2017-12-06] MEDS ORDERED: ENOXAPARIN 30 MG/0.3 ML SYR SQ SCH (09:00)
[2017-12-06] MEDS: INSULIN GLARGINE SOLOSTAR 100 UNITS/ML 3 ML PEN SC SCH (09:32)
[2017-12-06] MEDS: INSULIN ASPART 100 UNITS/ML 3 ML PEN SC SCH ×2 (09:33→12:00)
[2017-12-06] MEDS: FENTANYL PATCH REMOVE & WASTE SCH (09:34)
[2017-12-06] MEDS: FENTANYL 75 MCG/HR TDSY TD SCH (09:35)
[2017-12-06] MEDS: CITALOPRAM 20 MG TAB PO SCH (09:36)
[2017-12-06] MEDS: DOCUSATE SODIUM 100 MG CAP PO SCH (09:36)
--- NOTE | 2017-12-06 10:40 | Progress Note ---
Subjective Date of Service: Dec 06, 2017. Subjective Pt evaluation today including: conversation w/ patient, chart review, lab review 62 yo male s/p cystectomy. Pt doing well this morning. Nausea has improved. Pain tolerable with Ultram. assistant pastry chef to come in and change device again as he has been having leakage onto the appliance from his TRISH drain. Labs stable. I&Os acceptable, although the pt continues to have a large TRISH output daily. Problem List Medical Problems: (1) Abdominal pain Status: Acute (2) Acute hyponatremia Status: Acute (3) Bladder neoplasm Status: Acute (4) Constipation Status: Acute (5) Fungal infection Status: Acute (6) Generalized weakness Status: Acute (7) Hematuria Status: Acute (8) Hypomagnesemia Status: Acute (9) Intractable abdominal pain Status: Acute (10) Suprapubic abdominal pain Status: Acute (11) Urinary tract infection associated with nephrostomy catheter Status: Acute (12) UTI (urinary tract infection) Status: Acute Review of Systems Constitutional: No fever, No chills Respiratory: No shortness of breath Cardiac: No chest pain Abdomen: No pain, No nausea, No vomiting, No constipation Male : No hematuria Heme: No abnormal bleeding/bruising Objective Vital Signs Date Time Temp Pulse Resp B/P (MAP) Pulse Ox O2 Delivery O2 Flow Rate FiO2 12/06/17 07:51 36.7 63 18 128/76 (93) 97 Room Air 12/05/17 23:50 Room Air 12/05/17 22:51 36.7 65 16 130/78 (95) 98 Room Air 12/05/17 15:45 Room Air 12/05/17 15:08 36.9 62 18 130/75 (93) 100 Room Air Physical Exam General Appearance: no apparent distress Eyes: normal inspection ENT: hearing grossly normal Neck: no JVD Respiratory/Chest: no respiratory distress, no accessory muscle use Cardiovascular: no JVD Abdomen: + pertinent finding (abdominal incisions c/d/i; ostomy beefy red with stents in place; TRISH draining serosanguinous fluid ) Extremities: normal inspection Neurologic/Psychiatric: alert, normal mood/affect, oriented x 3 Skin: normal color Laboratory Results Last 24 Hours Test 12/05/17 11:56 12/05/17 16:59 12/05/17 17:06 12/05/17 20:38 Bedside Glucose 101 mg/dl 157 mg/dl 96 mg/dl 120 mg/dl Test 12/06/17 05:49 12/06/17 08:12 White Blood Count 10.64 K/uL Red Blood Count 3.08 M/uL Hemoglobin 9.6 g/dL Hematocrit 27.4 % Mean Corpuscular Volume 89.0 fL Mean Corpuscular Hemoglobin 31.2 pg Mean Corpuscular Hemoglobin Concent 35.0 g/dl Platelet Count 167 K/uL Mean Platelet Volume 9.0 fL Neutrophils (%) (Auto) 76.8 % Lymphocytes (%) (Auto) 9.9 % Monocytes (%) (Auto) 9.0 % Eosinophils (%) (Auto) 3.7 % Basophils (%) (Auto) 0.1 % Neutrophils # (Auto) 8.18 K/uL Lymphocytes # (Auto) 1.05 K/uL Monocytes # (Auto) 0.96 K/uL Eosinophils # (Auto) 0.39 K/uL Basophils # (Auto) 0.01 K/uL RDW Standard Deviation 50.1 fL RDW Coefficient of Variation 15.5 % Immature Granulocyte % (Auto) 0.5 % Immature Granulocyte # (Auto) 0.05 K/uL Sodium Level 132 mmol/L Potassium Level 3.8 mmol/L Chloride Level 103 mmol/L Carbon Dioxide Level 23 mmol/L Anion Gap 6.0 mmol/L Blood Urea Nitrogen 12 mg/dl Creatinine 0.90 mg/dl Est Creatinine Clear Calc Drug Dose 92.2 ml/min Estimated GFR () 105.0 Estimated GFR (Non- 90.6 BUN/Creatinine Ratio 13.8 Random Glucose 104 mg/dl Calcium Level 8.0 mg/dl Bedside Glucose 116 mg/dl Assessment and Plan POD #6 s/p cystectomy AFVSS. Pt doing well post-op. Plan to transition him to 30 days of Lovenox starting today. Plan for d/c home with home health after lunch. He will be discharged home with home health. Continued [facility] stay due to: inadequate po fluid intake, multiple IV medications needed Discharge planning: home with home health
[2017-12-06] MEDS ORDERED: ENOX30IN4 SQ (10:43)
--- NOTE | 2017-12-06 10:47 | Discharge Instructions ---
Discharge Instructions Date of Service Dec 06, 2017. Admission Reason for Admission: Malignant Tumor Of Urinary Bladder Discharge Discharge Diagnosis / Problem: Bladder Cancer Discharge Goals Goal(s): Decrease discomfort, Improve function, Increase independence, Improve disease control, Improve nutritional status, Learn about illness, Diagnostic testing, Therapeutic intervention Activity Recommendations Activity Limitations: per Instructions/Follow-up section 1. Do not lift >15lbs x 6 weeks. 2. No heavy exercise x 6 weeks. You may engage in light activity such as walking and stairs as tolerated. 3. Do not drive x [address] while taking narcotics. 4. Follow-up as scheduled. Please call our office at [phone] if you need to reschedule for any reason. . . Current Hospital Diet Patient's current hospital diet: Diabetes Type 2 Diet, Regular Diet Discharge Diet Recommended Diet: AHA Diet (Heart Healthy), Diabetes Type 2 Diet Procedures Procedures Performed: 1. Robot Assisted Radical Cystoprostatectomy 2. Bilateral Extended Pelvic Lymph Node Dissection 3. Ileal Conduit Urinary Diversion Pending Studies Studies pending at discharge: yes List of pending studies: Bladder, prostate, and lymph nodes Laboratory Results Hemoglobin A1c Test 11/13/17 05:25 Range/Units Estimated Average Glucose 131 mg/dl Hemoglobin A1c 6.2 H 4.5-5.6 % Medical Emergencies . Who to Call and When: Medical Emergencies: If at any time you feel your situation is an emergency, please call 911 immediately. . Non-Emergent Contact Non-Emergency issues call your: Urologist Call Non-Emergent contact if: temperature is above 101.5, your pain is not controlled, your pain is worsening, your pain is unusual for you, your pain is concerning you, wound has increased drainage, wound has increased redness, wound has increased pain, you have any medication questions . . "Provider Documentation" section prepared by Paula Scales. . [place] Drug Monitoring Program Drug Monitoring Findings: PDMP not able to be reviewed d/t system error. Pt known to have prescriptions for oxycodone and tramadol at home for pain control as needed. No further narcotics provided at this time.
[2017-12-06 11:19] VITALS: BP 128/76; PULSE 63; TEMP 36.7; O2SAT 97
[2017-12-06 12:08] VITALS: BP 132/90; PULSE 68; TEMP 36.8; O2SAT 97
--- NOTE | 2017-12-08 09:58 | Discharge Summary ---
Discharge Summary Date of Service Dec 08, 2017. Admission Date/Reason Nov 30, 2017 at 18:05 Malignant Tumor Of Urinary Bladder. Discharge Date/Disposition Dec 06, 2017 Home with services Diagnosis Principal Diagnosis: Malignant T2 Bladder Cancer. Secondary Diagnoses/Problems: 1, Chronic Diverticulitis 2. SANTHOSH on CKD secondary to Right Ureteral Obstruction 3. Former Smoker Procedure(s) Performed Radical Robot Asst Lap Cystoprostatectomy with extended PLND and ileal conduit diversion Consultations 1. Critical Care. 2. Ostomy Nursing 3. Physical therapy 4. Nutrition. Medication Reconciliation See Medication list. Admission Physical Exam As per Admitting History & Physical. Hospital Course Patient was admitted and underwent Radical Robotic procedure. Patient tolerated the procedure well but did develop some edema of the head and neck. It was decided to maintain intubation overnight and monitor in the critical care center. Patient was managed and required sedation. POD 1 patient was aroused from anesthesia and extubated. Post extubation patient did very well without issues. He was ambulating and had JUNIOR DATA ANALYST for pain control. Patient was maintained on antibiotics. The ostomy performed well. TRISH drainage was monitored. The Nephrostomy tube on the right was clamped. Patient was on the rapid cystectomy protocol with early ambulation and diet management. He was started on gum and hard candy. POD 2 and 3 the patient continued to improve. He was moved to telemetry and did well. POD 4 he started to pass gas and improved overall. Patient was followed on protocol with advancement of diet and tight control of issues. PT, Nutrition, and ostomy/wound care was on board to assist the patient. He had home health secured for ostomy assistance. Home lovenox was approved. The patient had the neph tube removed on POD 5. Improved overall. Had 2 large bowel movements but developed mild nausea. He was kept until POD 6. He improved overall. No major issues. Overall the patient was ambulating, tolerating a diet, and pain was well controlled with good function of ostomy and return of bowel function. With the patient improving clinical picture, plan for followup, instructions for discharge, and post operative management were confirmed and prepared. ON POD 6 patient was found to be stable for discharge to care of family. Discharge Instructions Please refer to the electronic Patient Visit Report (Discharge Instructions) for additional information.
== END 2017-12-06 12:58 | disposition home health service (06) | DRG 654 ==
LOC: C.ACU 06:29 → C.MSICU 18:05 → ENRESERV 12-02 08:51 → C.MSW 12-02 11:34
PROVIDERS: ADMIT Urology; ATTEND Urology
PROC: 0T184JC Bypass Bilateral Ureters to Ileocutaneous with Synthetic Substitute, Percutaneous Endoscopic Approach (ICD-10-PCS; principal; 2017-11-30 08:15)
PROC: 07BH4ZX Excision of Right Inguinal Lymphatic, Percutaneous Endoscopic Approach, Diagnostic (ICD-10-PCS; principal; 2017-11-30 08:15)
PROC: 0TB64ZX Excision of Right Ureter, Percutaneous Endoscopic Approach, Diagnostic (ICD-10-PCS; principal; 2017-11-30 08:15)
PROC: 0TB74ZX Excision of Left Ureter, Percutaneous Endoscopic Approach, Diagnostic (ICD-10-PCS; principal; 2017-11-30 08:15)
PROC: 0TTB4ZZ Resection of Bladder, Percutaneous Endoscopic Approach (ICD-10-PCS; principal; 2017-11-30 08:15)
PROC: 8E0W4CZ Robotic Assisted Procedure of Trunk Region, Percutaneous Endoscopic Approach (ICD-10-PCS; principal; 2017-11-30 08:15)
PROC: 07BJ4ZX Excision of Left Inguinal Lymphatic, Percutaneous Endoscopic Approach, Diagnostic (ICD-10-PCS; principal; 2017-11-30 08:15)
PROC: 0VT04ZZ Resection of Prostate, Percutaneous Endoscopic Approach (ICD-10-PCS; principal; 2017-11-30 08:15)
PROC: 0VT34ZZ Resection of Bilateral Seminal Vesicles, Percutaneous Endoscopic Approach (ICD-10-PCS; principal; 2017-11-30 08:15)
DX: C67.9 Malignant neoplasm of bladder, unspecified (principal); N13.30 Unspecified hydronephrosis; N13.8 Other obstructive and reflux uropathy; J38.4 Edema of larynx; N28.9 Disorder of kidney and ureter, unspecified; N40.1 Benign prostatic hyperplasia with lower urinary tract symptoms; E11.9 Type 2 diabetes mellitus without complications; E78.00 Pure hypercholesterolemia, unspecified; I13.10 Hypertensive heart and chronic kidney disease without heart failure, with stage 1 through stage 4 chronic kidney disease, or unspecified chronic kidney disease; N18.9 Chronic kidney disease, unspecified; F41.8 Other specified anxiety disorders; G47.33 Obstructive sleep apnea (adult) (pediatric); I25.2 Old myocardial infarction; I25.10 Atherosclerotic heart disease of native coronary artery without angina pectoris; Z79.899 Other long term (current) drug therapy; Z79.84 Long term (current) use of oral hypoglycemic drugs; Z79.891 Long term (current) use of opiate analgesic; Z87.891 Personal history of nicotine dependence; Z79.82 Long term (current) use of aspirin; Z92.21 Personal history of antineoplastic chemotherapy; Z95.5 Presence of coronary angioplasty implant and graft; Z82.49 Family history of ischemic heart disease and other diseases of the circulatory system; Z80.0 Family history of malignant neoplasm of digestive organs; Z83.3 Family history of diabetes mellitus; Z80.3 Family history of malignant neoplasm of breast

== ENCOUNTER → 2017-12-13 | Outpatient (CLI) | payer OTHER ==
[~2017-12-13] MED LIST changes: -ACETAMINOPHEN IV 1000MG/100ML IV SCH; -CEFAZOLIN SOD 1000MG/7.5 ML IV PUSH IV ONE; -CEFOXITIN IV 2,000 MG in DEXTROSE 5% 50ML 50 ML IV SCH; -CIPROFLOXACIN / D5W 400 MG IV SCH; -CIPROFLOXACIN 400MG / D5W IV SCH; -CPR500 PO; -DFL100 PO; -DTR/5 PO; +ENOX30IN4 SQ; -FENTANYL CITRATE INJ 50 MCG/1 ML 2 ML VIAL ONE; -HEPARIN SOD 5000 UNIT/0.5 ML CARP SQ SCH; -LACTATED RINGER'S 1000ML 1,000 ML IV SCH; -LIDOCAINE HCL 2% 2 ML VIAL (20MG/ML) ONE; -MIDAZOLAM HCL 1 MG/ML 2ML VIAL ONE; -PHEN-876 PO; -PROPOFOL IV EMULSION 10 MG/ML 20 ML VIAL IV ONE; -TAMS0.4C38 PO
--- NOTE | 2017-12-13 10:25 | DIAGNOSTIC IMAGING REPORT ---
(RENAL)RETROPERITON COMP HISTORY: Hydronephrosis N13.30 Hydronephrosis COMPARISON: CT 11/11/2017 FINDINGS: Right kidney: Maximum dimension 11.1 cm. Minimal/mild residual hydronephrosis improved from the patient's prior CT exam. Several small cortical cysts. Moderate cortical scarring of the outer margin of the kidney. Right-sided ureteral stent/catheter in good position. Left kidney: No evidence for hydronephrosis. Maximum dimension 12.3 cm. Several cysts measuring up to 1 cm. Normal corticomedullary differentiation and cortical thickness. Bladder: No bladder wall thickening. The bilateral ureteral jets were identified. IMPRESSION: 1. Moderate cortical scarring of the kidneys. 2. Mild right hydronephrosis improved from the prior study post stent placement. 3. Several small benign-appearing cysts. The above report was generated using voice recognition software. It may contain grammatical, syntax or spelling errors. Electronically signed by: Wil Waldrop M.D. 12/13/2017 10:24 AM Dictated Date/Time: 12/13/2017 9:56 AM
[2017-12-13 12:10] LABS: HEMATOCRIT 29.3 % (42-52); HEMOGLOBIN 9.6 g/dL (14.0-18.0); MEAN CELL VOLUME 92.7 fL (80-100); MEAN CORPUSCULAR HEMOGLOBIN 30.4 pg (25-34); MEAN CORPUSCULAR HGB CONC 32.8 g/dl (32-36); MEAN PLATELET VOLUME 9.3 fL (7.4-10.4); PLATELET COUNT 186 K/uL (130-400); RED CELL DISTRIBUTION WIDTH CV 15.4 % (11.5-14.5); WHITE BLOOD COUNT 9.37 K/uL (4.8-10.8)
[2017-12-13 12:23] LABS: INR 0.9 (0.9-1.1); PTT PATIENT 26.6 SECONDS (21.0-31.0)
[2017-12-13 12:24] LABS: ALBUMIN 2.9 gm/dl (3.4-5.0); ALT/SGPT 34 U/L (12-78); AST/SGOT 21 U/L (15-37); BLOOD UREA NITROGEN 20 mg/dl (7-18); CALCIUM 8.2 mg/dl (8.5-10.1); CARBON DIOXIDE 28 mmol/L (21-32); CREATININE 1.12 mg/dl (0.60-1.40); GLUCOSE 137 mg/dl (70-99); SODIUM 135 mmol/L (136-145)
[2017-12-13 12:27] LABS: ALKALINE PHOSPHATASE 74 U/L (45-117); TOTAL PROTEIN 5.9 gm/dl (6.4-8.2)
== END | disposition home or self-care (01) ==
LOC: C.ULTR 09:08
PROVIDERS: ATTEND Urology
DX: N28.89 Other specified disorders of kidney and ureter (principal); N13.30 Unspecified hydronephrosis; C67.9 Malignant neoplasm of bladder, unspecified

== ENCOUNTER 2020-01-11 08:57 | Inpatient (IN) ==
[2020-01-11] MEDS ORDERED: ONDANSETRON INJ 2 MG/ML 2 ML VIAL IV STA (09:29)
[2020-01-11] MEDS ORDERED: SODIUM CHLORIDE 0.9% 1000ML 1,000 ML IV SCH (09:30)
[2020-01-11] MEDS ORDERED: IOVERSOL 100ml IV PRN (09:33)
[2020-01-11 09:36] LABS: Basophils # (auto) 0.02 K/uL (0-0.2); Basophils % (auto) 0.2 %; Eosinophils # (auto) 0.03 K/uL (0-0.5); Eosinophils % (auto) 0.3 %; Hematocrit (blood only) 41.4 % (42-52); Hemoglobin 14.3 g/dL (14.0-18.0); Immature Granulocytes # (auto) 0.12 K/uL (0.00-0.02); Immature Granulocytes % (auto) 1.2 %; Lymphocytes # (auto) 0.89 K/uL (1.2-3.4); Lymphocytes % (auto) 8.6 %; Mean Corpuscular Hgb Conc 34.5 g/dL (32-36); Mean Corpuscular Volume 89.6 fL (80-100); Mean Platelet Volume 11.1 fL (7.4-10.4); Monocytes # (auto) 0.33 K/uL (0.11-0.59); Monocytes % (auto) 3.2 %; Neutrophils % (auto) 86.5 %; Platelet Count 115 K/uL (130-400); RDW Standard Deviation 42.5 fL (36.4-46.3); Red Blood Count 4.62 M/uL (4.7-6.1); White Blood Count 10.39 K/uL (4.8-10.8)
[2020-01-11] MEDS: MoRPHine SULFATE 4 MG/ML 1 ML CARP\\VIAL IV PRN ×5 (09:39→22:51)
[2020-01-11 09:45] LABS: iSTAT Creatinine 1.2 mg/dl (0.6-1.3); iSTAT Hemoglobin 14.6 g/dl (14.0-18.0); iSTAT Ionized Calcium 1.11 mmol/l (1.12-1.32)
--- NOTE | 2020-01-11 09:46 | Emergency Department Note ---
Impression & Plan Hyperglycemia, Abdominal pain, Acute UTI (urinary tract infection) ED Provider Note NAME: LIZET JONES AGE: 64 SEX: M : 1955 ARRIVES VIA: Walk-In INFORMANT: Patient, ED PROVIDER(S): Edilson Finch MD Chief Complaint: Abdominal pain HPI: Patient presents with abdominal pain. He states this began yesterday around lunchtime. He describes it is intermittent and achy. He did take some Aleve and ate at that time which seemed to improve his symptoms. He had return of his symptoms later that evening and did not sleep well overnight. He localizes it to the mid abdomen. The patient does not have any current nausea. No vomiting. States he may have had some chills and some associated right-sided lower back pain. Back pain does not radiate. Patient does not present with cough, fevers, coronavirus contacts, coronavirus testing, or recent travel. Patient does have a prior history of bladder cancer and currently has a urostomy. No history of nephrectomy. The patient has been cancer free for 2 years. Patient's last chemo was in 2017 per the patient. Currently has not noticed any blood in the urine. Patient does have a prior history of kidney stones and states that at that time he noticed gross blood and clots in his urostomy. ROS: See HPI for pertinent positives and negatives. A total of 10 systems were reviewed and otherwise negative. Past medical history: See below Surgical history: See below Social history: See below Physical Exam: GENERAL: Mildly uncomfortable in appearance. Wearing a mask. EYE EXAM: Normal conjunctiva. PERRL, no anisocoria and EOM's grossly intact w/o pain. NECK: Supple, no nuchal rigidity, no adenopathy, non-tender. No signs of meningismus. LUNGS: Clear to auscultation. Normal chest wall mechanics. HEART: NSR, no MRG. ABDOMEN: Abdomen soft, mild pain to the mid abdomen without peritonitis, urostomy in place draining straw-colored fluid, normo-active bowel sounds, no masses, no rebound or guarding. BACK: Mild pain to the right lower back without any overlying skin change, negative straight leg raise. SKIN: No rashes and no bruising. UPPER EXTREMITIES: Upper extremities are grossly normal. LOWER EXTREMITIES: Grossly normal, no edema. NEURO EXAM: A&O x3, cranial nerves II-XII grossly intact, normal speech, moves all 4 extremities on command w/o issue. Differential diagnoses: Appendicitis, testicular torsion, infections, diverticulitis, UTI, obstruction, mesenteric ischemia, aortic pathology, inflammatory bowel disease, renal colic, PUD, pancreatitis, biliary pathology, hernia, volvulus, constipation, as well as other pathologies. Course: Patient was seen and evaluated the bedside. Full history physical exam was performed. EKG: Indication: Abdominal pain Imaging Studies: Radiology results as stated below per my review in the radiologist's interpretation: CT abd pelvis IV con only CLINICAL HISTORY: 64 years-old Male presenting with mid abdominal pain; h/o urostomy and kidney stones. TECHNIQUE: Multidetector CT of the abdomen and pelvis was performed after the administration of intravenous contrast. IV contrast: 93 mL of Optiray 320. One or more dose lowering techniques were used consistent with the principles of ALARA (as low as reasonably achievable), including automatic exposure control, mA or kV adjustment to individual patient size, and/or use of iterative reconstruction. COMPARISON: 11/01/2019. CT DOSE (mGy.cm): The estimated cumulative dose is 1172.24 mGy.cm. 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 Lung bases: Normal heart size. Coronary artery calcification. No pericardial or pleural effusion. No focal infiltrate or nodule at the lung bases. Liver: Normal morphology. No liver lesion. Patent hepatic vasculature. Biliary: No intrahepatic or extrahepatic biliary ductal dilatation. Normal g allbladder. Pancreas: Normal. Spleen: Normal. Adrenal glands: Normal. Kidneys and ureters: Multiple renal cysts the largest in the left kidney and interpolar region to the lower pole. This is altered in configuration from prior exam and now measures 21 mm in diameter, previously 11 mm this is also slightly elevated in density. Overlying thickening of the renal capsule. No nephrolithiasis. Parenchymal calcification noted at the lower pole of the right kidney. Mild bilateral pelvocaliectasis and distention of the ureters. No evidence of obstruction of the ureters. These insert onto a right lower quadrant ileal conduit. Bladder: Status post cystectomy. Pelvic organs: Status post prostatectomy. Bowel: Diverticulosis of the sigmoid and distal descending colon. Mild wall thickening of the distal sigmoid colon without pericolonic inflammatory change, likely chronic diverticular disease/circular muscle hyperplasia. Mild stool burden in the right colon. The appendix is normal. Postsurgical changes in the right lower quadrant from ileal conduit creation. The distal small bowel anastomosis is patent. No bowel obstruction. Peritoneal cavity: No free fluid or intraperitoneal gas. Lymph nodes: No enlarged lymph nodes in the abdomen or pelvis. Vasculature: Atherosclerosis of the normal caliber abdominal aorta. IVC patent. Abdominal wall: Right mid abdominal ileal conduit. No significant peristomal hernia. Musculoskeletal: Degenerative changes of the spine. No destructive osseous lesion. Epidural gas in the lumbar spine is evident both ventrally and dorsally. This may represent spread of degenerative related vacuum disc phenomenon. IMPRESSION: 1. Interval increase in size of the left renal lesion at the interpolar to lower pole region. This was previously 11 mm and consistent with a simple cyst. This now measures 21 mm with slightly elevated density. The presence of ove rlying capsular thickening and/or perinephric stranding suggest either interval hemorrhage into a cyst or superinfection. No urothelial thickening to further suggest infection. Correlate with urinalysis. 2. Distention of the urinary collecting systems likely due to reflux uropathy. Hydronephrosis is not favored. 3. Status post cystoprostatectomy with ileal conduit creation in the right mid abdomen. 4. Diverticulosis coli with chronic diverticular disease of the distal sigmoid colon. 5. Epidural gas in the lumbar spine evident both ventrally and dorsally. It is somewhat atypical to see gas dorsally though this may still be related to degenerative vacuum disc phenomenon with spread of gas. Correlate if there has been recent instrumentation or injection. ACT 112: Negative or not required by law. Electronically signed by: Benton Recio M.D. 01/11/2020 10:42 AM Dictated: 01/11/20 1033 Transcribed: 01/11/20 1034 Cardiac monitoring: An order was placed for continuous cardiac monitoring. The monitor shows a rate of 53 with sinus bradycardia rhythm. MDM: Patient does present with abdominal pain. Blood work was obtained along with a [id number] BMP. Initial [id number] BMP showed normal kidney function electrolytes but did have an elevated blood glucose greater than 500. Patient was ordered IV fluids morphine and Zofran along with additional blood work and CT of the abdomen pelvis. Urinalysis was also obtained from his urostomy bag. Patient states that he only takes metformin for his diabetes. Patient was ordered IV fluids. Patient's blood gas does not show acidosis but insulin drip was ordered due to concern for very high sugar with borderline anion gap and borderline low bicarb. Potassium is normal at this time. Urinalysis does show the possibility of infection given the nitrites WBCs and bacteria even with epithelial cells. I did review prior sensitivities which should the patient has had virtually pansensitive Klebsiella and E. coli. Rocephin was ordered. Review of the patient's n CT does show an increase in a renal lesion on his left side with perinephric stranding versus hemorrhage versus infection. No recent trauma with a normal hemoglobin. No signs of any bruising I do not believe the patient has acute hemorrhage. Patient's urinalysis appears to be more consistent with a UTI. Patient had complained more right-sided flank pain and then really having any left-sided pain. Patient does have diverticulosis. There is comment of epidural gas and lumbar spine could be related to degenerative disc disease. Does not have any midline. I conveyed these findings to the hospitalist service. Patient was to be admitted by Dr. Darden, [facility] [place] Hospitalist. Past Med/Surg History Medical History (Updated 01/11/20 @ 13:34 by Edilson Finch MD) CAD (coronary artery disease) Diabetes mellitus (Chronic) High cholesterol (Inactive) Hypertension (Inactive) Malignant tumor of urinary bladder (Inactive) Surgical History History of ankle surgery History of coronary angioplasty S/P colonoscopy S/P tooth extraction S/P ureteral stent placement Family History Mother Colorectal cancer Heart disease Diabetes Cardiac disorder Father Hypertension Sister Breast cancer Denies family history of Ovarian cancer Prostate cancer Myocardial infarction Social History marital status: Current Living Situation: Spouse current occupational status: retired Feels Safe at Home: Yes Smoking Status: Never smoker Hx Alcohol Use: No Hx Substance Use: No Allergies Allergies Allergy/AdvReac Type Severity Reaction Status Date / Time No Known Allergies Allergy Unverified 01/11/20 10:04 Home Meds Home Medications Medication Instructions Recorded Confirmed Lactobacillus 1 cap PO DAILY 12/18/19 01/11/20 acidophilus-Bifidobac.animalis 31 billion cell capsule albuterol sulfate 90 mcg/actuation 2 puff INH Q4H PRN 12/18/19 01/11/20 aerosol inhaler aspirin 81 mg tablet,delayed 81 mg PO DAILY 12/18/19 01/11/20 release Previous Rx's Medication Instructions Recorded atorvastatin 80 mg tablet 80 mg PO DAILY #90 tab 06/07/19 gabapentin 600 mg tablet 600 mg PO TID #270 tab 10/23/19 metformin 750 mg tablet,extended 750 mg PO BID #60 tab 12/25/19 release 24 hr Results & Data (ED) Vital Signs Vital Signs - 24 hr 01/11/20 09:04 01/11/20 09:32 01/11/20 10:27 Temperature 36.6 C Temperature Source Oral Pulse Rate 53 L 72 Respiratory Rate 20 20 Respiratory Effort / Characteristics Non-Labored Spontaneous Respiratory Depth Normal Blood Pressure 150/77 H 144/89 H Blood Pressure Mean 101 92 Pulse Oximetry 96 Oxygen Delivery Method Room Air Room Air Sepsis Recent Fever Within 48 Hours No Sepsis New/Unexplained Change in Mental Status No Sepsis Action Taken by Nursing No Action Required 01/11/20 10:30 01/11/20 11:00 01/11/20 11:30 Temperature Temperature Source Pulse Rate 69 76 78 Respiratory Rate 20 20 19 Respiratory Effort / Characteristics Respiratory Depth Blood Pressure 142/71 H 115/62 124/62 Blood Pressure Mean 86 70 76 Pulse Oximetry Oxygen Delivery Method Sepsis Recent Fever Within 48 Hours Sepsis New/Unexplained Change in Mental Status Sepsis Action Taken by Nursing 01/11/20 12:00 01/11/20 12:06 01/11/20 12:31 Temperature Temperature Source Pulse Rate 72 76 79 Respiratory Rate 19 24 17 Respiratory Effort / Characteristics Respiratory Depth Blood Pressure 114/67 151/81 H Blood Pressure Mean 86 101 Pulse Oximetry 99 95 94 Oxygen Delivery Method Sepsis Recent Fever Within 48 Hours Sepsis New/Unexplained Change in Mental Status Sepsis Action Taken by Nursing 01/11/20 13:00 01/11/20 13:30 Temperature Temperature Source Pulse Rate 78 72 Respiratory Rate 13 13 Respiratory Effort / Characteristics Respiratory Depth Blood Pressure 133/87 114/67 Blood Pressure Mean 103 83 Pulse Oximetry 95 95 Oxygen Delivery Method Sepsis Recent Fever Within 48 Hours Sepsis New/Unexplained Change in Mental Status Sepsis Action Taken by Shelter Medications Current Medication List: was personally reviewed by me Laboratory Data Attestation: I reviewed the patient's lab results. Result diagrams: 01/11/20 09:26 01/11/20 11:40 Lab Results 01/11/20 01/11/20 01/11/20 Range/Units 09:26 09:26 09:32 WBC 10.39 (4.8-10.8) K/uL RBC 4.62 L (4.7-6.1) M/uL Hgb 14.3 (14.0-18.0) g/dL POC Hgb 14.6 (14.0-18.0) g/dl Hct 41.4 L (42-52) % POC Hct 43 (42-52) % MCV 89.6 (80-100) fL MCH 31.0 (25-34) pg MCHC 34.5 (32-36) g/dL RDW Std Deviation 42.5 (36.4-46.3) fL RDW Coeff of [place] 13.0 (11.5-14.5) % Plt Count 115 L (130-400) K/uL MPV 11.1 H (7.4-10.4) fL Immature Gran % (Auto) 1.2 % Neut % (Auto) 86.5 % Lymph % (Auto) 8.6 % [place] % (Auto) 3.2 % Eos % (Auto) 0.3 % Baso % (Auto) 0.2 % Immature Gran # (Auto) 0.12 H (0.00-0.02) K/uL Neut # (Auto) 9.00 H (1.4-6.5) K/uL Lymph # (Auto) 0.89 L (1.2-3.4) K/uL [place] # (Auto) 0.33 (0.11-0.59) K/uL Eos # (Auto) 0.03 (0-0.5) K/uL Baso # (Auto) 0.02 (0-0.2) K/uL VBG pH (7.36-7.41) POC Sodium 131 L (135-144) mmol/L Sodium 130 L (136-145) mmol/L POC Potassium 4.0 (3.3-5.0) mmol/L Potassium 3.8 (3.5-5.1) mmol/L POC Chloride 98 L (101-112) mmol/L Chloride 95 L (98-107) mmol/L Carbon Dioxide 22 (21-32) mmol/L POC Total CO2 22 L (24-31) mmol/L Anion Gap 13.0 H (3-11) POC Anion Gap 17.0 (16-25) mmol/L POC BUN 26 H (7-18) mg/dl BUN 28 H (7-18) mg/dl Creatinine 1.51 H (0.6-1.4) mg/dl POC Creatinine 1.2 (0.6-1.3) mg/dl Est Cr Clr Drug Dosing 58.4 ml/min Est GFR ( Amer) 55.4 Est GFR (Non-Af Amer) 47.8 BUN/Creatinine Ratio 18.5 (10-20) Glucose 559 H* (70-99) mg/dl POC Glucose (70-99) mg/dl POC Glucose (other) 540 H* (70-99) mg/dl Calcium 9.1 (8.5-10.1) mg/dl POC Ioniz Calcium Vishnu 1.11 L (1.12-1.32) mmol/l Phosphorus (2.5-4.9) mg/dl Magnesium (1.8-2.4) mg/dl Total Bilirubin 0.6 (0.2-1) mg/dl AST 18 (15-37) U/L ALT 38 (12-78) U/L Alkaline Phosphatase 156 H (45-117) U/L Troponin I < 0.015 (0-0.045) ng/ml Total Protein 7.7 (6.4-8.2) gm/dl Albumin 3.3 L (3.4-5.0) gm/dl Globulin 4.4 H (2.5-4.0) gm/dl Albumin/Globulin Ratio 0.7 L (0.9-2) Lipase 276 (73-393) U/L Beta-Hydroxybutyric Acd 16.06 H (0.2-2.81) mg/dl Urine Color Urine Appearance (Clear) Urine pH (4.5-7.5) Ur Specific [place] (1.000-1.030) Urine Protein (Negative) Urine Glucose (UA) (Negative) Urine Ketones (Negative) Urine Blood (Negative) Urine Nitrite (Negative) Urine Bilirubin (Negative) Urine Urobilinogen (Negative) Ur Leukocyte Esterase (Negative) Urine WBC (Auto) (0-5) /hpf Urine RBC (Auto) (0-4) /hpf U Hyaline Cast (Auto) (0-5) /lpf U Epithel Cells (Auto) (0-5) /lpf Urine Bacteria (Auto) (Negative) Ur Renal Epithelial Cell 01/11/20 01/11/20 01/11/20 Range/Units 09:33 11:25 11:40 WBC (4.8-10.8) K/uL RBC (4.7-6.1) M/uL Hgb (14.0-18.0) g/dL POC Hgb (14.0-18.0) g/dl Hct (42-52) % POC Hct (42-52) % MCV (80-100) fL MCH (25-34) pg MCHC (32-36) g/dL RDW Std Deviation (36.4-46.3) fL RDW Coeff of [place] (11.5-14.5) % Plt Count (130-400) K/uL MPV (7.4-10.4) fL Immature Gran % (Auto) % Neut % (Auto) % Lymph % (Auto) % [place] % (Auto) % Eos % (Auto) % Baso % (Auto) % Immature Gran # (Auto) (0.00-0.02) K/uL Neut # (Auto) (1.4-6.5) K/uL Lymph # (Auto) (1.2-3.4) K/uL [place] # (Auto) (0.11-0.59) K/uL Eos # (Auto) (0-0.5) K/uL Baso # (Auto) (0-0.2) K/uL VBG pH (7.36-7.41) POC Sodium (135-144) mmol/L Sodium 133 L (136-145) mmol/L POC Potassium (3.3-5.0) mmol/L Potassium 4.1 (3.5-5.1) mmol/L POC Chloride (101-112) mmol/L Chloride 101 (98-107) mmol/L Carbon Dioxide 21 (21-32) mmol/L POC Total CO2 (24-31) mmol/L Anion Gap 11.0 (3-11) POC Anion Gap (16-25) mmol/L POC BUN (7-18) mg/dl BUN 25 H (7-18) mg/dl Creatinine 1.28 (0.6-1.4) mg/dl POC Creatinine (0.6-1.3) mg/dl Est Cr Clr Drug Dosing 68.9 ml/min Est GFR ( Amer) 67.6 Est GFR (Non-Af Amer) 58.3 BUN/Creatinine Ratio 19.3 (10-20) Glucose 465 H* (70-99) mg/dl POC Glucose 446 H* (70-99) mg/dl POC Glucose (other) (70-99) mg/dl Calcium 8.3 L (8.5-10.1) mg/dl POC Ioniz Calcium Vsihnu (1.12-1.32) mmol/l Phosphorus 3.0 (2.5-4.9) mg/dl Magnesium 1.8 (1.8-2.4) mg/dl Total Bilirubin (0.2-1) mg/dl AST (15-37) U/L ALT (12-78) U/L Alkaline Phosphatase (45-117) U/L Troponin I (0-0.045) ng/ml Total Protein (6.4-8.2) gm/dl Albumin (3.4-5.0) gm/dl Globulin (2.5-4.0) gm/dl Albumin/Globulin Ratio (0.9-2) Lipase (73-393) U/L Beta-Hydroxybutyric Acd 17.90 H (0.2-2.81) mg/dl Urine Color Yellow Urine Appearance Clear (Clear) Urine pH 6.5 (4.5-7.5) Ur Specific [place] 1.024 (1.000-1.030) Urine Protein Trace H (Negative) Urine Glucose (UA) 3+ H (Negative) Urine Ketones Trace H (Negative) Urine Blood 1+ H (Negative) Urine Nitrite Positive A (Negative) Urine Bilirubin Negative (Negative) Urine Urobilinogen Negative (Negative) Ur Leukocyte Esterase Negative (Negative) Urine WBC (Auto) 10-30 H (0-5) /hpf Urine RBC (Auto) 5-10 H (0-4) /hpf U Hyaline Cast (Auto) 1-5 (0-5) /lpf U Epithel Cells (Auto) >30 H (0-5) /lpf Urine Bacteria (Auto) 2+ H (Negative) Ur Renal Epithelial Cell Not Reportable 01/11/20 01/11/20 Range/Units 11:40 13:28 WBC (4.8-10.8) K/uL RBC (4.7-6.1) M/uL Hgb (14.0-18.0) g/dL POC Hgb (14.0-18.0) g/dl Hct (42-52) % POC Hct (42-52) % MCV (80-100) fL MCH (25-34) pg MCHC (32-36) g/dL RDW Std Deviation (36.4-46.3) fL RDW Coeff of [place] (11.5-14.5) % Plt Count (130-400) K/uL MPV (7.4-10.4) fL Immature Gran % (Auto) % Neut % (Auto) % Lymph % (Auto) % [place] % (Auto) % Eos % (Auto) % Baso % (Auto) % Immature Gran # (Auto) (0.00-0.02) K/uL Neut # (Auto) (1.4-6.5) K/uL Lymph # (Auto) (1.2-3.4) K/uL [place] # (Auto) (0.11-0.59) K/uL Eos # (Auto) (0-0.5) K/uL Baso # (Auto) (0-0.2) K/uL VBG pH 7.44 H (7.36-7.41) POC Sodium (135-144) mmol/L Sodium (136-145) mmol/L POC Potassium (3.3-5.0) mmol/L Potassium (3.5-5.1) mmol/L POC Chloride (101-112) mmol/L Chloride (98-107) mmol/L Carbon Dioxide (21-32) mmol/L POC Total CO2 (24-31) mmol/L Anion Gap (3-11) POC Anion Gap (16-25) mmol/L POC BUN (7-18) mg/dl BUN (7-18) mg/dl Creatinine (0.6-1.4) mg/dl POC Creatinine (0.6-1.3) mg/dl Est Cr Clr Drug Dosing ml/min Est GFR ( Amer) Est GFR (Non-Af Amer) BUN/Creatinine Ratio (10-20) Glucose (70-99) mg/dl POC Glucose 397 H* (70-99) mg/dl POC Glucose (other) (70-99) mg/dl Calcium (8.5-10.1) mg/dl POC Ioniz Calcium Vishnu (1.12-1.32) mmol/l Phosphorus (2.5-4.9) mg/dl Magnesium (1.8-2.4) mg/dl Total Bilirubin (0.2-1) mg/dl AST (15-37) U/L ALT (12-78) U/L Alkaline Phosphatase (45-117) U/L Troponin I (0-0.045) ng/ml Total Protein (6.4-8.2) gm/dl Albumin (3.4-5.0) gm/dl Globulin (2.5-4.0) gm/dl Albumin/Globulin Ratio (0.9-2) Lipase (73-393) U/L Beta-Hydroxybutyric Acd (0.2-2.81) mg/dl Urine Color Urine Appearance (Clear) Urine pH (4.5-7.5) Ur Specific [place] (1.000-1.030) Urine Protein (Negative) Urine Glucose (UA) (Negative) Urine Ketones (Negative) Urine Blood (Negative) Urine Nitrite (Negative) Urine Bilirubin (Negative) Urine Urobilinogen (Negative) Ur Leukocyte Esterase (Negative) Urine WBC (Auto) (0-5) /hpf Urine RBC (Auto) (0-4) /hpf U Hyaline Cast (Auto) (0-5) /lpf U Epithel Cells (Auto) (0-5) /lpf Urine Bacteria (Auto) (Negative) Ur Renal Epithelial Cell Administered Medications Insulin Human Regular 250 (units/ Sodium Chloride) 250 mls @ 9.5 mls/hr IV .Q24H [facility]; Protocol Stop: 02/10/20 11:14 Last Titration: 01/11/20 13:37 Dose: 11.4 units/hr, 11.4 mls/hr Documented by: [id number] Cosigned by: [id number] Admin: 01/11/20 12:17 Dose: 9.5 units/hr, 9.5 mls/hr Documented by: [id number] Cosigned by: [id number] Parenteral Electrolytes (Normosol-R) 1,000 mls @ 150 mls/hr IV .Q6H40M SUYAPA Stop: 02/10/20 11:14 Last Admin: 01/11/20 11:33 Dose: 150 mls/hr Documented by: [id number] Ioversol (Optiray 320 100ml) 93 ml IV ONCE PRN PRN Reason: Interaction Checking Stop: 01/15/20 09:32 Last Admin: 01/11/20 09:34 Dose: 93 ml Documented by: [id number] Morphine Sulfate (Morphine Sulfate) 4 mg IV Q15M PRN PRN Reason: Pain Stop: 01/25/20 09:28 Last Admin: 01/11/20 10:55 Dose: 4 mg Documented by: [id number] Admin: 01/11/20 09:39 Dose: 4 mg Documented by: [id number] Discontinued Medications Sodium Chloride (Nss 1000ml) 1,000 mls @ 999 mls/hr IV .Q1H1M SUYAPA Stop: 01/11/20 10:30 Last Infusion: 01/11/20 12:11 Dose: 0 mls/hr Documented by: [id number] Admin: 01/11/20 09:39 Dose: 999 mls/hr Documented by: [id number] Ceftriaxone Sodium (Rocephin) 2,000 mg in 70 mls @ 140 mls/hr IV NOW STA Stop: 01/11/20 12:30 Last Infusion: 01/11/20 13:15 Dose: 0 mls/hr Documented by: [id number] Admin: 01/11/20 12:18 Dose: 140 mls/hr Documented by: [id number] Insulin Human Regular (Novolin R Bolus From Bag) 9 units IV ONE ONE Stop: 01/11/20 11:46 Last Admin: 01/11/20 12:18 Dose: 9 units Documented by: [id number] Cosigned by: [id number] Morphine Sulfate (Morphine Sulfate) 4 mg IV NOW STA Stop: 01/11/20 11:07 Last Admin: 01/11/20 11:19 Dose: Not Given Documented by: [id number] Ondansetron HCl (Zofran) 4 mg IV NOW STA Stop: 01/11/20 09:30 Last Admin: 01/11/20 09:39 Dose: 4 mg Documented by: [id number] Blood Pressure Blood Pressure Findings: Elevated blood pressure Discharge Plan Visit Data Chief Complaint: Flank Pain Stated Complaint: FLANK PAIN ED Provider: Edilson Finch Discharge Problem: Hyperglycemia, Abdominal pain, Acute UTI (urinary tract infection) Forms Stand Alone Forms: [facility] Prescriptions Prescriptions: No Action atorvastatin 80 mg tablet 80 mg PO DAILY Qty: 90 RF: 2 gabapentin 600 mg tablet 600 mg PO TID Qty: 270 RF: 3 metformin 750 mg tablet extended release 24 hr 750 mg PO BID Qty: 60 RF: 5 albuterol sulfate 90 mcg/actuation HFA aerosol inhaler 2 puff INH Q4H PRN (Reason: Shortness Of Breath) RF: 0 Lacto.acidophilus-Bif.animalis 31 billion cell capsule 1 cap PO DAILY RF: 0 aspirin 81 mg tablet,delayed release (DR/EC) 81 mg PO DAILY RF: 0 Discharge Problem: Abdominal pain Qualifiers: Abdominal location: periumbilical Qualified Code(s): R10.33 - Periumbilical pain
[2020-01-11 09:49] LABS: Appearance Urine Clear (Clear); Bacteria Urine Automated 2+ (Negative); Bilirubin Urine Negative (Negative); Blood Urine 1+ (Negative); Color Urine Yellow; Epithelial Cell Urine Auto >30 /lpf (0-5); Glucose Urine UA 3+ (Negative); Ketones Urine Trace (Negative); Leukocyte Esterase Urine Negative (Negative); Nitrite Urine Positive (Negative); Protein Urine Trace (Negative); Specific Gravity Urine 1.024 (1.000-1.030); Urobilinogen Urine Negative (Negative); pH Urine 6.5 (4.5-7.5)
[2020-01-11 10:09] LABS: Alanine Aminotransferase 38 U/L (12-78); Albumin Globulin Ratio 0.7 (0.9-2); Albumin Level 3.3 gm/dl (3.4-5.0); Alkaline Phosphatase 156 U/L (45-117); Aspartate Aminotransferase 18 U/L (15-37); BUN Creatinine Ratio 18.5 (10-20); Bilirubin,Total 0.6 mg/dl (0.2-1); Blood Urea Nitrogen 28 mg/dl (7-18); Calcium 9.1 mg/dl (8.5-10.1); Carbon Dioxide 22 mmol/L (21-32); Chloride 95 mmol/L (98-107); Creatinine Clr Calc Pharmacy 58.4 ml/min; Est GFR (African American) 55.4; Est GFR (Non-African American) 47.8; Globulin 4.4 gm/dl (2.5-4.0); Glucose 559 mg/dl (70-99); Lipase 276 U/L (73-393); Potassium 3.8 mmol/L (3.5-5.1); Sodium 130 mmol/L (136-145); Total Protein 7.7 gm/dl (6.4-8.2); Troponin I < 0.015 ng/ml (0-0.045)
[2020-01-11 10:26] LABS: Beta-Hydroxybutyrate 16.06 mg/dl (0.2-2.81)
--- NOTE | 2020-01-11 10:44 | CT Scan Report ---
CT abd pelvis IV con only CLINICAL HISTORY: 64 years-old Male presenting with mid abdominal pain; h/o urostomy and kidney stone s. TECHNIQUE: Multidetector CT of the abdomen and pelvis was performed after the administration of intra venous contrast. IV contrast: 93 mL of Optiray 320. One or more dose lowering techniques were used co nsistent with the principles of ALARA (as low as reasonably achievable), including automatic exposure control, mA or kV adjustment to individual patient size, and/or use of iterative reconstruction. COMPARISON: 11/01/2019. CT DOSE (mGy.cm): The estimated cumulative dose is 1172.24 mGy.cm. 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 Lung bases: Normal heart size. Coronary artery calcification. No pericardial or pleural effusion. No focal infiltrate or nodule at the lung bases. Liver: Normal morphology. No liver lesion. Patent hepatic vasculature. Biliary: No intrahepatic or extrahepatic biliary ductal dilatation. Normal gallbladder. Pancreas: Normal. Spleen: Normal. Adrenal glands: Normal. Kidneys and ureters: Multiple renal cysts the largest in the left kidney and interpolar region to the lower pole. This is altered in configuration from prior exam and now measures 21 mm in diameter, pre viously 11 mm this is also slightly elevated in density. Overlying thickening of the renal capsule. N o nephrolithiasis. Parenchymal calcification noted at the lower pole of the right kidney. Mild bilate ral pelvocaliectasis and distention of the ureters. No evidence of obstruction of the ureters. These insert onto a right lower quadrant ileal conduit. Bladder: Status post cystectomy. Pelvic organs: Status post prostatectomy. Bowel: Diverticulosis of the sigmoid and distal descending colon. Mild wall thickening of the distal sigmoid colon without pericolonic inflammatory change, likely chronic diverticular disease/circular m uscle hyperplasia. Mild stool burden in the right colon. The appendix is normal. Postsurgical changes in the right lower quadrant from ileal conduit creation. The distal small bowel anastomosis is paten t. No bowel obstruction. Peritoneal cavity: No free fluid or intraperitoneal gas. Lymph nodes: No enlarged lymph nodes in the abdomen or pelvis. Vasculature: Atherosclerosis of the normal caliber abdominal aorta. IVC patent. Abdominal wall: Right mid abdominal ileal conduit. No significant peristomal hernia. Musculoskeletal: Degenerative changes of the spine. No destructive osseous lesion. Epidural gas in th e lumbar spine is evident both ventrally and dorsally. This may represent spread of degenerative rela bishop vacuum disc phenomenon. IMPRESSION: 1. Interval increase in size of the left renal lesion at the interpolar to lower pole region. This w as previously 11 mm and consistent with a simple cyst. This now measures 21 mm with slightly elevated density. The presence of overlying capsular thickening and/or perinephric stranding suggest either i nterval hemorrhage into a cyst or superinfection. No urothelial thickening to further suggest infecti on. Correlate with urinalysis. 2. Distention of the urinary collecting systems likely due to reflux uropathy. Hydronephrosis is not favored. 3. Status post cystoprostatectomy with ileal conduit creation in the right mid abdomen. 4. Diverticulosis coli with chronic diverticular disease of the distal sigmoid colon. 5. Epidural gas in the lumbar spine evident both ventrally and dorsally. It is somewhat atypical to see gas dorsally though this may still be related to degenerative vacuum disc phenomenon with spread of gas. Correlate if there has been recent instrumentation or injection. ACT 112: Negative or not required by law. Electronically signed by: Benton Recio M.D. 01/11/2020 10:42 AM
[2020-01-11] MEDS ORDERED: MoRPHine SULFATE 4 MG/ML 1 ML CARP\\VIAL IV STA (11:06)
[2020-01-11] MEDS ORDERED: NORMOSOL-R 1,000 ML IV SCH (11:15)
[2020-01-11] MEDS ORDERED: NovoLIN-R BOLUS FROM BAG IV ONE (11:45)
[2020-01-11] MEDS ORDERED: cefTRIAXone SODIUM 2,000 MG/70 ML BAG IV STA (12:01)
[2020-01-11] MEDS: INSULIN REGULAR 250 UNITS in SODIUM CHLORIDE 0.9% 247.5 ML IV SCH (12:17)
[2020-01-11 12:24] LABS: BUN Creatinine Ratio 19.3 (10-20); Calcium 8.3 mg/dl (8.5-10.1); Creatinine Clr Calc Pharmacy 68.9 ml/min; Est GFR (African American) 67.6; Est GFR (Non-African American) 58.3; Magnesium 1.8 mg/dl (1.8-2.4); Potassium 4.1 mmol/L (3.5-5.1)
[2020-01-11 12:48] LABS: Beta-Hydroxybutyrate 17.9 mg/dl (0.2-2.81)
--- NOTE | 2020-01-11 13:34 | History & Physical Report ---
Date of Service January 11, 2020 Assessment & Plan (1) Hyperglycemia: Mr. Anna is a 64 yo M with a PMHx of type II diabetes who came to the ED with R sided abdominal pain, found to be in hyperglycemic hyperosmolar syndrome. - BG 559 on admission - mild gapped metabolic acidosis - effective plasma osmolarity 731 - Volume resuscitation with 1L normal saline - fluid maintenance with 1/2 normal saline at 150mls/hr - HR 74, BP 142/83, patient not cool or clammy on exam, appears euvolemic - potassium level at 4.1; KCl riders (40meq per L) added to IVF - insulin drip ordered at 9.5 units per hour; titrate according to BGs - monitor vitals - recheck BMP in several hours and in AM labs (2) Diabetes mellitus: - uncontrolled disease - HbA1c from 10/23/19 15.1; level from 11/07/19 at 14.7, well above goal - patient currently only on mono-therapy with metformin 750mg, BID - patient insists on medication compliance; likely related to diet - he would benefit from meeting slab lifting engineer for dietary/lifestyle modifications - likely will require short-term insulin use on discharge to bring A1c to goal (3) Abdominal pain: - etiology unknown. - patient denies symptoms of GERD/PUD - A/P CT scan showed no evidence of kidney stone, normal gallbladder; diverticulosis (not diverticulitis), and moderate constipation in ascending colon - UA possibly concerning for UTI, although description of pain in abdomen/flank is more superior than what would be expected with cystitis - will order scheduled miralax in the event constipation is root - diclofenac gel ordered prn in the event it is MSK - morphine Q2h for analgesic - serial exams (4) Acute UTI (urinary tract infection): - questionable - UA on admission + for nitrites, 10-30 WBCS, 2+ bacteria; culture pending - WBC normal, afebrile - patient asymptomatic - given 2g ceftriaxone in ED - consider he is a male with a surgically altered genitourinary tract, will keep Rocephin on for now (5) Bladder cancer: - status post cysttecomy and prostatecomy - status post chemotherapy - in remission since 2017 (6) CAD (coronary artery disease): - patient with history of PCI (stent placement) - continue high-intensity statin - continue daily baby ASA (7) Constipation: - visualized on A/P CT scan - miralax once daily (8) Cyst of left kidney: - 21 cm cyst visualized on A/P CT scan, increased from 11cm on previous scan - consider dedicated MRI with renal views for further characterization Dispo: Med/Surg Diet: Diabetic/Heart Healthy Code: Full DVT ppx: Heparin SQ 5,00 units, q12 History of Present Illness Primary Care Provider: Vasyl Westbrook DO Mr. Anna is a 64 yo gentleman with a PMHx of type II diabetes mellitus and tracee dder cancer s/p cystectomy and prostatectomy who presented to the emergency department today with R sided abdominal/flank pain of 1 day duration. When the discomfort began yesterday, he experienced associated nausea and chills, but no vomiting. He denies a sensation of reflux/heartburn. Initially, he thought the discomfort represented hunger pains, which prompted him to consume more food. In particular, he ate carbohydrate rich foods (arabic fries, bread, spaghetti, candy, chocolate pudding and a vanilla milkshake). Eating did not help the discomfort, although taking OTC Aleve provided some relief. Of note, basic labs revealed Mr. Anna had an elevated blood glucose >500 in the ED. For his diabetes, he is mono-therapy with metformin 750mg, BID. He denies any missed doses leading up to this admission. As for bladder cancer, he did undergo chemotherapy 2 years ago after his cystectomy and prostatectomy. He has been in remission since 2017. ED course: BG elevated to 559. Beta-hydroxybutyric acid elevated to 16. Bicarb at 22, Anion Gap 13. Na 130, K 4.1. Cr 1.51 (baseline 1.2-1.4). UA + for trace ketones, 3+ glucose, 2+ bacteria, 10-30 WBCs, + nitrites, 1+ blood. Urine culture pending. Abdominopelvic CT scan showing no evidence of kidney stone, normal gallbladder, a 21 cm L sided renal cyst, diverticulosis, and moderate stool burden in the ascending colon. Patient was administered 1 liter bolus of normal saline and started on Normosol at 150mls/hr, 2grams of IV ceftriaxone, insulin ggt, and given a dose of morphine. Allergies Allergy/AdvReac Type Severity Reaction Status Date / Time No Known Allergies Allergy Unverified 01/11/20 10:04 Home Medications Home Medications Medication Instructions Recorded Confirmed Type atorvastatin 80 mg tablet 80 mg PO DAILY #90 tab 06/07/19 01/11/20 Rx gabapentin 600 mg tablet 600 mg PO TID #270 tab 10/23/19 01/11/20 Rx Lactobacillus 1 cap PO DAILY 12/18/19 01/11/20 History acidophilus-Bifidobac.animalis 31 billion cell capsule albuterol sulfate 90 mcg/actuation 2 puff INH Q4H PRN 12/18/19 01/11/20 History aerosol inhaler aspirin 81 mg tablet,delayed 81 mg PO DAILY 12/18/19 01/11/20 History release metformin 750 mg tablet,extended 750 mg PO BID #60 tab 12/25/19 01/11/20 Rx release 24 hr Past Med/Surg History Medical History CAD (coronary artery disease) Diabetes mellitus (Chronic) High cholesterol (Inactive) Hypertension (Inactive) Malignant tumor of urinary bladder (Inactive) Surgical History History of ankle surgery History of coronary angioplasty S/P colonoscopy S/P tooth extraction S/P ureteral stent placement Family History Mother Colorectal cancer Heart disease Diabetes Cardiac disorder Father Hypertension Sister Breast cancer Denies family history of Ovarian cancer Prostate cancer Myocardial infarction Social History Preferred Language: Angolan Communication Ability: Effective Shook Splicer Required: No Beliefs That Will Affect Care: None marital status: Current Living Situation: Spouse current occupational status: retired Feels Safe at Home: Yes Safety Concerns: Feels Safe At This Time Smoking Status: Former smoker Hx Alcohol Use: No Hx Substance Use: No Review of Systems Constitutional: + chills and + malaise Gastrointestinal: + abdominal pain and + nausea; no vomiting Genitourinary: no hematuria Physical Exam Constitutional: WD/WN, vitals as above + ill appearing, cooperative and + overweight Eyes: + anicteric sclerae ENMT: external ear and nose normal, oropharynx normal Neck: normal visual inspection Respiratory: normal respiratory effort, lungs clear to auscultation Cardiovascular: RRR, no murmur, no edema Heart Sounds: normal S1 and normal S2 Extremities: no pedal edema Gastrointestinal (Abdomen): Inspection/Auscultation: + abdomen distended Percussion/Palpation: + abdomen tender (RUQ) and abdomen soft; no guarding Skin: no rashes, warm and dry Psychiatric: A+Ox3, euthymic affect Genitourinary: + Urostomy bag in place draining pale yellow colored urine without visible blood clots Results & Data Results & Data ([facility]) Vital Signs (Past 12 Hours) Vital Signs Temp Pulse Resp BP Pulse Ox 01/11/20 12:00 72 19 99 01/11/20 11:30 78 19 124/62 01/11/20 11:00 76 20 115/62 01/11/20 10:30 69 20 142/71 H 01/11/20 10:27 72 20 144/89 H 01/11/20 09:04 36.6 C 53 L 20 150/77 H 96 Supervising Physician Co-Signing Physician Notes I personally examined the patient and verified all smiley points of history and exam, discussed case, and agree with decision making with Dr Chan. to me he complains of R back pain not abdominal pain - when dr chan revisits he then again complains more of abdominal pain. pain was the main thing bringing him to hospital. no fevers, did have chills yesterday but only once (claims lasted 20mins but only once, around lunch) and sweats maybe overnight - but those are only on directed questioning, ROS type - not spontaneously volunteered. sugars seem to be an incidental finding to him vitals noted laying in bed no severe distress mildly fatigued mildly uncomfortable. breathing unlabored no accessory muscles, skin iwthout rashes or pallor. R sided mid thoracic paraspinals high tone/tender - to me he says this is the area that is hurting him and seems to be reproducible. pain - back vs abdomen vs ??abdomen radiating to back. fortunately with CT reassurring and labs/vitals reassuring, threatening etiologies lower on ddx. chills are notable, earn[place] in the context of his urinary anatomy and UA, but nothing else on his presentation appears pyelo. possibly GB given RUQ rads to back pattern - but exam and labs don't support this (nor does CT, although if suspicion of GB rises would obviously want to proceed to more dedicated gallbladder w/u). rocephin for chills and UA, given postop urinary anatomy, but follow clinically and follow WBC, CRP as it's really not clear that he even has infection. serial hx, serial exams, supportive care, pain control hyperglycemic dehydration/SANTHOSH - fluids, insulins, follow closely otherwise as above Resident Activity Tracking Resident Involvement: Resident Care Provided Care Provided: Adult Hospital Medicine (1) Abdominal pain Abdominal location: periumbilical Qualified Code(s): R10.33 - Periumbilical pain
[2020-01-11] MEDS ORDERED: ACETAMINOPHEN 325 MG TAB PO PRN (14:25)
[2020-01-11] MEDS ORDERED: ALUMINUM/MAGNESIUM SUSP 30 ML UDC PO PRN (14:25)
[2020-01-11] MEDS ORDERED: MAGNESIUM HYDROXIDE SUSP 30 ML UDC PO PRN (14:25)
[2020-01-11] MEDS ORDERED: POLYETHYLENE (MIRALAX) 17 GM PACK PO PRN (14:25)
[2020-01-11] MEDS: INSULIN ASPART 100 UNITS/ML 3 ML PEN SC SCH ×3 (14:37→22:05)
[2020-01-11] MEDS ORDERED: POLYETHYLENE (MIRALAX) 17 GM PACK PO ONE (14:53)
[2020-01-11] MEDS ORDERED: SODIUM CHLORIDE 0.45 % 1,000 ML IV SCH (15:00)
[2020-01-11] MEDS: POTASSIUM CHLORIDE / WTR 10 MEQ/100 ML PLCT IV SCH ×4 (15:55→19:29)
[2020-01-11 16:37] LABS: BUN Creatinine Ratio 15.5 (10-20); Calcium 8.5 mg/dl (8.5-10.1); Creatinine Clr Calc Pharmacy 68.2 ml/min; Est GFR (African American) 66.4; Est GFR (Non-African American) 57.3; Magnesium 1.8 mg/dl (1.8-2.4); Phosphorus 2.1 mg/dl (2.5-4.9)
[2020-01-11 16:38] LABS: Potassium 3.4 mmol/L (3.5-5.1)
--- NOTE | 2020-01-11 16:59 | Electrocardiogram Report ---
Test Reason : Blood Pressure : / mmHG Vent. Rate : 071 BPM Atrial Rate : 071 BPM P-R Int : 156 ms QRS Dur : 082 ms QT Int : 408 ms P-R-T Axes : 056 039 041 degrees QTc Int : 443 ms Sinus rhythm with frequent Premature ventricular complexes Possible Left atrial enlargement Borderline ECG When compared with ECG of 27-FEB-2018 00:17, Premature ventricular complexes are now Present Confirmed by Chaz Pritchard ([id number]) on 01/11/2020 4:58:40 PM Referred By: REFERRED SELF Confirmed By:Dimitry Pritchard
[2020-01-11] MEDS: DICLOFENAC SOD 1% GEL 100 GM TUBE EXT SCH ×2 (17:14→20:42)
[2020-01-11] MEDS ORDERED: ACETAMINOPHEN 1,000 MG/100 ML VIAL IV STA (18:02)
--- NOTE | 2020-01-11 18:02 | Billing Data ---
Date of Service January 11, 2020 Coding Level of Care Code 53309 OBS Care - Level 3
[2020-01-11] MEDS ORDERED: ACETAMINOPHEN 65 ML IV PRN (18:03)
[2020-01-11] MEDS: D5W AND 1/2NSS 1,000 ML IV SCH (18:25)
[2020-01-11] MEDS ORDERED: HEPARIN SOD 5,000 UNIT/0.5 ML VIAL SQ SCH (21:00)
[2020-01-12] MEDS ORDERED: ACETAMINOPHEN 500 MG TAB PO STA (00:33)
[2020-01-12] MEDS: ACETAMINOPHEN 325 MG TAB PO PRN ×3 (00:35→21:19)
[2020-01-12] MEDS: D5W AND 1/2NSS 1,000 ML IV SCH (02:38)
[2020-01-12 02:40] LABS: Basophils # (auto) 0.02 K/uL (0-0.2); Basophils % (auto) 0.2 %; Eosinophils # (auto) 0.01 K/uL (0-0.5); Eosinophils % (auto) 0.1 %; Hematocrit (blood only) 42.4 % (42-52); Hemoglobin 15.1 g/dL (14.0-18.0); Immature Granulocytes # (auto) 0.25 K/uL (0.00-0.02); Lymphocytes # (auto) 0.29 K/uL (1.2-3.4); Lymphocytes % (auto) 2.3 %; Mean Corpuscular Hemoglobin 31.9 pg (25-34); Mean Corpuscular Volume 89.5 fL (80-100); Mean Platelet Volume 10.6 fL (7.4-10.4); Monocytes # (auto) 0.37 K/uL (0.11-0.59); Neutrophils # (auto) 11.45 K/uL (1.4-6.5); Neutrophils % (auto) 92.4 %; Platelet Count 108 K/uL (130-400); RDW Coefficient of Variation 13.2 % (11.5-14.5); RDW Standard Deviation 43.8 fL (36.4-46.3); Red Blood Count 4.74 M/uL (4.7-6.1); White Blood Count 12.39 K/uL (4.8-10.8)
[2020-01-12 02:42] LABS: Mean Corpuscular Hgb Conc 35.6 g/dL (32-36)
[2020-01-12 02:53] LABS: Influenza A virus by PCR Neg for Influ A (Neg); Influenza B virus by PCR Neg for Influ B (Neg)
[2020-01-12 03:03] LABS: Calcium 8.4 mg/dl (8.5-10.1); Creatinine Clr Calc Pharmacy 60.3 ml/min; Est GFR (African American) 57.2; Est GFR (Non-African American) 49.4; Magnesium 1.4 mg/dl (1.8-2.4); Phosphorus 2.5 mg/dl (2.5-4.9); Potassium 3.7 mmol/L (3.5-5.1)
[2020-01-12] MEDS ORDERED: SODIUM CHLORIDE 0.9% 1000ML 500 ML IV ONE (03:05)
[2020-01-12 03:20] LABS: Beta-Hydroxybutyrate 23.52 mg/dl (0.2-2.81)
[2020-01-12] MEDS ORDERED: PHARMACY GLYCEMIC MGMT CONSULT PRN (03:29)
[2020-01-12] MEDS ORDERED: GLUCOSE 40% GEL 15 GM TUBE PO PRN (03:30)
[2020-01-12] MEDS ORDERED: NovoLIN-R BOLUS FROM BAG IV ONE (03:30)
[2020-01-12] MEDS ORDERED: DEXTROSE 50% 50 ML SYRINGE IV PRN (03:30)
[2020-01-12] MEDS ORDERED: INSULIN HUMAN REGULAR IV BOLUS 8 UNITS in SYRINGE 0 ML IV ONE (03:30)
[2020-01-12] MEDS ORDERED: GLUCAGON FOR INJ 1 MG VIAL IM PRN (03:30)
[2020-01-12] MEDS ORDERED: GLUCOSE 10 TABS/TUBE PO PRN (03:30)
[2020-01-12] MEDS ORDERED: CARBOHYDRATES FOR HYPOGLYCEMIA PO PRN (03:30)
[2020-01-12] MEDS ORDERED: SODIUM CHLORIDE 0.9% 1000ML 1,000 ML IV SCH (03:45)
[2020-01-12] MEDS ORDERED: PANTOprazole 40 MG in DEXTROSE 5% 100 ML IV SCH (03:45)
[2020-01-12] MEDS: MAGNESIUM SULFATE / D5W 1 GM/100 ML BAG IV SCH ×2 (04:02→06:07)
[2020-01-12] MEDS: MoRPHine SULFATE 4 MG/ML 1 ML CARP\\VIAL IV PRN ×6 (04:08→16:48)
[2020-01-12] MEDS: PANTOprazole 40 MG in SYRINGE 0 ML IV SCH ×2 (04:10→07:48)
[2020-01-12 04:14] LABS: Allen Test Pos (Pos); Base Excess ABG -3.7 mEq/L (-9-1.8); HCO3 ABG 18 mmol/L (19-24); Oxygen Saturation ABG 95.9 % (90-95); PCO2 ABG 25 mmHg (35-46); PO2 ABG 72 mmHg (80-95); pH ABG 7.48 (7.35-7.45)
[2020-01-12 04:21] LABS: Fibrinogen 655 mg/dl (184-400); INR 1.1 (0.9-1.1); Partial Thromboplastin Time 28.4 Seconds (21.0-31.0); Prothrombin Time 11.8 Seconds (9.0-12.0)
[2020-01-12 05:37] LABS: Hematocrit (blood only) 43.3 % (42-52); Hemoglobin 14.5 g/dL (14.0-18.0)
[2020-01-12] MEDS: SODIUM CHLORIDE 0.9% 1000ML 1,000 ML IV SCH ×3 (06:07→21:19)
[2020-01-12] MEDS ORDERED: INSULIN ASPART 100 UNITS/ML 3 ML PEN SC SCH (07:30)
--- NOTE | 2020-01-12 07:30 | XRay Report ---
XR chest 1V portable HISTORY: 64 years-old Male worsening oxygen requirement, new fever acute fever with hypoxia COMPARISON: CT abdomen and pelvis 01/11/2020, chest radiographs 07/16/2018, CT chest 11/01/2019. TECHNIQUE: Portable AP view of the chest FINDINGS: Cardiac silhouette is upper limits of normal in size. There is mild pulmonary vascular congestion. Mi ld interstitial coarsening appears to be on a chronic basis. No pneumothorax, pleural effusion, overt pulmonary edema or focal airspace consolidation. Degenerative changes of the shoulders and spine. IMPRESSION: Suggestion of mild pulmonary vascular congestion. No airspace consolidation to suggest pn eumonia. ACT 112: Negative or not required by law. The above report was generated using voice recognition software. It may contain grammatical, syntax o r spelling errors. Electronically signed by: Sushil Diaz M.D. 01/12/2020 7:28 AM
[2020-01-12] MEDS: INSULIN ASPART 100 UNITS/ML 3 ML PEN SC SCH ×4 (07:42→21:02)
[2020-01-12] MEDS: ATORVASTATIN 40 MG TAB PO SCH (07:43)
[2020-01-12] MEDS: DICLOFENAC SOD 1% GEL 100 GM TUBE EXT SCH ×4 (07:44→21:03)
[2020-01-12] MEDS: ONDANSETRON INJ 2 MG/ML 2 ML VIAL IV PRN (07:47)
[2020-01-12] MEDS: cefTRIAXone SODIUM 2,000 MG in DEXTROSE 5% 50 ML IV SCH (07:48)
--- NOTE | 2020-01-12 08:57 | Hospitalist Progress Note ---
Date of Service January 12, 2020 Assessment & Plan (1) Hyperglycemia: Mr. Anna is a 64 yo M with a PMHx of uncontrolled type II diabetes who came to the ED with R sided abdominal/flank pain, found to be in hyperglycemic hyperosmolar syndrome. Sugars reached goal range on insulin drip, and remained in range overnight. Sugars with further improvement today. - BG 559 on admission; goal range initially set to 250-350 to avoid correcting too quickly. Patient remained near goal range overnight. - effective plasma osmolarity 531, down from 731 on admission - mildly elevated anion gap (15); beta-hydroxybutyric acid elevated to 23 - serum bicarb 20; pH 7.48 - patient received volume resuscitation (2.5 liter bolus); now on maintenance fluids with normal saline at 150mls/hr - potassium at 3.9; KCl riders (40meq per L) added to IVF - pharmacy managing insulin - precipitating event: UTI vs. poor regimen compliance vs. multifactorial (2) Diabetes mellitus: - uncontrolled disease - HbA1c from 11/07/19 at 14.7, well above goal - patient currently only on mono-therapy with metformin 750mg, BID - patient insists on medication compliance; elevated sugars likely related to diet - adaptive physical educator consult placed - may require insulin therapy in the short-term on discharge to bring A1c to goal and close follow up with PCP - patient already on high intensity statin; consider adding MICHAEL inhibitor for renal protection (3) Abdominal pain: - difficult to get a clear history; story seems to be shifting; at times complains to abdominal pain --> flank --> right low back - etiology unknown - unlikely to be from hyperglycemia hyperosmolar syndrome - patient denies symptoms of GERD/PUD - lipase normal. ALT/AST normal. Alk Phos 156 on admission, down to 118. Hep C screen neg. - A/P CT scan showed no evidence of kidney stone, normal pancreas, gallbladder and liver; diverticulosis (not diverticulitis), and moderate constipation in ascending colon. - UA possibly concerning for UTI, although description of pain in abdomen/flank/back is more superior than what would be expected with plain cystitis, yet clinical picture does not support pyelonephritis - patient has demonstrated pain-seeking behavior - will order scheduled miralax in the event constipation is root - diclofenac gel ordered prn in the event it is MSK - tylenol and morphine for analgesia - serial exams (4) Acute UTI (urinary tract infection): - questionable - UA on admission + for nitrites, 10-30 WBCS, 2+ bacteria; urine culture pending - WBC mildly increased from 10 on admission to 12 - CRP elevated to 12 on admission, minimal increase to 16 today - afebrile on admission, fever of 37.9 overnight - patient asymptomatic, although he does have a surgically altered genitourinary tract - on day 2 of Rocephin - considering he is a male, will keep Rocephin on for now (5) Concern about infectious disease without diagnosis: - patient reported history of chills 1 day prior to presentation - afebrile on admission, spiked fever of 37.9 overnight - WBC normal on admission, mildly increased to 12 - CRP elevated to 12 on admission, mildly increased to 16 - 2/2 blood cultures pending - rapid COVID test negative; Flu swab negative; Nasal MRSA swab negative - CXR showing no consolidation concerning for PNA; no crackles appreciated on exam. Although not totally ruled out, suspicion for PNA is minimal - cholecystitis seems unlikely given normalization of alk phos and appearance of gallbladder on CT scan (although dedicated imaging not done) - leading concern is UTI given results of UA; urine culture pending - patient on Day 2 of Rocephin - Tylenol for anti-pyretic (6) Elevated serum creatinine: - Cr elevated to 1.41 - baseline ~1.2-1.3 - likely secondary to reduced GFR in setting of hypovolemia - continue IV fluids - BMP in morning (7) Leukocytosis: - WBC mildly elevated to 12 - etiology: infection vs. physiologic stress response - continue to monitor (8) Gross hematuria: - blood in urostomy bag - likely secondary to acute UTI - Hgb stable at 14.5 - concern for DIC is low at this time - restarted Heparin for DVT ppx; can continue to hold ASA as patient has stable coronary disease and stent was placed > 1 year ago - discontinued protonix - CBC in AM (9) Constipation: - visualized on A/P CT scan - miralax scheduled once daily (10) Cyst of left kidney: - 21 cm cyst visualized on A/P CT scan, increased from 11cm on previous scan - radiology notes increased density of lesion and suggests consideration of h emorrhagic vs. infectious transformation - Rocephin providing coverage in the event of pyleo, although clinical picture does not fit with this etiology (11) Electrolyte abnormality: - K at 3.9; K riders ordered - Na normal at 138 - Phos normal at 2.5 - Mag low at 1.4; replacement ordered - likely due to osmotic diuresis in setting of HHS - BMP, phos and mag levels in AM (12) Bladder cancer: - status post cysttecomy and prostatecomy - status post chemotherapy - in remission since 2017 (13) CAD (coronary artery disease): - patient with history of PCI (stent placement) > 1 year ago - continue high-intensity statin - holding daily baby ASA in setting of hematuria (14) Diverticulosis: - visualized on A/P CT scan - no active management Dispo: PCU Diet: Diabetic/Heart Healthy Code: Full DVT ppx: Heparin SQ 5,00 units, q12 Admission and Anticipated Discharge Date Admission Date: January 11, 2020 Supervising Physician Co-Signing Physician Notes I personally examined the patient and verified all smiley points of history and exam, discussed case, and agree with decision making with Dr Chan. still feeling fairly lousy - but on repeated questioning both open ended and direct - pain is R back and does not have abdominal pain at this point. low grade temp and repeated chills through the night, more blood in urostomy bag. discussed sugars as well. vitals noted laying in bed fatigued but no distress. heent nc at mmm. lungs clear to me - no r/r/w. did have faint scattered wheeze noted by dr chan immediately prior to my exam - but this cleared by the time i listened. abd soft mildly distended on and off not entirely reliably reproducible RUQ pain - at times seems mild, at times moderate all within the same exam - certainly no guarding no rebound no rigidity. upper abdomen hurts, lower anterior rib cage does not. R sided paraspinals tender more than ribs, and palpation of paraspinals reproduces his pain quite reliably - but also CVA percussion on right (not left) causes pain. no cyanosis no rashes no pallor no icterus no focal neuro deficits infectious picture - yesterday ddx was very wide as presenting complaint was really more either RUQ abdominal pain (to dr chan) or R mid/paraspinal back pain (to me) -- today the pain seems to be a lesser problem compared to his infectious picture - low grade temp, witness/repeated chills, WBC while only nominally up is technically high, CRP high but nonspecific -- starting to suspect that his clinical picture probably is that of a UTI, question mild pyelonephritis on the R (given pain/sx) and that his symptoms/hx/PE have been hard to totally localize due to surgically reconstructed urinary anatomy. that said, ddx still reasonably wide - more certain we're treating UTI but still continuing to favian out ddx (pneumonia unlikley but not 100% ruled out -continue follow lung exams) (blood cultures pending) (biliary disease unlikley but not totally impossible) pain - probably relates to above, but continue with serial exam and pain control. if urine culture negative would consider imaging Tspine since vague infectious picture with pain in that region hyperglycemic dehydration/SANTHOSH/uncontrolled DM2 - fluids, insulins, follow closely, educated on critical importance of lifestyle control in DM2 otherwise as above Subjective Per night team, Mr. Anna developed a temperature of 37.9, tachycardia, an increased oxygen requirement and rigors: infectious work up thus far negative other than possible UTI. Tylenol was administered and HR improved with 1.5 liter fluid bolus. Blood sugars increased, insulin adjusted accordingly. Nursing reported seeing blood in his urostomy bag, prompting concern for DIC. Platelets low and fibrogen elevated, however remainder of coags were normal. Hgb stable at 14.5. SQ heparin and aspirin were d/c; he was started on protonix. Patient was transferred to PCU for close monitoring Mr. Anna reports feeling better today compared to last night. He still does not seem to be able to explain where exactly his abdominal pain is coming from (ie belly, flank or back). Nursing mentioned he requested dilaudid. He has not yet had a bowel movement. Patient reports he bleed into his urostomy bag the last time he a had a CT scan as well. Review of Systems Review of Systems: All systems reviewed & are unremarkable except as noted in HPI & below Musculoskeletal: + back pain Physical Exam Constitutional: WD/WN, vitals as above cooperative and + overweight Eyes: + anicteric sclerae ENMT: external ear and nose normal, oropharynx normal Neck: normal visual inspection Respiratory: normal respiratory effort Auscultation: + wheezes (expiratory; bilateral upper lung torres); no crackles Cardiovascular: RRR, no murmur, no edema Heart Sounds: normal S1 and normal S2 Extremities: no pedal edema Gastrointestinal (Abdomen): Inspection/Auscultation: + abdomen distended Percussion/Palpation: + abdomen tender (RUQ) and abdomen soft; no guarding Grace's sign negative Musculoskeletal: +paraspinal muscle tenderness on R midback Skin: no rashes, warm and dry Psychiatric: A+Ox3, euthymic affect Results & Data Results & Data ([facility]) Vital Signs (Past 12 Hours) Vital Signs Temp Pulse Pulse Pulse Resp BP BP 01/12/20 08:04 101 H 17 106/75 01/12/20 08:00 100 H 21 01/12/20 07:03 36.8 C 100 H 104/71 01/12/20 06:00 36.5 C 105 H 24 129/89 01/12/20 05:04 36.6 C 107 H 20 107/74 01/12/20 03:00 01/12/20 02:46 37.1 C 123 H 24 119/76 01/12/20 01:55 130 H 01/12/20 01:14 132 H 01/12/20 00:18 37.9 C H 62 16 121/66 Pulse Ox 01/12/20 08:04 92 01/12/20 08:00 91 01/12/20 07:03 92 01/12/20 06:00 94 01/12/20 05:04 98 01/12/20 03:00 95 01/12/20 02:46 86 L 01/12/20 01:55 01/12/20 01:14 01/12/20 00:18 94 Resident Activity Tracking Resident Involvement: Resident Care Provided Care Provided: Adult Hospital Medicine (1) Abdominal pain Abdominal location: periumbilical Qualified Code(s): R10.33 - Periumbilical pain
[2020-01-12] MEDS ORDERED: INSULIN GLARGINE SOLOSTAR 100 UNITS/ML 3 ML PEN SC ONE (09:00)
[2020-01-12] MEDS ORDERED: ASPIRIN 81 MG ECTAB PO SCH (09:00)
--- NOTE | 2020-01-12 09:11 | Pharmacy Report ---
Glycemic Control Consultation - Date of Service January 12, 2020 - Scope Scope: Glycemic Pharmacist consulted for glycemic control and to write orders per [facility] inpatient glycemic control protocol. - Objective Weight: 96.5 kg Accuchecks BSG (last 24hrs): 01/11/20 01/11/20 01/11/20 09:26 09:32 11:25 Glucose 559 H* POC Glucose 446 H* POC Glucose (other) 540 H* 01/11/20 01/11/20 01/11/20 11:40 13:28 14:28 Glucose 465 H* POC Glucose 397 H* 314 H* POC Glucose (other) 01/11/20 01/11/20 01/11/20 15:21 16:12 16:26 Glucose 245 H POC Glucose 270 H 244 H POC Glucose (other) 01/11/20 01/11/20 01/11/20 16:39 17:25 18:22 Glucose POC Glucose 185 H 209 H 196 H POC Glucose (other) 01/11/20 01/11/20 01/11/20 19:20 20:20 21:25 Glucose POC Glucose 282 H 231 H 269 H POC Glucose (other) 01/11/20 01/12/20 01/12/20 22:27 00:54 02:20 Glucose 367 H* POC Glucose 263 H 287 H POC Glucose (other) 01/12/20 01/12/20 01/12/20 03:06 03:07 05:02 Glucose POC Glucose 367 H* 380 H* 279 H POC Glucose (other) 01/12/20 01/12/20 01/12/20 06:05 07:37 08:30 Glucose POC Glucose 266 H 349 H* 319 H* POC Glucose (other) Laboratory Data (last 24hrs): 01/11/20 01/11/20 01/11/20 09:26 11:40 16:12 Potassium 3.8 4.1 3.4 L D Carbon Dioxide 22 21 26 Anion Gap 13.0 H 11.0 7.0 Creatinine 1.51 H 1.28 1.30 Est Cr Clr Drug Dosing 58.4 68.9 68.2 Beta-Hydroxybutyric Acd 16.06 H 17.90 H 01/12/20 02:20 Potassium 3.7 Carbon Dioxide 19 L Anion Gap 15.0 H Creatinine 1.47 H Est Cr Clr Drug Dosing 60.3 Beta-Hydroxybutyric Acd 23.52 H - Recent Pertinent Medications Outpatient Anti-diabetic Regimen: * Metformin 750mg PO BID * A1c = 14.7 % 11/07/19 The patient is currently receiving: * IV insulin infusion at 3.6units/hr Risk Factors for Insulin Resistance: * Infection: UTI? on IV Rocephin * IVF: NS @ 125cc/hr (transitioned from D5NS) * Diet: NPO - Assessment & Plan Assessment & Plan: ASSESSMENT: * 64 year old male admitted with R sided ab pain, hyperglycemic hyperosmolar syndrome started on insulin drip, possible UTI on IV Rocephin, PMH significant for bladder cancer with chemo in remission since 2017. Overnight pt developed a temperature of 37.9, tachycardia, an increased oxygen requirement and rigors: transferred to ICU for closer monitoring. * Patient with Type 2 diabetes, uncontrolled, on metformin at home. * Oral agents are not recommended for inpatient use d/t drug interactions, changing PO intake, and difficulty titrating for acute hyper/hypoglycemia. ADA recommends re-initiating outpatient oral agents 1-2 days prior to discharge if/when appropriate if they were held on admission. * Will hold oral agents for admission, continue IV insulin infusion, and add basal insulin to overlap for easier transition off of drip. Patient likely needs insulin on discharge with A1c 14.7% and reported compliance with metformin. * CDE consult tomorrow. PLAN FOR INPATIENT GLYCEMIC CONTROL: * Continue IV insulin infusion per moderate stress protocol * Goal Range 140 - 180 mg/dl * In the critical care setting, continuous IV insulin infusion has been shown to be the best method for achieving glycemic targets. * Current rate 3.6units/hr * Holding outpatient oral diabetes medications * Basal insulin * Lantus 25 units SQ x 1 dose now while patient on insulin drip, continued dosing based on drip rates * Bolus insulin * NovoLog per scale ACHS or Q6hrs while NPO * Goal Range: Low 110 mg/dL - High 140 mg/dL * Carb ratio based on insulin drip if diet resumed, patient currently NPO * Please note that the plan above was derived based on current level of insulin resistance and hospital stress. These recommendations are appropriate for inpatient admission only. Plan of care upon discharge will need to be reassessed to avoid potential outpatient hypo/hyperglycemia. Thank you.
[2020-01-12 09:45] LABS: Albumin Level 2.5 gm/dl (3.4-5.0); C Reactive Protein 16.4 mg/dl (0-0.29); Calcium 8.1 mg/dl (8.5-10.1); Creatinine Clr Calc Pharmacy 61.6 ml/min; Est GFR (African American) 58.6; Est GFR (Non-African American) 50.6; Potassium 3.6 mmol/L (3.5-5.1)
[2020-01-12 09:48] LABS: Albumin Globulin Ratio 0.6 (0.9-2); Bilirubin,Total 0.7 mg/dl (0.2-1); Total Protein 6.5 gm/dl (6.4-8.2)
[2020-01-12] MEDS: INSULIN REGULAR 250 UNITS in SODIUM CHLORIDE 0.9% 247.5 ML IV SCH (11:55)
[2020-01-12] MEDS ORDERED: INSULIN GLARGINE SOLOSTAR 100 UNITS/ML 3 ML PEN SC SCH (21:00)
[2020-01-12] MEDS: HEPARIN SOD 5,000 UNIT/0.5 ML VIAL SQ SCH (21:01)
[2020-01-12] MEDS ORDERED: TRAMADOL HCL 50 MG TABLET PO PRN (23:32)
[2020-01-12] MEDS ORDERED: POLYETHYLENE (MIRALAX) 17 GM PACK PO PRN ×2 (23:34→23:36)
[2020-01-13] MEDS ORDERED: HYDROmorphone INJ 1 MG/ML SYRINGE IV STA (00:03)
[2020-01-13] MEDS: ONDANSETRON INJ 2 MG/ML 2 ML VIAL IV PRN ×2 (00:16→11:43)
[2020-01-13] MEDS: SIMETHICONE 80 MG CHEW PO PRN ×2 (00:21→08:00)
[2020-01-13] MEDS: SODIUM CHLORIDE 0.9% 1000ML 1,000 ML IV SCH ×2 (04:16→13:10)
[2020-01-13] MEDS: ACETAMINOPHEN 325 MG TAB PO PRN (05:35)
[2020-01-13 07:05] LABS: Basophils # (auto) 0.06 K/uL (0-0.2); Basophils % (auto) 0.3 %; Hematocrit (blood only) 37.6 % (42-52); Hemoglobin 12.9 g/dL (14.0-18.0); Immature Granulocytes # (auto) 0.39 K/uL (0.00-0.02); Immature Granulocytes % (auto) 2.2 %; Lymphocytes # (auto) 0.64 K/uL (1.2-3.4); Lymphocytes % (auto) 3.6 %; Mean Corpuscular Hemoglobin 31.3 pg (25-34); Mean Corpuscular Hgb Conc 34.3 g/dL (32-36); Mean Corpuscular Volume 91.3 fL (80-100); Mean Platelet Volume 10.7 fL (7.4-10.4); Monocytes # (auto) 1.88 K/uL (0.11-0.59); Monocytes % (auto) 10.7 %; Neutrophils # (auto) 14.66 K/uL (1.4-6.5); Neutrophils % (auto) 83.2 %; Platelet Count 100 K/uL (130-400); Platelet Estimate Decreased (Normal); RDW Coefficient of Variation 13.7 % (11.5-14.5); RDW Standard Deviation 45.8 fL (36.4-46.3); Red Blood Count 4.12 M/uL (4.7-6.1); White Blood Count 17.63 K/uL (4.8-10.8)
[2020-01-13] MEDS: HEPARIN SOD 5,000 UNIT/0.5 ML VIAL SQ SCH (08:00)
[2020-01-13] MEDS: ATORVASTATIN 40 MG TAB PO SCH (08:01)
[2020-01-13] MEDS: INSULIN ASPART 100 UNITS/ML 3 ML PEN SC SCH ×4 (08:27→20:39)
[2020-01-13] MEDS: DICLOFENAC SOD 1% GEL 100 GM TUBE EXT SCH ×4 (08:30→20:42)
[2020-01-13 08:46] LABS: BUN Creatinine Ratio 13.2 (10-20); Calcium 8.2 mg/dl (8.5-10.1); Creatinine Clr Calc Pharmacy 65.3 ml/min; Est GFR (African American) 62.3; Est GFR (Non-African American) 53.7
[2020-01-13] MEDS ORDERED: ASPIRIN 81 MG ECTAB PO SCH (09:00)
[2020-01-13] MEDS ORDERED: INSULIN GLARGINE SOLOSTAR 100 UNITS/ML 3 ML PEN SC SCH (09:00)
[2020-01-13] MEDS: cefTRIAXone SODIUM 2,000 MG in DEXTROSE 5% 50 ML IV SCH (10:28)
--- NOTE | 2020-01-13 10:47 | Family Medicine Progress Note ---
Date of Service January 13, 2020 Assessment & Plan (1) Acute UTI (urinary tract infection): Mr. Anna is a 64 yo M PMHx DM2 with Hgb A1c 14.7, bladder cancer s/p prostatectomy, cystectomy, and chemotherapy with remission in [address], CAD s/p PCI admitted for R flank/abdominal pain and HHS and found to have a UTI with culture positive for pansensitive Klebsiella and Alpha Strep, not Enterococcus. - UA on admission + for nitrites, 10-30 WBCS, 2+ bacteria although does have ileal conduit - UA concerning for UTI and UCx grew alpha Strep (non-Enterococcus) and pansensitive Klebsiella. Continuing Ceftriaxone at this time, currently on day 3. - Pt relays that about 3-4 months ago he had a urinary tract infection at that time with similar symptoms of hematuria and R sided abdominal/flank pain. - WBC mildly increased from 10 on admission to 12; now to 17 today; pt is im proving clinically and pt's urinary infection is sensitive to ceftriaxone. Will continue to monitor with CBC and clinical findings. - afebrile overnight with no subjective fevers or chills. - Given history of previous similar symptoms in a male with UA and UCx findings suggestive of UTI in a surgically altered urinary tract, will continue treatment. - Pt's initial presentation of chills, as well as his right sided pain and hematuria can all be attributed to a UTI. (2) Abdominal pain: - Difficult to get a clear history; however today patient localizes with one finger his pain to his R flank and has R sided CVA tenderness. - Reports also that after passing a significant amount of gas his abdominal pain as previously described has dissipated. - Lipase normal. ALT/AST normal. Alk Phos 156 on admission, down to 118. Hep C screen neg. - CTAP showed normal pancreas, gallbladder and liver; diverticulosis without diverticulitis, and moderate constipation in ascending colon. - previous notes from Urology suggest a possible history of renal calculi however this was not reported by radiology as a significant finding. - Urinary workup as below. - Scheduled Miralax and Metamucil per patient request, especially given he has - Diclofenac gel ordered prn in the event it is MSK - Tylenol and reduce dose of Dilaudid to 0.5mg q4h PRN severe pain given hypotension with higher dose (3) Hyperglycemia: HHS in the setting of DM2 not well-controlled on metformin: - BG 559 on admission; throughout admission insulin has been titrated and fluids given in bolus 2.5L and at rate of 125mL/hr; pt was transitioned successfully from insulin drip to qAC and qHS insulins. - mildly elevated anion gap (15); beta-hydroxybutyric acid elevated to 23 on admission. - Hgb A1c found to be 14.7 this admission. - precipitating event: multifactorial, both active infection of UTI as well as likely poor regimen compliance. - Insulin management per pharmacy. - Pt takes metformin 750 BID at home; will likely require Levemir on discharge to achieve good glucose control. - Pt has spoken with patient educator and is amenable to this. Was also educated on proper DM2 diet moving forward. - Consider MICHAEL inhibitor for renal protection moving forward. (4) Diabetes mellitus: (5) Elevated serum creatinine: - Will d/c IVF as patient's creatinine has returned to baseline and blood glucose improved. - Never had SANTHOSH this admission. - Continue to monitor with BMP AM labs. (6) Leukocytosis: - WBC further elevated today to 17 despite antibiotic management of suspected UTI. - etiology: infection vs. physiologic stress response. - continue to monitor. (7) Gross hematuria: - blood in urostomy bag for second day, likely secondary to acute UTI. - Has a history of intermittent gross hematuria noted on last Urology follow up. Have placed Urology consult, appreciate recommendations. - Hgb slight decrease today to 12.9, could be dilutional element paired with gross hematuria. - Hold asa and Heparin at this time. - f/u CBC AM. (8) Constipation: - On CTAP and considered as possible cause of abdominal pain. - Abdominal pain has improved with Miralax. - Continue Miralax and Metamucil. (9) Cyst of left kidney: - 21 cm cyst visualized on CTAP, increased from 11cm on previous scan. - radiology notes increased density of lesion and suggests consideration of hemorrhagic vs. infectious transformation. - Urology consult placed given both this and UTI in surgically altered urinary tract. Appreciate recommendations. (10) CAD (coronary artery disease): - patient with history of PCI (stent placement) > 1 year ago. - continue high-intensity statin. - holding daily baby ASA in setting of hematuria. (11) Diverticulosis: - Seen on CTAP; no symptoms at this time. - no active management. (12) Degenerative disc disease: - Pt self reports history of this. - CTAP showed: "epidural gas in the lumbar spine evident both ventrally and dorsally. It is somewhat atypical to see gas dorsally though this may still be related to degenerative vacuum disc phenomenon with spread of gas" - Pt reports a history of lumbar injections about 6 years ago but this seems atypical to create imaging findings after that much time. Pt without neurological symptoms, weakness, tingling, pain of spinous processes. - Have placed Ortho Spine consult, appreciate recommendations. Dispo: PCU Diet: Diabetic/Heart Healthy Code: Full DVT ppx: held due to gross hematuria Admission and Anticipated Discharge Date Admission Date: January 11, 2020 Supervising Physician Co-Signing Physician Notes I personally examined the patient and verified all smiley points of history and exam, discussed case, and agree with decision making with Dr. Gilliland with the following additions/exceptions: Pt feeling better, still with right sided flank pain requiring dilaudid. Reports tramadol and morphine make him feel sick. Vitals reviewed, mild hypotension this MA, some hypoxia overnight Overweight, NAD, pleasant, AAOx3 Anicteric sclerae RRR no mgr CTAB no wcr Abd +urostomy bag with [place] red urine , +BS soft NT ND, +Right CVA tenderness Ext no edema 64 yo male here with ileal conduit and UTI, right flank pain.Improving Continue Rocephin, consult Urology Consult Ortho Spine regarding gas bubbles in spine on imaging Hold heparin for hematuria Subjective Patient with one episode of R abdominal/flank pain overnight and given 1mg Dilaudid with relief. 3 hours following administration had a blood pressure recording 83/54, was not symptomatic of low BP at that time. Reports history of "low blood pressure in general", is feeling much better overall this AM however says that he gets these "back spasms that the Dilaudid helped". States that abdominal and flank pain is his warning sign of his UTIs, one of which he states he had about three months ago and at that time he had blood from his urostomy tube. No shortness of breath this morning, some intermittent cough with clear sputum but no orthopnea. No nausea or vomiting, no fevers or chills. No chest pain. Yesterday morning had an episode of hypoxia and was started on 2LNC, CXR at that time negative for pneumonia and this morning was taken off of oxygen with normal saturation. Review of Systems Constitutional: no fever and no chills Respiratory: + cough; no dyspnea and no wheezing Cardiovascular: no chest pain, no palpitations and no edema Gastrointestinal: no abdominal pain, no nausea and no vomiting Genitourinary: + hematuria (red urine in urostomy bag) and + flank pain (R sided) Physical Exam Constitutional: WD/WN, vitals as above Eyes: + anicteric sclerae ENMT: external ear and nose normal, oropharynx normal Respiratory: normal respiratory effort and + cough; no respiratory distress and does not use accessory muscles Auscultation: + wheezes (intermittent, bilateral, expiratory); no diminished lung sounds, no crackles and no rhonchi Cardiovascular: RRR, no murmur, no edema Gastrointestinal (Abdomen): Inspection/Auscultation: + abdomen distended and normal bowel sounds Percussion/Palpation: abdomen soft; abdomen nontender and no guarding Skin: no rashes, warm and dry Psychiatric: A+Ox3, euthymic affect Genitourinary: urostomy bag with dark red drainage Results & Data ([facility]) Vital Signs (Past 12 Hours) Vital Signs Temp Pulse Pulse Resp BP Pulse Ox 01/13/20 07:25 36.6 C 96 H 19 111/75 95 01/13/20 06:00 99 H 109/75 01/13/20 03:18 36.3 C L 101 H 20 83/54 L 93 01/13/20 01:55 112 H 01/12/20 23:06 37.1 C 108 H 20 106/71 91 Resident Activity Tracking Resident Involvement: Resident Care Provided Care Provided: Adult [facility] Medicine (1) Abdominal pain Abdominal location: periumbilical Qualified Code(s): R10.33 - Periumbilical pain
--- NOTE | 2020-01-13 11:39 | Pharmacy Report ---
Pharmacy Glycemic Short Note 2 - Date of Service January 13, 2020 - Glycemic Short BSG Results (Last 24 hours): OUTPATIENT ANTIDIABETIC REGIMEN: * Metformin 750mg PO BID * A1c = 14.7 % 11/07/19 ASSESSMENT: * Insulin drip rates continued to fall throughout the evening with addition of Lantus yesterday * Rate of 2.1 unit/hr and BSG of 115 mg/dL this morning - ordered 50 units of Lantus and discontinued the drip * Continues on ceftriaxone daily for UTI PLAN FOR INPATIENT GLYCEMIC CONTROL: * Hold outpatient oral diabetes medications * Basal insulin * Lantus 50 units SC x 1 this morning * Will plan to switch to Levemir moving forward in order to facilitate discharge * Levemir scale for this evening (see EHR for details) * Bolus insulin - weight-based stress of 3 * NovoLog per scale ACHS or Q6hrs while NPO * Goal Range: Low 110 mg/dL - High 140 mg/dL * Correction Factor: 15 mg/dL/unit * Nutritional / Prandial insulin per carb ratio of 1 unit per 6 grams CHO consumed PLAN FOR DISCHARGE: * A1c of 14.7% demonstrates very poor glycemic control as an outpatient * Patient seen by certified lactation counselor - patient agreeable to starting o nce daily basal insulin (to start) * Levemir is covered by patient's insurance * Insulin needs TBD * Will require prompt outpatient follow-up for continued management of diabetes
[2020-01-13] MEDS ORDERED: HYDROmorphone INJ 0.5 MG/0.5 ML SYR IV STA (12:04)
[2020-01-13] MEDS: PSYLLIUM 58.6% POWDER PACKET PO SCH (13:47)
[2020-01-13] MEDS: HYDROmorphone INJ 0.5 MG/0.5 ML SYR IV PRN ×2 (16:35→20:44)
[2020-01-13] MEDS ORDERED: INSULIN DETEMIR FLEXPEN/FLEX TOUCH 100 UNITS/ML 3ML SC SCH (21:00)
[2020-01-14] MEDS: HYDROmorphone INJ 0.5 MG/0.5 ML SYR IV PRN ×6 (01:54→22:35)
[2020-01-14] MEDS ORDERED: INSULIN ASPART 100 UNITS/ML 3 ML PEN SC SCH (02:00)
[2020-01-14 06:34] LABS: Basophils # (auto) 0.01 K/uL (0-0.2); Basophils % (auto) 0.1 %; Eosinophils # (auto) 0.03 K/uL (0-0.5); Eosinophils % (auto) 0.2 %; Hematocrit (blood only) 37.7 % (42-52); Hemoglobin 12.8 g/dL (14.0-18.0); Immature Granulocytes # (auto) 0.18 K/uL (0.00-0.02); Immature Granulocytes % (auto) 1.2 %; Lymphocytes # (auto) 0.94 K/uL (1.2-3.4); Lymphocytes % (auto) 6.2 %; Mean Corpuscular Hemoglobin 30.9 pg (25-34); Mean Corpuscular Volume 91.1 fL (80-100); Mean Platelet Volume 10.7 fL (7.4-10.4); Monocytes # (auto) 1.21 K/uL (0.11-0.59); Neutrophils % (auto) 84.3 %; Platelet Count 126 K/uL (130-400); RDW Coefficient of Variation 13.9 % (11.5-14.5); RDW Standard Deviation 47.1 fL (36.4-46.3); Red Blood Count 4.14 M/uL (4.7-6.1); White Blood Count 15.07 K/uL (4.8-10.8)
[2020-01-14 07:03] LABS: BUN Creatinine Ratio 14.6 (10-20); Calcium 8.1 mg/dl (8.5-10.1); Creatinine Clr Calc Pharmacy 72.7 ml/min; Est GFR (African American) 70.3; Est GFR (Non-African American) 60.6; Magnesium 1.8 mg/dl (1.8-2.4); Phosphorus 2.3 mg/dl (2.5-4.9); Potassium 3.7 mmol/L (3.5-5.1)
--- NOTE | 2020-01-14 08:00 | Urology Consultation ---
Date of Consultation January 14, 2020 Assessment & Plan (1) Acute UTI (urinary tract infection): History of bladder cancer status post radical cystoprostatectomy with ileal conduit I suspect that his symptoms are largely driven by infectionthis likely is a secondary effect of his poorly controlled diabetes and I have stressed to him the need to improve his overall condition to prevent recurrent episodes of similar nature There is a question about slight enlargement of the left renal cystthis does not appear consistent with an abscess at present and he is not clinically tender over that area. That said, with the size of this lesion, antibiotics would be our first choice management regardless and I think he needs to maintain antibiotics for the next 10 to 14 days minimum He received ceftriaxone yesterday which would be a reasonable choice to continue for the time being given his persistent leukocytosis He was afebrile overnight History of Present Illness Attending Physician: Mala Justin MD History of Present Illness 64-year-old gentleman status post cystectomy with ileal conduit who returns with hematuria, questionable UTI, right flank pain CT reviewed and discussedhe appears to have slight enlargement of a left renal cyststill approximately 2 cm in max diameter No significant hydronephrosis bilaterally, several other renal cyst which all appear stable and unremarkable. Minimal distention of his ileal conduit, no hernia, no bowel obstruction, no adenopathy. Some air around the spine. He reports that he has been feeling ill for several days He has not taken good care of himself by his own admissionhis hemoglobin A1c recently was 15 and then 13 He reports he has been following a poor diet at home He suspected he had an infection last week and had a culture which showed Klebsiella on 01/11/2020 He believes this progressed from then until now He did not have fevers overnight reports that he feels better today than he did yesterday Had a single dose of ceftriaxone yesterday Allergies Allergy/AdvReac Type Severity Reaction Status Date / Time No Known Allergies Allergy Unverified 01/11/20 10:04 Home Medications Home Medications Medication Instructions Recorded Confirmed Type atorvastatin 80 mg tablet 80 mg PO DAILY #90 tab 06/07/19 01/11/20 Rx gabapentin 600 mg tablet 600 mg PO TID #270 tab 10/23/19 01/11/20 Rx Lactobacillus 1 cap PO DAILY 12/18/19 01/11/20 History acidophilus-Bifidobac.animalis 31 billion cell capsule albuterol sulfate 90 mcg/actuation 2 puff INH Q4H PRN 12/18/19 01/11/20 History aerosol inhaler aspirin 81 mg tablet,delayed 81 mg PO DAILY 12/18/19 01/11/20 History release metformin 750 mg tablet,extended 750 mg PO BID #60 tab 12/25/19 01/11/20 Rx release 24 hr Patient History Medical History CAD (coronary artery disease) Diabetes mellitus (Chronic) High cholesterol (Inactive) Hypertension (Inactive) Malignant tumor of urinary bladder (Inactive) Surgical History History of ankle surgery History of coronary angioplasty S/P colonoscopy S/P tooth extraction S/P ureteral stent placement Family History Mother Colorectal cancer Heart disease Diabetes Cardiac disorder Father Hypertension Sister Breast cancer Denies family history of Ovarian cancer Prostate cancer Myocardial infarction Social History Preferred Language: Kosovan Communication Ability: Effective Jacquard Loom Heddles Tier Required: No Beliefs That Will Affect Care: None marital status: Current Living Situation: Spouse current occupational status: retired Feels Safe at Home: Yes Safety Concerns: Feels Safe At This Time Smoking Status: Former smoker Hx Alcohol Use: No Hx Substance Use: No Review of Systems Constitutional: + body aches; no fever, no chills and no fatigue Eyes: no worsening vision Ear, Nose, Mouth, Throat: no facial pain and no pain with swallowing Respiratory: no cough and no dyspnea Cardiovascular: no chest pain and no palpitations Gastrointestinal: no abdominal pain, no nausea and no vomiting Musculoskeletal: + back pain Integumentary: no rash and no urticaria Neurologic: no gait abnormality and no unsteadiness Psychiatric: no behavioral changes and no depression Endocrine: no fatigue Physical Exam Constitutional: well developed, well nourished and + obese; no acute distress and not ill appearing Eyes: no eyelid abnormality ENMT: Ears: no hearing impairment Nose: no external nose abnormality Neck: normal visual inspection Respiratory: normal respiratory effort; no respiratory distress and no retractions Cardiovascular: Rate/Rhythm: regular rate and regular rhythm Gastrointestinal (Abdomen): Inspection/Auscultation: abdomen normal to inspection; abdomen not distended and no abdominal wall ecchymosis Percussion/Palpation: abdomen soft; abdomen nontender and no guarding Healthy-appearing stoma with some blood-tinged urine No significant CVA tenderness on the right or left Mild paraspinal tenderness on the right No point tenderness over the spine itself Musculoskeletal: Head/Neck/Chest: normocephalic and head atraumatic Skin: normal turgor Neurologic: awake; not confused and not obtunded Psychiatric: Orientation: alert and oriented x 3 Genitourinary: no CVA tenderness Results & Data Vital Signs (Past 12 Hours) Vital Signs Temp Pulse Pulse Pulse Resp BP Pulse Ox 01/14/20 04:23 37 C 84 20 89/56 L 96 01/14/20 00:00 102 H 01/13/20 23:29 37.6 C H 90 18 115/70 95 01/13/20 21:15 102 H Pulse Ox 01/14/20 04:23 01/14/20 00:00 01/13/20 23:29 01/13/20 21:15 90 PG Care Time/CCT Total # of Minutes Spent Total Time Spent with Patient: Total time spent is greater than 50% in coordination of care (as documented) at patient's floor/unit and/or counseling patient: Coding Level of Care Code 90301 Inpt Consult Level 4 Diagnoses Acute UTI (urinary tract infection) N39.0
--- NOTE | 2020-01-14 08:03 | Billing Data ---
Date of Service January 14, 2020 Coding Level of Care Code 53988 Subseq Hosp Care Lvl 3
[2020-01-14] MEDS: INSULIN ASPART 100 UNITS/ML 3 ML PEN SC SCH ×4 (08:06→21:41)
[2020-01-14] MEDS: ATORVASTATIN 40 MG TAB PO SCH (08:11)
[2020-01-14] MEDS: PSYLLIUM 58.6% POWDER PACKET PO SCH (08:12)
[2020-01-14] MEDS: DICLOFENAC SOD 1% GEL 100 GM TUBE EXT SCH ×4 (08:12→21:32)
--- NOTE | 2020-01-14 08:56 | Pharmacy Report ---
Pharmacy Glycemic Short Note 2 - Date of Service January 14, 2020 - Glycemic Short BSG Results (Last 24 hours): OUTPATIENT ANTIDIABETIC REGIMEN: * Metformin 750mg PO BID * A1c = 14.7 % 11/07/19 ASSESSMENT: * Insulin drip transitioned off yesterday morning - 50 units of Lantus given at that time and was insufficient as patient's BSGs ranged 195-236 mg/dL the rest of the day. * Will increase basal today - switching to Levemir to facilitate discharge (patient agreeable to once daily Levemir) * Tighten CF and insulin:carb ratio this morning PLAN FOR INPATIENT GLYCEMIC CONTROL: * Hold outpatient oral diabetes medications * Basal insulin - increase * Levemir 70 units SC x 1 this morning * Bolus insulin - tighten * NovoLog per scale ACHS or Q6hrs while NPO * Goal Range: Low 110 mg/dL - High 140 mg/dL * Correction Factor: 10 mg/dL/unit * Nutritional / Prandial insulin per carb ratio of 1 unit per 4 grams CHO consumed PLAN FOR DISCHARGE: * A1c of 14.7% demonstrates very poor glycemic control as an outpatient * Patient seen by certified home health aide - patient agreeable to starting once daily basal insulin (to start) * Levemir is covered by patient's insurance * Insulin needs TBD * Will require prompt outpatient follow-up for continued management of diabetes * Support Patient Self-Management * Healthy Lifestyle (diet, exercise, and smoking cessation) * Disease self-management (SMBG) * Prevention of complications (BP, Lipid goals, Immunizations) * Consider outpatient Diabetes Self-Management Education & Support * Continue metformin
--- NOTE | 2020-01-14 08:56 | Billing Data ---
Date of Service January 13, 2020 Coding Level of Care Code 75512 Subseq Hosp Care Lvl 3
[2020-01-14] MEDS ORDERED: INSULIN DETEMIR FLEXPEN/FLEX TOUCH 100 UNITS/ML 3ML SC SCH (09:00)
--- NOTE | 2020-01-14 09:34 | Family Medicine Progress Note ---
Date of Service January 14, 2020 Assessment & Plan (1) Acute UTI (urinary tract infection): Mr. Anna is a 64 yo M PMHx DM2 with Hgb A1c 14.7, bladder cancer s/p prostatectomy, cystectomy, and chemotherapy with remission in [address], CAD s/p PCI admitted for R flank/abdominal pain and HHS and found to have a UTI with culture positive for pansensitive Klebsiella and Alpha Strep. Urostomy associated UTI without sepsis: - UA on admission + for nitrites, 10-30 WBCS, 2+ bacteria. - UA concerning for UTI and UCx grew alpha Strep (non-Enterococcus) and pansensitive Klebsiella. Continuing Ceftriaxone at this time, currently on day 4. - Pt relays that about 3-4 months ago he had a urinary tract infection at that time with similar symptoms of hematuria and R sided abdominal/flank pain. - WBC downtrending today from yesterday; pt is improving clinically and pt's urinary infection is sensitive to ceftriaxone. Will continue to monitor with CBC and clinical findings. - Afebrile overnight with no subjective fevers or chills. - Given history of previous similar symptoms in a male with UA and UCx findings suggestive of UTI in a surgically altered urinary tract, will continue treatment. - Pt's initial presentation of chills, as well as his right sided pain and hematuria can all be attributed to a UTI. - Urology recommendation is to continue Abx therapy for another 10-14 days. Not concerned at this time for abscess regarding L renal cyst. - Flank pain could be secondary to UTI, continues to improve so if UTI is causative will expect this to continue to improve. (2) Degenerative disc disease: - Pt self reports history of this. - CTAP showed: "epidural gas in the lumbar spine evident both ventrally and dorsally. It is somewhat atypical to see gas dorsally though this may still be related to degenerative vacuum disc phenomenon with spread of gas" - Pt reports a history of lumbar injections about 6 years ago but this seems atypical to create imaging findings after that much time. Pt without neurological symptoms, weakness, tingling, pain of spinous processes. - MRI spine showed "several lumbar levels with narrowing of the spinal canal along with multilevel degenerative change. Severe spinal canal stenosis at L3-4 and multilevel neural foraminal narrowing most severe at L3-4. No convincing evidence of cauda equina impingement. Paraspinal muscle edema on the right is most likely related to muscle strain. Inflammatory edema is considered unlikely." -Possible that his right flank pain is associated with paraspinal hypertonicity and inflammation rather than UTI. Diclofenac gel ordered prn for flank pain as differential includes MSK pain. Pending Ortho Spine consult. (3) Abdominal pain: - Pt continues to pass a significant amount of gas and with this his abdominal pain as previously described has decreased substantially, however still without BM. - Lipase normal. ALT/AST normal. Alk Phos 156 on admission, down to 118. Hep C screen neg. - CTAP showed normal pancreas, gallbladder and liver; diverticulosis without diverticulitis, and moderate constipation in ascending colon. - previous notes from Urology suggest a possible history of renal calculi however this was not reported by radiology as a significant finding. - Urinary workup as described. - Scheduled Miralax and Metamucil per patient request, Senna/Docusate added as well. - Tylenol q8h scheduled, and Dilaudid 0.5mg q4h PRN severe pain. Could consider shortening interval between Dilaudid doses if continued pain despite scheduling Tylenol; will hold off for now given changing Tylenol to scheduled and pt's constipation. (4) Hyperglycemia: HHS in the setting of DM2 not well-controlled on metformin: - BG 559 on admission; throughout admission insulin has been titrated and fluids given in bolus 2.5L and at rate of 125mL/hr; pt was transitioned successfully from insulin drip to qAC and qHS insulins. - mildly elevated anion gap (15); beta-hydroxybutyric acid elevated to 23 on admission. - Hgb A1c found to be 14.7 this admission. - precipitating event: multifactorial, both active infection of UTI as well as likely poor regimen compliance. - Insulin management per pharmacy. Tightened carb control today and increased Levemir from 50->70 - Pt takes metformin 750 BID at home; will require Levemir on discharge to a chieve good glucose control. - Pt has spoken with inclusion paraeducator and is amenable to this. Was also educated on proper DM2 diet moving forward. - Consider MICHAEL inhibitor for renal protection moving forward. Intermittent hypotension while on opiate medications is a barrier to this. (5) Diabetes mellitus: - Uncontrolled disease - HbA1c from 11/07/19 at 14.7, well above goal - Patient currently only on mono-therapy with metformin 750mg, BID - Patient insists on medication compliance; elevated sugars likely related to diet as well as active infection - clinical systems educator consult placed and educated on proper DM2 diet - May require insulin therapy in the short-term on discharge to bring A1c to goal and close follow up with PCP - patient already on high intensity statin; consider adding MICHAEL inhibitor for renal protection as above. (6) Gross hematuria: - blood in urostomy bag for third day, likely secondary to acute UTI, improving. - Has a history of intermittent gross hematuria noted on last Urology follow up. Have placed Urology consult, noted mild hematuria. - Hgb stable today. - Hold Heparin at this time. - f/u CBC AM. (7) Leukocytosis: - WBC improving today, likely 2/2 antibiotic management of UTI. - etiology: infection vs. physiologic stress response. - continue to monitor. (8) Elevated serum creatinine: - Pt currently hydrating orally, d/c'ed fluids yesterday afternoon. - Never had SANTHOSH this admission. - Continue to monitor with BMP AM labs. (9) Constipation: - On CTAP and considered as possible cause of abdominal pain. - Abdominal pain has improved with Miralax and Metamucil. - Given opiate use in hospital and continued constipation have added Senna/Docusate to his regimen. (10) Cyst of left kidney: - 21 cm cyst visualized on CTAP, increased from 11cm on previous scan. - radiology notes increased density of lesion and suggests consideration of hemorrhagic vs. infectious transformation. - Urology consult placed given both this and UTI in surgically altered urinary tract. Recommendations as above, continue Abx in the event that the cyst is infectious. (11) Thrombocytopenia: - Patient with chronic thrombocytopenia, worsened this admission likely 2/2 physiologic stress response. - Pt's plts improving today with further improvement in his UTI. - Continue to monitor. (12) Hypophosphatemia: - Pt's Phosphorus today 2.3; will replete with NeutraPhos 1 tab QID. - Repeat Phos tomorrow AM labs. (13) CAD (coronary artery disease): - patient with history of PCI (stent placement) > 1 year ago. - continue high-intensity statin. - will resume aspirin for CAD protective qualities. Continue to hold heparin given hematuria. (14) Obstructive sleep apnea: - Resume CPAP qHS. (15) Diverticulosis: - Seen on CTAP; no symptoms at this time. - no active management. Dispo: Med/Surg, d/c telemetry as pt's electrolytes are stable and he is no longer in HHS Diet: Diabetic/Heart Healthy Code: Full DVT ppx: held due to gross hematuria; SCDs Admission and Anticipated Discharge Date Admission Date: January 13, 2020 Supervising Physician Co-Signing Physician Notes I personally examined the patient and verified all smiley points of history and exam, discussed case, and agree with decision making with Dr. Gilliland with the following additions/exceptions: He is overall feeling much improved today, however laying in the MRI scanner did exacerbate his right sided lower back pain. He is still having some mild right- sided lower abdominal pain but this seems to be improved with passing gas and he is feeling like he is going to have a bowel movement soon as it has been 4 days since the last one. The blood in his urine is starting to clear up. He is having an improved appetite today as well. He does report chronic right lower back pain as well as radiculopathy in left greater than right lower extremities Vitals reviewed, mild hypotension again this morning, had hypoxia on overnight sleep study thank you thank you Overweight, NAD, pleasant, AAOx3 Anicteric sclerae RRR no mgr CTAB no wcr Abd +urostomy bag with pink-tinged urine , +BS soft NT ND, +Right CVA tenderness Ext no edema Neuro-4/5 strength throughout right lower extremity with 3/5 strength in right great toe dorsiflexion, otherwise 5/5 strength throughout, sensation intact to light touch throughout lower extremities bilaterally, DTRs 2+ in patellar and 1+ Achilles bilaterally, positive straight leg raise bilaterally 64 yo male here with ileal conduit and UTI, right flank pain.Improving Right flank pain may actually be musculoskeletal given findings on MRI versus from UTI Overall improving Continue Rocephin and will convert to Keflex when improved Consult Urology appreciated Consult Ortho Spine regarding gas bubbles in spine on imaging-no surgery indicated Continue to hold heparin for hematuria but okay to restart aspirin given severe CAD history PT/OT consulted for tomorrow and hopeful for discharge in the next 1 to 2 days Subjective Pt without acute events overnight. Was called recently by template reproduction technician regarding a lumbar spine MRI for "gas bubbles in his spine". Does have a history of low back pain and some radiation down his legs. Reports that he intermittently gets weakness. Has a home CPAP but has not been using CPAP here. No SOB, CP, nausea, vomiting, fevers, chills. Feels that his abdominal pain con tinues to improve though he still has not had a BM. Continues to have gas. Still localizes pain to R flank but qualifies it as more musculoskeletal than urinary. Still with hematuria but states that it is "letting up some". Feels that he would like some help with strengthening and walking around. Review of Systems Constitutional: no fever and no chills Respiratory: no dyspnea and no wheezing Cardiovascular: no chest pain, no palpitations and no edema Gastrointestinal: no abdominal pain, no nausea and no vomiting Genitourinary: + hematuria (red urine in urostomy bag) and + flank pain (R sided) Physical Exam Constitutional: WD/WN, vitals as above + obese ENMT: external ear and nose normal, oropharynx normal Neck: normal visual inspection Respiratory: normal respiratory effort, lungs clear to auscultation Cardiovascular: RRR, no murmur, no edema Gastrointestinal (Abdomen): normal bowel sounds, soft, nontender, no hepatosplenomegaly Inspection/Auscultation: no abdominal wall ecchymosis Percussion/Palpation: abdomen soft Musculoskeletal: paraspinal muscle tenderness R>L Skin: no rashes, warm and dry Neurologic: patellar DTR's 2+ bilat, sensation intact and PERRL, EOMI, accommodation nl, no face palsy, no dysarthria Back pain with bilateral straight leg raise testing. Strength 5/5 UE, 5/5 LLE, 3/5 RLE with big toe raise, lifting leg off of bed Psychiatric: A+Ox3, euthymic affect Genitourinary: some pink-red tinged urine from urostomy site, stoma intact Results & Data ([facility]) Vital Signs (Past 12 Hours) Vital Signs Temp Pulse Pulse Resp BP Pulse Ox 01/14/20 07:55 37.1 C 75 18 153/79 H 95 01/14/20 04:23 37 C 84 20 89/56 L 96 01/14/20 00:00 102 H 01/13/20 23:29 37.6 C H 90 18 115/70 95 Resident Activity Tracking Resident Involvement: Resident Care Provided Care Provided: Adult Hospital Medicine (1) Diabetes mellitus Diabetes mellitus complication detail: without coma Diabetes mellitus complication status: with hyperosmolarity Diabetes mellitus mcfp insulin use: without mcfp use Diabetes mellitus type: type 2 Qualified Code(s): E11.00 - Type 2 diabetes mellitus with hyperosmolarity without nonketotic hyperglycemic-hyperosmolar coma ([facility]) (2) CAD (coronary artery disease) Associated angina: without angina Coronary Disease-Associated Artery/Lesion type: unspecified vessel or lesion type [place] vs. transplanted heart: [place] heart Qualified Code(s): I25.10 - Atherosclerotic heart disease of [place] coronary artery without angina pectoris (3) Leukocytosis Leukocytosis type: unspecified Qualified Code(s): D72.829 - Elevated white blood cell count, unspecified (4) Degenerative disc disease Spinal region: lumbar Qualified Code(s): M51.36 - Other intervertebral disc degeneration, lumbar region (5) Abdominal pain Abdominal location: periumbilical Qualified Code(s): R10.33 - Periumbilical pain (6) Constipation Constipation type: unspecified constipation type Qualified Code(s): K59.00 - Constipation, unspecified
[2020-01-14] MEDS: cefTRIAXone SODIUM 2,000 MG in DEXTROSE 5% 50 ML IV SCH (09:47)
[2020-01-14] MEDS ORDERED: Nursing to Pharmacy Communication ONE (12:22)
--- NOTE | 2020-01-14 13:35 | Magnetic Resonance Report ---
MR lumbar spine wo con CLINICAL HISTORY: 64 years-old Male presenting with chronic low back pain radiating into both legs wi th bilateral lower extremity numbness and weakness, CT with epidural gas, history of epidural injecti ons but none in the last 8 years. TECHNIQUE: Multisequence, multiplanar MR imaging of the lumbar spine was performed without the use of intravenous contrast. Due to patient discomfort, the examination was not completed in its entirety. Fat-suppressed sagittal fluid sensitive sequence was not acquired. This decreases diagnostic sensitiv ity the exam to a mild to moderate degree. IV contrast: None. COMPARISON: CT from 01/11/2020. FINDINGS: Localizer images: Unremarkable. The spinal canal is narrow on a developmental basis. Mild straightening of normal lumbar lordosis. Ve rtebral bodies maintain normal height, alignment, and bone marrow signal intensity with the exception of a benign hemangioma at L3. Diffuse intervertebral disc desiccation with varying degrees of height loss, overall mild and greatest at L2-3. Annular fissure may be present anteriorly and posteriorly a t L3-4. A level by level analysis is further given below: L1-2: Minimal disc bulge. No significant spinal canal narrowing. Minimal bilateral neural foraminal n arrowing. L2-3: Disc bulge mildly effaces the ventral thecal sac and left lateral recess. Mild facet arthropath y. Mild bilateral neural foraminal narrowing. L3-4: Mild disc bulging combination with the congenitally narrow spinal canal results in ventral and dorsal effacement of the thecal sac and trace residual CSF. Moderate bilateral neural foraminal narro wing, right greater than left. Abutment of the bilateral exiting nerve roots may be present. Notable annular fissures at the level of the neural foramina. Superimposed disc protrusion at the level of th e far lateral right neural foramen measuring 12 x 5 mm (series 7 image 13) L4-5: Disc bulge with moderate effacement of the ventral thecal sac and lateral recesses. Mild facet arthropathy. Mild to moderate bilateral neural foraminal narrowing. Some CSF is maintained within the thecal sac. L5-S1: No significant spinal canal or neural foraminal narrowing. Spinal cord terminates in good position at the inferior endplate of T11. Cauda equina normal in morph ology apart from crowding as mentioned above. No evidence of a grossly buckled morphology of the caud a equina. Paraspinal muscle edema in the right psoas muscle extending from L3 to L5. No gross evidenc e of an epidural collection. Flow-voids within the vasculature preserved. Remainder the visualized so ft tissues within normal limits. IMPRESSION: Due to patient discomfort, the examination was not completed in its entirety. Fat-suppressed sagittal fluid sensitive sequence was not acquired. This decreases diagnostic sensitivity the exam to a mild to moderate degree. 1. Congenitally narrow spinal canal along with multilevel degenerative change. This results in moder ate to severe spinal canal stenosis at L3-4 and multilevel neural foraminal narrowing most severe at L3-4. No convincing evidence of cauda equina impingement. 2. Paraspinal muscle edema on the right is most likely related to muscle strain. Inflammatory edema is considered unlikely. ACT 112: Negative or not required by law. Electronically signed by: Benton Recio M.D. 01/14/2020 1:34 PM
[2020-01-14] MEDS ORDERED: ACETAMINOPHEN 325 MG TAB PO SCH (14:00)
[2020-01-14] MEDS ORDERED: DOCUSATE SODIUM/SENNA 50/8.6MG TAB PO ONE (15:45)
[2020-01-14] MEDS: POT PHOSPHATE MONOBASIC W/ SOD TAB PO SCH ×2 (16:54→21:32)
--- NOTE | 2020-01-14 19:22 | Billing Data ---
Date of Service January 14, 2020 Coding Level of Care Code 47974 Subseq Hosp Care Lvl 3
[2020-01-14] MEDS: ACETAMINOPHEN 325 MG TAB PO SCH (21:31)
[2020-01-15] MEDS: HYDROmorphone INJ 0.5 MG/0.5 ML SYR IV PRN ×5 (02:59→21:04)
[2020-01-15] MEDS: ACETAMINOPHEN 325 MG TAB PO SCH (03:07)
[2020-01-15 06:41] LABS: Basophils # (auto) 0.01 K/uL (0-0.2); Basophils % (auto) 0.1 %; Eosinophils # (auto) 0.04 K/uL (0-0.5); Eosinophils % (auto) 0.3 %; Hemoglobin 12.7 g/dL (14.0-18.0); Immature Granulocytes % (auto) 0.8 %; Lymphocytes # (auto) 0.62 K/uL (1.2-3.4); Lymphocytes % (auto) 5.2 %; Mean Corpuscular Hemoglobin 30.5 pg (25-34); Mean Corpuscular Hgb Conc 33.4 g/dL (32-36); Mean Corpuscular Volume 91.1 fL (80-100); Mean Platelet Volume 10.6 fL (7.4-10.4); Monocytes # (auto) 1.07 K/uL (0.11-0.59); Neutrophils # (auto) 10.08 K/uL (1.4-6.5); Neutrophils % (auto) 84.6 %; Platelet Count 150 K/uL (130-400); RDW Coefficient of Variation 13.8 % (11.5-14.5); RDW Standard Deviation 45.9 fL (36.4-46.3); Red Blood Count 4.17 M/uL (4.7-6.1); White Blood Count 11.92 K/uL (4.8-10.8)
[2020-01-15 07:14] LABS: BUN Creatinine Ratio 14.8 (10-20); Calcium 8.1 mg/dl (8.5-10.1); Creatinine Clr Calc Pharmacy 72.7 ml/min; Est GFR (African American) 70.3; Est GFR (Non-African American) 60.6; Magnesium 1.9 mg/dl (1.8-2.4); Potassium 3.9 mmol/L (3.5-5.1)
[2020-01-15 07:18] LABS: Phosphorus 3.5 mg/dl (2.5-4.9)
[2020-01-15] MEDS: ATORVASTATIN 40 MG TAB PO SCH (07:43)
[2020-01-15] MEDS: POT PHOSPHATE MONOBASIC W/ SOD TAB PO SCH ×3 (07:43→17:07)
[2020-01-15] MEDS: PSYLLIUM 58.6% POWDER PACKET PO SCH (07:43)
[2020-01-15] MEDS: DICLOFENAC SOD 1% GEL 100 GM TUBE EXT SCH ×4 (07:44→20:48)
[2020-01-15] MEDS: ASPIRIN 81 MG ECTAB PO SCH (07:44)
--- NOTE | 2020-01-15 08:28 | Pharmacy Report ---
Pharmacy Glycemic Short Note 2 - Date of Service January 15, 2020 - Glycemic Short BSG Results (Last 24 hours): OUTPATIENT ANTIDIABETIC REGIMEN: * Metformin 750mg PO BID * A1c = 14.7 % 11/07/19 ASSESSMENT: * BSGs much more controlled yesterday with increased dose of Levemir and tighter Novolog parameters * Continues on ceftriaxone 2 g IV daily PLAN FOR INPATIENT GLYCEMIC CONTROL: * Hold outpatient oral diabetes medications * Basal insulin - continue * Levemir 70 units SC daily * Levemir scale for this evening - see EHR for details * Bolus insulin - continue * NovoLog per scale ACHS or Q6hrs while NPO * Goal Range: Low 110 mg/dL - High 140 mg/dL * Correction Factor: 15 mg/dL/unit * Nutritional / Prandial insulin per carb ratio of 1 unit per 4 grams CHO consumed PLAN FOR DISCHARGE: * A1c of 14.7% demonstrates very poor glycemic control as an outpatient * Patient seen by certified prosthetist/orthotist - patient agreeable to starting once daily basal insulin (to start) * Levemir is covered by patient's insurance * At this point - Levemir 70 units SC daily is a reasonable place to start * Will require prompt outpatient follow-up for continued management of diabetes * Continue outpatient dose of metformin * Support Patient Self-Management * Healthy Lifestyle (diet, exercise, and smoking cessation) * Disease self-management (SMBG) * Prevention of complications (BP, Lipid goals, Immunizations) * Consider outpatient Diabetes Self-Management Education & Support
--- NOTE | 2020-01-15 08:30 | Urology Progress Note ---
Date of Service January 15, 2020 Assessment & Plan (1) Bladder cancer: Bladder ca s/p cystoprostatectomy with ileal conduit - likely infection now - seems to be responding to abx appropriately - no intervention planned right now - cont supportive management with abx/ivf Subjective Continues to improve from a clinical standpoint decreased pain improved energy moved his bowels overnight labs improving lumbar spine MRI yesterday Review of Systems Review of Systems: All systems reviewed & are unremarkable except as noted in HPI & below Physical Exam Physical Exam: abd soft stoma healthy and productive no CVA tenderness Results & Data Vital Signs (Past 12 Hours) Vital Signs Temp Pulse Resp BP Pulse Ox 01/15/20 07:27 36.9 C 84 20 150/82 H 96 01/15/20 00:22 36.3 C L 86 20 115/61 96 PG Care Time/CCT Total # of Minutes Spent Total Time Spent with Patient: Total time spent is greater than 50% in coordination of care (as documented) at patient's floor/unit and/or counseling patient: Coding Level of Care Code 84133 Subseq Hosp Care Lvl 2 Diagnoses Bladder cancer C67.9
[2020-01-15] MEDS: DOCUSATE SODIUM/SENNA 50/8.6MG TAB PO SCH (08:44)
[2020-01-15] MEDS: INSULIN ASPART 100 UNITS/ML 3 ML PEN SC SCH ×4 (08:45→20:47)
[2020-01-15] MEDS: INSULIN DETEMIR FLEXPEN/FLEX TOUCH 100 UNITS/ML 3ML SC SCH (08:46)
[2020-01-15] MEDS ORDERED: INSULIN DETEMIR FLEXPEN/FLEX TOUCH 100 UNITS/ML 3ML SC SCH ×2 (09:00→21:00)
[2020-01-15] MEDS: cefTRIAXone SODIUM 2,000 MG in DEXTROSE 5% 50 ML IV SCH (09:41)
--- NOTE | 2020-01-15 10:09 | Orthopedic Consultation ---
Date of Consultation January 15, 2020 Assessment & Plan (1) Neurogenic claudication due to lumbar spinal stenosis: Patient's MRI does demonstrate evidence of edema within the musculature of his lumbar spine which certainly could account for his acute back pain. He does have underlying significant multilevel lumbar spinal stenosis most impressive at L3-L4. This time I do not appreciate any need for surgical intervention. He clearly needs to control his diabetes. We can follow him up as needed. Present on Admission?: Yes History of Present Illness Reason for Consultation: Back pain Attending Physician: Mala Justin MD History of Present Illness This a very pleasant 64-year-old male presents the emergency room and subsequently admitted with evidence of hyperglycemia and possible infection. He does have evidence of significant right lumbar flank pain. He does describe pain in his legs with numbness with prolonged standing walking. This been present for several years. He does have regular management with a chiropractor. At this point he denies any lower extremity pain or radiculopathy. Denies any weakness. Allergies Allergy/AdvReac Type Severity Reaction Status Date / Time No Known Allergies Allergy Unverified 01/11/20 10:04 Home Medications Home Medications Medication Instructions Recorded Confirmed Type atorvastatin 80 mg tablet 80 mg PO DAILY #90 tab 06/07/19 01/11/20 Rx gabapentin 600 mg tablet 600 mg PO TID #270 tab 10/23/19 01/11/20 Rx Lactobacillus 1 cap PO DAILY 12/18/19 01/11/20 History acidophilus-Bifidobac.animalis 31 billion cell capsule albuterol sulfate 90 mcg/actuation 2 puff INH Q4H PRN 12/18/19 01/11/20 History aerosol inhaler aspirin 81 mg tablet,delayed 81 mg PO DAILY 12/18/19 01/11/20 History release metformin 750 mg tablet,extended 750 mg PO BID #60 tab 12/25/19 01/11/20 Rx release 24 hr Patient History Medical History CAD (coronary artery disease) Diabetes mellitus (Chronic) High cholesterol (Inactive) Hypertension (Inactive) Malignant tumor of urinary bladder (Inactive) Surgical History History of ankle surgery History of coronary angioplasty S/P colonoscopy S/P tooth extraction S/P ureteral stent placement Family History Mother Colorectal cancer Heart disease Diabetes Cardiac disorder Father Hypertension Sister Breast cancer Denies family history of Ovarian cancer Prostate cancer Myocardial infarction Social History Preferred Language: Irish Communication Ability: Effective Arabic Professor Required: No Beliefs That Will Affect Care: None marital status: Current Living Situation: Spouse current occupational status: retired Feels Safe at Home: Yes Safety Concerns: Feels Safe At This Time Smoking Status: Former smoker Hx Alcohol Use: No Hx Substance Use: No Physical Exam Physical Exam: On exam he does have tenderness palpation of the right flank around the L3 445 level. He has no SI joint discomfort. Is no tension signs. Good strength testing otherwise. Results & Data ([facility]) Vital Signs (Past 12 Hours) Vital Signs Temp Pulse Resp BP Pulse Ox 01/15/20 07:27 36.9 C 84 20 150/82 H 96 01/15/20 00:22 36.3 C L 86 20 115/61 96
--- NOTE | 2020-01-15 10:14 | Family Medicine Progress Note ---
Date of Service January 15, 2020 Assessment & Plan (1) Acute UTI (urinary tract infection): Mr. Anna is a 64 yo M PMHx DM2 with Hgb A1c 14.7, bladder cancer s/p prostatectomy, cystectomy, and chemotherapy with remission in [address], CAD s/p PCI admitted for R flank/abdominal pain and HHS and found to have a UTI with culture positive for pansensitive Klebsiella and Alpha Strep, not Enterococcus Urostomy associated UTI without sepsis: - UA on admission + for nitrites, 10-30 WBCS, 2+ bacteria. - UA concerning for UTI and UCx grew alpha Strep (non-Enterococcus) and pansensitive Klebsiella. Continuing Ceftriaxone at this time, currently on day 5. Will deescalate prior to discharge. - Pt relays that about 3-4 months ago he had a urinary tract infection at that time with similar symptoms of hematuria and R sided abdominal/flank pain. - WBC downtrending today from yesterday; pt is improving clinically and pt's urinary infection is sensitive to ceftriaxone. Will continue to monitor with CBC and clinical findings. - Afebrile overnight with no subjective fevers or chills. - Given history of previous similar symptoms in a male with UA and UCx findings suggestive of UTI in a surgically altered urinary tract, will continue treatment. - Pt's initial presentation of chills, as well as his right sided pain and hematuria can all be attributed to a UTI. - Urology recommendation is to continue Abx therapy for another 10-14 days. Not concerned at this time for abscess regarding L renal cyst. - Flank pain could be secondary to UTI, continues to improve so if UTI is causative will expect this to continue to improve. (2) Degenerative disc disease: - Pt self reports history of this. - CTAP showed: "epidural gas in the lumbar spine evident both ventrally and dorsally. It is somewhat atypical to see gas dorsally though this may still be related to degenerative vacuum disc phenomenon with spread of gas" - Pt reports a history of lumbar injections about 6 years ago but this seems atypical to create imaging findings after that much time. Pt without neurological symptoms, weakness, tingling, pain of spinous processes. - MRI spine showed "several lumbar levels with narrowing of the spinal canal along with multilevel degenerative change. Severe spinal canal stenosis at L3-4 and multilevel neural foraminal narrowing most severe at L3-4. No convincing evidence of cauda equina impingement. Paraspinal muscle edema on the right is most likely related to muscle strain. Inflammatory edema is considered unlikely." -Possible that his right flank pain is associated with paraspinal hypertonicity and inflammation rather than UTI. Diclofenac gel ordered prn for flank pain as differential includes MSK pain. - Resumed pt's gabapentin today and increased Tylenol to 1000mg TID. Pt is aware and willing to try weaning of Dilaudid for back pain over the next day. Dilaudid 0.5mg q4h PRN pain. (3) Abdominal pain: - Pt continues to pass a significant amount of gas and with this his abdominal pain as previously described has decreased substantially, however still without substantial BM. - Lipase normal. ALT/AST normal. Alk Phos 156 on admission, down to 118. Hep C screen neg. - CTAP showed normal pancreas, gallbladder and liver; diverticulosis without diverticulitis, and moderate constipation in ascending colon. - previous notes from Urology suggest a possible history of renal calculi however this was not reported by radiology as a significant finding. - Urinary workup as described. - Scheduled Miralax and Metamucil per patient request, Senna/Docusate added as well. - Have ordered for full bottle of magnesium citrate given patient has not had an appropriate BM in several days. - Continue to monitor for constipation. Likely 2/2 opiate use in hospital. (4) Hyperglycemia: HHS in the setting of DM2 not well-controlled on metformin: - BG 559 on admission; throughout admission insulin has been titrated and fluids given in bolus 2.5L and at rate of 125mL/hr; pt was transitioned successfully from insulin drip to qAC and qHS insulins. - mildly elevated anion gap (15); beta-hydroxybutyric acid elevated to 23 on admission. - Hgb A1c found to be 14.7 this admission. - precipitating event: multifactorial, both active infection of UTI as well as likely poor regimen compliance. - Insulin management per pharmacy: - Basal insulin - continue Levemir 70 units SC daily Levemir scale for this evening - see EHR for details Bolus insulin - continue NovoLog per scale ACHS or Q6hrs while NPO Goal Range: Low 110 mg/dL - High 140 mg/dL Correction Factor: 15 mg/dL/unit Nutritional / Prandial insulin per carb ratio of 1 unit per 4 grams CHO consumed - Pt takes metformin 750 BID at home; will require Levemir on discharge to achieve good glucose control. - Pt has spoken with clinical staff educator and is amenable to this. Was also educated on proper DM2 diet moving forward. - Consider MICHAEL inhibitor for renal protection moving forward. Intermittent hypotension while on opiate medications is a barrier to this at this time. (5) Diabetes mellitus: - Uncontrolled disease - HbA1c from 11/07/19 at 14.7, well above goal - Patient currently only on mono-therapy with metformin 750mg, BID in the outpatient setting - Patient insists on medication compliance; elevated sugars likely related to diet as well as active infection - wellness educator consult placed and educated on proper DM2 diet - Will require insulin therapy in the short-term on discharge to bring A1c to goal and close follow up with PCP - patient already on high intensity statin; consider adding MICHAEL inhibitor for renal protection as above. (6) Gross hematuria: - Blood in urostomy bag for fourth day, likely secondary to acute UTI, improving. Pt reports that "hen he gets UTIs, he has hematuria for about a week". - Has a history of intermittent gross hematuria noted on last Urology follow up. Have placed Urology consult, noted mild hematuria. - Hgb stable today. - Hold Heparin at this time 2/2 hematuria, SCDs. - f/u CBC AM. (7) Leukocytosis: - WBC improving today, likely 2/2 antibiotic management of UTI. - Etiology: infection vs. physiologic stress response. - Continue to monitor. 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 - Never had SANTHOSH this admission. - Continue to monitor with BMP AM labs. (9) Constipation: - On CTAP and considered as possible cause of abdominal pain. - Abdominal pain has improved with Miralax and Metamucil. - Given opiate use in hospital and continued constipation have added Senna/Docusate to his regimen without appropriate BM. - Mag citrate added as above. (10) Cyst of left kidney: - 21 cm cyst visualized on CTAP, increased from 11cm on previous scan. - radiology notes increased density of lesion and suggests consideration of hemorrhagic vs. infectious transformation. - Urology consult placed given both this and UTI in surgically altered urinary tract. Recommendations as above, continue Abx in the event that the cyst is infectious. (11) Thrombocytopenia: - Patient with chronic thrombocytopenia, worsened this admission likely 2/2 physiologic stress response. - Pt's plts continue to improve today with further improvement in his UTI. - Continue to monitor. (12) Hypophosphatemia: - Pt's Phosphorus yesterday 2.3; repleting with NeutraPhos 1 tab QID. (13) CAD (coronary artery disease): - patient with history of PCI (stent placement) > 1 year ago. - continue high-intensity statin. -Have since resumed aspirin for CAD protective qualities. Continue to hold heparin given hematuria. (14) Obstructive sleep apnea: - Continue CPAP qHS. (15) Diverticulosis: - Seen on CTAP; no symptoms at this time. - no active management. Dispo: Med/Surg continued stay, but hopeful for discharge home tomorrow if back pain is improved, PT/OT consults pending Diet: Diabetic/Heart Healthy Code: Full DVT ppx: held due to gross hematuria; SCDs Admission and Anticipated Discharge Date Admission Date: January 13, 2020 Anticipated date of discharge: 01/16/20 Supervising Physician Co-Signing Physician Notes I personally examined the patient and verified all smiley points of history and exam, discussed case, and agree with decision making with Dr. Gilliland with the following additions/exceptions: Definitely better today but having right lower back spasms currently as he just returned from work with physical therapy. Abdominal pain is resolved had a small hard bowel movement this morning but nothing substantial. Continues to require IV Dilaudid. It was noted today by Dr. Gilliland that he has not received his gabapentin since admission and this was restarted which will hopefully help his pain Vitals reviewed Overweight, NAD, pleasant, AAOx3 Anicteric sclerae RRR no mgr CTAB no wcr Abd +urostomy bag with pink-tinged urine , +BS soft NT ND, +Right CVA tenderness Ext no edema 64 yo male here with ileal conduit and UTI, right flank pain.Improving but persists and continues to require IV Dilaudid Right flank pain may actually be musculoskeletal given findings on MRI versus from UTI Overall improving from an infectious standpoint Continue Rocephin and will convert to Keflex likely tomorrow Consult Urology appreciated Consult Ortho Spine regarding gas bubbles in spine on imaging-no surgery indicated Continue to hold heparin for hematuria but okay to restart aspirin given severe CAD history PT/OT consulted -Restart gabapentin Possible discharged home tomorrow-May need home health as he requests Subjective Patient without acute events overnight. Intermittent back pain and "spasms" that become worse in tensity after lots of movement such as getting into and out of bed or going on walks. Spoke to patient after he had gone for a walk with physical therapy, said it went "pretty well". Talked today about how he is normally on gabapentin and aleve at home for his back pain. Had a small BM this AM but it was hard, nonbloody. No nausea or vomiting, no fevers or chills. Review of Systems Constitutional: no fever and no chills Respiratory: no dyspnea and no wheezing Cardiovascular: no chest pain, no palpitations and no edema Gastrointestinal: no abdominal pain, no nausea and no vomiting Genitourinary: + hematuria (red urine in urostomy bag) and + flank pain (R sided) Physical Exam Constitutional: WD/WN, vitals as above + obese ENMT: external ear and nose normal, oropharynx normal Neck: normal visual inspection Respiratory: normal respiratory effort, lungs clear to auscultation Cardiovascular: RRR, no murmur, no edema Gastrointestinal (Abdomen): normal bowel sounds, soft, nontender, no hepatosplenomegaly Inspection/Auscultation: no abdominal wall ecchymosis Percussion/Palpation: + abdomen not soft Musculoskeletal: paraspinal muscle tenderness R>L Skin: no rashes, warm and dry Neurologic: patellar DTR's 2+ bilat, sensation intact and PERRL, EOMI, accommodation nl, no face palsy, no dysarthria Back pain with bilateral straight leg raise testing. Strength 5/5 UE, 5/5 LLE, 3/5 RLE with big toe raise, lifting leg off of bed Psychiatric: A+Ox3, euthymic affect Genitourinary: some pink-red tinged urine from urostomy site, stoma intact Results & Data ([facility]) Vital Signs (Past 12 Hours) Vital Signs Temp Pulse Resp BP Pulse Ox 01/15/20 07:27 36.9 C 84 20 150/82 H 96 01/15/20 00:22 36.3 C L 86 20 115/61 96 Resident Activity Tracking Resident Involvement: Resident Care Provided Care Provided: Adult Hospital Medicine (1) Diabetes mellitus Diabetes mellitus complication detail: without coma Diabetes mellitus complication status: with hyperosmolarity Diabetes mellitus halfway insulin use: without halfway use Diabetes mellitus type: type 2 Qualified Code(s): E11.00 - Type 2 diabetes mellitus with hyperosmolarity without nonketotic hyperglycemic-hyperosmolar coma ([facility]) (2) CAD (coronary artery disease) Associated angina: without angina Coronary Disease-Associated Artery/Lesion type: unspecified vessel or lesion type [place] vs. transplanted heart: [place] heart Qualified Code(s): I25.10 - Atherosclerotic heart disease of [place] coronary artery without angina pectoris (3) Leukocytosis Leukocytosis type: unspecified Qualified Code(s): D72.829 - Elevated white blood cell count, unspecified (4) Degenerative disc disease Spinal region: lumbar Qualified Code(s): M51.36 - Other intervertebral disc degeneration, lumbar region (5) Abdominal pain Abdominal location: periumbilical Qualified Code(s): R10.33 - Periumbilical pain (6) Constipation Constipation type: unspecified constipation type Qualified Code(s): K59.00 - Constipation, unspecified
[2020-01-15] MEDS ORDERED: MAGNESIUM CITRATE 296 ML/BTL PO STA (11:18)
[2020-01-15] MEDS: ACETAMINOPHEN 500 MG TAB PO SCH ×2 (12:33→20:44)
[2020-01-15] MEDS: GABAPENTIN 600 MG TAB PO SCH ×2 (13:05→20:47)
--- NOTE | 2020-01-15 18:07 | Billing Data ---
Date of Service January 15, 2020 Coding Level of Care Code 34422 Initial Inpt Care Lvl 3
[2020-01-16] MEDS: HYDROmorphone INJ 0.5 MG/0.5 ML SYR IV PRN (01:04)
[2020-01-16] MEDS: ACETAMINOPHEN 500 MG TAB PO SCH ×2 (03:53→12:30)
[2020-01-16] MEDS ORDERED: HYDROmorphone INJ 0.5 MG/0.5 ML SYR IV PRN (07:14)
[2020-01-16 07:42] LABS: Basophils # (auto) 0.01 K/uL (0-0.2); Basophils % (auto) 0.1 %; Eosinophils # (auto) 0.04 K/uL (0-0.5); Eosinophils % (auto) 0.3 %; Hemoglobin 12.9 g/dL (14.0-18.0); Immature Granulocytes % (auto) 0.8 %; Lymphocytes # (auto) 0.59 K/uL (1.2-3.4); Lymphocytes % (auto) 4.5 %; Mean Corpuscular Hgb Conc 33.9 g/dL (32-36); Mean Corpuscular Volume 91.3 fL (80-100); Mean Platelet Volume 10.5 fL (7.4-10.4); Monocytes # (auto) 1.31 K/uL (0.11-0.59); Monocytes % (auto) 10.1 %; Neutrophils # (auto) 10.95 K/uL (1.4-6.5); Neutrophils % (auto) 84.2 %; Platelet Count 194 K/uL (130-400); RDW Coefficient of Variation 13.8 % (11.5-14.5); Red Blood Count 4.16 M/uL (4.7-6.1)
[2020-01-16 08:19] LABS: BUN Creatinine Ratio 13.7 (10-20); Calcium 8.5 mg/dl (8.5-10.1); Creatinine Clr Calc Pharmacy 71.6 ml/min; Est GFR (African American) 68.9; Est GFR (Non-African American) 59.5; Potassium 3.2 mmol/L (3.5-5.1)
[2020-01-16] MEDS: INSULIN ASPART 100 UNITS/ML 3 ML PEN SC SCH ×2 (08:24→12:18)
[2020-01-16] MEDS: ASPIRIN 81 MG ECTAB PO SCH (08:25)
[2020-01-16] MEDS: PSYLLIUM 58.6% POWDER PACKET PO SCH (08:25)
[2020-01-16] MEDS: ATORVASTATIN 40 MG TAB PO SCH (08:25)
[2020-01-16] MEDS: DOCUSATE SODIUM/SENNA 50/8.6MG TAB PO SCH (08:25)
[2020-01-16] MEDS: INSULIN DETEMIR FLEXPEN/FLEX TOUCH 100 UNITS/ML 3ML SC SCH (08:25)
[2020-01-16] MEDS: GABAPENTIN 600 MG TAB PO SCH (08:26)
[2020-01-16] MEDS: DICLOFENAC SOD 1% GEL 100 GM TUBE EXT SCH ×2 (08:26→12:02)
[2020-01-16] MEDS: cefTRIAXone SODIUM 2,000 MG in DEXTROSE 5% 50 ML IV SCH (10:07)
[2020-01-16] MEDS ORDERED: MAGNESIUM CITRATE 296 ML/BTL PO STA (10:40)
[2020-01-16] MEDS ORDERED: POTASSIUM CHLORIDE 20 MEQ TABCR PO STA (10:47)
[2020-01-16] MEDS ORDERED: OXYCODONE/ACETAMINOPHEN 5mg/325mg TAB PO PRN (10:49)
--- NOTE | 2020-01-16 10:56 | Discharge Summary ---
Date of Service January 16, 2020 Admission HPI Per Admitting Provider Mr. Anna is a 64 yo gentleman with a PMHx of type II diabetes mellitus and bladder cancer s/p cystectomy and prostatectomy who presented to the emergency department today with R sided abdominal/flank pain of 1 day duration. When the discomfort began yesterday, he experienced associated nausea and chills, but no vomiting. He denies a sensation of reflux/heartburn. Initially, he thought the discomfort represented hunger pains, which prompted him to consume more food. In particular, he ate carbohydrate rich foods (citizen of [place] fries, bread, spaghetti, candy, chocolate pudding and a vanilla milkshake). Eating did not help the discomfort, although taking OTC Aleve provided some relief. Of note, basic labs revealed Mr. Anna had an elevated blood glucose >500 in the ED. For his diabetes, he is mono-therapy with metformin 750mg, BID. He denies any missed doses leading up to this admission. As for bladder cancer, he did undergo chemotherapy 2 years ago after his cystectomy and prostatectomy. He has been in remission since 2017. ED course: BG elevated to 559. Beta-hydroxybutyric acid elevated to 16. Bicarb at 22, Anion Gap 13. Na 130, K 4.1. Cr 1.51 (baseline 1.2-1.4). UA + for trace ketones, 3+ glucose, 2+ bacteria, 10-30 WBCs, + nitrites, 1+ blood. Urine culture pending. Abdominopelvic CT scan showing no evidence of kidney stone, normal gallbladder, a 21 cm L sided renal cyst, diverticulosis, and moderate stool burden in the ascending colon. Patient was administered 1 liter bolus of normal saline and started on Normosol at 150mls/hr, 2grams of IV ceftriaxone, insulin ggt, and given a dose of morphine. Admission Exam Per Admitting Provider Constitutional: WD/WN, vitals as above + ill appearing, cooperative and + overweight Eyes: + anicteric sclerae ENMT: external ear and nose normal, oropharynx normal Neck: normal visual inspection Respiratory: normal respiratory effort, lungs clear to auscultation Cardiovascular: RRR, no murmur, no edema Heart Sounds: normal S1 and normal S2 Extremities: no pedal edema Gastrointestinal (Abdomen): Inspection/Auscultation: + abdomen distended Percussion/Palpation: + abdomen tender (RUQ) and abdomen soft; no guarding Skin: no rashes, warm and dry Psychiatric: A+Ox3, euthymic affect Genitourinary: + Urostomy bag in place draining pale yellow colored urine without visible blood clots Principal Diagnosis Urostomy-associated UTI without sepsis HHS Discharge Exam Constitutional: WD/WN, vitals as above + obese ENMT: external ear and nose normal, oropharynx normal Neck: normal visual inspection Respiratory: normal respiratory effort, lungs clear to auscultation Cardiovascular: RRR, no murmur, no edema Gastrointestinal (Abdomen): normal bowel sounds, soft, nontender, no hepatosplenomegaly Inspection/Auscultation: no abdominal wall ecchymosis Percussion/Palpation: abdomen soft Musculoskeletal: paraspinal muscle tenderness R>L Skin: no rashes, warm and dry Neurologic: patellar DTR's 2+ bilat, sensation intact and PERRL, EOMI, accommodation nl, no face palsy, no dysarthria Back pain with bilateral straight leg raise testing. Strength 5/5 UE, 5/5 LLE, 3/5 RLE with big toe raise, lifting leg off of bed Psychiatric: A+Ox3, euthymic affect Genitourinary: some pink-red tinged urine from urostomy site, stoma intact Discharge Data Allergies Allergy/AdvReac Type Severity Reaction Status Date / Time No Known Allergies Allergy Unverified 01/11/20 10:04 Consultations 01/11/20 12:02 ED Decision to Admit Stat 01/13/20 15:19 Consult Orthopedic Surgery Routine Consult Urology Routine 01/16/20 10:51 Consult [employer] engine tester Routine Ordered Studies 01/11/20 09:29 CT abd pelvis IV con only Stat 01/14/20 07:40 MR lumbar spine wo con Routine Hospital Course (1) Acute UTI (urinary tract infection): Mr. Anna is a 64 yo M PMHx DM2 with Hgb A1c 14.7, bladder cancer s/p prostatectomy, cystectomy, and chemotherapy with remission in [address], CAD s/p PCI admitted for R flank/abdominal pain and HHS and found to have a UTI with culture positive for pansensitive Klebsiella and Alpha Strep, not Enterococcus. With appropriate glucose control during admission on Levemir. For discharge today. Urostomy-associated UTI without sepsis: - UA on admission + for nitrites, 10-30 WBCS. - UA concerning for UTI and UCx grew alpha Strep (non-Enterococcus) and pansensitive Klebsiella. Continuing Ceftriaxone at this time, currently on day 5. Will deescalate prior to discharge. - Pt relays that about 3-4 months ago he had a urinary tract infection at that time with similar symptoms of hematuria and R sided abdominal/flank pain. - Afebrile overnight with no subjective fevers or chills. - WBC 13 today, up from 12 yesterday however patient is improving symptomatically. Will discharge with Keflex 500mg TID for 10 more days per Urology recommendations. - Urology recommends follow up as needed for renal cyst and urostomy. May benefit from repeat imaging of L renal cyst to follow progression. - Follow up CBC 5 days. Degenerative disc disease: - Pt self reports history of this, takes gabapentin daily for radicular pain. - CTAP showed: "epidural gas in the lumbar spine evident both ventrally and dorsally. It is somewhat atypical to see gas dorsally though this may still be related to degenerative vacuum disc phenomenon with spread of gas" - Pt reports a history of lumbar injections about 6 years ago but this seems atypical to create imaging findings after that much time. Pt without neurological symptoms, weakness, tingling, pain of spinous processes. - MRI spine showed "several lumbar levels with narrowing of the spinal canal along with multilevel degenerative change. Severe spinal canal stenosis at L3-4 and multilevel neural foraminal narrowing most severe at L3-4. No convincing evidence of cauda equina impingement. Paraspinal muscle edema on the right is most likely related to muscle strain. Inflammatory edema is considered unlikely." - Likely that his right flank pain is associated with paraspinal hypertonicity and inflammation rather than UTI. Initially received Dilaudid 0.5mg PRN pain, transitioned to PO oxycodone and sent home with oxycodone 1 tablet q4h PRN pain (20 tablets). Resumed gabapentin. - Ortho Spine does not require follow up with the patient except on an as-needed basis. Abdominal pain: - Had two bowel movements over the last 24 hours, small, likely 2/2 opiate use in hospital. - Lipase normal. ALT/AST normal. Alk Phos 156 on admission, down to 118. Hep C screen neg. - CTAP showed normal pancreas, gallbladder and liver; diverticulosis without diverticulitis, and moderate constipation in ascending colon. - previous notes from Urology suggest a possible history of renal calculi however this was not reported by radiology as a significant finding. - Urinary workup as described above. - Scheduled Miralax and Metamucil per patient request, Senna/Docusate, Magnesium citrate in hospital for constipation. - Pt will continue OTC medications for constipation at home. Diabetes mellitus, not well controlled on oral therapy; admitted with HHS: - HHS in the setting of DM2 not well-controlled on metformin only at home. - BG 559 on admission; throughout admission insulin has been titrated and fluids given in bolus 2.5L and at rate of 125mL/hr; pt was transitioned successfully from insulin drip to qAC and qHS insulins. - mildly elevated anion gap (15); beta-hydroxybutyric acid elevated to 23 on admission. - Hgb A1c found to be 14.7 this admission. - Precipitating event: multifactorial, both active infection of UTI as well as likely poor regimen compliance. - On discharge patient will use Levemir 70 units qAM. Met with personal development educator who educated on insulin use, proper diet, and checking sugars more often. Will need close follow up to titrate insulin, follow Hgb A1c. - Resume metformin 750 BID on discharge. - Consider MICHAEL inhibitor for renal protection moving forward. Intermittent hypotension while on opiate medications is a barrier to this at this time. Patient already on high-intensity statin. Gross hematuria: - Blood in urostomy bag for fifth day, likely secondary to acute UTI, improving. Pt reports that "when he gets UTIs, he has hematuria for about a week". - Has a history of intermittent gross hematuria noted on last Urology follow up. Have placed Urology consult, noted mild hematuria. - Hgb stable this admission. - Heparin held due to hematuria this admission. - f/u CBC 5 days. Leukocytosis: - WBC without decline today despite continued symptomatic improvement. - CBC 5 days as above. 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 - Pt currently hydrating orally. - Never had SANTHOSH this admission. - Follow up BMP 5 days to assess electrolytes, kidney function. Hypokalemia: - Potassium today 3.2, repleted with 40 meq KCl. - F/u BMP 5 days. Constipation: - On CTAP and considered as possible cause of abdominal pain. - Abdominal pain has improved with Miralax, Metamucil, Senna/Docusate, and finally Magnesium citrate. - Transitioned from IV to PO opiate medication for discharge; given short course of oxycodone 1 tablet q4h PRN severe pain. Cyst of left kidney: - 21 cm cyst visualized on CTAP, increased from 11cm on previous scan. - Radiology notes increased density of lesion and suggests consideration of hemorrhagic vs. infectious transformation. - Urology consult placed given both this and UTI in surgically altered urinary tract. Recommendations as above, continue Abx for twn more days in the event that the cyst is infectious. Thrombocytopenia: - Patient with chronic thrombocytopenia, worsened this admission likely 2/2 physiologic stress response. - Pt's plts continue to improve today with further improvement in his UTI, on discharge plt 194. - CBC 5 days to follow. Hypophosphatemia: - Pt's Phosphorus this admission 2.3; repleted with NeutraPhos 1 tab QID x1 day. CAD (coronary artery disease): - Patient with history of PCI (stent placement) > 1 year ago. - Continue high-intensity statin, aspirin. Obstructive sleep apnea: - Continue CPAP qHS at home. Diverticulosis: - Seen on CTAP; no symptoms at this time. - No active management. Dispo: Home with Home Health, PT/OT. To have repeat CBC/BMP in 5 days to follow potassium, Cr, WBC count, Hgb (2) Degenerative disc disease: (3) Abdominal pain: (4) Hyperglycemia: (5) Diabetes mellitus: (6) Gross hematuria: (7) Leukocytosis: (8) Elevated serum creatinine: (9) Constipation: (10) Cyst of left kidney: (11) Thrombocytopenia: (12) Hypophosphatemia: (13) CAD (coronary artery disease): (14) Obstructive sleep apnea: (15) Diverticulosis: Total Time Total Time Spent Total Time Spent (In Minutes): please see attending attestation Discharge Plan Discharge Items Patient Disposition: Home - Home Health Services Reason For Visit: ABDOMINAL PAIN Discharge Diagnosis: UTI Activity: Per Instructions section Non-emergency contact: Primary Care Provider and Urologist Call non-emergency contact if: your symptoms worsen and your temperature is above 101 Follow-up/Referrals: Vasyl Westbrook, DO [Primary Care Provider] - (Please schedule an appointment for one week. Thank you.) Diet: Carb Consistent or DM2 Ambulatory Orders: Basic Metabolic Panel (Routine) Timeframe: 5 Days Location: Determined by Patient Ordered By: Criss Tan Complete Blood Count with Diff (Routine) Timeframe: 5 Days Location: Determined by Patient Ordered By: Criss Osorio Attending Provider Instructions: You were admitted to the hospital for back and abdominal pain with fevers, as well as elevated sugars. You were found to have a urinary tract infection on your urine culture. You were given antibiotics (ceftriaxone) for this infection and given insulin and fluids for your sugars. Your infection started to get better with antibiotics, and your abdominal pain and back pain got better with physical therapy and laxatives. You were determined to be safe for discharge with the following recommendations: 1) You will take Keflex (cephalexin), an antibiotic for your urinary tract infection. You will take one 500 milligram pill every 8 hours (starting with dinner tonight). You will take that for ten more days. Please complete all of those pills regardless of how you feel. 2) We have sent you home with oxycodone, 1 tablet every 4 hours as needed for your back pain. We have sent 20 tablets to your preferred pharmacy ([facility] on [address]). 3) We have also sent all of your supplies and insulin (called Levemir) to [facility]. You will use 70 units of insulin every morning when you wake up. You will continue to take your home Metformin 750 milligrams every 12 hours. 4) You will be contacted by your primary care doctor's office (Dr. Westbrook) for a follow up appointment. It is very important that you keep this appointment. 5) I have sent you home with prescriptions for labwork to get done in 5 days (a CBC and BMP) to follow your white blood cell counts and your kidney function, as well as your electrolytes. You can get this done with the prescription at any lab, or get it at any [facility] lab. These results will be forwarded to Dr. Westbrook's office. 6) Our Supervisor [employer] will help you set up with Our Supervisor [employer] will help you set up Home Health services for physical therapy and occupational therapy. If you have any chest pain, trouble breathing, new fevers, call Dr. Westbrook's office right away. Pending Studies at Discharge: No Stand-Alone Forms: My [facility], Smoking Cessation Medications and DC Order Prescriptions: New oxycodone-acetaminophen [Percocet] 5-325 mg Tablet 1 tab PO Q4H PRN (Reason: severe pain) Qty: 20 RF: 0 cephalexin 500 mg Capsule 500 mg PO TID 10 Days Qty: 30 RF: 0 Levemir FlexTouch U-100 Insuln 100 unit/mL (3 mL) Insulin Pen 70 unit SC QAM Qty: 15 RF: 0 (DME) pen needle, diabetic [Pen Needle] 32 gauge x 5/32" needle See Rx Instructions .ROUTE .MEDSUPPLY Qty: 30 RF: 0 Continued atorvastatin 80 mg tablet 80 mg PO DAILY Qty: 90 RF: 2 gabapentin 600 mg tablet 600 mg PO TID Qty: 270 RF: 3 metformin 750 mg tablet extended release 24 hr 750 mg PO BID Qty: 60 RF: 5 albuterol sulfate 90 mcg/actuation HFA aerosol inhaler 2 puff INH Q4H PRN (Reason: Shortness Of Breath) RF: 0 Lacto.acidophilus-Bif.animalis 31 billion cell capsule 1 cap PO DAILY RF: 0 aspirin 81 mg tablet,delayed release (DR/EC) 81 mg PO DAILY RF: 0 Discharge Orders: Discharge Order (Routine); Ordered 01/16/20 Ordered By: Criss Charles/Other Patient Handouts: Diabetes and Heart Disease, Diabetes Usp Complications, Diabetes Resources, Diabetes Healthy Meals, Diabetes Exercise Benefits, Diabetes Manage A1C Test Admission Data Admit Date/Time: 01/11/20 13:09 Attending Provider: Mala Justin Admit Provider: Jeferson Darden Primary Care Provider: Vasyl Westbrook Other Providers: Jeferson Darden ; Scott Platt ; Robbie Vaca ; [facility] ; [place],[facility] Other Interventions: Discharge Summary Assessment (RN) Last Done: 01/16/20 11:16 DC Date/Time DO NOT enter until pt leaves facility: 01/16/20 12:38 Supervising Physician Co-Signing Physician Notes I personally examined the patient and verified all smiley points of history and exam, discussed case, and agree with decision making with Dr. Gilliland with the following additions/exceptions: Much improved overall, ambulating in the halls with PT. Pain controlled with po pain meds, hematuria almost resolved but he states "I'm used to that." Very anxious to get home today. Vitals reviewed Overweight, NAD, pleasant, AAOx3 Anicteric sclerae RRR no mgr CTAB no wcr Abd +urostomy bag with pink-tinged urine , +BS soft NT ND, +Right CVA tenderness Ext no edema 64 yo male here with ileal conduit and UTI, right flank pain secondary to UTI and MSK lower back pain. Improved overall -stable for dc to home on Keflex Consult Urology appreciated-f/u as outpt Consult Ortho Spine regarding gas bubbles in spine on imaging-no surgery indicated Resident Activity Tracking Resident Involvement: Resident Care Provided Care Provided: Adult Hospital Medicine
[2020-01-16] MEDS ORDERED: cephALEXin 500 MG CAP PO SCH (17:00)
[2020-01-16] MEDS ORDERED: INSULIN DETEMIR FLEXPEN/FLEX TOUCH 100 UNITS/ML 3ML SC SCH (21:00)
--- NOTE | 2020-01-25 10:32 | Billing Data ---
Date of Service January 16, 2020 I spent greater than 30 minutes coordinating the discharge Coding Level of Care Code D/C Day Management >30 mins
== END 2020-01-16 12:38 | disposition home health service (06) | DRG 698 ==
LOC: ED 08:57 → 2N 08:57 → SUATTDRO 13:09 → 2N 13:57 → 1E 01-12 05:42 → 2S 01-12 14:26 → 2N 01-14 18:09
DX: N39.0 Urinary tract infection, site not specified; M48.062 Spinal stenosis, lumbar region with neurogenic claudication; T83.598A Infection and inflammatory reaction due to other prosthetic device, implant and graft in urinary system, initial encounter; I25.10 Atherosclerotic heart disease of native coronary artery without angina pectoris; E11.00 Type 2 diabetes mellitus with hyperosmolarity without nonketotic hyperglycemic-hyperosmolar coma (NKHHC); Y82.8 Other medical devices associated with adverse incidents

== ENCOUNTER 2022-09-22 08:14 | Observation (INO) ==
--- NOTE | 2022-09-22 08:36 | Emergency Department Note ---
Impression & Plan Complicated urinary tract infection, Acute dehydration, Hyperglycemia ED Provider Note NAME: LIZET JONES AGE: 67 SEX: M : 1955 ARRIVES VIA: Walk-In INFORMANT: Patient, ED PROVIDER(S): Edilson Finch MD CHIEF COMPLAINT: Chills, UTI symptoms MEDICAL DECISION MAKING: Patient does present due to concern for chills and UTI related symptoms. Blood works obtained along with blood and urine cultures procalcitonin the patient was ordered IV fluids antiemetics and empiric cefepime. The patient's blood work Shows a white count of 14 with a normal H&H and platelet count. The patient's kidney function is unremarkable but with prerenal azotemia. Mild hypercalcemia 10.2 and mild hypomagnesemia 1.5. Patient's troponin is not elevated. Patient's urinalysis does show questionable infection as the patient is positive for leukocytes whites and does have bacteria but negative for nitrites. The patient did receive empiric cefepime. Given the concern for complicated UTI I did speak with the on-call hospitalist Dr. Adair and the patient was admitted to the medicine service Prior /Outside records reviewed: I did review the patient's outpatient MRI from yesterday which showed no evidence of renal abscess but did have mild bilateral perinephric edema left greater than right with trace perinephric fluid which randa ears to have slightly improved in the interval this is from a comparison CT from September 04, 2012. I also did review the patient's most recent urine cultures which do show sensitivities to cefepime. Differential diagnosis: Infection, dehydration, metabolic abnormality, hypo/hyperglycemia, electrolyte disturbance, anemia, hypoxia, cardiac sources, intracerebral event, toxicologic, neurologic, as well as other pathologies. Diagnostics, as interpreted by me: ECG: Normal sinus rhythm, rate of 100, normal intervals normal axis no ST elevations or T WI. Cardiac monitoring: An order was placed for continuous cardiac monitoring. The monitor shows a rate of 115 with tachycardic/regular rhythm. Patient was placed on pulse oximetry Medical decision rules: None Imaging studies: See below HPI: Patient presents due to concern for feeling as though he has a recurrence of UTI. The patient does have a known urostomy secondary to prior bladder cancer and reconstruction. The patient does follow with Dr. Vaca and to have an outpatient MRI to evaluate his kidneys yesterday. The patient has noticed the chills with associated abdominal discomfort and nausea and vomiting. No chest pains or shortness of breath no leg swelling or calf pain. The patient has not been able to take much medication at home due to the vomiting. The patient was on a course of antibiotics and believes he was on ciprofloxacin which was completed on the earlier this month. Patient denies any gregorio tional exacerbating remitting factors. No blood in urine or stool that is noted. PAST MEDICAL HISTORY: See Below PAST SURGICAL HISTORY: See Below SOCIAL HISTORY: See Below HOME MEDICATIONS: See Below ALLERGIES: See Below VITALS: See Below PHYSICAL EXAMINATION: GENERAL: NAD, wearing a mask, non-toxic. EYE EXAM: Normal conjunctiva. PERRL, no anisocoria and EOM's grossly intact w/o pain. NECK: Supple, no nuchal rigidity, no adenopathy, non-tender. No signs of meningismus. FROM of the neck with good chin to chest and neck extension. No stridor. LUNGS: Clear to auscultation. Normal chest wall mechanics. HEART: Tachycardic and regular, no MRG. ABDOMEN: Abdomen soft, mild discomfort but no significant pain or peritonitis, urostomy noted in the right abdomen, yellow urine noted in the bag. Normo- active bowel sounds, no masses, no rebound or guarding. BACK: No CVA TTP. SKIN: No rashes and no bruising. UPPER EXTREMITIES: Upper extremities are grossly normal. LOWER EXTREMITIES: Grossly normal, no edema. NEURO EXAM: A&O x3, cranial nerves II-XII grossly intact, normal speech, moves all 4 extremities. Past Med/Surg History Medical History Acute exacerbation of chronic low back pain CAD (coronary artery disease) (~2018) Diabetes mellitus Eustachian tube dysfunction High cholesterol History of primary bladder cancer Hypertension Insulin dependent diabetes mellitus Malignant tumor of urinary bladder Sensorineural hearing loss of both ears Tinnitus, bilateral Surgical History History of ankle surgery History of back surgery (03/21/20) L2-S1 fusion History of coronary angioplasty History of urostomy S/P colonoscopy S/P tooth extraction S/P ureteral stent placement Family History Mother Colorectal cancer Heart disease Diabetes Cardiac disorder Myocardial infarction Father Hypertension Myocardial infarction Sister Breast cancer Denies family history of Ovarian cancer Prostate cancer Social History Smoking Status: Former smoker Second Hand Exposure: No; Hx Alcohol Use: No Hx Substance Use: No Preferred Language: Croatian Communication Ability: Effective Visual Impairment: Limited Hearing Ability: Normal 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 Accordion Required: No Beliefs That Will Affect Care: None marital status: Current Living Situation: Spouse current occupational status: retired Feels Safe at Home: Yes Childhood Exposure to Second-Hand Smoke: Yes Dental Care, Regularly: Yes Physical Activity Frequency: Daily Seatbelt Use: always Sunscreen Use: Yes Assistive Devices: Glasses Allergies Allergies Allergy/AdvReac Type Severity Reaction Status Date / Time Opioids - Morphine Analogues AdvReac "all kind Verified 09/22/22 09:41 of bad stuff" Home Meds Home Medications Medication Instructions Recorded Confirmed aspirin 81 mg tablet,delayed 81 mg PO HS 12/18/19 09/22/22 release cyclobenzaprine 5 mg tablet 5 mg PO TID PRN Muscle Spasm 04/24/22 09/22/22 cefazolin 2 gram solution for 2 g IM Q8H 06/29/22 09/22/22 injection insulin aspart U-100 100 unit/mL 1 sliding scale dose subcut 06/29/22 09/22/22 (3 mL) subcutaneous pen USEASDIRECTD Previous Rx's Medication Instructions Recorded albuterol sulfate 90 mcg/actuation 2 puff inhalation Q4H PRN 05/31/21 aerosol inhaler Shortness Of Breath #8.5 grams citalopram 10 mg tablet 10 mg PO DAILY #30 tabs 09/22/21 ondansetron 4 mg disintegrating 4 mg PO Q8H PRN nausea and 09/22/21 tablet vomiting #30 tabs lisinopril 5 mg tablet 5 mg PO QAM #90 tabs 01/12/22 atorvastatin 80 mg tablet 80 mg PO HS #90 tabs 01/27/22 gabapentin 800 mg tablet 800 mg PO TID #90 tabs 05/31/22 mirtazapine 30 mg tablet (Remeron) 15 - 30 mg PO DAILY #30 tabs 06/06/22 metformin 500 mg 24 hr 1,000 mg PO BID #360 tabs 07/01/22 tablet,extended release diclofenac sodium 1 % topical gel 2 g topical QID #100 grams 08/04/22 insulin aspart U-100 100 unit/mL 10 unit (0.1 mL) subcut TID #15 mL 08/08/22 (3 mL) subcutaneous pen (Novolog FlexPen U-100 Insulin aspart) insulin detemir U-100 100 unit/mL 55 unit (0.55 mL) subcut QPM #30 mL 08/08/22 (3 mL) subcutaneous pen (Levemir FlexTouch U-100 Insulin) Results & Data (ED) Vital Signs Vital Signs - 24 hr 09/22/22 08:15 09/22/22 08:54 09/22/22 08:55 Temperature 37.0 C Temperature Source Oral Oral Pulse Rate 103 H Pulse Rate [Apical] Pulse Strength [Apical] Respiratory Rate 18 Respiratory Effort / Characteristics Respiratory Depth Normal Respiratory Pattern Blood Pressure 158/95 H Blood Pressure [Right Arm] Blood Pressure Mean 116 Blood Pressure Mean [Right Arm] Blood Pressure Position Sitting Pulse Oximetry 97 Oxygen Delivery Method Room Air Room Air Sepsis Recent Fever Within 48 Hours No Sepsis New/Unexplained Change in Mental Status No Sepsis Action Taken by Nursing No Action Required 09/22/22 11:19 09/22/22 13:00 Temperature Temperature Source Pulse Rate Pulse Rate [Apical] 90 101 H Pulse Strength [Apical] Normal Respiratory Rate 20 20 Respiratory Effort / Characteristics Non-Labored Spontaneous Non-Labored Spontaneous Respiratory Depth Normal Normal Respiratory Pattern Regular Regular Blood Pressure Blood Pressure [Right Arm] 173/96 H 157/95 H Blood Pressure Mean Blood Pressure Mean [Right Arm] 121 115 Blood Pressure Position Pulse Oximetry 96 95 Oxygen Delivery Method Room Air Room Air Sepsis Recent Fever Within 48 Hours Sepsis New/Unexplained Change in Mental Status Sepsis Action Taken by [facility] Medications Current Medication List: was personally reviewed by me Laboratory Data Attestation: I reviewed the patient's lab results. 09/22/22 08:51 09/22/22 08:51 Lab Results 09/22/22 09/22/22 09/22/22 Range/Units 08:45 08:51 08:51 WBC 14.40 H (4.8-10.8) K/ul RBC 5.47 (4.70-6.10) M/uL Hgb 17.4 (14.0-18.0) g/dl Hct 48.9 (42.0-52.0) % MCV 89.4 (80.0-100.0) fL MCH 31.8 (25.0-34.0) pg MCHC 35.6 (32.0-36.0) g/dL RDW Std Deviation 44.5 (36.4-46.3) fL RDW Coeff of [place] 13.6 (11.5-14.5) % Plt Count 185 (130-400) K/uL MPV 10.6 (9.4-12.4) fL Immature Gran % (Auto) 2.4 % Neut % (Auto) 87.6 % Lymph % (Auto) 4.6 % [place] % (Auto) 4.9 % Eos % (Auto) 0.2 % Baso % (Auto) 0.3 % Neut # (Auto) 12.62 H (1.40-6.50) K/uL Lymph # (Auto) 0.66 L (1.2-3.4) K/uL [place] # (Auto) 0.71 H (0.11-0.59) K/uL Eos # (Auto) 0.03 (0-0.50) K/uL Baso # (Auto) 0.04 (0-0.2) K/uL Immature Gran # (Auto) 0.34 H (0.01-0.20) K/uL ESR (0-20) mm/hr Sodium 136 (136-145) mmol/L Potassium 3.9 (3.5-5.1) mmol/L Chloride 100 (98-107) mmol/L Carbon Dioxide 24 (21-32) mmol/L Anion Gap 12 H (3-11) BUN 24 H (6-23) mg/dl Creatinine 1.12 (0.6-1.4) mg/dl Est Cr Clr Drug Dosing 67.2 ml/min Est GFR ( Amer) 77.8 ml/min Est GFR (Non-Af Amer) 67.1 ml/min BUN/Creatinine Ratio 21.4 H (10-20) Glucose 299 H (70-99(Fasting)) mg/dl POC Glucose (70-99) mg/dl Lactate (0.4-2.0) mmol/L Calcium 10.2 H (8.5-10.1) mg/dl Magnesium 1.5 L (1.7-2.4) mg/dl Total Bilirubin 0.9 (0.2-1.0) mg/dl Direct Bilirubin 0.1 (0-0.2) mg/dl AST 17 (13-39) U/L ALT 22 (7-52) U/L Alkaline Phosphatase 57 (34-104) U/L Troponin I High Sens 12.5 (0-20) pg/ml C-Reactive Protein < 0.50 (0-0.5) mg/dl Total Protein 8.2 (6.0-8.3) gm/dl Albumin 5.0 (3.4-5.0) gm/dl Procalcitonin (0-0.5) ng/ml Urine Color Yellow Urine Appearance Cloudy A (Clear) Urine pH 6.5 (4.5-7.5) Ur Specific [place] 1.017 (1.000-1.030) Urine Protein 3+ H (Negative) Urine Glucose (UA) 2+ H (Negative) Urine Ketones Trace H (Negative) Urine Blood 2+ H (Negative) Urine Nitrite Negative (Negative) Urine Bilirubin Negative (Negative) Urine Urobilinogen Negative (Negative) Ur Leukocyte Esterase 1+ H (Negative) Urine WBC (Auto) 10-30 H (0-5) /hpf Urine RBC (Auto) 10-30 H (0-4) /hpf U Hyaline Cast (Auto) 5-10 H (0-5) /lpf U Epithel Cells (Auto) >30 H (0-5) /lpf Urine Bacteria (Auto) 1+ H (Negative) Ur Renal Epithelial Cell Not Reportable Urine Mucus Present A (None Prsent) 09/22/22 09/22/22 09/22/22 Range/Units 08:51 08:51 08:51 WBC (4.8-10.8) K/ul RBC (4.70-6.10) M/uL Hgb (14.0-18.0) g/dl Hct (42.0-52.0) % MCV (80.0-100.0) fL MCH (25.0-34.0) pg MCHC (32.0-36.0) g/dL RDW Std Deviation (36.4-46.3) fL RDW Coeff of [place] (11.5-14.5) % Plt Count (130-400) K/uL MPV (9.4-12.4) fL Immature Gran % (Auto) % Neut % (Auto) % Lymph % (Auto) % [place] % (Auto) % Eos % (Auto) % Baso % (Auto) % Neut # (Auto) (1.40-6.50) K/uL Lymph # (Auto) (1.2-3.4) K/uL [place] # (Auto) (0.11-0.59) K/uL Eos # (Auto) (0-0.50) K/uL Baso # (Auto) (0-0.2) K/uL Immature Gran # (Auto) (0.01-0.20) K/uL ESR 18 (0-20) mm/hr Sodium (136-145) mmol/L Potassium (3.5-5.1) mmol/L Chloride (98-107) mmol/L Carbon Dioxide (21-32) mmol/L Anion Gap (3-11) BUN (6-23) mg/dl Creatinine (0.6-1.4) mg/dl Est Cr Clr Drug Dosing ml/min Est GFR ( Amer) ml/min Est GFR (Non-Af Amer) ml/min BUN/Creatinine Ratio (10-20) Glucose (70-99(Fasting)) mg/dl POC Glucose (70-99) mg/dl Lactate 1.8 (0.4-2.0) mmol/L Calcium (8.5-10.1) mg/dl Magnesium (1.7-2.4) mg/dl Total Bilirubin (0.2-1.0) mg/dl Direct Bilirubin (0-0.2) mg/dl AST (13-39) U/L ALT (7-52) U/L Alkaline Phosphatase (34-104) U/L Troponin I High Sens (0-20) pg/ml C-Reactive Protein (0-0.5) mg/dl Total Protein (6.0-8.3) gm/dl Albumin (3.4-5.0) gm/dl Procalcitonin < 0.05 (0-0.5) ng/ml Urine Color Urine Appearance (Clear) Urine pH (4.5-7.5) Ur Specific [place] (1.000-1.030) Urine Protein (Negative) Urine Glucose (UA) (Negative) Urine Ketones (Negative) Urine Blood (Negative) Urine Nitrite (Negative) Urine Bilirubin (Negative) Urine Urobilinogen (Negative) Ur Leukocyte Esterase (Negative) Urine WBC (Auto) (0-5) /hpf Urine RBC (Auto) (0-4) /hpf U Hyaline Cast (Auto) (0-5) /lpf U Epithel Cells (Auto) (0-5) /lpf Urine Bacteria (Auto) (Negative) Ur Renal Epithelial Cell Urine Mucus (None Prsent) 09/22/22 09/22/22 Range/Units 08:51 12:22 WBC (4.8-10.8) K/ul RBC (4.70-6.10) M/uL Hgb (14.0-18.0) g/dl Hct (42.0-52.0) % MCV (80.0-100.0) fL MCH (25.0-34.0) pg MCHC (32.0-36.0) g/dL RDW Std Deviation (36.4-46.3) fL RDW Coeff of [place] (11.5-14.5) % Plt Count (130-400) K/uL MPV (9.4-12.4) fL Immature Gran % (Auto) % Neut % (Auto) % Lymph % (Auto) % [place] % (Auto) % Eos % (Auto) % Baso % (Auto) % Neut # (Auto) (1.40-6.50) K/uL Lymph # (Auto) (1.2-3.4) K/uL [place] # (Auto) (0.11-0.59) K/uL Eos # (Auto) (0-0.50) K/uL Baso # (Auto) (0-0.2) K/uL Immature Gran # (Auto) (0.01-0.20) K/uL ESR (0-20) mm/hr Sodium (136-145) mmol/L Potassium (3.5-5.1) mmol/L Chloride (98-107) mmol/L Carbon Dioxide (21-32) mmol/L Anion Gap (3-11) BUN (6-23) mg/dl Creatinine (0.6-1.4) mg/dl Est Cr Clr Drug Dosing ml/min Est GFR ( Amer) ml/min Est GFR (Non-Af Amer) ml/min BUN/Creatinine Ratio (10-20) Glucose (70-99(Fasting)) mg/dl POC Glucose 226 H (70-99) mg/dl Lactate (0.4-2.0) mmol/L Calcium (8.5-10.1) mg/dl Magnesium (1.7-2.4) mg/dl Total Bilirubin (0.2-1.0) mg/dl Direct Bilirubin (0-0.2) mg/dl AST (13-39) U/L ALT (7-52) U/L Alkaline Phosphatase (34-104) U/L Troponin I High Sens (0-20) pg/ml C-Reactive Protein Cancelled (0-0.5) mg/dl Total Protein (6.0-8.3) gm/dl Albumin (3.4-5.0) gm/dl Procalcitonin (0-0.5) ng/ml Urine Color Urine Appearance (Clear) Urine pH (4.5-7.5) Ur Specific [place] (1.000-1.030) Urine Protein (Negative) Urine Glucose (UA) (Negative) Urine Ketones (Negative) Urine Blood (Negative) Urine Nitrite (Negative) Urine Bilirubin (Negative) Urine Urobilinogen (Negative) Ur Leukocyte Esterase (Negative) Urine WBC (Auto) (0-5) /hpf Urine RBC (Auto) (0-4) /hpf U Hyaline Cast (Auto) (0-5) /lpf U Epithel Cells (Auto) (0-5) /lpf Urine Bacteria (Auto) (Negative) Ur Renal Epithelial Cell Urine Mucus (None Prsent) Administered Medications Magnesium Sulfate/Dextrose (Magnesium Sulfate / D5w) 1 gm in 100 mls @ 50 mls/hr IV Q2H SUYAPA Stop: 09/22/22 15:59 Last Admin: 09/22/22 14:38 Dose: 50 mls/hr Documented By: Infusion: 09/22/22 14:24 Dose: 0 mls/hr Documented By: Admin: 09/22/22 12:14 Dose: 50 mls/hr Documented By: ROBBIE Discontinued Medications Fentanyl Citrate (Fentanyl Citrate 100 Mcg/2 Ml Vial) 50 mcg IV NOW STA Stop: 09/22/22 09:23 Last Admin: 09/22/22 09:32 Dose: 50 mcg Documented By: MEGHANN Gabapentin (Gabapentin 800 Mg Tab) 800 mg PO NOW STA Stop: 09/22/22 11:30 Last Admin: 09/22/22 12:13 Dose: 800 mg Documented By: ROBBIE Sodium Chloride (Nss 1000ml) 1,000 mls @ 999 mls/hr IV .Q1H1M SUYAPA Stop: 09/22/22 09:45 Last Infusion: 09/22/22 10:33 Dose: 0 mls/hr Documented By: Admin: 09/22/22 09:32 Dose: 999 mls/hr Documented By: MEGHANN Cefepime HCl (Maxipime) 2,000 mg in 20 mls @ 5 mls/min IV NOW STA; Protocol Stop: 09/22/22 08:40 Last Admin: 09/22/22 09:32 Dose: 5 mls/min Documented By: MEGHANN Ondansetron HCl (Ondansetron Inj 2 Mg/Ml 2 Ml Vial) Confirm Administered Dose 4 mg .ROUTE .STK-MED ONE Stop: 09/22/22 13:12 Last Admin: 09/22/22 13:16 Dose: 4 mg Documented By: ROBBIE Imaging Data Radiologist's Impression: Chest X-Ray 09/22/22 08:36 XR chest 1V portable CLINICAL HISTORY: Sepsis TECHNIQUE: Single frontal radiograph of the chest was obtained. Comparison: None available at the time of this dictation. FINDINGS: No lines and tubes are seen. Calcified aortic knob is seen. The lungs are clear. No evidence of pleural effusion or pneumothorax. IMPRESSION: No acute abnormalities and in particular no evidence of pneumonia. ACT 112: Negative or not required by law. Electronically signed by: Kun Pickering M.D. 09/22/2022 8:56 AM Discharge Plan Visit Data Chief Complaint: Urinary Symptoms Stated Complaint: UTI SYMPTOMS ED Provider: Edilson Finch Discharge Problem: Complicated urinary tract infection, Acute dehydration, Hyperglycemia Patient Disposition: Admitted As Inpatient Prescriptions Prescriptions: No Action lisinopril 5 mg tablet 5 mg PO QAM Qty: 90 1RF atorvastatin 80 mg tablet 80 mg PO HS Qty: 90 3RF Rx Instructions: for cholesterol gabapentin 800 mg tablet 800 mg PO TID Qty: 90 5RF metformin 500 mg tablet,ER velia.retention 24 hr 1,000 mg PO BID Qty: 360 0RF diclofenac sodium 1 % gel 2 g topical QID Qty: 100 5RF Rx Instructions: apply to single elbow, wrist or hand; for hand includes palm/fingers/back of hand Levemir FlexTouch U-100 Insuln 100 unit/mL (3 mL) insulin pen 55 unit subcut QPM Qty: 30 1RF insulin aspart U-100 [Novolog FlexPen U-100 Insulin] 100 unit/mL (3 mL) insulin pen 10 unit subcut TID Qty: 15 1RF albuterol sulfate 90 mcg/actuation HFA aerosol inhaler 2 puff INH Q4H PRN (Reason: Shortness Of Breath) Qty: 8.5 3RF cefazolin 2 gram recon soln 2 g IM Q8H Rx Instructions: x 22 days via PICC LINE insulin aspart U-100 100 unit/mL (3 mL) insulin pen 1 sliding scale dose subcut USEASDIRECTD mirtazapine [Remeron] 30 mg tablet 15 - 30 mg PO DAILY Qty: 30 2RF citalopram 10 mg tablet 10 mg PO DAILY Qty: 30 5RF ondansetron 4 mg tablet,disintegrating 4 mg PO Q8H PRN (Reason: nausea and vomiting) Qty: 30 1RF aspirin 81 mg tablet,delayed release (DR/EC) 81 mg PO HS cyclobenzaprine 5 mg tablet 5 mg PO TID PRN (Reason: Muscle Spasm) Referrals Referrals: Vasyl Westbrook DO [Physician] -
[2022-09-22] MEDS ORDERED: CEFEPIME 2,000 MG/20 ML VIAL IV STA (08:37)
[2022-09-22] MEDS ORDERED: SODIUM CHLORIDE 0.9% 1000ML 1,000 ML IV SCH (08:45)
[2022-09-22] MEDS ORDERED: fentaNYL citrate 100 MCG/2 ML VIAL IV STA (09:22)
[2022-09-22 09:31] LABS: Appearance Urine Cloudy (Clear); Bacteria Urine Automated 1+ (Negative); Bilirubin Urine Negative (Negative); Blood Urine 2+ (Negative); Color Urine Yellow; Epithelial Cell Urine Auto >30 /lpf (0-5); Glucose Urine UA 2+ (Negative); Ketones Urine Trace (Negative); Leukocyte Esterase Urine 1+ (Negative); Nitrite Urine Negative (Negative); Protein Urine 3+ (Negative); Specific Gravity Urine 1.017 (1.000-1.030); Urobilinogen Urine Negative (Negative); pH Urine 6.5 (4.5-7.5)
[2022-09-22 09:43] LABS: Alanine Aminotransferase 22 U/L (7-52); Alkaline Phosphatase 57 U/L (34-104); Anion Gap 12 (3-11); BUN Creatinine Ratio 21.4 (10-20); Bilirubin Direct 0.1 mg/dl (0-0.2); Bilirubin,Total 0.9 mg/dl (0.2-1.0); Blood Urea Nitrogen 24 mg/dl (6-23); Calcium 10.2 mg/dl (8.5-10.1); Carbon Dioxide 24 mmol/L (21-32); Chloride 100 mmol/L (98-107); Creatinine Clr Calc Pharmacy 67.2 ml/min; Est GFR (African American) 77.8 ml/min; Est GFR (Non-African American) 67.1 ml/min; Glucose 299 mg/dl (70-99(Fasting)); Magnesium 1.5 mg/dl (1.7-2.4); Potassium 3.9 mmol/L (3.5-5.1); Sodium 136 mmol/L (136-145); Total Protein 8.2 gm/dl (6.0-8.3)
[2022-09-22 09:45] LABS: Troponin I High Sensitivity 12.5 pg/ml (0-20)
--- NOTE | 2022-09-22 10:00 | XRay Report ---
XR chest 1V portable CLINICAL HISTORY: Sepsis TECHNIQUE: Single frontal radiograph of the chest was obtained. Comparison: None available at the time of this dictation. FINDINGS: No lines and tubes are seen. Calcified aortic knob is seen. The lungs are clear. No evidence of pleur al effusion or pneumothorax. IMPRESSION: No acute abnormalities and in particular no evidence of pneumonia. ACT 112: Negative or not required by law. Electronically signed by: Kun Pickering M.D. 09/22/2022 8:56 AM
[2022-09-22 10:02] LABS: Mucus Urine Present (None Prsent)
[2022-09-22 11:05] LABS: Aspartate Aminotransferase 17 U/L (13-39)
[2022-09-22] MEDS ORDERED: GABAPENTIN 800 MG TAB PO STA (11:29)
[2022-09-22] MEDS ORDERED: DEXTROSE 50% 50 ML SYRINGE IV PRN (11:52)
[2022-09-22] MEDS ORDERED: GLUCAGON FOR INJ 1 MG VIAL SQ PRN (11:52)
[2022-09-22] MEDS ORDERED: GLUCOSE 40% GEL 15 GM TUBE PO PRN (11:52)
[2022-09-22] MEDS ORDERED: GLUCOSE 10 TAB/TUBE PO PRN (11:52)
[2022-09-22] MEDS ORDERED: CARBOHYDRATES FOR HYPOGLYCEMIA PO PRN (11:52)
--- NOTE | 2022-09-22 12:00 | History & Physical Report ---
Date of Service September 22, 2022 Assessment & Plan (1) Complicated UTI (urinary tract infection): Plan: -Admit to med/tele -The patient is currently afebrile, hemodynamically stable, and stable on RA -Patient noted to have symptoms consistent with his previous UTI's -Found to have a leukocytosis, tachycardia, and UA suggestive of UTI -Recently treated with a course of Cipro for urine cultures + for Enterobacter -No CVA tenderness on exam and MRI of the abdomen obtained on 09/21 shows resolution of his previous left renal abscess -S/P 1L NSS bolus in the ED, patient still appears dry on exam, will give 1L LR x 1bag on admission -Was given 1 dose of Cefepime in the ED, will continue with this for now -Follow urine and blood cultures and tailor abx to their results -[facility] Urology consult placed as he follows with them -Monitor am CBC, BMP, and mag (2) Diabetes mellitus: Plan: -Noted to be hyperglycemic at 299 today, AG of 12 but bicarb WNL -Normally take 55 units of Detemir HS, will convert to lantus, 15 units BID for now as he has not been eating well -Correction factor of 15 with carb ratio of 15 -Monitor BSG ACHS, goal is 110-140 -Hold metformin -Adjust regimen as needed (3) Hypomagnesemia: Plan: -Noted to be 1.5 today -Likely due to recent poor oral intake -Will give 2g IV mag on admission -Monitor AM mag level (4) Hypercalcemia: Plan: -Calcium elevated at 10.2, likely due to dehydration -Continue with IV hydration and monitor am labs (5) Chronic back pain: Plan: -Continue Gabapentin, Flexeril (6) Dyslipidemia: Plan: -Continue statin (7) Obstructive sleep apnea: Plan: -HS CPAP ordered (8) CAD (coronary artery disease): Plan: -Continue aspirin (9) Reactive depression (situational): Plan: -Continue celexa and remeron (10) Hypertension: Plan: -Stable -Continue lisinopril as renal function is stable Plan The patient was discussed with Dr. Adair at the time of the admission History of Present Illness Chief Complaint: Concern for recurrent UTI Primary Care Provider: Robbie Vaca DO Nishant Anna is a 67 year old male with a PMH significant for IDDMII, DLD, CAD S/P IVY to RCA, high-grade muscle invasive bladder cancer status post radical cystectomy with prostatectomy and ileal conduit diversion, chronic back pain, NIDIA, who presented to the [facility] ED on 09/22/22 due to concerns of recurrent UTI symptoms. Per chart review, he was [place] [facility] [place]22[place]06[place]28/22 for a left renal abscess. He underwent IR biopsy with cultures growing MSSA. ID was consulted and the patient was started on Cefazolin. He was discharged with a PICC line with an end date of Cefazolin on 07/20/22. He was last seen in the [facility]rology office on 09/07/22 for ER follow-up. He presented to the [facility] ED on 09/04/22 with nausea and chills, found to have a UTI and was discharged on Cipro. Urine cultures grew Enterobacter, sensitive to ciprofloxacin. He completed his course of abx and per the clinic note, was feeling well. They are planning on obtaining an MRi of the abdomen for further assessment of renal cysts recently noted on his admission to [facility]. At that time they did not feel the need to continue antibiotics for his recent UTI. In the ED today the patient was found to be afebrile, hemodynamically stable, stable on RA, and tachycardic at 103. Labs were significant for a leukocytosis of 14 with a left shift of 12, stable Hgb and platelets, stable cr at 1.12, calcium of 10.2, mag of 1.5 otherwise stable electrolytes, AG of 12 with bicarb of 24, glucose of 299, LFTs WNL, procal < 0.05, UA suggestive of a UTI. Chest xray was read as No acute abnormalities and in particular no evidence of pneumonia.. Prior to admission the patient was given one dose of cefepime, 1L NSS, 50 mcg of fentanyl, and his am dose of gabapentin. At the time of the exam the patient was resting comfortably in bed in no acute distress. He states that he had been feeling well as of his last Urology follow-up on 09/07/22. However, approximately 48 hours he started to develop fever, chills, nausea, and lower abdominal discomfort. These are his typical symptoms when he gets a UTI. He was feeling generally weak and has had a poor appetite over this time as well. He did go and get the routine MRI of the abdomen yesterday but he was still feeling ill and was barely able to tolerate the MRI. He denies recent chest pain, SOB, upper abdominal pain, diarrhea, melena, lower extremity swelling and recent trauma. He confimred that he completed his course of Cefazolin and cipro as previously explained. He wishes to be a full code and would want his to make medical decisions if he could not himself. Please refer to Dr. Albert's attestation for any changes to the treatment plan Allergies Allergy/AdvReac Type Severity Reaction Status Date / Time Opioids - Morphine Analogues AdvReac "all kind Verified 09/22/22 09:41 of bad stuff" Home Medications Medication Instructions Recorded Confirmed Type aspirin 81 mg tablet,delayed 81 mg PO HS 12/18/19 09/22/22 History release albuterol sulfate 90 mcg/actuation 2 puff inhalation Q4H PRN 05/31/21 09/22/22 Rx aerosol inhaler Shortness Of Breath #8.5 grams citalopram 10 mg tablet 10 mg PO DAILY #30 tabs 09/22/21 09/22/22 Rx ondansetron 4 mg disintegrating 4 mg PO Q8H PRN nausea and 09/22/21 09/22/22 Rx tablet vomiting #30 tabs lisinopril 5 mg tablet 5 mg PO QAM #90 tabs 01/12/22 09/22/22 Rx atorvastatin 80 mg tablet 80 mg PO HS #90 tabs 01/27/22 09/22/22 Rx cyclobenzaprine 5 mg tablet 5 mg PO TID PRN Muscle Spasm 04/24/22 09/22/22 History gabapentin 800 mg tablet 800 mg PO TID #90 tabs 05/31/22 09/22/22 Rx mirtazapine 30 mg tablet (Remeron) 15 - 30 mg PO DAILY #30 tabs 06/06/22 09/22/22 Rx cefazolin 2 gram solution for 2 g IM Q8H 06/29/22 09/22/22 History injection insulin aspart U-100 100 unit/mL 1 sliding scale dose subcut 06/29/22 09/22/22 History (3 mL) subcutaneous pen USEASDIRECTD metformin 500 mg 24 hr 1,000 mg PO BID #360 tabs 07/01/22 09/22/22 Rx tablet,extended release diclofenac sodium 1 % topical gel 2 g topical QID #100 grams 08/04/22 09/22/22 Rx insulin aspart U-100 100 unit/mL 10 unit (0.1 mL) subcut TID #15 mL 08/08/22 09/22/22 Rx (3 mL) subcutaneous pen (Novolog FlexPen U-100 Insulin aspart) insulin detemir U-100 100 unit/mL 55 unit (0.55 mL) subcut QPM #30 mL 08/08/22 09/22/22 Rx (3 mL) subcutaneous pen (Levemir FlexTouch U-100 Insulin) Past Med/Surg History Medical History Acute exacerbation of chronic low back pain CAD (coronary artery disease) (~2017) Diabetes mellitus Eustachian tube dysfunction High cholesterol History of primary bladder cancer Hypertension Insulin dependent diabetes mellitus Malignant tumor of urinary bladder Sensorineural hearing loss of both ears Tinnitus, bilateral Surgical History History of ankle surgery History of back surgery (03/21/20) L2-S1 fusion History of coronary angioplasty History of urostomy S/P colonoscopy S/P tooth extraction S/P ureteral stent placement Family History Mother Colorectal cancer Heart disease Diabetes Cardiac disorder Myocardial infarction Father Hypertension Myocardial infarction Sister Breast cancer Denies family history of Ovarian cancer Prostate cancer Social History Smoking Status: Former smoker Second Hand Exposure: No; Hx Alcohol Use: No Hx Substance Use: No Preferred Language: Bangladeshi Communication Ability: Effective Visual Impairment: Limited Hearing Ability: Normal Bioinformatics Developer Required: No Beliefs That Will Affect Care: None marital status: Current Living Situation: Spouse current occupational status: retired Feels Safe at Home: Yes Childhood Exposure to Second-Hand Smoke: Yes Dental Care, Regularly: Yes Physical Activity Frequency: Daily Seatbelt Use: always Sunscreen Use: Yes Assistive Devices: None Review of Systems Review of Systems: Denies current headache, changes in vision, hearing, taste, and smell, chest pain, SOB, cough, vomiting, diarrhea, hematemesis, melena, hematuria, and recent falls. All systems have been reviewed and are otherwise negative. Physical Exam Physical Exam: Physical Exam: General: In no acute distress, stated age, well-nourished, good hygiene, non- toxic appearing HEENT: Normocephalic, atraumatic, no scleral icterus, pupils around round, symmetrical, and reactive to light, moist mucus membranes, trachea midline, no thyromegaly Chest/Pulm: No respiratory distress, symmetrical chest expansion, clear breath sounds throughout Cardiac: tachycardic rate, regular rhythm, no murmurs noted Abdomen: Negative for ascites and bruising, patient with diverting ostomy bag in place, draining clear, yellow urine, normoactive bowel sounds, soft, tender to palpation in the lower abdomen, non-tender in all other locations : Negative for BL CVA tenderness Musculoskeletal: Symmetrical and without signs of acute trauma, upper and lower extremities with full ROM, no atrophy, spasticity, or flaccidity Extremities: Radial, dorsalis pedis, and posterior tibial pulses are intact and symmetrical, no edema noted in the BL LE's Skin: Warm, dry, no rashes , lesions, or scars noted Neuro: Alert and oriented to person, place, month, year, and president, no focal defects, CN II-XII tested and intact, finger to nose test negative, no tremors noted Psych: No acute distress, calm and cooperative during the exam Results & Data Results & Data ([facility]) Vital Signs (Past 12 Hours) Vital Signs Temp Pulse Pulse Resp BP BP Pulse Ox 09/22/22 11:19 90 20 173/96 H 96 09/22/22 08:54 09/22/22 08:15 37.0 C 103 H 18 158/95 H 97 O2 Del Method 09/22/22 11:19 Room Air 09/22/22 08:54 Room Air 09/22/22 08:15 Room Air Laboratory Results Abnormal lab results 09/22/22 09/22/22 Range/Units 08:45 08:51 Anion Gap 12 H (3-11) BUN 24 H (6-23) mg/dl BUN/Creatinine Ratio 21.4 H (10-20) Glucose 299 H (70-99(Fasting)) mg/dl Calcium 10.2 H (8.5-10.1) mg/dl Magnesium 1.5 L (1.7-2.4) mg/dl Urine Appearance Cloudy A (Clear) Urine Protein 3+ H (Negative) Urine Glucose (UA) 2+ H (Negative) Urine Ketones Trace H (Negative) Urine Blood 2+ H (Negative) Ur Leukocyte Esterase 1+ H (Negative) Urine WBC (Auto) 10-30 H (0-5) /hpf Urine RBC (Auto) 10-30 H (0-4) /hpf U Hyaline Cast (Auto) 5-10 H (0-5) /lpf U Epithel Cells (Auto) >30 H (0-5) /lpf Urine Bacteria (Auto) 1+ H (Negative) Urine Mucus Present A (None Prsent) Diagnostic Findings Chest X-Ray 09/22/22 08:36 XR chest 1V portable CLINICAL HISTORY: Sepsis TECHNIQUE: Single frontal radiograph of the chest was obtained. Comparison: None available at the time of this dictation. FINDINGS: No lines and tubes are seen. Calcified aortic knob is seen. The lungs are clear. No evidence of pleural effusion or pneumothorax. IMPRESSION: No acute abnormalities and in particular no evidence of pneumonia. ACT 112: Negative or not required by law. Electronically signed by: Kun Pickering M.D. 09/22/2022 8:56 AM ECG Additional Comments: Normal sinus rhythm Possible Left atrial enlargement When compared with ECG of 24-APR-2022 15:00, No significant change was found Confirmed by Chaz Pritchard ([id number]) on 09/22/2022 9:15:01 AM Code Status & VTE Plan Code Status Full code VTE Prophylaxis Plan VTE Prophylaxis will be ordered: Yes Supervising Physician Co-Signing Physician Notes I personally saw and examined the patient. I verified all smiley points and agree with Harinder Saucedo PA-C with the following exceptions and/or additions: 67 year old male who presents to the ER with his typical symptoms of a UTI (nausea, vomiting, lower abdominal pain, generalized weakness and poor appetite). Has a significant history of high-grade muscle invasive bladder cancer status post radical cystectomy with ileal conduit diversion. Recent history of renal abscess therefore increased risk of complications. Abdominal MRI obtained as outpatient showing bilateral perinephric edema although this has improved since Sep 04 CT. O/E A&Ox3, non-septic appearing, HS, RRR, no murmurs, Chest CTAB, Generalized mild abdominal pain especially around ileal conduit without guarding or rebound tenderness. A/P Complicated UTI - recently finished course of ciprofloxacin. Urine and blood cultures taken. Cefepime for empiric coverage. Consult urology given complex surgical and recent renal abscess history however MRI yesterday is reassuring and no need to repeat imaging at this stage. PG Care Time/CCT Total # of Minutes Spent Total Time Spent with Patient: Total time spent is greater than 50% in coordination of care (as documented) at patient's floor/unit and/or counseling patient: Coding [place] [address] INT INP/OBS CARE MIN Patient Type Established Medical Decision Making High Complexity Diagnoses Complicated UTI (urinary tract infection) N39.0 Diabetes mellitus E11.00 Diabetes mellitus complication detail: without coma Diabetes mellitus complication status: with hyperosmolarity Diabetes mellitus joint terminal attack controller insulin use: without joint terminal attack controller use Diabetes mellitus type: type 2 Hypomagnesemia E83.42 Hypercalcemia E83.52 Chronic back pain M54.9; G89.29 Dyslipidemia E78.5 Obstructive sleep apnea G47.33 CAD (coronary artery disease) I25.10 Associated angina: without angina Coronary Disease-Associated Artery/Lesion type: unspecified vessel or lesion type [place] vs. transplanted heart: [place] heart Reactive depression (situational) F32.9 Hypertension I10 (1) Diabetes mellitus Diabetes mellitus complication detail: without coma Diabetes mellitus complication status: with hyperosmolarity Diabetes mellitus half-way insulin use: without joint terminal attack controller use Diabetes mellitus type: type 2 Qualified Code(s): E11.00 - Type 2 diabetes mellitus with hyperosmolarity without nonketotic hyperglycemic-hyperosmolar coma ([facility]) (2) CAD (coronary artery disease) Associated angina: without angina Coronary Disease-Associated Artery/Lesion type: unspecified vessel or lesion type [place] vs. transplanted heart: [place] heart Qualified Code(s): I25.10 - Atherosclerotic heart disease of [place] coronary artery without angina pectoris
[2022-09-22] MEDS: MAGNESIUM SULFATE / D5W 1 GM/100 ML BAG IV SCH ×2 (12:14→14:38)
[2022-09-22 12:35] LABS: C Reactive Protein < 0.50 mg/dl (0-0.5)
[2022-09-22 12:37] LABS: Basophils # (auto) 0.04 K/uL (0-0.2); Basophils % (auto) 0.3 %; Eosinophils # (auto) 0.03 K/uL (0-0.50); Eosinophils % (auto) 0.2 %; Hematocrit (blood only) 48.9 % (42.0-52.0); Hemoglobin 17.4 g/dl (14.0-18.0); Immature Granulocytes # (auto) 0.34 K/uL (0.01-0.20); Immature Granulocytes % (auto) 2.4 %; Lymphocytes # (auto) 0.66 K/uL (1.2-3.4); Lymphocytes % (auto) 4.6 %; Mean Corpuscular Hemoglobin 31.8 pg (25.0-34.0); Mean Corpuscular Hgb Conc 35.6 g/dL (32.0-36.0); Mean Corpuscular Volume 89.4 fL (80.0-100.0); Mean Platelet Volume 10.6 fL (9.4-12.4); Monocytes # (auto) 0.71 K/uL (0.11-0.59); Monocytes % (auto) 4.9 %; Neutrophils # (auto) 12.62 K/uL (1.40-6.50); Neutrophils % (auto) 87.6 %; Platelet Count 185 K/uL (130-400); RDW Coefficient of Variation 13.6 % (11.5-14.5); RDW Standard Deviation 44.5 fL (36.4-46.3); Red Blood Count 5.47 M/uL (4.70-6.10)
[2022-09-22] MEDS ORDERED: ONDANSETRON INJ 2 MG/ML 2 ML VIAL ONE (13:11)
--- NOTE | 2022-09-22 13:39 | Urology Consultation ---
Date of Consultation September 22, 2022 Assessment & Plan (1) Complicated UTI (urinary tract infection): Plan 67yo/M with a hx of of high-grade muscle invasive bladder cancer status post radical cystectomy with ileal conduit diversion admitted with complicated UTI. -MRI Abd 09/21 reviewed and shows no evidence of abscess, no hydronephrosis. -Pt afebrile and hemodynamically stable. -Labs show leukocytosis of 14 and normal renal function. Continue to monitor. -UA suggestive of infection, culture pending. -Recently treated with course of Cipro for Enterobacter UTI. -Follow cultures and tailor per sensitivities as culture data becomes available. -Continue supportive care. -Urology will follow. Case discussed with Dr. Vaca, on-call urologist. History of Present Illness Reason for Consultation: Recurrent UTI, complex hx History of Present Illness 67 year-old male with a history of high-grade muscle invasive bladder cancer status post radical cystectomy with ileal conduit diversion admitted with complicated UTI. On arrival today, he was afebrile, hemodynamically stable. Tachycardic. Labs significant for leukocytosis of 14, stable hemoglobin, normal renal function. Urinalysis with 2+ blood, 1+ LE, 1+ bacteria, negative nitrite, mucus present. Patient was given a dose of cefepime in the ED. Admitted to medicine for further management. Well-known patient to our office, follows with Dr. Vaca. Recently seen in the office for follow-up of acute UTI. Treated with a course of ciprofloxacin for Enterobacter UTI. Abdomen MRI ordered as well which he had yesterday. Patient examined at bedside in the ED. Awake, resting in bed on arrival. No acute distress. Reports he started feeling poorly last night. Since arriving, he had pain medication, gabapentin, antibiotics, fluids. States he is already feeling a little better. He was able to take a few sips and eat a little fruit, crackers. No pain at present. Denies fevers or chills. Denies nausea or vomiting. Diverting ostomy bag in place, draining clear yellow urine. Abdomen MRI 09/21/22- 1. No evidence for a renal abscess. 2. Mild bilateral perinephric edema, left greater than right is again noted. There is trace perinephric fluid located between the spleen and left kidney. This appears to have slightly improved in the interval. 3. Bilateral renal cysts again noted. No solid enhancing renal masses. CT abdomen pelvis 09/04/22- 1. No significant change compared to the prior study. 2. No evidence for renal abscess. Left greater than right perinephric edema is again noted. 3. Prior cystectomy with right lower quadrant urostomy. 4. No hydronephrosis. Allergies Allergy/AdvReac Type Severity Reaction Status Date / Time Opioids - Morphine Analogues AdvReac "all kind Verified 09/22/22 09:41 of bad stuff" Home Medications Medication Instructions Recorded Confirmed Type aspirin 81 mg tablet,delayed 81 mg PO HS 12/18/19 09/22/22 History release albuterol sulfate 90 mcg/actuation 2 puff inhalation Q4H PRN 05/31/21 09/22/22 Rx aerosol inhaler Shortness Of Breath #8.5 grams citalopram 10 mg tablet 10 mg PO DAILY #30 tabs 09/22/21 09/22/22 Rx ondansetron 4 mg disintegrating 4 mg PO Q8H PRN nausea and 09/22/21 09/22/22 Rx tablet vomiting #30 tabs lisinopril 5 mg tablet 5 mg PO QAM #90 tabs 01/12/22 09/22/22 Rx atorvastatin 80 mg tablet 80 mg PO HS #90 tabs 01/27/22 09/22/22 Rx cyclobenzaprine 5 mg tablet 5 mg PO TID PRN Muscle Spasm 04/24/22 09/22/22 History gabapentin 800 mg tablet 800 mg PO TID #90 tabs 05/31/22 09/22/22 Rx mirtazapine 30 mg tablet (Remeron) 15 - 30 mg PO DAILY #30 tabs 06/06/22 09/22/22 Rx cefazolin 2 gram solution for 2 g IM Q8H 06/29/22 09/22/22 History injection insulin aspart U-100 100 unit/mL 1 sliding scale dose subcut 06/29/22 09/22/22 History (3 mL) subcutaneous pen USEASDIRECTD metformin 500 mg 24 hr 1,000 mg PO BID #360 tabs 07/01/22 09/22/22 Rx tablet,extended release diclofenac sodium 1 % topical gel 2 g topical QID #100 grams 08/04/22 09/22/22 Rx insulin aspart U-100 100 unit/mL 10 unit (0.1 mL) subcut TID #15 mL 08/08/22 09/22/22 Rx (3 mL) subcutaneous pen (Novolog FlexPen U-100 Insulin aspart) insulin detemir U-100 100 unit/mL 55 unit (0.55 mL) subcut QPM #30 mL 08/08/22 09/22/22 Rx (3 mL) subcutaneous pen (Levemir FlexTouch U-100 Insulin) Patient History Medical History Acute exacerbation of chronic low back pain CAD (coronary artery disease) (~2018) Diabetes mellitus Eustachian tube dysfunction High cholesterol History of primary bladder cancer Hypertension Insulin dependent diabetes mellitus Malignant tumor of urinary bladder Sensorineural hearing loss of both ears Tinnitus, bilateral Surgical History History of ankle surgery History of back surgery (03/21/20) L2-S1 fusion History of coronary angioplasty History of urostomy S/P colonoscopy S/P tooth extraction S/P ureteral stent placement Family History Mother Colorectal cancer Heart disease Diabetes Cardiac disorder Myocardial infarction Father Hypertension Myocardial infarction Sister Breast cancer Denies family history of Ovarian cancer Prostate cancer Social History Smoking Status: Former smoker Second Hand Exposure: No; Hx Alcohol Use: No Hx Substance Use: No Preferred Language: [place] Communication Ability: Effective Visual Impairment: Limited Hearing Ability: Normal Linotype Mechanic Required: No Beliefs That Will Affect Care: None marital status: Current Living Situation: Spouse current occupational status: retired Feels Safe at Home: Yes Childhood Exposure to Second-Hand Smoke: Yes Dental Care, Regularly: Yes Physical Activity Frequency: Daily Seatbelt Use: always Sunscreen Use: Yes Assistive Devices: Glasses Review of Systems Review of Systems: All systems reviewed & are unremarkable except as noted in HPI & below Physical Exam Constitutional: well developed and well nourished; no acute distress Eyes: PERRL, conjunctivae normal, anicteric sclerae ENMT: external ear and nose normal, oropharynx normal Neck: normal visual inspection Respiratory: normal respiratory effort; no respiratory distress and no labored breathing Musculoskeletal: Head/Neck/Chest: normocephalic Skin: No visible rashes or lesions to exposed skin areas Neurologic: awake Psychiatric: A+Ox3, euthymic affect Genitourinary: no CVA tenderness Diverting ostomy bag in place, urine is clear yellow. Results & Data ([facility]) Vital Signs (Past 12 Hours) Vital Signs Temp Pulse Pulse Resp BP BP Pulse Ox 09/22/22 13:00 101 H 20 157/95 H 95 09/22/22 11:19 90 20 173/96 H 96 09/22/22 08:54 09/22/22 08:15 37.0 C 103 H 18 158/95 H 97 O2 Del Method 09/22/22 13:00 Room Air 09/22/22 11:19 Room Air 09/22/22 08:54 Room Air 09/22/22 08:15 Room Air PG Care Time/CCT Total # of Minutes Spent Total Time Spent with Patient: Total time spent is greater than 50% in coordination of care (as documented) at patient's floor/unit and/or counseling patient: Coding Level of Care Code 20141 INT INP/OBS CARE 2/55MIN Diagnoses Complicated UTI (urinary tract infection) N39.0
[2022-09-22] MEDS: INSULIN ASPART PER UNIT SC SCH ×2 (17:46→21:33)
[2022-09-22] MEDS ORDERED: ACETAMINOPHEN 325 MG TAB PO PRN (20:30)
[2022-09-22] MEDS ORDERED: ONDANSETRON INJ 2 MG/ML 2 ML VIAL IV PRN (20:30)
[2022-09-22] MEDS ORDERED: PHARMACY GLYCEMIC MGMT CONSULT PRN (20:30)
[2022-09-22] MEDS ORDERED: ALBUTEROL HFA 8 GM INHALER INH PRN (20:30)
[2022-09-22] MEDS ORDERED: LACTATED RINGER'S 1,000 ML IV SCH (20:30)
[2022-09-22] MEDS ORDERED: LANTUS PER UNIT CHARGE SQ SCH (21:00)
[2022-09-22] MEDS: ENOXAPARIN INJ 40 MG/0.4 ML SYR SQ SCH (21:13)
[2022-09-22] MEDS: CYCLOBENZAPRINE HCL 5 MG TAB PO PRN (21:14)
[2022-09-22] MEDS: ATORVASTATIN 40 MG TAB PO SCH (21:14)
[2022-09-22] MEDS: ASPIRIN 81 MG ECTAB PO SCH (21:14)
[2022-09-22] MEDS: GABAPENTIN 800 MG TAB PO SCH (21:15)
[2022-09-22] MEDS: CEFEPIME 2,000 MG in SYRINGE 0 ML IV SCH (22:20)
[2022-09-23 06:32] LABS: Hematocrit (blood only) 43.2 % (42.0-52.0); Hemoglobin 15.3 g/dl (14.0-18.0); Mean Corpuscular Hemoglobin 32.1 pg (25.0-34.0); Mean Corpuscular Hgb Conc 35.4 g/dL (32.0-36.0); Mean Corpuscular Volume 90.8 fL (80.0-100.0); Mean Platelet Volume 10.3 fL (9.4-12.4); Platelet Count 155 K/uL (130-400); RDW Coefficient of Variation 13.8 % (11.5-14.5); RDW Standard Deviation 46.2 fL (36.4-46.3); Red Blood Count 4.76 M/uL (4.70-6.10); White Blood Count 11.93 K/ul (4.8-10.8)
[2022-09-23 06:58] LABS: Calcium 9.2 mg/dl (8.5-10.1); Magnesium 1.8 mg/dl (1.7-2.4); Potassium 3.9 mmol/L (3.5-5.1)
[2022-09-23 07:04] LABS: BUN Creatinine Ratio 21.1 (10-20); Creatinine Clr Calc Pharmacy 66.1 ml/min; Est GFR (African American) 76.2 ml/min; Est GFR (Non-African American) 65.7 ml/min
--- NOTE | 2022-09-23 07:45 | Urology Progress Note ---
Date of Service September 23, 2022 Assessment & Plan (1) Complicated UTI (urinary tract infection): Plan 67yo/M with a hx of of high-grade muscle invasive bladder cancer status post radical cystectomy with ileal conduit diversion admitted with complicated UTI. -MRI Abd 09/21 reviewed and shows no evidence of abscess, no hydronephrosis. -Subjectively feeling much better this morning. -Afebrile and hemodynamically stable. -Labs show wbc downtrending 14-11 today and normal renal function. Continue to monitor. -Urine culture pending, blood cultures prelim no growth x 24 hours. -Follow cultures and tailor per sensitivities as culture data becomes available. -Continue supportive care. -Plan for outpatient follow-up with urology as scheduled. -Urology will sign-off. Please contact us with any further questions, concerns, or changes in patient status. Admission and Anticipated Discharge Date Admission Date: September 22, 2022 Subjective Patient examined at bedside this AM. Awake, resting in bed on arrival. No acute distress. Reports feeling much better this morning. Appetite is better. No fevers or chills. No nausea or vomiting. Urine is clear yellow. Urostomy site changed by patient this morning. Denies any pain or discomfort. Review of Systems Constitutional: as per Subjective / HPI Gastrointestinal: as per Subjective / HPI Genitourinary: + as per Subjective / HPI Physical Exam Constitutional: well developed and well nourished; no acute distress Respiratory: normal respiratory effort; no respiratory distress and no labored breathing Musculoskeletal: Head/Neck/Chest: normocephalic Neurologic: awake Psychiatric: A+Ox3, euthymic affect Genitourinary: no CVA tenderness Diverting ostomy bag in place, urine is clear yellow. Results & Data ([facility]) Vital Signs (Past 12 Hours) Vital Signs Temp Pulse Pulse Resp BP Pulse Ox O2 Del Method 09/23/22 04:07 37.4 C 83 20 141/93 H 96 Room Air 09/22/22 23:44 37.2 C 82 20 123/74 96 Room Air 09/22/22 23:21 83 09/22/22 21:47 87 09/22/22 21:02 37.3 C 71 18 151/90 H 97 Room Air PG Care Time/CCT Total # of Minutes Spent Total Time Spent with Patient: Total time spent is greater than 50% in coordination of care (as documented) at patient's floor/unit and/or counseling patient: Coding Level of Care Code 71468 SUB INP/OBS CARE 2MIN Diagnoses Complicated UTI (urinary tract infection) N39.0
[2022-09-23] MEDS: lisinopril 5 MG TAB PO SCH (08:27)
[2022-09-23] MEDS: GABAPENTIN 800 MG TAB PO SCH ×3 (08:27→21:58)
[2022-09-23] MEDS: CITALOPRAM 20 MG TAB PO SCH (08:27)
[2022-09-23] MEDS: INSULIN ASPART PER UNIT SC SCH ×4 (08:28→21:58)
[2022-09-23] MEDS: LANTUS PER UNIT CHARGE SQ SCH ×2 (08:39→22:04)
[2022-09-23] MEDS: CEFEPIME 2,000 MG in SYRINGE 0 ML IV SCH ×2 (11:20→22:04)
--- NOTE | 2022-09-23 12:15 | Pharmacy Report ---
Pharmacy Glycemic Short Note 2 - Date of Service September 23, 2022 - Glycemic Short BSG Results (Last 24 hours): 09/22/22 09/22/22 09/22/22 12:22 17:42 20:29 Glucose POC Glucose 226 H 223 H 190 H 09/23/22 09/23/22 06:17 08:06 Glucose 200 H POC Glucose 188 H OUTPATIENT ANTIDIABETIC REGIMEN: * Novolog 10 units TID + sliding scale * Detemir 55 units HS * Metformin ER 1,000 mg BID ASSESSMENT: * Patient presented to the ED with tachycardia likely due to complicated UTI. UTI currently being managed with cefepime 2,000 mg q12h. Patient is currently ordered a carb consistent diet. PLAN FOR INPATIENT GLYCEMIC CONTROL: * Hold outpatient oral diabetes medications * Basal insulin * Lantus 20 units SQ BID * Bolus insulin * NovoLog per scale ACHS * Goal Range: Low 110 mg/dL - High 140 mg/dL * Correction Factor: 25 mg/dL/unit * Nutritional / Prandial insulin per carb ratio of 1 unit per 10 grams CHO consumed
--- NOTE | 2022-09-23 16:11 | Hospitalist Progress Note ---
Date of Service September 23, 2022 Assessment & Plan (1) Complicated UTI (urinary tract infection): Plan: The patient remains on cefepime, day 2. Gram-negative rods and a staph species isolated in the urine. Final identification pending. Blood cultures remain negative to date. White blood cell count appears to be trending downward. Urology consultation appreciated (2) Diabetes mellitus: Plan: Metformin is on hold. Glucose appears to be trending downward with Lantus 20 units twice daily. ADA diet. Sliding scale coverage as needed. (3) Hypomagnesemia: Plan: Oral and intravenous replacement. Serial labs (4) Hypercalcemia: Plan: Mild. We will follow (5) Chronic back pain: Plan: Continue Gabapentin, Flexeril . Stable (6) Dyslipidemia: Plan: Continue statin (7) Obstructive sleep apnea: Plan: HS CPAP. Stable (8) CAD (coronary artery disease): Plan: Stable. Continue current medical management (9) Reactive depression (situational): Plan: Stable with celexa and remeron (10) Hypertension: Plan: Stable . Continue lisinopril Plan Anticipate eventual discharge to home. Possibly tomorrow, September 24 on oral antibiotic Admission and Anticipated Discharge Date Admission Date: September 22, 2022 Subjective Alert and oriented. No new problems. He is on intravenous cefepime, day 2. Gram-negative's isolated in the urine along with a staph species. Final iden tification is pending. Blood cultures remain negative to date. White blood cell count trending down. Appreciate urology consultation and input. Review of Systems Review of Systems: Constitutional-no fever or chills ENT-no blurred vision, no double vision, no epistaxis, no sore throat Respiratory-no cough, no wheezing, no shortness of breath Cardiac-no palpitations, no chest pain, no syncope GI-no nausea, vomiting, diarrhea, melena, hematochezia -no urinary retention, no urinary incontinence, no dysuria, no hematuria Musculoskeletal-no joint pain, no muscle tenderness Skin-no bruising, no rashes, no pruritus Neuro-no isolated weakness, no paresthesia, no weakness Psych-no depression, no anxiety Physical Exam Physical Exam: General-alert and oriented x3, no fevers, no chills HEENT-head atraumatic and normocephalic, pupils equal and reactive to light, extraocular muscles intact Neck-no lymphadenopathy or thyromegaly, trachea midline Chest-clear to auscultation percussion. No rales wheezing or rhonchi Cardiac-regular rate and rhythm, normal S1 and S2 Abdomen-normal bowel sounds, nontender, no hepatosplenomegaly Extremities-no cyanosis, clubbing, or edema Neuro-cranial nerves II through XII intact, motor and sensory function within normal limits, strength symmetrical , no focal deficits Psych-normal affect, normal mood Results & Data Results & Data ([facility]) Vital Signs (Past 12 Hours) Vital Signs Temp Pulse Pulse Resp BP Pulse Ox O2 Del Method 09/23/22 15:56 37.5 C 79 18 128/75 95 Room Air 09/23/22 11:48 36.8 C 71 20 125/73 93 Room Air 09/23/22 08:25 36.5 C 79 20 135/90 96 Room Air 09/23/22 08:04 70 09/23/22 04:07 37.4 C 83 20 141/93 H 96 Room Air Laboratory Results 09/23/22 06:17 09/23/22 06:17 PG Care Time/CCT Total # of Minutes Spent Total Time Spent with Patient: Total time spent is greater than 50% in coordination of care (as documented) at patient's floor/unit and/or counseling patient: Coding Level of Care Code 02041 SUB INP/OBS CARE 3/50MIN Diagnoses Complicated UTI (urinary tract infection) N39.0 Diabetes mellitus E11.00 Diabetes mellitus type: type 2 Diabetes mellitus terminologist insulin use: without terminologist use Diabetes mellitus complication status: with hyperosmolarity Diabetes mellitus complication detail: without coma Hypomagnesemia E83.42 Hypercalcemia E83.52 Chronic back pain M54.9; G89.29 Dyslipidemia E78.5 Obstructive sleep apnea G47.33 CAD (coronary artery disease) I25.10 Coronary Disease-Associated Artery/Lesion type: unspecified vessel or lesion type [place] vs. transplanted heart: [place] heart Associated angina: without angina Reactive depression (situational) F32.9 Hypertension I10 (1) Diabetes mellitus Diabetes mellitus type: type 2 Diabetes mellitus terminologist insulin use: without terminologist use Diabetes mellitus complication status: with hyperosmolarity Diabetes mellitus complication detail: without coma Qualified Code(s): E11.00 - Type 2 diabetes mellitus with hyperosmolarity without nonketotic hyperglycemic-hyperosmolar coma ([facility]) (2) CAD (coronary artery disease) Coronary Disease-Associated Artery/Lesion type: unspecified vessel or lesion type [place] vs. transplanted heart: [place] heart Associated angina: without angina Qualified Code(s): I25.10 - Atherosclerotic heart disease of [place] coronary artery without angina pectoris
[2022-09-23] MEDS: ATORVASTATIN 40 MG TAB PO SCH (21:57)
[2022-09-23] MEDS: ASPIRIN 81 MG ECTAB PO SCH (21:57)
[2022-09-23] MEDS: ENOXAPARIN INJ 40 MG/0.4 ML SYR SQ SCH (21:57)
[2022-09-24 06:33] LABS: Hematocrit (blood only) 44.7 % (42.0-52.0); Hemoglobin 15.7 g/dl (14.0-18.0); Mean Corpuscular Hemoglobin 31.8 pg (25.0-34.0); Mean Corpuscular Hgb Conc 35.1 g/dL (32.0-36.0); Mean Corpuscular Volume 90.5 fL (80.0-100.0); Mean Platelet Volume 10.1 fL (9.4-12.4); Platelet Count 149 K/uL (130-400); RDW Coefficient of Variation 13.6 % (11.5-14.5); RDW Standard Deviation 45.1 fL (36.4-46.3); Red Blood Count 4.94 M/uL (4.70-6.10); White Blood Count 7.93 K/ul (4.8-10.8)
[2022-09-24 06:51] LABS: Calcium 9.2 mg/dl (8.5-10.1)
[2022-09-24 06:57] LABS: BUN Creatinine Ratio 22.7 (10-20); Creatinine Clr Calc Pharmacy 68.5 ml/min; Est GFR (African American) 79.5 ml/min; Est GFR (Non-African American) 68.6 ml/min
[2022-09-24] MEDS: CYCLOBENZAPRINE HCL 5 MG TAB PO PRN (08:19)
[2022-09-24] MEDS: CITALOPRAM 20 MG TAB PO SCH (08:20)
[2022-09-24] MEDS: GABAPENTIN 800 MG TAB PO SCH (08:20)
[2022-09-24] MEDS: lisinopril 5 MG TAB PO SCH (08:20)
[2022-09-24] MEDS: INSULIN ASPART PER UNIT SC SCH ×2 (08:25→12:39)
[2022-09-24] MEDS: LANTUS PER UNIT CHARGE SQ SCH (08:25)
--- NOTE | 2022-09-24 10:02 | Discharge Summary ---
Date of Service September 24, 2022 Admission HPI Per Admitting Provider Nishant Anna is a 67 year old male with a PMH significant for IDDMII, DLD, CAD S/P IVY to RCA, high-grade muscle invasive bladder cancer status post radical cystectomy with prostatectomy and ileal conduit diversion, chronic back pain, NIDIA, who presented to the [facility] ED on 09/22/22 due to concerns of recurrent UTI symptoms. Per chart review, he was admitted to [facility] from 06/21/22-06/28/22 for a left renal abscess. He underwent IR biopsy with cultures growing MSSA. ID was consulted and the patient was started on Cefazolin. He was discharged with a PICC line with an end date of Cefazolin on 07/20/22. He was last seen in the [facility] office on 09/07/22 for ER follow-up. He presented to the [facility] ED on 09/04/22 with nausea and chills, found to have a UTI and was discharged on Cipro. Urine cultures grew Enterobacter, sensitive to ciprofloxacin. He completed his course of abx and per the clinic note, was feeling well. They are planning on obtaining an MRi of the abdomen for further assessment of renal cysts recently noted on his admission to [facility]. At that time they did not feel the need to continue antibiotics for his recent UTI. In the ED today the patient was found to be afebrile, hemodynamically stable, stable on RA, and tachycardic at 103. Labs were significant for a leukocytosis of 14 with a left shift of 12, stable Hgb and platelets, stable cr at 1.12, calcium of 10.2, mag of 1.5 otherwise stable electrolytes, AG of 12 with bicarb of 24, glucose of 299, LFTs WNL, procal < 0.05, UA suggestive of a UTI. Chest xray was read as No acute abnormalities and in particular no e vidence of pneumonia.. Prior to admission the patient was given one dose of cefepime, 1L NSS, 50 mcg of fentanyl, and his am dose of gabapentin. At the time of the exam the patient was resting comfortably in bed in no acute distress. He states that he had been feeling well as of his last Urology follow-up on 09/07/22. However, approximately 48 hours he started to develop fever, chills, nausea, and lower abdominal discomfort. These are his typical symptoms when he gets a UTI. He was feeling generally weak and has had a poor appetite over this time as well. He did go and get the routine MRI of the abdomen yesterday but he was still feeling ill and was barely able to tolerate the MRI. He denies recent chest pain, SOB, upper abdominal pain, diarrhea, melena, lower extremity swelling and recent trauma. He confimred that he completed his course of Cefazolin and cipro as previously explained. He wishes to be a full code and would want his to make medical decisions if he could not himself. Please refer to Dr. Albert's attestation for any changes to the treatment plan Principal Diagnosis Complicated urinary tract infection Discharge Exam General-alert and oriented x3, no fevers, no chills HEENT-head atraumatic and normocephalic, pupils equal and reactive to light, extraocular muscles intact Neck-no lymphadenopathy or thyromegaly, trachea midline Chest-clear to auscultation percussion. No rales wheezing or rhonchi Cardiac-regular rate and rhythm, normal S1 and S2 Abdomen-normal bowel sounds, nontender, no hepatosplenomegaly Extremities-no cyanosis, clubbing, or edema Neuro-cranial nerves II through XII intact, motor and sensory function within normal limits, strength symmetrical , no focal deficits Psych-normal affect, normal mood Discharge Data Allergies Allergy/AdvReac Type Severity Reaction Status Date / Time Opioids - Morphine Analogues AdvReac "all kind Verified 09/22/22 09:41 of bad stuff" Consultations 09/22/22 11:44 ED Decision to Admit Stat 09/22/22 12:09 Consult Urology Routine Hospital Course (1) Complicated UTI (urinary tract infection): The patient was treated with cefepime while hospitalized, day 3. Gram- negative rods and a staph species isolated in the urine. Final identification pending. This can be followed up by his PCP or urologist. Blood cultures remain negative to date. White blood cell count is trending downward. Urology consultation appreciated (2) Diabetes mellitus: Metformin is on hold. Glucose appears to be trending downward with Lantus 20 units twice daily. ADA diet. Sliding scale coverage as needed. Will resume metformin at discharge (3) Hypomagnesemia: Oral and intravenous replacement. Serial labs . Corrected (4) Hypercalcemia: Mild. No intervention necessary (5) Chronic back pain: Continue Gabapentin, Flexeril . Stable (6) Dyslipidemia: Continue statin (7) Obstructive sleep apnea: HS CPAP. Stable (8) CAD (coronary artery disease): Stable. Continue current medical management (9) Reactive depression (situational): Stable with celexa and remeron (10) Hypertension: Stable . Continue lisinopril Plan Discharge to home today, September 24, with home health services on oral Cipro Total Time Total Time Spent Total Time Spent (In Minutes): 35 minutes Discharge Plan Discharge Items Patient Disposition: Home - Home Health Services Reason For Visit: CONCERN FOR UTI Discharge Diagnosis: Complicated UTI Activity: Resume your previous activity Non-emergency contact: Primary Care Provider and Urologist Call non-emergency contact if: you have any medication questions Follow-up/Referrals: Robbie Vaca DO [Physician] - 10/25/22 11:45 am Robbie Vaca DO [Primary Care Provider] - Diet: Carb Consistent or DM2 and Heart Healthy Addtl Attending Provider Instructions: Take Ciprofloxacin for 10 days. Your primary care provider or urologist should check urine culture results and adjust antibiotics if necessary Pending Studies at Discharge: No Stand-Alone Forms: My Gem, Smoking Cessation Medications and DC Order Prescriptions: New ciprofloxacin HCl [Cipro] 500 mg tablet 500 mg PO BID Qty: 20 0RF Continued lisinopril 5 mg tablet 5 mg PO QAM Qty: 90 1RF atorvastatin 80 mg tablet 80 mg PO HS Qty: 90 3RF Rx Instructions: for cholesterol gabapentin 800 mg tablet 800 mg PO TID Qty: 90 5RF metformin 500 mg tablet,ER velia.retention 24 hr 1,000 mg PO BID Qty: 360 0RF diclofenac sodium 1 % gel 2 g topical QID Qty: 100 5RF Rx Instructions: apply to single elbow, wrist or hand; for hand includes palm/fingers/back of hand Levemir FlexTouch U-100 Insuln 100 unit/mL (3 mL) insulin pen 55 unit subcut QPM Qty: 30 1RF insulin aspart U-100 [Novolog FlexPen U-100 Insulin] 100 unit/mL (3 mL) insulin pen 10 unit subcut TID Qty: 15 1RF albuterol sulfate 90 mcg/actuation HFA aerosol inhaler 2 puff INH Q4H PRN (Reason: Shortness Of Breath) Qty: 8.5 3RF cefazolin 2 gram recon soln 2 g IM Q8H Rx Instructions: x 22 days via PICC LINE insulin aspart U-100 100 unit/mL (3 mL) insulin pen 1 sliding scale dose subcut USEASDIRECTD mirtazapine [Remeron] 30 mg tablet 15 - 30 mg PO DAILY Qty: 30 2RF citalopram 10 mg tablet 10 mg PO DAILY Qty: 30 5RF ondansetron 4 mg tablet,disintegrating 4 mg PO Q8H PRN (Reason: nausea and vomiting) Qty: 30 1RF aspirin 81 mg tablet,delayed release (DR/EC) 81 mg PO HS cyclobenzaprine 5 mg tablet 5 mg PO TID PRN (Reason: Muscle Spasm) Discharge Orders: Discharge Order (Routine); Ordered 09/24/22 Ordered By: Ibrahima Mcduffie Admission Data Admit Date/Time: 09/22/22 11:50 Attending Provider: Ibrahima Mcduffie Admit Provider: Balwinder Adair Primary Care Provider: Robbie Vaca Other Providers: Balwinder Adair Coding Level of Care Code HOSP INP/OBS DISCH >30 MIN Diagnoses Complicated UTI (urinary tract infection) N39.0 Diabetes mellitus E11.00 Diabetes mellitus type: type 2 Diabetes mellitus supervisor intermediates insulin use: without mcfp use Diabetes mellitus complication status: with hyperosmolarity Diabetes mellitus complication detail: without coma Hypomagnesemia E83.42 Hypercalcemia E83.52 Chronic back pain M54.9; G89.29 Dyslipidemia E78.5 Obstructive sleep apnea G47.33 CAD (coronary artery disease) I25.10 Coronary Disease-Associated Artery/Lesion type: unspecified vessel or lesion type [place] vs. transplanted heart: [place] heart Associated angina: without angina Reactive depression (situational) F32.9 Hypertension I10
[2022-09-24] MEDS: CEFEPIME 2,000 MG in SYRINGE 0 ML IV SCH (11:41)
== END 2022-09-24 12:58 | disposition home or self-care (01) ==
LOC: ED 08:14 → 2N 11:50 → INTOOBSV 11:50 → SUATTDRO 11:50 → 2N 20:14

== ENCOUNTER 2022-11-07 08:44 | Observation (INO) ==
[2022-11-07] MEDS ORDERED: SODIUM CHLORIDE 0.9% 1000ML 1,000 ML IV SCH (09:15)
[2022-11-07] MEDS ORDERED: ONDANSETRON INJ 2 MG/ML 2 ML VIAL IV STA (09:15)
[2022-11-07] MEDS ORDERED: ACETAMINOPHEN 1,000 MG/100 ML VIAL IV STA (09:15)
--- NOTE | 2022-11-07 09:23 | Emergency Department Note ---
Impression & Plan Nausea, Headache, UTI (urinary tract infection), Dry heaves ED Provider Note INFORMANT: Patient ED PROVIDER(S): Harinder Chong DO CHIEF COMPLAINT: PLAN: Disposition: Admission Outpatient prescription management: none Discussion with: I spoke with the hospitalist, who will see the patient for adm ission/observation and further evaluation and consultation. Also spoke with ED pharmacist about meds. MEDICAL DECISION MAKING: This is a 67-year-old male who presents to the ED with a chief complaint of chills, dry heaves, headache and some nausea. His symptoms started on Monday. He states that he has had similar symptoms previously related to UTI. He has had a couple of them this year. Has history of bladder cancer. He has a ureterostomy. He states that he change the bag this morning and cleaned the area already. The patient denies any abdominal pains. He has had a little cough that he states that precipitates dry heaves. Otherwise no other acute com plaints. The patient's physical exam was unremarkable. Ureterostomy site appears healthy. No abdominal tenderness. Lungs are clear. No cough during my ED evaluation. His vital signs reveal mild tachycardia with a heart rate of 112. He is afebrile. Ox saturations are normal. Vital signs otherwise unremarkable. Patient's urine suggest possible infection. There is a leukocytosis with a white blood cell count of 12.99. Chemistry panel was unremarkable, kidney function test was normal and glucose is 265. The patient was given IV vancomycin as well as IV gentamicin. He was given some IV Tylenol for symptoms as well as some IV fluids and IV Zofran. He will be seen by the hospitalist for further evaluation and care. Antibiotic dosing was based on previous cultures and sensitivities. Triage Nursing notes reviewed. Vital Signs: reviewed Prior /Outside records reviewed: PCP visit from 10/06/2022 shows acute UTI, left renal abscess, type 2 diabetes. MRI from 09/21/2022 showed no evidence of renal abscess. Differential diagnosis: Differential includes UTI, bacteremia, viral syndrome, dehydration, electrolyte abnormality, other Diagnostics, as interpreted by me: 12 lead ECG: none Cardiac Monitoring ordered: none Medical decision rules: none Imaging studies: none Procedures: none. Critical care: none. HPI: See MDM above. PAST MEDICAL HISTORY: See Below PAST SURGICAL HISTORY: See Below SOCIAL HISTORY: See Below HOME MEDICATIONS: See Below ALLERGIES: See Below VITALS: See Below PHYSICAL EXAMINATION: See MDM for positive findings otherwise unremarkable. CONSTITUTIONAL/VITAL SIGNS: Reviewed GENERAL:done as appropriate INTEGUMENTARY: done as appropriate HEAD: done as appropriate EYES: done as appropriate RESPIRATORY: done as appropriate CARDIOVASCULAR:done as appropriate GI/ABDOMEN:done as appropriate EXTREMITIES: done as appropriate NEUROLOGICAL: done as appropriate PSYCHIATRIC:done as appropriate MUSCULOSKELETAL:done as appropriate TRIAGE NURSING DOCUMENTATION REVIEWED. Past Med/Surg History Medical History Acute exacerbation of chronic low back pain CAD (coronary artery disease) (~2018) Diabetes mellitus Eustachian tube dysfunction High cholesterol History of primary bladder cancer Hypertension Insulin dependent diabetes mellitus Malignant tumor of urinary bladder Sensorineural hearing loss of both ears Tinnitus, bilateral Surgical History History of ankle surgery History of back surgery (03/21/20) L2-S1 fusion History of coronary angioplasty History of urostomy S/P colonoscopy S/P tooth extraction S/P ureteral stent placement Family History Mother Colorectal cancer Heart disease Diabetes Cardiac disorder Myocardial infarction Father Hypertension Myocardial infarction Sister Breast cancer Denies family history of Ovarian cancer Prostate cancer Social History Smoking Status: Former smoker Second Hand Exposure: No; Hx Alcohol Use: No Hx Substance Use: No Preferred Language: Israeli Communication Ability: Effective Visual Impairment: Limited 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 Beliefs That Will Affect Care: None marital status: Current Living Situation: Spouse current occupational status: retired Feels Safe at Home: Yes Childhood Exposure to Second-Hand Smoke: Yes Dental Care, Regularly: Yes Physical Activity Frequency: Daily Seatbelt Use: always Sunscreen Use: Yes Assistive Devices: None Allergies Allergies Allergy/AdvReac Type Severity Reaction Status Date / Time Opioids - Morphine Analogues AdvReac "all kind Verified 10/06/22 09:18 of bad stuff" Home Meds Home Medications Medication Instructions Recorded Confirmed aspirin 81 mg tablet,delayed 81 mg PO HS 12/18/19 10/06/22 release cyclobenzaprine 5 mg tablet 5 mg PO TID PRN Muscle Spasm 04/24/22 10/06/22 insulin aspart U-100 100 unit/mL 1 sliding scale dose subcut 06/29/22 10/06/22 (3 mL) subcutaneous pen USEASDIRECTD Previous Rx's Medication Instructions Recorded albuterol sulfate 90 mcg/actuation 2 puff inhalation Q4H PRN 05/31/21 aerosol inhaler Shortness Of Breath #8.5 grams ondansetron 4 mg disintegrating 4 mg PO Q8H PRN nausea and 09/22/21 tablet vomiting #30 tabs lisinopril 5 mg tablet 5 mg PO QAM #90 tabs 01/12/22 atorvastatin 80 mg tablet 80 mg PO HS #90 tabs 01/27/22 mirtazapine 30 mg tablet (Remeron) 15 - 30 mg PO DAILY #30 tabs 06/06/22 diclofenac sodium 1 % topical gel 2 g topical QID #100 grams 08/04/22 metformin 500 mg 24 hr 1,000 mg PO BID #360 tabs 10/05/22 tablet,extended release citalopram 10 mg tablet 10 mg PO DAILY #30 tabs 10/06/22 gabapentin 800 mg tablet 800 mg PO TID #90 tabs 10/06/22 methenamine hippurate 1 gram tablet 1 g PO BID 30 days #60 tabs 10/19/22 insulin aspart U-100 100 unit/mL 10 unit (0.1 mL) subcut TID #15 mL 10/28/22 (3 mL) subcutaneous pen (Novolog FlexPen U-100 Insulin aspart) insulin detemir U-100 100 unit/mL 55 unit (0.55 mL) subcut QPM #30 mL 10/28/22 (3 mL) subcutaneous pen (Levemir FlexTouch U-100 Insulin) Results & Data (ED) Vital Signs Vital Signs - 24 hr 11/07/22 08:47 Temperature 37.1 C Temperature Source Oral Pulse Rate 112 H Respiratory Rate 20 Respiratory Effort / Characteristics Non-Labored Spontaneous Respiratory Depth Normal Blood Pressure 126/81 Blood Pressure Mean 96 Pulse Oximetry 98 Oxygen Delivery Method Room Air Sepsis New/Unexplained Change in Mental Status N/A Sepsis Action Taken by Nursing No Action Required Laboratory Data 11/07/22 09:26 11/07/22 09:26 Lab Results 11/07/22 11/07/22 11/07/22 Range/Units 09:26 09:26 09:26 WBC 12.99 H (4.8-10.8) K/ul RBC 5.49 (4.70-6.10) M/uL Hgb 17.6 (14.0-18.0) g/dl Hct 49.0 (42.0-52.0) % MCV 89.3 (80.0-100.0) fL MCH 32.1 (25.0-34.0) pg MCHC 35.9 (32.0-36.0) g/dL RDW Std Deviation 42.2 (36.4-46.3) fL RDW Coeff of [place] 13.0 (11.5-14.5) % Plt Count 196 (130-400) K/uL MPV 10.5 (9.4-12.4) fL Immature Gran % (Auto) 2.0 % Neut % (Auto) 80.9 % Lymph % (Auto) 8.3 % [place] % (Auto) 8.5 % Eos % (Auto) 0.1 % Baso % (Auto) 0.2 % Neut # (Auto) 10.51 H (1.40-6.50) K/uL Lymph # (Auto) 1.08 L (1.2-3.4) K/uL [place] # (Auto) 1.10 H (0.11-0.59) K/uL Eos # (Auto) 0.01 (0-0.50) K/uL Baso # (Auto) 0.03 (0-0.2) K/uL Immature Gran # (Auto) 0.26 H (0.01-0.20) K/uL Sodium 136 (136-145) mmol/L Potassium 4.2 (3.5-5.1) mmol/L Chloride 101 (98-107) mmol/L Carbon Dioxide 26 (21-32) mmol/L Anion Gap 9 (3-11) BUN 22 (6-23) mg/dl Creatinine 1.22 (0.6-1.4) mg/dl Est Cr Clr Drug Dosing 67.0 ml/min Est GFR ( Amer) 70.2 ml/min Est GFR (Non-Af Amer) 60.5 ml/min BUN/Creatinine Ratio 18.0 (10-20) Glucose 265 H (70-99(Fasting)) mg/dl Calcium 9.9 (8.5-10.1) mg/dl Total Bilirubin 0.9 (0.2-1.0) mg/dl AST 17 (13-39) U/L ALT 23 (7-52) U/L Alkaline Phosphatase 58 (34-104) U/L Total Protein 8.2 (6.0-8.3) gm/dl Albumin 5.1 H (3.4-5.0) gm/dl Globulin 3.1 (2.5-4.0) gm/dl Albumin/Globulin Ratio 1.6 (0.9-2) Urine Color Dark Yellow Urine Appearance Cloudy A (Clear) Urine pH 7.5 (4.5-7.5) Ur Specific [place] 1.018 (1.000-1.030) Urine Protein 3+ H (Negative) Urine Glucose (UA) Trace H (Negative) Urine Ketones Negative (Negative) Urine Blood 3+ H (Negative) Urine Nitrite Negative (Negative) Urine Bilirubin Negative (Negative) Urine Urobilinogen Negative (Negative) Ur Leukocyte Esterase 1+ H (Negative) Urine WBC (Auto) >30 H (0-5) /hpf Urine RBC (Auto) >30 H (0-4) /hpf U Hyaline Cast (Auto) 1-5 (0-5) /lpf U Epithel Cells (Auto) 5-10 H (0-5) /lpf Urine Bacteria (Auto) Negative (Negative) Administered Medications Discontinued Medications Sodium Chloride (Nss 1000ml) 1,000 mls @ 999 mls/hr IV .Q1H1M SUYAPA Stop: 11/07/22 10:15 Last Admin: 11/07/22 09:33 Dose: 999 mls/hr Documented By: SMITH Acetaminophen (Ofirmev) 1,000 mg in 100 mls @ 400 mls/hr IV NOW STA Stop: 11/07/22 09:29 Last Admin: 11/07/22 09:46 Dose: 400 mls/hr Documented By: SMITH Ondansetron HCl (Ondansetron Inj 2 Mg/Ml 2 Ml Vial) 4 mg IV NOW STA Stop: 11/07/22 09:16 Last Admin: 11/07/22 09:46 Dose: 4 mg Documented By: SMITH Discharge Plan Visit Data Chief Complaint: Urinary Symptoms Stated Complaint: UTI ED Provider: Harinder Chong Discharge Problem: Nausea, Headache, UTI (urinary tract infection), Dry heaves Patient Disposition: Being Evaluated by Hospitalist Forms Stand Alone Forms: My [facility] [address] Prescriptions Prescriptions: No Action lisinopril 5 mg tablet 5 mg PO QAM Qty: 90 1RF atorvastatin 80 mg tablet 80 mg PO HS Qty: 90 3RF Rx Instructions: for cholesterol diclofenac sodium 1 % gel 2 g topical QID Qty: 100 5RF Rx Instructions: apply to single elbow, wrist or hand; for hand includes palm/fingers/back of hand metformin 500 mg tablet,ER velia.retention 24 hr 1,000 mg PO BID Qty: 360 3RF methenamine hippurate 1 gram tablet 1 g PO BID 30 Days Qty: 60 5RF Levemir FlexTouch U-100 Insuln 100 unit/mL (3 mL) insulin pen 55 unit subcut QPM Qty: 30 3RF insulin aspart U-100 [Novolog FlexPen U-100 Insulin] 100 unit/mL (3 mL) insulin pen 10 unit subcut TID Qty: 15 1RF albuterol sulfate 90 mcg/actuation HFA aerosol inhaler 2 puff INH Q4H PRN (Reason: Shortness Of Breath) Qty: 8.5 3RF insulin aspart U-100 100 unit/mL (3 mL) insulin pen 1 sliding scale dose subcut USEASDIRECTD mirtazapine [Remeron] 30 mg tablet 15 - 30 mg PO DAILY Qty: 30 2RF ondansetron 4 mg tablet,disintegrating 4 mg PO Q8H PRN (Reason: nausea and vomiting) Qty: 30 1RF citalopram 10 mg tablet 10 mg PO DAILY Qty: 30 5RF gabapentin 800 mg tablet 800 mg PO TID Qty: 90 5RF aspirin 81 mg tablet,delayed release (DR/EC) 81 mg PO HS cyclobenzaprine 5 mg tablet 5 mg PO TID PRN (Reason: Muscle Spasm) Referrals Referrals: Robbie Vaca DO [Primary Care Provider] -
[2022-11-07 10:08] LABS: Appearance Urine Cloudy (Clear); Bacteria Urine Automated Negative (Negative); Bilirubin Urine Negative (Negative); Blood Urine 3+ (Negative); Color Urine Dark Yellow; Glucose Urine UA Trace (Negative); Ketones Urine Negative (Negative); Leukocyte Esterase Urine 1+ (Negative); Nitrite Urine Negative (Negative); Protein Urine 3+ (Negative); RBC Urine Automated >30 /hpf (0-4); Specific Gravity Urine 1.018 (1.000-1.030); Urobilinogen Urine Negative (Negative); WBC Urine Automated >30 /hpf (0-5); pH Urine 7.5 (4.5-7.5)
[2022-11-07 10:09] LABS: Basophils # (auto) 0.03 K/uL (0-0.2); Basophils % (auto) 0.2 %; Eosinophils # (auto) 0.01 K/uL (0-0.50); Eosinophils % (auto) 0.1 %; Hemoglobin 17.6 g/dl (14.0-18.0); Immature Granulocytes # (auto) 0.26 K/uL (0.01-0.20); Lymphocytes # (auto) 1.08 K/uL (1.2-3.4); Lymphocytes % (auto) 8.3 %; Mean Corpuscular Hemoglobin 32.1 pg (25.0-34.0); Mean Corpuscular Hgb Conc 35.9 g/dL (32.0-36.0); Mean Corpuscular Volume 89.3 fL (80.0-100.0); Mean Platelet Volume 10.5 fL (9.4-12.4); Monocytes % (auto) 8.5 %; Neutrophils # (auto) 10.51 K/uL (1.40-6.50); Neutrophils % (auto) 80.9 %; Platelet Count 196 K/uL (130-400); RDW Standard Deviation 42.2 fL (36.4-46.3); Red Blood Count 5.49 M/uL (4.70-6.10); White Blood Count 12.99 K/ul (4.8-10.8)
[2022-11-07 10:15] LABS: Albumin Globulin Ratio 1.6 (0.9-2); Albumin Level 5.1 gm/dl (3.4-5.0); Bilirubin,Total 0.9 mg/dl (0.2-1.0); Calcium 9.9 mg/dl (8.5-10.1); Est GFR (African American) 70.2 ml/min; Est GFR (Non-African American) 60.5 ml/min; Globulin 3.1 gm/dl (2.5-4.0); Potassium 4.2 mmol/L (3.5-5.1); Total Protein 8.2 gm/dl (6.0-8.3)
[2022-11-07] MEDS ORDERED: GENTAMICIN SULFATE IV ONE (10:46)
[2022-11-07] MEDS ORDERED: VANCOMYCIN HCL 2,250 MG in SODIUM CHLORIDE 0.9% 500 ML IV ONE (10:46)
[2022-11-07] MEDS ORDERED: GENTAMICIN CONSULT ACTIVE PRN (10:46)
[2022-11-07] MEDS ORDERED: DEXTROSE 5% IV ONE (10:46)
[2022-11-07] MEDS ORDERED: VANCOMYCIN CONSULT ACTIVE PRN (10:46)
[2022-11-07] MEDS ORDERED: MEROPENEM 1,000 MG in SYRINGE 0 ML IV STA (10:56)
--- NOTE | 2022-11-07 11:03 | History & Physical Report ---
Date of Service November 07, 2022 Assessment & Plan (1) Complicated UTI (urinary tract infection): Plan: Complicated due to urostomy Previous multiresistant Enterobacter as well as multiple previous organism. Based on resitance pattern will treat with meropenem and daptomycin. Follow up urine and blood cultures. (2) Diabetes mellitus type 2, uncontrolled, with complications: Plan: Usual dosing Novolog 5-10 units with meals, 55 units Levemir at night but took 45 units last night as he hasn't been eating much Will start with Novolog: --Goal BSG Range: Low 110 mg/dL, High 140 mg/dL --Correction Factor: 25 mg/dL/unit --Carbohydrate ratio = 8 g/unit --BSGs ACHS if eating, q6h if npo Defer basal dosing to glycemic pharmacy management (3) Depression: Plan: Continue citalopram (4) CAD (coronary artery disease): Plan: Continue aspirin, atorvastatin (5) Obstructive sleep apnea: Plan: CPAP HS (6) Hypertension: Plan: Continue lisinopril 5mg PO daily Plan VTE Prophylaxis - Lovenox 40mg SQ daily Diet - T2DM Disposition - observation status to med/surg Admission and Anticipated Discharge Date Admission Date: November 08, 2022 History of Present Illness Chief Complaint: Fever Primary Care Provider: Robbie Vaca DO Nishant Anna is a 67 year old male with urostomy who presents to the ER with fever, chills, high glucose, back pain, headache. Similar symptoms with prior UTIs. He reports his symptoms started 2 days ago. progressively getting worse. No objective fever however he has been sweating. He has no concerns with the urostomy site itself and changed the back this morning but has generalized mild pain over his abdomen. No change in bowels. He had a bowel movement this morning, no melena or bright red blood in his stool. No nasal congestion, cough, sinus pain. He does note a headache on top of his head. Allergies Allergy/AdvReac Type Severity Reaction Status Date / Time Opioids - Morphine Analogues AdvReac "all kind Verified 10/06/22 09:18 of bad stuff" Home Medications Medication Instructions Recorded Confirmed Type aspirin 81 mg tablet,delayed 81 mg PO HS 12/18/19 11/07/22 History release albuterol sulfate 90 mcg/actuation 2 puff inhalation Q4H PRN 05/31/21 11/07/22 Rx aerosol inhaler Shortness Of Breath #8.5 grams ondansetron 4 mg disintegrating 4 mg PO Q8H PRN nausea and 09/22/21 11/07/22 Rx tablet vomiting #30 tabs lisinopril 5 mg tablet 5 mg PO QAM #90 tabs 01/12/22 11/07/22 Rx atorvastatin 80 mg tablet 80 mg PO HS #90 tabs 01/27/22 11/07/22 Rx cyclobenzaprine 5 mg tablet 5 mg PO TID PRN Muscle Spasm 04/24/22 11/07/22 History insulin aspart U-100 100 unit/mL 1 sliding scale dose subcut 06/29/22 11/07/22 History (3 mL) subcutaneous pen USEASDIRECTD diclofenac sodium 1 % topical gel 2 g topical QID #100 grams 08/04/22 11/07/22 Rx metformin 500 mg 24 hr 1,000 mg PO BID #360 tabs 10/05/22 11/07/22 Rx tablet,extended release citalopram 10 mg tablet 10 mg PO DAILY #30 tabs 10/06/22 11/07/22 Rx gabapentin 800 mg tablet 800 mg PO TID #90 tabs 10/06/22 11/07/22 Rx methenamine hippurate 1 gram tablet 1 g PO BID 30 days #60 tabs 10/19/22 11/07/22 Rx insulin aspart U-100 100 unit/mL 10 unit (0.1 mL) subcut TID #15 mL 10/28/22 11/07/22 Rx (3 mL) subcutaneous pen (Novolog FlexPen U-100 Insulin aspart) insulin detemir U-100 100 unit/mL 55 unit (0.55 mL) subcut QPM #30 mL 10/28/22 11/07/22 Rx (3 mL) subcutaneous pen (Levemir FlexTouch U-100 Insulin) Past Med/Surg History Medical History (Updated 11/08/22 @ 03:38 by Balwinder Adair MD) Acute exacerbation of chronic low back pain CAD (coronary artery disease) (~2018) Chronic back pain Diabetes mellitus Dyslipidemia Eustachian tube dysfunction High cholesterol History of primary bladder cancer Hypertension Insulin dependent diabetes mellitus Malignant tumor of urinary bladder Obstructive sleep apnea Reactive depression (situational) Sensorineural hearing loss of both ears Tinnitus, bilateral Surgical History History of ankle surgery History of back surgery (03/21/20) L2-S1 fusion History of coronary angioplasty History of urostomy S/P colonoscopy S/P tooth extraction S/P ureteral stent placement Family History Mother Colorectal cancer Heart disease Diabetes Cardiac disorder Myocardial infarction Father Hypertension Myocardial infarction Sister Breast cancer Denies family history of Ovarian cancer Prostate cancer Social History Smoking Status: Former smoker Second Hand Exposure: No; Do You Dip or Chew Tobacco: No; Hx Alcohol Use: Yes Alcohol type: hard liquor Hx Substance Use: No Preferred Language: Bulgarian Communication Ability: Effective Visual Impairment: Limited Hearing Ability: Normal [place] Labels Required: No Beliefs That Will Affect Care: None marital status: Current Living Situation: Spouse current occupational status: retired Other Information That Helps Us Care for You: No Feels Safe at Home: Yes Safety Concerns: Feels Safe At This Time Childhood Exposure to Second-Hand Smoke: Yes Dental Care, Regularly: Yes Physical Activity Frequency: Daily Seatbelt Use: always Sunscreen Use: Yes Assistive Devices: Glasses Review of Systems Review of Systems: All systems reviewed & are unremarkable except as noted in HPI & below Physical Exam Constitutional: WD/WN, vitals as above Eyes: + anicteric sclerae; normal pupil size ENMT: Mouth: oral mucous membranes not dry Respiratory: normal respiratory effort, lungs clear to auscultation Cardiovascular: RRR, no murmur, no edema Gastrointestinal (Abdomen): Inspection/Auscultation: normal bowel sounds; abdomen not distended Percussion/Palpation: + abdomen tender (generalized) and abdomen soft; no guarding and abdomen not rigid Urostomy pink appearing, no surrounding cellulitis Musculoskeletal: no cyanosis or clubbing, extremities motor strength 5/5 Skin: no rashes, warm and dry Neurologic: awake; not confused Psychiatric: A+Ox3, euthymic affect Results & Data Results & Data ([facility]) Vital Signs (Past 12 Hours) Vital Signs Temp Pulse Resp BP Pulse Ox O2 Del Method 11/07/22 08:47 37.1 C 112 H 20 126/81 98 Room Air Laboratory Results Abnormal lab results 11/07/22 11/07/22 11/07/22 Range/Units 09:26 09:26 09:26 WBC 12.99 H (4.8-10.8) K/ul Neut # (Auto) 10.51 H (1.40-6.50) K/uL Lymph # (Auto) 1.08 L (1.2-3.4) K/uL [place] # (Auto) 1.10 H (0.11-0.59) K/uL Immature Gran # (Auto) 0.26 H (0.01-0.20) K/uL Glucose 265 H (70-99(Fasting)) mg/dl Albumin 5.1 H (3.4-5.0) gm/dl Urine Appearance Cloudy A (Clear) Urine Protein 3+ H (Negative) Urine Glucose (UA) Trace H (Negative) Urine Blood 3+ H (Negative) Ur Leukocyte Esterase 1+ H (Negative) Urine WBC (Auto) >30 H (0-5) /hpf Urine RBC (Auto) >30 H (0-4) /hpf U Epithel Cells (Auto) 5-10 H (0-5) /lpf Medications Administered ER Medications Given: NSS 1L bolus Ondansetron 4mg IV Acetaminophen 1g IV Gentamicin and Vancomycin orders discontinued Code Status & VTE Plan Code Status Full VTE Prophylaxis Plan VTE Prophylaxis will be ordered: Yes PG Care Time/CCT Total # of Minutes Spent Total Time Spent with Patient: Total time spent is greater than 50% in coordination of care (as documented) at patient's floor/unit and/or counseling patient: Coding Level of Care Code 24169 INT INP/OBS CARE 2/55MIN Diagnoses Complicated UTI (urinary tract infection) N39.0 Diabetes mellitus type 2, uncontrolled, with complications E11.8; E11.65 Depression F32.A CAD (coronary artery disease) I25.10 Coronary Disease-Associated Artery/Lesion type: unspecified vessel or lesion type [place] vs. transplanted heart: [place] heart Associated angina: without angina Obstructive sleep apnea G47.33 Hypertension I10 (4) CAD (coronary artery disease) Coronary Disease-Associated Artery/Lesion type: unspecified vessel or lesion type [place] vs. transplanted heart: [place] heart Associated angina: without angina Qualified Code(s): I25.10 - Atherosclerotic heart disease of [place] coronary artery without angina pectoris
[2022-11-07] MEDS ORDERED: MEROPENEM 500 MG in SYRINGE 0 ML IV STA (11:05)
[2022-11-07] MEDS: DAPTOmycin 300 MG in SYRINGE 0 ML IV SCH (11:33)
[2022-11-07] MEDS ORDERED: PHARMACY GLYCEMIC MGMT CONSULT PRN (13:18)
[2022-11-07] MEDS ORDERED: GLUCOSE 40% GEL 15 GM TUBE PO PRN (13:18)
[2022-11-07] MEDS ORDERED: DEXTROSE 50% 50 ML SYRINGE IV PRN (13:18)
[2022-11-07] MEDS ORDERED: GLUCOSE 10 TAB/TUBE PO PRN (13:18)
[2022-11-07] MEDS ORDERED: GLUCAGON FOR INJ 1 MG VIAL SQ PRN (13:18)
[2022-11-07] MEDS ORDERED: CYCLOBENZAPRINE HCL 5 MG TAB PO PRN (13:18)
[2022-11-07] MEDS ORDERED: ONDANSETRON INJ 2 MG/ML 2 ML VIAL IV PRN (13:18)
[2022-11-07] MEDS ORDERED: ACETAMINOPHEN 325 MG TAB PO PRN (13:18)
[2022-11-07] MEDS ORDERED: CARBOHYDRATES FOR HYPOGLYCEMIA PO PRN (13:18)
[2022-11-07] MEDS: LACTATED RINGER'S 1,000 ML IV SCH ×2 (13:36→22:00)
--- NOTE | 2022-11-07 14:14 | Pharmacy Report ---
Pharmacy Glycemic Short Note 2 - Date of Service November 07, 2022 - Glycemic Short BSG Results (Last 24 hours): 11/07/22 11/07/22 09:26 13:17 Glucose 265 H POC Glucose 160 H OUTPATIENT ANTIDIABETIC REGIMEN: * Levemir 55 units HS, Novolog 10 units TID, Metformin 1 gm BID ASSESSMENT: * Patient admitted with complicated UTI * Will start weight based novolog stress of 2 with lantus scale for PM * Overnight checks PLAN FOR INPATIENT GLYCEMIC CONTROL: * Hold outpatient oral diabetes medications * Basal insulin * Lantus 32/50 units HS x1; reassess in AM * Bolus insulin * NovoLog per scale ACHS or Q6hrs while NPO * Goal Range: Low 110 mg/dL - High 140 mg/dL * Correction Factor: 25 mg/dL/unit * Nutritional / Prandial insulin per carb ratio of 1 unit per 8 grams CHO consumed
[2022-11-07] MEDS: DICLOFENAC SOD 1% GEL 100 GM TUBE EXT SCH ×3 (15:05→20:21)
[2022-11-07] MEDS: GABAPENTIN 800 MG TAB PO SCH ×2 (15:05→20:21)
[2022-11-07] MEDS: MEROPENEM 500 MG in SYRINGE 0 ML IV SCH ×2 (17:14→23:47)
[2022-11-07] MEDS: INSULIN ASPART PER UNIT CHARGE SC SCH ×3 (17:32→23:52)
[2022-11-07] MEDS: ASPIRIN 81 MG ECTAB PO SCH (20:21)
[2022-11-07] MEDS ORDERED: LANTUS PER UNIT CHARGE SQ SCH (21:00)
[2022-11-08] MEDS: INSULIN ASPART PER UNIT CHARGE SC SCH ×6 (00:01→20:59)
[2022-11-08] MEDS: MEROPENEM 500 MG in SYRINGE 0 ML IV SCH ×3 (05:16→18:00)
[2022-11-08] MEDS: LACTATED RINGER'S 1,000 ML IV SCH (05:17)
[2022-11-08 08:04] LABS: Basophils # (auto) 0.02 K/uL (0-0.2); Basophils % (auto) 0.2 %; Eosinophils # (auto) 0.03 K/uL (0-0.50); Eosinophils % (auto) 0.3 %; Hematocrit (blood only) 45.4 % (42.0-52.0); Immature Granulocytes # (auto) 0.04 K/uL (0.01-0.20); Immature Granulocytes % (auto) 0.5 %; Lymphocytes # (auto) 1.32 K/uL (1.2-3.4); Lymphocytes % (auto) 15.3 %; Mean Corpuscular Hemoglobin 31.9 pg (25.0-34.0); Mean Corpuscular Hgb Conc 35.2 g/dL (32.0-36.0); Mean Corpuscular Volume 90.6 fL (80.0-100.0); Mean Platelet Volume 10.7 fL (9.4-12.4); Monocytes # (auto) 0.92 K/uL (0.11-0.59); Monocytes % (auto) 10.6 %; Neutrophils # (auto) 6.31 K/uL (1.40-6.50); Neutrophils % (auto) 73.1 %; Platelet Count 165 K/uL (130-400); RDW Coefficient of Variation 13.2 % (11.5-14.5); RDW Standard Deviation 42.6 fL (36.4-46.3); Red Blood Count 5.01 M/uL (4.70-6.10); White Blood Count 8.64 K/ul (4.8-10.8)
[2022-11-08 08:20] LABS: BUN Creatinine Ratio 16.5 (10-20); Calcium 9.1 mg/dl (8.5-10.1); Creatinine Clr Calc Pharmacy 71.1 ml/min; Est GFR (African American) 75.4 ml/min; Magnesium 1.5 mg/dl (1.7-2.4); Potassium 3.8 mmol/L (3.5-5.1)
[2022-11-08 08:21] LABS: Estimated Average Glucose 166 mg/dl; Hemoglobin A1C 7.4 % (4.5-5.6)
[2022-11-08] MEDS: CITALOPRAM 20 MG TAB PO SCH (08:33)
[2022-11-08] MEDS: GABAPENTIN 800 MG TAB PO SCH ×3 (08:35→20:39)
[2022-11-08] MEDS: lisinopril 5 MG TAB PO SCH (08:35)
[2022-11-08] MEDS: ENOXAPARIN INJ 40 MG/0.4 ML SYR SQ SCH (08:57)
[2022-11-08] MEDS: DICLOFENAC SOD 1% GEL 100 GM TUBE EXT SCH ×4 (09:00→20:39)
[2022-11-08] MEDS ORDERED: LANTUS PER UNIT CHARGE SQ SCH (09:00)
--- NOTE | 2022-11-08 09:05 | Pharmacy Report ---
Pharmacy Glycemic Short Note 2 - Date of Service November 08, 2022 - Glycemic Short BSG Results (Last 24 hours): 11/07/22 11/07/22 11/07/22 09:26 13:17 17:05 Glucose 265 H POC Glucose 160 H 190 H 11/07/22 11/07/22 11/08/22 20:26 23:46 03:55 Glucose POC Glucose 129 H 141 H 133 H 11/08/22 11/08/22 07:19 08:03 Glucose 166 H POC Glucose 165 H OUTPATIENT ANTIDIABETIC REGIMEN: * Levemir 55 units HS, Novolog 10 units TID, Metformin 1 gm BID HbA1c: 7.4% (11/08/22) ASSESSMENT: 11/08/22: * BSGs trended down nicely yesterday following glycemic consult * Received 42 units of insulin (32 units of basal and 10 units of prandial/correctional bolus) * Continues on meropenem and daptomycin pending culture results * Slight increase in basal and tightening of bolus today 11/07/22: * Patient admitted with complicated UTI * Will start weight based novolog stress of 2 with lantus scale for PM * Overnight checks PLAN FOR INPATIENT GLYCEMIC CONTROL: * Hold outpatient oral diabetes medications * Basal insulin * Lantus 16-20 units SC BID (see EHR for details) * Bolus insulin * NovoLog per scale ACHS or Q6hrs while NPO * Goal Range: Low 110 mg/dL - High 140 mg/dL * Correction Factor: 20 mg/dL/unit * Nutritional / Prandial insulin per carb ratio of 1 unit per 7 grams CHO consumed
[2022-11-08] MEDS: DAPTOmycin 300 MG in SYRINGE 0 ML IV SCH (10:06)
--- NOTE | 2022-11-08 10:24 | Urology Consultation ---
Date of Consultation November 08, 2022 Assessment & Plan (1) Complicated UTI (urinary tract infection): 67 yo M with a hx of of high-grade muscle invasive bladder cancer status post radical cystectomy with ileal conduit diversion admitted with complicated UTI. - Pt afebrile and hemodynamically stable. - Subjectively improved today. - Labs reviewedcreatinine 1.15, WBC 8.64. - Urine culture prelim pin point growth, reincubating; blood cultures no growth x 24 hours. - Previous urine culture grew out Enterobacter and Coag neg staph. - Continue broad spectrum antibiotics and tailor per sensitivities as culture data becomes available. - Urostomy is patent and draining appropriately. - No acute intervention indicated at this time. - Continue supportive care, antibiotics and medical management per hospital medicine. - If patient clinically deteriorates despite antibiotics, then recommend CT imaging for further evaluation. - Will arrange outpatient f/u with our service. - will follow peripherally. History of Present Illness Attending Physician: Delvin Zaman History of Present Illness 67 year-old male with a history of high-grade muscle invasive bladder cancer status post radical cystectomy with ileal conduit diversion admitted with complicated UTI. On arrival he was afebrile. Tachycardic, normotensive. Lab work independently reviewed. CBC revealed mild leukocytosis of 12.99, hemoglobin 17.6. Chemistry showed a creatinine of 1.22. Urinalysis showed 3+ protein, trace glucose, 3+ blood, 1+ LE, >30 WBC, >30 RBC, 5-10 epithelials, negative for bacteria and nitrates. He was treated with IV vancomycin, IV gentamicin, IV fluids, acetaminophen and ondansetron in ED. He was admitted to the hospital medicine service. Urology is consulted for complicated UTI. Patient is well-known to our office, follows with Dr. Vaca. History of UTIs as well as renal abscess requiring drainage in the past. Chart review: Afebrile, labs reviewed -creatinine 1.15, WBC 8.64, hemoglobin 16.0. Urine and blood cultures are pending. Currently on daptomycin and meropenem. Patient seen and examined at bedside this morning. He is awake, alert and resting in bed. He reports feeling much better since arrival. He denies flank, abdominal or suprapubic discomfort. Urostomy is draining appropriately with clear yellow urine. He reports he changed urostomy bag prior to arriving at hospital. Tolerating p.o. intake. No nausea or vomiting. No fever or chills. No additional concerns at this time. Allergies Allergy/AdvReac Type Severity Reaction Status Date / Time Opioids - Morphine Analogues AdvReac "all kind Verified 10/06/22 09:18 of bad stuff" Home Medications Medication Instructions Recorded Confirmed Type aspirin 81 mg tablet,delayed 81 mg PO HS 12/18/19 11/07/22 History release albuterol sulfate 90 mcg/actuation 2 puff inhalation Q4H PRN 05/31/21 11/07/22 Rx aerosol inhaler Shortness Of Breath #8.5 grams ondansetron 4 mg disintegrating 4 mg PO Q8H PRN nausea and 09/22/21 11/07/22 Rx tablet vomiting #30 tabs lisinopril 5 mg tablet 5 mg PO QAM #90 tabs 01/12/22 11/07/22 Rx atorvastatin 80 mg tablet 80 mg PO HS #90 tabs 01/27/22 11/07/22 Rx cyclobenzaprine 5 mg tablet 5 mg PO TID PRN Muscle Spasm 04/24/22 11/07/22 History insulin aspart U-100 100 unit/mL 1 sliding scale dose subcut 06/29/22 11/07/22 History (3 mL) subcutaneous pen USEASDIRECTD diclofenac sodium 1 % topical gel 2 g topical QID #100 grams 08/04/22 11/07/22 Rx metformin 500 mg 24 hr 1,000 mg PO BID #360 tabs 10/05/22 11/07/22 Rx tablet,extended release citalopram 10 mg tablet 10 mg PO DAILY #30 tabs 10/06/22 11/07/22 Rx gabapentin 800 mg tablet 800 mg PO TID #90 tabs 10/06/22 11/07/22 Rx methenamine hippurate 1 gram tablet 1 g PO BID 30 days #60 tabs 10/19/22 11/07/22 Rx insulin aspart U-100 100 unit/mL 10 unit (0.1 mL) subcut TID #15 mL 10/28/22 11/07/22 Rx (3 mL) subcutaneous pen (Novolog FlexPen U-100 Insulin aspart) insulin detemir U-100 100 unit/mL 55 unit (0.55 mL) subcut QPM #30 mL 10/28/22 11/07/22 Rx (3 mL) subcutaneous pen (Levemir FlexTouch U-100 Insulin) Patient History Medical History Acute exacerbation of chronic low back pain CAD (coronary artery disease) (~2018) Chronic back pain Diabetes mellitus Dyslipidemia Eustachian tube dysfunction High cholesterol History of primary bladder cancer Hypertension Insulin dependent diabetes mellitus Malignant tumor of urinary bladder Obstructive sleep apnea Reactive depression (situational) Sensorineural hearing loss of both ears Tinnitus, bilateral Surgical History History of ankle surgery History of back surgery (03/21/20) L2-S1 fusion History of coronary angioplasty History of urostomy S/P colonoscopy S/P tooth extraction S/P ureteral stent placement Family History Mother Colorectal cancer Heart disease Diabetes Cardiac disorder Myocardial infarction Father Hypertension Myocardial infarction Sister Breast cancer Denies family history of Ovarian cancer Prostate cancer Social History Smoking Status: Former smoker Second Hand Exposure: No; Do You Dip or Chew Tobacco: No; Hx Alcohol Use: Yes Alcohol type: hard liquor Hx Substance Use: No Preferred Language: Turkmen Communication Ability: Effective Visual Impairment: Limited Hearing Ability: Normal 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 Beliefs That Will Affect Care: None marital status: Current Living Situation: Spouse current occupational status: retired Other Information That Helps Us Care for You: No Feels Safe at Home: Yes Safety Concerns: Feels Safe At This Time Childhood Exposure to Second-Hand Smoke: Yes Dental Care, Regularly: Yes Physical Activity Frequency: Daily Seatbelt Use: always Sunscreen Use: Yes Assistive Devices: Glasses Review of Systems Review of Systems: All systems reviewed & are unremarkable except as noted in HPI & below Physical Exam Constitutional: well developed and well nourished; no acute distress and not ill appearing Eyes: no scleral abnormality Respiratory: normal respiratory effort; no respiratory distress and no labored breathing Gastrointestinal (Abdomen): Inspection/Auscultation: abdomen normal to inspection; abdomen not distended Percussion/Palpation: abdomen soft; abdomen nontender and no guarding Musculoskeletal: Head/Neck/Chest: normocephalic and head atraumatic Neurologic: moves all extremities and awake Psychiatric: Orientation: alert and oriented x 3 Genitourinary: Diverting ostomy in place, urine clear yellow. Stoma pink and healthy. Results & Data ([facility]) Vital Signs (Past 12 Hours) Vital Signs Temp Pulse Resp BP Pulse Ox O2 Del Method 11/08/22 07:17 36.8 C 75 18 141/95 H 97 Room Air PG Care Time/CCT Total # of Minutes Spent Total Time Spent with Patient: Total time spent is greater than 50% in coordination of care (as documented) at patient's floor/unit and/or counseling patient: Coding Level of Care Code 19027 IN/OBS CONSULT LVL 3,45M Diagnoses Complicated UTI (urinary tract infection) N39.0
[2022-11-08] MEDS: ASPIRIN 81 MG ECTAB PO SCH (20:39)
[2022-11-08] MEDS: LANTUS PER UNIT CHARGE SQ SCH (20:59)
--- NOTE | 2022-11-08 22:26 | Electrocardiogram Report ---
Test Reason : Blood Pressure : / mmHG Vent. Rate : 075 BPM Atrial Rate : 075 BPM P-R Int : 162 ms QRS Dur : 074 ms QT Int : 380 ms P-R-T Axes : 027 012 029 degrees QTc Int : 424 ms Normal sinus rhythm Normal ECG When compared with ECG of 22-SEP-2022 08:49, No significant change was found Confirmed by Brian Elizabeth ([id number]) on 11/08/2022 10:26:13 PM Referred By: REFERRED SELF Confirmed By:Brian Elizabeth
--- NOTE | 2022-11-08 22:34 | Hospitalist Progress Note ---
Date of Service November 08, 2022 Assessment & Plan (1) Complicated UTI (urinary tract infection): Plan: Complicated due to urostomy Previous multiresistant Enterobacter as well as multiple previous organism. Based on resitance pattern will treat with meropenem and daptomycin. Follow up urine and blood cultures. continue current antibiotics on 11/08. Patient appears to be improving. Reviewed labs and imaging (2) Diabetes mellitus type 2, uncontrolled, with complications: Plan: Usual dosing Novolog 5-10 units with meals, 55 units Levemir at night but took 45 units last night as he hasn't been eating much Will start with Novolog: --Goal BSG Range: Low 110 mg/dL, High 140 mg/dL --Correction Factor: 25 mg/dL/unit --Carbohydrate ratio = 8 g/unit --BSGs ACHS if eating, q6h if npo Defer basal dosing to glycemic pharmacy management (3) Depression: Plan: Continue citalopram (4) CAD (coronary artery disease): Plan: Continue aspirin, atorvastatin (5) Obstructive sleep apnea: Plan: CPAP HS (6) Hypertension: Plan: Continue lisinopril 5mg PO daily Plan VTE Prophylaxis - Lovenox 40mg SQ daily Diet - T2DM Disposition - observation status to med/surg Admission and Anticipated Discharge Date Admission Date: November 08, 2022 Subjective Patient reports feeling much better today. He has no new symptoms. Review of Systems Review of Systems: All systems reviewed & are unremarkable except as noted in HPI & below Physical Exam Physical Exam: Constitutional: WD/WN, vitals as above Eyes: + anicteric sclerae; normal pupil size ENMT: Mouth: oral mucous membranes not dry Respiratory: normal respiratory effort, lungs clear to auscultation Cardiovascular: RRR, no murmur, no edema Gastrointestinal (Abdomen): Inspection/Auscultation: normal bowel sounds; abdomen not distended Percussion/Palpation: abdomen is nontender Urostomy pink appearing, no surrounding cellulitis Musculoskeletal: no cyanosis or clubbing, extremities motor strength 5/5 Skin: no rashes, warm and dry Neurologic: awake; not confused Psychiatric: A+Ox3, euthymic affect Results & Data Results & Data ([facility]) Vital Signs (Past 12 Hours) Vital Signs Temp Pulse Pulse Resp BP Pulse Ox O2 Del Method 11/08/22 20:33 37.5 C 78 18 126/74 96 Room Air 11/08/22 16:00 37 C 75 18 120/80 95 Room Air PG Care Time/CCT Total # of Minutes Spent Total Time Spent with Patient: Total time spent is greater than 50% in coordination of care (as documented) at patient's floor/unit and/or counseling patient: Coding Level of Care Code 82347 SUB INP/OBS CARE 2/35MIN Diagnoses Complicated UTI (urinary tract infection) N39.0 Diabetes mellitus type 2, uncontrolled, with complications E11.8; E11.65 Depression F32.A CAD (coronary artery disease) I25.10 Associated angina: without angina Coronary Disease-Associated Artery/Lesion type: unspecified vessel or lesion type [place] vs. transplanted heart: [place] heart Obstructive sleep apnea G47.33 Hypertension I10 (4) CAD (coronary artery disease) Associated angina: without angina Coronary Disease-Associated Artery/Lesion type: unspecified vessel or lesion type [place] vs. transplanted heart: tribal heart Qualified Code(s): I25.10 - Atherosclerotic heart disease of [place] coronary artery without angina pectoris
[2022-11-09] MEDS: MEROPENEM 500 MG in SYRINGE 0 ML IV SCH ×4 (00:01→18:02)
[2022-11-09] MEDS: CITALOPRAM 20 MG TAB PO SCH (07:49)
[2022-11-09] MEDS: GABAPENTIN 800 MG TAB PO SCH ×3 (07:49→21:29)
[2022-11-09] MEDS: lisinopril 5 MG TAB PO SCH (07:49)
[2022-11-09] MEDS: ENOXAPARIN INJ 40 MG/0.4 ML SYR SQ SCH (07:50)
[2022-11-09] MEDS: DICLOFENAC SOD 1% GEL 100 GM TUBE EXT SCH ×4 (07:50→21:29)
[2022-11-09] MEDS: INSULIN ASPART PER UNIT CHARGE SC SCH ×4 (08:40→21:07)
[2022-11-09 08:41] LABS: Hemoglobin 16.5 g/dl (14.0-18.0); Mean Corpuscular Hemoglobin 32.5 pg (25.0-34.0); Mean Corpuscular Hgb Conc 35.9 g/dL (32.0-36.0); Mean Corpuscular Volume 90.7 fL (80.0-100.0); Mean Platelet Volume 10.7 fL (9.4-12.4); Platelet Count 162 K/uL (130-400); RDW Coefficient of Variation 13.1 % (11.5-14.5); RDW Standard Deviation 42.8 fL (36.4-46.3); Red Blood Count 5.07 M/uL (4.70-6.10); White Blood Count 7.27 K/ul (4.8-10.8)
[2022-11-09] MEDS: LANTUS PER UNIT CHARGE SQ SCH (08:43)
[2022-11-09 09:02] LABS: BUN Creatinine Ratio 16.9 (10-20); Calcium 9.4 mg/dl (8.5-10.1); Creatinine Clr Calc Pharmacy 69.3 ml/min; Est GFR (African American) 73.1 ml/min; Potassium 3.8 mmol/L (3.5-5.1)
[2022-11-09] MEDS: DAPTOmycin 300 MG in SYRINGE 0 ML IV SCH (12:20)
--- NOTE | 2022-11-09 14:27 | Pharmacy Report ---
Pharmacy Glycemic Short Note 2 - Date of Service November 09, 2022 - Glycemic Short BSG Results (Last 24 hours): 11/08/22 11/08/22 11/09/22 17:10 20:29 07:32 Glucose 152 H POC Glucose 105 H 157 H 11/09/22 11/09/22 08:20 12:22 Glucose POC Glucose 168 H 113 H OUTPATIENT ANTIDIABETIC REGIMEN: * Levemir 55 units HS, Novolog 10 units TID, Metformin 1 gm BID HbA1c: 7.4% (11/08/22) ASSESSMENT: 11/09/22: * bsgS 105-199 mg/dL yesterday, received 5 5units of insulin (32 units of basal) * Fasting 168 mg/dL, slight increase in basal to get in goal range. 11/08/22: * BSGs trended down nicely yesterday following glycemic consult * Received 42 units of insulin (32 units of basal and 10 units of prandial/correctional bolus) * Continues on meropenem and daptomycin pending culture results * Slight increase in basal and tightening of bolus today 11/07/22: * Patient admitted with complicated UTI * Will start weight based novolog stress of 2 with lantus scale for PM * Overnight checks PLAN FOR INPATIENT GLYCEMIC CONTROL: * Hold outpatient oral diabetes medications * Basal insulin * Lantus 20 units SC BID (see EHR for details) * Bolus insulin * NovoLog per scale ACHS or Q6hrs while NPO * Goal Range: Low 110 mg/dL - High 140 mg/dL * Correction Factor: 20 mg/dL/unit * Nutritional / Prandial insulin per carb ratio of 1 unit per 7 grams CHO consumed
--- NOTE | 2022-11-09 16:51 | Ultrasound Report ---
ULTRASOUND KIDNEYS AND BLADDER CLINICAL HISTORY: Renal abscess. COMPARISON STUDY: Abdominal CT dated 09/04/2022 TECHNIQUE: Real-time, grayscale, and color flow sonography of the kidneys and bladder is performed. I mages are reviewed in the transverse and longitudinal planes. FINDINGS: Kidneys: The kidneys are normal in size and echotexture. The right kidney measures 11.7 cm in length and the left kidney measures 12.8 cm in length. There is no hydronephrosis. No shadowing renal calcu li are identified. Small bilateral renal cysts measure up to 1.9 cm. There is no sonographic evidence of renal abscess. There is no sonographic evidence of solid renal mass lesion. No perinephric fluid is identified. Bladder: The bladder is surgically absent. IMPRESSION: 1. The kidneys are normal in size and without hydronephrosis. 2. Bilateral renal cysts are similar to previous. 3. There is no sonographic evidence of renal abscess. 4. The bladder is surgically absent. ACT 112: Negative or not required by law. Electronically signed by: Tino Pandey M.D. 11/09/2022 4:49 PM
[2022-11-09] MEDS ORDERED: DOCUSATE SODIUM 100 MG CAP PO ONE (18:38)
[2022-11-09] MEDS ORDERED: LANTUS PER UNIT CHARGE SQ SCH (21:00)
[2022-11-09] MEDS ORDERED: LANTUS PER UNIT CHARGE SQ ONE (21:17)
[2022-11-09] MEDS: ASPIRIN 81 MG ECTAB PO SCH (21:29)
--- NOTE | 2022-11-09 22:54 | Hospitalist Progress Note ---
Date of Service November 09, 2022 Assessment & Plan (1) Complicated UTI (urinary tract infection): Plan: Complicated due to urostomy Previous multiresistant Enterobacter as well as multiple previous organism. Based on resistance pattern will treat with meropenem and daptomycin. STopped daptomycin as likely contamination. Urine culture initally not being run as it showed 3 organisms, however called micro lab and they will run cultures. Patient has had a complicated course, renal abscess in June 20[address] [facility]. Patient then had a UTI in early Aug, showed. E. clocae and was treated with cipro as it was sensitive. Patient was treated for 2 courses as per patient, andreturned later in Aug which showed same organism but now resistant to FQ. Patient though was discharged on cipro. Then treated in outpatient setting with macrobid. Patient has been responding to meropenem here and will likely require an extensive course due to his anatomy and recurrent UTIs. will need to treat as a complicated UTI. will consult ID. Appreciate input from Urology will likely need a PICC line. US of kidney to assess for abscess. Reviewed labs and imaging (2) Diabetes mellitus type 2, uncontrolled, with complications: Plan: Usual dosing Novolog 5-10 units with meals, 55 units Levemir at night but took 45 units last night as he hasn't been eating much Will start with Novolog: --Goal BSG Range: Low 110 mg/dL, High 140 mg/dL --Correction Factor: 25 mg/dL/unit --Carbohydrate ratio = 8 g/unit --BSGs ACHS if eating, q6h if npo Defer basal dosing to glycemic pharmacy management (3) Depression: Plan: Continue citalopram (4) CAD (coronary artery disease): Plan: Continue aspirin, atorvastatin (5) Obstructive sleep apnea: Plan: CPAP HS (6) Hypertension: Plan: Continue lisinopril 5mg PO daily Plan VTE Prophylaxis - Lovenox 40mg SQ daily Diet - T2DM Admission and Anticipated Discharge Date Admission Date: November 08, 2022 Subjective Patient reports feeling better. He is frustrated by the recurrent UTI> Review of Systems Review of Systems: All systems reviewed & are unremarkable except as noted in HPI & below Physical Exam Physical Exam: Constitutional: WD/WN, vitals as above Eyes: + anicteric sclerae; normal pupil size ENMT: Mouth: oral mucous membranes not dry Respiratory: normal respiratory effort, lungs clear to auscultation Cardiovascular: RRR, no murmur, no edema Gastrointestinal (Abdomen): Inspection/Auscultation: normal bowel sounds; abdomen not distendedIlio conduit noted on right abdomen. Percussion/Palpation: abdomen is nontender Urostomy pink appearing, no surrounding cellulitis Musculoskeletal: no cyanosis or clubbing, extremities motor strength 5/5 Skin: no rashes, warm and dry Neurologic: awake; not confused Psychiatric: A+Ox3, euthymic affect Results & Data Results & Data Vital Signs (Past 12 Hours) Vital Signs Temp Pulse Resp BP Pulse Ox O2 Del Method 11/09/22 15:36 37.2 C 80 18 137/85 96 Room Air PG Care Time/CCT Total # of Minutes Spent Total Time Spent with Patient: Total time spent is greater than 50% in coordination of care (as documented) at patient's floor/unit and/or counseling patient: Coding Level of Care Code 40689 SUB INP/OBS CARE 3/50MIN Diagnoses Complicated UTI (urinary tract infection) N39.0 Diabetes mellitus type 2, uncontrolled, with complications E11.8; E11.65 Depression F32.A CAD (coronary artery disease) I25.10 Associated angina: without angina Coronary Disease-Associated Artery/Lesion type: unspecified vessel or lesion type [place] vs. transplanted heart: [place] heart Obstructive sleep apnea G47.33 Hypertension I10 Time Spent (min) 55 (4) CAD (coronary artery disease) Associated angina: without angina Coronary Disease-Associated Artery/Lesion type: unspecified vessel or lesion type [place] vs. transplanted heart: [place] heart Qualified Code(s): I25.10 - Atherosclerotic heart disease of [place] coronary artery without angina pectoris
[2022-11-10] MEDS: MEROPENEM 500 MG in SYRINGE 0 ML IV SCH ×4 (00:17→18:26)
[2022-11-10 08:52] LABS: Hematocrit (blood only) 47.6 % (42.0-52.0); Hemoglobin 16.8 g/dl (14.0-18.0); Mean Corpuscular Hemoglobin 32.3 pg (25.0-34.0); Mean Corpuscular Hgb Conc 35.3 g/dL (32.0-36.0); Mean Corpuscular Volume 91.5 fL (80.0-100.0); Mean Platelet Volume 10.6 fL (9.4-12.4); Platelet Count 177 K/uL (130-400); RDW Coefficient of Variation 13.1 % (11.5-14.5); RDW Standard Deviation 43.4 fL (36.4-46.3); White Blood Count 8.63 K/ul (4.8-10.8)
[2022-11-10] MEDS: INSULIN ASPART PER UNIT CHARGE SC SCH ×3 (08:59→18:18)
[2022-11-10] MEDS ORDERED: DOCUSATE SODIUM 100 MG CAP PO SCH (09:00)
[2022-11-10] MEDS ORDERED: LANTUS PER UNIT CHARGE SQ SCH (09:00)
[2022-11-10] MEDS: CITALOPRAM 20 MG TAB PO SCH (09:05)
[2022-11-10] MEDS: GABAPENTIN 800 MG TAB PO SCH ×2 (09:07→15:36)
[2022-11-10] MEDS: lisinopril 5 MG TAB PO SCH (09:08)
[2022-11-10] MEDS: ENOXAPARIN INJ 40 MG/0.4 ML SYR SQ SCH (09:09)
[2022-11-10 09:14] LABS: Anion Gap 7 (3-11); BUN Creatinine Ratio 19.8 (10-20); Blood Urea Nitrogen 24 mg/dl (6-23); C Reactive Protein < 0.50 mg/dl (0-0.5); Calcium 9.4 mg/dl (8.5-10.1); Carbon Dioxide 26 mmol/L (21-32); Chloride 104 mmol/L (98-107); Creatinine Clr Calc Pharmacy 67.6 ml/min; Est GFR (African American) 70.9 ml/min; Est GFR (Non-African American) 61.1 ml/min; Glucose 163 mg/dl (70-99(Fasting)); Potassium 4.2 mmol/L (3.5-5.1); Sodium 137 mmol/L (136-145)
[2022-11-10] MEDS: DICLOFENAC SOD 1% GEL 100 GM TUBE EXT SCH ×3 (09:14→18:17)
--- NOTE | 2022-11-10 09:53 | Hospitalist Progress Note ---
Date of Service November 10, 2022 Assessment & Plan (1) Complicated UTI (urinary tract infection): Plan: Acute on chronic moderate risk Complicated due to urostomy Previous multiresistant Enterobacter as well as multiple previous organism. Based on resistance pattern started on iv meropenem and daptomycin. Previous renal abscess in June 2022 treated in [facility]. Patient then had a UTI in early Aug, showed. E. clocae and was treated with cipro as it was sensitive. Patient was treated for 2 courses as per patient, andreturned later in Aug which showed same organism but now resistant to FQ.. Given recurrence of symptoms with bacteria I did have infectious disease consultation. In the past the patient is seen inpatient [facility] ID and outpatient [place] ID I did prompt the patient that he should likely be involved with an ongoing relationship with a community-based infectious disease person. However I did inform him and he agreed to an inpatient infectious disease consultation at this time Urology high-grade muscle invasive bladder cancer status post radical cystectomy with ileal conduit diversion admitted with complicated UTI No acute intervention indicated at this time. If clinically deteriorates despite antibiotics, then recommend CT imaging for further evaluation. US of kidney to assess for abscess., negative for abscess similar appearing cysts (2) Diabetes mellitus type 2, uncontrolled, with complications: Plan: Chronic and stable, Usual dosing Novolog 5-10 units with meals, 55 units Levemir at night but took 45 units last night as he hasn't been eating much glycemic pharmacy management (3) Depression: Plan: Chronic and stable Continue citalopram (4) Obstructive sleep apnea: Plan: Chronic and stable CPAP HS Plan VTE Prophylaxis - Lovenox 40mg SQ daily Diet - T2DM Admission and Anticipated Discharge Date Admission Date: November 08, 2022 Subjective Patient having no complaints his urine has cleared he is frustrated with the recurrence of his urinary infections. He feels he does have changes in his urine preceding his encephalopathy symptoms. He has attempted to contact urology when the changes in his urine occur but he typically is told that this is a normal occurrence but then he becomes more ill and sometimes prompt readmission Physical Exam Physical Exam: Awake alert appropriate he is without complaints he has a ileostomy in his right lower quadrant and draining clear jr urine Results & Data Results & Data Vital Signs (Past 12 Hours) Vital Signs Temp Pulse Resp BP BP Pulse Ox O2 Del Method 11/10/22 07:50 98.4 F 80 18 127/95 96 Room Air 11/09/22 22:59 98.4 F 75 20 123/80 92 Room Air Laboratory Results Reviewed CBC Reviewed PRP PG Care Time/CCT Total # of Minutes Spent Total Time Spent with Patient: Total time spent is greater than 50% in coordination of care (as documented) at patient's floor/unit and/or counseling patient: Coding Level of Care Code 97850 SUB INP/OBS CARE 2/35MIN Diagnoses Complicated UTI (urinary tract infection) N39.0 Diabetes mellitus type 2, uncontrolled, with complications E11.8; E11.65 Depression F32.A Obstructive sleep apnea G47.33
--- NOTE | 2022-11-10 10:26 | Pharmacy Report ---
Pharmacy Glycemic Short Note 2 - Date of Service November 10, 2022 - Glycemic Short BSG Results (Last 24 hours): 11/09/22 11/09/22 11/09/22 12:22 17:01 20:42 Glucose POC Glucose 113 H 128 H 107 H 11/10/22 11/10/22 07:49 07:57 Glucose 163 H POC Glucose 158 H OUTPATIENT ANTIDIABETIC REGIMEN: * Levemir 55 units HS, Novolog 10 units TID, Metformin 1 gm BID HbA1c: 7.4% (11/08/22) ASSESSMENT: 11/10/22: * Patient received 10 units of Lantus last evening (30 units total of basal insulin yesterday). * Fasting BSG today was 158 mg/dL * Plan is to start transitioning back to basal insulin regimen as patient takes 55 units of Levemir at outpatient. Lunchtime BS mg/dL. Giving Lantus 35 units at lunchtime today * Continuing current bolus insulin regimen CF: 20, CR: 7 11/09/22: * bsgS 105-199 mg/dL yesterday, received 5 5units of insulin (32 units of basal) * Fasting 168 mg/dL, slight increase in basal to get in goal range. 11/08/22: * BSGs trended down nicely yesterday following glycemic consult * Received 42 units of insulin (32 units of basal and 10 units of prandial/correctional bolus) * Continues on meropenem and daptomycin pending culture results * Slight increase in basal and tightening of bolus today 11/07/22: * Patient admitted with complicated UTI * Will start weight based novolog stress of 2 with lantus scale for PM * Overnight checks PLAN FOR INPATIENT GLYCEMIC CONTROL: * Hold outpatient oral diabetes medications * Basal insulin * Lantus 35 units at lunchtime * Bolus insulin * NovoLog per scale ACHS or Q6hrs while NPO * Goal Range: Low 110 mg/dL - High 140 mg/dL * Correction Factor: 20 mg/dL/unit * Nutritional / Prandial insulin per carb ratio of 1 unit per 7 grams CHO consumed
[2022-11-10] MEDS ORDERED: LANTUS PER UNIT CHARGE SQ ONE (12:15)
[2022-11-10] MEDS ORDERED: diphenhydrAMINE 50 MG/ML VIAL IV STA (15:26)
[2022-11-10] MEDS ORDERED: Nursing to Pharmacy Communication SCH (15:45)
--- NOTE | 2022-11-10 17:53 | Discharge Summary ---
Date of Service November 10, 2022 Admission HPI Per Admitting Provider Nishant Anna is a 67 year old male with urostomy who presents to the ER with fever, chills, high glucose, back pain, headache. Similar symptoms with prior UTIs. He reports his symptoms started 2 days ago. progressively getting worse. No objective fever however he has been sweating. He has no concerns with the urostomy site itself and changed the back this morning but has generalized mild pain over his abdomen. No change in bowels. He had a bowel movement this morning, no melena or bright red blood in his stool. No nasal congestion, cough, sinus pain. He does note a headache on top of his head. Principal Diagnosis uti, ileostomy, encephalopthy resolved Discharge Exam see daily exam Discharge Data Allergies Allergy/AdvReac Type Severity Reaction Status Date / Time Opioids - Morphine Analogues AdvReac "all kind Verified 10/06/22 09:18 of bad stuff" Consultations 11/07/22 10:50 ED Decision to Admit Stat 11/08/22 09:42 Consult Urology Routine 11/10/22 12:01 Consult Infectious Diseases Routine 11/10/22 17:48 [facility] Routine Ordered Studies 11/09/22 15:01 US Renal Bladder [US renal/blad retro comp] Routine Hospital Course (1) Complicated UTI (urinary tract infection): Acute on chronic moderate risk Complicated due to urostomy Previous multiresistant Enterobacter as well as multiple previous organism. Based on resistance pattern started on iv meropenem and daptomycin, dapto stopped but urine resulted in staph and liang After speaking to ID decision to complete 5 days of diflucan and doxycycline and have referral to outpt ID, his culture amounts are small but with clinical symptoms will treat otherwise Previous renal abscess in June 2022 treated in [facility]. Patient then had a UTI in early Aug, showed. E. clocae and was treated with cipro as it was sensitive. Patient was treated for 2 courses as per patient, and returned later in Aug which showed same organism but now resistant to FQ.. Given recurrence of symptoms with bacteria I did have infectious disease c onsultation. In the past the patient is seen inpatient [facility] ID and outpatient [facility] ID I did prompt the patient that he should likely be involved with an ongoing relationship with a community-based infectious disease person. Urology high-grade muscle invasive bladder cancer status post radical cystectomy with ileal conduit diversion admitted with complicated UTI No acute intervention indicated at this time. If clinically deteriorates despite antibiotics, then recommend CT imaging for further evaluation. US of kidney to assess for abscess., negative for abscess similar appearing cysts (2) Diabetes mellitus type 2, uncontrolled, with complications: Chronic and stable, Usual dosing Novolog 5-10 units with meals, 55 units Levemir at night but took 45 units last night as he hasn't been eating much glycemic pharmacy management (3) Depression: Chronic and stable Continue citalopram (4) Obstructive sleep apnea: Chronic and stable CPAP HS Total Time Total Time Spent Total Time Spent (In Minutes): It required greater than 30 minutes to prepare this patient for discharge Discharge Plan Discharge Items Patient Disposition: Home - Self-Care Reason For Visit: UTI Discharge Diagnosis: abnormal ua possible fungal uti Activity: Resume your previous activity Non-emergency contact: Primary Care Provider Call non-emergency contact if: your symptoms worsen Follow-up/Referrals: Robbie Vaca, [Primary Care Provider] - Diet: Regular Addtl Attending Provider Instructions: you have low levels of fungus and bacteria in your urine will have 5 days of an antifungal and antibiotic I will have Halina, our Nurse Navigator, call to arrange an outpt ID consultation for you Drink plenty of liquids Pending Studies at Discharge: No Stand-Alone Forms: My [facility], Smoking Cessation Medications and DC Order Prescriptions: New fluconazole [Diflucan] 100 mg tablet 100 mg PO BID 5 Days Qty: 10 0RF doxycycline hyclate 100 mg capsule 100 mg PO BID 5 Days Qty: 10 0RF Continued lisinopril 5 mg tablet 5 mg PO QAM Qty: 90 1RF atorvastatin 80 mg tablet 80 mg PO HS Qty: 90 3RF Rx Instructions: for cholesterol diclofenac sodium 1 % gel 2 g topical QID Qty: 100 5RF Rx Instructions: apply to single elbow, wrist or hand; for hand includes palm/fingers/back of hand metformin 500 mg tablet,ER velia.retention 24 hr 1,000 mg PO BID Qty: 360 3RF Levemir FlexTouch U-100 Insuln 100 unit/mL (3 mL) insulin pen 55 unit subcut QPM Qty: 30 3RF insulin aspart U-100 [Novolog FlexPen U-100 Insulin] 100 unit/mL (3 mL) insulin pen 10 unit subcut TID Qty: 15 1RF albuterol sulfate 90 mcg/actuation HFA aerosol inhaler 2 puff INH Q4H PRN (Reason: Shortness Of Breath) Qty: 8.5 3RF insulin aspart U-100 100 unit/mL (3 mL) insulin pen 1 sliding scale dose subcut USEASDIRECTD ondansetron 4 mg tablet,disintegrating 4 mg PO Q8H PRN (Reason: nausea and vomiting) Qty: 30 1RF citalopram 10 mg tablet 10 mg PO DAILY Qty: 30 5RF gabapentin 800 mg tablet 800 mg PO TID Qty: 90 5RF aspirin 81 mg tablet,delayed release (DR/EC) 81 mg PO HS cyclobenzaprine 5 mg tablet 5 mg PO TID PRN (Reason: Muscle Spasm) Discontinued methenamine hippurate 1 gram tablet 1 g PO BID 30 Days Qty: 60 5RF Discharge Orders: Discharge Order (Routine); Ordered 11/10/22 Ordered By: Ranjith Charles/Other Patient Handouts: Managing Type 2 Diabetes Admission Data Admit Date/Time: 11/08/22 16:38 Attending Provider: Ranjith Seay Admit Provider: Balwinder Adair Primary Care Provider: Robbie Vaca Other Providers: Balwinder Adair ; Marino Grissom ; Franklyn Roche ; Chaz Rosado ; Lakeisha [place] ; Robbie Vaca ; Trinity Escobedo Melissa A. ; Nishant Lester ; Yajaira Mccarty ; Cristina Reid ; Ranjith Flores ; Everett Robertson ; Elaine Chaudhry ; Mike Luna ; Halina Burton ; Abel Machuca ; Griselda Herzog ; Shama Ramos ; Linda James ; Kevin Chapman ; Dianne Riddle Other Interventions: Discharge Summary Assessment (RN) Last Done: 11/10/22 17:41 Coding Level of Care Code 07330 INP/OBS DISCH >30 MIN Diagnoses Complicated UTI (urinary tract infection) N39.0 Diabetes mellitus type 2, uncontrolled, with complications E11.8; E11.65 Depression F32.A Obstructive sleep apnea G47.33
== END 2022-11-10 18:47 | disposition home or self-care (01) | DRG 699 ==
LOC: 3N 08:44 → ED 08:44 → SUATTDRO 11:23 → 3N 12:59 → SUATTDRO 11-08 16:38

== ENCOUNTER 2025-03-24 09:15 | Inpatient (IN) ==
--- NOTE | 2025-03-24 09:32 | Emergency Department Note ---
Impression & Plan Symptomatic anemia, Chest pain ED Provider Note NAME: LIZET JONES AGE: 69 SEX: M : 1955 ARRIVES VIA: Walk-In INFORMANT: Patient, ED PROVIDER(S): Edilson Finch MD CHIEF COMPLAINT: Chest pain, dizziness MEDICAL DECISION MAKING: Patient presents with the above. The patient is pale in appearance but no reported dark stools or bright red blood. IV was established and blood work is obtained. Pressure is low initially concern for the possibility of anemia causing the patient's symptoms so aspirin and nitro deferred initially as the patient's initial EKG does not show signs of obvious ischemia. Q waves noted inferiorly. No obvious STEMI. Patient was ordered liter of IV fluids. Patient's blood work shows significant anemia with hemoglobin of 5.7. Most recent hemoglobin from 2022 was 16.8. Normal white count. MCV is slightly low. Platelet count is unremarkable. Kidney function unremarkable. No significant prerenal azotemia had a slight nature 20.1. Patient does report that his stools have been slightly dark but intermittently so over the last week. Patient reports that he had a colonoscopy when he was 64 had 2 polyps 1 of which was benign and the other was something else but he was unsure. Rectal exam performed. Hemoccult negative at this time. Patient was consented and ordered 2 units PRBCs. I did speak with the on-call hospitalist and the patient was admitted to medicine service by Dr. Zaman. Critical Care: I have personally spent 49 minutes of critical care time in direct management of this patient. This includes bedside care, interpretation of diagnostic studies, and testing, discussion with consultants, patient, and family members, and other require inpatient management activities. This 49 minutes is in excess of all separately billable procedures. Discussion w/ other healthcare providers: Dr. Zaman inpatient medicine service Prior /Outside records reviewed: I reviewed part of a PCP note from November 19. Patient was seen for URI type symptoms was ordered and x-ray. Patient with a known prior history of diabetes GERD bladder cancer renal cyst hyperlipidemia CAD I did review a discharge summary with Dr. Seay from November 10, 2022 to the patient was made for complicated UTI uncontrolled type 2 diabetes also history of depression NIDIA uses CPAP at night. Differential diagnosis: ACS, anemia, GI bleeding, dehydration, malignancy, benign positional vertigo, dehydration, hypovolemia, anemia, infection, hypoglycemia, electrolyte abnormalities, arrhythmia, tox among others were considered. Diagnostics, as interpreted by me: ECG: Normal sinus rhythm, rate of 73, normal intervals, normal axis no ST elevations. Cardiac monitoring: An order was placed for continuous cardiac monitoring. The monitor shows a rate of 75 with sinus rhythm. Patient was placed on pulse oximetry Medical decision rules: none Imaging studies: I informally interpreted the patient's chest x-ray without obvious pneumonia with formal report to follow. HPI: Patient presents due to concern for chest pains. The patient states he has had exertional chest pain over the last week. The patient states that currently its about a 4 or 5 left-sided heaviness pressure with radiation to the left arm. Patient is had associated nausea and clamminess. No reported falls or trauma. No cough or fever. No leg swelling or calf pain no prior history of DVT or PE. The patient has a prior history of GA. Patient does feel as though his symptoms are exertional in nature. PAST MEDICAL HISTORY: See Below PAST SURGICAL HISTORY: See Below SOCIAL HISTORY: See Below HOME MEDICATIONS: See Below ALLERGIES: See Below VITALS: See Below PHYSICAL EXAMINATION: GENERAL: NAD, non-toxic. Wearing glasses. Pale in appearance. EYE EXAM: Normal conjunctiva. PERRL, no anisocoria and EOM's grossly intact w/o pain. OROPHARYNX: Moist mucus membranes, grossly normal dentition. NECK: Trachea midline, no stridor. LUNGS: Clear to auscultation. Normal chest wall mechanics. HEART: NSR, no MRG. ABDOMEN: Abdomen soft, non-tender, no masses, no rebound or guarding. BACK: No CVA TTP. SKIN: No rashes and no bruising. UPPER EXTREMITIES: Upper extremities are grossly normal. LOWER EXTREMITIES: Grossly normal, no edema. Negative Homans' sign bilaterally. NEURO EXAM: Awake and alert, follows commands, no obvious facial asymmetry, normal speech, moves all 4 extremities. Past Med/Surg History Problem List (Updated 03/24/25 @ 17:10 by Edilson Finch MD) Chest pain (Acute) Symptomatic anemia (Acute) Weight loss Diabetes mellitus type 2, controlled, with complications GERD (gastroesophageal reflux disease) History of bladder cancer H/O urinary tract infection Depression Complex renal cyst Hyperlipidemia (Chronic) Lumbar discitis (Chronic) Tinnitus, bilateral (Chronic) Sensorineural hearing loss of both ears (Chronic) Neurogenic claudication due to lumbar spinal stenosis (Chronic) Degenerative disc disease (Chronic) CAD (coronary artery disease) (~2018) Anemia (Chronic) Benign prostatic hyperplasia with urinary obstruction (Chronic) Hypertension Obstructive sleep apnea Erectile dysfunction (Chronic) Medical History Hypomagnesemia Hypercalcemia Complicated UTI (urinary tract infection) Renal abscess Reactive depression (situational) 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 difficile colitis High cholesterol Hydronephrosis Malignant neoplasm of bladder Situational anxiety Malignant tumor of urinary bladder History of primary bladder cancer Diverticulitis Intractable pain Bladder cancer (08/08/17) "LUTS and Back pain Status post CT revealing bladder neoplasm Status post emergency room evaluation [facility]2017 Status post cystoscopy and transurethral resection of bladder tumor 08/08/2017 Right retrograde ureteral stent and placement of Hernandez catheter" Dyslipidemia Chronic back pain Diabetes mellitus Surgical History History of urostomy History of back surgery (03/21/20) L2-S1 fusion S/P ureteral stent placement History of coronary angioplasty S/P tooth extraction S/P colonoscopy History of ankle surgery Family History Mother Colorectal cancer Heart disease Diabetes Cardiac disorder Myocardial infarction Father Hypertension Myocardial infarction Sister Breast cancer Denies family history of Ovarian cancer Prostate cancer Social History Smoking Status: Never smoker Tobacco Type: Cigarettes Age Started Using Tobacco: 16; Age Quit Using Tobacco: 56; packs per day: 1; Second Hand Exposure: No; Do You Dip or Chew Tobacco: No; Hx Alcohol Use: No Hx Substance Use: No Preferred Language: Malay Communication Ability: Effective Visual Impairment: Limited Hearing Ability: Normal Hotel Supplies Salesperson Required: No Beliefs That Will Affect Care: None marital status: Current Living Situation: Spouse current occupational status: retired How many Children do You have: 2 Feels Safe at Home: Yes Childhood Exposure to Second-Hand Smoke: Yes Diet: regular caffeine: Yes Dental Care, Regularly: No Physical Activity Frequency: Daily Seatbelt Use: always Sunscreen Use: No Assistive Devices: None Allergies Allergies Allergy/AdvReac Type Severity Reaction Status Date / Time Opioids - Morphine Analogues AdvReac "all kind Verified 03/24/25 11:44 of bad stuff" Home Meds Home Medications Medication Instructions Recorded Confirmed aspirin 81 mg tablet,delayed 81 mg PO QPM 12/18/19 03/24/25 release gabapentin 800 mg tablet 800 mg PO TID 03/24/25 03/24/25 ibuprofen 200 mg tablet 800 mg PO BID 03/24/25 03/24/25 insulin glargine 100 unit/mL (3 38 unit subcut HS 03/24/25 03/24/25 mL) subcutaneous pen (Lantus Solostar U-100 Insulin) Previous Rx's Medication Instructions Recorded pen needle, diabetic 32 gauge x #300 ea 06/27/23" (BD Ultra-Fine [place] Pen Needle) blood sugar diagnostic (OneTouch #400 ea 03/12/24 Verio test strips) metformin 500 mg tablet,extended 1,000 mg (2 x 500 mg) PO BID #360 05/21/24 release 24 hr tabs atorvastatin 40 mg tablet 40 mg PO HS #100 tabs 06/14/24 omeprazole 40 mg capsule,delayed 40 mg PO DAILY #30 caps 12/11/24 release Results & Data (ED) Vital Signs Vital Signs - 24 hr 03/24/25 09:24 03/24/25 10:06 03/24/25 10:06 Temperature 36.8 C Temperature Source Temporal Artery Scan Pulse Rate 79 72 Pulse Rate from SpO2 Sensor Pulse Rhythm Regular Respiratory Rate 18 18 Respiratory Effort / Characteristics Non-Labored Spontaneous Respiratory Depth Normal Respiratory Pattern Regular Blood Pressure 104/65 Blood Pressure Mean 78 Blood Pressure Position Sitting Pulse Oximetry 100 100 100 Oxygen Delivery Method Room Air Nasal Cannula Room Air Sepsis Recent Fever Within 48 Hours No Sepsis New/Unexplained Change in Mental Status N/A Sepsis Action Taken by Nursing No Action Required 03/24/25 10:06 03/24/25 10:15 03/24/25 11:00 Temperature Temperature Source Pulse Rate 72 72 68 Pulse Rate from SpO2 Sensor 68 Pulse Rhythm Respiratory Rate 14 18 Respiratory Effort / Characteristics Respiratory Depth Respiratory Pattern Blood Pressure 130/75 140/107 H Blood Pressure Mean 93 118 Blood Pressure Position Pulse Oximetry 99 99 Oxygen Delivery Method Room Air Room Air Sepsis Recent Fever Within 48 Hours Sepsis New/Unexplained Change in Mental Status Sepsis Action Taken by Senior Living Medications Current Medication List: was personally reviewed by me Laboratory Data Attestation: I reviewed the patient's lab results. 03/24/25 09:40 03/24/25 09:40 Lab Results 03/24/25 Range/Units 09:40 WBC 6.70 (4.8-10.8) K/ul RBC 2.54 L (4.70-6.10) M/uL Hgb 5.7 L* (14.0-18.0) g/dl Hct 19.8 L* (42.0-52.0) % MCV 78.0 L (80.0-100.0) fL MCH 22.4 L (25.0-34.0) pg MCHC 28.8 L (32.0-36.0) g/dL RDW Std Deviation 45.0 (36.4-46.3) fL RDW Coeff of [place] 16.0 H (11.5-14.5) % Plt Count 226 (130-400) K/uL MPV 11.2 (9.4-12.4) fL Immature Gran % (Auto) 0.6 % Neut % (Auto) 81.9 % Lymph % (Auto) 9.4 % [place] % (Auto) 7.9 % Eos % (Auto) 0.1 % Baso % (Auto) 0.1 % Neut # (Auto) 5.48 (1.40-6.50) K/uL Lymph # (Auto) 0.63 L (1.20-3.40) K/uL [place] # (Auto) 0.53 (0.11-0.59) K/uL Eos # (Auto) 0.01 (0.00-0.50) K/uL Baso # (Auto) 0.01 (0.00-0.20) K/uL Immature Gran # (Auto) 0.04 (0.01-0.20) K/uL Polychromasia 2+ Hypochromasia Present Tear Drop Cells 1+ PT Cancelled INR Cancelled APTT Cancelled PTT Ratio Cancelled Sodium 136 (136-145) mmol/L Potassium 4.6 (3.5-5.1) mmol/L Chloride 102 (98-107) mmol/L Carbon Dioxide 24 (21-32) mmol/L Anion Gap 10 (3-11) BUN 28 H (6-23) mg/dl Creatinine 1.39 (0.6-1.4) mg/dl Est Cr Clr Drug Dosing 51.1 ml/min eGFR 54.54 BUN/Creatinine Ratio 20.1 H (10-20) Glucose 171 H (70-99(Fasting)) mg/dl Calcium 9.3 (8.6-10.3) mg/dl Total Bilirubin 0.3 (0.2-1.0) mg/dl AST 15 (13-39) U/L ALT 10 (7-52) U/L Alkaline Phosphatase 61 (34-104) U/L Troponin I High Sens 4.6 (0-20) pg/ml Total Protein 7.0 (6.0-8.3) gm/dl Albumin 4.4 (3.4-5.0) gm/dl Globulin 2.6 (2.5-4.0) gm/dl Albumin/Globulin Ratio 1.7 (0.9-2) Lipase 88 H (11-82) U/L Administered Medications Pantoprazole Sodium 40 mg/ (Dextrose) 100 mls @ 20 mls/hr IV Q5H SUYAPA Stop: 04/23/25 11:29 Last Admin: 03/24/25 12:22 Dose: 8 mg/hr, 20 mls/hr Documented By: Insulin Aspart (Insulin Aspart Per Unit Charge) 0 units SC Q6 SUYAPA Stop: 04/23/25 14:29 Last Admin: 03/24/25 16:07 Dose: Not Given Documented By: BT Discontinued Medications Sodium Chloride (Nss) 1,000 mls @ 999 mls/hr IV .Q1H1M STA Stop: 03/24/25 11:04 Last Infusion: 03/24/25 12:06 Dose: Infused Documented By: Admin: 03/24/25 10:15 Dose: 999 mls/hr Documented By: Pantoprazole Sodium 80 mg/ (Dextrose) 120 mls @ 480 mls/hr IV NOW ONE Stop: 03/24/25 11:34 Last Infusion: 03/24/25 12:47 Dose: Infused Documented By: Admin: 03/24/25 11:59 Dose: 480 mls/hr Documented By: Ondansetron HCl (Ondansetron Inj 2 Mg/Ml 2 Ml Vial) 4 mg IV NOW STA Stop: 03/24/25 10:05 Last Admin: 03/24/25 10:15 Dose: 4 mg Documented By: Imaging Data Radiologist's Impression: Chest X-Ray 03/24/25 10:04 SINGLE VIEW CHEST CLINICAL HISTORY: Chest pain FINDINGS: 2 AP, portable, upright chest radiographs are compared to study dated 11/19/2024 and correlated with chest CT dated 11/01/2019. The examination is degraded by portable technique and patient rotation. The cardiomediastinal silhouette is unremarkable noting atherosclerotic calcification of the thoracic aorta. There is mild bibasilar atelectasis. The lungs and pleural spaces are otherwise clear. No pneumothorax is seen. The bony thorax is grossly intact. Fusion hardware is noted in the lumbar spine. IMPRESSION: No acute cardiopulmonary abnormality is identified. ACT 112: Negative or not required by law. Electronically signed by: Tino Pandey M.D. 03/24/2025 10:36 AM Discharge Plan Visit Data Chief Complaint: Chest Pain Stated Complaint: CHEST PAINS,SOB,DIZZY,LIGHTHEADED ED Provider: Edilson Finch Discharge Problem: Symptomatic anemia, Chest pain Patient Disposition: Admitted As Inpatient Condition: Fair Discharge Instructions Interventions: ED Discharge Assessment Last Done: 03/24/25 14:05 Discharge Problem: Chest pain Qualifiers: Chest pain type: unspecified Qualified Code(s): R07.9 - Chest pain, unspecified
[2025-03-24] MEDS: SODIUM CHLORIDE 0.9% 1,000 ML IV STA (10:15)
[2025-03-24] MEDS: ONDANSETRON INJ 2 MG/ML 2 ML VIAL IV STA (10:15)
[2025-03-24 10:35] LABS: Hematocrit (blood only) 19.8 % (42.0-52.0); Hemoglobin 5.7 g/dl (14.0-18.0); Mean Corpuscular Hemoglobin 22.4 pg (25.0-34.0); Mean Corpuscular Volume 78.0 fL (80.0-100.0); Platelet Count 226 K/uL (130-400); RDW Standard Deviation 45.0 fL (36.4-46.3); Red Blood Count 2.54 M/uL (4.70-6.10); White Blood Count 6.70 K/ul (4.8-10.8)
--- NOTE | 2025-03-24 10:39 | XRay Report ---
SINGLE VIEW CHEST CLINICAL HISTORY: Chest pain FINDINGS: 2 AP, portable, upright chest radiographs are compared to study dated 11/19/2024 and correla bishop with chest CT dated 11/01/2019. The examination is degraded by portable technique and patient rotat ion. The cardiomediastinal silhouette is unremarkable noting atherosclerotic calcification of the th oracic aorta. There is mild bibasilar atelectasis. The lungs and pleural spaces are otherwise clear. No pneumothorax is seen. The bony thorax is grossly intact. Fusion hardware is noted in the lumbar sp ine. IMPRESSION: No acute cardiopulmonary abnormality is identified. ACT 112: Negative or not required by law. Electronically signed by: Tino Pandey M.D. 03/24/2025 10:36 AM
[2025-03-24 10:41] LABS: Alanine Aminotransferase 10.0 U/L (7-52); Albumin Globulin Ratio 1.7 (0.9-2); Alkaline Phosphatase 61.0 U/L (34-104); Anion Gap 10.0 (3-11); Bilirubin,Total 0.3 mg/dl (0.2-1.0); Blood Urea Nitrogen 28.0 mg/dl (6-23); Calcium 9.3 mg/dl (8.6-10.3); Carbon Dioxide 24.0 mmol/L (21-32); Chloride 102.0 mmol/L (98-107); Creatinine Clr Calc Pharmacy 51.1 ml/min; Globulin 2.6 gm/dl (2.5-4.0); Glucose 171.0 mg/dl (70-99(Fasting)); Lipase 88.0 U/L (11-82); Potassium 4.6 mmol/L (3.5-5.1); Sodium 136.0 mmol/L (136-145); Total Protein 7.0 gm/dl (6.0-8.3)
[2025-03-24 10:46] LABS: Hypochromasia Present; Immature Granulocytes # (auto) 0.04 K/uL (0.01-0.20); Immature Granulocytes % (auto) 0.6 %; Polychromasia 2+; Tear Drop Cells 1+
[2025-03-24] MEDS ORDERED: SODIUM CHLORIDE 0.9% 100 ML IV PRN (10:47)
[2025-03-24] MEDS ORDERED: PANTOPRAZOLE BOLUS/DRIP IV STA (11:20)
[2025-03-24] MEDS: PANTOprazole 40 MG in DEXTROSE 5% MINI-B 100 ML IV SCH (12:22)
--- NOTE | 2025-03-24 12:37 | Gastrointestinal Consultation ---
Date of Consultation March 24, 2025 Assessment & Plan (1) Weight loss: (2) Anemia: Plan 69 year old male with history of T2DM, GERD, bladder CA, depression, hyperlipidemia, CAD, HTN, NIDIA and others below presenting through the ED w/ dizziness and CP - admitted w/ anemia, HGB of 5.7 He endorses weight loss, solid/liquids dysphagia and chronic nausea but denies black/bloody stools/emesis - Clear liquids today - NPO after midnight - Assess candidacy for EGD 03/25/25 - Trend H&H - Monitor/document GI output - Transfuse PRN per primary team - Hold NSAIDs - Agree w/ IV PPI - Recommend iron panel and ferritin - Recommend CT Chest, Abd, Pelvis given unintentional weight loss - Pending above, may need repeat colonoscopy during admission I spent a total of 60 minutes on the date of service in review of patient's record, and previously obtained information in person and appropriate medical visit, discussion and education of plan, with patient and/or caregiver, placing orders for tests/referral/procedures as medically necessary and documentation of pertinent clinical information in patient's medical records for their visit today. Supervising Physician Co-Signing Physician Notes I saw and examined this patient with our nurse practitioner and agree with her assessment and plan. Presents with several month history of dysphagia and weight loss now with significant anemia no overt blood loss. Of upper GI symptoms we will proceed with endoscopy to exclude GI bleeding site as well as underlying neoplastic process. History of Present Illness Reason for Consultation: anemia Requesting Physician: Dr. Zaman Attending Physician: Dr. Zaman History of Present Illness 69 year old male with history of T2DM, GERD, bladder CA, depression, hyperlipidemia, CAD, HTN, NIDIA and others below presenting through the ED w/ dizziness and CP - admitted w/ anemia, HGB of 5.7. GI was asked to evaluate. Pt suggests for a few months he has noted both solid/liquids dysphagia. He denies associate reflux/regurgitation. Endorses chronic nausea. No vomiting. Reports unintentional weight loss of about 30 lbs. No change in bowel habits. Suggests some constipation. No black or bloody stools but suggests he does not often assess. HGB 5.7 MCV 78 No ETOH No tobacco Daily ASA Daily NSAIDs (4 ibuprofen daily for BA) Colonoscopy 2018: two small polyps, removed. diverticulosis Allergies Allergy/AdvReac Type Severity Reaction Status Date / Time Opioids - Morphine Analogues AdvReac "all kind Verified 03/24/25 11:44 of bad stuff" Home Medications Medication Instructions Recorded Confirmed Type aspirin 81 mg tablet,delayed 81 mg PO QPM 12/18/19 03/24/25 History release pen needle, diabetic 32 gauge x #300 ea 06/27/23 10/04/24 Rx 5/32" (BD Ultra-Fine Beverly Pen Needle) blood sugar diagnostic (OneTouch #400 ea 03/12/24 10/04/24 Rx Verio test strips) metformin 500 mg tablet,extended 1,000 mg (2 x 500 mg) PO BID #360 05/21/24 03/24/25 Rx release 24 hr tabs atorvastatin 40 mg tablet 40 mg PO HS #100 tabs 06/14/24 03/24/25 Rx omeprazole 40 mg capsule,delayed 40 mg PO DAILY #30 caps 12/11/24 03/24/25 Rx release gabapentin 800 mg tablet 800 mg PO TID 03/24/25 03/24/25 History ibuprofen 200 mg tablet 800 mg PO BID 03/24/25 03/24/25 History insulin glargine 100 unit/mL (3 38 unit subcut HS 03/24/25 03/24/25 History mL) subcutaneous pen (Lantus Solostar U-100 Insulin) Patient History Medical History Hypomagnesemia Hypercalcemia Complicated UTI (urinary tract infection) Renal abscess Reactive depression (situational) Osteomyelitis of lumbar spine (2019) Eustachian tube dysfunction Insulin dependent diabetes mellitus Diverticulosis C. difficile colitis High cholesterol Hydronephrosis Malignant neoplasm of bladder Situational anxiety Malignant tumor of urinary bladder History of primary bladder cancer Diverticulitis Intractable pain Bladder cancer (08/08/17) Dyslipidemia Chronic back pain Diabetes mellitus Surgical History History of urostomy History of back surgery (03/21/20) S/P ureteral stent placement History of coronary angioplasty S/P tooth extraction S/P colonoscopy History of ankle surgery Family History Mother Colorectal cancer Heart disease Diabetes Cardiac disorder Myocardial infarction Father Hypertension Myocardial infarction Sister Breast cancer Denies family history of Ovarian cancer Prostate cancer Social History Smoking Status: Never smoker Tobacco Type: Cigarettes Age Started Using Tobacco: 16; Age Quit Using Tobacco: 56; packs per day: 1; Second Hand Exposure: No; Do You Dip or Chew Tobacco: No; Hx Alcohol Use: No Hx Substance Use: No Preferred Language: Upper Sorbian Communication Ability: Effective Visual Impairment: Limited Hearing Ability: Normal Candy Roller Required: No Beliefs That Will Affect Care: None marital status: Current Living Situation: Spouse current occupational status: retired How many Children do You have: 2 Feels Safe at Home: Yes Childhood Exposure to Second-Hand Smoke: Yes Diet: regular caffeine: Yes Dental Care, Regularly: No Physical Activity Frequency: Daily Seatbelt Use: always Sunscreen Use: No Assistive Devices: None Review of Systems Review of Systems: All other findings negative except as noted in HPI. Physical Exam Constitutional: WD/WN, vitals as above Respiratory: normal respiratory effort, lungs clear to auscultation Cardiovascular: RRR, no murmur, no edema Gastrointestinal (Abdomen): normal bowel sounds, soft, nontender, no h epatosplenomegaly Skin: no rashes, warm and dry Results & Data Vital Signs (Past 12 Hours) Vital Signs Temp Pulse Resp BP Pulse Ox O2 Del Method 03/24/25 12:08 97 Room Air 03/24/25 11:48 68 23 114/65 97 Room Air 03/24/25 11:00 68 18 140/107 H 99 Room Air 03/24/25 10:15 72 03/24/25 10:06 72 14 130/75 99 Room Air 03/24/25 10:06 72 18 100 Room Air 03/24/25 10:06 100 Nasal Cannula 03/24/25 09:24 98.2 F 79 18 104/65 100 Room Air PG Care Time/CCT Total # of Minutes Spent Total Time Spent with Patient: Total time spent is greater than 50% in coordination of care (as documented) at patient's floor/unit and/or counseling patient: Coding Level of Care Code 30820 INT INP/OBS CARE 2/55MIN Diagnoses Weight loss R63.4 Anemia D64.9
[2025-03-24 13:11] LABS: INR 1.0 (0.9-1.1); Partial Thromboplastin Time 26 Seconds (21-31); Prothrombin Time 11.1 Seconds (9.0-12.0)
[2025-03-24] MEDS ORDERED: PHARMACY GLYCEMIC MGMT CONSULT PRN (14:03)
[2025-03-24] MEDS ORDERED: GLUCAGON FOR INJ 1 MG VIAL SQ PRN (14:30)
[2025-03-24] MEDS ORDERED: GLUCOSE 40% GEL 15 GM TUBE PO PRN (14:30)
[2025-03-24] MEDS ORDERED: GLUCOSE 10 TAB/TUBE PO PRN (14:30)
[2025-03-24] MEDS ORDERED: DEXTROSE 50% 50 ML SYRINGE IV PRN (14:30)
[2025-03-24] MEDS ORDERED: CARBOHYDRATES FOR HYPOGLYCEMIA PO PRN (14:30)
--- NOTE | 2025-03-24 14:30 | Pharmacy Report ---
Pharmacy Glycemic Short Note 2 - Date of Service March 24, 2025 - Glycemic Short BSG Results (Last 24 hours): 03/24/25 09:40 Glucose 171 H OUTPATIENT ANTIDIABETIC REGIMEN: * Lantus 38 units SC HS * Metformin 1000 mg PO BIDM HbA1c: 6.4% (10/01/24), reordered for 03/25/25 ASSESSMENT: * DM is a 69 year old male admitted for evaluation of anemia w/ concomitant chest pain, dizziness, and weight loss * Blood sugar on presentation of 171 mg/dL, reportedly administered 38 units of Lantus last evening * Patient is currently NPO * Ordered continuous pantoprazole gtt (mixed in dextrose) PLAN FOR INPATIENT GLYCEMIC CONTROL: * Hold outpatient oral diabetes medications * Basal insulin * Lantus 0-10-15 units SQ HS * Bolus insulin * NovoLog per scale ACHS or Q6hrs while NPO * Goal Range: Low 120 mg/dL - High 160 mg/dL * Correction Factor: 25 mg/dL/unit * Nutritional / Prandial insulin per carb ratio of 1 unit per 9 grams CHO consumed
[2025-03-24] MEDS: INSULIN ASPART PER UNIT CHARGE SC SCH (16:07)
[2025-03-24] MEDS: LACTATED RINGER'S 1,000 ML IV SCH (19:38)
[2025-03-24] MEDS: GABAPENTIN 800 MG TAB PO SCH (20:43)
[2025-03-24] MEDS: LANTUS PER UNIT CHARGE SC SCH (20:48)
--- NOTE | 2025-03-24 22:40 | History & Physical Report ---
Date of Service March 24, 2025 Assessment & Plan (1) Symptomatic anemia: (2) Weight loss: (3) Diabetes mellitus type 2, controlled, with complications: (4) GERD (gastroesophageal reflux disease): (5) Hypertension: (6) CAD (coronary artery disease): Plan # Acute Blood loss anemia May be secondary to NSAID use as patint takes Ibuprofen Consulted gastro. GI scope will be completed tomorrow will consult heme/onc. will transfuse 2 units of PRBC as anemia is significantly below 7 and 1 unit would not be enough. #unintentional weight loss lost 30 pounds in oast few months. ordered ct imaging of chest abd/pelvis # Diabetes mellitus type 2, uncontrolled, with complications: Plan: consulted glycemic control # Depression: Plan: will hold oral meds citalopram #CAD (coronary artery disease): Plan: due to concer for GI bleed will hold aspirin will also hold atorvastatin just to limit any oral intake during this crucial time but will likely resume soon. #Obstructive sleep apnea: Plan: CPAP HS # Hypertension: Plan: Lisinopril no longer listed on meds. BP at goal. will monitor. Admission and Anticipated Discharge Date Admission Date: March 24, 2025 History of Present Illness Chief Complaint: fatigue Primary Care Provider: Vasyl Westbrook, DO 69 year old male with history of T2DM, GERD, bladder CA, depression, hyper lipidemia, CAD, HTN, NIDIA and others below presenting with Shortness of breath, fatigue and chest pain. Patient reports his oral intake has decreased and he is having difficulty with solid and liquid dysphagia. Patient also reports unintended weight loss about 30 lbs. Allergies Allergy/AdvReac Type Severity Reaction Status Date / Time Opioids - Morphine Analogues AdvReac "all kind Verified 03/24/25 11:44 of bad stuff" Home Medications Medication Instructions Recorded Confirmed Type aspirin 81 mg tablet,delayed 81 mg PO QPM 12/18/19 03/24/25 History release pen needle, diabetic 32 gauge x #300 ea 06/27/23 10/04/24 Rx " (BD Ultra-Fine Beverly Pen Needle) blood sugar diagnostic (OneTouch #400 ea 03/12/24 10/04/24 Rx Verio test strips) metformin 500 mg tablet,extended 1,000 mg (2 x 500 mg) PO BID #360 05/21/24 03/24/25 Rx release 24 hr tabs atorvastatin 40 mg tablet 40 mg PO HS #100 tabs 06/14/24 03/24/25 Rx omeprazole 40 mg capsule,delayed 40 mg PO DAILY #30 caps 12/11/24 03/24/25 Rx release gabapentin 800 mg tablet 800 mg PO TID 03/24/25 03/24/25 History ibuprofen 200 mg tablet 800 mg PO BID 03/24/25 03/24/25 History insulin glargine 100 unit/mL (3 38 unit subcut HS 03/24/25 03/24/25 History mL) subcutaneous pen (Lantus Solostar U-100 Insulin) Past Med/Surg History Problem List Gastric mass Chest pain (Acute) Symptomatic anemia (Acute) Weight loss Diabetes mellitus type 2, controlled, with complications GERD (gastroesophageal reflux disease) History of bladder cancer H/O urinary tract infection Depression Complex renal cyst Hyperlipidemia (Chronic) Lumbar discitis (Chronic) Tinnitus, bilateral (Chronic) Sensorineural hearing loss of both ears (Chronic) Neurogenic claudication due to lumbar spinal stenosis (Chronic) Degenerative disc disease (Chronic) CAD (coronary artery disease) (~2018) Anemia (Chronic) Benign prostatic hyperplasia with urinary obstruction (Chronic) Hypertension Obstructive sleep apnea Erectile dysfunction (Chronic) Medical History Hypomagnesemia Hypercalcemia Complicated UTI (urinary tract infection) Renal abscess Reactive depression (situational) 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 difficile colitis High cholesterol Hydronephrosis Malignant neoplasm of bladder Situational anxiety Malignant tumor of urinary bladder History of primary bladder cancer Diverticulitis Intractable pain Bladder cancer (08/08/17) "LUTS and Back pain Status post CT revealing bladder neoplasm Status post emergency room evaluation and transfer to [facility] 08/07/2017 Status post cystoscopy and transurethral resection of bladder tumor 08/08/2017 Right retrograde ureteral stent and placement of Hernandez catheter" Dyslipidemia Chronic back pain Diabetes mellitus Surgical History History of urostomy History of back surgery (03/21/20) L2-S1 fusion S/P ureteral stent placement History of coronary angioplasty S/P tooth extraction S/P colonoscopy History of ankle surgery Family History Mother Colorectal cancer Heart disease Diabetes Cardiac disorder Myocardial infarction Father Hypertension Myocardial infarction Sister Breast cancer Denies family history of Ovarian cancer Prostate cancer Social History Smoking Status: Former smoker Tobacco Type: Cigarettes Age Started Using Tobacco: 16; Age Quit Using Tobacco: 56; packs per day: 1; Second Hand Exposure: No; Do You Dip or Chew Tobacco: No; Hx Alcohol Use: No Hx Substance Use: No Preferred Language: Polish Communication Ability: Effective Visual Impairment: Limited Hearing Ability: Normal Forestry Contractor Required: No Beliefs That Will Affect Care: None marital status: Current Living Situation: Spouse current occupational status: retired How many Children do You have: 2 Feels Safe at Home: Yes Childhood Exposure to Second-Hand Smoke: Yes Diet: regular caffeine: Yes Dental Care, Regularly: No Physical Activity Frequency: Daily Seatbelt Use: always Sunscreen Use: No Assistive Devices: Glasses Review of Systems Constitutional: no fever and no body aches Eyes: no blind spots Ear, Nose, Mouth, Throat: no ear pain Respiratory: no cough Cardiovascular: no chest pain Gastrointestinal: no abdominal pain Genitourinary: no dysuria Musculoskeletal: no back pain Integumentary: no acne Neurologic: no gait abnormality Psychiatric: no behavioral changes Endocrine: no fatigue Hematologic / Lymphatic: no easy bleeding Allergy / Immunological: no GI upset with certain foods Physical Exam Constitutional: WD/WN, vitals as above Eyes: PERRL, conjunctivae normal, anicteric sclerae ENMT: external ear and nose normal, oropharynx normal Neck: trachea midline, no thyromegaly Respiratory: normal respiratory effort, lungs clear to auscultation Cardiovascular: RRR, no murmur, no edema Gastrointestinal (Abdomen): normal bowel sounds, soft, nontender, no hepatosplenomegaly Musculoskeletal: no cyanosis or clubbing, extremities motor strength 5/5 Skin: no rashes, warm and dry Neurologic: PERRL, EOMI, accommodation nl, no face palsy, no dysarthria Psychiatric: A+Ox3, euthymic affect Lymphatic: no cervical or axillary lymphadenopathy Results & Data Results & Data Vital Signs (Past 12 Hours) Vital Signs Temp Pulse Resp BP BP Pulse Ox O2 Del Method 03/24/25 20:31 36.9 C 73 18 101/65 95 03/24/25 19:31 37.1 C 68 18 110/66 98 03/24/25 19:01 37.2 C 67 18 109/66 97 03/24/25 18:46 37.1 C 74 18 134/74 94 03/24/25 18:39 37.1 C 74 18 134/74 03/24/25 18:25 37.2 C 75 18 118/73 03/24/25 17:36 37.1 C 16 125/70 03/24/25 16:31 Room Air 03/24/25 16:20 37.1 C 70 18 112/61 03/24/25 16:09 72 03/24/25 15:45 36.6 C 70 18 126/76 95 03/24/25 15:15 36.4 C L 18 134/77 96 Room Air 03/24/25 14:50 36.8 C 68 18 119/74 99 03/24/25 14:33 36.8 C 70 18 125/74 99 03/24/25 14:18 68 03/24/25 14:16 36.7 C 68 18 105/63 94 03/24/25 12:33 68 16 106/62 98 Room Air 03/24/25 12:08 97 Room Air 03/24/25 11:48 68 23 114/65 97 Room Air 03/24/25 11:00 68 18 140/107 H 99 Room Air PG Care Time/CCT Total # of Minutes Spent Total Time Spent with Patient: Total time spent is greater than 50% in coordination of care (as documented) at patient's floor/unit and/or counseling patient: Coding Level of Care Code 08772 INT INP/OBS CARE 375MIN Diagnoses Symptomatic anemia D64.9 Weight loss R63.4 Diabetes mellitus type 2, controlled, with complications E11.8 GERD (gastroesophageal reflux disease) K21.9 Primary hypertension I10 Hypertension type: primary hypertension Coronary artery disease involving [place] heart without angina pectoris, unspecified vessel or lesion type I25.10 Associated angina: without angina Coronary Disease-Associated Artery/Lesion type: unspecified vessel or lesion type [place] vs. transplanted heart: [place] heart (5) Hypertension Hypertension type: primary hypertension Qualified Code(s): I10 - Essential (primary) hypertension (6) CAD (coronary artery disease) Associated angina: without angina Coronary Disease-Associated Artery/Lesion type: unspecified vessel or lesion type [place] vs. transplanted heart: [place] heart Qualified Code(s): I25.10 - Atherosclerotic heart disease of [place] coronary artery without angina pectoris
[2025-03-25 00:56] LABS: Hematocrit (blood only) 23.5 % (42.0-52.0); Hemoglobin 7.0 g/dl (14.0-18.0); Mean Corpuscular Hemoglobin 23.5 pg (25.0-34.0); Mean Corpuscular Volume 78.9 fL (80.0-100.0); Platelet Count 174 K/uL (130-400); RDW Standard Deviation 46.8 fL (36.4-46.3); Red Blood Count 2.98 M/uL (4.70-6.10); White Blood Count 5.82 K/ul (4.8-10.8)
--- NOTE | 2025-03-25 06:15 | Electrocardiogram Report ---
Test Reason : Blood Pressure : */* mmHG Vent. Rate : 73 BPM Atrial Rate : 73 BPM P-R Int : 186 ms QRS Dur : 82 ms QT Int : 390 ms P-R-T Axes : -6 -16 -9 degrees QTcB Int : 429 ms Normal sinus rhythm Inferior infarct , age undetermined Abnormal ECG When compared with ECG of 07-Nov-2022 11:30, Nonspecific T wave abnormality, worse in Inferior leads Confirmed by Brian Elizabeth ([id number]) on 03/25/2025 6:15:34 AM Referred By: REFERRED SELF Confirmed By: Brian Elizabeth
[2025-03-25 06:35] LABS: Alanine Aminotransferase 9.0 U/L (7-52); Albumin Globulin Ratio 1.6 (0.9-2); Alkaline Phosphatase 54.0 U/L (34-104); Anion Gap 7.0 (3-11); Bilirubin,Total 0.6 mg/dl (0.2-1.0); Blood Urea Nitrogen 19.0 mg/dl (6-23); Calcium 8.8 mg/dl (8.6-10.3); Carbon Dioxide 23.0 mmol/L (21-32); Chloride 108.0 mmol/L (98-107); Creatinine Clr Calc Pharmacy 58.2 ml/min; Globulin 2.5 gm/dl (2.5-4.0); Glucose 100.0 mg/dl (70-99(Fasting)); Iron 21.0 mcg/dl (35-175); Potassium 4.1 mmol/L (3.5-5.1); Sodium 138.0 mmol/L (136-145); Total Iron Binding Cap Calc 423.0 mcg/dl (250-450); Total Protein 6.4 gm/dl (6.0-8.3); Transferrin 302.0 mg/dl (200-360); Transferrin (FE) Percent Satur 5.0 % (20-50)
[2025-03-25] MEDS: OPTIRAY 320 100ml IV ONE (06:40)
[2025-03-25 06:55] LABS: Ferritin 6.4 ng/ml (8-388)
--- NOTE | 2025-03-25 07:25 | CT Scan Report ---
EXAM: CT chest diagnostic w con CLINICAL HISTORY: weight loss TECHNIQUE: Contiguous axial images were obtained from the neck base through the upper abdomen following intravenous administration of contrast material. If IV contrast material had not been administered, the likelihood of detecting abnormalities relevant to the patient's condition would have been substantially decreased. In addition, sagittal and coronal reconstructions were performed. CT scan was performed according to ALARA (as low as reasonable achievable). COMPARISON: None. FINDINGS: 3mm sized solid nodule is seen in superior segment of right lower lobe. Few subpleural ground glass nodules are seen in posterior basal segments of bilateral lower lobes. Rest of the lungs are clear, with no focal areas of consolidation. The central airways are patent. There are no pleural effusions. No pneumothorax is seen. No axillary, hilar, or mediastinal adenopathy is identified. The visualized thyroid is unremarkable. The heart, aorta, and pulmonary arteries are of normal size and configuration. No pericardial effusion is identified. Imaged portions of the upper abdomen shows multiple variable sized hypodense lesions in both lobes of liver. Mildly thickening of gastroesophageal junction- could be due to collapsed state. No aggressive appearing osseous lesions are identified. IMPRESSION: 1. 3mm sized solid nodule is seen in superior segment of right lower lobe. Few subpleural ground glass nodules are seen in posterior basal segments of bilateral lower lobes. Lung-RADS 2. Annual CT follow-up is suggested. 2. Multiple variable sized hypodense lesion is noted in both lobes of liver- dedicated abdominal study suggested. Electronically signed by Vasyl De Souza 03-25-2025 07:25 AM
--- NOTE | 2025-03-25 07:49 | CT Scan Report ---
EXAM: CT abd pelvis IV con only CLINICAL HISTORY: anemia/ weight loss TECHNIQUE: Contiguous axial images were obtained from the level of the diaphragm to the pubic symphysis with intravenous contrast. Coronal and sagittal reconstructions were likewise performed and indicated to increase the sensitivity for detecting clinically relevant pathology. If IV contrast material had not been administered, the likelihood of detecting abnormalities relevant to the patient's condition would have been substantially decreased. CT scan was performed according to ALARA (as low as reasonable achievable). COMPARISON: September 19 FINDINGS: The visualized lung bases are clear. The liver is normal in size and attenuation. Multiple small variable sized heterogeneously enhancing hypodense lesions are noted in both lobes of liver - largest measures about 14 x 13 mm There is no intra or extrahepatic biliary ductal dilatation. Hepatic vasculature is patent. The gallbladder is present. The spleen, pancreas, and adrenal glands are unremarkable. The kidneys are normal in size and attenuation. There is no hydronephrosis or perinephric fat stranding. No renal calculi or renal masses are identified. Few simple cortical cyst are noted in both kidneys -stable. The ureters are normal in caliber and no ureteral calculi are seen. The stomach is collapsed and shows mild concentric thickening near gastro-oesophageal junction , gastric cardia and proximal body of stomach with mild perigastric fat stranding. Few lymph nodes are noted adjacent to the gastric cardia. Abdominal and pelvic vasculature is patent. No aggressive appearing osseous lesions are identified. Post cystostomy status with ileal conduit with right lower quadrant ileostomy status without obvious complication. Multiple uncomplicated colonic diverticulosis. Multiple tiny jamaal deposits are noted involving greater omentum, in the right mid and lower quadrant Degenerative changes involving visualized spine. Fixation of the lumbar spine with laminectomy without obvious complication. IMPRESSION: 1. Multiple hepatic lesions as described above- appears neoplastic lesion- -new finding. - histopathological correlation suggested. 2. The stomach is collapsed and shows mild concentric thickening near gastro-oesophageal junction , gastric cardia and proximal body of stomach with mild perigastric fat stranding.- endoscopic correlation suggested.-new finding. 3. Few lymph nodes are noted adjacent to the gastric cardia.-new finding. 4. Post cystostomy status with ileal conduit with right lower quadrant ileostomy status without obvious complication.-stable. 5. Multiple tiny jamaal deposits are noted involving greater omentum, in the right mid and lower quadrant-new finding. 6. Multiple uncomplicated colonic diverticulosis.-stable. Electronically signed by Vasyl De Souza 03-25-2025 07:49 AM
[2025-03-25 08:46] LABS: Hemoglobin A1C 5.9 % (4.5-5.6)
--- NOTE | 2025-03-25 10:41 | Gastroenterology Progress Note ---
Date of Service March 25, 2025 Assessment & Plan (1) Weight loss: (2) Anemia: Plan 69 year old male with history of T2DM, GERD, bladder CA, depression, hyperlipidemia, CAD, HTN, NIDIA and others below presenting through the ED w/ dizziness and CP - admitted w/ anemia, HGB of 5.7 He endorses weight loss, solid/liquids dysphagia and chronic nausea but denies black/bloody stools/emesis. - Maintain NPO status for EGD today - Trend H&H - Monitor/document GI output - Transfuse PRN per primary team - Hold NSAIDs - Agree w/ IV PPI We appreciate assistance in the management of any serological abnormality and corrections to include: hemoglobin >7, INR <2, platelets >50,000, potassium levels >3.5 but <5.3, and sodium levels within 5 points of the reference range prior to endoscopic evaluation. Admission and Anticipated Discharge Date Admission Date: March 24, 2025 Supervising Physician Co-Signing Physician Notes I saw and examined this patient with our nurse practitioner and agree with her assessment and plan. CT scan suggestive of esophageal mass. Will proceed with endoscopy this morning.. Subjective Remains NPO for EGD this AM. All questions answered. No BM since admission. CTCAP: Multiple hepatic lesions as described above- appears neoplastic lesion- -new finding. - histopathological correlation suggested. The stomach is collapsed and shows mild concentric thickening near gastro-oesophageal junction , gastric cardia and proximal body of stomach with mild perigastric fat stranding.- endoscopic correlation suggested.-new finding. Review of Systems Review of Systems: All other findings negative except as noted in HPI. Physical Exam Constitutional: WD/WN, vitals as above Respiratory: normal respiratory effort, lungs clear to auscultation Cardiovascular: Rate/Rhythm: regular rate and regular rhythm Gastrointestinal (Abdomen): normal bowel sounds, soft, nontender, no hepatosplenomegaly Skin: no rashes, warm and dry Results & Data Results & Data Vital Signs (Past 12 Hours) Vital Signs Temp Pulse Pulse Resp BP BP BP 03/25/25 07:54 97.5 F L 73 22 116/68 03/25/25 07:17 63 03/25/25 04:46 71 03/25/25 03:46 98.2 F 71 18 97/58 L 03/25/25 00:52 98.2 F 72 18 105/69 Pulse Ox O2 Del Method 07/29/25 07:54 97 Room Air 03/25/25 07:17 03/25/25 04:46 03/25/25 03:46 97 Room Air 03/25/25 00:52 97 Laboratory Results 03/25/25 03/25/25 03/25/25 Range/Units 06:17 05:30 00:31 WBC (4.8-10.8) K/ul RBC (4.70-6.10) M/uL Hgb (14.0-18.0) g/dl Hct (42.0-52.0) % MCV (80.0-100.0) fL MCH (25.0-34.0) pg MCHC (32.0-36.0) g/dL RDW Std Deviation (36.4-46.3) fL RDW Coeff of Lincoln (11.5-14.5) % Plt Count (130-400) K/uL MPV (9.4-12.4) fL Immature Gran % (Auto) % Neut % (Auto) % Lymph % (Auto) % Sibley % (Auto) % Eos % (Auto) % Baso % (Auto) % Neut # (Auto) (1.40-6.50) K/uL Lymph # (Auto) (1.20-3.40) K/uL Sibley # (Auto) (0.11-0.59) K/uL Eos # (Auto) (0.00-0.50) K/uL Baso # (Auto) (0.00-0.20) K/uL Immature Gran # (Auto) (0.01-0.20) K/uL Polychromasia Hypochromasia Tear Drop Cells PT (9.0-12.0) Seconds INR (0.9-1.1) APTT (21-31) Seconds PTT Ratio Sodium 138 (136-145) mmol/L Potassium 4.1 (3.5-5.1) mmol/L Chloride 108 H (98-107) mmol/L Carbon Dioxide 23 (21-32) mmol/L Anion Gap 7 (3-11) BUN 19 (6-23) mg/dl Creatinine 1.22 (0.6-1.4) mg/dl Est Cr Clr Drug Dosing 58.2 ml/min eGFR 63.78 BUN/Creatinine Ratio 15.6 (10-20) Glucose 100 H (70-99(Fasting)) mg/dl POC Glucose 111 H 111 H (70-99) mg/dl Estimat Average Glucose 123 mg/dl Hemoglobin A1c 5.9 H (4.5-5.6) % Calcium 8.8 (8.6-10.3) mg/dl Iron 21 L (35-175) mcg/dl TIBC 423 (250-450) mcg/dl Transferrin 302 (200-360) mg/dl Transferrin % Sat 5 L (20-50) % Ferritin 6.4 L (8-388) ng/ml Total Bilirubin 0.6 (0.2-1.0) mg/dl AST 14 (13-39) U/L ALT 9 (7-52) U/L Alkaline Phosphatase 54 (34-104) U/L Troponin I High Sens (0-20) pg/ml Total Protein 6.4 (6.0-8.3) gm/dl Albumin 3.9 (3.4-5.0) gm/dl Globulin 2.5 (2.5-4.0) gm/dl Albumin/Globulin Ratio 1.6 (0.9-2) Lipase (11-82) U/L POC Stool Occult Blood (Negative) Blood Type Blood Type Recheck Antibody Screen Crossmatch 03/25/25 03/24/25 03/24/25 Range/Units 00:29 20:47 17:54 WBC 5.82 (4.8-10.8) K/ul RBC 2.98 L (4.70-6.10) M/uL Hgb 7.0 L (14.0-18.0) g/dl Hct 23.5 L (42.0-52.0) % MCV 78.9 L (80.0-100.0) fL MCH 23.5 L (25.0-34.0) pg MCHC 29.8 L (32.0-36.0) g/dL RDW Std Deviation 46.8 H (36.4-46.3) fL RDW Coeff of Lincoln 16.5 H (11.5-14.5) % Plt Count 174 (130-400) K/uL MPV 10.8 (9.4-12.4) fL Immature Gran % (Auto) % Neut % (Auto) % Lymph % (Auto) % Sibley % (Auto) % Eos % (Auto) % Baso % (Auto) % Neut # (Auto) (1.40-6.50) K/uL Lymph # (Auto) (1.20-3.40) K/uL Sibley # (Auto) (0.11-0.59) K/uL Eos # (Auto) (0.00-0.50) K/uL Baso # (Auto) (0.00-0.20) K/uL Immature Gran # (Auto) (0.01-0.20) K/uL Polychromasia Hypochromasia Tear Drop Cells PT (9.0-12.0) Seconds INR (0.9-1.1) APTT (21-31) Seconds PTT Ratio Sodium (136-145) mmol/L Potassium (3.5-5.1) mmol/L Chloride (98-107) mmol/L Carbon Dioxide (21-32) mmol/L Anion Gap (3-11) BUN (6-23) mg/dl Creatinine (0.6-1.4) mg/dl Est Cr Clr Drug Dosing ml/min eGFR BUN/Creatinine Ratio (10-20) Glucose (70-99(Fasting)) mg/dl POC Glucose 109 H 117 H (70-99) mg/dl Estimat Average Glucose mg/dl Hemoglobin A1c (4.5-5.6) % Calcium (8.6-10.3) mg/dl Iron (35-175) mcg/dl TIBC (250-450) mcg/dl Transferrin (200-360) mg/dl Transferrin % Sat (20-50) % Ferritin (8-388) ng/ml Total Bilirubin (0.2-1.0) mg/dl AST (13-39) U/L ALT (7-52) U/L Alkaline Phosphatase (34-104) U/L Troponin I High Sens (0-20) pg/ml Total Protein (6.0-8.3) gm/dl Albumin (3.4-5.0) gm/dl Globulin (2.5-4.0) gm/dl Albumin/Globulin Ratio (0.9-2) Lipase (11-82) U/L POC Stool Occult Blood (Negative) Blood Type Blood Type Recheck Antibody Screen Crossmatch 03/24/25 03/24/25 03/24/25 Range/Units 16:03 13:54 13:08 WBC (4.8-10.8) K/ul RBC (4.70-6.10) M/uL Hgb (14.0-18.0) g/dl Hct (42.0-52.0) % MCV (80.0-100.0) fL MCH (25.0-34.0) pg MCHC (32.0-36.0) g/dL RDW Std Deviation (36.4-46.3) fL RDW Coeff of Lincoln (11.5-14.5) % Plt Count (130-400) K/uL MPV (9.4-12.4) fL Immature Gran % (Auto) % Neut % (Auto) % Lymph % (Auto) % Sibley % (Auto) % Eos % (Auto) % Baso % (Auto) % Neut # (Auto) (1.40-6.50) K/uL Lymph # (Auto) (1.20-3.40) K/uL Sibley # (Auto) (0.11-0.59) K/uL Eos # (Auto) (0.00-0.50) K/uL Baso # (Auto) (0.00-0.20) K/uL Immature Gran # (Auto) (0.01-0.20) K/uL Polychromasia Hypochromasia Tear Drop Cells PT (9.0-12.0) Seconds INR (0.9-1.1) APTT (21-31) Seconds PTT Ratio Sodium (136-145) mmol/L Potassium (3.5-5.1) mmol/L Chloride (98-107) mmol/L Carbon Dioxide (21-32) mmol/L Anion Gap (3-11) BUN (6-23) mg/dl Creatinine (0.6-1.4) mg/dl Est Cr Clr Drug Dosing ml/min eGFR BUN/Creatinine Ratio (10-20) Glucose (70-99(Fasting)) mg/dl POC Glucose 110 H (70-99) mg/dl Estimat Average Glucose mg/dl Hemoglobin A1c (4.5-5.6) % Calcium (8.6-10.3) mg/dl Iron (35-175) mcg/dl TIBC (250-450) mcg/dl Transferrin (200-360) mg/dl Transferrin % Sat (20-50) % Ferritin (8-388) ng/ml Total Bilirubin (0.2-1.0) mg/dl AST (13-39) U/L ALT (7-52) U/L Alkaline Phosphatase (34-104) U/L Troponin I High Sens (0-20) pg/ml Total Protein (6.0-8.3) gm/dl Albumin (3.4-5.0) gm/dl Globulin (2.5-4.0) gm/dl Albumin/Globulin Ratio (0.9-2) Lipase (11-82) U/L POC Stool Occult Blood Negative (Negative) Blood Type Blood Type Recheck O Positive Antibody Screen Crossmatch 03/24/25 03/24/25 Range/Units 12:04 09:40 WBC (4.8-10.8) K/ul RBC (4.70-6.10) M/uL Hgb (14.0-18.0) g/dl Hct (42.0-52.0) % MCV (80.0-100.0) fL MCH (25.0-34.0) pg MCHC (32.0-36.0) g/dL RDW Std Deviation (36.4-46.3) fL RDW Coeff of Lincoln (11.5-14.5) % Plt Count (130-400) K/uL MPV (9.4-12.4) fL Immature Gran % (Auto) 0.6 % Neut % (Auto) 81.9 % Lymph % (Auto) 9.4 % Sibley % (Auto) 7.9 % Eos % (Auto) 0.1 % Baso % (Auto) 0.1 % Neut # (Auto) 5.48 (1.40-6.50) K/uL Lymph # (Auto) 0.63 L (1.20-3.40) K/uL Sibley # (Auto) 0.53 (0.11-0.59) K/uL Eos # (Auto) 0.01 (0.00-0.50) K/uL Baso # (Auto) 0.01 (0.00-0.20) K/uL Immature Gran # (Auto) 0.04 (0.01-0.20) K/uL Polychromasia 2+ Hypochromasia Present Tear Drop Cells 1+ PT 11.1 (9.0-12.0) Seconds INR 1.0 (0.9-1.1) APTT 26 (21-31) Seconds PTT Ratio 1.0 Sodium 136 (136-145) mmol/L Potassium 4.6 (3.5-5.1) mmol/L Chloride 102 (98-107) mmol/L Carbon Dioxide 24 (21-32) mmol/L Anion Gap 10 (3-11) BUN 28 H (6-23) mg/dl Creatinine 1.39 (0.6-1.4) mg/dl Est Cr Clr Drug Dosing 51.1 ml/min eGFR 54.54 BUN/Creatinine Ratio 20.1 H (10-20) Glucose 171 H (70-99(Fasting)) mg/dl POC Glucose (70-99) mg/dl Estimat Average Glucose mg/dl Hemoglobin A1c (4.5-5.6) % Calcium 9.3 (8.6-10.3) mg/dl Iron (35-175) mcg/dl TIBC (250-450) mcg/dl Transferrin (200-360) mg/dl Transferrin % Sat (20-50) % Ferritin (8-388) ng/ml Total Bilirubin 0.3 (0.2-1.0) mg/dl AST 15 (13-39) U/L ALT 10 (7-52) U/L Alkaline Phosphatase 61 (34-104) U/L Troponin I High Sens 4.6 (0-20) pg/ml Total Protein 7.0 (6.0-8.3) gm/dl Albumin 4.4 (3.4-5.0) gm/dl Globulin 2.6 (2.5-4.0) gm/dl Albumin/Globulin Ratio 1.7 (0.9-2) Lipase 88 H (11-82) U/L POC Stool Occult Blood (Negative) Blood Type O Positive Blood Type Recheck Antibody Screen NEGATIVE Crossmatch See Detail PG Care Time/CCT Total # of Minutes Spent Total Time Spent with Patient: Total time spent is greater than 50% in coordination of care (as documented) at patient's floor/unit and/or counseling patient: Coding Level of Care Code None Diagnoses Weight loss R63.4 Anemia D64.9
--- NOTE | 2025-03-25 11:24 | Anesthesiology Consultation ---
Date of Service March 25, 2025 Assessment & Plan Chart Review Chart Review: Acceptable Risk for Surgery and Patient NOT seen in Pre Admission Testing Consults Requested none ASA ASA4 Proposed Anesthesia Anesthesia Type: MAC Risk / Benefits Reviewed With: PT / POA / Parent / Guardian, Accepts Plan and Informed Consent Obtained History Surgery Operation Date: 03/25/25 16:30 Proposed Procedures p Esophagogastroduodenoscopy Dr. Zuleima Dewey MD Height/Weight Height: 5 ft 10 in Weight: 86.6 kg Allergies Allergy/AdvReac Type Severity Reaction Status Date / Time Opioids - Morphine Analogues AdvReac "all kind Verified 03/24/25 11:44 of bad stuff" Medications Home Medications Medication Instructions Recorded Confirmed Last Taken aspirin 81 mg tablet,delayed 81 mg PO QPM 12/18/19 03/24/25 03/23/25 release pen needle, diabetic 32 gauge x #300 ea 06/27/23 10/04/24 Unknown " (BD Ultra-Fine Beverly Pen Needle) blood sugar diagnostic (OneTouch #400 ea 03/12/24 10/04/24 Unknown Verio test strips) metformin 500 mg tablet,extended 1,000 mg (2 x 500 mg) PO BID #360 05/21/24 03/24/25 03/24/25 release 24 hr tabs atorvastatin 40 mg tablet 40 mg PO HS #100 tabs 06/14/24 03/24/25 03/23/25 omeprazole 40 mg capsule,delayed 40 mg PO DAILY #30 caps 12/11/24 03/24/25 03/24/25 release gabapentin 800 mg tablet 800 mg PO TID 03/24/25 03/24/25 03/24/25 ibuprofen 200 mg tablet 800 mg PO BID 03/24/25 03/24/25 03/24/25 insulin glargine 100 unit/mL (3 38 unit subcut HS 03/24/25 03/24/25 03/23/25 mL) subcutaneous pen (Lantus Solostar U-100 Insulin) Active Medications Generic Name Dose Route Start Last Admin Trade Name Freq PRN Reason Stop Dose Admin Gabapentin 800 mg 03/24/25 21:00 03/25/25 09:22 Gabapentin 800 Mg Tab PO 04/23/25 20:59 800 mg TID SUYAPA Administration Pantoprazole Sodium 40 mg/ 100 mls @ 20 mls/hr 03/24/25 11:30 03/25/25 10:29 Dextrose IV 04/23/25 11:29 0 mg/hr Q5H SUYAPA 0 mls/hr Infusion 8 MG/HR Lactated Ringer's 1,000 mls @ 80 mls/hr 03/24/25 18:45 03/25/25 10:29 Lr IV 03/27/25 18:44 0 mls/hr .[id number] SUYAPA Infusion Insulin Aspart 0 units 03/24/25 14:30 03/25/25 06:26 Insulin Aspart Per Unit Charge SC 04/23/25 14:29 Not Given Q6 SUYAPA Insulin Glargine 0 units 03/24/25 21:00 03/24/25 20:48 Lantus Per Unit Charge SC 04/23/25 20:59 Not Given HS SUYAPA Protocol NPO Date Last Intake of Fluids: 03/25/25 Time Last Intake of Fluids: 09:20 Date Last Intake of Solids: 03/24/25 Time Last Intake of Solids: 06:30 Past Medical History Medical History Hypomagnesemia Hypercalcemia Complicated UTI (urinary tract infection) Renal abscess Reactive depression (situational) 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 difficile colitis High cholesterol Hydronephrosis Malignant neoplasm of bladder Situational anxiety Malignant tumor of urinary bladder History of primary bladder cancer Diverticulitis Intractable pain Bladder cancer (08/08/17) "LUTS and Back pain Status post CT revealing bladder neoplasm Status post emergency room evaluation and transfer to [facility] 08/07/2017 Status post cystoscopy and transurethral resection of bladder tumor 08/08/2017 Right retrograde ureteral stent and placement of Hernandez catheter" Dyslipidemia Chronic back pain Diabetes mellitus Exercise / Class Metabolic Activity III < 4 Walking/Shop/Light housework Past Family History Family History Mother Colorectal cancer Heart disease Diabetes Cardiac disorder Myocardial infarction Father Hypertension Myocardial infarction Sister Breast cancer Denies family history of Ovarian cancer Prostate cancer Past Surgical History Surgical History History of urostomy History of back surgery (03/21/20) L2-S1 fusion S/P ureteral stent placement History of coronary angioplasty S/P tooth extraction S/P colonoscopy History of ankle surgery Past Anesthesia History No Hx of Anesthesia Complications and No Family Hx of Anesthesia Complications History of PONV No Hx of PONV and No Hx of Motion Sickness Social History Smoking Status: Former smoker Do You Dip or Chew Tobacco: No Hx Alcohol Use: No Alcohol type: hard liquor alcohol intake frequency: holidays/special occasions only Hx Substance Use: No Physical Exam Vital Signs Last Vital Signs Temp 36.9 C 03/25/25 11:05 Pulse 77 03/25/25 11:05 Resp 16 03/25/25 11:05 BP 130/88 03/25/25 11:05 Pulse Ox 99 03/25/25 11:05 O2 Del Method Room Air 03/25/25 11:05 Constitutional no acute distress and not obese ENMT Mouth: + dentition abnormality and + dentures Thyromental Distance: > or= 3.5 Finger Breadths Mallampati Class: II Neck normal visual inspection, trachea midline and + facial hair; neck extension not limited Respiratory normal respiratory effort Auscultation: + diminished lung sounds Cardiovascular Rate/Rhythm: regular rate and regular rhythm Heart Sounds: no murmur Vessels: no carotid bruit Musculoskeletal Spine: normal cervical ROM and no pain with cervical ROM Extremities: full ROM of extremities Neurologic moves all extremities Motor/Sensory: no sensory deficit Psychiatric Orientation: alert and oriented x 3 Testing Laboratory Results 03/25/25 00:29 03/25/25 05:30 PT 11.1 Seconds (9.0-12.0) 03/24/25 12:04 INR 1.0 (0.9-1.1) 03/24/25 12:04 APTT 26 Seconds (21-31) 03/24/25 12:04 Hemoglobin A1c 5.9 % (4.5-5.6) H 03/25/25 05:30 Blood Type O Positive 03/24/25 12:04 Antibody Screen NEGATIVE 03/24/25 12:04 03/25/25 03/25/25 06:17 00:31 POC Glucose 111 H 111 H Electrocardiogram Date: 03/24/25 Findings: + NSR @ (@ 73;? infer. infarct,age ?)
[2025-03-25] MEDS ORDERED: ATROPINE SULFATE 0.1 MG/ML 10ML SYR IV PRN (11:27)
--- NOTE | 2025-03-25 12:01 | GI REPORT ---
[facility] Patient: LIZET JONES : 1955 Sex at : Male Age: 69 Years Procedure: Upper GI endoscopy Date: 03/25/2025 Attending Physician: Eben Dewey MD Referring MD: Vasyl Westbrook Indications: - Dysphagia Medications: - Monitored Anesthesia Care Complications: - No immediate complications. Procedure: - Prior to the procedure, a History and Physical was performed, and patient medications and allergies were reviewed. The patient's tolerance of previous anesthesia was also reviewed. The risks and benefits of the procedure and the sedation options and risks were discussed with the patient. All questions were answered, and informed consent was obtained. [Anticoagulant Agents] [Days Prior to Procedure]. [ASA Grade]. After reviewing the risks and benefits, the patient was deemed in satisfactory condition to undergo the procedure. - The egd scope was introduced through the mouth and advanced to the second part of the duodenum. - The upper GI endoscopy was accomplished without difficulty. - The patient tolerated the procedure well. Findings: - A large, fungating and ulcerating mass with bleeding [Stigmata of bleeding] was found at the gastroesophageal junction, 40 cm from the incisors. The mass was partially obstructing and circumferential. in the gastric cardia [Siewert Classification]. Biopsies were taken with a cold forceps for histology. - A large, ulcerated and fungating, [Circumferential] mass with oozing bleeding [Stigmata of bleeding] was found in the cardia and in the gastric fundus. [Epicenter Location] [Siewert Classification]. Biopsies were taken with a cold forceps for histology. - The examined duodenum was normal. Impression: - Partially obstructing esophageal tumor was found at the gastroesophageal junction. Biopsied. - Gastric tumor in the cardia and in the gastric fundus. Biopsied. - Normal examined duodenum. Recommendation: - Resume previous diet. - Patient has a contact number available for emergencies. The signs and symptoms of potential delayed complications were discussed with the patient. Return to normal activities tomorrow. Written discharge instructions were provided to the patient. Procedure Code(s): - 18902, Esophagogastroduodenoscopy, flexible, transoral; with biopsy, single or multiple Diagnosis Code(s): - R13.10, Dysphagia, unspecified - D49.0, Neoplasm of unspecified behavior of digestive system CPT(R) - 2023 copyright [employer]. All Rights Reserved. The CPT codes, CCI edits and ICD codes generated are intended as suggestions and were generated based on input data. These codes are preliminary and upon resin shaver review may be revised to meet current compliance and payer requirements. The provider is responsible for the final determination of appropriate codes, and modifiers. Eben Dewey MD This document has been electronically signed. Note Initiated:03/25/2025 Note Completed:03/25/2025 12:00 PM [id number]
[2025-03-25] MEDS: LIDOCAINE 2% 2 ML VIAL/AMP(20MG/ML) INFIL ONE (13:05)
[2025-03-25] MEDS: PROPOFOL IV EMULSION 10 MG/ML 20 ML VIAL IV ONE (13:06)
--- NOTE | 2025-03-25 13:19 | Anesthesiology Progress Note ---
Date of Service March 25, 2025 Anesthesia Post Procedure Vital Signs Vital Signs: Temp Pulse Pulse Resp BP BP BP 03/25/25 13:00 36.8 C 77 18 126/77 03/25/25 12:30 75 18 126/89 03/25/25 12:15 67 17 129/71 03/25/25 11:59 70 16 120/71 03/25/25 11:05 36.9 C 77 16 130/88 03/25/25 07:54 36.4 C L 73 22 116/68 03/25/25 07:17 63 03/25/25 04:46 71 03/25/25 03:46 36.8 C 71 18 97/58 L 03/25/25 00:52 36.8 C 72 18 105/69 03/24/25 22:26 36.8 C 72 18 105/69 03/24/25 20:31 36.9 C 73 18 101/65 03/24/25 19:31 37.1 C 68 18 110/66 03/24/25 19:01 37.2 C 67 18 109/66 03/24/25 18:46 37.1 C 74 18 134/74 03/24/25 18:39 37.1 C 74 18 134/74 03/24/25 18:25 37.2 C 75 18 118/73 03/24/25 17:36 37.1 C 16 125/70 03/24/25 16:31 03/24/25 16:20 37.1 C 70 18 112/61 03/24/25 16:09 72 03/24/25 15:45 36.6 C 70 18 126/76 03/24/25 15:15 36.4 C L 18 134/77 03/24/25 14:50 36.8 C 68 18 119/74 03/24/25 14:33 36.8 C 70 18 125/74 03/24/25 14:18 68 03/24/25 14:16 36.7 C 68 18 105/63 Pulse Ox O2 Del Method 03/25/25 13:00 99 Room Air 03/25/25 12:30 96 Room Air 03/25/25 12:15 96 Room Air 03/25/25 11:59 95 Room Air 03/25/25 11:05 99 Room Air 03/25/25 07:54 97 Room Air 03/25/25 07:17 03/25/25 04:46 03/25/25 03:46 97 Room Air 03/25/25 00:52 97 03/24/25 22:26 97 Room Air 03/24/25 20:31 95 03/24/25 19:31 98 03/24/25 19:01 97 03/24/25 18:46 94 03/24/25 18:39 03/24/25 18:25 03/24/25 17:36 03/24/25 16:31 Room Air 03/24/25 16:20 03/24/25 16:09 03/24/25 15:45 95 03/24/25 15:15 96 Room Air 03/24/25 14:50 99 03/24/25 14:33 99 03/24/25 14:18 03/24/25 14:16 94 Pain Intensity Chest: Pain Intensity: 5 Transfer of Care Handoff Completed per policy Notes Mental Status: alert / awake / arousable Patient Amnestic to Procedure: Yes Nausea / Vomiting: adequately controlled Pain: adequately controlled Airway Patency, RR, SpO2: stable & adequate BP & HR: stable & adequate Hydration State: stable & adequate Anesthetic Complications: no major complications apparent
[2025-03-25] MEDS ORDERED: Nursing to Pharmacy Communication SCH (13:30)
[2025-03-25] MEDS: INSULIN ASPART PER UNIT CHARGE SC SCH ×2 (14:23→17:52)
[2025-03-25] MEDS: IRON SUCROSE 300 MG in SODIUM CHLORIDE 0.9% 250 ML IV ONE (17:45)
--- NOTE | 2025-03-25 18:12 | Oncology Consultation ---
Date of Consultation March 25, 2025 Assessment & Plan (1) Symptomatic anemia: (2) Gastric mass: Plan Gentleman who presented with severe iron deficiency anemia found to have gastric mass on upper endoscopy.CT CAP concerning for extensive disease -Await biopsy results -Will likely need outpatient PET/CT to evaluate for metastatic disease. If he does not have metastatic disease, will refer to tertiary center for evaluation by surgical oncology to see if he would be a surgical candidate. May need neoadjuvant systemic therapy if he is a surgical candidate. -Recommend giving IV iron sucrose 300 mg daily for 2 to 3 days for iron deficiency anemia Thank you for this consult. Patient to follow-up with me outpatient. Please feel free to call if you have any further questions. History of Present Illness Reason for Consultation: Gastric mass Attending Physician: Delvin Zaman History of Present Illness 69-year-old gentleman who presented to [facility] on 03/24/2025 with weight loss, chest pain, shortness of breath. Labs revealed severe anemia with hemoglobin of 5.7, hematocrit 19.8, MCV 78.0 with iron studies revealing transferrin saturation of 5%, serum iron of 21, ferritin of 6.4. CT CAP on 03/24/2025 revealed multiple hepatic lesions, collapsed stomach with mild concentric thickening near the gastroesophageal junction, gastric cardia and proximal body of stomach with mild perigastric fat stranding, few lymph nodes adjacent to the gastric cardia, tiny jamaal deposits involving greater omentum in the right mid and lower quadrant as well as 3 mm sized solid nodule in the superior segment of the right lower lobe, few subpleural groundglass nodules in the posterior basal segment of bilateral lower lobes. Upper endoscopy obtained today due to complaints of dysphagia and iron deficiency anemia revealed large fungating and ulcerating mass with bleeding in the GE junction, 40 cm from the incisors, mass was partially obstructing and circumferential in the gastric cardia. Allergies Allergy/AdvReac Type Severity Reaction Status Date / Time Opioids - Morphine Analogues AdvReac "all kind Verified 03/24/25 11:44 of bad stuff" Home Medications Medication Instructions Recorded Confirmed Type aspirin 81 mg tablet,delayed 81 mg PO QPM 12/18/19 03/24/25 History release pen needle, diabetic 32 gauge x #300 ea 06/27/23 10/04/24 Rx " (BD Ultra-Fine [place] Pen Needle) blood sugar diagnostic (OneTouch #400 ea 03/12/24 10/04/24 Rx Verio test strips) metformin 500 mg tablet,extended 1,000 mg (2 x 500 mg) PO BID #360 05/21/24 03/24/25 Rx release 24 hr tabs atorvastatin 40 mg tablet 40 mg PO HS #100 tabs 06/14/24 03/24/25 Rx omeprazole 40 mg capsule,delayed 40 mg PO DAILY #30 caps 12/11/24 03/24/25 Rx release gabapentin 800 mg tablet 800 mg PO TID 03/24/25 03/24/25 History ibuprofen 200 mg tablet 800 mg PO BID 03/24/25 03/24/25 History insulin glargine 100 unit/mL (3 38 unit subcut HS 03/24/25 03/24/25 History mL) subcutaneous pen (Lantus Solostar U-100 Insulin) Patient History Medical History Hypomagnesemia Hypercalcemia Complicated UTI (urinary tract infection) Renal abscess Reactive depression (situational) 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 difficile colitis High cholesterol Hydronephrosis Malignant neoplasm of bladder Situational anxiety Malignant tumor of urinary bladder History of primary bladder cancer Diverticulitis Intractable pain Bladder cancer (08/08/17) "LUTS and Back pain Status post CT revealing bladder neoplasm Status post emergency room evaluation and [facility]07[facility]2017 Status post cystoscopy and transurethral resection of bladder tumor 08/08/2017 Right retrograde ureteral stent and placement of Hernandez catheter" Dyslipidemia Chronic back pain Diabetes mellitus Surgical History History of urostomy History of back surgery (03/21/20) L2-S1 fusion S/P ureteral stent placement History of coronary angioplasty S/P tooth extraction S/P colonoscopy History of ankle surgery Family History Mother Colorectal cancer Heart disease Diabetes Cardiac disorder Myocardial infarction Father Hypertension Myocardial infarction Sister Breast cancer Denies family history of Ovarian cancer Prostate cancer Social History Smoking Status: Former smoker Tobacco Type: Cigarettes Age Started Using Tobacco: 16; Age Quit Using Tobacco: 56; packs per day: 1; Second Hand Exposure: No; Do You Dip or Chew Tobacco: No; Hx Alcohol Use: No Hx Substance Use: No Preferred Language: [place] Communication Ability: Effective Visual Impairment: Limited Hearing Ability: Normal Brusher Warp Required: No Beliefs That Will Affect Care: None marital status: Current Living Situation: Spouse current occupational status: retired How many Children do You have: 2 Feels Safe at Home: Yes Childhood Exposure to Second-Hand Smoke: Yes Diet: regular caffeine: Yes Dental Care, Regularly: No Physical Activity Frequency: Daily Seatbelt Use: always Sunscreen Use: No Assistive Devices: Glasses Results & Data Vital Signs (Past 12 Hours) Vital Signs Temp Pulse Pulse Resp BP Pulse Ox O2 Del Method 03/25/25 16:31 36.8 C 81 18 133/71 99 Room Air 03/25/25 14:36 76 03/25/25 13:30 36.5 C 80 18 141/65 H 100 Room Air 03/25/25 13:00 36.8 C 77 18 126/77 99 Room Air 03/25/25 12:30 75 18 126/89 96 Room Air 03/25/25 12:15 67 17 129/71 96 Room Air 03/25/25 11:59 70 16 120/71 95 Room Air 03/25/25 11:05 36.9 C 77 16 130/88 99 Room Air 03/25/25 07:54 36.4 C L 73 22 116/68 97 Room Air 03/25/25 07:17 63
[2025-03-25 18:27] LABS: Folate (Folic Acid),Ser orPlas 13.04 ng/ml (>5.38)
[2025-03-25 18:28] LABS: Vitamin B12 392.0 pg/ml (180-914)
--- NOTE | 2025-03-25 23:02 | Hospitalist Progress Note ---
Date of Service March 25, 2025 Assessment & Plan (1) Symptomatic anemia: (2) Weight loss: (3) Diabetes mellitus type 2, controlled, with complications: (4) GERD (gastroesophageal reflux disease): (5) Hypertension: (6) CAD (coronary artery disease): Plan # Acute Blood loss anemia May be secondary to NSAID use as patint takes Ibuprofen Consulted gastro. will obtain GI scope tomorrow. will obtain iron studies consent obtained for transfusion. will transfuse 2 units of PRBC as anemia is significantly below 7 and 1 unit would not be enough. #unintentional weight loss Will obtain ct chest ct abd/pelvis # Diabetes mellitus type 2, uncontrolled, with complications: Plan: consulted glycemic control # Depression: Plan: will hold oral meds citalopram and resume in AM #CAD (coronary artery disease): Plan: due to concer for GI bleed will hold aspirin will also hold atorvastatin just to limit any oral intake during this crucial time but will likely resume tomorrow. #Obstructive sleep apnea: Plan: CPAP HS # Hypertension: Plan: Lisinopril no longer listed on meds. BP at goal. will monitor. Admission and Anticipated Discharge Date Admission Date: March 24, 2025 Subjective Patient reports no new symptoms. Physical Exam Constitutional: WD/WN, vitals as above Eyes: PERRL, conjunctivae normal, anicteric sclerae ENMT: external ear and nose normal, oropharynx normal Neck: trachea midline, no thyromegaly Respiratory: normal respiratory effort, lungs clear to auscultation Cardiovascular: RRR, no murmur, no edema Gastrointestinal (Abdomen): normal bowel sounds, soft, nontender, no hepatosplenomegaly Musculoskeletal: no cyanosis or clubbing, extremities motor strength 5/5 Skin: no rashes, warm and dry Neurologic: PERRL, EOMI, accommodation nl, no face palsy, no dysarthria Psychiatric: A+Ox3, euthymic affect Lymphatic: no cervical or axillary lymphadenopathy Results & Data Results & Data Vital Signs (Past 12 Hours) Vital Signs Temp Pulse Pulse Resp BP Pulse Ox O2 Del Method 03/25/25 19:45 37.0 C 75 18 128/83 98 Room Air 03/25/25 16:31 36.8 C 81 18 133/71 99 Room Air 03/25/25 14:36 76 03/25/25 13:30 36.5 C 80 18 141/65 H 100 Room Air 03/25/25 13:00 36.8 C 77 18 126/77 99 Room Air 03/25/25 12:30 75 18 126/89 96 Room Air 03/25/25 12:15 67 17 129/71 96 Room Air 03/25/25 11:59 70 16 120/71 95 Room Air 03/25/25 11:05 36.9 C 77 16 130/88 99 Room Air PG Care Time/CCT Total # of Minutes Spent Total Time Spent with Patient: Total time spent is greater than 50% in coordination of care (as documented) at patient's floor/unit and/or counseling patient: Coding Level of Care Code 50160 SUB INP/OBS CARE 3/50MIN Diagnoses Symptomatic anemia D64.9 Weight loss R63.4 Diabetes mellitus type 2, controlled, with complications E11.8 GERD (gastroesophageal reflux disease) K21.9 Primary hypertension I10 Hypertension type: primary hypertension Coronary artery disease involving [place] heart without angina pectoris, unspecified vessel or lesion type I25.10 Associated angina: without angina Coronary Disease-Associated Artery/Lesion type: unspecified vessel or lesion type [place] vs. transplanted heart: [place] heart (5) Hypertension Hypertension type: primary hypertension Qualified Code(s): I10 - Essential (primary) hypertension (6) CAD (coronary artery disease) Associated angina: without angina Coronary Disease-Associated Artery/Lesion type: unspecified vessel or lesion type [place] vs. transplanted heart: [place] heart Qualified Code(s): I25.10 - Atherosclerotic heart disease of [place] coronary artery without angina pectoris
[2025-03-26 06:07] LABS: Hematocrit (blood only) 24.0 % (42.0-52.0); Hemoglobin 7.1 g/dl (14.0-18.0); Mean Corpuscular Hemoglobin 23.3 pg (25.0-34.0); Mean Corpuscular Volume 78.7 fL (80.0-100.0); Platelet Count 186 K/uL (130-400); RDW Standard Deviation 45.7 fL (36.4-46.3); Red Blood Count 3.05 M/uL (4.70-6.10); White Blood Count 5.24 K/ul (4.8-10.8)
[2025-03-26 06:31] LABS: Anion Gap 7.0 (3-11); Blood Urea Nitrogen 14.0 mg/dl (6-23); Calcium 8.6 mg/dl (8.6-10.3); Carbon Dioxide 25.0 mmol/L (21-32); Chloride 107.0 mmol/L (98-107); Creatinine Clr Calc Pharmacy 66.3 ml/min; Glucose 128.0 mg/dl (70-99(Fasting)); Potassium 4.0 mmol/L (3.5-5.1); Sodium 139.0 mmol/L (136-145)
--- NOTE | 2025-03-26 10:57 | Gastroenterology Progress Note ---
Date of Service March 26, 2025 Assessment & Plan (1) Weight loss: (2) Anemia: Plan 69 year old male with history of T2DM, GERD, bladder CA, depression, hyperlipidemia, CAD, HTN, NIDIA and others below presenting through the ED w/ dizziness and CP - admitted w/ anemia, HGB of 5.7 He endorses weight loss, solid/liquids dysphagia and chronic nausea s/p EGD w/ partially obstructive esophageal mass - Management per hematology/oncology - Follow biopsies once return - Recall GI as needed I spent a total of 30 minutes on the date of service in review of patient's record, and previously obtained information in person and appropriate medical visit, discussion and education of plan, with patient and/or caregiver, placing orders for tests/referral/procedures as medically necessary and documentation of pertinent clinical information in patient's medical records for their visit tomi kelly. Admission and Anticipated Discharge Date Admission Date: March 24, 2025 Supervising Physician Co-Signing Physician Notes I saw and examined this patient with our nurse practitioner and agree with her assessment and plan. Endoscopy revealed a large distal esophageal mass extending into the cardia. Pathology pending suspicious for adenocarcinoma. This also probably explains his hemoglobin drop. Await oncology input. Subjective Discussed findings on EGD. Aware pathology is still pending. Was evaluated by oncology. Offers no questions/concerns this AM. EGD 2024: Partially obstructing esophageal tumor was found at the gastroesophageal junction. Biopsied. - Gastric tumor in the cardia and in the gastric fundus. Biopsied. - Normal examined duodenum. Review of Systems Review of Systems: All other findings negative except as noted in HPI. Physical Exam Gastrointestinal (Abdomen): normal bowel sounds, soft, nontender, no hepatosplenomegaly Results & Data Results & Data Vital Signs (Past 12 Hours) Vital Signs Temp Pulse Resp BP Pulse Ox O2 Del Method 03/26/25 07:51 98.4 F 75 19 136/78 97 Room Air 03/26/25 02:47 98.2 F 69 18 121/78 95 Room Air 03/25/25 23:30 98.2 F 70 18 127/79 98 Room Air Laboratory Results 03/26/25 03/26/25 03/25/25 Range/Units 07:55 05:17 21:03 WBC 5.24 (4.8-10.8) K/ul RBC 3.05 L (4.70-6.10) M/uL Hgb 7.1 L (14.0-18.0) g/dl Hct 24.0 L (42.0-52.0) % MCV 78.7 L (80.0-100.0) fL MCH 23.3 L (25.0-34.0) pg MCHC 29.6 L (32.0-36.0) g/dL RDW Std Deviation 45.7 (36.4-46.3) fL RDW Coeff of [place] 16.1 H (11.5-14.5) % Plt Count 186 (130-400) K/uL MPV 11.3 (9.4-12.4) fL Sodium 139 (136-145) mmol/L Potassium 4.0 (3.5-5.1) mmol/L Chloride 107 (98-107) mmol/L Carbon Dioxide 25 (21-32) mmol/L Anion Gap 7 (3-11) BUN 14 (6-23) mg/dl Creatinine 1.07 (0.6-1.4) mg/dl Est Cr Clr Drug Dosing 66.3 ml/min eGFR 74.65 BUN/Creatinine Ratio 13.1 (10-20) Glucose 128 H (70-99(Fasting)) mg/dl POC Glucose 150 H 119 H (70-99) mg/dl Calcium 8.6 (8.6-10.3) mg/dl Vitamin B12 (180-914) pg/ml Folate (>5.38) ng/ml 03/25/25 03/25/25 03/25/25 Range/Units 16:38 13:53 05:30 WBC (4.8-10.8) K/ul RBC (4.70-6.10) M/uL Hgb (14.0-18.0) g/dl Hct (42.0-52.0) % MCV (80.0-100.0) fL MCH (25.0-34.0) pg MCHC (32.0-36.0) g/dL RDW Std Deviation (36.4-46.3) fL RDW Coeff of [place] (11.5-14.5) % Plt Count (130-400) K/uL MPV (9.4-12.4) fL Sodium (136-145) mmol/L Potassium (3.5-5.1) mmol/L Chloride (98-107) mmol/L Carbon Dioxide (21-32) mmol/L Anion Gap (3-11) BUN (6-23) mg/dl Creatinine (0.6-1.4) mg/dl Est Cr Clr Drug Dosing ml/min eGFR BUN/Creatinine Ratio (10-20) Glucose (70-99(Fasting)) mg/dl POC Glucose 232 H 155 H (70-99) mg/dl Calcium (8.6-10.3) mg/dl Vitamin B12 392 (180-914) pg/ml Folate 13.04 (>5.38) ng/ml PG Care Time/CCT Total # of Minutes Spent Total Time Spent with Patient: Total time spent is greater than 50% in coordination of care (as documented) at patient's floor/unit and/or counseling patient: Coding Level of Care Code 20776 SUB INP/OBS CARE 1/25MIN Diagnoses Weight loss R63.4 Anemia D64.9
--- NOTE | 2025-03-26 11:19 | Hospitalist Progress Note ---
Date of Service March 26, 2025 Assessment & Plan (1) Esophageal mass: Plan: EGD showing Partially obstructing esophageal tumor was found at the gastroesophageal junction. Biopsied. Gastric tumor in the cardia and in the gastric fundus. Awaiting biopsy results Case management arranging out patient tertiary care hospital follow up Heme-onc following (2) Symptomatic anemia: Plan: pt receiving IV iron heme stable at 7.0 (3) Diabetes mellitus type 2, controlled, with complications: Plan: -RISS -pharm for glycemic management (4) GERD (gastroesophageal reflux disease): Plan: -protonix (5) Hypertension: Plan: -BP stable (6) CAD (coronary artery disease): Plan: -asa held 2nd to GI bleed risk Plan # Acute Blood loss anemia May be secondary to NSAID use as patint takes Ibuprofen Consulted gastro. GI scope will be completed tomorrow will consult heme/onc. will transfuse 2 units of PRBC as anemia is significantly below 7 and 1 unit would not be enough. #unintentional weight loss lost 30 pounds in oast few months. ordered ct imaging of chest abd/pelvis # Diabetes mellitus type 2, uncontrolled, with complications: Plan: consulted glycemic control # Depression: Plan: will hold oral meds citalopram #CAD (coronary artery disease): Plan: due to concer for GI bleed will hold aspirin will also hold atorvastatin just to limit any oral intake during this crucial time but will likely resume soon. #Obstructive sleep apnea: Plan: CPAP HS # Hypertension: Plan: Lisinopril no longer listed on meds. BP at goal. will monitor. Admission and Anticipated Discharge Date Admission Date: March 24, 2025 Subjective No events overnight. Pt found resting comfortably in bed. Review of Systems Review of Systems: CONST: Negative for fever, body aches and chills. HENT: Negative for neck pain/stiffness, headache, congestion, sore throat, swelling. EYES: Negative for discharge/pain or vision changes. RESP: Negative for cough/hemoptysis and shortness of breath. CV: Negative chest pain, difficulty breathing, palpitations. ABD: Negative pain, nausea, vomiting. : Negative increase frequency, dysuria, blood in urine or stool. MUSC: Negative for muscle aches, edema. SKIN: Negative rash, lesions/sores. NEURO: Negative headache, dizziness, weakness. Physical Exam Physical Exam: GENERAL APPEARANCE NAD, activity normal for age, well developed/ well nourished, no cyanosis, pallor, or diaphoresis. EYES lids/conjunctiva normal. EARS/NOSE/THROAT Mucous membranes moist, nares normal, lips/teeth normal uvula midline without oral pharyngeal erythema, exudate or swelling TMs normal bilaterally. No lymphangitis/lymphedema. HEAD/NECK normocephalic atraumatic, no facial trauma, neck is supple. RESPIRATORY respiratory effort normal, speaks in full sentences, no tripod position, no accessory muscle use. Lungs clear to auscultation without rhonchi, wheezes, rales CARDIAC Regular rate and rhythm, no edema. ABDOMINAL Soft, ND/NT. No evidence of fluid wave. No pulsatile masses on exam, rebound tenderness, Grace sign or pain over Mcburney's point. MUSCLES/EXTREMITIES No abnormal range of motion, no swelling. SKIN Warm, pink and dry. No rashes, dermatoses, petechiae or lesions. NEUROLOGICAL Speech is clear and appropriate. Normal level of consciousness. Gait and coordination are normal. 5/5 strength in all extremities. PSYCH Normal mood and affect. Judgement/competence is appropriate Results & Data Results & Data Vital Signs (Past 12 Hours) Vital Signs Temp Pulse Resp BP Pulse Ox O2 Del Method 03/26/25 07:51 36.9 C 75 19 136/78 97 Room Air 03/26/25 02:47 36.8 C 69 18 121/78 95 Room Air 03/25/25 23:30 36.8 C 70 18 127/79 98 Room Air PG Care Time/CCT Total # of Minutes Spent Total Time Spent with Patient: Total time spent is greater than 50% in coordination of care (as documented) at patient's floor/unit and/or counseling patient: Coding Level of Care Code 11221 SUB INP/OBS CARE 2/35MIN Diagnoses Esophageal mass K22.89 Symptomatic anemia D64.9 Diabetes mellitus type 2, controlled, with complications E11.8 GERD (gastroesophageal reflux disease) K21.9 Primary hypertension I10 Hypertension type: primary hypertension Coronary artery disease involving [place] heart without angina pectoris, unspecified vessel or lesion type I25.10 Coronary Disease-Associated Artery/Lesion type: unspecified vessel or lesion type [place] vs. transplanted heart: [place] heart Associated angina: without angina (5) Hypertension Hypertension type: primary hypertension Qualified Code(s): I10 - Essential (primary) hypertension (6) CAD (coronary artery disease) Coronary Disease-Associated Artery/Lesion type: unspecified vessel or lesion type [place] vs. transplanted heart: [place] heart Associated angina: without angina Qualified Code(s): I25.10 - Atherosclerotic heart disease of [place] coronary artery without angina pectoris
--- NOTE | 2025-03-26 11:21 | Pharmacy Report ---
Pharmacy Glycemic Short Note 2 - Date of Service March 26, 2025 - Glycemic Short BSG Results (Last 24 hours): 03/25/25 03/25/25 03/25/25 13:53 16:38 21:03 Glucose POC Glucose 155 H 232 H 119 H 03/26/25 03/26/25 05:17 07:55 Glucose 128 H POC Glucose 150 H OUTPATIENT ANTIDIABETIC REGIMEN: * Lantus 38 units SC HS * Metformin 1000 mg PO BIDM HbA1c: 6.4% (10/01/24), reordered for 03/25/25 ASSESSMENT: 03/25: * Nishant received 7 unit of bolus insulin yesterday * Fasting BSG this AM within goal, but up trending with diet advancement to clears. Will increase basal scale to give some basal up to about half of home basal dose based on BSG. * May need to tighten carbohydrate ratio, will continue to monitor. 03/24: * DM is a 69 year old male admitted for evaluation of anemia w/ concomitant chest pain, dizziness, and weight loss * Blood sugar on presentation of 171 mg/dL, reportedly administered 38 units of Lantus last evening * Patient is currently NPO * Ordered continuous pantoprazole gtt (mixed in dextrose) PLAN FOR INPATIENT GLYCEMIC CONTROL: * Hold outpatient oral diabetes medications * Basal insulin * Lantus 0-20 units SQ HS (see eMAR for additional details) * Bolus insulin * NovoLog per scale ACHS or Q6hrs while NPO * Goal Range: Low 120 mg/dL - High 160 mg/dL * Correction Factor: 25 mg/dL/unit * Nutritional / Prandial insulin per carb ratio of 1 unit per 9 grams CHO consumed
[2025-03-26] MEDS: IRON SUCROSE 300 MG in SODIUM CHLORIDE 0.9% 250 ML IV ONE (12:27)
[2025-03-26] MEDS: LANTUS PER UNIT CHARGE SC ONE (21:04)
[2025-03-27] MEDS ORDERED: Nursing to Pharmacy Communication SCH (01:15)
[2025-03-27] MEDS: ACETAMINOPHEN 325 MG TAB PO PRN (05:50)
[2025-03-27 06:36] LABS: Hematocrit (blood only) 22.6 % (42.0-52.0); Hemoglobin 6.9 g/dl (14.0-18.0); Mean Corpuscular Hemoglobin 24.2 pg (25.0-34.0); Mean Corpuscular Volume 79.3 fL (80.0-100.0); Platelet Count 182 K/uL (130-400); RDW Standard Deviation 46.7 fL (36.4-46.3); Red Blood Count 2.85 M/uL (4.70-6.10); White Blood Count 5.44 K/ul (4.8-10.8)
[2025-03-27] MEDS ORDERED: SODIUM CHLORIDE 0.9% 100 ML IV PRN (06:38)
[2025-03-27 06:46] LABS: Anion Gap 6.0 (3-11); Blood Urea Nitrogen 9.0 mg/dl (6-23); Calcium 8.6 mg/dl (8.6-10.3); Carbon Dioxide 26.0 mmol/L (21-32); Chloride 107.0 mmol/L (98-107); Creatinine Clr Calc Pharmacy 73.2 ml/min; Glucose 115.0 mg/dl (70-99(Fasting)); Potassium 3.8 mmol/L (3.5-5.1); Sodium 139.0 mmol/L (136-145)
--- NOTE | 2025-03-27 10:15 | Hospitalist Progress Note ---
Date of Service March 27, 2025 Assessment & Plan (1) Esophageal mass: Plan: EGD showing Partially obstructing esophageal tumor was found at the gastroesophageal junction. Biopsied. Gastric tumor in the cardia and in the gastric fundus. Awaiting biopsy results Case management arranging out patient tertiary care hospital follow up Heme-onc following (2) Symptomatic anemia: Plan: pt receiving IV iron transfusing 1 unit prbc today heme 6.0 (3) Diabetes mellitus type 2, controlled, with complications: Plan: -RISS -pharm for glycemic management (4) GERD (gastroesophageal reflux disease): Plan: -protonix (5) Hypertension: Plan: -BP stable (6) CAD (coronary artery disease): Plan: -asa held 2nd to GI bleed risk Plan D/C home once PRBC and IV iron completed with out patient heme-onc follow up Admission and Anticipated Discharge Date Admission Date: March 24, 2025 Subjective No events overnight Review of Systems Review of Systems: CONST: Negative for fever, body aches and chills. HENT: Negative for neck pain/stiffness, headache, congestion, sore throat, swelling. EYES: Negative for discharge/pain or vision changes. RESP: Negative for cough/hemoptysis and shortness of breath. CV: Negative chest pain, difficulty breathing, palpitations. ABD: Negative pain, nausea, vomiting. : Negative increase frequency, dysuria, blood in urine or stool. MUSC: Negative for muscle aches, edema. SKIN: Negative rash, lesions/sores. NEURO: Negative headache, dizziness, weakness. Physical Exam Physical Exam: GENERAL APPEARANCE NAD, activity normal for age, well developed/ well nourished, no cyanosis, pallor, or diaphoresis. EYES lids/conjunctiva normal. EARS/NOSE/THROAT Mucous membranes moist, nares normal, lips/teeth normal uvula midline without oral pharyngeal erythema, exudate or swelling TMs normal bilaterally. No lymphangitis/lymphedema. HEAD/NECK normocephalic atraumatic, no facial trauma, neck is supple. RESPIRATORY respiratory effort normal, speaks in full sentences, no tripod position, no accessory muscle use. Lungs clear to auscultation without rhonchi, wheezes, rales CARDIAC Regular rate and rhythm, no edema. ABDOMINAL Soft, ND/NT. No evidence of fluid wave. No pulsatile masses on exam, rebound tenderness, Grace sign or pain over Mcburney's point. MUSCLES/EXTREMITIES No abnormal range of motion, no swelling. SKIN Warm, pink and dry. No rashes, dermatoses, petechiae or lesions. NEUROLOGICAL Speech is clear and appropriate. Normal level of consciousness. Gait and coordination are normal. 5/5 strength in all extremities. PSYCH Normal mood and affect. Judgement/competence is appropriate Results & Data Results & Data Vital Signs (Past 12 Hours) Vital Signs Temp Pulse Pulse Resp BP BP Pulse Ox 03/27/25 07: 36.8 C 75 20 125/71 03/27/25 02:35 37.1 C 67 18 119/69 97 03/26/25 22:50 37 C 70 18 123/77 96 O2 Del Method 03/27/25 07:25 03/27/25 02:35 Room Air 03/26/25 22:50 Room Air PG Care Time/CCT Total # of Minutes Spent Total Time Spent with Patient: Total time spent is greater than 50% in coordination of care (as documented) at patient's floor/unit and/or counseling patient: Coding Level of Care Code 70929 SUB INP/OBS CARE 2/35MIN Diagnoses Esophageal mass K22.89 Symptomatic anemia D64.9 Diabetes mellitus type 2, controlled, with complications E11.8 GERD (gastroesophageal reflux disease) K21.9 Primary hypertension I10 Hypertension type: primary hypertension Coronary artery disease involving [place] heart without angina pectoris, unspecified vessel or lesion type I25.10 Coronary Disease-Associated Artery/Lesion type: unspecified vessel or lesion type [place] vs. transplanted heart: [place] heart Associated angina: without angina (5) Hypertension Hypertension type: primary hypertension Qualified Code(s): I10 - Essential (primary) hypertension (6) CAD (coronary artery disease) Coronary Disease-Associated Artery/Lesion type: unspecified vessel or lesion type [place] vs. transplanted heart: [place] heart Associated angina: without angina Qualified Code(s): I25.10 - Atherosclerotic heart disease of [place] artery without angina pectoris
[2025-03-27] MEDS: IRON SUCROSE 300 MG in SODIUM CHLORIDE 0.9% 250 ML IV ONE (11:31)
[2025-03-28 05:03] LABS: Hematocrit (blood only) 25.7 % (42.0-52.0); Hemoglobin 7.8 g/dl (14.0-18.0); Mean Corpuscular Hemoglobin 24.5 pg (25.0-34.0); Mean Corpuscular Volume 80.8 fL (80.0-100.0); Platelet Count 170 K/uL (130-400); RDW Standard Deviation 47.6 fL (36.4-46.3); Red Blood Count 3.18 M/uL (4.70-6.10); White Blood Count 5.23 K/ul (4.8-10.8)
--- NOTE | 2025-03-28 09:09 | Discharge Summary ---
Discharge Summary Date of Service March 28, 2025 Principal Dx & Hospital Course #1 = Principal Diagnosis (1) Esophageal mass: EGD showing Partially obstructing esophageal tumor was found at the gastroesophageal junction. Biopsied. Gastric tumor in the cardia and in the gastric fundus. Biopsy results show adenocarcinoma Case management arranging out patient tertiary care hospital follow up Heme-onc following (2) Symptomatic anemia: pt receiving IV iron transfusing 1 unit prbc today heme 6.0, repeat 7.8 (3) Diabetes mellitus type 2, controlled, with complications: -RISS -pharm for glycemic management (4) GERD (gastroesophageal reflux disease): -protonix (5) Hypertension: -BP stable (6) CAD (coronary artery disease): -asa held 2nd to GI bleed risk Plan D/C home once PRBC and IV iron completed with out patient heme-onc follow up Admission HPI Per Admitting Provider 69 year old male with history of T2DM, GERD, bladder CA, depression, hyperlipidemia, CAD, HTN, NIDIA and others below presenting with Shortness of breath, fatigue and chest pain. Patient reports his oral intake has decreased and he is having difficulty with solid and liquid dysphagia. Patient also reports unintended weight loss about 30 lbs. Discharge Exam GENERAL APPEARANCE NAD, activity normal for age, well developed/ well nourished, no cyanosis, pallor, or diaphoresis. EYES lids/conjunctiva normal. EARS/NOSE/THROAT Mucous membranes moist, nares normal, lips/teeth normal uvula midline without oral pharyngeal erythema, exudate or swelling TMs normal bilaterally. No lymphangitis/lymphedema. HEAD/NECK normocephalic atraumatic, no facial trauma, neck is supple. RESPIRATORY respiratory effort normal, speaks in full sentences, no tripod position, no accessory muscle use. Lungs clear to auscultation without rhonchi, wheezes, rales CARDIAC Regular rate and rhythm, no edema. ABDOMINAL Soft, ND/NT. No evidence of fluid wave. No pulsatile masses on exam, rebound tenderness, Grace sign or pain over Mcburney's point. MUSCLES/EXTREMITIES No abnormal range of motion, no swelling. SKIN Warm, pink and dry. No rashes, dermatoses, petechiae or lesions. NEUROLOGICAL Speech is clear and appropriate. Normal level of consciousness. Gait and coordination are normal. 5/5 strength in all extremities. PSYCH Normal mood and affect. Judgement/competence is appropriate Discharge Plan Discharge Items Patient Disposition: Home - Self-Care Reason For Visit: ACUTE ANEMIA Discharge Diagnosis: Gastric adenocarcinoma Condition on Discharge: Fair Activity: Resume your previous activity Non-emergency contact: Primary Care Provider Call non-emergency contact if: you have any medication questions Follow-up/Referrals: Vasyl Westbrook DO [Primary Care Provider] - Nereyda Sinha MD [Physician] - 04/02/25 12:00 pm Diet: Carb Consistent or DM2 Ambulatory Orders: Iron (Routine) Timeframe: 1 Month Location: Determined by Patient Ordered By: Leonidas Osorio Attending Provider Instructions: Follow up with Oncology in 1 week Pending Studies at Discharge: No Stand-Alone Forms: My [employer], Smoking Cessation Medications and DC Order Prescriptions: New ferrous sulfate [iron] 325 mg (65 mg iron) tablet 325 mg PO DAILY Qty: 30 0RF Continued (DME) pen needle, diabetic [BD Ultra-Fine Beverly Pen Needle] 32 gauge x 5/32" needle See Rx Instructions .Route Qty: 300 3RF Rx Instructions: use with insulin injections TID (DME) OneTouch Verio test strips Strip See Rx Instructions .ROUTE .MEDSUPPLY Qty: 400 3RF Rx Instructions: test blood sugar QID metformin 500 mg tablet extended release 24 hr 1,000 mg PO BID Qty: 360 3RF omeprazole 40 mg capsule,delayed release(DR/EC) 40 mg PO DAILY Qty: 30 5RF atorvastatin 40 mg tablet 40 mg PO HS Qty: 100 3RF Rx Instructions: for cholesterol aspirin 81 mg tablet,delayed release (DR/EC) 81 mg PO QPM gabapentin 800 mg tablet 800 mg PO TID ibuprofen 200 mg Tablet 800 mg PO BID insulin glargine [Lantus Solostar U-100 Insulin] 100 unit/mL (3 mL) insulin pen 38 unit SUBCUT HS Discharge Orders: Discharge Order (Routine); Ordered 03/28/25 Ordered By: Leonidas Welch Admission Data Admit Date/Time: 03/24/25 11:15 Attending Provider: Leonidas Welch Admit Provider: Delvin Zaman Primary Care Provider: Vasyl Westbrook Other Providers: Delvin Zaman; Rafy Kasper; Aurelio Gordillo; Bina Boo; Rena Sloan; Adilene Keene; Mary Beckham; Slim Brito; Shilpa Johnson; Alessandro Chavez; Jimy Perez; Rosaura Jean Baptiste; Darling Dow; Chaya Yan; Adelaide Guerrero; Calli James; Kimani Godoy; Kanu Amezcua; Mana Mari; Yulia Vásquez Jr; Roel Wong; Sabino James; Braeden Zuniga; Hector Myers; Kiki Aragon; Eben Dewey I; Ivy Rankin; Uche Becerril; Balwinder Quinteros; Orlin Reyes; Fidel Sawyer; Abida Salazar; German Luong; Lucas Rowan; Julia Jalloh; Opal Rg; Skyler Weems; Nereyda Sinha; [email or web address],Elizabeth Attending Hospital Stay Data Consultations 03/24/25 11:06 ED Decision to Admit Stat 03/24/25 11:15 Consult Gastroenterology Routine 03/25/25 13:18 Consult Oncology Routine Procedures Performed Operation Date: 03/25/25 16:30 Actual Procedures p EGD Biopsy Cytology - Eben Dewey MD Diagnostic Imagining Performed 03/24/25 18:16 CT abd pelvis IV con only Routine 03/24/25 18:20 CT chest diagnostic w con Routine Pending Results Patient Have Any Pending Studies at Discharge: No Discharge Instructions Given to Patient (Per Discharging Provider) Follow up with Oncology in 1 week Total Time Total Time Spent Total Time Spent (In Minutes): 50 Coding Level of Care Code 92941 INP/OBS DISCH >30 MIN Diagnoses Esophageal mass K22.89 Symptomatic anemia D64.9 Diabetes mellitus type 2, controlled, with complications E11.8 GERD (gastroesophageal reflux disease) K21.9 Primary hypertension I10 Hypertension type: primary hypertension Coronary artery disease involving craig heart without angina pectoris, unspecified vessel or lesion type I25.10 Coronary Disease-Associated Artery/Lesion type: unspecified vessel or lesion type [place] vs. transplanted heart: craig heart Associated angina: without angina
[2025-03-28 11:28] VITALS: RESP 16; TEMP 99.1; O2SAT 99
[2025-03-28 12:39] VITALS: BP 112/70; PULSE 80
== END 2025-03-28 14:33 | disposition home or self-care (01) | DRG 375 ==
LOC: ED 09:15 → EDINP 11:15 → SUATTDRO 11:15 → 4W 14:05

== ENCOUNTER 2025-04-23 09:43 | Inpatient (IN) ==
[2025-04-23 10:58] LABS: Hematocrit (blood only) 33.0 % (42.0-52.0); Hemoglobin 10.4 g/dl (14.0-18.0); Immature Granulocytes # (auto) 0.24 K/uL (0.01-0.20); Immature Granulocytes % (auto) 1.5 %; Mean Corpuscular Hemoglobin 27.4 pg (25.0-34.0); Mean Corpuscular Volume 87.1 fL (80.0-100.0); Platelet Count 198 K/uL (130-400); RDW Standard Deviation 74.7 fL (36.4-46.3); Red Blood Count 3.79 M/uL (4.70-6.10); White Blood Count 15.63 K/ul (4.8-10.8)
[2025-04-23 11:22] LABS: Alanine Aminotransferase 11 U/L (7-52); Albumin Globulin Ratio 1.3 (0.9-2); Alkaline Phosphatase 101 U/L (34-104); Anion Gap 8 (3-11); Bilirubin,Total 0.7 mg/dl (0.2-1.0); Blood Urea Nitrogen 45 mg/dl (6-23); Calcium 8.8 mg/dl (8.6-10.3); Carbon Dioxide 23 mmol/L (21-32); Chloride 103 mmol/L (98-107); Globulin 2.8 gm/dl (2.5-4.0); Glucose 271 mg/dl (70-99(Fasting)); Lipase 19 U/L (11-82); Potassium 4.4 mmol/L (3.5-5.1); Sodium 134 mmol/L (136-145); Total Protein 6.4 gm/dl (6.0-8.3)
[2025-04-23 11:24] LABS: Anisocytosis Present; Tear Drop Cells 1+
[2025-04-23] MEDS: PANTOprazole 40 MG/10 ML SYR IV ONE (12:16)
[2025-04-23] MEDS: PROCHLORPERAZINE 1 ML IV ONE ×2 (12:16→12:57)
[2025-04-23] MEDS: SODIUM CHLORIDE 0.9% 1,000 ML IV ONE (12:16)
--- NOTE | 2025-04-23 12:20 | Emergency Department Note ---
Impression & Plan Nausea & vomiting, Metastatic cancer, Dehydration ED Provider Note ED Provider Note NAME: LIZET JONES AGE:69 SEX: Male : 1955 ARRIVES VIA: private vehicle INFORMANT: Patient ED PROVIDER(s): Ju Diego DO CHIEF COMPLAINT: Referred by the [facility] HPI: This is a 69-year-old male who presents to the emergency department stating he was referred here by the [facility] after his appointment today where he saw Dr. Sinha. Patient is undergoing chemotherapy for metastatic cancer related to a GE junction mass. He states he began his current chemo treatment on Monday and is still getting an infusion. He states he has had nausea and vomiting and has not kept anything down for 3 days. He states he has not had a bowel movement in 4 days. He states he is passing gas. He denies fevers or chills. Patient does have a urostomy and states that is draining normally. He states the oncologist was concern for dehydration, nutrition, and states there was some discussion of possibly needing a feeding tube. PAST MEDICAL HISTORY:See Below PAST SURGICAL HISTORY:See Below FAMILY HISTORY:See Below SOCIAL HISTORY:See Below HOME MEDICATIONS:See Below ALLERGIES:See Below VITALS:See Below PHYSICAL EXAMINATION: GENERAL: alert, well appearing, well nourished, no distress, non-toxic EYE EXAM: normal conjunctiva, PERRL and EOM's grossly intact OROPHARYNX: no exudate, no erythema, lips, buccal mucosa, and tongue normal and mucous membranes are moist NECK: supple, no nuchal rigidity, no adenopathy, non-tender LUNGS: Clear to auscultation. Normal chest wall mechanics, no w/r/r HEART: no murmurs, S1 normal and S2 normal ABDOMEN: abdomen soft, non-tender, normo-active bowel sounds, no masses, no rebound or guarding. Urostomy present in the right lower abdomen. SKIN: no rashes, petechiae, orbruising UPPER EXTREMITIES: upper extremities are grossly normal. FROM, nml pulses b/l. LOWER EXTREMITIES: No pitting edema. FROM, nml pulses b/l. NEURO EXAM: Normal sensorium, cranial nerves II-XII grossly intact, normal speech, no facial droop,nogross weakness of arms, no gross weakness of legs. Gross sensation intact. No ataxia. Vital Signs: reviewed and remarkable Differential Diagnosis: dehydration, wayne electrolyte abnormality, chemo adr, colitis, sbo, perforation, increased tumor burden, medication adr, as well as others were considered MEDICAL DECISION MAKING: This is a 69 yo male who presents to the ER with concern for persistent nausea/vomiting and concern for dehydration. He was referred to the ER by Dr. Sinha who was unable to direct admit him today. Patient with advanced metastatic cancer. Labs drawn and sent, IV established, and patient monitored on telemetry. He was started on IVF and given medication for nausea and pain. I did discuss the case with Dr. Sinha and then with Dr. Porter of the hospitalist team. Consultation(s): 8918: Discussed with Dr. Sinha. 7550: Discussed with Dr. Porter, [place] hospitalist team, for additional evaluation and mgmt. ER Treatment Provided: See below Diagnostics Interpreted By Me: -ECG: Normal sinus at 72, normal axis, normal intervals, no acute ST/T wave changes -Cardiac Monitoring: An order was placed for continuous cardiac monitoring. The monitor shows a rate of 74 with normal sinus rhythm. -Laboratory studies: As stated above and show below. Triage Nursing Note Reviewed Prior/Outside Records Reviewed - oncology office visit reviewed Past Med/Surg History Problem List (Updated 04/23/25 @ 12:20 by Ju Diego DO) Dehydration (Acute) Metastatic cancer (Acute) Nausea & vomiting (Acute) Gastroesophageal cancer (Acute) Abdominal pain in male (Acute) Encounter for pre-operative examination Adenocarcinoma Esophageal mass Gastric mass Symptomatic anemia (Acute) Weight loss Diabetes mellitus type 2, controlled, with complications GERD (gastroesophageal reflux disease) Depression Complex renal cyst Hyperlipidemia (Chronic) Lumbar discitis (Chronic) Tinnitus, bilateral (Chronic) Sensorineural hearing loss of both ears (Chronic) Neurogenic claudication due to lumbar spinal stenosis (Chronic) Degenerative disc disease (Chronic) CAD (coronary artery disease) (~2018) Anemia (Chronic) Benign prostatic hyperplasia with urinary obstruction (Chronic) Hypertension Obstructive sleep apnea Erectile dysfunction (Chronic) Medical History (Updated 04/23/25 @ 12:20 by Ju Diego DO) Adenocarcinoma Dx 03/25/25, mass in esophagus/stomach HTN (hypertension) Gastric mass s/p biopsy NIDIA (obstructive sleep apnea) Non-compliant w/ device History of anemia Hx of coronary artery disease IVY x 1 (2015) Hypomagnesemia Reactive depression (situational) 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 No noted recent/current issues Eustachian tube dysfunction Insulin dependent diabetes mellitus Diverticulosis High cholesterol Situational anxiety Diverticulitis Hx, no noted recent/current issues Bladder cancer (08/08/17) Status post cystoscopy and transurethral resection of bladder tumor Dyslipidemia Chronic back pain Diabetes mellitus Surgical History Port-A-Cath in place (04/15/25) Insertion of Right Internal Jugular Access Port with Fluoroscopy(Right) - Fabrizio York DO History of infusaport central venous catheter removal History of infusaport central venous catheter insertion ~2017 (per [place] records) Hx of radical prostatectomy 2017, 09/29 to bladder cancer (per [place] records) History of esophagogastroduodenoscopy (EGD) (03/25/25) with biopsy History of urostomy History of back surgery (03/21/20) L2-S1 fusion S/P ureteral stent placement History of coronary angioplasty 2015 ([facility]) S/P tooth extraction S/P colonoscopy History of ankle surgery Family History Mother Colorectal cancer Heart disease Diabetes Cardiac disorder Myocardial infarction Father Hypertension Myocardial infarction Sister Breast cancer Denies family history of Ovarian cancer Prostate cancer Social History Smoking Status: Never smoker Tobacco Type: Cigarettes Age Started Using Tobacco: 16; Age Quit Using Tobacco: 56; packs per day: 1; Second Hand Exposure: No; Do You Dip or Chew Tobacco: No; Hx Alcohol Use: No Hx Substance Use: No Preferred Language: Arabic Communication Ability: Effective Visual Impairment: Limited Hearing Ability: Normal Patient Support Tech Required: No Beliefs That Will Affect Care: None marital status: Current Living Situation: Spouse Current Living Situation Comment: lives with a home current occupational status: retired How many Children do You have: 2 Other Information That Helps Us Care for You: No Feels Safe at Home: Yes Safety Concerns: Feels Safe At This Time Childhood Exposure to Second-Hand Smoke: Yes Diet: regular caffeine: Yes Dental Care, Regularly: No Physical Activity Frequency: Daily Seatbelt Use: always Sunscreen Use: No Assistive Devices: None Allergies Allergies Allergy/AdvReac Type Severity Reaction Status Date / Time No Known Allergies Allergy Verified 04/22/25 11:40 Home Meds Home Medications Medication Instructions Recorded Confirmed aspirin 81 mg tablet,delayed 81 mg PO QPM 12/18/19 04/23/25 release gabapentin 800 mg tablet 800 mg PO TID 03/24/25 04/23/25 ibuprofen 200 mg tablet 800 mg PO BID 03/24/25 04/23/25 insulin glargine 100 unit/mL (3 38 unit subcut HS 03/24/25 04/23/25 mL) subcutaneous pen (Lantus Solostar U-100 Insulin) metformin 500 mg tablet,extended 500 mg PO BID 04/08/25 04/23/25 release 24 hr omeprazole 40 mg capsule,delayed 40 mg PO QAM 04/08/25 04/23/25 release prochlorperazine maleate 10 mg 10 mg PO Q6H PRN n/v 04/12/25 04/23/25 tablet oxycodone 10 mg tablet 10 mg PO Q4H PRN Pain 04/23/25 04/23/25 Previous Rx's Medication Instructions Recorded pen needle, diabetic 32 gauge x #300 ea 06/27/23" (BD Ultra-Fine Beverly Pen Needle) blood sugar diagnostic (OneTouch #400 ea 03/12/24 Verio test strips) atorvastatin 40 mg tablet 40 mg PO HS #100 tabs 06/14/24 mirtazapine 15 mg tablet 15 mg PO DAILY #30 tabs 04/03/25 ferrous sulfate 325 mg (65 mg 325 mg PO DAILY #30 tabs 04/18/25 iron) tablet (iron) Results & Data (ED) Vital Signs Vital Signs - 24 hr 04/23/25 10:15 04/23/25 10:48 04/23/25 10:55 Temperature 36.1 C L Temperature Source Temporal Artery Scan Pulse Rate 92 H 73 Pulse Rate [Apical] 76 Pulse Rate from SpO2 Sensor Pulse Rhythm [Apical] Regular Pulse Strength [Apical] Normal Respiratory Rate 18 18 Respiratory Effort / Characteristics Non-Labored Spontaneous Respiratory Depth Normal Respiratory Pattern Regular Blood Pressure Blood Pressure [Right Arm] 128/85 Blood Pressure Mean Blood Pressure Mean [Right Arm] 99 Blood Pressure Position [Right Arm] Lying Pulse Oximetry 99 95 Oxygen Delivery Method Room Air Room Air Sepsis New/Unexplained Change in Mental Status No Sepsis Action Taken by Nursing No Action Required 04/23/25 11:06 04/23/25 11:33 04/23/25 12:00 Temperature Temperature Source Pulse Rate 73 73 71 Pulse Rate [Apical] Pulse Rate from SpO2 Sensor 74 73 69 Pulse Rhythm [Apical] Pulse Strength [Apical] Respiratory Rate 17 15 17 Respiratory Effort / Characteristics Respiratory Depth Respiratory Pattern Blood Pressure 132/85 135/86 152/93 H Blood Pressure [Right Arm] Blood Pressure Mean 100 102 112 Blood Pressure Mean [Right Arm] Blood Pressure Position [Right Arm] Pulse Oximetry 95 97 98 Oxygen Delivery Method Sepsis New/Unexplained Change in Mental Status Sepsis Action Taken by Nursing 04/23/25 13:00 04/23/25 13:33 Temperature Temperature Source Pulse Rate 85 72 Pulse Rate [Apical] Pulse Rate from SpO2 Sensor 87 71 Pulse Rhythm [Apical] Pulse Strength [Apical] Respiratory Rate 14 17 Respiratory Effort / Characteristics Respiratory Depth Respiratory Pattern Blood Pressure 144/93 H 119/61 Blood Pressure [Right Arm] Blood Pressure Mean 110 80 Blood Pressure Mean [Right Arm] Blood Pressure Position [Right Arm] Pulse Oximetry 96 97 Oxygen Delivery Method Sepsis New/Unexplained Change in Mental Status Sepsis Action Taken by Nursing Laboratory Data 04/23/25 16:30 04/23/25 16:30 Lab Results 04/23/25 04/23/25 Range/Units 10:42 11:59 WBC 15.63 H (4.8-10.8) K/ul RBC 3.79 L (4.70-6.10) M/uL Hgb 10.4 L (14.0-18.0) g/dl Hct 33.0 L (42.0-52.0) % MCV 87.1 (80.0-100.0) fL MCH 27.4 (25.0-34.0) pg MCHC 31.5 L (32.0-36.0) g/dL RDW Std Deviation 74.7 H (36.4-46.3) fL RDW Coeff of [place] 24.3 H (11.5-14.5) % Plt Count 198 (130-400) K/uL MPV 11.1 (9.4-12.4) fL Immature Gran % (Auto) 1.5 % Neut % (Auto) 89.5 % Lymph % (Auto) 2.0 % [place] % (Auto) 6.8 % Eos % (Auto) 0.0 % Baso % (Auto) 0.2 % Neut # (Auto) 13.98 H (1.40-6.50) K/uL Lymph # (Auto) 0.32 L (1.20-3.40) K/uL [place] # (Auto) 1.06 H (0.11-0.59) K/uL Eos # (Auto) 0.00 (0.00-0.50) K/uL Baso # (Auto) 0.03 (0.00-0.20) K/uL Immature Gran # (Auto) 0.24 H (0.01-0.20) K/uL Anisocytosis Present Tear Drop Cells 1+ Sodium 134 L (136-145) mmol/L Potassium 4.4 (3.5-5.1) mmol/L Chloride 103 (98-107) mmol/L Carbon Dioxide 23 (21-32) mmol/L Anion Gap 8 (3-11) BUN 45 H (6-23) mg/dl Creatinine 1.12 (0.6-1.4) mg/dl Est Cr Clr Drug Dosing Not Reportable eGFR 70.67 BUN/Creatinine Ratio 40.2 H (10-20) Glucose 271 H (70-99(Fasting)) mg/dl Calcium 8.8 (8.6-10.3) mg/dl Total Bilirubin 0.7 (0.2-1.0) mg/dl AST 31 (13-39) U/L ALT 11 (7-52) U/L Alkaline Phosphatase 101 (34-104) U/L Total Protein 6.4 (6.0-8.3) gm/dl Albumin 3.6 (3.4-5.0) gm/dl Globulin 2.8 (2.5-4.0) gm/dl Albumin/Globulin Ratio 1.3 (0.9-2) Lipase 19 (11-82) U/L Urine Color Yellow Urine Appearance Cloudy A (Clear) Urine pH 6.5 (4.5-7.5) Ur Specific Prue 1.016 (1.000-1.030) Urine Protein 1+ H (Negative) Urine Glucose (UA) Negative (Negative) Urine Ketones Trace H (Negative) Urine Blood Negative (Negative) Urine Nitrite Negative (Negative) Urine Bilirubin Negative (Negative) Urine Urobilinogen Negative (Negative) Ur Leukocyte Esterase 1+ H (Negative) Urine WBC (Auto) 11-20 H (0-5) /hpf Urine RBC (Auto) 0-2 (0-2) /hpf U Hyaline Cast (Auto) 3-5 H (0-2) /lpf U Epithel Cells (Auto) 3-5 H (0-2) /hpf Urine Bacteria (Auto) 3+ H (None Seen) Urine Comment Administered Medications Enoxaparin Sodium (Enoxaparin Inj 40 Mg/0.4 Ml Syr) 40 mg SQ Q24H SUYAPA Stop: 05/23/25 16:18 Last Admin: 04/23/25 18:04 Dose: 40 mg Documented By: yanelis Heparin Sodium (Porcine) (Heparin 100 Unit/Ml 5ml Flush) 5 ml FLUSH PRN PRN PRN Reason: Flush Stop: 05/23/25 12:52 Last Admin: 04/23/25 12:57 Dose: 5 ml Documented By: THOMAS Ceftriaxone Sodium (Rocephin) 1,000 mg in 50 mls @ 100 mls/hr IV Q24H SUYAPA Stop: 04/28/25 16:18 Last Infusion: 04/23/25 19:00 Dose: Infused Documented By: Admin: 04/23/25 18:03 Dose: 100 mls/hr Documented By: yanelis Lactated Ringer's (Lr) 1,000 mls @ 80 mls/hr IV .[id number] SUYAPA Stop: 04/26/25 16:18 Last Admin: 04/23/25 18:04 Dose: 80 mls/hr Documented By: yanelis Insulin Aspart (Insulin Aspart Per Unit Charge) 0 units SC Q6 SUYAPA Stop: 05/23/25 16:59 Last Admin: 04/23/25 18:27 Dose: 6 units Documented By: yanelis Co-signed By: CORTNEY Discontinued Medications Heparin Sodium (Beef Lung) (Heparin 10 Unit/Ml 5 Ml Flush) Confirm Administered Dose 5 ml FLUSH .STK-MED ONE Stop: 04/23/25 12:44 Last Admin: 04/23/25 13:05 Dose: Not Given Documented By: THOMAS Heparin Sodium (Porcine) (Heparin 100 Unit/Ml 5ml Flush) Confirm Administered Dose 5 ml .ROUTE .STK-MED ONE Stop: 04/23/25 12:46 Last Admin: 04/23/25 13:04 Dose: Not Given Documented By: THOMAS Sodium Chloride (Nss) 1,000 mls @ 999 mls/hr IV .Q1H1M ONE Stop: 04/23/25 13:00 Last Infusion: 04/23/25 13:09 Dose: Infused Documented By: Admin: 04/23/25 12:16 Dose: 999 mls/hr Documented By: THOMAS Pantoprazole Sodium (Protonix) 40 mg in 10 mls @ 5 mls/min IV NOW ONE Stop: 04/23/25 12:02 Last Admin: 04/23/25 12:16 Dose: 5 mls/min Documented By: THOMAS Prochlorperazine (Compazine) 1 mls @ 1 mls/min IV ONE ONE Stop: 04/23/25 12:02 Last Admin: 04/23/25 12:16 Dose: 1 mls/min Documented By: THOMAS Prochlorperazine (Compazine) 1 mls @ 1 mls/min IV ONE ONE Stop: 04/23/25 12:40 Last Admin: 04/23/25 12:57 Dose: 1 mls/min Documented By: THOMAS Morphine Sulfate (Morphine Sulfate 4 Mg/Ml 1 Ml Carp\\Vial) 4 mg IV NOW STA Stop: 04/23/25 12:40 Last Admin: 04/23/25 12:57 Dose: 4 mg Documented By: THOMAS Discharge Plan Visit Data Chief Complaint: Referred by Doctor Stated Complaint: REF BY [facility] FOR FEEDING TUBE ED Provider: Ju Diego Discharge Problem: Nausea & vomiting, Metastatic cancer, Dehydration Patient Disposition: Admitted As Inpatient Condition: Fair Discharge Instructions Interventions: ED Discharge Assessment Last Done: 04/23/25 15:56
[2025-04-23 12:34] LABS: Appearance Urine Cloudy (Clear); Bacteria Urine Automated 3+ (None Seen); Glucose Urine UA Negative (Negative); RBC Urine Automated 0-2 /hpf (0-2)
[2025-04-23] MEDS: HEPARIN 100 UNIT/ML 5ML FLUSH FLUSH PRN (12:57)
[2025-04-23] MEDS: MoRPHine SULFATE 4 MG/ML 1 ML CARP\\VIAL IV STA (12:57)
[2025-04-23] MEDS: HEPARIN 100 UNIT/ML 5ML FLUSH ONE (13:04)
--- NOTE | 2025-04-23 13:34 | History & Physical Report ---
Date of Service April 23, 2025 Assessment & Plan (1) Dehydration: (2) Metastatic cancer: (3) Nausea & vomiting: (4) Gastroesophageal cancer: Plan 69-year-old male Anemia GERD diabetes depression hypertension hyperlipidemia deafness DJD CAD BPH bladder CA s/p resection/urostomy in distant past, NIDIA Gastroesophageal malignancy (GE junction mass) currently undergoing chemo was at the cancer center earlier today and retracted to the ED For persistent nausea vomiting and anorexia secondary to chemo. He has been constipated for the past 4 days. Reportedly the oncologist was concerned the patient may need a feeding tube. Nausea vomiting anorexia dehydration secondary to chemotherapy and mechanical obstruction 2/2 malignancy Supportive care Antiemetics and pain control IV fluids Monitor and replete lytes prn Diet as tolerated Dietitian consultation If persists, Will need to consider feeding tube Constipation Bowel regimen as ordered UTI? Empirical IV rocephin Urine culture Diabetes Hold oral hypoglycemics Short and long-acting insulin Pharmacy consulted to manage DVT prophylaxis Full code. Guarded prognosis. 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 He has been constipated for the past 4 days. Reportedly the oncologist was concerned the patient may need a feeding tube. No fevers or chills. No hematemesis. No Chest pain shortness of breath lightheadedness symptoms or any other symptoms. at bedside. Discussed the case with ED physician. She Discussed the case with oncologist who Requested the admission Awaiting completion of home med rec Primary Care Provider: Vasyl Westbrook DO Allergies Allergy/AdvReac Type Severity Reaction Status Date / Time No Known Allergies Allergy Verified 04/22/25 11:40 Home Medications Medication Instructions Recorded Confirmed Type aspirin 81 mg tablet,delayed 81 mg PO QPM 12/18/19 04/23/25 History release pen needle, diabetic 32 gauge x #300 ea 06/27/23 04/22/25 Rx 5/32" (BD Ultra-Fine Beverly Pen Needle) blood sugar diagnostic (OneTouch #400 ea 03/12/24 04/22/25 Rx Verio test strips) atorvastatin 40 mg tablet 40 mg PO HS #100 tabs 06/14/24 04/23/25 Rx gabapentin 800 mg tablet 800 mg PO TID 03/24/25 04/23/25 History ibuprofen 200 mg tablet 800 mg PO BID 03/24/25 04/23/25 History insulin glargine 100 unit/mL (3 38 unit subcut HS 03/24/25 04/23/25 History mL) subcutaneous pen (Lantus Solostar U-100 Insulin) mirtazapine 15 mg tablet 15 mg PO DAILY #30 tabs 04/03/25 04/23/25 Rx metformin 500 mg tablet,extended 500 mg PO BID 04/08/25 04/23/25 History release 24 hr omeprazole 40 mg capsule,delayed 40 mg PO QAM 04/08/25 04/23/25 History release prochlorperazine maleate 10 mg 10 mg PO Q6H PRN n/v 04/12/25 04/23/25 History tablet ferrous sulfate 325 mg (65 mg 325 mg PO DAILY #30 tabs 04/18/25 04/23/25 Rx iron) tablet (iron) oxycodone 10 mg tablet 10 mg PO Q4H PRN Pain 04/23/25 04/23/25 History Past Med/Surg History Problem List (Updated 04/23/25 @ 12:20 by Ju Diego DO) Dehydration (Acute) Metastatic cancer (Acute) Nausea & vomiting (Acute) Gastroesophageal cancer (Acute) Abdominal pain in male (Acute) Encounter for pre-operative examination Adenocarcinoma Esophageal mass Gastric mass Symptomatic anemia (Acute) Weight loss Diabetes mellitus type 2, controlled, with complications GERD (gastroesophageal reflux disease) Depression Complex renal cyst Hyperlipidemia (Chronic) Lumbar discitis (Chronic) Tinnitus, bilateral (Chronic) Sensorineural hearing loss of both ears (Chronic) Neurogenic claudication due to lumbar spinal stenosis (Chronic) Degenerative disc disease (Chronic) CAD (coronary artery disease) (~2018) Anemia (Chronic) Benign prostatic hyperplasia with urinary obstruction (Chronic) Hypertension Obstructive sleep apnea Erectile dysfunction (Chronic) Medical History (Updated 04/23/25 @ 12:20 by Ju Diego DO) Adenocarcinoma Dx 03/25/25, mass in esophagus/stomach HTN (hypertension) Gastric mass s/p biopsy NIDIA (obstructive sleep apnea) Non-compliant w/ device History of anemia Hx of coronary artery disease IVY x 1 (2015) Hypomagnesemia Reactive depression (situational) 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 No noted recent/current issues Eustachian tube dysfunction Insulin dependent diabetes mellitus Diverticulosis High cholesterol Situational anxiety Diverticulitis Hx, no noted recent/current issues Bladder cancer (08/08/17) Status post cystoscopy and transurethral resection of bladder tumor Dyslipidemia Chronic back pain Diabetes mellitus Surgical History Port-A-Cath in place (04/15/25) Insertion of Right Internal Jugular Access Port with Fluoroscopy(Right) - Fabrizio York DO History of infusaport central venous catheter removal History of infusaport central venous catheter insertion ~2017 (per [place] records) Hx of radical prostatectomy 2017, 09/29 to bladder cancer (per [place] records) History of esophagogastroduodenoscopy (EGD) (03/25/25) with biopsy History of urostomy History of back surgery (03/21/20) L2-S1 fusion S/P ureteral stent placement History of coronary angioplasty 2015 ([facility]) S/P tooth extraction S/P colonoscopy History of ankle surgery Family History Mother Colorectal cancer Heart disease Diabetes Cardiac disorder Myocardial infarction Father Hypertension Myocardial infarction Sister Breast cancer Denies family history of Ovarian cancer Prostate cancer Social History Smoking Status: Former smoker Tobacco Type: Cigarettes Age Started Using Tobacco: 16; Age Quit Using Tobacco: 56; packs per day: 1; Second Hand Exposure: No; Do You Dip or Chew Tobacco: No; Hx Alcohol Use: Yes (quit 2014) Alcohol type: wine and hard liquor Hx Substance Use: Yes Last Used Substance Other:: many years ago Preferred Language: Frisian Communication Ability: Effective Visual Impairment: Limited Hearing Ability: Normal Silk Spooler Required: No Beliefs That Will Affect Care: None marital status: Current Living Situation: Spouse current occupational status: retired How many Children do You have: 2 Feels Safe at Home: Yes Childhood Exposure to Second-Hand Smoke: Yes Diet: regular caffeine: Yes Dental Care, Regularly: No Physical Activity Frequency: Daily Seatbelt Use: always Sunscreen Use: No Assistive Devices: Glasses Review of Systems Review of Systems: negative except as in hpi Physical Exam Physical Exam: GENERAL: alert, well appearing, well nourished, no distress, non-toxic EYE EXAM: normal conjunctiva, PERRL and EOM's grossly intact OROPHARYNX: no exudate, no erythema, lips, buccal mucosa, and tongue normal and mucous membranes are moist NECK: supple, no nuchal rigidity, no adenopathy, non-tender LUNGS: Clear to auscultation. Normal chest wall mechanics, no w/r/r HEART: no murmurs, S1 normal and S2 normal ABDOMEN: abdomen soft, non-tender, normo-active bowel sounds, no masses, no rebound or guarding. Urostomy present in the right lower abdomen. SKIN: no rashes, petechiae, orbruising UPPER EXTREMITIES: upper extremities are grossly normal. FROM, nml pulses b/l. LOWER EXTREMITIES: No pitting edema. FROM, nml pulses b/l. NEURO EXAM: Normal sensorium, cranial nerves II-XII grossly intact, normal speech, no facial droop,nogross weakness of arms, no gross weakness of legs. Gross sensation intact. No ataxia. Results & Data Results & Data Vital Signs (Past 12 Hours) Vital Signs Temp Pulse Pulse Resp BP BP Pulse Ox 04/23/25 12:00 71 17 152/93 H 98 04/23/25 11:33 73 15 135/86 97 04/23/25 11:06 73 17 132/85 95 04/23/25 10:55 73 04/23/25 10:48 76 18 128/85 95 04/23/25 10:15 36.1 C L 92 H 18 99 O2 Del Method 04/23/25 12:00 04/23/25 11:33 04/23/25 11:06 04/23/25 10:55 04/23/25 10:48 Room Air 04/23/25 10:15 Room Air PG Care Time/CCT Total # of Minutes Spent Total Time Spent with Patient: Total time spent is greater than 50% in coordination of care (as documented) at patient's floor/unit and/or counseling patient: Coding Level of Care Code 36007 INT INP/OBS CARE 2/55MIN Diagnoses Dehydration E86.0 Metastatic cancer C79.9 Nausea & vomiting R11.2 Gastroesophageal cancer C16.0
[2025-04-23] MEDS ORDERED: ONDANSETRON INJ 2 MG/ML 2 ML VIAL IV PRN (16:19)
[2025-04-23] MEDS ORDERED: ALUMINUM/MAGNESIUM SUSP 30 ML UDC PO PRN (16:19)
[2025-04-23] MEDS ORDERED: PHARMACY GLYCEMIC MGMT CONSULT PRN (16:19)
[2025-04-23] MEDS ORDERED: POLYETHYLENE (MIRALAX) 17 GM PACK PO PRN (16:19)
[2025-04-23] MEDS ORDERED: MAGNESIUM HYDROXIDE SUSP 30 ML UDC PO PRN (16:19)
[2025-04-23] MEDS ORDERED: GLUCOSE 40% GEL 15 GM TUBE PO PRN (16:45)
[2025-04-23] MEDS ORDERED: DEXTROSE 50% 50 ML SYRINGE IV PRN (16:45)
[2025-04-23] MEDS ORDERED: CARBOHYDRATES FOR HYPOGLYCEMIA PO PRN (16:45)
[2025-04-23] MEDS ORDERED: GLUCOSE 10 TAB/TUBE PO PRN (16:45)
[2025-04-23] MEDS ORDERED: GLUCAGON FOR INJ 1 MG VIAL SQ PRN (16:45)
[2025-04-23 16:50] LABS: Hematocrit (blood only) 31.1 % (42.0-52.0); Hemoglobin 9.8 g/dl (14.0-18.0); Mean Corpuscular Hemoglobin 27.3 pg (25.0-34.0); Mean Corpuscular Volume 86.6 fL (80.0-100.0); Platelet Count 172 K/uL (130-400); RDW Standard Deviation 74.7 fL (36.4-46.3); Red Blood Count 3.59 M/uL (4.70-6.10); White Blood Count 10.86 K/ul (4.8-10.8)
[2025-04-23 17:05] LABS: Alanine Aminotransferase 11.0 U/L (7-52); Albumin Globulin Ratio 1.3 (0.9-2); Alkaline Phosphatase 100.0 U/L (34-104); Anion Gap 8.0 (3-11); Bilirubin,Total 0.6 mg/dl (0.2-1.0); Blood Urea Nitrogen 42.0 mg/dl (6-23); Calcium 8.4 mg/dl (8.6-10.3); Carbon Dioxide 22.0 mmol/L (21-32); Chloride 106.0 mmol/L (98-107); Creatinine Clr Calc Pharmacy 64.5 ml/min; Globulin 2.5 gm/dl (2.5-4.0); Glucose 270.0 mg/dl (70-99(Fasting)); Potassium 3.8 mmol/L (3.5-5.1); Sodium 136.0 mmol/L (136-145); Total Protein 5.8 gm/dl (6.0-8.3)
[2025-04-23] MEDS: cefTRIAXone SODIUM 1,000 MG/50 ML BAG IV SCH (18:03)
[2025-04-23] MEDS: ENOXAPARIN INJ 40 MG/0.4 ML SYR SQ SCH (18:04)
[2025-04-23] MEDS: LACTATED RINGER'S 1,000 ML IV SCH (18:04)
[2025-04-23] MEDS: INSULIN ASPART PER UNIT CHARGE SC SCH (18:27)
[2025-04-23] MEDS ORDERED: INSULIN GLARGINE 100 UNIT/ML VIAL SC ONE (21:00)
[2025-04-23] MEDS: ACETAMINOPHEN 325 MG TAB PO PRN (22:00)
[2025-04-23] MEDS: LANTUS PER UNIT CHARGE SC ONE (23:07)
[2025-04-24 06:09] LABS: Hematocrit (blood only) 29.9 % (42.0-52.0); Hemoglobin 9.3 g/dl (14.0-18.0); Mean Corpuscular Hemoglobin 26.9 pg (25.0-34.0); Mean Corpuscular Volume 86.4 fL (80.0-100.0); Platelet Count 148 K/uL (130-400); RDW Standard Deviation 72.8 fL (36.4-46.3); Red Blood Count 3.46 M/uL (4.70-6.10); White Blood Count 9.75 K/ul (4.8-10.8)
[2025-04-24 06:36] LABS: Alanine Aminotransferase 9.0 U/L (7-52); Albumin Globulin Ratio 1.3 (0.9-2); Alkaline Phosphatase 84.0 U/L (34-104); Anion Gap 6.0 (3-11); Bilirubin,Total 0.6 mg/dl (0.2-1.0); Blood Urea Nitrogen 35.0 mg/dl (6-23); Calcium 8.4 mg/dl (8.6-10.3); Carbon Dioxide 24.0 mmol/L (21-32); Chloride 106.0 mmol/L (98-107); Creatinine Clr Calc Pharmacy 69.6 ml/min; Globulin 2.4 gm/dl (2.5-4.0); Glucose 214.0 mg/dl (70-99(Fasting)); Potassium 4.1 mmol/L (3.5-5.1); Sodium 136.0 mmol/L (136-145); Total Protein 5.5 gm/dl (6.0-8.3)
[2025-04-24] MEDS: LANTUS PER UNIT CHARGE SC SCH ×2 (08:56→21:08)
[2025-04-24] MEDS ORDERED: PROCHLORPERAZINE MALEATE 10 MG TAB PO PRN (09:05)
[2025-04-24] MEDS: MIRTAZAPINE TAB 15 MG TAB PO SCH (10:05)
[2025-04-24] MEDS: FERROUS SULFATE 325 MG TAB PO SCH (10:05)
[2025-04-24] MEDS: IBUPROFEN 800 MG TAB PO SCH (10:05)
[2025-04-24] MEDS: GABAPENTIN 800 MG TAB PO SCH (10:06)
--- NOTE | 2025-04-24 11:19 | Hospitalist Progress Note ---
"Date of Service April 24, 2025 Assessment & Plan (1) Dysphagia: (2) Gastroesophageal cancer: (3) Metastatic cancer: (4) Dehydration: (5) Nausea & vomiting: Plan 69-year-old male with past medical history of metastatic esophageal cancer recently started on chemotherapy, bladder cancer s/p resection/urostomy in distant past, hypertension, hyperlipidemia, CAD, BPH, NIDIA. He was referred to the ED for persistent nausea/vomiting/anorexia associated with chemotherapy. #Esophageal cancer | Dysphagia | Nausea/Vomiting - GI consulted for possible PEG tube placement - due to patient's large, partially obstructing fungating esophageal mass, he is not an appropriate candidate for endoscopic placement for PEG tube; recommends general surgery consult - General surgery consulted - Palliative care consulted - Director Process Engineering and speech therapy consulted - Well-tolerating full liquid diet - allowed to have any desired items required by patient - Continue IV fluids for now - Continue supportive care #UTI - urine culture prelim growing Klebsiella pneumonia, sensitivities pending - Continue ceftriaxone IV until urine culture sensitivities result #Constipation - Continue bowel regimen as ordered #T2DM - Hold oral hypoglycemics - Pharmacy consulted to manage VTE PPx: Lovenox, SCDs Dispo: Continue inpatient stay while awaiting specialist input and determination of long-term plan Consulted GI Discussed case with GI Consulted general surgery Advanced diet Consulted speech Admission and Anticipated Discharge Date Admission Date: April 23, 2025 Subjective Patient seen and evaluated at bedside. He reports resolution of his nausea and vomiting since his chemo was discontinued yesterday. He states that his issues with dysphagia have been ongoing for about 3 weeks. He is able to eat soft foods at home. We discussed his diet here and he would like to start on a full liquid diet. I informed him of the speech therapy consult placed this morning and further diet recommendations will be coming from them. We had a thorough discussion regarding the plan moving forward. We discussed that if treatment were to continue for his metastatic esophageal cancer, he would likely require PEG tube placement for nutrition. Another option would be to prioritize comfort and transition to comfort measures only. He is interested in speaking with GI to get more details about a PEG tube. Reminded patient that no definitive decisions need to be made today. Emotional support provided throughout visit. No additional complaints or concerns at this time. Physical Exam Physical Exam: General: No acute distress, nondiaphoretic, well-developed, well-nourished. Skin: Warm, dry. No rashes or peripheral edema noted. Cardiac: Regular rate and rhythm without murmurs gallops or rubs. Pulm: Clear to auscultation bilaterally without wheezes, rales or rhonchi. Normal respiratory effort. 98% on room air. Abdominal: Soft, nontender, nondistended. Bowel sounds present. Urostomy present in RLQ. Neuro: A&O x3. No focal neurological deficits. Results & Data Results & Data Vital Signs (Past 12 Hours) Vital Signs Temp Pulse Resp BP BP Pulse Ox O2 Del Method 04/24/25 07:35 98.1 F 76 16 117/78 98 Room Air 04/23/25 23:29 98.1 F 80 16 119/76 97 Room Air Laboratory Results Reviewed CBC Reviewed CMP Reviewed UA PG Care Time/CCT Total # of Minutes Spent Total Time Spent with Patient: Total time spent is greater than 50% in coordination of care (as documented) at patient's floor/unit and/or counseling patient: Coding Level of Care Code 98742 SUB INP/OBS CARE 3/50MIN Diagnoses Dysphagia R13.10 Gastroesophageal cancer C16.0 Metastatic cancer C79.9 Dehydration E86.0 Nausea & vomiting R11.2"
--- NOTE | 2025-04-24 11:45 | Communication Note ---
Date of Service: April 24, 2025 Received a consult for this patient regarding GI placing a PEG tube. Discussed with Dr. Reyes who advised that due to the large, partially obstructing fu ngating esophageal mass, patient is not an appropriate candidate for endoscopic placement of a feeding tube. Would recommend IR vs surgical consultation. Communicated this to hospitalist. ATTENDING ADDENDUM I have extensively reviewed this patient's prior endoscopy report and agree with the note as above. The patient has an exophytic ulcerated mass with significant friability that bled during the procedure. While certainly this can be traversed with the upper endoscope placement of a percutaneous gastrostomy tube past this resulted in severe trauma and resultant substantial bleeding and trauma to the area. As such I recommend direct placement of a PEG via interventional radiology or surgical placement as I believe risk exceeds benefit from a percutaneous approach. In addition, percutaneous tubes are not available for placement at this time due to an unexpected supply chain issue even if this were appropriate.
[2025-04-24] MEDS: INSULIN ASPART PER UNIT CHARGE SC SCH (12:29)
--- NOTE | 2025-04-24 13:39 | Communication Note ---
Date of Service: April 24, 2025 Palliative Med Brief Note Consult received/appreciated Chart reviewed patient will be seen tomorrow as I am in outpatient clinic today and our IP provider is out of office through next week. if anything urgently arises, please page and I will try to help/be available for telemed ACP if needed overnight. Thank you for allowing us to participate in the ongoing care of this patient. Please page with any additional concerns. Cirilo Hooper DNP Director, Palliative Medicine
--- NOTE | 2025-04-24 14:29 | Pharmacy Report ---
Pharmacy Glycemic Short Note 2 - Date of Service April 24, 2025 - Glycemic Short BSG Results (Last 24 hours): 04/23/25 04/23/25 04/23/25 16:18 16:30 20:22 Glucose 270 H POC Glucose 257 H 219 H 04/24/25 04/24/25 04/24/25 00:01 05:51 06:04 Glucose 214 H POC Glucose 261 H 233 H 04/24/25 11:27 Glucose POC Glucose 221 H OUTPATIENT ANTIDIABETIC REGIMEN: * Lantus 38 units HS, metformin ASSESSMENT: * Patient admitted with N/V, history of metastatic esophageal cancer currently receiving chemotherapy * BSGS have been elevated in the 200s since admission. * Split outpatient regimen 50/50 with basal/bolus. Will monitor for additional changes * Initially NPO has started on full liquid diet PLAN FOR INPATIENT GLYCEMIC CONTROL: * Hold outpatient oral diabetes medications * Basal insulin * Lantus 15 units SQ BID * Bolus insulin * NovoLog per scale ACHS or Q6hrs while NPO * Goal Range: Low 110 mg/dL - High 140 mg/dL * Correction Factor: 15 mg/dL/unit * Nutritional / Prandial insulin per carb ratio of 1 unit per 7 grams CHO consumed
[2025-04-24] MEDS: cefTRIAXone SODIUM 2,000 MG/50 ML BAG IV SCH (18:01)
--- NOTE | 2025-04-24 19:37 | Surgery Consultation ---
Date of Consultation April 24, 2025 Assessment & Plan (1) Dysphagia: The patient is a 69-year-old male with a PMH significant for of Gastroesophageal malignancy (GE junction mass) currently undergoing chemo who presented with nausea, vomiting, and decreased po intake secondary to the chemotherapy. Oncologist is concerned the patient may need a feeding tube and GI was consulted for further evaluation. However, GI reviewed the patient's case and due the patient having an exophytic ulcerated mass that was noted to have significant friability during his last EGD procedure they feel as though the risks exceeds the benefits of placing the PEG tube endoscopically. It was recommended the PEG tube be placed via surgically vs IR. I did discuss with the patient that unfortunately the attending surgeon gas distribution and emergency clerk does not place PEG tubes, however we will discuss with [facility] surgery who will be gas distribution and emergency clerk tomorrow, to further discuss his case and provide additional recommendations. (2) Metastatic cancer: (3) Gastroesophageal cancer: History of Present Illness Reason for Consultation: PEG tube placement History of Present Illness The patient is a 69-year-old male with a PMH significant for of Gastroesophageal malignancy (GE junction mass) currently undergoing chemo, DM, depression, HTN, HLD, DJD, CAD, and BPH. The patient was at the cancer center yesterday and presented to the ED due to nausea, vomiting, and decreased po intake secondary to the chemotherapy. Per chart review, the oncologist was concerned the patient may need a feeding tube and GI was consulted for further evaluation. However, GI reviewed the patient's case and due the patient having an exophytic ulcerated mass he was noted to have significant friability during his last EGD and because of this GI feels the risks exceeds the benefits of placing the PEG tube endoscopically. It was recommended the PEG tube be placed via surgically vs IR. Allergies Allergy/AdvReac Type Severity Reaction Status Date / Time No Known Allergies Allergy Verified 04/22/25 11:40 Home Medications Medication Instructions Recorded Confirmed Type aspirin 81 mg tablet,delayed 81 mg PO QPM 12/18/19 04/23/25 History release pen needle, diabetic 32 gauge x #300 ea 06/27/23 04/22/25 Rx 5/32" (BD Ultra-Fine Beverly Pen Needle) blood sugar diagnostic (OneTouch #400 ea 03/12/24 04/22/25 Rx Verio test strips) atorvastatin 40 mg tablet 40 mg PO HS #100 tabs 06/14/24 04/23/25 Rx gabapentin 800 mg tablet 800 mg PO TID 03/24/25 04/23/25 History ibuprofen 200 mg tablet 800 mg PO BID 03/24/25 04/23/25 History insulin glargine 100 unit/mL (3 38 unit subcut HS 03/24/25 04/23/25 History mL) subcutaneous pen (Lantus Solostar U-100 Insulin) mirtazapine 15 mg tablet 15 mg PO DAILY #30 tabs 04/03/25 04/23/25 Rx metformin 500 mg tablet,extended 500 mg PO BID 04/08/25 04/23/25 History release 24 hr omeprazole 40 mg capsule,delayed 40 mg PO QAM 04/08/25 04/23/25 History release prochlorperazine maleate 10 mg 10 mg PO Q6H PRN n/v 04/12/25 04/23/25 History tablet ferrous sulfate 325 mg (65 mg 325 mg PO DAILY #30 tabs 04/18/25 04/23/25 Rx iron) tablet (iron) oxycodone 10 mg tablet 10 mg PO Q4H PRN Pain 04/23/25 04/23/25 History Patient History Medical History (Updated 04/24/25 @ 11:19 by Dianne Bourgeois PA-C) Adenocarcinoma Dx 03/25/25, mass in esophagus/stomach HTN (hypertension) Gastric mass s/p biopsy NIDIA (obstructive sleep apnea) Non-compliant w/ device History of anemia Hx of coronary artery disease IVY x 1 (2015) Hypomagnesemia Reactive depression (situational) 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 No noted recent/current issues Eustachian tube dysfunction Insulin dependent diabetes mellitus Diverticulosis High cholesterol Situational anxiety Diverticulitis Hx, no noted recent/current issues Bladder cancer (08/08/17) Status post cystoscopy and transurethral resection of bladder tumor Dyslipidemia Chronic back pain Diabetes mellitus Surgical History Port-A-Cath in place (04/15/25) Insertion of Right Internal Jugular Access Port with Fluoroscopy(Right) - Fabrizio York, DO History of infusaport central venous catheter removal History of infusaport central venous catheter insertion ~2017 (per [place] records) Hx of radical prostatectomy 2017, 09/29 to bladder cancer (per [place] records) History of esophagogastroduodenoscopy (EGD) (03/25/25) with biopsy History of urostomy History of back surgery (03/21/20) L2-S1 fusion S/P ureteral stent placement History of coronary angioplasty 2015 ([facility]) S/P tooth extraction S/P colonoscopy History of ankle surgery Family History Mother Colorectal cancer Heart disease Diabetes Cardiac disorder Myocardial infarction Father Hypertension Myocardial infarction Sister Breast cancer Denies family history of Ovarian cancer Prostate cancer Social History Smoking Status: Never smoker Tobacco Type: Cigarettes Age Started Using Tobacco: 16; Age Quit Using Tobacco: 56; packs per day: 1; Second Hand Exposure: No; Do You Dip or Chew Tobacco: No; Hx Alcohol Use: No Hx Substance Use: No Preferred Language: Northern Irish Communication Ability: Effective Visual Impairment: Limited Hearing Ability: Normal Size Tester Required: No Beliefs That Will Affect Care: None marital status: Current Living Situation: Spouse Current Living Situation Comment: lives with a home current occupational status: retired How many Children do You have: 2 Other Information That Helps Us Care for You: No Feels Safe at Home: Yes Safety Concerns: Feels Safe At This Time Childhood Exposure to Second-Hand Smoke: Yes Diet: regular caffeine: Yes Dental Care, Regularly: No Physical Activity Frequency: Daily Seatbelt Use: always Sunscreen Use: No Assistive Devices: None Review of Systems Constitutional: no fever and no chills Respiratory: no cough and no dyspnea Cardiovascular: no chest pain, no palpitations and no syncope Gastrointestinal: as per Subjective / HPI, + nausea and + vomiting Physical Exam Constitutional: WD/WN, vitals as above Respiratory: normal respiratory effort, lungs clear to auscultation Cardiovascular: Rate/Rhythm: regular rate Gastrointestinal (Abdomen): Abdomen soft, nondistended, nontender Urostomy present in the right lower abdomen. Skin: no rashes, warm and dry Results & Data Vital Signs (Past 12 Hours) Vital Signs Temp Pulse Resp BP BP Pulse Ox O2 Del Method 04/24/25 15:56 36.7 C 76 16 108/53 L 94 Room Air 04/24/25 07:35 36.7 C 76 16 117/78 98 Room Air PG Care Time/CCT Total # of Minutes Spent Total Time Spent with Patient: Total time spent is greater than 50% in coordination of care (as documented) at patient's floor/unit and/or counseling patient: [place] [address] INT INP/OBS CARE 1/40MIN Patient Type New History Problem Focused Exam Problem Focused Medical Decision Making Straight Forward Diagnoses Dysphagia R13.10 Metastatic cancer C79.9 Gastroesophageal cancer C16.0
[2025-04-24] MEDS: ASPIRIN 81 MG ECTAB PO SCH (21:08)
[2025-04-24] MEDS: ATORVASTATIN 40 MG TAB PO SCH (21:08)
[2025-04-25 06:43] LABS: Hematocrit (blood only) 28.5 % (42.0-52.0); Hemoglobin 8.9 g/dl (14.0-18.0); Mean Corpuscular Hemoglobin 27.3 pg (25.0-34.0); Mean Corpuscular Volume 87.4 fL (80.0-100.0); Platelet Count 126 K/uL (130-400); RDW Standard Deviation 72.6 fL (36.4-46.3); Red Blood Count 3.26 M/uL (4.70-6.10); White Blood Count 8.49 K/ul (4.8-10.8)
--- NOTE | 2025-04-25 06:56 | Electrocardiogram Report ---
Test Reason : Blood Pressure : */* mmHG Vent. Rate : 72 BPM Atrial Rate : 72 BPM P-R Int : 114 ms QRS Dur : 80 ms QT Int : 428 ms P-R-T Axes : -21 20 21 degrees QTcB Int : 468 ms Normal sinus rhythm Cannot rule out Anterior infarct , age undetermined Nonspecific T wave abnormality Abnormal ECG When compared with ECG of 12-Apr-2025 08:43, No significant change was found Confirmed by Brian Elizabeth ([id number]) on 04/25/2025 6:56:17 AM Referred By: REFERRED SELF Confirmed By: Brian Elizabeth
[2025-04-25 06:59] LABS: Alanine Aminotransferase 10.0 U/L (7-52); Albumin Globulin Ratio 1.3 (0.9-2); Alkaline Phosphatase 73.0 U/L (34-104); Anion Gap 4.0 (3-11); Bilirubin,Total 0.4 mg/dl (0.2-1.0); Blood Urea Nitrogen 30.0 mg/dl (6-23); Calcium 7.9 mg/dl (8.6-10.3); Carbon Dioxide 25.0 mmol/L (21-32); Chloride 107.0 mmol/L (98-107); Creatinine Clr Calc Pharmacy 71.0 ml/min; Globulin 2.3 gm/dl (2.5-4.0); Glucose 175.0 mg/dl (70-99(Fasting)); Potassium 3.9 mmol/L (3.5-5.1); Sodium 136.0 mmol/L (136-145); Total Protein 5.2 gm/dl (6.0-8.3)
[2025-04-25 08:45] VITALS: BP 110/67; PULSE 82; RESP 18; TEMP 98.2; O2SAT 98
--- NOTE | 2025-04-25 09:06 | Communication Note ---
Date of Service: April 25, 2025 Reviewed patient chart. Discussed with hospitalist Dianne Bourgeois PA-C. Palliative care consulted and planning to see patient today to discuss goals of care. GI consulted for PEG tube however they felt he was not a candidate for PEG tube given friable obstructing mass at GE junction and recommending either IR or surgical placement. In review of patients EGD report and pictures, there appears to be mass in the gastric cardia and body as well as wall thickening of the stomach on CT imaging. I do not feel he is candidate for surgical or IR placement of a gastrostomy tube due to this and would need a J-tube. Given his prior radical cystectomy with ileal conduit , would recommend IR placement of J- tube as less invasive approach as a surgical placement of J-tube would require open laparotomy procedure for placement. Will await palliative care consultation and if patient wants to pursue additional chemo and feeding tube placement, he likely will require transfer for IR J-tube placement. Discussed with Dr. Westbrook who agrees with above.
[2025-04-25] MEDS: LANTUS PER UNIT CHARGE SC SCH (09:09)
--- NOTE | 2025-04-25 10:56 | Palliative Care Consultation ---
Date of Consultation April 25, 2025 Assessment & Plan (1) Cancer related pain: Continue [employer] regimen OxyContin and OxyIR (2) Advanced care planning/counseling discussion: A 60 min face to face ACp meeting was held at bedside with Héctor and his .Héctor begins by telling me he does not want further chemo, he sees he cannot tolerate it and he would rather figure out a way to not have pain/distress and be with family. We discussed transitioning to a focus on QOL We reviewed hospice: I provided education about the hospice benefit: an interdisciplinary program offered by nurses, nurses aides, social workers, chaplains and a medical collections for patients with a terminal condition and a life expectancy of less than 6 months. This is covered by Medicare at 100%/no out of pocket expense to patient and all meds/supplies needed by patient for the reason they are on hospice are paid for/covered by hospice. The goal is assure quality of life of the patient in their home setting (home, [place] [facility], inpatient hospice setting) by providing symptoms management, psychosocial and spiritual support. However, they cannot offer 24 hours care and if the family is unable to provide that care, they will have to consider personal care with out of pocket cost vs. [place] [facility] placement. We discussed the goals of hospice as a patient service and the goals of care; we discussed EOL trajectories and transitions earnestine the emotional impact of realizing mortality as a concrete reality from prior abstract considerations. Pt was reassured that no matter where they are along this trajectory, they are not alone - their medical team will remain by their side through their journey. Discussed the pros/cons of accepting help when especially weakened and distressed by pain-which would also help provide relief/decrease caregiver burden/strain. They choose [facility]. We discussed the role for RT I discussed his case with Dr Ellis who has graciously agreed to come see him. If no RT is needed now, pt can be dc home with hospice and then if sx burden intensifies and RT is desired, he can revoke hospice while getting RT then re enroll. He and are happy with this plan. We agreed to a Pall med clinic f/u in 2 weeks. (3) Abdominal pain, generalized: (4) Weakness generalized: (5) Palliative care by specialist: History of Present Illness Reason for Consultation: goals of care. 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 At his 04/23 cancer clinic visit, he was found to be failing clinically and was referred to ED for eval by oncology with recc for feeding tube. Per chart review: " GI consulted for PEG tube however they felt he was not a candidate for PEG tube given friable obstructing mass at GE junction and recommending either IR or surgical placement. In review of patients EGD report and pictures, there appears to be mass in the gastric cardia and body as well as wall thickening of the stomach on CT imaging. I do not feel he is candidate for surgical or IR placement of a gastrostomy tube due to this and would need a J- tube. Given his prior radical cystectomy with ileal conduit , would recommend IR placement of J-tube as less invasive approach as a surgical placement of J- tube would require open laparotomy procedure for placement. Will await palliative care consultation and if patient wants to pursue additional chemo and feeding tube placement, he likely will require transfer for IR J-tube placement. " Héctor has widely metastatic gastroesophageal junction adenocarcinoma. He received cycle 1, day 1 of treatment withZolbetuximabon 04/21/2025ut unfortunately could not complete infusion due to concern for mild infusion reaction. He received cycle 1, day 2 of treatment with FOLFOXon 04/22/2025. At that isit, he was accompanied by his and reported significant fatigue, difficulty swallowingand is only able tohave sips of water. states that he has been sleeping a lot. ONCOLOGY HX: Diagnosis:GE junction adenocarcinoma Current treatment:FOLFOX plus Zolbetuximab, started 04/21/2025 Diagnosis/treatment history: 1. Gentleman with medical history significant for bladder cancer s/p radical cystectomy with cystoprostatectomy and ileal conduit diversion who was recently diagnosed with GE junction adenocarcinoma. 2. He presented to [facility] on 03/24/2025 with weight loss, chest pain, shortness of breath. Labs revealed severe anemia with hemoglobin of 5.7, hematocrit 19.8, MCV 78.0 with iron studies revealing transferrin saturation of 5%, serum iron of 21, ferritin of 6.4. 3. CT CAP on 03/24/2025 revealed multiple hepatic lesions, collapsed stomach with mild concentric thickening near the gastroesophageal junction, gastric cardia and proximal body of stomach with mild perigastric fat stranding, few lymph nodes adjacent to the gastric cardia, tiny jamaal deposits involving greater omentum in the right mid and lower quadrant as well as 3 mm sized solid nodule in the superior segment of the right lower lobe, few subpleural ground glass nodules in the posterior basal segment of bilateral lower lobes. 4. Upper endoscopy obtained on 03/25/2025 due to complaints of dysphagia and iron deficiency anemia revealed large fungating and ulcerating mass with bleeding in the GE junction, 40 cm from the incisors, mass was partially obstructing and circumferential in the gastric cardia. 5. Pathology confirmed mismatch repair proficient moderate to poorly differentiated HER2/BEN negative (score 1+), Claudin 18 positive (100%, 3+ intensity) with PD-L1 less than 1%. While in the hospital, he received IV iron sucrose 300 mg x 1 dose in addition to multiple PRBC transfusion 6. PET/CT from 04/10/2025 showed lymph node metastatic disease at the chest and abdomen, hepatic metastatic disease and osseous metastatic disease. 7. He received cycle 1, day 1 of treatment with Zolbetuximab on 04/21/2025 but unfortunately could not complete infusion due to concern for mild infusion reaction. Received cycle 1, day 2 of treatment with FOLFOX on 04/22/2025. PMH: Anemia,GERD, DM, HTN, HLD, deafness, DJD, CAD, BPH, bladder CA s/p resection/urostomy in distant past, NIDIA, and newly dx Stage IV gastroesophageal junctionadenocarcinoma FAMILY HISTORY * Mother: Colorectal cancer * Sister 1: Breast cancer Allergies Allergy/AdvReac Type Severity Reaction Status Date / Time zolbetuximab-clzb AdvReac Severe Verified 04/25/25 10:54 [From Issac] morphine AdvReac Unknown Verified 04/25/25 10:54 Home Medications Medication Instructions Recorded Confirmed Type aspirin 81 mg tablet,delayed 81 mg PO QPM 12/18/19 04/23/25 History release pen needle, diabetic 32 gauge x #300 ea 06/27/23 04/22/25 Rx 5/32" (BD Ultra-Fine Beverly Pen Needle) blood sugar diagnostic (OneTouch #400 ea 03/12/24 04/22/25 Rx Verio test strips) atorvastatin 40 mg tablet 40 mg PO HS #100 tabs 06/14/24 04/23/25 Rx gabapentin 800 mg tablet 800 mg PO TID 03/24/25 04/23/25 History ibuprofen 200 mg tablet 800 mg PO BID 03/24/25 04/23/25 History insulin glargine 100 unit/mL (3 38 unit subcut HS 03/24/25 04/23/25 History mL) subcutaneous pen (Lantus Solostar U-100 Insulin) mirtazapine 15 mg tablet 15 mg PO DAILY #30 tabs 04/03/25 04/23/25 Rx metformin 500 mg tablet,extended 500 mg PO BID 04/08/25 04/23/25 History release 24 hr omeprazole 40 mg capsule,delayed 40 mg PO QAM 04/08/25 04/23/25 History release prochlorperazine maleate 10 mg 10 mg PO Q6H PRN n/v 04/12/25 04/23/25 History tablet ferrous sulfate 325 mg (65 mg 325 mg PO DAILY #30 tabs 04/18/25 04/23/25 Rx iron) tablet (iron) oxycodone 10 mg tablet 10 mg PO Q4H PRN Pain 04/23/25 04/23/25 History Patient History Medical History (Updated 04/27/25 @ 00:07 by Hernandez Lopez) Adenocarcinoma Dx 03/25/25, mass in esophagus/stomach HTN (hypertension) Gastric mass s/p biopsy NIDIA (obstructive sleep apnea) Non-compliant w/ device History of anemia Hx of coronary artery disease IVY x 1 (2015) Hypomagnesemia Reactive depression (situational) 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 No noted recent/current issues Eustachian tube dysfunction Insulin dependent diabetes mellitus Diverticulosis High cholesterol Situational anxiety Diverticulitis Hx, no noted recent/current issues Bladder cancer (08/08/17) Status post cystoscopy and transurethral resection of bladder tumor Dyslipidemia Chronic back pain Diabetes mellitus Surgical History Port-A-Cath in place (04/15/25) Insertion of Right Internal Jugular Access Port with Fluoroscopy(Right) - Fabrizio York, DO History of infusaport central venous catheter removal History of infusaport central venous catheter insertion ~2017 (per [place] records) Hx of radical prostatectomy 2018, 2/2 to bladder cancer (per [place] records) History of esophagogastroduodenoscopy (EGD) (03/25/25) with biopsy History of urostomy History of back surgery (03/21/20) L2-S1 fusion S/P ureteral stent placement History of coronary angioplasty 2015 ([facility]) S/P tooth extraction S/P colonoscopy History of ankle surgery Family History Mother Colorectal cancer Heart disease Diabetes Cardiac disorder Myocardial infarction Father Hypertension Myocardial infarction Sister Breast cancer Denies family history of Ovarian cancer Prostate cancer Social History Smoking Status: Never smoker Tobacco Type: Cigarettes Age Started Using Tobacco: 16; Age Quit Using Tobacco: 56; packs per day: 1; Second Hand Exposure: No; Do You Dip or Chew Tobacco: No; Hx Alcohol Use: No Hx Substance Use: No Preferred Language: South Korean Communication Ability: Effective Visual Impairment: Limited Hearing Ability: Normal Survey Director Required: No Beliefs That Will Affect Care: None marital status: Current Living Situation: Spouse Current Living Situation Comment: lives with a home current occupational status: retired How many Children do You have: 2 Feels Safe at Home: Yes Childhood Exposure to Second-Hand Smoke: Yes Diet: regular caffeine: Yes Dental Care, Regularly: No Physical Activity Frequency: Daily Seatbelt Use: always Sunscreen Use: No Assistive Devices: None Review of Systems Review of Systems: All systems reviewed & are unremarkable except as noted in Subjective Physical Exam Constitutional: + acute distress, + ill appearing, + thi n, + frail appearing, cooperative and + underweight Eyes: PERRL, conjunctivae normal, anicteric sclerae ENMT: dentition fair, MMM frequent throat clearing Neck: trachea midline, no thyromegaly Respiratory: diminished bilat normal effort at rest no use of accessory muscles tenderness mid sternum to epigastric Cardiovascular: s1s2 Gastrointestinal (Abdomen): BS +, urostomy right, abd soft Musculoskeletal: IADLs sl antalgic gait Skin: + turgor decreased, + skin atrophy, + dr y skin and + pallor Neurologic: PERRL, EOMI, accommodation nl, no face palsy, no dysarthria Psychiatric: Cognition: recent memory grossly intact, remote memory grossly intact, attention grossly intact and language grossly intact Estimated Int elligence: + above average estimated intelligence Insight: excellent insight Judgment: excellent judgement Results & Data Vital Signs (Past 12 Hours) Vital Signs Temp Pulse Pulse Resp BP BP Pulse Ox 04/25/25 07:35 36.8 C 82 18 110/67 98 04/24/25 23:28 37.0 C 76 103/66 97 O2 Del Method 04/25/25 07:35 Room Air 04/24/25 23:28 Room Air Laboratory Results 04/25/25 04/25/25 04/24/25 Range/Units 07:58 05:59 20:57 WBC 8.49 (4.8-10.8) K/ul RBC 3.26 L (4.70-6.10) M/uL Hgb 8.9 L (14.0-18.0) g/dl Hct 28.5 L (42.0-52.0) % MCV 87.4 (80.0-100.0) fL MCH 27.3 (25.0-34.0) pg MCHC 31.2 L (32.0-36.0) g/dL RDW Std Deviation 72.6 H (36.4-46.3) fL RDW Coeff of [place] 23.3 H (11.5-14.5) % Plt Count 126 L (130-400) K/uL MPV 11.3 (9.4-12.4) fL Immature Gran % (Auto) % Neut % (Auto) % Lymph % (Auto) % Blaine % (Auto) % Eos % (Auto) % Baso % (Auto) % Neut # (Auto) (1.40-6.50) K/uL Lymph # (Auto) (1.20-3.40) K/uL Blaine # (Auto) (0.11-0.59) K/uL Eos # (Auto) (0.00-0.50) K/uL Baso # (Auto) (0.00-0.20) K/uL Immature Gran # (Auto) (0.01-0.20) K/uL Anisocytosis Tear Drop Cells Sodium 136 (136-145) mmol/L Potassium 3.9 (3.5-5.1) mmol/L Chloride 107 (98-107) mmol/L Carbon Dioxide 25 (21-32) mmol/L Anion Gap 4 (3-11) BUN 30 H (6-23) mg/dl Creatinine 1.00 (0.6-1.4) mg/dl Est Cr Clr Drug Dosing 71.0 eGFR 80.97 BUN/Creatinine Ratio 30.0 H (10-20) Glucose 175 H (70-99(Fasting)) mg/dl POC Glucose 239 H 202 H (70-99) mg/dl Calcium 7.9 L (8.6-10.3) mg/dl Total Bilirubin 0.4 (0.2-1.0) mg/dl AST 27 (13-39) U/L ALT 10 (7-52) U/L Alkaline Phosphatase 73 (34-104) U/L Total Protein 5.2 L (6.0-8.3) gm/dl Albumin 2.9 L (3.4-5.0) gm/dl Globulin 2.3 L (2.5-4.0) gm/dl Albumin/Globulin Ratio 1.3 (0.9-2) Lipase (11-82) U/L Urine Color Urine Appearance (Clear) Urine pH (4.5-7.5) Ur Specific [place] (1.000-1.030) Urine Protein (Negative) Urine Glucose (UA) (Negative) Urine Ketones (Negative) Urine Blood (Negative) Urine Nitrite (Negative) Urine Bilirubin (Negative) Urine Urobilinogen (Negative) Ur Leukocyte Esterase (Negative) Urine WBC (Auto) (0-5) /hpf Urine RBC (Auto) (0-2) /hpf U Hyaline Cast (Auto) (0-2) /lpf U Epithel Cells (Auto) (0-2) /hpf Urine Bacteria (Auto) (None Seen) Urine Comment 04/24/25 04/24/25 04/24/25 Range/Units 16:30 11:27 06:04 WBC (4.8-10.8) K/ul RBC (4.70-6.10) M/uL Hgb (14.0-18.0) g/dl Hct (42.0-52.0) % MCV (80.0-100.0) fL MCH (25.0-34.0) pg MCHC (32.0-36.0) g/dL RDW Std Deviation (36.4-46.3) fL RDW Coeff of [place] (11.5-14.5) % Plt Count (130-400) K/uL MPV (9.4-12.4) fL Immature Gran % (Auto) % Neut % (Auto) % Lymph % (Auto) % Blaine % (Auto) % Eos % (Auto) % Baso % (Auto) % Neut # (Auto) (1.40-6.50) K/uL Lymph # (Auto) (1.20-3.40) K/uL Blaine # (Auto) (0.11-0.59) K/uL Eos # (Auto) (0.00-0.50) K/uL Baso # (Auto) (0.00-0.20) K/uL Immature Gran # (Auto) (0.01-0.20) K/uL Anisocytosis Tear Drop Cells Sodium (136-145) mmol/L Potassium (3.5-5.1) mmol/L Chloride (98-107) mmol/L Carbon Dioxide (21-32) mmol/L Anion Gap (3-11) BUN (6-23) mg/dl Creatinine (0.6-1.4) mg/dl Est Cr Clr Drug Dosing eGFR BUN/Creatinine Ratio (10-20) Glucose (70-99(Fasting)) mg/dl POC Glucose 236 H 221 H 233 H (70-99) mg/dl Calcium (8.6-10.3) mg/dl Total Bilirubin (0.2-1.0) mg/dl AST (13-39) U/L ALT (7-52) U/L Alkaline Phosphatase (34-104) U/L Total Protein (6.0-8.3) gm/dl Albumin (3.4-5.0) gm/dl Globulin (2.5-4.0) gm/dl Albumin/Globulin Ratio (0.9-2) Lipase (11-82) U/L Urine Color Urine Appearance (Clear) Urine pH (4.5-7.5) Ur Specific [place] (1.000-1.030) Urine Protein (Negative) Urine Glucose (UA) (Negative) Urine Ketones (Negative) Urine Blood (Negative) Urine Nitrite (Negative) Urine Bilirubin (Negative) Urine Urobilinogen (Negative) Ur Leukocyte Esterase (Negative) Urine WBC (Auto) (0-5) /hpf Urine RBC (Auto) (0-2) /hpf U Hyaline Cast (Auto) (0-2) /lpf U Epithel Cells (Auto) (0-2) /hpf Urine Bacteria (Auto) (None Seen) Urine Comment 04/24/25 04/24/25 04/23/25 Range/Units 05:51 00:01 20:22 WBC 9.75 (4.8-10.8) K/ul RBC 3.46 L (4.70-6.10) M/uL Hgb 9.3 L (14.0-18.0) g/dl Hct 29.9 L (42.0-52.0) % MCV 86.4 (80.0-100.0) fL MCH 26.9 (25.0-34.0) pg MCHC 31.1 L (32.0-36.0) g/dL RDW Std Deviation 72.8 H (36.4-46.3) fL RDW Coeff of Lincoln 23.8 H (11.5-14.5) % Plt Count 148 (130-400) K/uL MPV 10.2 (9.4-12.4) fL Immature Gran % (Auto) % Neut % (Auto) % Lymph % (Auto) % Blaine % (Auto) % Eos % (Auto) % Baso % (Auto) % Neut # (Auto) (1.40-6.50) K/uL Lymph # (Auto) (1.20-3.40) K/uL Blaine # (Auto) (0.11-0.59) K/uL Eos # (Auto) (0.00-0.50) K/uL Baso # (Auto) (0.00-0.20) K/uL Immature Gran # (Auto) (0.01-0.20) K/uL Anisocytosis Tear Drop Cells Sodium 136 (136-145) mmol/L Potassium 4.1 (3.5-5.1) mmol/L Chloride 106 (98-107) mmol/L Carbon Dioxide 24 (21-32) mmol/L Anion Gap 6 (3-11) BUN 35 H (6-23) mg/dl Creatinine 1.02 (0.6-1.4) mg/dl Est Cr Clr Drug Dosing 69.6 eGFR 79.07 BUN/Creatinine Ratio 34.3 H (10-20) Glucose 214 H (70-99(Fasting)) mg/dl POC Glucose 261 H 219 H (70-99) mg/dl Calcium 8.4 L (8.6-10.3) mg/dl Total Bilirubin 0.6 (0.2-1.0) mg/dl AST 27 (13-39) U/L ALT 9 (7-52) U/L Alkaline Phosphatase 84 (34-104) U/L Total Protein 5.5 L (6.0-8.3) gm/dl Albumin 3.1 L (3.4-5.0) gm/dl Globulin 2.4 L (2.5-4.0) gm/dl Albumin/Globulin Ratio 1.3 (0.9-2) Lipase (11-82) U/L Urine Color Urine Appearance (Clear) Urine pH (4.5-7.5) Ur Specific [place] (1.000-1.030) Urine Protein (Negative) Urine Glucose (UA) (Negative) Urine Ketones (Negative) Urine Blood (Negative) Urine Nitrite (Negative) Urine Bilirubin (Negative) Urine Urobilinogen (Negative) Ur Leukocyte Esterase (Negative) Urine WBC (Auto) (0-5) /hpf Urine RBC (Auto) (0-2) /hpf U Hyaline Cast (Auto) (0-2) /lpf U Epithel Cells (Auto) (0-2) /hpf Urine Bacteria (Auto) (None Seen) Urine Comment 04/23/25 04/23/25 04/23/25 Range/Units 16:30 16:18 11:59 WBC 10.86 H (4.8-10.8) K/ul RBC 3.59 L (4.70-6.10) M/uL Hgb 9.8 L (14.0-18.0) g/dl Hct 31.1 L (42.0-52.0) % MCV 86.6 (80.0-100.0) fL MCH 27.3 (25.0-34.0) pg MCHC 31.5 L (32.0-36.0) g/dL RDW Std Deviation 74.7 H (36.4-46.3) fL RDW Coeff of [place] 24.0 H (11.5-14.5) % Plt Count 172 (130-400) K/uL MPV 10.3 (9.4-12.4) fL Immature Gran % (Auto) % Neut % (Auto) % Lymph % (Auto) % Blaine % (Auto) % Eos % (Auto) % Baso % (Auto) % Neut # (Auto) (1.40-6.50) K/uL Lymph # (Auto) (1.20-3.40) K/uL Blaine # (Auto) (0.11-0.59) K/uL Eos # (Auto) (0.00-0.50) K/uL Baso # (Auto) (0.00-0.20) K/uL Immature Gran # (Auto) (0.01-0.20) K/uL Anisocytosis Tear Drop Cells Sodium 136 (136-145) mmol/L Potassium 3.8 (3.5-5.1) mmol/L Chloride 106 (98-107) mmol/L Carbon Dioxide 22 (21-32) mmol/L Anion Gap 8 (3-11) BUN 42 H (6-23) mg/dl Creatinine 1.10 (0.6-1.4) mg/dl Est Cr Clr Drug Dosing 64.5 eGFR 72.22 BUN/Creatinine Ratio 38.2 H (10-20) Glucose 270 H (70-99(Fasting)) mg/dl POC Glucose 257 H (70-99) mg/dl Calcium 8.4 L (8.6-10.3) mg/dl Total Bilirubin 0.6 (0.2-1.0) mg/dl AST 29 (13-39) U/L ALT 11 (7-52) U/L Alkaline Phosphatase 100 (34-104) U/L Total Protein 5.8 L (6.0-8.3) gm/dl Albumin 3.3 L (3.4-5.0) gm/dl Globulin 2.5 (2.5-4.0) gm/dl Albumin/Globulin Ratio 1.3 (0.9-2) Lipase (11-82) U/L Urine Color Yellow Urine Appearance Cloudy A (Clear) Urine pH 6.5 (4.5-7.5) Ur Specific [place] 1.016 (1.000-1.030) Urine Protein 1+ H (Negative) Urine Glucose (UA) Negative (Negative) Urine Ketones Trace H (Negative) Urine Blood Negative (Negative) Urine Nitrite Negative (Negative) Urine Bilirubin Negative (Negative) Urine Urobilinogen Negative (Negative) Ur Leukocyte Esterase 1+ H (Negative) Urine WBC (Auto) 11-20 H (0-5) /hpf Urine RBC (Auto) 0-2 (0-2) /hpf U Hyaline Cast (Auto) 3-5 H (0-2) /lpf U Epithel Cells (Auto) 3-5 H (0-2) /hpf Urine Bacteria (Auto) 3+ H (None Seen) Urine Comment 04/23/25 Range/Units 10:42 WBC 15.63 H (4.8-10.8) K/ul RBC 3.79 L (4.70-6.10) M/uL Hgb 10.4 L (14.0-18.0) g/dl Hct 33.0 L (42.0-52.0) % MCV 87.1 (80.0-100.0) fL MCH 27.4 (25.0-34.0) pg MCHC 31.5 L (32.0-36.0) g/dL RDW Std Deviation 74.7 H (36.4-46.3) fL RDW Coeff of [place] 24.3 H (11.5-14.5) % Plt Count 198 (130-400) K/uL MPV 11.1 (9.4-12.4) fL Immature Gran % (Auto) 1.5 % Neut % (Auto) 89.5 % Lymph % (Auto) 2.0 % Blaine % (Auto) 6.8 % Eos % (Auto) 0.0 % Baso % (Auto) 0.2 % Neut # (Auto) 13.98 H (1.40-6.50) K/uL Lymph # (Auto) 0.32 L (1.20-3.40) K/uL Blaine # (Auto) 1.06 H (0.11-0.59) K/uL Eos # (Auto) 0.00 (0.00-0.50) K/uL Baso # (Auto) 0.03 (0.00-0.20) K/uL Immature Gran # (Auto) 0.24 H (0.01-0.20) K/uL Anisocytosis Present Tear Drop Cells 1+ Sodium 134 L (136-145) mmol/L Potassium 4.4 (3.5-5.1) mmol/L Chloride 103 (98-107) mmol/L Carbon Dioxide 23 (21-32) mmol/L Anion Gap 8 (3-11) BUN 45 H (6-23) mg/dl Creatinine 1.12 (0.6-1.4) mg/dl Est Cr Clr Drug Dosing Not Reportable eGFR 70.67 BUN/Creatinine Ratio 40.2 H (10-20) Glucose 271 H (70-99(Fasting)) mg/dl POC Glucose (70-99) mg/dl Calcium 8.8 (8.6-10.3) mg/dl Total Bilirubin 0.7 (0.2-1.0) mg/dl AST 31 (13-39) U/L ALT 11 (7-52) U/L Alkaline Phosphatase 101 (34-104) U/L Total Protein 6.4 (6.0-8.3) gm/dl Albumin 3.6 (3.4-5.0) gm/dl Globulin 2.8 (2.5-4.0) gm/dl Albumin/Globulin Ratio 1.3 (0.9-2) Lipase 19 (11-82) U/L Urine Color Urine Appearance (Clear) Urine pH (4.5-7.5) Ur Specific [place] (1.000-1.030) Urine Protein (Negative) Urine Glucose (UA) (Negative) Urine Ketones (Negative) Urine Blood (Negative) Urine Nitrite (Negative) Urine Bilirubin (Negative) Urine Urobilinogen (Negative) Ur Leukocyte Esterase (Negative) Urine WBC (Auto) (0-5) /hpf Urine RBC (Auto) (0-2) /hpf U Hyaline Cast (Auto) (0-2) /lpf U Epithel Cells (Auto) (0-2) /hpf Urine Bacteria (Auto) (None Seen) Urine Comment PG Care Time/CCT Total # of Minutes Spent Total Time Spent with Patient: Total time spent is greater than 50% in coordination of care (as documented) at patient's floor/unit and/or counseling patient: I spent minutes overall addressing this case: 20 min in medical data review/discussion with referring pro vider(s) and/or preparation for the visit 20 min in direct interaction with the patient/exam 60 min in Advance Care Planning/Goals of Care discussions as detailed above in note (must be >16min) 15 min in subsequent review and synthesis of assessment and plan 25 min communicating with other providers regarding the patient's case: care mgt, nursing, primary team, oncology, oncology nursing team, rad onc, cancer clinic scheduling team Advanced Care Planning 99155 Advanced Care Planning 30 Min 90511 Advanced Care Planning Additional 30 [place] [address] IN/OBS CONSULT LVL 5,80M (25 - SIGNIFICANT, SEPARATELY IDENTIFIABLE ) Patient Type New Medical Decision Making High Complexity Diagnoses Cancer related pain G89.3 Advanced care planning/counseling discussion Z71.89 Abdominal pain, generalized R10.84 Weakness generalized R53.1 Palliative care by specialist Z51.5 Additional Codes Advanced Care Planning - 46737 Advanced Care Planning 30 Min: 70216 Advanced Care Planning 30 Min ([id number]) Advanced Care Planning - 08427 Advanced Care Planning Additional 30 Min: 18660 Advanced Care Planning Additional 30 Min ([id number]) Comment [id number], [id number]
--- NOTE | 2025-04-25 13:31 | Pharmacy Report ---
Pharmacy Glycemic Short Note 2 - Date of Service April 25, 2025 - Glycemic Short BSG Results (Last 24 hours): 04/24/25 04/24/25 04/25/25 16:30 20:57 05:59 Glucose 175 H POC Glucose 236 H 202 H 04/25/25 04/25/25 07:58 12:00 Glucose POC Glucose 239 H 173 H OUTPATIENT ANTIDIABETIC REGIMEN: * Lantus 38 units HS, metformin ASSESSMENT: 04/25 * Patient tolerating full liquid diet, discussion of IR placed J-tube which would require transfer. Goals of care discussion ongoing * BSGS remained in the 200s yesterday, titrated correction factor * Titrated lantus up initially this morning, improved BSG with lunch--- will give 35 units today (between weight/stress 2 and 3) and close to home basal dose 04/24 * Patient admitted with N/V, history of metastatic esophageal cancer currently receiving chemotherapy * BSGS have been elevated in the 200s since admission. * Split outpatient regimen 50/50 with basal/bolus. Will monitor for additional changes * Initially NPO has started on full liquid diet PLAN FOR INPATIENT GLYCEMIC CONTROL: * Hold outpatient oral diabetes medications * Basal insulin * Lantus 20 units SQ this morning and 15 units HS- will reassess in AM * Bolus insulin * NovoLog per scale ACHS or Q6hrs while NPO * Goal Range: Low 110 mg/dL - High 140 mg/dL * Correction Factor: 15 mg/dL/unit * Nutritional / Prandial insulin per carb ratio of 1 unit per 7 grams CHO consumed
--- NOTE | 2025-04-25 16:21 | Radiation OncologyConsultation ---
Date of Consultation April 25, 2025 Assessment & Plan (1) Gastroesophageal cancer: Assessment: Soon-to-be 70-year-old male with evidence of metastatic GE junction adenocarcinoma. He was started on systemic therapy receiving the initial treatment which he apparently tolerated poorly and chose to stop all systemic therapy. PET CT scan and CT scan of the abdomen and pelvis were recently performed. They did show evidence of progressing hepatic metastasis, enlarged left supraclavicular adenopathy, multiple enlarged periaortic lymph nodes and multiple hypodense masses scattered throughout the liver predominantly in the right hepatic lobe. There were few scattered subtle lucent bony lesions with increased uptake at the cervical, thoracic spine, the right pelvis and the right upper femur. Subsequent CT scan of the abdomen and pelvis show interval increase in the size and number of the multiple low-attenuation liver masses. The patient is able to take nutrition in the liquid form without difficulty and soft foods with mild difficulty. He is feeling better since stopping the mario motherapy. He was having some pain in the right hip and mostly in the abdomen likely due to progressive liver metastasis which has been helped with the initiation of pain medication. Treatment Options: 1. Entering hospice With continued pain medication as needed. 2. Palliative radiation to the right hip Recommendations: Since the patient's pain is controlled I would recommend that the patient enter hospice. If during hospice he develops progressive symptoms that could be helped by a short course of radiation we could stop hospice and r eceive a short course of palliative radiation and then reapply for hospice after completion. Plan: 1. The patient is in agreement with the plan to enter hospice. 2. I discussed with him the option of palliative radiation in the future if his symptoms progressed to the point where this would be helpful. He could stop hospice receive his short course of therapy and reapplied to hospice. 3. Continue follow-up with Dr. Silva (palliative care). 4. Continue follow-up with Dr. Sinha if appropriate. 5. Continue follow-up with PCP if appropriate. History of Present Illness Reason for Consultation: To evaluate the potential role of radiation prior to the patient entering hospice Requesting Physician: Dr. Silva Attending Physician: Balwinder Marte MD History of Present Illness Mr. Anna is a soon-to-be 70-year-old gentleman who presented to [facility] on 03/24/2025 with weight loss, chest pain, shortness of breath. Labs revealed severe anemia with hemoglobin of 5.7, hematocrit 19.8, MCV 78.0 with iron studies revealing transferrin saturation of 5%, serum iron of 21, ferritin of 6.4. CT CAP on 03/24/2025 revealed multiple hepatic lesions, collapsed stomach with mild concentric thickening near the gastroesophageal junction, gastric cardia and proximal body of stomach with mild perigastric fat stranding, few lymph nodes adjacent to the gastric cardia, tiny jamaal deposits involving greater omentum in the right mid and lower quadrant as well as 3 mm sized solid nodule in the superior segment of the right lower lobe, few subpleural ground glass nodules in the posterior basal segment of bilateral lower lobes. Upper endoscopy obtained 03/25 due to complaints of dysphagia and iron deficiency anemia revealed large fungating and ulcerating mass with bleeding in the GE junction, 40 cm from the incisors, mass was partially obstructing and circumferential in the gastric cardia. Patient was seen by Dr. Sinha for consideration of systemic therapy. She recommended treatment with FOLFOX plus Zolbetuximab For treatment of his stage IV GE junction adenocarcinoma. He underwent a repeat PET/CT scan on . This showed a few stable small pulmonary nodules with multiple enlarged left supraclavicular lymph nodes and enlarged left paraesophageal lymph node. There were multiple hypodense masses scattered throughout the liver with multiple enlarged periaortic lymph nodes. There were few scattered subtle lucent osseous lesions with increased uptake at the cervical spine, thoracic spine, right pelvis and right upper femur. Patient complained of fatigue, difficulty swallowing, poor appetite, dizziness and nausea from his initial systemic chemotherapy. He subsequently decided to not proceed with additional doses of systemic therapy and discussed entering hospice. The patient indicated that he was having some pain in the neck with the chemotherapy and mild to moderate pain intermittently in the right hip as well as pain in the abdominal region likely due to progressive hepatic metastasis. presently since completing chemo he is feeling better able to swallow liquids and some soft foods without difficulty. There is discussion about possibly considering a J-tube since he is not a candidate for a PEG tube for feeding. He underwent a CT scan of the abdomen and pelvis on . This showed interval increase in the size and number of the multiple low-attenuation liver mass lesions measuring up to 2.3 cm. There were unchanged mildly enlarged lymph nodes in the gastrohepatic ligament and small subcentimeter retroperitoneal periaortic lymph nodes. Again noted is wall thickening of the lesser curvature of the stomach with no sign of small bowel obstruction. There is evidence of prior cystectomy with ileal conduit formation from previous diagnosis and treatment of bladder cancer. There is no pelvic adenopathy appreciated. Allergies Allergy/AdvReac Type Severity Reaction Status Date / Time zolbetuximab-clzb AdvReac Severe Verified 04/25/25 10:54 [From Mandaylmalena] morphine AdvReac Unknown Verified 04/25/25 10:54 Home Medications Medication Instructions Recorded Confirmed Type aspirin 81 mg tablet,delayed 81 mg PO QPM 12/18/19 04/23/25 History release pen needle, diabetic 32 gauge x #300 ea 06/27/23 04/22/25 Rx 5/32" (BD Ultra-Fine Beverly Pen Needle) blood sugar diagnostic (OneTouch #400 ea 03/12/24 04/22/25 Rx Verio test strips) atorvastatin 40 mg tablet 40 mg PO HS #100 tabs 06/14/24 04/23/25 Rx gabapentin 800 mg tablet 800 mg PO TID 03/24/25 04/23/25 History ibuprofen 200 mg tablet 800 mg PO BID 03/24/25 04/23/25 History insulin glargine 100 unit/mL (3 38 unit subcut HS 03/24/25 04/23/25 History mL) subcutaneous pen (Lantus Solostar U-100 Insulin) mirtazapine 15 mg tablet 15 mg PO DAILY #30 tabs 04/03/25 04/23/25 Rx metformin 500 mg tablet,extended 500 mg PO BID 04/08/25 04/23/25 History release 24 hr omeprazole 40 mg capsule,delayed 40 mg PO QAM 04/08/25 04/23/25 History release prochlorperazine maleate 10 mg 10 mg PO Q6H PRN n/v 04/12/25 04/23/25 History tablet ferrous sulfate 325 mg (65 mg 325 mg PO DAILY #30 tabs 04/18/25 04/23/25 Rx iron) tablet (iron) oxycodone 10 mg tablet 10 mg PO Q4H PRN Pain 04/23/25 04/23/25 History Patient History Medical History (Updated 04/25/25 @ 10:55 by Daphne Hooper DNP) Adenocarcinoma Dx 03/25/25, mass in esophagus/stomach HTN (hypertension) Gastric mass s/p biopsy NIDIA (obstructive sleep apnea) Non-compliant w/ device History of anemia Hx of coronary artery disease IVY x 1 (2015) Hypomagnesemia Reactive depression (situational) 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 No noted recent/current issues Eustachian tube dysfunction Insulin dependent diabetes mellitus Diverticulosis High cholesterol Situational anxiety Diverticulitis Hx, no noted recent/current issues Bladder cancer (08/08/17) Status post cystoscopy and transurethral resection of bladder tumor Dyslipidemia Chronic back pain Diabetes mellitus Surgical History Port-A-Cath in place (04/15/25) Insertion of Right Internal Jugular Access Port with Fluoroscopy(Right) - Fabrizio York, DO History of infusaport central venous catheter removal History of infusaport central venous catheter insertion ~2017 (per [place] records) Hx of radical prostatectomy 2017, 09/29 to bladder cancer (per [place] records) History of esophagogastroduodenoscopy (EGD) (03/25/25) with biopsy History of urostomy History of back surgery (03/21/20) L2-S1 fusion S/P ureteral stent placement History of coronary angioplasty 2015 ([facility]) S/P tooth extraction S/P colonoscopy History of ankle surgery Family History Mother Colorectal cancer Heart disease Diabetes Cardiac disorder Myocardial infarction Father Hypertension Myocardial infarction Sister Breast cancer Denies family history of Ovarian cancer Prostate cancer Social History Smoking Status: Never smoker Tobacco Type: Cigarettes Age Started Using Tobacco: 16; Age Quit Using Tobacco: 56; packs per day: 1; Second Hand Exposure: No; Do You Dip or Chew Tobacco: No; Hx Alcohol Use: No Hx Substance Use: No Preferred Language: [place] Islander Communication Ability: Effective Visual Impairment: Limited Hearing Ability: Normal Resident Care Associate Required: No Beliefs That Will Affect Care: None marital status: Current Living Situation: Spouse Current Living Situation Comment: lives with a home current occupational status: retired How many Children do You have: 2 Feels Safe at Home: Yes Childhood Exposure to Second-Hand Smoke: Yes Diet: regular caffeine: Yes Dental Care, Regularly: No Physical Activity Frequency: Daily Seatbelt Use: always Sunscreen Use: No Assistive Devices: None Time Spent Attending This documentation has been prepared in full by Dr. Ellis. I have personally reviewed the services described and have reviewed the documentation to ensure its accuracy. I spent 20 minutes with direct face to face interaction with the patient which included obtaining clinical information, recommending a plan of action and answering questions. I spent 15 minutes reviewing his chart, reviewing his scans, discussion with palliative care and completion of this document. ANDREA
--- NOTE | 2025-04-25 19:08 | Discharge Summary ---
Discharge Summary Date of Service April 25, 2025 Principal Dx & Hospital Course #1 = Principal Diagnosis (1) Dysphagia: (2) Gastroesophageal cancer: (3) Metastatic cancer: (4) Dehydration: (5) Nausea & vomiting: Plan 69-year-old male with past medical history of metastatic esophageal cancer recently started on chemotherapy, bladder cancer s/p resection/urostomy in distant past, hypertension, hyperlipidemia, CAD, BPH, NIDIA. He was referred to the ED for persistent nausea/vomiting/anorexia associated with chemotherapy. #Esophageal cancer | Dysphagia | Nausea/Vomiting - N/V in setting of Toxic gastroenteritis caused by chemotherapy - GI consulted for possible PEG tube placement - due to patient's large, partially obstructing fungating esophageal mass, he is not an appropriate candidate for endoscopic placement for PEG tube; recommends general surgery consult - General surgery consulted - recommends IR placement for J-tube for less invasive approach - Radiation oncology consulted -given pain is controlled at present, recommend that he enters hospice now. 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 Patient will tolerate full liquid diet and fairly tolerates soft food. He can continue to eat what he likes/can tolerate - Hospice services set up on discharge. Hospice plan to see patient on 04/29 per patient's request of waiting until after his birthday/holiday weekend - Patient reports he has more than 10 days worth of pain medication at home to last him until his next palliative care appointment outpatient, so no further pain medications were prescribed on discharge. Patient has both his hospice company's phone number and palliative care's phone number if he were to need any further medications or have questions prior to hospice seeing him on 04/29 #UTI/Asymptomatic bacteriuria - urine culture grew pansensitive Klebsiella pneumoniae. No urinary symptoms. - Received 3 doses of IV ceftriaxone. No further antibiotics needed given higher suspicion for asymptomatic bacteriuria than acute UTI #Constipation - Continue bowel regimen as ordered #T2DM - Hold oral hypoglycemics while admitted. Resumed on discharge - Pharmacy glycemic consult managed while hospitalized VTE PPx: Lovenox, SCDs Dispo: Discharged home on hospice services 04/25 Notes For Next Care Provider Patient elected to discontinue cancer treatments and transition to hospice Admission HPI Per Admitting Provider 69-year-old male Anemia GERD diabetes depression hypertension hyperlipidemia deafness DJD CAD BPH NIDIA Gastroesophageal malignancy (GE junction mass) currently undergoing chemo was at the cancer center earlier today and retracted to the ED For persistent nausea vomiting and anorexia secondary to chemo. He has been constipated for the past 4 days. Reportedly the oncologist was concerned the patient may need a feeding tube. No fevers or chills. No hematemesis. No Chest pain shortness of breath lightheadedness symptoms or any other symptoms. at bedside. Discussed the case with ED physician. She Discussed the case with oncologist who Requested the admission Awaiting completion of home med rec Discharge Exam General: No acute distress, nondiaphoretic, well-developed. Skin: Warm, dry. No rashes or peripheral edema noted. Cardiac: Regular rate and rhythm without murmurs gallops or rubs. Pulm: Clear to auscultation bilaterally without wheezes, rales or rhonchi. Normal respiratory effort. 98% on room air. Abdominal: Soft, nontender, nondistended. Bowel sounds present. Urostomy present in RLQ. Neuro: A&O x3. No focal neurological deficits. Discharge Plan Discharge Items Patient Disposition: Hospice - Home Reason For Visit: N/V Discharge Diagnosis: Metastatic esophageal cancer, dysphagia Condition on Discharge: Fair Activity: Resume your previous activity Non-emergency contact: Primary Care Provider and Specialist Call non-emergency contact if: you have any medication questions, your symptoms worsen and your pain is not controlled Follow-up/Referrals: Vasyl Westbrook DO [Primary Care Provider] - (Follow-up as needed) Daphne Hooper DNP [Nurse Practitioner] - 05/08/25 12:00 pm (Follow-up as scheduled) Diet: Regular, Full liquid and Other - See Diet Comment Diet Comment: Diet as tolerated Addtl Attending Provider Instructions: Héctor, You were admitted to the hospital due to persistent nausea with vomiting following your chemotherapy treatments. Fortunately, your nausea and vomiting have resolved now that chemotherapy has been stopped. Per your discussion with palliative care, hospice services have been started for you. [facility] has been notified that you are interested in starting care with them. They will reach out to you on 04/29/25. If you should happen to need something sooner than Monday, please call Julia Monroy with [facility] at [phone]. You were treated with 3 doses of IV antibiotics for asymptomatic bacteriuria. No further antibiotics are needed on discharge. Since you said you have enough pain medication at home to last through your next palliative care appointment, no further pain medications have been prescribed on discharge. If you need anything over the weekend, please contact the hospice number above or your palliative care team. It was a pleasure taking care of you while in the hospital. I wish you the absolute best. Happy early birthday! Warm regards, Dianne Bourgeois PA-C Pending Studies at Discharge: No Stand-Alone Forms: My [facility] Medications and DC Order Prescriptions: Continued (DME) pen needle, diabetic [BD Ultra-Fine Beverly Pen Needle] 32 gauge x 5/32" needle See Rx Instructions .Route Qty: 300 3RF Rx Instructions: use with insulin injections TID (DME) OneTouch Verio test strips Strip See Rx Instructions .ROUTE .MEDSUPPLY Qty: 400 3RF Rx Instructions: test blood sugar QID ferrous sulfate [iron] 325 mg (65 mg iron) tablet 325 mg PO DAILY Qty: 30 0RF atorvastatin 40 mg tablet 40 mg PO HS Qty: 100 3RF Rx Instructions: for cholesterol aspirin 81 mg tablet,delayed release (DR/EC) 81 mg PO QPM mirtazapine 15 mg tablet 15 mg PO DAILY Qty: 30 2RF gabapentin 800 mg tablet 800 mg PO TID ibuprofen 200 mg Tablet 800 mg PO BID insulin glargine [Lantus Solostar U-100 Insulin] 100 unit/mL (3 mL) insulin pen 38 unit SUBCUT HS metformin 500 mg tablet extended release 24 hr 500 mg PO BID omeprazole 40 mg capsule,delayed release(DR/EC) 40 mg PO QAM oxycodone 10 mg tablet 10 mg PO Q4H PRN (Reason: Pain) prochlorperazine maleate 10 mg tablet 10 mg PO Q6H PRN (Reason: n/v) Discharge Orders: Discharge Order (Routine); Ordered 04/25/25 Ordered By: Dianne Bourgeois Admission Data Admit Date/Time: 04/23/25 13:48 Attending Provider: Balwinder Marte Admit Provider: Jagdish Porter Primary Care Provider: Vasyl Westbrook Other Providers: Jagdish Porter; Orlin Reyes; Shalom Snow; Damien Ellis; [facility] Other Interventions: Discharge Summary Assessment (RN) Last Done: 04/25/25 17:22 Hospital Stay Data Consultations 04/23/25 13:25 ED Decision to Admit Stat 04/23/25 14:08 Consult Palliative Care Stat 04/24/25 11:20 Consult Gastroenterology Routine 04/24/25 16:18 Consult General Surgery Routine 04/25/25 12:53 Consult Radiation Oncology Routine Pending Results Patient Have Any Pending Studies at Discharge: No Discharge Instructions Given to Patient (Per Discharging Provider) Héctor, You were admitted to the hospital due to persistent nausea with vomiting following your chemotherapy treatments. Fortunately, your nausea and vomiting have resolved now that chemotherapy has been stopped. Per your discussion with palliative care, hospice services have been started for you. [facility] has been notified that you are interested in starting care with them. They will reach out to you on 04/29/25. If you should happen to need something sooner than Monday, please call Julia Monroy with [facility] at [phone]. You were treated with 3 doses of IV antibiotics for asymptomatic bacteriuria. No further antibiotics are needed on discharge. Since you said you have enough pain medication at home to last through your next palliative care appointment, no further pain medications have been prescribed on discharge. If you need anything over the weekend, please contact the hospice number above or your palliative care team. It was a pleasure taking care of you while in the hospital. I wish you the absolute best. Happy early birthday! Warm regards, Dianne Bourgeois PA-C Supervising Physician Co-Signing Physician Notes Attending Attestation & Discharge Note: Chart reviewed, care plan d/w AKRRI Bourgeois. I agree w/ the smiley components of her discharge documentation. Of note - I did not perform bedside visit or exam on day of discharge. 69yo male with stage 4 GE junction adenocarcinoma, anemia, GERD, diabetes, depression, hypertension, hyperlipidemia, CAD, BPH, NIDIA, and prior bladder ca s/p radical cystectomy with ileal conduit. Has been treated at the [facility] and undergoing chemotherapy. Was seen on day of admission at the Cancer Center and referred to the ER due to nausea, vomiting, and inability to eat. Initially there was discussion about pursuing feeding tube placement for enteral nutrition. It was determined that he was not a PEG tube candidate. It was then recommended that he have J-tube placement. Palliative care was consulted, and while trying to determine feeding tube insertion, there were multiple discussions surrounding his over-arching treatment plan. Ultimately the patient decided against treating the cancer any further, and thus a feeding tube was deferred. Mr Anna is returning home with hospice services in place. He will be allowed to eat/drink as tolerated/as he wishes. Balwinder Marte MD Total Time Total Time Spent Total Time Spent (In Minutes): Greater than 30 minutes spent completing this discharge process including direct patient care, medication reconciliation, documentation, review of labs and images, and coordination of care. Coding Level of Care Code 47982 INP/OBS DISCH >30 MIN Diagnoses Dysphagia R13.10 Gastroesophageal cancer C16.0 Metastatic cancer C79.9 Dehydration E86.0 Nausea & vomiting R11.2
[2025-04-25] MEDS ORDERED: LANTUS PER UNIT CHARGE SC SCH (21:00)
--- NOTE | 2025-04-27 13:10 | Coding Query ---
CODING QUERY To promote full compliance with coding requirements relating to patient care, provider participation is requested in all cases of therapist radiation uncertainty. Please assist us with the question(s) below: Coding Question(s): Review of the dietary consult reveals pt with severe malnutrition evidenced by severe inadequate food and nutrient intake and severe weight loss. Pt had a 7.8% weight loss x 1 month and 19% weight loss x1 yr. Diet consult, chocolate Boost bid and monitoring. Pt with Gastroesophageal CA, anorexia and bone & liver mets. Please document a Dietary/Nutritional diagnosis that was treated during this inpatient stay. Thanks for your help! JOSIANE Betancur [facility] Physician's Response(s): # Severe protein calorie malnutrition # Principal Diagnosis: "that condition established after study, to be chiefly responsible for occasioning the admission of the patient to the hospital for care." Co-Existing Principal Diagnosis: "when two or more diagnoses equally meet the criteria for principal diagnosis as determined by the circumstances of admission, diagnostic work up, and/or therapy provided, and the Alphabetic Index, Tabular List, or another coding guideline does not provide sequencing direction, any one of the diagnoses may be sequenced first." "When the physician has documented what appears to be a current diagnosis in the body of the record, but has not included the diagnosis in the final diagnostic statement, the physician should be asked whether the diagnosis should be added." (Source Coding Clinic 2 QTR90. p3-4) PABLO
== END 2025-04-25 18:04 | disposition hospice, home (50) | DRG 393 ==
LOC: ED 09:43 → SUATTDRO 13:48 → 3E 13:48